=== PATIENT | male | born 1985 | race Caucasian/White ===

== ENCOUNTER 2018-01-23 13:05 | Emergency (ER) | payer BC ==
[2018-01-23] MEDS ORDERED: NA CHLORIDE 0.9% 1,000 ML ONE (13:29)
[2018-01-23 13:43] LABS: Absolute Lymphocytes (CBC) 1.8 K/uL (0.7-4.9); Absolute Monocytes 0.6 K/uL (0.1-1.3); Basophils % 0.6 % (0-1.3); Eosinophils % 0.3 % (0-4.4); Hematocrit 46.5 % (39.6-49.0); Lymphocytes % 15.9 % (15.3-44.8); MCH 29.7 pg (27.0-35.0); MCV 88.4 fL (80-100); MPV 8.7 fL (7.6-11.3); Monocytes % 5.6 % (3.3-12.3); RBC Red Blood Cell Count 5.26 M/uL (4.33-5.43)
[2018-01-23 13:48] LABS: Bicarbonate 26 mEq/L (21-31); Glucose Level 118 mg/dL (65-120); Lipase 29 U/L (22-51); Potassium 3.5 mEq/L (3.6-5.0); Sodium Level 139 mEq/L (135-145)
[2018-01-23 13:54] LABS: ALT/SGPT 15 IU/L (10-60); AST/SGOT 23 IU/L (10-42); Albumin 4.6 g/dL (3.2-5.5); Alkaline Phosphatase 65 IU/L (42-121); BUN Blood Urea Nitrogen 10 mg/dL (6-20); Bilirubin Direct 0.1 mg/dL (0-0.2); Bilirubin Total 0.5 mg/dL (0.3-1.2)
[2018-01-23] MEDS ORDERED: ONDANSETRON 4 MG/2 ML VIAL ONE (14:06)
[2018-01-23] MEDS ORDERED: MORPHINE 4 MG/ML SYR ONE (14:06)
[2018-01-23 14:28] LABS: Urine Blood NEGATIVE (NEG); Urine Glucose NEGATIVE (NEG); Urine Protein NEGATIVE (NEG); Urine Specific Gravity 1.015 (1.005-1.030); Urine pH 8.5 (5.0-7.0)
--- NOTE | 2018-01-23 15:29 | ER ---
Nurse's Notes [facility] Name: Slava Biswas Age: 32 yrs Sex: Male : 1985 Arrival Date: 01/23/2018 Time: 13:08 Bed 19 Private MD: Diagnosis: Unspecified abdominal pain Presentation: 01/23 13:17 Presenting complaint: Patient states: "I have Ulcerative Colitis, and I'm having a ss flare up." Pt reports abd pain that began this morning. Transition of care: patient was not received from another setting of care. Onset of symptoms was January 23, 2018. Care prior to arrival: None. 13:17 Method Of Arrival: Ambulatory ss 13:17 Acuity: TRACEE 3 ss Historical: - Allergies: 13:19 Codeine (Hives, rash); ss - PMHx: 13:19 Colitis; GERD; ss - PSHx: 13:19 Hernia repair; Tonsillectomy; nasal surgery; ss - Immunization history:: Adult Immunizations up to date. - Social history:: Smoking status: Patient/guardian denies using tobacco. Screenin:21 Abuse screen: Denies threats or abuse. Denies injuries from another. Nutritional aj1 screening: No deficits noted. Tuberculosis screening: No symptoms or risk factors identified. Assessment: 13:21 General: Appears in no apparent distress. uncomfortable, Behavior is calm, cooperative, aj1 appropriate for age. Pain: Complains of pain in right lower quadrant Pain does not radiate. Neuro: Level of Consciousness is awake, alert, obeys commands, Oriented to person, place, time, situation, Speech is normal, Facial symmetry appears normal. Cardiovascular: Patient's skin is warm and dry. Respiratory: Airway is patent Respiratory effort is even, unlabored, Respiratory pattern is regular, symmetrical. GI: Abdomen is flat, non-distended, Bowel sounds present X 4 quads. Abd is soft X 4 quads Abdomen is tender to palpation in right lower quadrant Reports diarrhea, nausea, Patient currently denies vomiting. : No signs and/or symptoms were reported regarding the genitourinary system. EENT: No signs and/or symptoms were reported regarding the EENT system. Derm: No signs and/or symptoms reported regarding the dermatologic system. Skin is pink, warm \\T\\ dry. normal. Musculoskeletal: No signs and/or symptoms reported regarding the musculoskeletal system. Circulation, motion, and sensation intact. 14:28 Reassessment: Patient appears in no apparent distress at this time. No changes from aj1 previously documented assessment. Patient and/or family updated on plan of care and expected duration. Pain level reassessed. Patient is alert, oriented x 3, equal unlabored respirations, skin warm/dry/pink. 15:43 Reassessment: Luc YAN discussed need for CT scan. Pt refuses to have CT scan done. kb1 Vital Signs: 13:19 Resp 16; Weight 113.4 kg; Height 5 ft. 10 in. (177.80 cm); Pain 7/10; ss 14:29 BP 134 / 89; Pulse 89; Resp 18; Pulse Ox 99% on R/A; aj1 15:47 BP 144 / 85; Pulse 85; Resp 18; Pulse Ox 100% ; kb1 13:19 Body Mass Index 35.87 (113.40 kg, 177.80 cm) ED Course: 13:08 Patient arrived in ED. sb2 13:16 Luc Portillo NP is PHCP. pm1 13:16 Pastor Esquivel MD is Attending Physician. pm1 13:17 Marietta Yu, RN is Primary Nurse. aj1 13:18 Triage completed. ss 13:19 Arm band placed on right wrist. ss 13:21 Patient has correct armband on for positive identification. aj1 13:21 No provider procedures requiring assistance completed. aj1 13:31 Initial lab(s) drawn, by wy, sent to lab. Inserted saline lock: 20 gauge in right 3 antecubital area, using aseptic technique. Blood collected. 13:58 Urine collected: clean catch specimen, clear. 3 15:28 Pastor Marquez MD is Referral Physician. pm1 15:48 IV discontinued, intact, bleeding controlled, No redness/swelling at site. Pressure kb1 dressing applied. Administered Medications: 13:31 Drug: NS 0.9% 1000 ml Route: IV; Rate: 1000 ml; Site: right antecubital; aj1 14:13 Follow up: IV Status: Completed infusion; IV Intake: 1000ml aj1 14:13 Drug: morphine 4 mg Route: IVP; Site: right antecubital; aj1 14:13 Drug: Zofran 4 mg Route: IVP; Site: right antecubital; aj1 15:44 Drug: Flagyl 500 mg Route: PO; kb1 15:45 Follow up: Response: Medication administered at discharge. kb1 15:45 Drug: Cipro 500 mg Route: PO; kb1 15:46 Follow up: Response: Medication administered at discharge. kb1 Intake: 14:13 IV: 1000ml; Total: 1000ml. aj1 Outcome: 15:29 Discharge ordered by MD. pm1 15:47 Discharged to home ambulatory. kb1 15:47 Condition: stable 15:47 Discharge instructions given to patient, Instructed on discharge instructions, follow up and referral plans. medication usage, Demonstrated understanding of instructions, follow-up care, medications, Prescriptions given X 3. 15:49 Patient left the ED. kb1 Signatures: Marietta Yu RN RN aj1 Ursula Encinas RN RN ss Luc Portillo, FARRAH CAFE SERVER pm1 Glenis Pappas 3 Elinor Gilbert RN RN kb1 Ariadna Bragg 2
--- NOTE | 2018-01-23 15:29 | EDPHYS ---
Physician Documentation [facility] Name: Slava Biswas Age: 32 yrs Sex: Male : 1985 Arrival Date: 01/23/2018 Time: 13:08 Bed 19 Private MD: ED Physician Pastor Esquivel HPI: 01/23 14:04 This 32 yrs old Male presents to ER via Ambulatory with complaints of Right pm1 Flank Pain. 14:04 The patient complains of pain in the right low back. Location: right lower quadrant. pm1 14:05 Onset: The symptoms/episode began/occurred this morning. Modifying factors: The pm1 symptoms are alleviated by nothing. the symptoms are aggravated by nothing. Associated signs and symptoms: Pertinent positives: diarrhea, nausea, Pertinent negatives: dysuria, fever, vomiting. The patient has experienced similar episodes in the past, multiple times, and the symptoms today are exactly the same, to previous ulcerative colitis flare ups. The patient has not recently seen a physician. Patient reports symptoms the same as prior ulcerative colitis flare umps. Patient manages his UC by eating well and probiotics. whenever he gets a flare up he typically gets a prescription of Cipro and Flagyl along with Ultram for pain. Historical: - Allergies: 13:19 Codeine (Hives, rash); ss - PMHx: 13:19 Colitis; GERD; ss - PSHx: 13:19 Hernia repair; Tonsillectomy; nasal surgery; ss - Immunization history:: Adult Immunizations up to date. - Social history:: Smoking status: Patient/guardian denies using tobacco. ROS: 14:05 Constitutional: Negative for fever, chills, and weight loss, Eyes: Negative for injury, pm1 pain, redness, and discharge, ENT: Negative for injury, pain, and discharge, Neck: Negative for injury, pain, and swelling, Cardiovascular: Negative for chest pain, palpitations, and edema, Respiratory: Negative for shortness of breath, cough, wheezing, and pleuritic chest pain. 14:05 : Negative for injury, bleeding, discharge, and swelling, MS/Extremity: Negative for injury and deformity, Skin: Negative for injury, rash, and discoloration, Neuro: Negative for headache, weakness, numbness, tingling, and seizure. 14:05 Abdomen/GI: Positive for abdominal pain, nausea, of the right lower quadrant, Mucoid bloody stool, Negative for vomiting, constipation. 14:05 Back: Positive for flank pain, on the right. Exam: 14:05 Constitutional: This is a well developed, well nourished patient who is awake, alert, pm1 and in no acute distress. Head/Face: Normocephalic, atraumatic. Eyes: Pupils equal round and reactive to light, extra-ocular motions intact. Lids and lashes normal. Conjunctiva and sclera are non-icteric and not injected. Cornea within normal limits. Periorbital areas with no swelling, redness, or edema. ENT: Nares patent. No nasal discharge, no septal abnormalities noted. Tympanic membranes are normal and external auditory canals are clear. Oropharynx with no redness, swelling, or masses, exudates, or evidence of obstruction, uvula midline. Mucous membranes moist. Neck: Trachea midline, no thyromegaly or masses palpated, and no cervical lymphadenopathy. Supple, full range of motion without nuchal rigidity, or vertebral point tenderness. No Meningismus. Chest/axilla: Normal chest wall appearance and motion. Nontender with no deformity. No lesions are appreciated. Cardiovascular: Regular rate and rhythm with a normal S1 and S2. No gallops, murmurs, or rubs. No pulse deficits. Respiratory: Lungs have equal breath sounds bilaterally, clear to auscultation and percussion. No rales, rhonchi or wheezes noted. No increased work of breathing, no retractions or nasal flaring. 14:05 Back: No spinal tenderness. No costovertebral tenderness. Full range of motion. Skin: Warm, dry with normal turgor. Normal color with no rashes, no lesions, and no evidence of cellulitis. MS/ Extremity: Pulses equal, no cyanosis. Neurovascular intact. Full, normal range of motion. 14:05 Abdomen/GI: Inspection: abdomen appears normal, Bowel sounds: normal, Palpation: abdomen is soft and non-tender. 14:05 Neuro: Orientation: is normal, Motor: is normal, moves all fours, Sensation: is normal, no obvious gross deficits, Gait: is steady, at a normal pace, without difficulty. Vital Signs: 13:19 Resp 16; Weight 113.4 kg; Height 5 ft. 10 in. (177.80 cm); Pain 7/10; ss 14:29 BP 134 / 89; Pulse 89; Resp 18; Pulse Ox 99% on R/A; aj1 15:47 BP 144 / 85; Pulse 85; Resp 18; Pulse Ox 100% ; kb1 13:19 Body Mass Index 35.87 (113.40 kg, 177.80 cm) ss MDM: 13:19 Patient medically screened. pm1 15:25 Refusal of service: The patient/guardian displays adequate decision making capability pm1 and despite a detailed discussion of alternatives, benefits, risks, and consequences refuses: CT Scan, Patient feels that his pain is exactly like his prior exacerbations of ulcerative colitis so he does not want a CT. If his pain worsened he said he will return for reevaluation and a CT. 15:25 Data reviewed: vital signs. Data interpreted: Pulse oximetry: on room air is 99 %. pm1 Interpretation: normal. 15:28 Counseling: I had a detailed discussion with the patient and/or guardian regarding: the pm1 historical points, exam findings, and any diagnostic results supporting the discharge/admit diagnosis, lab results, the need for outpatient follow up, a bench lay out technician, to return to the emergency department if symptoms worsen or persist or if there are any questions or concerns that arise at home. 01/23 13:20 Order name: Basic Metabolic Panel; Complete Time: 14:00 pm1 01/23 13:20 Order name: CBC with Diff; Complete Time: 14:00 pm1 01/23 13:20 Order name: Hepatic Function; Complete Time: 14:00 pm1 01/23 13:20 Order name: Lipase; Complete Time: 14:00 pm1 01/23 14:03 Order name: Urine Dipstick--Ancillary (enter results); Complete Time: 14:40 bd 01/23 13:20 Order name: IV Saline Lock; Complete Time: 13:32 pm1 01/23 13:20 Order name: Labs collected and sent; Complete Time: 13:32 pm1 01/23 13:20 Order name: Urine Dipstick-Ancillary (obtain specimen); Complete Time: 13:58 pm1 Administered Medications: 13:31 Drug: NS 0.9% 1000 ml Route: IV; Rate: 1000 ml; Site: right antecubital; [facility] 14:13 Follow up: IV Status: Completed infusion; IV Intake: 1000ml aj1 14:13 Drug: morphine 4 mg Route: IVP; Site: right antecubital; aj1 14:13 Drug: Zofran 4 mg Route: IVP; Site: right antecubital; aj1 15:44 Drug: Flagyl 500 mg Route: PO; kb1 15:45 Follow up: Response: Medication administered at discharge. kb1 15:45 Drug: Cipro 500 mg Route: PO; kb1 15:46 Follow up: Response: Medication administered at discharge. kb1 Disposition: 01/23/18 15:29 Discharged to Home. Impression: Unspecified abdominal pain. - Condition is Stable. - Discharge Instructions: Abdominal Pain, Adult, Ulcerative Colitis. - Prescriptions for Flagyl 500 mg Oral Tablet - take 1 tablet by ORAL route every 8 hours for 10 days; 30 tablet. Cipro 500 mg Oral Tablet - take 1 tablet by ORAL route every 12 hours for 7 days; 14 tablet. Tramadol 50 mg Oral Tablet - take 1 tablet by ORAL route every 8 hours as needed; 12 tablet. - Medication Reconciliation Form, Thank You Letter, Antibiotic Education, Prescription Opioid Use form. - Follow up: Emergency Department; When: As needed; Reason: Worsening of condition. Follow up: Pastor Marquez MD; When: 2 - 3 days; Reason: Recheck today's complaints, Continuance of care, Re-evaluation by your physician. - Problem is new. - Symptoms have improved. Addendum: 01/25/2018 07:31 Co-signature as Attending Physician, Pastor Esquivel MD I agree with the assessment and w a plan of care. Signatures: Dispatcher [employer] Marietta Chan RN RN aj1 Ursula Encinas RN RN Luc Portillo, FARRAH NON LINEAR EDITOR pm1 Pastor Esquivel MD MD wa Brown, Kristina, RN RN kb1
[2018-01-23] MEDS ORDERED: metroNIDAZOLE 500 MG TABLET ONE (15:33)
[2018-01-23] MEDS ORDERED: CIPROFLOXACIN HCL 500 MG TAB ONE (15:34)
== END 2018-01-23 15:49 | disposition home or self-care (01) ==
LOC: ER 13:05
DX: R10.9 Unspecified abdominal pain (principal); K21.9 Gastro-esophageal reflux disease without esophagitis; Z88.5 Allergy status to narcotic agent
CPT/HCPCS: 36415; 80048; 80076; 81003; 83690; 85025; 96361; 96374; 96375; 99284; J2405; J7030

== ENCOUNTER 2018-02-16 12:33 | Emergency (ER) | payer BC ==
[2018-02-16] MEDS ORDERED: HYDROCODONE/APAP 7.5/325 MG TAB ONE (13:05)
--- NOTE | 2018-02-16 14:20 | RAD REPORT ---
EXAM DESCRIPTION: RAD - Hand Right 3 View - 02/16/2018 2:06 pm CLINICAL HISTORY: Right hand pain status post injury FINDINGS: No fracture or dislocation is seen.
--- NOTE | 2018-02-16 14:28 | EDPHYS ---
Physician Documentation [facility] Name: Slava Biswas Age: 32 yrs Sex: Male : 1985 Arrival Date: 02/16/2018 Time: 12:48 Bed 24 Private MD: ED Physician Bacilio Newton HPI: 02/16 13:46 This 32 yrs old Male presents to ER via Ambulatory with complaints of Crush kb Injury To Hand. 13:47 The patient or guardian reports a contusion, injury, pain, swelling, tenderness. The kb complaints affect the dorsum of right hand. Context: The problem was sustained at home, outdoors, resulted from a crush injury, by a heavy object, bucket full of tools fell onto hand while cleaning out the garage. Onset: The symptoms/episode began/occurred today. Modifying factors: The symptoms are alleviated by nothing, the symptoms are aggravated by nothing. Associated signs and symptoms: The patient has no apparent associated signs or symptoms. Severity of symptoms: At their worst the symptoms were moderate, in the emergency department the symptoms are unchanged. The patient has not experienced similar symptoms in the past. The patient has not recently seen a physician. Historical: - Allergies: 12:56 Codeine (Hives, rash); ss - PMHx: 12:56 Colitis; GERD; ss - PSHx: 12:56 Hernia repair; Tonsillectomy; nasal surgery; ss - Immunization history:: Last tetanus immunization: up to date. - Social history:: Smoking status: Patient/guardian denies using tobacco. ROS: 13:47 Constitutional: Negative for fever, chills, and weight loss, Cardiovascular: Negative kb for chest pain, palpitations, and edema, Respiratory: Negative for shortness of breath, cough, wheezing, and pleuritic chest pain, Abdomen/GI: Negative for abdominal pain, nausea, vomiting, diarrhea, and constipation, Skin: Negative for injury, rash, and discoloration, Neuro: Negative for headache, weakness, numbness, tingling, and seizure. 13:47 MS/extremity: Positive for injury or acute deformity, contusion, decreased range of motion, pain, swelling, tenderness, Negative for abrasion, bite, deformity, erythema, laceration, paresthesias, puncture, rash, tingling, warmth. Exam: 13:47 Constitutional: This is a well developed, well nourished patient who is awake, alert, kb and in no acute distress. Head/Face: Normocephalic, atraumatic. Chest/axilla: Normal chest wall appearance and motion. Nontender with no deformity. No lesions are appreciated. Cardiovascular: Regular rate and rhythm with a normal S1 and S2. No gallops, murmurs, or rubs. Normal PMI, no JVD. No pulse deficits. Respiratory: Lungs have equal breath sounds bilaterally, clear to auscultation and percussion. No rales, rhonchi or wheezes noted. No increased work of breathing, no retractions or nasal flaring. Abdomen/GI: Soft, non-tender, with normal bowel sounds. No distension or tympany. No guarding or rebound. No evidence of tenderness throughout. Neuro: Awake and alert, GCS 15, oriented to person, place, time, and situation. Cranial nerves II-XII grossly intact. Motor strength 5/5 in all extremities. Sensory grossly intact. Cerebellar exam normal. Normal gait. 13:47 Musculoskeletal/extremity: Extremities: grossly normal except: noted in the dorsum of right hand: contusion, decreased ROM, ecchymosis, pain, swelling, tenderness, ROM: intact in all extremities, Circulation is intact in all extremities. Sensation intact. Vital Signs: 12:56 BP 131 / 94; Pulse 91; Resp 18 S; Temp 98.3(TE); Pulse Ox 97% on R/A; Weight 113.4 kg ss (R); Height 5 ft. 10 in. (177.80 cm) (R); Pain 7/10; 14:36 BP 134 / 90; Pulse 90; Resp 18; Pulse Ox 99% on R/A; kr2 12:56 Body Mass Index 35.87 (113.40 kg, 177.80 cm) ss MDM: 12:57 Patient medically screened. kb 13:49 Data reviewed: vital signs, nurses notes. Data interpreted: Pulse oximetry: on room air kb is 97 %. Interpretation: normal. 14:27 Counseling: I had a detailed discussion with the patient and/or guardian regarding: the kb historical points, exam findings, and any diagnostic results supporting the discharge/admit diagnosis, radiology results, the need for outpatient follow up, a family practitioner, to return to the emergency department if symptoms worsen or persist or if there are any questions or concerns that arise at home. 02/16 13:02 Order name: Hand Right 3 View XRAY; Complete Time: 14:21 kb Administered Medications: 13:06 Drug: [place] (7.5 mg-325 mg) 1 tabs Route: PO; kr2 14:25 Follow up: Response: No adverse reaction; Pain is decreased kr2 Disposition: 18:08 Co-signature as Attending Physician, Bacilio Newton MD. rn Disposition: 02/16/18 14:28 Discharged to Home. Impression: Contusion of right hand. - Condition is Stable. - Discharge Instructions: Hand Contusion, [id number]. - Prescriptions for Tramadol 50 mg Oral Tablet - take 1 tablet by ORAL route every 8 hours as needed; 12 tablet. - Medication Reconciliation Form, Thank You Letter, Antibiotic Education, Prescription Opioid Use form. - Follow up: Emergency Department; When: As needed; Reason: Worsening of condition. Follow up: Private Physician; When: 2 - 3 days; Reason: Recheck today's complaints, Continuance of care, Re-evaluation by your physician. Signatures: Dispatcher [employer] EDOR Veronica Holcomb, SUPERVISORY IT SPECIALIST-C SUPERVISORY IT SPECIALIST-Ckb Bacilio Newton MD MD rn Smirch, Shelby, RN RN ss Rosario Khan RN RN kr2 Corrections: (The following items were deleted from the chart) 14:40 14:28 02/16/2018 14:28 Discharged to Home. Impression: Contusion of right hand. kr2 Condition is Stable. Forms are Medication Reconciliation Form, Thank You Letter, Antibiotic Education, Prescription Opioid Use. Follow up: Emergency Department; When: As needed; Reason: Worsening of condition. Follow up: Private Physician; When: 2 - 3 days; Reason: Recheck today's complaints, Continuance of care, Re-evaluation by your physician. kb
--- NOTE | 2018-02-16 14:28 | ER ---
Nurse's Notes [facility] Name: Slava Biswas Age: 32 yrs Sex: Male : 1985 Arrival Date: 02/16/2018 Time: 12:48 Bed 24 Private MD: Diagnosis: Contusion of right hand Presentation: 02/16 12:55 Presenting complaint: Patient states: "I smashed my hand with a 20-lb bucket of tools". ss pt c/o right hand pain. Care prior to arrival: None. 12:55 Acuity: TRACEE 4 ss 12:55 Method Of Arrival: Ambulatory 12:55 Transition of care: patient was not received from another setting of care. Onset of ss symptoms was February 16, 2018. Initial Sepsis Screen: Does the patient meet any 2 criteria? No. Patient's initial sepsis screen is negative. Does the patient have a suspected source of infection? No. Patient's initial sepsis screen is negative. Historical: - Allergies: 12:56 Codeine (Hives, rash); ss - PMHx: 12:56 Colitis; GERD; ss - PSHx: 12:56 Hernia repair; Tonsillectomy; nasal surgery; ss - Immunization history:: Last tetanus immunization: up to date. - Social history:: Smoking status: Patient/guardian denies using tobacco. Screenin:13 Abuse screen: Denies threats or abuse. Denies injuries from another. Nutritional kr2 screening: No deficits noted. Tuberculosis screening: No symptoms or risk factors identified. Fall Risk None identified. Assessment: 13:09 General: Appears in no apparent distress. uncomfortable, well groomed, well developed, kr2 well nourished, Behavior is calm, cooperative. Pain: Complains of pain in right hand Pain currently is 5 out of 10 on a pain scale. Quality of pain is described as aching, Is continuous, Alleviated by nothing. Neuro: Level of Consciousness is awake, alert, obeys commands, Oriented to person, place, time, situation, Intact. Cardiovascular: Capillary refill < 3 seconds in bilateral fingers Patient's skin is warm and dry. Respiratory: Airway is patent Respiratory effort is even, unlabored, Respiratory pattern is regular, symmetrical. GI: Abdomen is round non-distended. : No signs and/or symptoms were reported regarding the genitourinary system. EENT: Derm: Skin is intact, is healthy with good turgor, Skin is pink, warm \\T\\ dry. Derm: Bruising that is dark purple, on right hand. Musculoskeletal: Circulation, motion, and sensation intact. Swelling present in dorsal aspect of proximal phalanx of right middle finger, dorsal aspect of proximal phalanx of right ring finger, dorsal aspect of proximal phalanx of right little finger and dorsum of right hand. Injury Description: Crush injury sustained to right hand. 14:39 Reassessment: Patient appears in no apparent distress at this time. Patient and/or kr2 family updated on plan of care and expected duration. Pain level reassessed. Patient is alert, oriented x 3, equal unlabored respirations, skin warm/dry/pink. Given ice pack. Vital Signs: 12:56 BP 131 / 94; Pulse 91; Resp 18 S; Temp 98.3(TE); Pulse Ox 97% on R/A; Weight 113.4 kg ss (R); Height 5 ft. 10 in. (177.80 cm) (R); Pain 7/10; 14:36 BP 134 / 90; Pulse 90; Resp 18; Pulse Ox 99% on R/A; kr2 12:56 Body Mass Index 35.87 (113.40 kg, 177.80 cm) ss ED Course: 12:48 Patient arrived in ED. sb2 12:55 Triage completed. ss 12:55 Arm band placed on. ss 12:57 Veronica Holcomb FNP-C [facility]. kb 12:57 Bacilio Newton MD is Attending Physician. kb 13:02 Rosario Khan RN is Primary Nurse. kr2 13:13 Patient has correct armband on for positive identification. Bed in low position. Call kr2 light in reach. Side rails up X2. Pulse ox on. NIBP on. Door closed. Warm blanket given. Head of bed elevated. 14:04 X-ray completed. Portable x-ray completed in exam room. Patient tolerated procedure la2 well. 14:05 Hand Right 3 View XRAY In Process Unspecified. EDMS 14:38 No provider procedures requiring assistance completed. Patient did not have IV access kr2 during this emergency room visit. Administered Medications: 13:06 Drug: [place] (7.5 mg-325 mg) 1 tabs Route: PO; kr2 14:25 Follow up: Response: No adverse reaction; Pain is decreased kr2 Outcome: 14:28 Discharge ordered by MD. deshpande 14:39 Discharged to home ambulatory. kr2 14:39 Condition: good 14:39 Discharge instructions given to patient, Instructed on discharge instructions, follow up and referral plans. medication usage, Demonstrated understanding of instructions, follow-up care, medications, Prescriptions given X 1. 14:40 Patient left the ED. kr2 Signatures: Dispatcher [employer] EDMS Veronica Holcomb, ADAM-Noemy MEDINA-Ursula Rivers, RN RN Kourtney Garcia2 Rosario Khan RN RN kr2 Ariadna Bragg2
== END 2018-02-16 14:40 | disposition home or self-care (01) ==
LOC: ER 12:33
DX: S60.221A Contusion of right hand, initial encounter (principal); X58.XXXA Exposure to other specified factors, initial encounter; Y93.H9 Activity, other involving exterior property and land maintenance, building and construction; Y92.008 Other place in unspecified non-institutional (private) residence as the place of occurrence of the external cause; Z88.5 Allergy status to narcotic agent
CPT/HCPCS: 99284

== ENCOUNTER 2018-06-29 13:50 | Emergency (ER) | payer BC ==
[2018-06-29] MEDS ORDERED: NA CHLORIDE 0.9% 1,000 ML ONE (14:25)
[2018-06-29] MEDS ORDERED: ONDANSETRON 4 MG/2 ML VIAL ONE (14:26)
[2018-06-29] MEDS ORDERED: FENTANYL CITR 100 MCG/2 ML ONE (14:26)
[2018-06-29 14:51] LABS: Absolute Lymphocytes (CBC) 1.9 K/uL (0.7-4.9); Absolute Monocytes 0.8 K/uL (0.1-1.3); Absolute Neutrophil 8.9 K/uL (1.8-8.0); Basophils % 0.3 % (0-1.3); Eosinophils % 0.6 % (0-4.4); Hematocrit 47.3 % (39.6-49.0); MCH 31.1 pg (27.0-35.0); MCV 89.4 fL (80-100); MPV 8.9 fL (7.6-11.3); Monocytes % 6.6 % (3.3-12.3); RBC Red Blood Cell Count 5.28 M/uL (4.33-5.43)
[2018-06-29 15:18] LABS: Albumin 4.1 g/dL (3.4-5.0); Bilirubin Direct 0.1 mg/dL (0-0.2); Bilirubin Total 0.6 mg/dL (0.2-1.0); Potassium 3.8 mmol/L (3.5-5.1); Protein, Total 8.2 g/dL (6.4-8.2)
--- NOTE | 2018-06-29 15:19 | RAD REPORT ---
EXAM DESCRIPTION: CT - Abdomen Pelvis W Contrast - 06/29/2018 3:06 pm CLINICAL HISTORY: Abdominal pain with diarrhea since this morning COMPARISON: January 2017 TECHNIQUE: Computed axial tomography of the abdomen pelvis was obtained. 100 cc Isovue-300 was admin istered intravenously. Oral contrast was not requested which limits evaluation of bowel. All CT scans are performed using dose optimization technique as appropriate and may include automated exposure control or mA/KV adjustment according to patient size. FINDINGS: The liver, spleen, pancreas, adrenal and kidneys appear unremarkable. There is no evidence of diverticulitis. The appendix is normal. There is apparent thickening of a portion of the wall of the descending colon IMPRESSION: Apparent thickening of the wall of a portion of the descending colon may be secondary to incomplete distention or a mild colitis
--- NOTE | 2018-06-29 15:25 | ER ---
Nurse's Notes [facility] Name: Slava Biswas Age: 33 yrs Sex: Male : 1985 Arrival Date: 06/29/2018 Time: 13:52 Bed 13 Private MD: Cecilio Merida Diagnosis: Ulcerative colitis Presentation: 06/29 14:02 Presenting complaint: Patient states: "I think I am having a flare of my Ulcerative aj Colitis." Diarrhea and abdominal pain since this AM. Transition of care: patient was not received from another setting of care. Onset of symptoms was June 29, 2018. Risk Assessment: Do you want to hurt yourself or someone else? Patient reports no desire to harm self or others. Initial Sepsis Screen: Does the patient meet any 2 criteria? No. Patient's initial sepsis screen is negative. Does the patient have a suspected source of infection? No. Patient's initial sepsis screen is negative. Care prior to arrival: None. 14:02 Method Of Arrival: Ambulatory aj 14:02 Acuity: TRACEE 3 aj Triage Assessment: 14:04 General: Appears in no apparent distress. uncomfortable, Behavior is calm, cooperative, aj appropriate for age. Pain: Complains of pain in right lower quadrant and left lower quadrant. Neuro: Level of Consciousness is awake, alert, obeys commands, Oriented to person, place, time, situation, Appropriate for age. Respiratory: Airway is patent Respiratory effort is even, unlabored, Respiratory pattern is regular, symmetrical. GI: Reports lower abdominal pain, diarrhea. Derm: Skin is intact, is healthy with good turgor, Skin is pink, warm \\T\\ dry. normal. Historical: - Allergies: 14:04 Codeine (Hives, rash); aj - Home Meds: 14:04 Prilosec 40 mg Oral cpDR 1 cap 2 times per day [Active]; Probiotic Oral [Active]; aj - PMHx: 14:04 Colitis; GERD; aj - PSHx: 14:04 Hernia repair; Tonsillectomy; nasal surgery; aj - Immunization history:: Adult Immunizations up to date. - Social history:: Smoking status: Patient/guardian denies using tobacco. - Ebola Screening: : Patient negative for fever greater than or equal to 101.5 degrees Fahrenheit, and additional compatible Ebola Virus Disease symptoms Patient denies exposure to infectious person Patient denies travel to an Ebola-affected area in the 21 days before illness onset No symptoms or risks identified at this time. Screenin:03 Abuse screen: Denies threats or abuse. Denies injuries from another. Nutritional jl7 screening: No deficits noted. Tuberculosis screening: No symptoms or risk factors identified. Fall Risk IV access (20 points). Total Brennan Fall Scale indicates No Risk (0-24 pts). Assessment: 14:30 General: Appears in no apparent distress. uncomfortable, Behavior is calm, cooperative, jl7 appropriate for age. Pain: Complains of pain in left lower quadrant and right lower quadrant Quality of pain is described as sharp, Pain began this morning Is continuous. Neuro: Level of Consciousness is awake, alert, obeys commands, Oriented to person, place, time, situation. Cardiovascular: Patient's skin is warm and dry. Respiratory: Airway is patent Respiratory effort is even, unlabored, Respiratory pattern is regular, symmetrical. GI: Abdomen is round non-distended, Bowel sounds present X 4 quads. Abd is soft X 4 quads Abdomen is tender to palpation in right lower quadrant and left lower quadrant. : No signs and/or symptoms were reported regarding the genitourinary system. EENT: No signs and/or symptoms were reported regarding the EENT system. Derm: Skin is pink, warm \\T\\ dry. Musculoskeletal: No signs and/or symptoms reported regarding the musculoskeletal system. 15:30 Reassessment: Patient and/or family updated on plan of care and expected duration. Pain jl7 level reassessed. Patient is alert, oriented x 3, equal unlabored respirations, skin warm/dry/pink. 15:50 Reassessment: Pt reports increased pain, requesting something for pain before he jl7 leaves, provider notified, see MAR for orders. Vital Signs: 14:04 BP 130 / 96; Pulse 113; Resp 20; Temp 99.3; Pulse Ox 98% on R/A; Weight 115.67 kg; aj Height 5 ft. 10 in. (177.80 cm); 15:03 BP 131 / 86; Pulse 87; Resp 16 S; Pulse Ox 96% on R/A; jl7 15:50 BP 128 / 81; Pulse 86; Resp 16 S; Pulse Ox 99% on R/A; Pain 6/10; jl7 14:04 Body Mass Index 36.59 (115.67 kg, 177.80 cm) aj ED Course: 13:52 Patient arrived in ED. mr 13:52 Cecilio Merida MD is Private Physician. mr 14:03 Triage completed. aj 14:04 Arm band placed on left wrist. Patient placed in an exam room. aj 14:10 Luis Carlos Thomas PA is PHCP. jr8 14:10 Pastor Esquivel MD is Attending Physician. jr8 14:18 Brittny Zepeda RN is Primary Nurse. jl7 14:22 Radiology exam delayed due to lab results not completed at this time. (BUN/Creatinine). sj 15:[address] via wheelchair. cw1 15:03 Patient has correct armband on for positive identification. Placed in gown. Bed in low jl7 position. Call light in reach. Side rails up X 1. Pulse ox on. NIBP on. Warm blanket given. 15:03 Initial lab(s) drawn, by me, by EMS personnel. Urine collected: clean catch specimen, jl7 clear. Inserted saline lock: 20 gauge in right antecubital area, using aseptic technique. Blood collected. 15:06 CT completed. Patient moved back from CT. cw1 15:07 CT Abd/Pelvis - W/Contrast In Process Unspecified. EDMS 15:24 Pastor Marquez MD is Referral Physician. jr8 16:02 No provider procedures requiring assistance completed. IV discontinued, intact, jl7 bleeding controlled, No redness/swelling at site. Pressure dressing applied. Administered Medications: 13:32 Drug: Zofran 4 mg Route: IVP; Site: right antecubital; jl7 15:00 Follow up: Response: No adverse reaction jl7 14:30 Drug: NS 0.9% 1000 ml Route: IV; Rate: 1000 ml; Site: right antecubital; jl7 15:47 Follow up: Response: No adverse reaction; IV Status: Completed infusion jl7 14:35 Drug: fentaNYL (PF) 50 mcg Route: IVP; Site: right antecubital; jl7 15:00 Follow up: Response: No adverse reaction; Pain is decreased jl7 15:54 Drug: fentaNYL (PF) 50 mcg Route: IVP; Site: right antecubital; jl7 16:00 Follow up: Response: Medication administered at discharge. jl7 15:58 Drug: Cipro 500 mg Route: PO; jl7 15:59 Follow up: Response: No adverse reaction; Medication administered at discharge. 15:59 Drug: Flagyl 500 mg Route: PO; 15:59 Follow up: Response: Medication administered at discharge. jl7 Outcome: 15:24 Discharge ordered by . jrGuilherme 16:02 Discharged to home ambulatory. jl7 16:02 Condition: stable 16:02 Discharge instructions given to patient, Instructed on discharge instructions, follow up and referral plans. medication usage, Demonstrated understanding of instructions, follow-up care, medications, Prescriptions given X 3. 16:03 Patient left the ED. jl7 Signatures: Dispatcher [employer] EDMS Bernie Don, RN RN Josseline Lozano, Maegan Amezquita, Tashia cw1 Luis Carlos Thomas PA PA jr8 Leal, Jahala, RN RN jl7 Corrections: (The following items were deleted from the chart) 59 15:59 Response: No adverse reaction 7 jl7
--- NOTE | 2018-06-29 15:25 | EDPHYS ---
Physician Documentation [facility] Name: Slava Biswas Age: 33 yrs Sex: Male : 1985 Arrival Date: 06/29/2018 Time: 13:52 Bed 13 Private MD: Cecilio Merida ED Physician Pastor Esquivel HPI: 06/29 14:16 This 33 yrs old Male presents to ER via Ambulatory with complaints of jr8 Abdominal Pain. 14:16 The patient presents with abdominal pain right lower quadrant. Onset: The jr8 symptoms/episode began/occurred acutely, today. The symptoms do not radiate. Associated signs and symptoms: Pertinent positives: diarrhea, nausea. The symptoms are described as stabbing. Modifying factors: The symptoms are alleviated by nothing, the symptoms are aggravated by nothing. Severity of pain: At its worst the pain was moderate in the emergency department the pain is unchanged. The patient has experienced similar episodes in the past, a few times. The patient has not recently seen a physician. 14:16 History of UC. Feels he is having a flare up of it . jr8 Historical: - Allergies: 14:04 Codeine (Hives, rash); aj - Home Meds: 14:04 Prilosec 40 mg Oral cpDR 1 cap 2 times per day [Active]; Probiotic Oral [Active]; aj - PMHx: 14:04 Colitis; GERD; aj - PSHx: 14:04 Hernia repair; Tonsillectomy; nasal surgery; aj - Immunization history:: Adult Immunizations up to date. - Social history:: Smoking status: Patient/guardian denies using tobacco. - Ebola Screening: : Patient negative for fever greater than or equal to 101.5 degrees Fahrenheit, and additional compatible Ebola Virus Disease symptoms Patient denies exposure to infectious person Patient denies travel to an Ebola-affected area in the 21 days before illness onset No symptoms or risks identified at this time. ROS: 14:16 Eyes: Negative for injury, pain, redness, and discharge, ENT: Negative for injury, jr8 pain, and discharge, Neck: Negative for injury, pain, and swelling, Cardiovascular: Negative for chest pain, palpitations, and edema, Respiratory: Negative for shortness of breath, cough, wheezing, and pleuritic chest pain, Back: Negative for injury and pain, MS/Extremity: Negative for injury and deformity, Skin: Negative for injury, rash, and discoloration, Neuro: Negative for headache, weakness, numbness, tingling, and seizure. 14:16 Abdomen/GI: Positive for abdominal pain, nausea, diarrhea, Negative for vomiting, constipation, abdominal distension, anorexia, dysphagia, hematemesis, black/tarry stool, rectal pain, rectal bleeding, bowel incontinence, flatulence. Exam: 14:16 Eyes: Pupils equal round and reactive to light, extra-ocular motions intact. Lids and jr8 lashes normal. Conjunctiva and sclera are non-icteric and not injected. Cornea within normal limits. Periorbital areas with no swelling, redness, or edema. ENT: Nares patent. No nasal discharge, no septal abnormalities noted. Tympanic membranes are normal and external auditory canals are clear. Oropharynx with no redness, swelling, or masses, exudates, or evidence of obstruction, uvula midline. Mucous membranes moist. Neck: Trachea midline, no thyromegaly or masses palpated, and no cervical lymphadenopathy. Supple, full range of motion without nuchal rigidity, or vertebral point tenderness. No Meningismus. Cardiovascular: Regular rate and rhythm with a normal S1 and S2. No gallops, murmurs, or rubs. Normal PMI, no JVD. No pulse deficits. Respiratory: Lungs have equal breath sounds bilaterally, clear to auscultation and percussion. No rales, rhonchi or wheezes noted. No increased work of breathing, no retractions or nasal flaring. Back: No spinal tenderness. No costovertebral tenderness. Full range of motion. Skin: Warm, dry with normal turgor. Normal color with no rashes, no lesions, and no evidence of cellulitis. MS/ Extremity: Pulses equal, no cyanosis. Neurovascular intact. Full, normal range of motion. Neuro: Awake and alert, GCS 15, oriented to person, place, time, and situation. Cranial nerves II-XII grossly intact. Motor strength 5/5 in all extremities. Sensory grossly intact. Cerebellar exam normal. Normal gait. 14:16 Abdomen/GI: Inspection: obese Bowel sounds: active, all quadrants, Palpation: soft, in all quadrants, moderate abdominal tenderness, in the right lower quadrant, mass, is not appreciated, rebound tenderness, is not appreciated, voluntary guarding, is not appreciated, involuntary guarding, is not appreciated, no appreciated organomegaly, Indicators: McBurney's point is tender, Titus's sign is negative, Rovsing's sign is negative, Liver: no appreciated palpable abnormalities, tenderness, is not appreciated. Vital Signs: 14:04 BP 130 / 96; Pulse 113; Resp 20; Temp 99.3; Pulse Ox 98% on R/A; Weight 115.67 kg; aj Height 5 ft. 10 in. (177.80 cm); 15:03 BP 131 / 86; Pulse 87; Resp 16 S; Pulse Ox 96% on R/A; jl7 15:50 BP 128 / 81; Pulse 86; Resp 16 S; Pulse Ox 99% on R/A; Pain 6/10; jl7 14:04 Body Mass Index 36.59 (115.67 kg, 177.80 cm) aj MDM: 14:10 Patient medically screened. jr8 15:23 Data reviewed: vital signs, nurses notes, lab test result(s), radiologic studies, CT jr8 scan, and as a result, I will discharge patient. Data interpreted: Pulse oximetry: on room air is 96 %. Interpretation: normal. 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 06/29 14:14 Order name: Basic Metabolic Panel; Complete Time: 15:22 06/29 14:14 Order name: CBC with Diff; Complete Time: 14:59 06/29 14:14 Order name: Creatinine for Radiology; Complete Time: 15:16 06/29 14:14 Order name: Hepatic Function; Complete Time: 15:22 jr06/29 14:14 Order name: Lipase; Complete Time: 15:22 06/29 15:27 Order name: Urine Dipstick--Ancillary (enter results) ag 06/29 14:15 Order name: CT Abd/Pelvis - W/Contrast; Complete Time: 15:22 06/29 15:27 Order name: Urine Dipstick-Ancillary; Complete Time: 15:57 EDMS 06/29 14:14 Order name: IV Saline Lock; Complete Time: 15:01 [facility] 06/29 14:14 Order name: Labs collected and sent; Complete Time: 15:00 [facility] 06/29 14:14 Order name: Urine Dipstick-Ancillary (obtain specimen); Complete Time: 14:18 jr Administered Medications: 13:32 Drug: Zofran 4 mg Route: IVP; Site: right antecubital; jl7 15:00 Follow up: Response: No adverse reaction jl7 14:30 Drug: NS 0.9% 1000 ml Route: IV; Rate: 1000 ml; Site: right antecubital; jl7 15:47 Follow up: Response: No adverse reaction; IV Status: Completed infusion jl7 14:35 Drug: fentaNYL (PF) 50 mcg Route: IVP; Site: right antecubital; jl7 15:00 Follow up: Response: No adverse reaction; Pain is decreased jl7 15:54 Drug: fentaNYL (PF) 50 mcg Route: IVP; Site: right antecubital; jl7 16:00 Follow up: Response: Medication administered at discharge. jl7 15:58 Drug: Cipro 500 mg Route: PO; jl7 15:59 Follow up: Response: No adverse reaction; Medication administered at discharge. jl7 15:59 Drug: Flagyl 500 mg Route: PO; jl7 15:59 Follow up: Response: Medication administered at discharge. 7 Disposition: 06/29/18 15:24 Discharged to Home. Impression: Ulcerative colitis. - Condition is Stable. - Discharge Instructions: Ulcerative Colitis, Adult. - Prescriptions for Cipro 500 mg Oral Tablet - take 1 tablet by ORAL route every 12 hours for 10 days; 20 tablet. Flagyl 500 mg Oral Tablet - take 1 tablet by ORAL route every 6 hours for 10 days; 40 tablet. Tramadol 50 mg Oral Tablet - take 1 tablet by ORAL route every 8 hours as needed; 20 tablet. - Medication Reconciliation Form, Thank You Letter, Antibiotic Education, Prescription Opioid Use form. - Follow up: Pastor Marquez MD; When: 2 - 3 days; Reason: Recheck today's complaints, Continuance of care, Re-evaluation by your physician. - Problem is new. - Symptoms have improved. Addendum: 07/01/2018 08:06 Co-signature as Attending Physician, Pastor Esquivel MD I agree with the assessment and w a plan of care. Signatures: Dispatcher [employer] Bernie Bone, RN RN Luis Carlos Fermin PA PA jr8 Brittny Zepeda RN RN jl7 Pastor Esquivel MD MD tx Corrections: (The following items were deleted from the chart) 06/29 16:03 15:24 06/29/2018 15:24 Discharged to Home. Impression: Ulcerative colitis. Condition is jl7 Stable. Forms are Medication Reconciliation Form, Thank You Letter, Antibiotic Education, Prescription Opioid Use. Follow up: Pastor Marquez; When: 2 - 3 days; Reason: Recheck today's complaints, Continuance of care, Re-evaluation by your physician. Problem is new. Symptoms have improved. jr8
[2018-06-29 15:56] LABS: Urine Blood NEGATIVE (NEG); Urine Glucose NEGATIVE (NEG); Urine Protein NEGATIVE (NEG); Urine Specific Gravity 1.015 (1.005-1.030); Urine pH 7.5 (5.0-7.0)
[2018-06-29] MEDS ORDERED: metroNIDAZOLE 500 MG TABLET ONE (15:57)
[2018-06-29] MEDS ORDERED: CIPROFLOXACIN HCL 500 MG TAB ONE (15:58)
== END 2018-06-29 16:03 | disposition home or self-care (01) ==
LOC: ER 13:50
DX: K51.90 Ulcerative colitis, unspecified, without complications (principal); K21.9 Gastro-esophageal reflux disease without esophagitis; Z88.6 Allergy status to analgesic agent
CPT/HCPCS: 36415; 74177; 80048; 80076; 81003; 83690; 85025; 96361; 96374; 96375; 99284; J2405; J3010; J7030; Q9967

== ENCOUNTER 2018-07-12 11:33 | Emergency (ER) | payer BC ==
[2018-07-12] MEDS ORDERED: FENTANYL CITR 100 MCG/2 ML ONE (12:36)
[2018-07-12] MEDS ORDERED: Ringers Lactate 1,000 ML IV ONE (12:36)
[2018-07-12] MEDS ORDERED: ONDANSETRON 4 MG/2 ML VIAL ONE (12:36)
[2018-07-12 12:57] LABS: Absolute Lymphocytes (CBC) 1.5 K/uL (0.7-4.9); Absolute Monocytes 0.7 K/uL (0.1-1.3); Absolute Neutrophil 7.8 K/uL (1.8-8.0); Basophils % 0.4 % (0-1.3); Eosinophils % 0.5 % (0-4.4); Hematocrit 42.8 % (39.6-49.0); Lymphocytes % 15.3 % (15.3-44.8); MCH 31.7 pg (27.0-35.0); MCV 89.4 fL (80-100); MPV 8.8 fL (7.6-11.3); Monocytes % 7.2 % (3.3-12.3); RBC Red Blood Cell Count 4.79 M/uL (4.33-5.43)
[2018-07-12 13:08] LABS: Albumin 3.9 g/dL (3.4-5.0); Bilirubin Direct 0.1 mg/dL (0-0.2); Bilirubin Total 0.3 mg/dL (0.2-1.0); Protein, Total 7.8 g/dL (6.4-8.2)
--- NOTE | 2018-07-12 13:54 | EDPHYS ---
Physician Documentation [facility] Name: Slava Biswas Age: 33 yrs Sex: Male : 1985 Arrival Date: 07/12/2018 Time: 11:36 Bed 14 Private MD: Cecilio Merida ED Physician Bacilio Newton HPI: 07/12 12:16 This 33 yrs old Male presents to ER via Ambulatory with complaints of jmm Abdominal Pain, Diarrhea. 12:16 The patient presents with abdominal pain right lower quadrant. Onset: The jmm symptoms/episode began/occurred gradually, 1 day(s) ago. The symptoms do not radiate. Associated signs and symptoms: Pertinent positives: diarrhea. The symptoms are described as achy, crampy, dull. The patient has experienced similar episodes in the past, several times. This is a 33 year old male with a history of UC that presents to the ED with right lower abdominal cramping beginning last night with diarrhea which was initially blood and now mucusy. Patient states his symptoms are similar UC flares. Patient denies vomiting. . Historical: - Allergies: 11:49 Codeine (Hives, rash); ss - PMHx: 11:49 Colitis; GERD; ss - PSHx: 11:49 Hernia repair; Tonsillectomy; nasal surgery; ss - Immunization history:: Adult Immunizations up to date. - Social history:: Smoking status: Patient/guardian denies using tobacco. - Ebola Screening: : Patient denies exposure to infectious person Patient denies travel to an Ebola-affected area in the 21 days before illness onset. ROS: 12:16 Constitutional: Negative for fever, chills, and weight loss, Cardiovascular: Negative jmm for chest pain, palpitations, and edema, Respiratory: Negative for shortness of breath, cough, wheezing, and pleuritic chest pain. 12:16 Abdomen/GI: Positive for abdominal pain, diarrhea. 12:16 All other systems are negative. Exam: 12:16 Head/Face: atraumatic. Eyes: EOMI, no conjunctival erythema appreciated ENT: Moist jmm Mucus Membranes Neck: Trachea midline, Supple Chest/axilla: Normal chest wall appearance and motion. Cardiovascular: Regular rate and rhythm. No edema appreciated Respiratory: Normal respirations, no respiratory distress appreciated 12:16 Constitutional: The patient appears in no acute distress, alert, awake. 12:16 Abdomen/GI: Inspection: abdomen appears normal, Bowel sounds: normal, Palpation: soft, in the right lower quadrant, no guarding appreciated, not rebound appreciated. 12:16 Back: CVA tenderness, is absent. 12:16 Musculoskeletal/extremity: ROM: intact in all extremities. 12:16 Skin: Appearance: Color: normal in color. 12:16 Neuro: Orientation: is normal, Mentation: is normal, Memory: is normal. 12:16 Psych: Behavior/mood is pleasant, cooperative. Vital Signs: 11:49 BP 161 / 103; Pulse 110; Resp 16; Temp 97.3(TE); Pulse Ox 99% ; Weight 113.4 kg; Height ss 5 ft. 10 in. (177.80 cm); Pain 7/10; 12:43 BP 135 / 89; Pulse 86; Resp 18; Pulse Ox 96% on R/A; Pain 7/10; em 13:00 BP 129 / 83; Pulse 78; Resp 18; Pulse Ox 100% on R/A; Pain 5/10; em 14:24 BP 116 / 90; Pulse 84; Resp 18; Pulse Ox 99% on R/A; Pain 4/10; em 11:49 Body Mass Index 35.87 (113.40 kg, 177.80 cm) MDM: 12:16 Patient medically screened. [facility] 13:51 Data reviewed: vital signs, nurses notes, lab test result(s), radiologic studies, CT [facility] scan. Data interpreted: Pulse oximetry: on room air is 96 %. Interpretation: normal. Counseling: I had a detailed discussion with the patient and/or guardian regarding: the historical points, exam findings, and any diagnostic results supporting the discharge/admit diagnosis, the presence of at least one elevated blood pressure reading (>120/80) during this emergency department visit, lab results, radiology results, to return to the emergency department if symptoms worsen or persist or if there are any questions or concerns that arise at home. ED course: I discussed risks/benefits of CT imaging with the patient. Patient states his pain is similar to previous UC flares. Patient has no rebound or guarding in the right lower quadrant but patient does complain of generalized ache to the area. patient will be given a course of abx along with early appendicities or worsening abdominal pain return precautions. Patient will otherwise follow up with Dr. Marquez early next week. Patient understood and agrees with the plan of care. . 07/12 12:10 Order name: Basic Metabolic Panel; Complete Time: 13:13 [facility] 07/12 12:10 Order name: CBC with Diff; Complete Time: 13:13 [facility] 07/12 12:10 Order name: Creatinine for Radiology; Complete Time: 13:13 [facility] 07/12 12:10 Order name: Hepatic Function; Complete Time: 13:13 [facility] 07/12 12:10 Order name: Lipase; Complete Time: 13:13 [facility] 07/12 14:20 Order name: Urine Dipstick--Ancillary (enter results) 07/12 12:10 Order name: IV Saline Lock; Complete Time: 12:40 [facility] 07/12 12:10 Order name: Labs collected and sent; Complete Time: 12:40 [facility] Administered Medications: 12:28 CANCELLED (Physician Discretion): Lactated Ringers Solution 1000 ml IV at 1000 TKO aa5 continuous 12:44 Drug: Lactated Ringers Solution 1000 ml Route: IV; Rate: 1000 units/hr; Site: right em antecubital; 13:40 Follow up: IV Status: Completed infusion; IV Intake: 1000ml em 12:45 Drug: Zofran 4 mg Route: IVP; Site: right antecubital; ss 13:40 Follow up: Response: No adverse reaction em 12:45 Drug: fentaNYL (PF) 50 mcg Route: IVP; Site: right antecubital; ss 13:00 Follow up: Response: No adverse reaction; Pain is decreased em 13:52 Drug: fentaNYL (PF) 50 mcg Route: IVP; Site: right antecubital; em 14:20 Follow up: Response: No adverse reaction; Pain is decreased em Disposition: 15:46 Co-signature as Attending Physician, Bacilio Newton MD. rn Disposition: 07/12/18 13:54 Discharged to Home. Impression: Other ulcerative colitis. - Condition is Stable. - Discharge Instructions: Ulcerative Colitis, Adult. - Prescriptions for Flagyl 500 mg Oral Tablet - take 1 tablet by ORAL route every 8 hours for 10 days; 30 tablet. Ultram 50 mg Oral Tablet - take 1 tablet by ORAL route every 6 hours As needed; 20 tablet. Cipro 500 mg Oral Tablet - take 1 tablet by ORAL route every 12 hours for 7 days; 14 tablet. - Medication Reconciliation Form, Thank You Letter, Antibiotic Education, Prescription Opioid Use form. - Follow up: Pastor Marquez MD; When: 2 - 3 days; Reason: Recheck today's complaints, Continuance of care, Re-evaluation by your physician. Signatures: Dispatcher [employer] EDMS Florentino Georges PA PA Lavon Jones, RESIDENT BUYER RESIDENT BUYER em Bacilio Newton MD MD rn Calderon, Audri, RN RN aa5 Ursula Encinas RN RN ss Corrections: (The following items were deleted from the chart) 12:28 12:10 Lactated Ringers Solution 1000 ml IV at 1000 TKO continuous ordered. sonu aa5 12:28 12:28 Lactated Ringers Solution 1000 ml IV at 1000 TKO continuous ordered. ruma aa5 14:26 13:54 07/12/2018 13:54 Discharged to Home. Impression: Other ulcerative colitis. em Condition is Stable. Forms are Medication Reconciliation Form, Thank You Letter, Antibiotic Education, Prescription Opioid Use. Follow up: Pastor Marquez; When: 2 - 3 days; Reason: Recheck today's complaints, Continuance of care, Re-evaluation by your physician. sonu
--- NOTE | 2018-07-12 13:54 | ER ---
Nurse's Notes [facility] Name: Slava Biswas Age: 33 yrs Sex: Male : 1985 Arrival Date: 07/12/2018 Time: 11:36 Bed 14 Private MD: Cecilio Merida Diagnosis: Other ulcerative colitis Presentation: 07/12 11:47 Presenting complaint: Patient states: abd pain nausea and diarrhea that began last ss night. Pt believes this is a flare up of his colitis that he was dealing with approx 2 days ago. Transition of care: patient was not received from another setting of care. Onset of symptoms was July 11, 2018. Risk Assessment: Do you want to hurt yourself or someone else? Patient reports no desire to harm self or others. Initial Sepsis Screen: Does the patient meet any 2 criteria? HR > 90 bpm. Does the patient have a suspected source of infection? No. Patient's initial sepsis screen is negative. Care prior to arrival: None. 11:47 Method Of Arrival: Ambulatory ss 11:47 Acuity: TRACEE 3 ss Historical: - Allergies: 11:49 Codeine (Hives, rash); ss - PMHx: 11:49 Colitis; GERD; ss - PSHx: 11:49 Hernia repair; Tonsillectomy; nasal surgery; ss - Immunization history:: Adult Immunizations up to date. - Social history:: Smoking status: Patient/guardian denies using tobacco. - Ebola Screening: : Patient denies exposure to infectious person Patient denies travel to an Ebola-affected area in the 21 days before illness onset. Screenin:43 Abuse screen: Denies threats or abuse. Nutritional screening: No deficits noted. em Tuberculosis screening: No symptoms or risk factors identified. Fall Risk None identified. Assessment: 12:00 General: Appears uncomfortable, Behavior is calm, cooperative. Pain: Complains of pain aa5 in right lower quadrant Pain does not radiate. Pain currently is 7 out of 10 on a pain scale. Quality of pain is described as sharp, Pain began 2 weeks ago Is continuous. Neuro: Level of Consciousness is awake, alert, obeys commands, Oriented to person, place, time, situation. Cardiovascular: Heart tones S1 S2 present Rhythm is regular. Respiratory: Airway is patent Respiratory effort is even, unlabored, Respiratory pattern is regular, symmetrical, Breath sounds are clear bilaterally. GI: Abdomen is round non-distended, Bowel sounds present X 4 quads. Abd is soft X 4 quads Abdomen is tender to palpation in right lower quadrant Reports diarrhea, nausea, Patient currently denies vomiting. : No signs and/or symptoms were reported regarding the genitourinary system. EENT: No signs and/or symptoms were reported regarding the EENT system. Derm: Skin is pink, warm \T\ dry. Musculoskeletal: Range of motion: intact in all extremities. 13:00 Reassessment: Patient appears in no apparent distress at this time. Patient and/or em family updated on plan of care and expected duration. Pain level reassessed. Patient is alert, oriented x 3, equal unlabored respirations, skin warm/dry/pink. rates pain 5/10 Patient states feeling better. 14:23 Reassessment: Patient appears in no apparent distress at this time. Patient and/or em family updated on plan of care and expected duration. Pain level reassessed. Patient is alert, oriented x 3, equal unlabored respirations, skin warm/dry/pink. rates pain 4/10 Patient states feeling better. Vital Signs: 11:49 BP 161 / 103; Pulse 110; Resp 16; Temp 97.3(TE); Pulse Ox 99% ; Weight 113.4 kg; Height ss 5 ft. 10 in. (177.80 cm); Pain 7/10; 12:43 BP 135 / 89; Pulse 86; Resp 18; Pulse Ox 96% on R/A; Pain 7/10; em 13:00 BP 129 / 83; Pulse 78; Resp 18; Pulse Ox 100% on R/A; Pain 5/10; em 14:24 BP 116 / 90; Pulse 84; Resp 18; Pulse Ox 99% on R/A; Pain 4/10; em 11:49 Body Mass Index 35.87 (113.40 kg, 177.80 cm) ED Course: 11:36 Patient arrived in ED. mr 11:36 Cecilio Merida MD is Private Physician. mr 11:48 Triage completed. ss 11:49 Arm band placed on right wrist. ss 11:55 Florentino Georges PA is PHCP. [facility] 11:55 Bacilio Newton MD is Attending Physician. [facility] 12:00 Report given to Lavon Isbell LVN. aa5 12:05 Marzena Rust, RN is Primary Nurse. aa5 12:43 Patient has correct armband on for positive identification. Placed in gown. Bed in low em position. Call light in reach. 12:43 Initial lab(s) drawn, by me, sent to lab. Inserted saline lock: 20 gauge in right em antecubital area, using aseptic technique. Blood collected. 13:53 Pastor Marquez MD is Referral Physician. [facility] 14:22 No provider procedures requiring assistance completed. IV discontinued, intact, em bleeding controlled, No redness/swelling at site. Pressure dressing applied. Administered Medications: 12:28 CANCELLED (Physician Discretion): Lactated Ringers Solution 1000 ml IV at 1000 TKO aa5 continuous 12:44 Drug: Lactated Ringers Solution 1000 ml Route: IV; Rate: 1000 units/hr; Site: right em antecubital; 13:40 Follow up: IV Status: Completed infusion; IV Intake: 1000ml em 12:45 Drug: Zofran 4 mg Route: IVP; Site: right antecubital; ss 13:40 Follow up: Response: No adverse reaction em 12:45 Drug: fentaNYL (PF) 50 mcg Route: IVP; Site: right antecubital; ss 13:00 Follow up: Response: No adverse reaction; Pain is decreased em 13:52 Drug: fentaNYL (PF) 50 mcg Route: IVP; Site: right antecubital; em 14:20 Follow up: Response: No adverse reaction; Pain is decreased em Intake: 13:40 IV: 1000ml; Total: 1000ml. em Outcome: 13:54 Discharge ordered by MD. [facility] 14:22 Discharged to home ambulatory. em 14:22 Condition: good 14:22 Discharge instructions given to patient, Instructed on discharge instructions, follow up and referral plans. medication usage, Demonstrated understanding of instructions, follow-up care, medications, Prescriptions given X 3. 14:26 Patient left the ED. em Signatures: Florentino Georges PA PA jmm Rivera, Maria mr Isbell, Lavon, ACCOUNT ASSOCIATE ACCOUNT ASSOCIATE em Marzena Rust, RN RN aa5 Ursula Encinas RN RN ss Corrections: (The following items were deleted from the chart) 11:50 11:47 Initial Sepsis Screen: Does the patient meet any 2 criteria? No. Patient's ss initial sepsis screen is negative. Does the patient have a suspected source of infection? No. Patient's initial sepsis screen is negative. ss
[2018-07-12 14:47] LABS: Urine Blood NEGATIVE (NEG); Urine Glucose NEGATIVE (NEG); Urine Protein NEGATIVE (NEG); Urine Specific Gravity 1.015 (1.005-1.030); Urine pH 8.5 (5.0-7.0)
== END 2018-07-12 14:26 | disposition home or self-care (01) ==
LOC: ER 11:33
DX: K51.80 Other ulcerative colitis without complications (principal); Z88.5 Allergy status to narcotic agent
CPT/HCPCS: 36415; 80048; 80076; 81003; 83690; 85025; 96361; 96374; 96375; 99284; J2405; J3010

== ENCOUNTER 2018-09-20 10:19 | Emergency (ER) | payer BC ==
[2018-09-20] MEDS ORDERED: FENTANYL CITR 100 MCG/2 ML ONE (11:01)
[2018-09-20] MEDS ORDERED: ONDANSETRON 4 MG/2 ML VIAL ONE (11:01)
[2018-09-20] MEDS ORDERED: NA CHLORIDE 0.9% 1,000 ML ONE (11:01)
[2018-09-20 11:10] LABS: Absolute Lymphocytes (CBC) 1.7 K/uL (0.7-4.9); Absolute Monocytes 0.8 K/uL (0.1-1.3); Absolute Neutrophil 6.8 K/uL (1.8-8.0); Basophils % 0.4 % (0-1.3); Eosinophils % 0.2 % (0-4.4); Hematocrit 45.2 % (39.6-49.0); Lymphocytes % 18.3 % (15.3-44.8); MCH 31.3 pg (27.0-35.0); MCV 89.3 fL (80-100); Monocytes % 8.1 % (3.3-12.3); RBC Red Blood Cell Count 5.06 M/uL (4.33-5.43)
[2018-09-20 11:23] LABS: Albumin 4.4 g/dL (3.4-5.0); Bilirubin Direct 0.2 mg/dL (0-0.2); Bilirubin Total 0.7 mg/dL (0.2-1.0); Potassium 3.6 mmol/L (3.5-5.1); Protein, Total 8.4 g/dL (6.4-8.2)
--- NOTE | 2018-09-20 13:43 | ER ---
Nurse's Notes [facility] Name: Slava Biswas Age: 33 yrs Sex: Male : 1985 Arrival Date: 09/20/2018 Time: 10:22 Bed 8 Private MD: Cecilio Merida Diagnosis: Other ulcerative colitis Presentation: 09/20 10:33 Presenting complaint: Patient states: RLQ pain and nausea since this morning. Hx hb Colitis, GERD. Transition of care: patient was not received from another setting of care. Onset of symptoms was September 20, 2018. Risk Assessment: Do you want to hurt yourself or someone else? Patient reports no desire to harm self or others. Initial Sepsis Screen: Does the patient meet any 2 criteria? No. Patient's initial sepsis screen is negative. Does the patient have a suspected source of infection? No. Patient's initial sepsis screen is negative. Care prior to arrival: None. 10:33 Method Of Arrival: Ambulatory hb 10:33 Acuity: TRACEE 3 hb Historical: - Allergies: 10:34 Codeine (Hives, rash); hb - Home Meds: 10:34 Prilosec 40 mg Oral cpDR 1 cap 2 times per day [Active]; Probiotic Oral [Active]; hb - PMHx: 10:34 Colitis; GERD; hb - PSHx: 10:34 Hernia repair; Tonsillectomy; nasal surgery; hb - Immunization history:: Adult Immunizations up to date. - Social history:: Smoking status: Patient/guardian denies using tobacco. - Ebola Screening: : No symptoms or risks identified at this time. Screenin:36 Abuse screen: Denies threats or abuse. Denies injuries from another. Nutritional hb screening: No deficits noted. Tuberculosis screening: No symptoms or risk factors identified. Fall Risk None identified. Assessment: 10:36 General: Appears in no apparent distress. Behavior is calm, cooperative. Pain: Pain hb currently is 7 out of 10 on a pain scale. Neuro: Level of Consciousness is awake, alert, obeys commands, Oriented to person, place, time, situation. Cardiovascular: Heart tones S1 S2 present Capillary refill < 3 seconds Patient's skin is warm and dry. Respiratory: Airway is patent Respiratory effort is even, unlabored, Respiratory pattern is regular, symmetrical, Breath sounds are clear bilaterally. GI: Abdomen is non-distended, Bowel sounds present X 4 quads. Abd is soft and non tender X 4 quads. Reports lower abdominal pain, nausea. : No signs and/or symptoms were reported regarding the genitourinary system. EENT: No signs and/or symptoms were reported regarding the EENT system. Derm: Skin is intact, is healthy with good turgor, Skin is pink, warm \T\ dry. Musculoskeletal: No signs and/or symptoms reported regarding the musculoskeletal system. 11:15 Pain: Pain currently is 4 out of 10 on a pain scale. jl7 11:39 Reassessment: Patient and/or family updated on plan of care and expected duration. Pain jl7 level reassessed. Patient is alert, oriented x 3, equal unlabored respirations, skin warm/dry/pink. Pain: Pain currently is 7 out of 10 on a pain scale. 12:30 Reassessment: Patient appears in no apparent distress at this time. No changes from jl7 previously documented assessment. Patient and/or family updated on plan of care and expected duration. Pain level reassessed. Patient is alert, oriented x 3, equal unlabored respirations, skin warm/dry/pink. 13:30 Reassessment: Patient appears in no apparent distress at this time. Patient and/or jl7 family updated on plan of care and expected duration. Pain level reassessed. Patient is alert, oriented x 3, equal unlabored respirations, skin warm/dry/pink. Patient states feeling better. Patient states symptoms have improved. Vital Signs: 10:33 BP 152 / 93; Pulse 98; Resp 16; Temp 98.8(O); Pulse Ox 100% on R/A; Pain 7/10; hb 11:38 BP 126 / 84; Pulse 75; Resp 16 S; Pulse Ox 97% on R/A; jl7 12:45 BP 131 / 88; Pulse 66; Resp 16 S; Pulse Ox 100% on R/A; Pain 7/10; jl7 13:45 BP 129 / 88; Pulse 98; Resp 16 S; Pulse Ox 100% on R/A; Pain 3/10; jl7 ED Course: 10:22 Patient arrived in ED. mr 10:22 Cecilio Merida MD is Private Physician. mr 10:34 Triage completed. hb 10:36 Luc Portillo NP is PHCP. pm1 10:36 Sinan Cole MD is Attending Physician. pm1 10:36 Arm band placed on right wrist. hb 10:38 Patient has correct armband on for positive identification. Placed in gown. Bed in low hb position. Call light in reach. Side rails up X 1. 10:49 Brittny Zepeda RN is Primary Nurse. jl7 10:49 Initial lab(s) drawn, by ne, sent to lab. Inserted saline lock: 20 gauge in right 5 antecubital area, using aseptic technique. Blood collected. 11:01 Basic Metabolic Panel Sent. mh5 11:01 CBC with Diff Sent. mh5 11:01 Hepatic Function Sent. mh5 11:01 Lipase Sent. mh5 11:19 Pulse ox on. NIBP on. 5 13:56 No provider procedures requiring assistance completed. IV discontinued, intact, jl7 bleeding controlled, No redness/swelling at site. Pressure dressing applied. Administered Medications: 10:57 Drug: Zofran 4 mg Route: IVP; Site: right antecubital; jl7 11:15 Follow up: Response: No adverse reaction; Nausea is decreased jl7 10:59 Drug: NS 0.9% 1000 ml Route: IV; Rate: 1000 ml; Site: right antecubital; jl7 12:15 Follow up: IV Status: Completed infusion jl7 11:00 Drug: fentaNYL (PF) 50 mcg Route: IVP; Site: right antecubital; jl7 11:15 Follow up: Response: No adverse reaction; Pain is decreased jl7 12:55 Drug: fentaNYL (PF) 50 mcg Route: IVP; Site: right antecubital; jl7 13:16 Follow up: Response: No adverse reaction; Pain is decreased jl7 Outcome: 13:42 Discharge ordered by MD. pm1 13:56 Discharged to home ambulatory. jl7 13:56 Condition: stable 13:56 Discharge instructions given to patient, Instructed on discharge instructions, follow up and referral plans. medication usage, Demonstrated understanding of instructions, follow-up care, medications, Prescriptions given X 3. 13:56 Patient left the ED. jl7 Signatures: Mary Carmen Eller mr PortilloLuc, METAL ROLLING MILL OPERATOR METAL ROLLING MILL OPERATOR pm1 Esther Nice RN RN Josseline [facility] Brittny Zepeda RN RN jl7 Corrections: (The following items were deleted from the chart) 11:41 11:00 Pain: Pain currently is 4 out of 10 on a pain scale. jl7 jl7
--- NOTE | 2018-09-20 13:43 | EDPHYS ---
Physician Documentation [facility] Name: Slava Biswas Age: 33 yrs Sex: Male : 1985 Arrival Date: 09/20/2018 Time: 10:22 Bed 8 Private MD: Cecilio Merida ED Physician Sinan Cole HPI: 09/20 10:52 This 33 yrs old Male presents to ER via Ambulatory with complaints of pm1 Abdominal Pain. 10:52 The patient presents with abdominal pain right lower quadrant. Onset: The pm1 symptoms/episode began/occurred this morning. The symptoms do not radiate. Associated signs and symptoms: Pertinent positives: diarrhea, nausea, some trace amount of blood in his mucous diarrhea, not with every episode of diarrhea. Has had 8 since onset. Onset at 0400 this AM, Pertinent negatives: chest pain, dysuria, fever, shortness of breath, vomiting. The symptoms are described as crampy. Modifying factors: The symptoms are alleviated by nothing, the symptoms are aggravated by nothing. The patient has experienced similar episodes in the past, multiple times, chronically, and the symptoms today are exactly the same, to previous ulcerative colitis flare ups. Patient presents to ER with complaints of ulcerative colitis flare up. Patient last flare up about 3 months ago and it feels the same as his prior UC flare ups. His ulcerative colitis flare ups always have pain present in RLQ with diarrhea. Patient reports some of his diarrhea episodes had trace amounts of blood. onset of symptoms at 0400 today. Has had 8 episodes of diarrhea. Has some nausea. No vomiting.. Historical: - Allergies: 10:34 Codeine (Hives, rash); hb - Home Meds: 10:34 Prilosec 40 mg Oral cpDR 1 cap 2 times per day [Active]; Probiotic Oral [Active]; hb - PMHx: 10:34 Colitis; GERD; hb - PSHx: 10:34 Hernia repair; Tonsillectomy; nasal surgery; hb - Immunization history:: Adult Immunizations up to date. - Social history:: Smoking status: Patient/guardian denies using tobacco. - Ebola Screening: : No symptoms or risks identified at this time. ROS: 10:52 Constitutional: Negative for fever, chills, and weight loss, Eyes: Negative for injury, pm1 pain, redness, and discharge, ENT: Negative for injury, pain, and discharge, Neck: Negative for injury, pain, and swelling, Cardiovascular: Negative for chest pain, palpitations, and edema, Respiratory: Negative for shortness of breath, cough, wheezing, and pleuritic chest pain. 10:52 Back: Negative for injury and pain, : Negative for injury, bleeding, discharge, and swelling, MS/Extremity: Negative for injury and deformity, Skin: Negative for injury, rash, and discoloration, Neuro: Negative for headache, weakness, numbness, tingling, and seizure. 10:52 Abdomen/GI: Positive for abdominal pain, nausea, diarrhea, of the right lower quadrant, Negative for vomiting, black/tarry stool. Exam: 10:52 Constitutional: This is a well developed, well nourished patient who is awake, alert, pm1 and in no acute distress. Head/Face: Normocephalic, atraumatic. Eyes: Pupils equal round and reactive to light, extra-ocular motions intact. Lids and lashes normal. Conjunctiva and sclera are non-icteric and not injected. Cornea within normal limits. Periorbital areas with no swelling, redness, or edema. ENT: Nares patent. No nasal discharge, no septal abnormalities noted. Tympanic membranes are normal and external auditory canals are clear. Oropharynx with no redness, swelling, or masses, exudates, or evidence of obstruction, uvula midline. Mucous membranes moist. Neck: Trachea midline, no thyromegaly or masses palpated, and no cervical lymphadenopathy. Supple, full range of motion without nuchal rigidity, or vertebral point tenderness. No Meningismus. Chest/axilla: Normal chest wall appearance and motion. Nontender with no deformity. No lesions are appreciated. Cardiovascular: Regular rate and rhythm with a normal S1 and S2. No gallops, murmurs, or rubs. Normal PMI, no JVD. No pulse deficits. Respiratory: Lungs have equal breath sounds bilaterally, clear to auscultation and percussion. No rales, rhonchi or wheezes noted. No increased work of breathing, no retractions or nasal flaring. 10:52 Back: No spinal tenderness. No costovertebral tenderness. Full range of motion. Skin: Warm, dry with normal turgor. Normal color with no rashes, no lesions, and no evidence of cellulitis. MS/ Extremity: Pulses equal, no cyanosis. Neurovascular intact. Full, normal range of motion. 10:52 Abdomen/GI: Inspection: abdomen appears normal, Bowel sounds: normal, Palpation: abdomen is soft and non-tender, in all quadrants, mass, is not appreciated, rebound tenderness, is not appreciated, Indicators: McBurney's point is not tender, Titus's sign is negative, Rovsing's sign is negative, Obturator sign is negative, Psoas sign is negative. 10:52 Neuro: Orientation: is normal, Motor: is normal, moves all fours, Sensation: is normal, no obvious gross deficits, Gait: is steady, at a normal pace, without difficulty. Vital Signs: 10:33 BP 152 / 93; Pulse 98; Resp 16; Temp 98.8(O); Pulse Ox 100% on R/A; Pain 7/10; hb 11:38 BP 126 / 84; Pulse 75; Resp 16 S; Pulse Ox 97% on R/A; jl7 12:45 BP 131 / 88; Pulse 66; Resp 16 S; Pulse Ox 100% on R/A; Pain 7/10; jl7 13:45 BP 129 / 88; Pulse 98; Resp 16 S; Pulse Ox 100% on R/A; Pain 3/10; jl7 MDM: 10:38 Patient medically screened. pm1 12:22 Data reviewed: vital signs. Data interpreted: Pulse oximetry: on room air is 97 %. pm1 Interpretation: normal. 13:42 Counseling: I had a detailed discussion with the patient and/or guardian regarding: the pm1 historical points, exam findings, and any diagnostic results supporting the discharge/admit diagnosis, lab results, the need for outpatient follow up, to return to the emergency department if symptoms worsen or persist or if there are any questions or concerns that arise at home. 13:42 ED course: Patient presenting with a flare up of his ulcerative colitis. Symptoms of pm1 his flare up include RLQ with diarrhea. Patient without any abdominal tenderness on reexamination. Offered the patient CT scan but he refused. Instructed on return precautions for appendicitis given and he understands. 09/20 10:46 Order name: Basic Metabolic Panel; Complete Time: 11:32 pm1 09/20 10:46 Order name: CBC with Diff; Complete Time: 11:13 pm1 09/20 10:46 Order name: Hepatic Function; Complete Time: 11:32 pm1 09/20 10:46 Order name: Lipase; Complete Time: 11:32 pm1 09/20 10:46 Order name: IV Saline Lock; Complete Time: 11:00 pm1 09/20 10:46 Order name: Labs collected and sent; Complete Time: 11:00 pm1 Administered Medications: 10:57 Drug: Zofran 4 mg Route: IVP; Site: right antecubital; jl7 11:15 Follow up: Response: No adverse reaction; Nausea is decreased jl7 10:59 Drug: NS 0.9% 1000 ml Route: IV; Rate: 1000 ml; Site: right antecubital; jl7 12:15 Follow up: IV Status: Completed infusion jl7 11:00 Drug: fentaNYL (PF) 50 mcg Route: IVP; Site: right antecubital; jl7 11:15 Follow up: Response: No adverse reaction; Pain is decreased jl7 12:55 Drug: fentaNYL (PF) 50 mcg Route: IVP; Site: right antecubital; jl7 13:16 Follow up: Response: No adverse reaction; Pain is decreased jl7 Disposition: 18:14 Co-signature as Attending Physician, Sinan Cole MD I agree with the assessment and kdr plan of care. Disposition: 09/20/18 13:42 Discharged to Home. Impression: Other ulcerative colitis. - Condition is Stable. - Discharge Instructions: Ulcerative Colitis, Adult. - Prescriptions for Flagyl 500 mg Oral Tablet - take 1 tablet by ORAL route every 8 hours for 10 days; 30 tablet. Cipro 500 mg Oral Tablet - take 1 tablet by ORAL route every 12 hours for 7 days; 14 tablet. Tramadol 50 mg Oral Tablet - take 1 tablet by ORAL route every 8 hours As needed as needed; 20 tablet. - Medication Reconciliation Form, Thank You Letter, Antibiotic Education, Prescription Opioid Use form. - Work release form (09/20/18 15:51). iw - Follow up: Emergency Department; When: As needed; Reason: Worsening of condition. Follow up: Private Physician; When: 2 - 3 days; Reason: Recheck today's complaints, Continuance of care, Re-evaluation by your physician. - Problem is new. - Symptoms have improved. Signatures: Dispatcher [employer] Sinan Rogers MD MD kdr Marinas, Luc, FLOAT NURSE FLOAT NURSE pm1 Esther Nice, RN RN Brittny Zepeda RN RN jl7 Jolene Ware RN Corrections: (The following items were deleted from the chart) 13:56 13:42 09/20/2018 13:42 Discharged to Home. Impression: Other ulcerative colitis. jl7 Condition is Stable. Discharge Instructions: Ulcerative Colitis, Adult. Prescriptions for Flagyl 500 mg Oral Tablet - take 1 tablet by ORAL route every 8 hours for 10 days; 30 tablet, Cipro 500 mg Oral Tablet - take 1 tablet by ORAL route every 12 hours for 7 days; 14 tablet, Tramadol 50 mg Oral Tablet - take 1 tablet by ORAL route every 8 hours As needed as needed; 20 tablet. and Forms are Medication Reconciliation Form, Thank You Letter, Antibiotic Education, Prescription Opioid Use. Follow up: Emergency Department; When: As needed; Reason: Worsening of condition. Follow up: Private Physician; When: 2 - 3 days; Reason: Recheck today's complaints, Continuance of care, Re-evaluation by your physician. Problem is new. Symptoms have improved. pm1
== END 2018-09-20 13:56 | disposition home or self-care (01) ==
LOC: ER 10:19
DX: K51.80 Other ulcerative colitis without complications (principal); K21.9 Gastro-esophageal reflux disease without esophagitis; Z79.899 Other long term (current) drug therapy
CPT/HCPCS: 36415; 80048; 80076; 83690; 85025; 96361; 96374; 96375; 99284; J2405; J3010; J7030

== ENCOUNTER 2018-10-08 15:45 | Emergency (ER) | payer BC ==
--- OUTSIDE RECORDS SUMMARY | 2018-10-08 15:47 | XMS REPORT ---
:1985 [facility] Address [facility] [address] [facility] [address] [place] [id number] Care Team Providers Name Role Phone Unavailable Unavailable Unavailable Problems This patient has no known problems. Allergies, Adverse Reactions, Alerts This patient has no known allergies or adverse reactions. Medications This patient has no known medications.
[2018-10-08 17:07] LABS: Absolute Lymphocytes (CBC) 1.9 K/uL (0.7-4.9); Absolute Monocytes 0.7 K/uL (0.1-1.3); Absolute Neutrophil 7.2 K/uL (1.8-8.0); Basophils % 0.7 % (0-1.3); Eosinophils % 0.4 % (0-4.4); Hematocrit 49.3 % (39.6-49.0); Lymphocytes % 19.1 % (15.3-44.8); MPV 8.8 fL (7.6-11.3); Monocytes % 7.2 % (3.3-12.3); RBC Red Blood Cell Count 5.52 M/uL (4.33-5.43)
[2018-10-08] MEDS ORDERED: NA CHLORIDE 0.9% 1,000 ML ONE (17:09)
[2018-10-08] MEDS ORDERED: ONDANSETRON 4 MG/2 ML VIAL ONE (17:09)
[2018-10-08] MEDS ORDERED: FENTANYL CITR 100 MCG/2 ML ONE (17:09)
[2018-10-08 17:22] LABS: Albumin 4.7 g/dL (3.4-5.0); Bilirubin Direct 0.2 mg/dL (0-0.2); Bilirubin Total 0.4 mg/dL (0.2-1.0); Protein, Total 9.2 g/dL (6.4-8.2)
--- NOTE | 2018-10-08 19:46 | EDPHYS ---
Physician Documentation [facility] Name: Slava Biswas Age: 33 yrs Sex: Male : 1985 Arrival Date: 10/08/2018 Time: 15:52 Bed 26 Private MD: Cecilio Merida ED Physician Mary Ervin HPI: 10/08 17:00 This 33 yrs old Male presents to ER via Ambulatory with complaints of pm1 Abdominal Pain. 17:00 The patient presents with abdominal pain right lower quadrant. Onset: The pm1 symptoms/episode began/occurred this morning. The symptoms do not radiate. Associated signs and symptoms: Pertinent positives: Diarrhea x 7 and vomiting x 1, Pertinent negatives: chest pain, dysuria, fever, shortness of breath. The symptoms are described as crampy. Modifying factors: The symptoms are alleviated by nothing, the symptoms are aggravated by nothing. Severity of pain: in the emergency department the pain is actually worse. The patient has experienced similar episodes in the past, multiple times. The patient has not recently seen a physician. Presenting with his typical flare up of ulcerative colitis, RLQ pain with diarrhea. Patient ate a dish with some chest nuts that is new for him and that he believes is the trigger for his ulcerative colitis. Historical: - Allergies: 16:13 Codeine (Hives, rash); aj - Home Meds: 16:13 Prilosec 40 mg Oral cpDR 1 cap 2 times per day [Active]; Probiotic Oral [Active]; aj - PMHx: 16:13 Colitis; GERD; aj - PSHx: 16:13 Hernia repair; Tonsillectomy; nasal surgery; aj - Immunization history:: Adult Immunizations up to date. - Social history:: Smoking status: unknown. - Ebola Screening: : Patient negative for fever greater than or equal to 101.5 degrees Fahrenheit, and additional compatible Ebola Virus Disease symptoms Patient denies exposure to infectious person Patient denies travel to an Ebola-affected area in the 21 days before illness onset. ROS: 17:00 Constitutional: Negative for fever, chills, and weight loss, Eyes: Negative for injury, pm1 pain, redness, and discharge, ENT: Negative for injury, pain, and discharge, Neck: Negative for injury, pain, and swelling, Cardiovascular: Negative for chest pain, palpitations, and edema, Respiratory: Negative for shortness of breath, cough, wheezing, and pleuritic chest pain. 17:00 Back: Negative for injury and pain, : Negative for injury, bleeding, discharge, and swelling, MS/Extremity: Negative for injury and deformity, Skin: Negative for injury, rash, and discoloration, Neuro: Negative for headache, weakness, numbness, tingling, and seizure. 17:00 Abdomen/GI: Positive for abdominal pain, nausea, vomiting, and diarrhea. Exam: 17:00 Constitutional: This is a well developed, well nourished patient who is awake, alert, pm1 and in no acute distress. Head/Face: Normocephalic, atraumatic. Eyes: Pupils equal round and reactive to light, extra-ocular motions intact. Lids and lashes normal. Conjunctiva and sclera are non-icteric and not injected. Cornea within normal limits. Periorbital areas with no swelling, redness, or edema. ENT: Nares patent. No nasal discharge, no septal abnormalities noted. Tympanic membranes are normal and external auditory canals are clear. Oropharynx with no redness, swelling, or masses, exudates, or evidence of obstruction, uvula midline. Mucous membranes moist. Neck: Trachea midline, no thyromegaly or masses palpated, and no cervical lymphadenopathy. Supple, full range of motion without nuchal rigidity, or vertebral point tenderness. No Meningismus. Chest/axilla: Normal chest wall appearance and motion. Nontender with no deformity. No lesions are appreciated. Cardiovascular: Regular rate and rhythm with a normal S1 and S2. No gallops, murmurs, or rubs. Normal PMI, no JVD. No pulse deficits. Respiratory: Lungs have equal breath sounds bilaterally, clear to auscultation and percussion. No rales, rhonchi or wheezes noted. No increased work of breathing, no retractions or nasal flaring. Abdomen/GI: Soft, non-tender, with normal bowel sounds. No distension or tympany. No guarding or rebound. No evidence of tenderness throughout. Back: No spinal tenderness. No costovertebral tenderness. Full range of motion. Skin: Warm, dry with normal turgor. Normal color with no rashes, no lesions, and no evidence of cellulitis. MS/ Extremity: Pulses equal, no cyanosis. Neurovascular intact. Full, normal range of motion. 17:00 Neuro: Orientation: is normal, Motor: is normal, moves all fours. Vital Signs: 16:13 BP 145 / 92; Pulse 84; Resp 18; Temp 97.3; Pulse Ox 100% on R/A; Weight 104.33 kg; aj Height 5 ft. 10 in. (177.80 cm); 18:19 BP 135 / 82; Pulse 78; Resp 18; Pulse Ox 100% ; tl3 19:57 BP 135 / 88; Pulse 64 MON; Resp 16 S; Pulse Ox 99% on R/A; rv 16:13 Body Mass Index 33.00 (104.33 kg, 177.80 cm) aj MDM: 16:48 Patient medically screened. pm1 19:43 Data reviewed: vital signs. Data interpreted: Pulse oximetry: on room air is 100 %. pm1 Interpretation: normal. Counseling: I had a detailed discussion with the patient and/or guardian regarding: the historical points, exam findings, and any diagnostic results supporting the discharge/admit diagnosis, lab results, the need for outpatient follow up, to return to the emergency department if symptoms worsen or persist or if there are any questions or concerns that arise at home. 19:43 Special discussion: Based on the patient's Hx, exam, and Dx evaluation, there is no pm1 indication for emergent surgery or inpatient Tx. It is understood by the patient/guardian that if the Sx's persist or worsen they need to return immediately for re-evaluation. 19:43 Special discussion: I discussed with the patient/guardian in detail that at this point pm1 there is no indication for admission to the hospital. It is understood, however, that if the symptoms persist or worsen the patient needs to return immediately for re-evaluation. 19:43 ED course: Patient non compliant with dietary triggers for his ulcerative colitis. When pm1 patient has flare ups of his ulcerative colitis he reports RLQ pain with diarrhea. Patient without any tenderness to abdomen. Offered CT scan of abdomen but patient refused since it feels like his typical ulcerative colitis flare ups. Patient educated return precautions for appendicitis . 10/08 16:53 Order name: Basic Metabolic Panel pm1 10/08 16:53 Order name: CBC with Diff; Complete Time: 19:30 pm1 10/08 16:53 Order name: Hepatic Function pm1 10/08 16:53 Order name: Lipase pm1 10/08 16:54 Order name: Basic Metabolic Panel; Complete Time: 19:30 EDMS 10/08 16:54 Order name: Liver (Hepatic) Function; Complete Time: 19:30 EDMS 10/08 16:54 Order name: Lipase; Complete Time: 19:30 EDMS 10/08 16:53 Order name: IV Saline Lock; Complete Time: 19:08 pm1 10/08 16:53 Order name: Labs collected and sent; Complete Time: 19:08 pm1 Administered Medications: 17:04 Drug: Zofran 4 mg Route: IVP; Site: right antecubital; rv 18:18 Follow up: Response: No adverse reaction tl3 17:04 Drug: fentaNYL (PF) 50 mcg Route: IVP; Site: right antecubital; rv 18:18 Follow up: Response: No adverse reaction; Pain is decreased tl3 17:05 Drug: NS 0.9% 1000 ml Route: IV; Rate: 1000 ml; Site: right antecubital; rv 18:18 Follow up: IV Status: Completed infusion; IV Intake: 1000ml tl3 18:18 Drug: fentaNYL (PF) 50 mcg Route: IVP; Site: right forearm; tl3 19:58 Follow up: Response: Pain is decreased rv 19:43 CANCELLED (change to Tramadol): [place] 10 mg-325 mg 1 tabs PO once pm1 19:57 Drug: Flagyl 500 mg Route: PO; rv 19:58 Follow up: Response: Medication administered at discharge. rv 19:58 Drug: traMADol 50 mg Route: PO; rv 19:58 Follow up: Response: Medication administered at discharge. rv 19:58 Drug: Cipro 500 mg Route: PO; rv 19:58 Follow up: Response: Medication administered at discharge. rv Disposition: 10/08/18 19:45 Discharged to Home. Impression: Other ulcerative colitis. - Condition is Stable. - Discharge Instructions: Ulcerative Colitis, Adult. - Prescriptions for Flagyl 500 mg Oral Tablet - take 1 tablet by ORAL route every 8 hours for 10 days; 30 tablet. Cipro 500 mg Oral Tablet - take 1 tablet by ORAL route every 12 hours for 10 days; 20 tablet. Tramadol 50 mg Oral Tablet - take 1 tablet by ORAL route every 8 hours as needed; 20 tablet. - Medication Reconciliation Form, Thank You Letter, Antibiotic Education, Prescription Opioid Use form. - Follow up: Emergency Department; When: As needed; Reason: Worsening of condition. Follow up: Private Physician; When: 2 - 3 days; Reason: Recheck today's complaints, Continuance of care, Re-evaluation by your physician. - Problem is new. - Symptoms have improved. Addendum: 10/12/2018 15:23 Co-signature as Attending Physician, Mary Ervin MD. m a2 Signatures: Dispatcher [employer] EDMS Bernie Don, RN RN Luc Murillo NP CALIBRATION ENGINEER pm1 Mary Ervin MD MD ma2 Zoila Akbar, RN RN tl3 Aiden Lipscomb RN RN rv Corrections: (The following items were deleted from the chart) 10/08 19:43 19:42 Norwood 10 mg-325 mg 1 tabs PO once ordered. pm1 pm1 20:00 19:45 10/08/2018 19:45 Discharged to Home. Impression: Other ulcerative colitis. rv Condition is Stable. Forms are Medication Reconciliation Form, Thank You Letter, Antibiotic Education, Prescription Opioid Use. Follow up: Emergency Department; When: As needed; Reason: Worsening of condition. Follow up: Private Physician; When: 2 - 3 days; Reason: Recheck today's complaints, Continuance of care, Re-evaluation by your physician. Problem is new. Symptoms have improved. pm1
--- NOTE | 2018-10-08 19:46 | ER ---
Nurse's Notes [facility] Name: Slava Biswas Age: 33 yrs Sex: Male : 1985 Arrival Date: 10/08/2018 Time: 15:52 Bed 26 Private MD: Cecilio Merida Diagnosis: Other ulcerative colitis Presentation: 10/08 16:11 Presenting complaint: Patient states: Lower abdominal pain with diarrhea that started aj this AM. Patient reports that he believes this is a flare of his ulcerative colitis. Reports eating foods that were not compliant with his diet last night. Transition of care: patient was not received from another setting of care. Onset of symptoms was October 08, 2018. Risk Assessment: Do you want to hurt yourself or someone else? Patient reports no desire to harm self or others. Initial Sepsis Screen: Does the patient meet any 2 criteria? No. Patient's initial sepsis screen is negative. Does the patient have a suspected source of infection? No. Patient's initial sepsis screen is negative. Care prior to arrival: None. 16:11 Method Of Arrival: Ambulatory 16:11 Acuity: TRACEE 3 aj Triage Assessment: 16:13 General: Appears in no apparent distress. comfortable, Behavior is calm, cooperative, aj appropriate for age. Pain: Complains of pain in right lower quadrant and left lower quadrant. Neuro: Level of Consciousness is awake, alert, obeys commands, Oriented to person, place, time, situation, Appropriate for age. Respiratory: Airway is patent Respiratory effort is even, unlabored, Respiratory pattern is regular, symmetrical. GI: Reports lower abdominal pain, diarrhea. Derm: Skin is intact, is healthy with good turgor, Skin is pink, warm \T\ dry. normal. Historical: - Allergies: 16:13 Codeine (Hives, rash); aj - Home Meds: 16:13 Prilosec 40 mg Oral cpDR 1 cap 2 times per day [Active]; Probiotic Oral [Active]; aj - PMHx: 16:13 Colitis; GERD; aj - PSHx: 16:13 Hernia repair; Tonsillectomy; nasal surgery; aj - Immunization history:: Adult Immunizations up to date. - Social history:: Smoking status: unknown. - Ebola Screening: : Patient negative for fever greater than or equal to 101.5 degrees Fahrenheit, and additional compatible Ebola Virus Disease symptoms Patient denies exposure to infectious person Patient denies travel to an Ebola-affected area in the 21 days before illness onset. Screenin:02 Abuse screen: Denies threats or abuse. Nutritional screening: No deficits noted. tl3 Tuberculosis screening: No symptoms or risk factors identified. Fall Risk None identified. Assessment: 17:02 General: Appears uncomfortable, obese, well groomed, well developed, well nourished, tl3 Behavior is calm, cooperative, appropriate for age. Pain: Complains of pain in abdomen and left lower quadrant and right lower quadrant. 18:19 Reassessment: No changes from previously documented assessment. Patient and/or family tl3 updated on plan of care and expected duration. Pain level reassessed. Patient is alert, oriented x 3, equal unlabored respirations, skin warm/dry/pink. pain starting to return. 19:59 GI: Bowel sounds present X 4 quads. Abd is soft and non tender X 4 quads. rv Vital Signs: 16:13 BP 145 / 92; Pulse 84; Resp 18; Temp 97.3; Pulse Ox 100% on R/A; Weight 104.33 kg; aj Height 5 ft. 10 in. (177.80 cm); 18:19 BP 135 / 82; Pulse 78; Resp 18; Pulse Ox 100% ; tl3 19:57 BP 135 / 88; Pulse 64 MON; Resp 16 S; Pulse Ox 99% on R/A; rv 16:13 Body Mass Index 33.00 (104.33 kg, 177.80 cm) aj ED Course: 15:52 Patient arrived in ED. mr 15:53 Cecilio Merida MD is Private Physician. mr 16:12 Triage completed. aj 16:13 Arm band placed on left wrist. Patient placed in waiting room, Patient notified of wait aj time. 16:47 Luc Portillo, FARRAH is PHCP. pm1 16:47 Mary Ervin MD is Attending Physician. pm1 16:48 Zoila Akbar, HARSHA is Primary Nurse. tl3 17:02 Patient has correct armband on for positive identification. Bed in low position. Call tl3 light in reach. Side rails up X 1. Pulse ox on. NIBP on. Warm blanket given. 17:02 No provider procedures requiring assistance completed. Initial lab(s) drawn, by me, tl3 sent to lab. Inserted saline lock: 20 gauge in right antecubital area, using aseptic technique. Blood collected. 19:59 Basic Metabolic Panel Sent. rv 19:59 Hepatic Function Sent. rv 19:59 Lipase Sent. rv 19:59 IV discontinued, bleeding controlled, No redness/swelling at site. Pressure dressing rv applied. Administered Medications: 17:04 Drug: Zofran 4 mg Route: IVP; Site: right antecubital; rv 18:18 Follow up: Response: No adverse reaction tl3 17:04 Drug: fentaNYL (PF) 50 mcg Route: IVP; Site: right antecubital; rv 18:18 Follow up: Response: No adverse reaction; Pain is decreased tl3 17:05 Drug: NS 0.9% 1000 ml Route: IV; Rate: 1000 ml; Site: right antecubital; rv 18:18 Follow up: IV Status: Completed infusion; IV Intake: 1000ml tl3 18:18 Drug: fentaNYL (PF) 50 mcg Route: IVP; Site: right forearm; tl3 19:58 Follow up: Response: Pain is decreased rv 19:43 CANCELLED (change to Tramadol): [place]bent 10 mg-325 mg 1 tabs PO once pm1 19:57 Drug: Flagyl 500 mg Route: PO; rv 19:58 Follow up: Response: Medication administered at discharge. rv 19:58 Drug: traMADol 50 mg Route: PO; rv 19:58 Follow up: Response: Medication administered at discharge. rv 19:58 Drug: Cipro 500 mg Route: PO; rv 19:58 Follow up: Response: Medication administered at discharge. rv Intake: 18:18 IV: 1000ml; Total: 1000ml. tl3 Outcome: 19:45 Discharge ordered by MD. pm1 19:59 Discharged to home ambulatory. rv 19:59 Condition: good 19:59 Discharge instructions given to patient, Instructed on discharge instructions, follow up and referral plans. medication usage, Demonstrated understanding of instructions, follow-up care, medications, Prescriptions given X 3. 20:00 Patient left the ED. rv Signatures: Bernie Don RN Mary Carmen Moore mr Portillo Luc, GLOVE FINISHER GLOVE FINISHER pm1 Zoila Akbar RN RN tl3 Aiden Lipscomb RN RN rv
[2018-10-08] MEDS ORDERED: TRAMADOL HCL 50 MG TAB ONE (20:00)
[2018-10-08] MEDS ORDERED: CIPROFLOXACIN HCL 500 MG TAB ONE (20:00)
[2018-10-08] MEDS ORDERED: metroNIDAZOLE 500 MG TABLET ONE (20:00)
== END 2018-10-08 20:00 | disposition home or self-care (01) ==
LOC: ER 15:45
DX: K51.80 Other ulcerative colitis without complications (principal); K21.9 Gastro-esophageal reflux disease without esophagitis; Z88.5 Allergy status to narcotic agent
CPT/HCPCS: 36415; 80048; 80076; 83690; 85025; 99284; J2405; J3010; J7030

== ENCOUNTER 2018-11-10 09:54 | Emergency (ER) | payer BC ==
--- OUTSIDE RECORDS SUMMARY | 2018-11-10 09:55 | XMS REPORT ---
:1985 [facility] [address] [facility] [address] [place] [id number] Care Team Providers Name Role Phone Unavailable Unavailable Unavailable Problems This patient has no known problems. Allergies, Adverse Reactions, Alerts This patient has no known allergies or adverse reactions. Medications This patient has no known medications.
[2018-11-10 10:28] LABS: Absolute Lymphocytes (CBC) 1.7 K/uL (0.7-4.9); Absolute Monocytes 0.7 K/uL (0.1-1.3); Absolute Neutrophil 6.7 K/uL (1.8-8.0); Basophils % 0.5 % (0-1.3); Eosinophils % 0.7 % (0-4.4); Hematocrit 46.2 % (39.6-49.0); Lymphocytes % 18.2 % (15.3-44.8); MPV 8.2 fL (7.6-11.3); Monocytes % 7.4 % (3.3-12.3); RBC Red Blood Cell Count 5.07 M/uL (4.33-5.43)
[2018-11-10] MEDS ORDERED: ONDANSETRON 4 MG/2 ML VIAL ONE (10:31)
[2018-11-10] MEDS ORDERED: MORPHINE 4 MG/ML SYR ONE (10:31)
[2018-11-10] MEDS ORDERED: NA CHLORIDE 0.9% 1,000 ML ONE (10:31)
[2018-11-10 10:44] LABS: Albumin 3.7 g/dL (3.4-5.0); Bilirubin Direct 0.1 mg/dL (0-0.2); Bilirubin Total 0.4 mg/dL (0.2-1.0); Potassium 3.8 mmol/L (3.5-5.1); Protein, Total 7.6 g/dL (6.4-8.2)
--- NOTE | 2018-11-10 11:11 | ER ---
Nurse's Notes [facility] Name: Slava Biswas Age: 33 yrs Sex: Male : 1985 Arrival Date: 11/10/2018 Time: 09:56 Bed 13 Private MD: Cecilio Merida Diagnosis: Unspecified abdominal pain;Diarrhea, unspecified Presentation: 11/10 10:03 Presenting complaint: Patient states: Woke up between 3:00 -4:00 this morning with a rb1 flare up of Ulcerative Colitis. Has diarrhea and has gone five times already. Transition of care: patient was not received from another setting of care. Onset of symptoms was November 10, 2018 at 03:00. Risk Assessment: Do you want to hurt yourself or someone else? Patient reports no desire to harm self or others. Initial Sepsis Screen: Does the patient meet any 2 criteria? No. Patient's initial sepsis screen is negative. Does the patient have a suspected source of infection? No. Patient's initial sepsis screen is negative. Care prior to arrival: Medication(s) given: Prilosec. 10:03 Method Of Arrival: Ambulatory rb1 10:03 Acuity: TRACEE 3 rb1 Triage Assessment: 10:03 General: Appears in no apparent distress. comfortable, Behavior is calm, cooperative, rb1 Denies fever. Pain: Complains of pain in right lower quadrant Pain currently is 7 out of 10 on a pain scale. Neuro: Level of Consciousness is awake, alert, obeys commands, Oriented to person, place, time, situation. Cardiovascular: Capillary refill < 3 seconds is brisk in bilateral fingers. Respiratory: Airway is patent Respiratory effort is even, unlabored, Respiratory pattern is regular, symmetrical. GI: Reports diarrhea, since 0300 this morning. Has gone five times. : No signs and/or symptoms were reported regarding the genitourinary system. Derm: Skin is pink, warm \T\ dry. Historical: - Allergies: 10:03 Codeine (Hives, rash); rb1 10:03 Tylenol-Codeine #3; rb1 - Home Meds: 10:03 Prilosec 40 mg Oral cpDR 1 cap 2 times per day [Active]; Probiotic Oral [Active]; rb1 - PMHx: 10:03 Colitis; GERD; rb1 - PSHx: 10:03 Tonsillectomy; Hernia repair; Rotator Cuff; rb1 - Immunization history:: Adult Immunizations up to date. - Social history:: Smoking status: Patient/guardian denies using tobacco. - Ebola Screening: : Patient negative for fever greater than or equal to 101.5 degrees Fahrenheit, and additional compatible Ebola Virus Disease symptoms. Screenin:03 Abuse screen: Denies threats or abuse. Nutritional screening: No deficits noted. rb1 Tuberculosis screening: No symptoms or risk factors identified. Fall Risk None identified. Assessment: 10:03 General: See triage assessment. rb1 10:03 GI: Bowel sounds present X 4 quads. Abd is soft Abd is non tender in right lower rb1 quadrant. 11:00 Reassessment: Patient appears in no apparent distress at this time. Patient and/or rb1 family updated on plan of care and expected duration. Pain level reassessed. Patient is alert, oriented x 3, equal unlabored respirations, skin warm/dry/pink. 11:30 Reassessment: Patient appears in no apparent distress at this time. No changes from [facility] previously documented assessment. Vital Signs: 10:03 BP 140 / 87; Pulse 92; Resp 18; Temp 98.8(O); Pulse Ox 100% on R/A; Weight 113.4 kg rb1 (R); Height 5 ft. 10 in. (177.80 cm) (R); Pain 7/10; 11:00 BP 129 / 81; Pulse 83; Resp 18; Pulse Ox 100% on R/A; rb1 11:37 BP 127 / 74; Pulse 72; Resp 17; Pulse Ox 100% on R/A; rb1 10:03 Body Mass Index 35.87 (113.40 kg, 177.80 cm) [facility] ED Course: 09:56 Patient arrived in ED. mr 09:56 Cecilio Merida MD is Private Physician. mr 10:03 Jaz Agustin, RN is Primary Nurse. rb1 10:03 Arm band placed on right wrist. rb1 10:03 Patient has correct armband on for positive identification. Bed in low position. Call [facility] light in reach. Side rails up X 1. Pulse ox on. NIBP on. Warm blanket given. 10:04 Florentino Georges PA is PHCP. [facility] 10:04 Bacilio Newton MD is Attending Physician. [facility] 10:11 Triage completed. rb1 10:19 Inserted saline lock: 18 gauge in right antecubital area, using aseptic technique. 3 Blood collected. 10:22 Initial lab(s) drawn, by me, sent to lab. 3 10:42 Urine collected: clean catch specimen, cloudy. dh3 11:39 No provider procedures requiring assistance completed. IV discontinued, intact, rb1 bleeding controlled, No redness/swelling at site. Pressure dressing applied. Administered Medications: 10:20 Drug: NS 0.9% 1000 ml Route: IV; Rate: 1 bolus; Site: right antecubital; rb1 11:30 Follow up: IV Status: Completed infusion rb1 10:20 Drug: morphine 4 mg Route: IVP; Site: right antecubital; rb1 10:35 Follow up: Response: No adverse reaction; Pain is decreased rb1 10:20 Drug: Zofran 4 mg Route: IVP; Site: right antecubital; rb1 10:35 Follow up: Response: No adverse reaction; Nausea is decreased rb1 Outcome: 11:11 Discharge ordered by . sonu 11:39 Discharged to home ambulatory. rb1 11:39 Condition: stable 11:39 Discharge instructions given to patient, Instructed on discharge instructions, follow up and referral plans. medication usage, Demonstrated understanding of instructions, follow-up care, medications, Prescriptions given X 4. 11:40 Patient left the ED. rb1 Signatures: Florentino Georges PA PA jmm Rivera, Mary mr Jaz Agustin, RN RN rb1 Glenis Pappas 3 Corrections: (The following items were deleted from the chart) 10:33 10:20 Zofran 4 mg IVP in left antecubital rb1 rb1
--- NOTE | 2018-11-10 11:12 | EDPHYS ---
Physician Documentation [facility] Name: Slava Biswas Age: 33 yrs Sex: Male : 1985 Arrival Date: 11/10/2018 Time: 09:56 Bed 13 Private MD: Cecilio Merida ED Physician Bacilio Newton HPI: 11/10 10:17 This 33 yrs old Male presents to ER via Ambulatory with complaints of jmm Abdominal Pain. 10:17 The patient presents with abdominal pain. Onset: The symptoms/episode began/occurred jmm gradually, this morning. The symptoms do not radiate. Associated signs and symptoms: Pertinent positives: diarrhea. The symptoms are described as achy. Modifying factors: The symptoms are alleviated by nothing. The patient has experienced similar episodes in the past, several times. 10:17 This a 33 year old male with a history of UC that presents to the ED with right lower jmm abdominal pain beginning this morning with diarrhea. Patient states this is similar to previous flares in the same location of his abdomen. Denies fever. . Historical: - Allergies: 10:03 Codeine (Hives, rash); rb1 10:03 Tylenol-Codeine #3; rb1 - Home Meds: 10:03 Prilosec 40 mg Oral cpDR 1 cap 2 times per day [Active]; Probiotic Oral [Active]; rb1 - PMHx: 10:03 Colitis; GERD; rb1 - PSHx: 10:03 Tonsillectomy; Hernia repair; Rotator Cuff; rb1 - Immunization history:: Adult Immunizations up to date. - Social history:: Smoking status: Patient/guardian denies using tobacco. - Ebola Screening: : Patient negative for fever greater than or equal to 101.5 degrees Fahrenheit, and additional compatible Ebola Virus Disease symptoms. ROS: 10:17 Constitutional: Negative for fever, chills, and weight loss, Cardiovascular: Negative jmm for chest pain, palpitations, and edema, Respiratory: Negative for shortness of breath, cough, wheezing, and pleuritic chest pain. 10:17 Abdomen/GI: Positive for abdominal pain, nausea, diarrhea. 10:17 All other systems are negative. Exam: 10:17 Constitutional: This is a well developed, well nourished patient who is awake, alert, jmm and in no acute distress. Head/Face: atraumatic. Eyes: EOMI, no conjunctival erythema appreciated ENT: Moist Mucus Membranes Neck: Trachea midline, Supple Chest/axilla: Normal chest wall appearance and motion. Cardiovascular: Regular rate and rhythm. No edema appreciated Respiratory: Normal respirations, no respiratory distress appreciated 10:17 Back: Normal ROM Skin: General appearance color normal MS/ Extremity: Moves all extremities, no obvious deformities appreciated, no edema noted to the lower extremities Neuro: Awake and alert, normal gait Psych: Behavior is normal, Mood is normal, Patient is cooperative and pleasant 10:17 Abdomen/GI: Inspection: abdomen appears normal, Bowel sounds: normal, Palpation: abdomen is soft and non-tender, in all quadrants. Vital Signs: 10:03 BP 140 / 87; Pulse 92; Resp 18; Temp 98.8(O); Pulse Ox 100% on R/A; Weight 113.4 kg rb1 (R); Height 5 ft. 10 in. (177.80 cm) (R); Pain 7/10; 11:00 BP 129 / 81; Pulse 83; Resp 18; Pulse Ox 100% on R/A; rb1 11:37 BP 127 / 74; Pulse 72; Resp 17; Pulse Ox 100% on R/A; rb1 10:03 Body Mass Index 35.87 (113.40 kg, 177.80 cm) rb1 MDM: 10:11 Patient medically screened. [facility] 11:09 Data reviewed: vital signs, nurses notes. Counseling: I had a detailed discussion with sonu the patient and/or guardian regarding: the historical points, exam findings, and any diagnostic results supporting the discharge/admit diagnosis, lab results, the need for outpatient follow up, to return to the emergency department if symptoms worsen or persist or if there are any questions or concerns that arise at home. Response to treatment: the patient's symptoms have mildly improved after treatment. Refusal of service: The patient/guardian displays adequate decision making capability and despite a detailed discussion of alternatives, benefits, risks, and consequences refuses: CT Scan. ED course: Patient given early appendicitis return precautions. Patient states this is the normal presentation of a flare up. The patient states he will return to the ED if symptoms worsen. . 11/10 10:12 Order name: Basic Metabolic Panel; Complete Time: 10:44 [facility] 11/10 10:12 Order name: CBC with Diff; Complete Time: 10:44 [facility] 11/10 10:12 Order name: Creatinine for Radiology; Complete Time: [facility] 11/10 10:12 Order name: Hepatic Function; Complete Time: [facility] 11/10 10:12 Order name: Lipase; Complete Time: [facility] 11/10 10:59 Order name: Urine Dipstick--Ancillary (enter results); Complete Time: 11:35 [place] 11/10 10:12 Order name: IV Saline Lock; Complete Time: [facility] 11/10 10:12 Order name: Labs collected and sent; Complete Time: [facility] 11/10 10:12 Order name: Urine Dipstick-Ancillary (obtain specimen); Complete Time: 10:42 [facility] Administered Medications: 10:20 Drug: NS 0.9% 1000 ml Route: IV; Rate: 1 bolus; Site: right antecubital; rb1 11:30 Follow up: IV Status: Completed infusion rb1 10:20 Drug: morphine 4 mg Route: IVP; Site: right antecubital; rb1 10:35 Follow up: Response: No adverse reaction; Pain is decreased rb1 10:20 Drug: Zofran 4 mg Route: IVP; Site: right antecubital; rb1 10:35 Follow up: Response: No adverse reaction; Nausea is decreased rb1 Disposition: 13:32 Co-signature as Attending Physician, Bacilio Newton MD. rn Disposition: 11/10/18 11:11 Discharged to Home. Impression: Unspecified abdominal pain, Diarrhea, unspecified. - Condition is Stable. - Discharge Instructions: Abdominal Pain, Adult, Food Choices to Help Relieve Diarrhea, Adult. - Prescriptions for Flagyl 500 mg Oral Tablet - take 1 tablet by ORAL route every 8 hours for 10 days; 30 tablet. Cipro 500 mg Oral Tablet - take 1 tablet by ORAL route every 12 hours for 10 days; 20 tablet. Tramadol 50 mg Oral Tablet - take 1 tablet by ORAL route every 8 hours as needed; 12 tablet. Zofran 4 mg Oral Tablet - take 1 tablet by ORAL route every 12 hours As needed; 20 tablet. - Medication Reconciliation Form, Thank You Letter, Antibiotic Education, Prescription Opioid Use form. - Follow up: Private Physician; When: 2 - 3 days; Reason: Recheck today's complaints, Continuance of care, Re-evaluation by your physician. - Notes: Please return to the Emergency Department if - You develop a fever - You develop worsening pain - You develop vomiting Signatures: Dispatcher [employer] EDMS Florentino Georges PA PA jmm Nieto, Roman, MD MD rn Barber, Rebecca, RN RN rb1 Corrections: (The following items were deleted from the chart) 11:40 11:11 11/10/2018 11:11 Discharged to Home. Impression: Unspecified abdominal pain; rb1 Diarrhea, unspecified. Condition is Stable. Forms are Medication Reconciliation Form, Thank You Letter, Antibiotic Education, Prescription Opioid Use. Follow up: Private Physician; When: 2 - 3 days; Reason: Recheck today's complaints, Continuance of care, Re-evaluation by your physician. sonu
[2018-11-10 11:33] LABS: Urine Blood NEGATIVE (NEG); Urine Glucose NEGATIVE (NEG); Urine Protein NEGATIVE (NEG); Urine pH 7.5 (5.0-7.0)
== END 2018-11-10 11:40 | disposition home or self-care (01) ==
LOC: ER 09:54
DX: R10.9 Unspecified abdominal pain (principal); R19.7 Diarrhea, unspecified; Z88.5 Allergy status to narcotic agent; K21.9 Gastro-esophageal reflux disease without esophagitis
CPT/HCPCS: 36415; 80048; 80076; 81003; 83690; 85025; 96361; 96374; 96375; 99284; J2405; J7030

== ENCOUNTER 2018-12-02 11:41 | Emergency (ER) | payer BC ==
--- OUTSIDE RECORDS SUMMARY | 2018-12-02 11:43 | XMS REPORT ---
:1985 [facility] [address] [facility] [address] [place] [id number] Care Team Providers Name Role Phone Unavailable Unavailable Unavailable Problems This patient has no known problems. Allergies, Adverse Reactions, Alerts This patient has no known allergies or adverse reactions. Medications This patient has no known medications.
--- NOTE | 2018-12-02 13:54 | EDPHYS ---
Physician Documentation [facility] Name: Slava Biswas Age: 33 yrs Sex: Male : 1985 Arrival Date: 12/02/2018 Time: 11:43 Bed 25 Private MD: Cecilio Merida ED Physician Rei Noguera HPI: 12/02 13:43 This 33 yrs old Male presents to ER via Ambulatory with complaints of Sore kb Throat, Swollen Glands, Fever. 13:43 The patient presents with swollen nodes. The patient describes throat pain as constant. kb Onset: The symptoms/episode began/occurred 3 day(s) ago. Severity of symptoms: At their worst the symptoms were moderate, in the emergency department the symptoms are unchanged. Modifying factors: The symptoms are alleviated by nothing, the symptoms are aggravated by nothing, Patient's oral intake status: good. Associated signs and symptoms: Pertinent positives: fever. The patient has not experienced similar symptoms in the past. The patient has not recently seen a physician. Historical: - Allergies: 11:55 Codeine (Hives, rash); aa5 11:55 Tylenol-Codeine #3; aa5 - Home Meds: 11:55 Prilosec 40 mg Oral cpDR 1 cap 2 times per day [Active]; Probiotic Oral [Active]; aa5 - PMHx: 11:55 Colitis; GERD; aa5 - PSHx: 11:55 Tonsillectomy; Hernia repair; Rotator Cuff; aa5 - Immunization history:: Flu vaccine is not up to date. - Social history:: Smoking status: Patient/guardian denies using tobacco. - Ebola Screening: : No symptoms or risks identified at this time. ROS: 13:38 Eyes: Negative for injury, pain, redness, and discharge, ENT: Negative for injury, kb pain, and discharge, Cardiovascular: Negative for chest pain, palpitations, and edema, Respiratory: Negative for shortness of breath, cough, wheezing, and pleuritic chest pain, Abdomen/GI: Negative for abdominal pain, nausea, vomiting, diarrhea, and constipation, Back: Negative for injury and pain, : Negative for injury, bleeding, discharge, and swelling, MS/Extremity: Negative for injury and deformity, Skin: Negative for injury, rash, and discoloration, Neuro: Negative for headache, weakness, numbness, tingling, and seizure. 13:38 Constitutional: Positive for chills, fatigue, fever, malaise, Negative for body aches, poor PO intake, weight loss. 13:38 Neck: Positive for swollen nodes. Exam: 13:38 Constitutional: This is a well developed, well nourished patient who is awake, alert, kb and in no acute distress. Head/Face: Normocephalic, atraumatic. Chest/axilla: Normal chest wall appearance and motion. Nontender with no deformity. No lesions are appreciated. Cardiovascular: Regular rate and rhythm with a normal S1 and S2. No gallops, murmurs, or rubs. Normal PMI, no JVD. No pulse deficits. Respiratory: Lungs have equal breath sounds bilaterally, clear to auscultation and percussion. No rales, rhonchi or wheezes noted. No increased work of breathing, no retractions or nasal flaring. Abdomen/GI: Soft, non-tender, with normal bowel sounds. No distension or tympany. No guarding or rebound. No evidence of tenderness throughout. Skin: Warm, dry with normal turgor. Normal color with no rashes, no lesions, and no evidence of cellulitis. MS/ Extremity: Pulses equal, no cyanosis. Neurovascular intact. Full, normal range of motion. Neuro: Awake and alert, GCS 15, oriented to person, place, time, and situation. Cranial nerves II-XII grossly intact. Motor strength 5/5 in all extremities. Sensory grossly intact. Cerebellar exam normal. Normal gait. Vital Signs: 11:55 BP 129 / 94; Pulse 93; Resp 18 S; Temp 98.6(O); Pulse Ox 99% on R/A; Weight 113.4 kg aa5 (R); Height 5 ft. 10 in. (177.80 cm) (R); Pain 7/10; 13:15 BP 138 / 93; Pulse 89; Resp 19; Pulse Ox 98% on R/A; ca1 13:51 BP 134 / 94; Pulse 90; Resp 19; Pulse Ox 98% on R/A; ca1 11:55 Body Mass Index 35.87 (113.40 kg, 177.80 cm) aa5 MDM: 12:02 Patient medically screened. kb 13:38 Data reviewed: vital signs, nurses notes. Data interpreted: Pulse oximetry: on room air kb is 98 %. Interpretation: normal. 13:42 Counseling: I had a detailed discussion with the patient and/or guardian regarding: the kb historical points, exam findings, and any diagnostic results supporting the discharge/admit diagnosis, lab results, the need for outpatient follow up, a family practitioner, to return to the emergency department if symptoms worsen or persist or if there are any questions or concerns that arise at home. 12/02 12:18 Order name: Flu; Complete Time: 13:12 kb 12/02 12:18 Order name: Strep; Complete Time: 13:02 kb 12/02 12:18 Order name: [place] Screen Profile; Complete Time: 13:52 kb 12/02 13:00 Order name: Throat Culture EDMS Administered Medications: No medications were administered Disposition: 12/03 07:14 Co-signature as Attending Physician, Rei Noguera MD I agree with the assessment and umang plan of care. Disposition: 12/02/18 13:53 Discharged to Home. Impression: Fever, unspecified. - Condition is Stable. - Discharge Instructions: Viral Respiratory Infection, [id number], Fever, Adult, [id number]. - Medication Reconciliation Form, Thank You Letter, Antibiotic Education, Prescription Opioid Use form. - Follow up: Emergency Department; When: As needed; Reason: Worsening of condition. Follow up: Private Physician; When: 2 - 3 days; Reason: Recheck today's complaints, Continuance of care, Re-evaluation by your physician. Signatures: Dispatcher [employer] EDMS Veronica Holcomb, NUMERICAL CONTROL MACHINE MACHINIST-C ADAM-Rei Soto MD MD cha Calderon, Audri RN RN aa5 Vannessa Sanchez RN RN ca1 Corrections: (The following items were deleted from the chart) 12/02 14:02 13:53 12/02/2018 13:53 Discharged to Home. Impression: Fever, unspecified. Condition is ca1 Stable. Forms are Medication Reconciliation Form, Thank You Letter, Antibiotic Education, Prescription Opioid Use. Follow up: Emergency Department; When: As needed; Reason: Worsening of condition. Follow up: Private Physician; When: 2 - 3 days; Reason: Recheck today's complaints, Continuance of care, Re-evaluation by your physician. kb
--- NOTE | 2018-12-02 13:54 | ER ---
Nurse's Notes [facility] Name: Slava Biswas Age: 33 yrs Sex: Male : 1985 Arrival Date: 12/02/2018 Time: 11:43 Bed 25 Private MD: Cecilio Merida Diagnosis: Fever, unspecified Presentation: 12/02 11:53 Presenting complaint: Patient states: "since Sunday I've had a fever on and off and the aa5 glands on the left side of my neck are swollen". pt denies sore throat or difficulty swallowing. Transition of care: patient was not received from another setting of care. Onset of symptoms was November 2018. Risk Assessment: Do you want to hurt yourself or someone else? Patient reports no desire to harm self or others. Initial Sepsis Screen: Does the patient meet any 2 criteria? No. Patient's initial sepsis screen is negative. Does the patient have a suspected source of infection? No. Patient's initial sepsis screen is negative. Care prior to arrival: None. 11:53 Method Of Arrival: Ambulatory aa5 11:53 Acuity: TRACEE 4 aa5 Historical: - Allergies: 11:55 Codeine (Hives, rash); aa5 11:55 Tylenol-Codeine #3; aa5 - Home Meds: 11:55 Prilosec 40 mg Oral cpDR 1 cap 2 times per day [Active]; Probiotic Oral [Active]; aa5 - PMHx: 11:55 Colitis; GERD; aa5 - PSHx: 11:55 Tonsillectomy; Hernia repair; Rotator Cuff; aa5 - Immunization history:: Flu vaccine is not up to date. - Social history:: Smoking status: Patient/guardian denies using tobacco. - Ebola Screening: : No symptoms or risks identified at this time. Screenin:15 Abuse screen: Denies threats or abuse. Denies injuries from another. Nutritional ca1 screening: No deficits noted. Tuberculosis screening: No symptoms or risk factors identified. Fall Risk None identified. Assessment: 11:55 General: Appears comfortable, Behavior is calm, cooperative. Pain: Complains of pain in aa5 left submandibular area Pain currently is 7 out of 10 on a pain scale. Quality of pain is described as tender. Neuro: Level of Consciousness is awake, alert, obeys commands, Oriented to person, place, time, situation. Cardiovascular: Heart tones S1 S2 present Rhythm is regular. Respiratory: Airway is patent Respiratory effort is even, unlabored, Respiratory pattern is regular, symmetrical, Breath sounds are clear bilaterally. GI: No signs and/or symptoms were reported involving the gastrointestinal system. : No signs and/or symptoms were reported regarding the genitourinary system. EENT: No signs and/or symptoms were reported regarding the EENT system. Derm: Skin is pink, warm \\T\\ dry. Musculoskeletal: Range of motion: intact in all extremities. 13:15 General: Appears in no apparent distress. comfortable, Behavior is calm, cooperative, ca1 appropriate for age. 13:15 General: pt reports of on and off fever for 3-4 days. . Pain: Complains of pain in left ca1 submandibular area Pain currently is 6 out of 10 on a pain scale. Neuro: Neuro: Level of Consciousness is awake, alert, obeys commands, Oriented to person, place, time, situation. Cardiovascular: Heart tones S1 S2 present Capillary refill < 3 seconds Patient's skin is warm and dry. Respiratory: Airway is patent Respiratory effort is even, unlabored, Respiratory pattern is regular, symmetrical, Breath sounds are clear bilaterally. GI: Abdomen is flat, non-distended, Bowel sounds present X 4 quads. Abd is soft and non tender X 4 quads. : No signs and/or symptoms were reported regarding the genitourinary system. EENT: Throat is pink. Derm: Skin is intact, is healthy with good turgor, Skin is pink, warm \\T\\ dry. Musculoskeletal: Circulation, motion, and sensation intact. Capillary refill < 3 seconds. 13:51 Reassessment: Patient appears in no apparent distress at this time. Patient and/or ca1 family updated on plan of care and expected duration. Pain level reassessed. Patient is alert, oriented x 3, equal unlabored respirations, skin warm/dry/pink. Vital Signs: 11:55 BP 129 / 94; Pulse 93; Resp 18 S; Temp 98.6(O); Pulse Ox 99% on R/A; Weight 113.4 kg aa5 (R); Height 5 ft. 10 in. (177.80 cm) (R); Pain 7/10; 13:15 BP 138 / 93; Pulse 89; Resp 19; Pulse Ox 98% on R/A; ca1 13:51 BP 134 / 94; Pulse 90; Resp 19; Pulse Ox 98% on R/A; ca1 11:55 Body Mass Index 35.87 (113.40 kg, 177.80 cm) aa5 ED Course: 11:43 Patient arrived in ED. as 11:44 Cecilio Merida MD is Private Physician. as 11:54 Triage completed. aa5 11:54 Arm band placed on. aa5 11:55 Marzena Rust, RN is Primary Nurse. aa5 12:02 Veronica Holcomb [facility]-C [facility]. kb 12:02 Rei Noguera MD is Attending Physician. kb 12:41 Strep Sent. ss 12:42 Flu Sent. ss 13:15 Patient has correct armband on for positive identification. Bed in low position. Call ca1 light in reach. Side rails up X 1. Pulse ox on. NIBP on. Warm blanket given. 14:01 No provider procedures requiring assistance completed. Patient did not have IV access ca1 during this emergency room visit. Administered Medications: No medications were administered Outcome: 13:53 Discharge ordered by . kb 14:01 Discharged to home ambulatory. ca1 14:01 Condition: stable 14:01 Discharge instructions given to patient, Instructed on discharge instructions, follow up and referral plans. Demonstrated understanding of instructions, follow-up care. 14:02 Patient left the ED. ca1 Signatures: Veronica Holcomb FNP-C FNP-Malini Rios as Marzena Rust, RN HARSHA aa5 Ursula Encinas RN RN Vannessa Sanchez RN RN ca1
== END 2018-12-02 14:02 | disposition home or self-care (01) ==
LOC: ER 11:41
DX: R50.9 Fever, unspecified (principal); J02.9 Acute pharyngitis, unspecified; K21.9 Gastro-esophageal reflux disease without esophagitis; Z88.5 Allergy status to narcotic agent
CPT/HCPCS: 36415; 86308; 87070; 87081; 87804

== ENCOUNTER 2018-12-15 14:33 | Emergency (ER) | payer BC ==
--- OUTSIDE RECORDS SUMMARY | 2018-12-15 14:35 | XMS REPORT ---
:1985 [facility] [address] Webb [address] [place] [id number] Care Team Providers Name Role Phone Unavailable Unavailable Unavailable Problems This patient has no known problems. Allergies, Adverse Reactions, Alerts This patient has no known allergies or adverse reactions. Medications This patient has no known medications.
[2018-12-15 15:42] LABS: Absolute Lymphocytes (CBC) 1.6 K/uL (0.7-4.9); Absolute Monocytes 0.6 K/uL (0.1-1.3); Absolute Neutrophil 6.3 K/uL (1.8-8.0); Basophils % 0.4 % (0-1.3); Eosinophils % 0.8 % (0-4.4); Hematocrit 42.9 % (39.6-49.0); Lymphocytes % 18.7 % (15.3-44.8); MPV 8.5 fL (7.6-11.3); Monocytes % 7.4 % (3.3-12.3)
[2018-12-15] MEDS ORDERED: FENTANYL CITR 100 MCG/2 ML ONE ×2 (15:45→16:35)
[2018-12-15] MEDS ORDERED: NA CHLORIDE 0.9% 1,000 ML ONE (15:46)
[2018-12-15] MEDS ORDERED: ONDANSETRON 4 MG/2 ML VIAL ONE (15:46)
[2018-12-15 15:56] LABS: Albumin 3.8 g/dL (3.4-5.0); Bilirubin Direct 0.1 mg/dL (0-0.2); Bilirubin Total 0.4 mg/dL (0.2-1.0); Potassium 4.1 mmol/L (3.5-5.1); Protein, Total 7.5 g/dL (6.4-8.2)
--- NOTE | 2018-12-15 16:31 | EDPHYS ---
Physician Documentation [facility] Name: Slava Biswas Age: 33 yrs Sex: Male : 1985 Arrival Date: 12/15/2018 Time: 14:34 Bed 13 Private MD: Cecilio Merida ED Physician Ja Rausch HPI: 12/15 16:20 This 33 yrs old Male presents to ER via Ambulatory with complaints of pm1 Abdominal Pain - Ulcerative Colitis. 16:20 The patient presents with abdominal pain in the lower abdomen. Onset: The pm1 symptoms/episode began/occurred this morning. The symptoms do not radiate. Associated signs and symptoms: Pertinent positives: nausea, mucoid diarrhea, Pertinent negatives: chest pain, constipation, dysuria, fever, shortness of breath. The symptoms are described as crampy. Modifying factors: The symptoms are alleviated by nothing, the symptoms are aggravated by nothing. Severity of pain: in the emergency department the pain is actually worse. The patient has experienced similar episodes in the past, multiple times. Historical: - Allergies: 14:41 Codeine (Hives, rash); la1 14:41 Tylenol-Codeine #3; la1 - PMHx: 14:41 Colitis; GERD; la1 - Immunization history:: Adult Immunizations up to date. - Social history:: Smoking status: Patient/guardian denies using tobacco. - Ebola Screening: : No symptoms or risks identified at this time. ROS: 16:20 Constitutional: Negative for fever, chills, and weight loss, Eyes: Negative for injury, pm1 pain, redness, and discharge, ENT: Negative for injury, pain, and discharge, Neck: Negative for injury, pain, and swelling, Cardiovascular: Negative for chest pain, palpitations, and edema, Respiratory: Negative for shortness of breath, cough, wheezing, and pleuritic chest pain, Back: Negative for injury and pain, : Negative for injury, bleeding, discharge, and swelling. 16:20 MS/Extremity: Negative for injury and deformity, Skin: Negative for injury, rash, and discoloration, Neuro: Negative for headache, weakness, numbness, tingling, and seizure. 16:20 Abdomen/GI: Positive for abdominal pain, nausea, Negative for vomiting, constipation. Exam: 16:20 Constitutional: This is a well developed, well nourished patient who is awake, alert, pm1 and in no acute distress. Head/Face: Normocephalic, atraumatic. Eyes: Pupils equal round and reactive to light, extra-ocular motions intact. Lids and lashes normal. Conjunctiva and sclera are non-icteric and not injected. Cornea within normal limits. Periorbital areas with no swelling, redness, or edema. ENT: Nares patent. No nasal discharge, no septal abnormalities noted. Tympanic membranes are normal and external auditory canals are clear. Oropharynx with no redness, swelling, or masses, exudates, or evidence of obstruction, uvula midline. Mucous membranes moist. Neck: Trachea midline, no thyromegaly or masses palpated, and no cervical lymphadenopathy. Supple, full range of motion without nuchal rigidity, or vertebral point tenderness. No Meningismus. Chest/axilla: Normal chest wall appearance and motion. Nontender with no deformity. No lesions are appreciated. Cardiovascular: Regular rate and rhythm with a normal S1 and S2. No gallops, murmurs, or rubs. Normal PMI, no JVD. No pulse deficits. Respiratory: Lungs have equal breath sounds bilaterally, clear to auscultation and percussion. No rales, rhonchi or wheezes noted. No increased work of breathing, no retractions or nasal flaring. 16:20 Back: No spinal tenderness. No costovertebral tenderness. Full range of motion. Skin: Warm, dry with normal turgor. Normal color with no rashes, no lesions, and no evidence of cellulitis. MS/ Extremity: Pulses equal, no cyanosis. Neurovascular intact. Full, normal range of motion. 16:20 Abdomen/GI: Inspection: abdomen appears normal, Bowel sounds: normal, Palpation: soft, mild abdominal tenderness, in the right lower quadrant, mass, is not appreciated, rebound tenderness, is not appreciated. 16:20 Neuro: Orientation: is normal, Motor: is normal, moves all fours. Vital Signs: 14:41 BP 139 / 93; Pulse 116; Resp 18; Temp 98.9; Pulse Ox 100% on R/A; Weight 113.4 kg; la1 Height 5 ft. 10 in. (177.80 cm); 16:29 BP 119 / 75; Pulse 83; Resp 14; Pulse Ox 100% ; bp 14:41 Body Mass Index 35.87 (113.40 kg, 177.80 cm) la1 MDM: 14:56 Patient medically screened. pm1 16:28 Data reviewed: vital signs. Data interpreted: Pulse oximetry: on room air is 100 %. pm1 Interpretation: normal. 16:28 Special discussion: Based on the patient's Hx, exam, and Dx evaluation, there is no pm1 indication for emergent surgery or inpatient Tx. It is understood by the patient/guardian that if the Sx's persist or worsen they need to return immediately for re-evaluation. 16:28 ED course: Patient with recent PET scan and MRI for his work 2 weeks ago. Does not want pm1 CT abdomen due to symptoms being exactly like his prior ulcerative colitis flare ups. 16:28 Counseling: I had a detailed discussion with the patient and/or guardian regarding: the pm1 historical points, exam findings, and any diagnostic results supporting the discharge/admit diagnosis, lab results, the need for outpatient follow up, to return to the emergency department if symptoms worsen or persist or if there are any questions or concerns that arise at home. 16:30 ED course: Patient does not want to wait for antibiotic administration in the ER. He pm1 wants to go home. Requesting just a prescription for abx. 12/15 15:11 Order name: Basic Metabolic Panel; Complete Time: 16:02 pm1 12/15 15:11 Order name: CBC with Diff; Complete Time: 16:02 pm1 12/15 15:11 Order name: Creatinine for Radiology; Complete Time: 16:02 pm1 12/15 15:11 Order name: Hepatic Function; Complete Time: 16:02 pm1 12/15 15:11 Order name: Lipase; Complete Time: 16:02 pm1 12/15 15:11 Order name: IV Saline Lock; Complete Time: 15:55 pm1 12/15 15:11 Order name: Labs collected and sent; Complete Time: 15:55 pm1 Administered Medications: 15:30 Drug: Zofran 4 mg Route: IVP; Site: right antecubital; bp 16:27 Follow up: Response: Pain is decreased bp 15:30 Drug: fentaNYL (PF) 50 mcg Route: IVP; Site: right antecubital; bp 16:28 Follow up: Response: Pain is decreased bp 15:30 Drug: NS 0.9% 1000 ml Route: IV; Rate: 1000 ml; Site: right antecubital; bp 16:28 Follow up: IV Status: Completed infusion; IV Intake: 1000ml bp 16:25 Drug: fentaNYL (PF) 50 mcg Route: IVP; Site: right antecubital; bp 16:50 Follow up: Response: Pain is decreased bp Disposition: 12/16 11:55 Co-signature as Attending Physician, Ja Rausch MD. Disposition: 12/15/18 16:30 Discharged to Home. Impression: Unspecified abdominal pain, Other ulcerative colitis. - Condition is Stable. - Discharge Instructions: Abdominal Pain, Adult, Ulcerative Colitis, Adult. - Prescriptions for Flagyl 500 mg Oral Tablet - take 1 tablet by ORAL route every 8 hours for 10 days; 30 tablet. Cipro 500 mg Oral Tablet - take 1 tablet by ORAL route every 12 hours for 10 days; 20 tablet. Tramadol 50 mg Oral Tablet - take 1 tablet by ORAL route every 8 hours as needed; 20 tablet. - Medication Reconciliation Form, Thank You Letter, Antibiotic Education, Prescription Opioid Use form. - Follow up: Emergency Department; When: As needed; Reason: Worsening of condition. Follow up: Private Physician; When: 2 - 3 days; Reason: Recheck today's complaints, Continuance of care, Re-evaluation by your physician. - Problem is new. - Symptoms have improved. Signatures: Dispatcher [employer] EDMS Miles Biggs RN RN la1 Luc Portillo, BACK END WEB DEVELOPER BACK END WEB DEVELOPER pm1 Ja Rausch MD MD Candido Weaver RN RN bp Corrections: (The following items were deleted from the chart) 12/15 16:54 16:30 12/15/2018 16:30 Discharged to Home. Impression: Unspecified abdominal pain; bp Other ulcerative colitis. Condition is Stable. Forms are Medication Reconciliation Form, Thank You Letter, Antibiotic Education, Prescription Opioid Use. Follow up: Emergency Department; When: As needed; Reason: Worsening of condition. Follow up: Private Physician; When: 2 - 3 days; Reason: Recheck today's complaints, Continuance of care, Re-evaluation by your physician. Problem is new. Symptoms have improved. pm1
--- NOTE | 2018-12-15 16:31 | ER ---
Nurse's Notes [facility] Name: Slava Biswas Age: 33 yrs Sex: Male : 1985 Arrival Date: 12/15/2018 Time: 14:34 Bed 13 Private MD: Cecilio Merida Diagnosis: Unspecified abdominal pain;Other ulcerative colitis Presentation: 12/15 14:40 Presenting complaint: Patient states: I have UC and I am having a flare that started la1 this morning, Pt reports diarrhea and abd pain. Transition of care: patient was not received from another setting of care. Onset of symptoms was December 15, 2018. Risk Assessment: Do you want to hurt yourself or someone else? Patient reports no desire to harm self or others. Initial Sepsis Screen: Does the patient meet any 2 criteria? No. Patient's initial sepsis screen is negative. Does the patient have a suspected source of infection? No. Patient's initial sepsis screen is negative. Care prior to arrival: None. 14:40 Method Of Arrival: Ambulatory la1 14:40 Acuity: TRACEE 3 la1 Historical: - Allergies: 14:41 Codeine (Hives, rash); la1 14:41 Tylenol-Codeine #3; la1 - PMHx: 14:41 Colitis; GERD; la1 - Immunization history:: Adult Immunizations up to date. - Social history:: Smoking status: Patient/guardian denies using tobacco. - Ebola Screening: : No symptoms or risks identified at this time. Screenin:45 Abuse screen: Denies threats or abuse. Denies injuries from another. Nutritional bp screening: No deficits noted. Tuberculosis screening: No symptoms or risk factors identified. Fall Risk None identified. Assessment: 14:45 General: Appears in no apparent distress. uncomfortable, Behavior is calm, cooperative, bp appropriate for age. Pain: Complains of pain in right lower quadrant. Neuro: Level of Consciousness is awake, alert, obeys commands, Oriented to person, place, time, situation, Appropriate for age. Cardiovascular: No deficits noted. Respiratory: Airway is patent Respiratory effort is even, unlabored, Respiratory pattern is regular, symmetrical. GI: Bowel sounds present X 4 quads. Abd is soft X 4 quads. : No signs and/or symptoms were reported regarding the genitourinary system. EENT: No deficits noted. Derm: No deficits noted. Musculoskeletal: Circulation, motion, and sensation intact. Range of motion: intact in all extremities. 16:53 Reassessment: PT D/C HOME AMBULATORY, DX WITH ULCERATIVE COLITIS. bp Vital Signs: 14:41 BP 139 / 93; Pulse 116; Resp 18; Temp 98.9; Pulse Ox 100% on R/A; Weight 113.4 kg; la1 Height 5 ft. 10 in. (177.80 cm); 16:29 BP 119 / 75; Pulse 83; Resp 14; Pulse Ox 100% ; bp 14:41 Body Mass Index 35.87 (113.40 kg, 177.80 cm) la1 ED Course: 14:34 Patient arrived in ED. as 14:35 Maegan Echols MD is Private Physician. as 14:35 Cecilio Merida MD is Private Physician. as 14:40 Triage completed. la1 14:41 Arm band placed on left wrist. la1 14:45 Patient has correct armband on for positive identification. Bed in low position. Call bp light in reach. Side rails up X2. 14:53 Luc Portillo, DRAMATIC ARTS HISTORIAN is PHCP. pm1 14:53 Ja Rausch MD is Attending Physician. pm1 14:58 Candido Weaver, HARSHA is Primary Nurse. bp 15:30 Inserted saline lock: 20 gauge in right antecubital area, using aseptic technique. bp Blood collected. 16:53 No provider procedures requiring assistance completed. IV discontinued, intact, bp bleeding controlled, No redness/swelling at site. Pressure dressing applied. Administered Medications: 15:30 Drug: Zofran 4 mg Route: IVP; Site: right antecubital; bp 16:27 Follow up: Response: Pain is decreased bp 15:30 Drug: fentaNYL (PF) 50 mcg Route: IVP; Site: right antecubital; bp 16:28 Follow up: Response: Pain is decreased bp 15:30 Drug: NS 0.9% 1000 ml Route: IV; Rate: 1000 ml; Site: right antecubital; bp 16:28 Follow up: IV Status: Completed infusion; IV Intake: 1000ml bp 16:25 Drug: fentaNYL (PF) 50 mcg Route: IVP; Site: right antecubital; bp 16:50 Follow up: Response: Pain is decreased bp Intake: 16:28 IV: 1000ml; Total: 1000ml. bp Outcome: 16:30 Discharge ordered by MD. pm1 16:54 Discharged to home ambulatory. bp 16:54 Condition: stable 16:54 Discharge instructions given to patient, Instructed on discharge instructions, follow up and referral plans. medication usage, Demonstrated understanding of instructions, follow-up care, medications, Prescriptions given X 3. 16:54 Patient left the ED. bp Signatures: Malini Velazquez Lee, RN RN la1 Luc Portillo NP DRAMATIC ARTS HISTORIAN pm1 Candido Weaver RN RN bp
== END 2018-12-15 16:54 | disposition home or self-care (01) ==
LOC: ER 14:33
DX: K51.80 Other ulcerative colitis without complications (principal); Z88.5 Allergy status to narcotic agent; Z88.6 Allergy status to analgesic agent
CPT/HCPCS: 36415; 80048; 80076; 83690; 85025; 96361; 96374; 96375; 99284; J2405; J3010; J7030

== ENCOUNTER 2019-04-20 13:12 | Emergency (ER) | payer BC ==
--- OUTSIDE RECORDS SUMMARY | 2019-04-20 13:14 | XMS REPORT ---
:1985 [facility] [address] [place] [id number] Care Team Providers Name Role Phone Unavailable Unavailable Unavailable Problems This patient has no known problems. Allergies, Adverse Reactions, Alerts This patient has no known allergies or adverse reactions. Medications This patient has no known medications.
[2019-04-20 13:51] LABS: Absolute Lymphocytes (CBC) 1.6 K/uL (0.7-4.9); Basophils % 0.4 % (0-1.3); Eosinophils % 0.7 % (0-4.4); Lymphocytes % 21.3 % (15.3-44.8); MPV 8.5 fL (7.6-11.3); Monocytes % 10.6 % (3.3-12.3); RBC Red Blood Cell Count 5.11 M/uL (4.33-5.43)
[2019-04-20] MEDS ORDERED: NA CHLORIDE 0.9% 1,000 ML ONE (13:51)
[2019-04-20] MEDS ORDERED: ONDANSETRON 4 MG/2 ML VIAL ONE (13:51)
[2019-04-20] MEDS ORDERED: FENTANYL CITR 100 MCG/2 ML ONE (13:51)
[2019-04-20 14:02] LABS: Potassium 3.8 mmol/L (3.5-5.1)
--- NOTE | 2019-04-20 14:03 | ER ---
Nurse's Notes [facility] Name: Slava Biswas Age: 33 yrs Sex: Male : 1985 Arrival Date: 04/20/2019 Time: 13:14 Bed 19 Private MD: Cecilio Merida Diagnosis: Other ulcerative colitis Presentation: 04/20 13:16 Presenting complaint: Patient states: Abd pain and diarrhea that started this morning, la1 feels like flare of UC. Transition of care: patient was not received from another setting of care. Onset of symptoms was April 20, 2019. Risk Assessment: Do you want to hurt yourself or someone else? Patient reports no desire to harm self or others. Initial Sepsis Screen: Does the patient meet any 2 criteria? No. Patient's initial sepsis screen is negative. Does the patient have a suspected source of infection? No. Patient's initial sepsis screen is negative. Care prior to arrival: None. 13:16 Method Of Arrival: Ambulatory la1 13:16 Acuity: TRACEE 3 la1 Historical: - Allergies: 13:16 Codeine (Hives, rash); la1 13:16 Tylenol-Codeine #3; la1 - Home Meds: 13:16 Prilosec 40 mg Oral cpDR 1 cap 2 times per day [Active]; Probiotic Oral [Active]; la1 - PMHx: 13:16 GERD; Ulcertive Colitis; la1 - PSHx: 13:16 Hernia repair; la1 - Immunization history:: Adult Immunizations up to date. - Social history:: Smoking status: unknown. - Ebola Screening: : No symptoms or risks identified at this time. Screenin:35 Abuse screen: Denies threats or abuse. Nutritional screening: No deficits noted. iw Tuberculosis screening: No symptoms or risk factors identified. Fall Risk None identified. Assessment: 13:40 General: Appears in no apparent distress. comfortable, Behavior is calm, cooperative, em Denies fever. Pain: Complains of pain in right lower quadrant Pain currently is 7 out of 10 on a pain scale. Pain began this morning. Neuro: Level of Consciousness is awake, alert, obeys commands, Oriented to person, place, time, situation. Cardiovascular: Capillary refill < 3 seconds Patient's skin is warm and dry. Respiratory: Airway is patent Respiratory effort is even, unlabored, Respiratory pattern is regular, symmetrical. GI: Abdomen is flat, Bowel sounds present X 4 quads. Abd is soft X 4 quads Abdomen is tender to palpation in right lower quadrant Reports diarrhea, Patient currently denies nausea, vomiting. Derm: Skin is intact, is healthy with good turgor, Skin is pink, warm \T\ dry. Musculoskeletal: Capillary refill < 3 seconds, Range of motion: intact in all extremities. 14:30 Reassessment: Patient appears in no apparent distress at this time. Patient and/or iw family updated on plan of care and expected duration. Pain level reassessed. Patient is alert, oriented x 3, equal unlabored respirations, skin warm/dry/pink. Patient states feeling better. Vital Signs: 13:16 Pulse 109; Resp 16; Temp 99.1; Pulse Ox 100% on R/A; Weight 117.93 kg; Height 5 ft. 10 la1 in. (177.80 cm); Pain 7/10; 13:18 BP 148 / 93; la1 13:40 BP 132 / 89; Pulse 84; Resp 20; Pulse Ox 97% on R/A; Pain 7/10; em 14:30 BP 123 / 77; Pulse 77; Resp 18; Pulse Ox 97% on R/A; Pain 5/10; em 13:16 Body Mass Index 37.31 (117.93 kg, 177.80 cm) la1 ED Course: 13:14 Patient arrived in ED. mr 13:14 Cecilio Merida MD is Private Physician. mr 13:16 Triage completed. la1 13:16 Arm band placed on left wrist. la1 13:25 Mary Ervin MD is Attending Physician. ma2 13:25 [facility] Holcomb [facility]C [facility] kb 13:28 Lavon Isbell LVN is Primary Nurse. em 13:35 Patient has correct armband on for positive identification. Bed in low position. Call iw light in reach. Pulse ox on. NIBP on. 13:41 Initial lab(s) drawn, by me, sent to lab. Inserted saline lock: 22 gauge in right jb1 antecubital area, using aseptic technique. Blood collected. Administered Medications: 13:38 Drug: NS 0.9% 1000 ml Route: IV; Rate: 1000 ml; Site: right antecubital; em 14:34 Follow up: IV Status: Completed infusion; IV Intake: 1000ml em 13:40 Drug: Zofran 4 mg Route: IVP; Site: right antecubital; iw 14:29 Follow up: Response: No adverse reaction; Pain is decreased em 13:42 Drug: fentaNYL (PF) 50 mcg Route: IVP; Site: right antecubital; iw 14:29 Follow up: Response: No adverse reaction; Pain is decreased iw 14:25 Drug: Flagyl 500 mg Route: PO; iw 14:45 Follow up: Response: No adverse reaction em 14:25 Drug: Cipro 500 mg Route: PO; iw 14:45 Follow up: Response: No adverse reaction em Intake: 14:34 IV: 1000ml; Total: 1000ml. em Outcome: 14:02 Discharge ordered by . kb 15:01 Patient left the ED. em Signatures: Slava Mead jb1 Veronica Holcomb, PROCTOLOGIST-C PROCTOLOGIST-Ckb Mary Carmen Eller mr Lavon Isbell, HVAC PROJECT MANAGER HVAC PROJECT MANAGER em Jolene Ware RN RN Miles Biggs RN RN la1 Mary Ervin MD MD ma2
--- NOTE | 2019-04-20 14:03 | EDPHYS ---
Physician Documentation [facility] Name: Slava Biswas Age: 33 yrs Sex: Male : 1985 Arrival Date: 04/20/2019 Time: 13:14 Bed 19 Private MD: Cecilio Merida ED Physician Mary Ervin HPI: 04/20 13:58 This 33 yrs old Male presents to ER via Ambulatory with complaints of kb Abdominal Pain. 13:58 The patient presents with abdominal pain right lower quadrant. Onset: The kb symptoms/episode began/occurred this morning, at 06:30. The symptoms do not radiate. Associated signs and symptoms: Pertinent positives: diarrhea, Pertinent negatives: nausea and vomiting, fever. The symptoms are described as constant. Modifying factors: The symptoms are alleviated by nothing, the symptoms are aggravated by nothing. Severity of pain: At its worst the pain was moderate in the emergency department the pain is unchanged. The patient has experienced similar episodes in the past, multiple times, and the symptoms today are exactly the same, to previous UC flares. The patient has not recently seen a physician. Pt states "I'm having a flare-up of ulcerative colitis." Reports he is having the exact same symptoms, same pain in same location as his previous flares. Historical: - Allergies: 13:16 Codeine (Hives, rash); la1 13:16 Tylenol-Codeine #3; la1 - Home Meds: 13:16 Prilosec 40 mg Oral cpDR 1 cap 2 times per day [Active]; Probiotic Oral [Active]; la1 - PMHx: 13:16 GERD; Ulcertive Colitis; la1 - PSHx: 13:16 Hernia repair; la1 - Immunization history:: Adult Immunizations up to date. - Social history:: Smoking status: unknown. - Ebola Screening: : No symptoms or risks identified at this time. ROS: 14:00 Constitutional: Negative for fever, chills, and weight loss, ENT: Negative for injury, kb pain, and discharge, Neck: Negative for injury, pain, and swelling, Cardiovascular: Negative for chest pain, palpitations, and edema, Respiratory: Negative for shortness of breath, cough, wheezing, and pleuritic chest pain, Back: Negative for injury and pain, : Negative for injury, bleeding, discharge, and swelling, MS/Extremity: Negative for injury and deformity, Skin: Negative for injury, rash, and discoloration, Neuro: Negative for headache, weakness, numbness, tingling, and seizure. 14:00 Abdomen/GI: Positive for abdominal pain, diarrhea. Exam: 14:00 Constitutional: This is a well developed, well nourished patient who is awake, alert, kb and in no acute distress. Head/Face: Normocephalic, atraumatic. ENT: Nares patent. No nasal discharge, no septal abnormalities noted. Tympanic membranes are normal and external auditory canals are clear. Oropharynx with no redness, swelling, or masses, exudates, or evidence of obstruction, uvula midline. Mucous membranes moist. Neck: Trachea midline, no thyromegaly or masses palpated, and no cervical lymphadenopathy. Supple, full range of motion without nuchal rigidity, or vertebral point tenderness. No Meningismus. Chest/axilla: Normal chest wall appearance and motion. Nontender with no deformity. No lesions are appreciated. Cardiovascular: Regular rate and rhythm with a normal S1 and S2. No gallops, murmurs, or rubs. Normal PMI, no JVD. No pulse deficits. Respiratory: Lungs have equal breath sounds bilaterally, clear to auscultation and percussion. No rales, rhonchi or wheezes noted. No increased work of breathing, no retractions or nasal flaring. Skin: Warm, dry with normal turgor. Normal color with no rashes, no lesions, and no evidence of cellulitis. MS/ Extremity: Pulses equal, no cyanosis. Neurovascular intact. Full, normal range of motion. Neuro: Awake and alert, GCS 15, oriented to person, place, time, and situation. Cranial nerves II-XII grossly intact. Motor strength 5/5 in all extremities. Sensory grossly intact. Cerebellar exam normal. Normal gait. 14:00 Abdomen/GI: Inspection: abdomen appears normal, Bowel sounds: normal, in all quadrants, Palpation: soft, in all quadrants, moderate abdominal tenderness, in the right lower quadrant. Vital Signs: 13:16 Pulse 109; Resp 16; Temp 99.1; Pulse Ox 100% on R/A; Weight 117.93 kg; Height 5 ft. 10 la1 in. (177.80 cm); Pain 7/10; 13:18 BP 148 / 93; la1 13:40 BP 132 / 89; Pulse 84; Resp 20; Pulse Ox 97% on R/A; Pain 7/10; em 14:30 BP 123 / 77; Pulse 77; Resp 18; Pulse Ox 97% on R/A; Pain 5/10; em 13:16 Body Mass Index 37.31 (117.93 kg, 177.80 cm) la1 MDM: 13:25 Patient medically screened. ma2 14:00 Data reviewed: vital signs, nurses notes. Data interpreted: Pulse oximetry: on room air kb is 100 %. Interpretation: normal. Counseling: I had a detailed discussion with the patient and/or guardian regarding: the historical points, exam findings, and any diagnostic results supporting the discharge/admit diagnosis, lab results, the need for outpatient follow up, a family practitioner, a cap blocker, to return to the emergency department if symptoms worsen or persist or if there are any questions or concerns that arise at home. 04/20 13:28 Order name: Basic Metabolic Panel; Complete Time: 14:02 kb 04/20 13:28 Order name: CBC with Diff; Complete Time: 13:56 kb 04/20 13:28 Order name: IV Saline Lock; Complete Time: 13:41 kb 04/20 13:28 Order name: Labs collected and sent; Complete Time: 13:41 kb Administered Medications: 13:38 Drug: NS 0.9% 1000 ml Route: IV; Rate: 1000 ml; Site: right antecubital; em 14:34 Follow up: IV Status: Completed infusion; IV Intake: 1000ml em 13:40 Drug: Zofran 4 mg Route: IVP; Site: right antecubital; iw 14:29 Follow up: Response: No adverse reaction; Pain is decreased em 13:42 Drug: fentaNYL (PF) 50 mcg Route: IVP; Site: right antecubital; iw 14:29 Follow up: Response: No adverse reaction; Pain is decreased iw 14:25 Drug: Flagyl 500 mg Route: PO; iw 14:45 Follow up: Response: No adverse reaction em 14:25 Drug: Cipro 500 mg Route: PO; iw 14:45 Follow up: Response: No adverse reaction em Disposition: 18:58 Co-signature as Attending Physician, Mary Ervin MD. ma2 Disposition: 04/20/19 14:02 Discharged to Home. Impression: Other ulcerative colitis. - Condition is Stable. - Discharge Instructions: Ulcerative Colitis, Adult. - Prescriptions for Cipro 500 mg Oral Tablet - take 1 tablet by ORAL route every 12 hours for 10 days; 20 tablet. Flagyl 500 mg Oral Tablet - take 1 tablet by ORAL route every 8 hours for 10 days; 30 tablet. Tramadol 50 mg Oral Tablet - take 1 tablet by ORAL route every 8 hours as needed; 12 tablet. - Medication Reconciliation Form, Thank You Letter, Antibiotic Education, Prescription Opioid Use form. - Follow up: Emergency Department; When: As needed; Reason: Worsening of condition. Follow up: Private Physician; When: 2 - 3 days; Reason: Recheck today's complaints, Continuance of care, Re-evaluation by your physician. Signatures: Dispatcher [employer] Veronica De Jesus, TONEC CIAIO COUNTER MOLDER-Lavon James, PHOTOGRAPHIC PROCESS ATTENDANT PHOTOGRAPHIC PROCESS ATTENDANT em Jolene Ware RN RN iw Attema, Lee, RN RN la1 Mary Ervin MD MD ma2 Corrections: (The following items were deleted from the chart) 15:01 14:02 04/20/2019 14:02 Discharged to Home. Impression: Other ulcerative colitis. em Condition is Stable. Discharge Instructions: Ulcerative Colitis, Adult. Prescriptions for Cipro 500 mg Oral Tablet - take 1 tablet by ORAL route every 12 hours for 10 days; 20 tablet, Flagyl 500 mg Oral Tablet - take 1 tablet by ORAL route every 8 hours for 10 days; 30 tablet, Tramadol 50 mg Oral Tablet - take 1 tablet by ORAL route every 8 hours as needed; 12 tablet. and Forms are Medication Reconciliation Form, Thank You Letter, Antibiotic Education, Prescription Opioid Use. Follow up: Emergency Department; When: As needed; Reason: Worsening of condition. Follow up: Private Physician; When: 2 - 3 days; Reason: Recheck today's complaints, Continuance of care, Re-evaluation by your physician. kb
[2019-04-20] MEDS ORDERED: CIPROFLOXACIN HCL 500 MG TAB ONE (14:39)
[2019-04-20] MEDS ORDERED: metroNIDAZOLE 500 MG TABLET ONE (14:39)
== END 2019-04-20 15:01 | disposition home or self-care (01) ==
LOC: ER 13:12
DX: K51.90 Ulcerative colitis, unspecified, without complications (principal); K21.9 Gastro-esophageal reflux disease without esophagitis; Z88.6 Allergy status to analgesic agent; Z88.5 Allergy status to narcotic agent
CPT/HCPCS: 36415; 80048; 85025; 96361; 96374; 96375; 99284; J2405; J3010; J7030

== ENCOUNTER 2019-05-04 14:31 | Emergency (ER) | payer BC ==
--- OUTSIDE RECORDS SUMMARY | 2019-05-04 14:33 | XMS REPORT ---
:1985 [facility] Webb [address] [place] [id number] Care Team Providers Name Role Phone Unavailable Unavailable Unavailable Problems This patient has no known problems. Allergies, Adverse Reactions, Alerts This patient has no known allergies or adverse reactions. Medications This patient has no known medications.
[2019-05-04 15:13] LABS: Absolute Lymphocytes (CBC) 1.9 K/uL (0.7-4.9); Basophils % 0.5 % (0-1.3); Eosinophils % 0.8 % (0-4.4); Hematocrit 40.4 % (39.6-49.0); Lymphocytes % 21.2 % (15.3-44.8); MPV 8.8 fL (7.6-11.3); RBC Red Blood Cell Count 4.48 M/uL (4.33-5.43)
[2019-05-04] MEDS ORDERED: ONDANSETRON 4 MG/2 ML VIAL ONE (15:23)
[2019-05-04] MEDS ORDERED: NA CHLORIDE 0.9% 1,000 ML ONE (15:23)
[2019-05-04] MEDS ORDERED: MORPHINE 4 MG/ML SYR ONE (15:23)
[2019-05-04 15:31] LABS: Albumin 3.6 g/dL (3.4-5.0); Bilirubin Direct 0.1 mg/dL (0-0.2); Bilirubin Total 0.3 mg/dL (0.2-1.0); Potassium 3.6 mmol/L (3.5-5.1); Protein, Total 7.4 g/dL (6.4-8.2)
--- NOTE | 2019-05-04 15:39 | ER ---
Nurse's Notes [facility] Name: Slava Biswas Age: 33 yrs Sex: Male : 1985 Arrival Date: 05/04/2019 Time: 14:34 Bed 14 Private MD: Cecilio Merida Diagnosis: Ulcerative colitis Presentation: 05/04 14:42 Presenting complaint: RLQ pain and N/D since this morning. Denies fever. Hx of hb ulcerative colitis. Transition of care: patient was not received from another setting of care. Onset of symptoms was May 04, 2019. Risk Assessment: Do you want to hurt yourself or someone else? Patient reports no desire to harm self or others. Initial Sepsis Screen: Does the patient meet any 2 criteria? No. Patient's initial sepsis screen is negative. Does the patient have a suspected source of infection? No. Patient's initial sepsis screen is negative. Care prior to arrival: None. 14:42 Method Of Arrival: Ambulatory hb 14:42 Acuity: TRACEE 3 hb Historical: - Allergies: 14:43 Codeine (Hives, rash); hb 14:43 Tylenol-Codeine #3; hb - Home Meds: 14:43 Prilosec 40 mg Oral cpDR 1 cap 2 times per day [Active]; Probiotic Oral [Active]; hb - PMHx: 14:43 Colitis; GERD; ulcertive colitis; hb - PSHx: 14:43 Hernia repair; hb - Immunization history:: Adult Immunizations up to date. - Social history:: Smoking status: Patient/guardian denies using tobacco. - Ebola Screening: : No symptoms or risks identified at this time. Screenin:44 Abuse screen: Denies threats or abuse. Denies injuries from another. Nutritional hb screening: No deficits noted. Tuberculosis screening: No symptoms or risk factors identified. Fall Risk None identified. Assessment: 15:00 General: Appears in no apparent distress. well groomed, well developed, well nourished, sg Behavior is calm, cooperative, appropriate for age. Pain: Complains of pain in abdomen Quality of pain is described as aching. Neuro: Level of Consciousness is awake, alert, obeys commands, Oriented to person, place, time, situation, International First Officer are equal bilaterally Moves all extremities. Full function Gait is steady, Speech is normal, Facial symmetry appears normal. Cardiovascular: Capillary refill is brisk in bilateral fingers Patient's skin is warm and dry. Chest pain is denied. Respiratory: Airway is patent Respiratory effort is even, unlabored, Respiratory pattern is regular, symmetrical. GI: Abdomen is round non-distended, obese, Bowel sounds present X 4 quads. Abd is soft and non tender X 4 quads. Reports nausea, normal bowel habits, tolerance of fluids, tolerance of food. : No signs and/or symptoms were reported regarding the genitourinary system. EENT: No signs and/or symptoms were reported regarding the EENT system. Derm: Skin is pink, warm \T\ dry. Musculoskeletal: Circulation, motion, and sensation intact. Range of motion: intact in all extremities, Swelling absent. Vital Signs: 14:43 BP 157 / 89; Pulse 84; Resp 16; Temp 97.7; Pulse Ox 98% ; Weight 117.93 kg; Height 5 hb ft. 10 in. (177.80 cm); Pain 7/10; 14:43 Body Mass Index 37.31 (117.93 kg, 177.80 cm) hb ED Course: 14:34 Patient arrived in ED. mr 14:34 Cecilio Merida MD is Private Physician. mr 14:41 Xuan Heard FNP is [facility]. nh 14:41 Ja Rausch MD is Attending Physician. nh 14:42 Triage completed. hb 14:43 Arm band placed on. hb 15:00 Patient has correct armband on for positive identification. Bed in low position. Side sg rails up X2. Pulse ox on. NIBP on. Warm blanket given. Head of bed elevated. 15:00 No provider procedures requiring assistance completed. Initial lab(s) drawn, by ED sg staff, sent to lab. IV inserted by Miles MCLEOD. Inserted saline lock: 20 gauge in right antecubital area, using aseptic technique. Blood collected. 15:02 Greg Pedro RN is Primary Nurse. sg 15:46 IV discontinued, intact, bleeding controlled, No redness/swelling at site. Pressure sg dressing applied. Administered Medications: 15:10 Drug: morphine 4 mg Route: IVP; Site: right antecubital; sg 15:50 Follow up: Response: No adverse reaction; Pain is decreased sg 15:10 Drug: Zofran 4 mg Route: IVP; Site: right antecubital; sg 15:50 Follow up: Response: No adverse reaction; Nausea is decreased sg 15:10 Drug: NS 0.9% 1000 ml Route: IV; Rate: 1 bolus; Site: right antecubital; sg 15:50 Follow up: Response: No adverse reaction; IV Status: Completed infusion; IV Intake: sg 990ml Intake: 15:50 IV: 990ml; Total: 990ml. Outcome: 15:39 Discharge ordered by MD. md 15:46 Discharged to home ambulatory, with family. sg 15:46 Condition: good 15:46 Discharge instructions given to patient, Instructed on discharge instructions, follow up and referral plans. medication usage, safety practices, Demonstrated understanding of instructions, follow-up care, medications, Prescriptions given X 3. 15:55 Patient left the ED. ms Signatures: Greg Pedro RN RN sg Xuan Heard, STEEL CHIPPER STEEL CHIPPER md Mary Carmen Eller mr ValverdeJosseline ms Esther Nice RN RN
--- NOTE | 2019-05-04 15:40 | EDPHYS ---
Physician Documentation [facility] Name: Slava Biswas Age: 33 yrs Sex: Male : 1985 Arrival Date: 05/04/2019 Time: 14:34 Bed 14 Private MD: Cecilio Merida ED Physician Ja Rausch HPI: 05/04 15:35 This 33 yrs old Male presents to ER via Ambulatory with complaints of nh Abdominal Pain. 15:35 The patient presents with abdominal pain that is diffuse. Onset: The symptoms/episode nh began/occurred yesterday. The symptoms do not radiate. Associated signs and symptoms: Pertinent positives: nausea. The symptoms are described as crampy. Modifying factors: The symptoms are alleviated by nothing, the symptoms are aggravated by nothing. Severity of pain: At its worst the pain was moderate just prior to arrival, in the emergency department the pain is unchanged. The patient has experienced similar episodes in the past, chronically, and the symptoms today are exactly the same, to previous UC flares. The patient has been recently seen at the [facility] Emergency Department, a couple of weeks ago, for similar complaints labs were performed. Historical: - Allergies: 14:43 Codeine (Hives, rash); hb 14:43 Tylenol-Codeine #3; hb - Home Meds: 14:43 Prilosec 40 mg Oral cpDR 1 cap 2 times per day [Active]; Probiotic Oral [Active]; hb - PMHx: 14:43 Colitis; GERD; ulcertive colitis; hb - PSHx: 14:43 Hernia repair; hb - Immunization history:: Adult Immunizations up to date. - Social history:: Smoking status: Patient/guardian denies using tobacco. - Ebola Screening: : No symptoms or risks identified at this time. ROS: 15:35 Constitutional: Negative for fever, chills, and weight loss, Eyes: Negative for injury, nh pain, redness, and discharge, ENT: Negative for injury, pain, and discharge, Neck: Negative for injury, pain, and swelling, Cardiovascular: Negative for chest pain, palpitations, and edema, Respiratory: Negative for shortness of breath, cough, wheezing, and pleuritic chest pain, Back: Negative for injury and pain, : Negative for injury, bleeding, discharge, and swelling, MS/Extremity: Negative for injury and deformity, Skin: Negative for injury, rash, and discoloration, Neuro: Negative for headache, weakness, numbness, tingling, and seizure, Psych: Negative for depression, anxiety, suicide ideation, homicidal ideation, and hallucinations, Allergy/Immunology: Negative for hives, rash, and allergies, Endocrine: Negative for neck swelling, polydipsia, polyuria, polyphagia, and marked weight changes, Hematologic/Lymphatic: Negative for swollen nodes, abnormal bleeding, and unusual bruising. 15:35 Abdomen/GI: Positive for abdominal pain, nausea, Negative for vomiting, diarrhea. Exam: 15:35 Constitutional: This is a well developed, well nourished patient who is awake, alert, nh and in no acute distress. Head/Face: Normocephalic, atraumatic. Eyes: Pupils equal round and reactive to light, extra-ocular motions intact. Lids and lashes normal. Conjunctiva and sclera are non-icteric and not injected. Cornea within normal limits. Periorbital areas with no swelling, redness, or edema. ENT: Nares patent. No nasal discharge, no septal abnormalities noted. Tympanic membranes are normal and external auditory canals are clear. Oropharynx with no redness, swelling, or masses, exudates, or evidence of obstruction, uvula midline. Mucous membranes moist. Neck: Trachea midline, no thyromegaly or masses palpated, and no cervical lymphadenopathy. Supple, full range of motion without nuchal rigidity, or vertebral point tenderness. No Meningismus. Chest/axilla: Normal chest wall appearance and motion. Nontender with no deformity. No lesions are appreciated. Cardiovascular: Regular rate and rhythm with a normal S1 and S2. No gallops, murmurs, or rubs. Normal PMI, no JVD. No pulse deficits. Respiratory: Lungs have equal breath sounds bilaterally, clear to auscultation and percussion. No rales, rhonchi or wheezes noted. No increased work of breathing, no retractions or nasal flaring. Back: No spinal tenderness. No costovertebral tenderness. Full range of motion. Skin: Warm, dry with normal turgor. Normal color with no rashes, no lesions, and no evidence of cellulitis. MS/ Extremity: Pulses equal, no cyanosis. Neurovascular intact. Full, normal range of motion. Neuro: Awake and alert, GCS 15, oriented to person, place, time, and situation. Cranial nerves II-XII grossly intact. Motor strength 5/5 in all extremities. Sensory grossly intact. Cerebellar exam normal. Normal gait. Psych: Awake, alert, with orientation to person, place and time. Behavior, mood, and affect are within normal limits. 15:35 Abdomen/GI: Inspection: abdomen appears normal, Bowel sounds: normal, Palpation: moderate abdominal tenderness, in all quadrants. Vital Signs: 14:43 BP 157 / 89; Pulse 84; Resp 16; Temp 97.7; Pulse Ox 98% ; Weight 117.93 kg; Height 5 hb ft. 10 in. (177.80 cm); Pain 7/10; 14:43 Body Mass Index 37.31 (117.93 kg, 177.80 cm) hb MDM: 14:[address] 15:35 Data reviewed: vital signs, nurses notes, lab test result(s), I have discussed the ct patient's presentation/case with the attending Emergency Department Physician; and as a result, I will discharge patient. Counseling: I had a detailed discussion with the patient and/or guardian regarding: the historical points, exam findings, and any diagnostic results supporting the discharge/admit diagnosis, lab results, the need for outpatient follow up, to return to the emergency department if symptoms worsen or persist or if there are any questions or concerns that arise at home. 05/04 14:47 Order name: Basic Metabolic Panel; Complete Time: 15:34 ct 05/04 14:47 Order name: CBC with Diff; Complete Time: 15:34 ct 05/04 14:47 Order name: Creatinine for Radiology; Complete Time: 15:34 ct 05/04 14:47 Order name: Hepatic Function; Complete Time: 15:34 ct 05/04 14:47 Order name: Lipase; Complete Time: 15:34 ct 05/04 14:47 Order name: IV Saline Lock; Complete Time: 15:12 ct 05/04 14:47 Order name: Labs collected and sent; Complete Time: 15:12 ct Administered Medications: 15:10 Drug: morphine 4 mg Route: IVP; Site: right antecubital; sg 15:50 Follow up: Response: No adverse reaction; Pain is decreased sg 15:10 Drug: Zofran 4 mg Route: IVP; Site: right antecubital; sg 15:50 Follow up: Response: No adverse reaction; Nausea is decreased sg 15:10 Drug: NS 0.9% 1000 ml Route: IV; Rate: 1 bolus; Site: right antecubital; sg 15:50 Follow up: Response: No adverse reaction; IV Status: Completed infusion; IV Intake: sg 990ml Disposition: 05/04/19 15:39 Discharged to Home. Impression: Ulcerative colitis. - Condition is Stable. - Prescriptions for Flagyl 500 mg Oral Tablet - take 1 tablet by ORAL route every 12 hours for 7 days; 14 tablet. Cipro 500 mg Oral Tablet - take 1 tablet by ORAL route every 12 hours for 7 days; 14 tablet. Tramadol 50 mg Oral Tablet - take 1 tablet by ORAL route every 8 hours as needed; 30 tablet. - Work release form, Medication Reconciliation Form, Thank You Letter, Antibiotic Education, Prescription Opioid Use form. - Follow up: Private Physician; When: 2 - 3 days; Reason: Recheck today's complaints. - Problem is new. - Symptoms are unchanged. Signatures: Dispatcher [employer] EDMS Greg Pedro RN RN sg Xuan Heard, REHABILITATION LIAISON REHABILITATION LIAISON ct Josseline Valverde ms, Heather, RN RN Corrections: (The following items were deleted from the chart) 15:48 15:39 05/04/2019 15:39 Discharged to Home. Impression: Ulcerative colitis. Condition is sg Stable. Forms are Medication Reconciliation Form, Thank You Letter, Antibiotic Education, Prescription Opioid Use. Follow up: Private Physician; When: 2 - 3 days; Reason: Recheck today's complaints. Problem is new. Symptoms are unchanged. ct 15:55 15:48 05/04/2019 15:39 Discharged to Home. Impression: Ulcerative colitis. Condition is ms Stable. Prescriptions for Flagyl 500 mg Oral Tablet - take 1 tablet by ORAL route every 12 hours for 7 days; 14 tablet, Cipro 500 mg Oral Tablet - take 1 tablet by ORAL route every 12 hours for 7 days; 14 tablet, Tramadol 50 mg Oral Tablet - take 1 tablet by ORAL route every 8 hours as needed; 30 tablet. and Forms are Medication Reconciliation Form, Thank You Letter, Antibiotic Education, Prescription Opioid Use, Work release form. Follow up: Private Physician; When: 2 - 3 days; Reason: Recheck today's complaints. Problem is new. Symptoms are unchanged. sg
== END 2019-05-04 15:55 | disposition home or self-care (01) ==
LOC: ER 14:31
DX: K51.90 Ulcerative colitis, unspecified, without complications (principal); K21.9 Gastro-esophageal reflux disease without esophagitis; Z88.5 Allergy status to narcotic agent
CPT/HCPCS: 36415; 80048; 80076; 83690; 85025; 96361; 96374; 96375; 99284; J2405; J7030

== ENCOUNTER 2019-05-26 10:47 | Emergency (ER) | payer BC ==
--- OUTSIDE RECORDS SUMMARY | 2019-05-26 10:57 | XMS REPORT ---
:1985 [facility] Al Dr. Webb [address] [place] [id number] Care Team Providers Name Role Phone Unavailable Unavailable Unavailable Problems This patient has no known problems. Allergies, Adverse Reactions, Alerts This patient has no known allergies or adverse reactions. Medications This patient has no known medications.
[2019-05-26] MEDS ORDERED: NA CHLORIDE 0.9% 1,000 ML ONE (12:07)
[2019-05-26] MEDS ORDERED: CIPROFLOXACIN 400mg IV 400 MG/200 ML BAG IV ONE (12:07)
[2019-05-26] MEDS ORDERED: ONDANSETRON 4 MG/2 ML VIAL ONE (12:07)
[2019-05-26] MEDS ORDERED: FAMOTIDINE 20 MG/2 ML VIAL IV ONE (12:07)
[2019-05-26] MEDS ORDERED: MORPHINE 4 MG/ML SYR ONE ×2 (12:07→12:48)
[2019-05-26] MEDS ORDERED: METRONIDAZOLE 500mg IVPB 500 MG/100 ML BAG IV ONE (12:07)
[2019-05-26 12:14] LABS: Absolute Lymphocytes (CBC) 1.1 K/uL (0.7-4.9); Basophils % 0.6 % (0-1.3); Hematocrit 42.3 % (39.6-49.0); Lymphocytes % 14.5 % (15.3-44.8); RBC Red Blood Cell Count 4.75 M/uL (4.33-5.43)
[2019-05-26 12:33] LABS: Albumin 3.8 g/dL (3.4-5.0); Bilirubin Direct 0.1 mg/dL (0-0.2); Bilirubin Total 0.5 mg/dL (0.2-1.0); Potassium 3.8 mmol/L (3.5-5.1); Protein, Total 7.6 g/dL (6.4-8.2)
--- NOTE | 2019-05-26 12:48 | RAD REPORT ---
EXAM DESCRIPTION: RAD - Abdomen Acute Series - 05/26/2019 12:34 pm CLINICAL HISTORY: Abdominal pain, history of ulcerative colitis COMPARISON: CT study June 2018, KUB October 2016 FINDINGS: Lungs are clear. Heart size and pulmonary vasculature are normal. No pleural effusion, pne umothorax or other acute cardiopulmonary process seen. Bowel gas pattern is nonspecific. Air and stool are scattered in nondilated colon. A few prominent sm all bowel loops are present. No bowel obstruction, free air or pneumatosis seen. Phleboliths seen in the lower pelvis. A few surgical clips are seen along the lower left pelvis. No suspicious calcificat ions. No other suspicious for significant findings. IMPRESSION: Minimal prominence of the small bowel pattern that could represent ileus or gastroenteri tis. No acute colon finding evident from this examination. No obstruction, free air or emergent finding.
--- NOTE | 2019-05-26 12:59 | EDPHYS ---
Physician Documentation [facility] Name: Slava Biswas Age: 33 yrs Sex: Male : 1985 Arrival Date: 05/26/2019 Time: 10:52 Bed 14 Private MD: Cecilio Merida ED Physician Rei Noguera HPI: 05/26 11:25 This 33 yrs old Male presents to ER via Ambulatory with complaints of Flare umang Up, Abdominal Pain. 11:25 The patient presents with abdominal pain in the lower abdomen, right lower quadrant. umang Onset: The symptoms/episode began/occurred 2 day(s) ago. The symptoms do not radiate. Associated signs and symptoms: Pertinent positives: diarrhea, nausea. The symptoms are described as burning, crampy. Modifying factors: The symptoms are alleviated by nothing, the symptoms are aggravated by nothing. Severity of pain: At its worst the pain was mild moderate in the emergency department the pain is unchanged. The patient has experienced similar episodes in the past, multiple times. Historical: - Allergies: 10:57 Codeine (Hives, rash); 10:57 Tylenol-Codeine #3; hj - PMHx: 10:57 Colitis; GERD; ulcertive colitis; hj - PSHx: 10:57 Hernia repair; hj - Immunization history:: Adult Immunizations unknown. - Family history:: not pertinent. - Social history:: Smoking status: Patient/guardian denies using tobacco. - Ebola Screening: : No symptoms or risks identified at this time. ROS: 11:25 Constitutional: Negative for fever, chills, and weight loss, Eyes: Negative for injury, umang pain, redness, and discharge, ENT: Negative for injury, pain, and discharge, Neck: Negative for injury, pain, and swelling, Cardiovascular: Negative for chest pain, palpitations, and edema, Respiratory: Negative for shortness of breath, cough, wheezing, and pleuritic chest pain, Back: Negative for injury and pain, : Negative for injury, bleeding, discharge, and swelling, MS/Extremity: Negative for injury and deformity, Skin: Negative for injury, rash, and discoloration, Neuro: Negative for headache, weakness, numbness, tingling, and seizure, Psych: Negative for depression, anxiety, suicide ideation, homicidal ideation, and hallucinations, Allergy/Immunology: Negative for hives, rash, and allergies, Endocrine: Negative for neck swelling, polydipsia, polyuria, polyphagia, and marked weight changes, Hematologic/Lymphatic: Negative for swollen nodes, abnormal bleeding, and unusual bruising. 11:25 Abdomen/GI: Positive for abdominal pain, nausea, diarrhea, of the right lower quadrant. Exam: 11:25 Constitutional: This is a well developed, well nourished patient who is awake, alert, umang and in no acute distress. Head/Face: Normocephalic, atraumatic. Eyes: Pupils equal round and reactive to light, extra-ocular motions intact. Lids and lashes normal. Conjunctiva and sclera are non-icteric and not injected. Cornea within normal limits. Periorbital areas with no swelling, redness, or edema. ENT: Nares patent. No nasal discharge, no septal abnormalities noted. Tympanic membranes are normal and external auditory canals are clear. Oropharynx with no redness, swelling, or masses, exudates, or evidence of obstruction, uvula midline. Mucous membranes moist. Neck: Trachea midline, no thyromegaly or masses palpated, and no cervical lymphadenopathy. Supple, full range of motion without nuchal rigidity, or vertebral point tenderness. No Meningismus. Chest/axilla: Normal chest wall appearance and motion. Nontender with no deformity. No lesions are appreciated. Respiratory: Lungs have equal breath sounds bilaterally, clear to auscultation and percussion. No rales, rhonchi or wheezes noted. No increased work of breathing, no retractions or nasal flaring. Back: No spinal tenderness. No costovertebral tenderness. Full range of motion. MS/ Extremity: Pulses equal, no cyanosis. Neurovascular intact. Full, normal range of motion. Neuro: Awake and alert, GCS 15, oriented to person, place, time, and situation. Cranial nerves II-XII grossly intact. Motor strength 5/5 in all extremities. Sensory grossly intact. Cerebellar exam normal. Normal gait. Psych: Awake, alert, with orientation to person, place and time. Behavior, mood, and affect are within normal limits. 11:25 Cardiovascular: Rate: tachycardic, Rhythm: regular, Pulses: Pulses are 4+ in bilateral radial, brachial, femoral, popliteal, posterior tibial and and dorsalis pedis arteries.. Heart sounds: normal, Edema: is not appreciated, JVD: is not appreciated. Vital Signs: 10:58 BP 141 / 98; Pulse 107; Resp 18; Temp 99.2(TE); Pulse Ox 97% on R/A; Weight 117.93 kg; hj Height 5 ft. 10 in. (177.80 cm); Pain 8/10; 12:00 BP 128 / 81; Pulse 84; Resp 18; Pulse Ox 99% on R/A; ph 12:59 BP 122 / 73; Pulse 72; Resp 18; Pulse Ox 100% on R/A; ph 13:42 BP 118 / 68; Pulse 71; Resp 18; Temp 98.2; Pulse Ox 98% on R/A; Pain 4/10; ph 10:58 Body Mass Index 37.31 (117.93 kg, 177.80 cm) MDM: 11:02 Patient medically screened. [facility] 11:44 Data reviewed: vital signs, nurses notes, lab test result(s), radiologic studies, plain umang films. 05/26 11:25 Order name: Basic Metabolic Panel; Complete Time: 12:44 [facility] 05/26 11:25 Order name: CBC with Diff; Complete Time: 12:44 [facility] 05/26 11:25 Order name: Creatinine for Radiology [facility] 05/26 11:25 Order name: Hepatic Function; Complete Time: 12:44 [facility] 05/26 11:25 Order name: Lipase; Complete Time: 12:44 [facility] 05/26 11:58 Order name: Urine Dipstick--Ancillary (enter results) 05/26 11:43 Order name: Abdomen Acute Series XRAY; Complete Time: 12:57 [facility] 05/26 11:25 Order name: IV Saline Lock; Complete Time: 12:04 [facility] 05/26 11:25 Order name: Labs collected and sent; Complete Time: 12:04 [facility] 05/26 11:25 Order name: Urine Dipstick-Ancillary (obtain specimen); Complete Time: 11:50 [facility] Administered Medications: 12:18 Drug: Zofran 4 mg Route: IVP; Site: right antecubital; ph 13:41 Follow up: Response: No adverse reaction; Nausea is decreased ph 12:20 Drug: morphine 4 mg Route: IVP; Site: right antecubital; ph 12:30 Follow up: Response: No adverse reaction; Pain is decreased ph 12:20 Drug: Pepcid 20 mg Route: IVP; Site: right antecubital; ph 13:41 Follow up: Response: No adverse reaction; Nausea is decreased ph 12:51 Drug: NS 0.9% 1000 ml Route: IV; Rate: 1 bolus; Site: right antecubital; ph 13:40 Follow up: Response: No adverse reaction; IV Status: Completed infusion; IV Intake: ph 1000ml 12:52 Drug: Cipro 400 mg Volume: 200 ml; Route: IVPB; Infused Over: 60 mins; Site: right ph antecubital; 13:40 Follow up: Response: No adverse reaction; IV Status: Completed infusion ph 12:52 Drug: Flagyl 500 mg Volume: 100 ml; Route: IVPB; Rate: 200 ml/hr; Infused Over: 30 ph mins; Site: right antecubital; 13:25 Follow up: Response: No adverse reaction; IV Status: Completed infusion ph 12:53 Drug: morphine 4 mg {Note: RASS 0.} Route: IVP; Site: right antecubital; ph 13:42 Follow up: Response: No adverse reaction; Pain is decreased ph Disposition: 05/26/19 12:58 Discharged to Home. Impression: Abdominal tenderness, Other ulcerative colitis, Nausea, Diarrhea, unspecified. - Condition is Stable. - Discharge Instructions: Abdominal Pain, Adult, Allergies, Adult, Food Choices to Help Relieve Diarrhea, Adult, Chronic Diarrhea, Diarrhea, Adult, Nausea and Vomiting, Adult, Nausea, Adult. - Prescriptions for Bentyl 20 mg Oral Tablet - take 1 tablet by ORAL route every 6 hours As needed; 20 tablet. Flagyl 500 mg Oral Tablet - take 1 tablet by ORAL route every 6 hours for 7 days; 28 tablet. Pepcid 20 mg Oral Tablet - take 1 tablet by ORAL route every 12 hours for 10 days; 20 tablet. Ultram 50 mg Oral Tablet - take 1 tablet by ORAL route every 6 hours As needed; 26 tablet. Cipro 500 mg Oral Tablet - take 1 tablet by ORAL route every 12 hours for 7 days; 14 tablet. - Medication Reconciliation Form, Thank You Letter, Antibiotic Education, Prescription Opioid Use form. - Follow up: Cecilio Merida; When: 2 - 3 days; Reason: Recheck today's complaints, Continuance of care, Re-evaluation by your physician. Follow up: Pastor Marquez; When: 2 - 3 days; Reason: Recheck today's complaints, Re-evaluation by your physician. - Problem is new. - Symptoms have improved. Signatures: Dispatcher [employer] [facility] Rei Noguera MD MD cha Hall, Patricia, RN RN Rodri Suazo, RN RN Corrections: (The following items were deleted from the chart) 12:06 11:29 Abdomen Pelvis W [id number].RAD.BRZ ordered. [facility] 13:44 12:58 05/26/2019 12:58 Discharged to Home. Impression: Abdominal tenderness; Other ph ulcerative colitis; Nausea; Diarrhea, unspecified. Condition is Stable. Discharge Instructions: Abdominal Pain, Adult, Allergies, Adult, Food Choices to Help Relieve Diarrhea, Adult, Chronic Diarrhea, Diarrhea, Adult, Nausea and Vomiting, Adult, Nausea, Adult. Prescriptions for Bentyl 20 mg Oral Tablet - take 1 tablet by ORAL route every 6 hours As needed; 20 tablet, Flagyl 500 mg Oral Tablet - take 1 tablet by ORAL route every 6 hours for 7 days; 28 tablet, Pepcid 20 mg Oral Tablet - take 1 tablet by ORAL route every 12 hours for 10 days; 20 tablet, Ultram 50 mg Oral Tablet - take 1 tablet by ORAL route every 6 hours As needed; 26 tablet, Cipro 500 mg Oral Tablet - take 1 tablet by ORAL route every 12 hours for 7 days; 14 tablet. and Forms are Medication Reconciliation Form, Thank You Letter, Antibiotic Education, Prescription Opioid Use. Follow up: Cecilio Merida; When: 2 - 3 days; Reason: Recheck today's complaints, Continuance of care, Re-evaluation by your physician. Follow up: Pastor Marquez; When: 2 - 3 days; Reason: Recheck today's complaints, Re-evaluation by your physician. Problem is new. Symptoms have improved. umang
--- NOTE | 2019-05-26 12:59 | ER ---
Nurse's Notes [facility] Name: Slava Biswas Age: 33 yrs Sex: Male : 1985 Arrival Date: 05/26/2019 Time: 10:52 Bed 14 Private MD: Cecilio Merida Diagnosis: Abdominal tenderness;Other ulcerative colitis;Nausea;Diarrhea, unspecified Presentation: 05/26 10:56 Presenting complaint: Patient states: keerthi been having flare up of my ulcerative colitis hj since 1 am today; reports nausea and diarrhea; pain is 7/10; denies fever;. Transition of care: patient was not received from another setting of care. Onset of symptoms was May 26, 2019. Risk Assessment: Do you want to hurt yourself or someone else? Patient reports no desire to harm self or others. Initial Sepsis Screen: Does the patient meet any 2 criteria? No. Patient's initial sepsis screen is negative. Does the patient have a suspected source of infection? No. Patient's initial sepsis screen is negative. Care prior to arrival: None. 10:56 Method Of Arrival: Ambulatory 10:56 Acuity: TRACEE 3 hj Historical: - Allergies: 10:57 Codeine (Hives, rash); 10:57 Tylenol-Codeine #3; hj - PMHx: 10:57 Colitis; GERD; ulcertive colitis; hj - PSHx: 10:57 Hernia repair; hj - Immunization history:: Adult Immunizations unknown. - Family history:: not pertinent. - Social history:: Smoking status: Patient/guardian denies using tobacco. - Ebola Screening: : No symptoms or risks identified at this time. Screenin:28 Abuse screen:. Nutritional screening: No deficits noted. Tuberculosis screening: ph Tuberculosis screening: No symptoms or risk factors identified. Fall Risk None identified. Assessment: 11:30 General: Appears in no apparent distress. comfortable, obese, well groomed, Behavior is ph calm, cooperative, appropriate for age, Reports chills for fever for. Pain: Complains of pain in right lower quadrant. Neuro: Level of Consciousness is awake, alert, obeys commands, Oriented to person, place, time, situation. Cardiovascular: Capillary refill < 3 seconds in bilateral fingers Patient's skin is warm and dry. Respiratory: Airway is patent Respiratory effort is even, unlabored. GI: Abdomen is round non-distended, Bowel sounds present X 4 quads. Abd is soft X 4 quads Abdomen is tender to palpation in right lower quadrant Reports lower abdominal pain, diarrhea, nausea, Patient currently denies vomiting. Derm: Skin is intact, is healthy with good turgor, Skin is pink, warm \T\ dry. Musculoskeletal: Circulation, motion, and sensation intact. Range of motion: intact in all extremities. 12:30 Reassessment: Patient appears in no apparent distress at this time. Patient and/or ph family updated on plan of care and expected duration. Pain level reassessed. Patient is alert, oriented x 3, equal unlabored respirations, skin warm/dry/pink. Pt reports that pain was relieved after IV pain medication, denies nausea at this time. 12:59 Reassessment: Patient appears in no apparent distress at this time. Patient and/or ph family updated on plan of care and expected duration. Pain level reassessed. D/C pending completion of iv antibiotics and fluids. Vital Signs: 10:58 BP 141 / 98; Pulse 107; Resp 18; Temp 99.2(TE); Pulse Ox 97% on R/A; Weight 117.93 kg; hj Height 5 ft. 10 in. (177.80 cm); Pain 8/10; 12:00 BP 128 / 81; Pulse 84; Resp 18; Pulse Ox 99% on R/A; ph 12:59 BP 122 / 73; Pulse 72; Resp 18; Pulse Ox 100% on R/A; ph 13:42 BP 118 / 68; Pulse 71; Resp 18; Temp 98.2; Pulse Ox 98% on R/A; Pain 4/10; ph 10:58 Body Mass Index 37.31 (117.93 kg, 177.80 cm) ED Course: 10:52 Patient arrived in ED. ag5 10:53 Cecliio Merida MD is Private Physician. ag5 10:57 Triage completed. hj 10:58 Arm band placed on left wrist. 11:02 Rei Noguera MD is Attending Physician. [facility] 11:13 Ros Ruff RN is Primary Nurse. ph 12:03 Inserted saline lock: 20 gauge in right antecubital area, using aseptic technique. ar5 Blood collected. 12:28 Patient has correct armband on for positive identification. Placed in gown. Bed in low ph position. Call light in reach. Side rails up X 1. Pulse ox on. NIBP on. Door closed. Noise minimized. Warm blanket given. Head of bed elevated. 12:34 Abdomen Acute Series XRAY In Process Unspecified. EDMS 12:58 Cecilio Merida MD is Referral Physician. umang 12:58 Pastor Marquez MD is Referral Physician. umang 13:43 No provider procedures requiring assistance completed. IV discontinued, intact, ph bleeding controlled, No redness/swelling at site. Pressure dressing applied. Administered Medications: 12:18 Drug: Zofran 4 mg Route: IVP; Site: right antecubital; ph 13:41 Follow up: Response: No adverse reaction; Nausea is decreased ph 12:20 Drug: morphine 4 mg Route: IVP; Site: right antecubital; ph 12:30 Follow up: Response: No adverse reaction; Pain is decreased ph 12:20 Drug: Pepcid 20 mg Route: IVP; Site: right antecubital; ph 13:41 Follow up: Response: No adverse reaction; Nausea is decreased ph 12:51 Drug: NS 0.9% 1000 ml Route: IV; Rate: 1 bolus; Site: right antecubital; ph 13:40 Follow up: Response: No adverse reaction; IV Status: Completed infusion; IV Intake: ph 1000ml 12:52 Drug: Cipro 400 mg Volume: 200 ml; Route: IVPB; Infused Over: 60 mins; Site: right ph antecubital; 13:40 Follow up: Response: No adverse reaction; IV Status: Completed infusion ph 12:52 Drug: Flagyl 500 mg Volume: 100 ml; Route: IVPB; Rate: 200 ml/hr; Infused Over: 30 ph mins; Site: right antecubital; 13:25 Follow up: Response: No adverse reaction; IV Status: Completed infusion ph 12:53 Drug: morphine 4 mg {Note: RASS 0.} Route: IVP; Site: right antecubital; ph 13:42 Follow up: Response: No adverse reaction; Pain is decreased ph Intake: 13:40 IV: 1000ml; Total: 1000ml. ph Outcome: 12:58 Discharge ordered by . umang 13:43 Discharged to home ambulatory. ph 13:43 Condition: improved 13:43 Discharge instructions given to patient, Instructed on discharge instructions, follow up and referral plans. medication usage, Demonstrated understanding of instructions, follow-up care, medications, Prescriptions given X 5 13:44 Patient left the ED. ph Signatures: Dispatcher [employer] EDRei Mendez MD MD cha Hall, Patricia RN RN Rodri Arriaga RN RN hj Robles, Autumn ar5 Rosita Hair ag5
[2019-05-26 13:05] LABS: Urine Blood NEGATIVE (NEG); Urine Glucose NEGATIVE (NEG); Urine Protein NEGATIVE (NEG)
== END 2019-05-26 13:44 | disposition home or self-care (01) ==
LOC: ER 10:47
DX: K51.80 Other ulcerative colitis without complications (principal); K21.9 Gastro-esophageal reflux disease without esophagitis
CPT/HCPCS: 96365; 96368; 85025; 80048; 36415; 80076; 81003; 83690; 74022; 96375; 99284; J7030; J2405; J0744

== ENCOUNTER 2019-06-30 11:26 | Emergency (ER) | payer BC ==
--- OUTSIDE RECORDS SUMMARY | 2019-06-30 11:50 | XMS REPORT ---
:1985 [facility] [address] [place] [id number] Care Team Providers Name Role Phone Unavailable Unavailable Unavailable Problems This patient has no known problems. Allergies, Adverse Reactions, Alerts This patient has no known allergies or adverse reactions. Medications This patient has no known medications.
[2019-06-30 15:57] LABS: Absolute Lymphocytes (CBC) 1.9 K/uL (0.7-4.9); Basophils % 0.9 % (0-1.3); Hematocrit 42.6 % (39.6-49.0); Lymphocytes % 18.7 % (15.3-44.8); MPV 8.7 fL (7.6-11.3); RBC Red Blood Cell Count 4.75 M/uL (4.33-5.43)
[2019-06-30] MEDS ORDERED: CIPROFLOXACIN HCL 500 MG TAB ONE (16:16)
[2019-06-30] MEDS ORDERED: metroNIDAZOLE 500 MG TABLET ONE (16:16)
[2019-06-30] MEDS ORDERED: ONDANSETRON 4 MG/2 ML VIAL ONE (16:17)
[2019-06-30] MEDS ORDERED: MORPHINE 4 MG/ML SYR ONE ×2 (16:17→17:37)
[2019-06-30 17:25] LABS: ALT/SGPT 27 U/L (12-78); AST/SGOT 25 U/L (15-37); Albumin 3.8 g/dL (3.4-5.0); Alkaline Phosphatase 75 U/L (45-117); BUN Blood Urea Nitrogen 11 mg/dL (7-18); Bicarbonate 26 mmol/L (21-32); Bilirubin Direct < 0.1 mg/dL (0-0.2); Bilirubin Total 0.3 mg/dL (0.2-1.0); Glucose Level 98 mg/dL (74-106); Lipase 228 U/L (73-393); Potassium 4.1 mmol/L (3.5-5.1); Protein, Total 7.5 g/dL (6.4-8.2); Sodium Level 140 mmol/L (136-145)
--- NOTE | 2019-06-30 17:38 | ER ---
Nurse's Notes [facility] Name: Slava Biswas Age: 34 yrs Sex: Male : 1985 Arrival Date: 06/30/2019 Time: 11:28 Bed 13 Private MD: Cecilio Merida Diagnosis: Ulcerative colitis;Lower abdominal pain, unspecified Presentation: 06/30 11:32 Presenting complaint: Patient states: "I'm having a flare up with my ulcerative colitis sv on the RLQ and diarrhea, started today when I got to work.". Transition of care: patient was not received from another setting of care. Onset of symptoms was June 30, 2019. Risk Assessment: Do you want to hurt yourself or someone else? Patient reports no desire to harm self or others. Care prior to arrival: None. 11:32 Method Of Arrival: Ambulatory sv 11:32 Acuity: TRACEE 3 sv 18:00 Initial Sepsis Screen: Does the patient meet any 2 criteria? No. Patient's initial iw sepsis screen is negative. Does the patient have a suspected source of infection? No. Patient's initial sepsis screen is negative. Triage Assessment: 11:32 General: Appears in no apparent distress. uncomfortable, Behavior is calm, cooperative, sv appropriate for age. Pain: Complains of pain in right lower quadrant. Neuro: Level of Consciousness is awake, alert, obeys commands, Gait is steady. Respiratory: Respiratory effort is even, unlabored, Respiratory pattern is regular, symmetrical. GI: Reports lower abdominal pain, diarrhea. Historical: - Allergies: 11:33 Codeine (Hives, rash); sv - PMHx: 11:33 Colitis; GERD; ulcertive colitis; sv - PSHx: 11:33 Hernia repair; sv - Immunization history:: Adult Immunizations unknown. - Social history:: Smoking status: unknown. - Ebola Screening: : Patient negative for fever greater than or equal to 101.5 degrees Fahrenheit, and additional compatible Ebola Virus Disease symptoms Patient denies exposure to infectious person Patient denies travel to an Ebola-affected area in the 21 days before illness onset No symptoms or risks identified at this time. Screenin:50 Abuse screen: Denies threats or abuse. Denies injuries from another. Nutritional iw screening: No deficits noted. Tuberculosis screening: No symptoms or risk factors identified. Fall Risk IV access (20 points). Assessment: 16:30 General: Appears in no apparent distress. Behavior is calm, cooperative. Pain: iw Complains of pain in left lower quadrant and right lower quadrant. Neuro: Level of Consciousness is awake, alert, obeys commands, Oriented to person, place, time, situation, Moves all extremities. Full function. Cardiovascular: Patient's skin is warm and dry. Respiratory: Respiratory effort is even, unlabored, Respiratory pattern is regular, symmetrical. GI: Bowel sounds present X 4 quads. Abd is soft X 4 quads Abdomen is tender to palpation in suprapubic area, right lower quadrant and left lower quadrant Reports lower abdominal pain. : Denies burning with urination. Derm: Skin is intact, is healthy with good turgor. Musculoskeletal: Range of motion: intact in all extremities. 17:30 Reassessment: Patient appears in no apparent distress at this time. Patient and/or iw family updated on plan of care and expected duration. Pain level reassessed. Patient is alert, oriented x 3, equal unlabored respirations, skin warm/dry/pink. Patient states symptoms have not improved. Vital Signs: 11:33 BP 140 / 98; Pulse 98; Resp 16; Temp 99(O); Pulse Ox 97% ; Weight 117.93 kg; Height 5 sv ft. 10 in. (177.80 cm); Pain 7/10; 17:31 BP 123 / 77; Pulse 69; Resp 16; Pulse Ox 98% on R/A; iw 11:33 Body Mass Index 37.31 (117.93 kg, 177.80 cm) sv ED Course: 11:28 Patient arrived in ED. as 11:28 Cecilio Merida MD is Private Physician. as 11:33 Triage completed. sv 11:33 Arm band placed on. sv 15:12 Luis Carlos Thomas PA is PHCP. jr8 15:12 Rei Noguera MD is Attending Physician. jr8 15:38 Jolene Ware, HARSHA is Primary Nurse. iw 15:49 Initial lab(s) drawn, by me, sent to lab. Inserted saline lock: 20 gauge in right iw antecubital area, using aseptic technique. Blood collected. 16:30 Patient has correct armband on for positive identification. iw 17:36 Pastor Marquez MD is Referral Physician. jr8 18:02 No provider procedures requiring assistance completed. IV discontinued, intact, iw bleeding controlled, No redness/swelling at site. Pressure dressing applied. Administered Medications: 16:29 Drug: Zofran 4 mg Route: IVP; Site: right antecubital; iw 17:00 Follow up: Response: No adverse reaction iw 16:29 Drug: morphine 4 mg {Note: RASS:0.} Route: IVP; Site: right antecubital; iw 17:00 Follow up: Response: No adverse reaction iw 16:29 Drug: Cipro 500 mg Route: PO; iw 17:00 Follow up: Response: No adverse reaction iw 16:29 Drug: Flagyl 500 mg Route: PO; iw 17:00 Follow up: Response: No adverse reaction iw 17:48 Drug: morphine 4 mg Route: IVP; Site: right antecubital; iw 18:02 Follow up: Response: No adverse reaction; Pain is decreased iw Outcome: 17:37 Discharge ordered by . jr8 18:03 Discharged to home ambulatory. iw 18:03 Condition: good 18:03 Discharge instructions given to patient, Instructed on discharge instructions, follow up and referral plans. medication usage, Demonstrated understanding of instructions, follow-up care, medications, Prescriptions given X 4. 18:04 Patient left the ED. iw Signatures: Sherrie Ibarra, RN Malini Villegas Irene, RN RN Luis Carlos Thomas, BENJI LEBLANC jr8
--- NOTE | 2019-06-30 17:38 | EDPHYS ---
Physician Documentation [facility] Name: Slava Biswas Age: 34 yrs Sex: Male : 1985 Arrival Date: 06/30/2019 Time: 11:28 Bed 13 Private MD: Cecilio Merida ED Physician Rei Noguera HPI: 06/30 16:05 This 34 yrs old Male presents to ER via Ambulatory with complaints of jr8 Abdominal Pain - ulcerative colitis. 16:05 The patient presents with abdominal pain in the lower abdomen, right lower quadrant. jr8 Onset: The symptoms/episode began/occurred this morning. The symptoms do not radiate. Associated signs and symptoms: Pertinent negatives: nausea, vomiting, and diarrhea. The symptoms are described as sharp. Severity of pain: At its worst the pain was mild this morning, in the emergency department the pain is unchanged. The patient has experienced similar episodes in the past, chronically. Abd pain since this morning, pt has UC, states pain is similar to previous exacerbations. . Historical: - Allergies: 11:33 Codeine (Hives, rash); sv - PMHx: 11:33 Colitis; GERD; ulcertive colitis; sv - PSHx: 11:33 Hernia repair; sv - Immunization history:: Adult Immunizations unknown. - Social history:: Smoking status: unknown. - Ebola Screening: : Patient negative for fever greater than or equal to 101.5 degrees Fahrenheit, and additional compatible Ebola Virus Disease symptoms Patient denies exposure to infectious person Patient denies travel to an Ebola-affected area in the 21 days before illness onset No symptoms or risks identified at this time. ROS: 16:05 Constitutional: Negative for fever, chills, and weight loss, Eyes: Negative for injury, jr8 pain, redness, and discharge, ENT: Negative for injury, pain, and discharge, Neck: Negative for injury, pain, and swelling, Cardiovascular: Negative for chest pain, palpitations, and edema, Respiratory: Negative for shortness of breath, cough, wheezing, and pleuritic chest pain, Back: Negative for injury and pain, MS/Extremity: Negative for injury and deformity, Skin: Negative for injury, rash, and discoloration, Neuro: Negative for headache, weakness, numbness, tingling, and seizure. 16:05 Abdomen/GI: Positive for abdominal pain, Negative for nausea, vomiting, and diarrhea, black/tarry stool, rectal bleeding, acute changes. Exam: 16:05 Constitutional: This is a well developed, well nourished patient who is awake, alert, jr8 and in no acute distress. Head/Face: Normocephalic, atraumatic. Eyes: Pupils equal round and reactive to light, extra-ocular motions intact. Lids and lashes normal. Conjunctiva and sclera are non-icteric and not injected. Cornea within normal limits. Periorbital areas with no swelling, redness, or edema. ENT: Nares patent. No nasal discharge, no septal abnormalities noted. Tympanic membranes are normal and external auditory canals are clear. Oropharynx with no redness, swelling, or masses, exudates, or evidence of obstruction, uvula midline. Mucous membranes moist. Neck: Trachea midline, no thyromegaly or masses palpated, and no cervical lymphadenopathy. Supple, full range of motion without nuchal rigidity, or vertebral point tenderness. No Meningismus. Chest/axilla: Normal chest wall appearance and motion. Nontender with no deformity. No lesions are appreciated. Cardiovascular: Regular rate and rhythm with a normal S1 and S2. No gallops, murmurs, or rubs. Normal PMI, no JVD. No pulse deficits. Respiratory: Lungs have equal breath sounds bilaterally, clear to auscultation and percussion. No rales, rhonchi or wheezes noted. No increased work of breathing, no retractions or nasal flaring. Back: No spinal tenderness. No costovertebral tenderness. Full range of motion. Skin: Warm, dry with normal turgor. Normal color with no rashes, no lesions, and no evidence of cellulitis. Neuro: Awake and alert, GCS 15, oriented to person, place, time, and situation. Cranial nerves II-XII grossly intact. Motor strength 5/5 in all extremities. Sensory grossly intact. Cerebellar exam normal. Normal gait. 16:05 Abdomen/GI: Inspection: abdomen appears normal, Bowel sounds: normal, Palpation: soft, in all quadrants, mild abdominal tenderness, in the right lower quadrant and left lower quadrant, Indicators: McBurney's point is not tender, Titus's sign is negative, Rovsing's sign is negative, Obturator sign is negative, Psoas sign is negative. Vital Signs: 11:33 BP 140 / 98; Pulse 98; Resp 16; Temp 99(O); Pulse Ox 97% ; Weight 117.93 kg; Height 5 sv ft. 10 in. (177.80 cm); Pain 7/10; 17:31 BP 123 / 77; Pulse 69; Resp 16; Pulse Ox 98% on R/A; iw 11:33 Body Mass Index 37.31 (117.93 kg, 177.80 cm) sv MDM: 15:12 Patient medically screened. jr8 17:32 Data reviewed: vital signs, nurses notes, lab test result(s), and as a result, I will jr8 discharge patient. Data interpreted: Pulse oximetry: on room air is 98 %. Interpretation: normal. 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 Response to treatment: the patient's symptoms have markedly improved after treatment. ED course: Patient with mild tenderness to to right lower quadrant abdomen without focal rebound or rigidity. Same pain as what he has had in past. Labs unremarkable. Will treat as UC flare. Has appointment Jul [address] Marquez. Strict returns precautions given. 06/30 15:12 Order name: Basic Metabolic Panel; Complete Time: 17:31 06/30 15:12 Order name: CBC with Diff; Complete Time: 16:03 [facility] 06/30 15:12 Order name: Creatinine for Radiology; Complete Time: 17:31 8 06/30 15:12 Order name: Hepatic Function; Complete Time: 17:31 06/30 15:12 Order name: Lipase; Complete Time: 17:31 [facility] 06/30 15:12 Order name: IV Saline Lock; Complete Time: 16:00 06/30 15:12 Order name: Labs collected and sent; Complete Time: 16:00 Administered Medications: 16:29 Drug: Zofran 4 mg Route: IVP; Site: right antecubital; iw 17:00 Follow up: Response: No adverse reaction iw 16:29 Drug: morphine 4 mg {Note: RASS:0.} Route: IVP; Site: right antecubital; iw 17:00 Follow up: Response: No adverse reaction iw 16:29 Drug: Cipro 500 mg Route: PO; iw 17:00 Follow up: Response: No adverse reaction iw 16:29 Drug: Flagyl 500 mg Route: PO; iw 17:00 Follow up: Response: No adverse reaction iw 17:48 Drug: morphine 4 mg Route: IVP; Site: right antecubital; iw 18:02 Follow up: Response: No adverse reaction; Pain is decreased iw Disposition: 07/01 07:44 Co-signature as Attending Physician, Rei Noguera MD I agree with the assessment and umang plan of care. Disposition: 06/30/19 17:37 Discharged to Home. Impression: Ulcerative colitis, Lower abdominal pain, unspecified. - Condition is Stable. - Discharge Instructions: Abdominal Pain, Adult, Ulcerative Colitis, Adult. - Prescriptions for Cipro 500 mg Oral Tablet - take 1 tablet by ORAL route every 12 hours for 10 days; 20 tablet. Flagyl 500 mg Oral Tablet - take 1 tablet by ORAL route every 6 hours for 10 days; 40 tablet. Tramadol 50 mg Oral Tablet - take 1 tablet by ORAL route every 8 hours as needed; 20 tablet. Medrol (Thee) 4 mg Oral Tablets, Dose Pack - take 1 tablet by ORAL route as directed - follow package instructions; 1 packet. - Medication Reconciliation Form, Thank You Letter, Antibiotic Education, Prescription Opioid Use form. - Follow up: Pastor Marquez MD; When: 10 - 14 days; Reason: Recheck today's complaints, Continuance of care, Re-evaluation by your physician. - Problem is new. - Symptoms have improved. Signatures: Dispatcher [employer] Sherrie Kovacs, Rei Devine RN, MD MD cha Williams, Irene, RN RN iw Luis Carlos Thomas PA PA jr8 Corrections: (The following items were deleted from the chart) 06/30 18:04 17:37 06/30/2019 17:37 Discharged to Home. Impression: Ulcerative colitis; Lower iw abdominal pain, unspecified. Condition is Stable. Forms are Medication Reconciliation Form, Thank You Letter, Antibiotic Education, Prescription Opioid Use. Follow up: Pastor Marquez; When: 10 - 14 days; Reason: Recheck today's complaints, Continuance of care, Re-evaluation by your physician. Problem is new. Symptoms have improved. jr8
[2019-06-30 18:26] VITALS: BP 123/77; O2SAT 98
[2019-06-30 18:27] VITALS: TEMP 99
== END 2019-06-30 18:04 | disposition home or self-care (01) ==
LOC: ER 11:26
DX: K51.90 Ulcerative colitis, unspecified, without complications (principal)
CPT/HCPCS: 85025; 80048; 36415; 80076; 83690; 96375; 96374; 99284; J2405

== ENCOUNTER 2019-08-04 08:42 | Emergency (ER) | payer BC ==
[2019-08-04] MEDS ORDERED: ONDANSETRON 4 MG/2 ML VIAL ONE (09:07)
[2019-08-04] MEDS ORDERED: NA CHLORIDE 0.9% 1,000 ML ONE (09:07)
[2019-08-04] MEDS ORDERED: METHYLPREDNISOLONE 125 MG INJ ONE (09:07)
[2019-08-04] MEDS ORDERED: MEPERIDINE HCL 50 MG/ML ONE ×2 (09:16→10:22)
[2019-08-04 09:37] LABS: Absolute Lymphocytes (CBC) 0.9 K/uL (0.7-4.9); Basophils % 0.6 % (0-1.3); Hematocrit 39.3 % (39.6-49.0); Lymphocytes % 11.8 % (15.3-44.8); MPV 8.6 fL (7.6-11.3); RBC Red Blood Cell Count 4.53 M/uL (4.33-5.43)
[2019-08-04 09:55] LABS: Albumin 3.6 g/dL (3.4-5.0); Bilirubin Direct 0.1 mg/dL (0-0.2); Bilirubin Total 0.6 mg/dL (0.2-1.0); Potassium 3.5 mmol/L (3.5-5.1); Protein, Total 6.9 g/dL (6.4-8.2)
--- NOTE | 2019-08-04 10:21 | EDPHYS ---
Physician Documentation [facility] Name: Slava Biswas Age: 34 yrs Sex: Male : 1985 Arrival Date: 08/04/2019 Time: 08:45 Bed 7 Private MD: Cecilio Merida ED Physician Bacilio Newton HPI: 08/04 09:03 This 34 yrs old Male presents to ER via Ambulatory with complaints of rn Abdominal Pain. 09:04 The patient presents with abdominal pain in the lower abdomen. Onset: The rn symptoms/episode began/occurred this morning. The symptoms do not radiate. Associated signs and symptoms: Pertinent positives: diarrhea, nausea, Pertinent negatives: blood in stools, fever, testicular pain, vomiting, vomiting blood. The symptoms are described as crampy, intermittent, sharp. Modifying factors: The symptoms are alleviated by nothing, the symptoms are aggravated by touching the area. Severity of pain: At its worst the pain was moderate in the emergency department the pain has improved. The patient has experienced similar episodes in the past. The patient has not recently seen a physician. Reports feels like flare of Ulcerative colitis, reports last attack 1 month ago, this morning began with lower abd and right sided abd pain, states this is normal location for his ulcerative colitis to act up, nothing out of ordinary for him. Reports multiple non-bloody episodes of diarrhea this AM and pain got worse so came in. . Historical: - Allergies: 08:50 Codeine (Hives, rash); iw 08:50 Tylenol-Codeine #3; iw - Home Meds: 08:50 Prilosec 40 mg Oral cpDR 1 cap 2 times per day [Active]; Probiotic Oral daily [Active]; iw - PMHx: 08:50 Colitis; GERD; ulcertive colitis; iw - PSHx: 08:50 Hernia repair; Tonsillectomy; septum; iw - Immunization history:: Adult Immunizations up to date. - Social history:: Smoking status: Patient/guardian denies using tobacco. - Ebola Screening: : Patient negative for fever greater than or equal to 101.5 degrees Fahrenheit, and additional compatible Ebola Virus Disease symptoms Patient denies exposure to infectious person Patient denies travel to an Ebola-affected area in the 21 days before illness onset No symptoms or risks identified at this time. - Family history:: not pertinent. - Hospitalizations: : No recent hospitalization is reported. ROS: 09:04 Constitutional: Negative for fever, chills, and weight loss, Eyes: Negative for injury, rn pain, redness, and discharge, Neck: Negative for injury, pain, and swelling, Cardiovascular: Negative for chest pain, palpitations, and edema, Respiratory: Negative for shortness of breath, cough, wheezing, and pleuritic chest pain, Abdomen/GI: Negative for vomiting, and constipation, Back: Negative for injury and pain, : Negative for injury, bleeding, discharge, and swelling, MS/Extremity: Negative for injury and deformity, Skin: Negative for injury, rash, and discoloration, Neuro: Negative for headache, weakness, numbness, tingling, and seizure. Exam: 09:04 Constitutional: This is a well developed, well nourished patient who is awake, alert, rn appears a little uncomfortable Head/Face: Normocephalic, atraumatic. ENT: MMM Cardiovascular: Regular rate and rhythm. No pulse deficits. Respiratory: No increased work of breathing, no retractions or nasal flaring. Abdomen/GI: soft, mild tenderness right lower quadrant and suprapubic region, no peritoneal signs. MS/ Extremity: Pulses equal, no cyanosis. Neurovascular intact. Full, normal range of motion. Equal circumference. Neuro: Awake and alert, GCS 15 Vital Signs: 08:50 BP 150 / 88; Pulse 85; Resp 16; Temp 97.5(TE); Pulse Ox 100% on R/A; Weight 117.93 kg; iw Height 5 ft. 10 in. (177.80 cm); Pain 7/10; 09:57 BP 117 / 78; Pulse 72; Resp 17; Pulse Ox 98% on R/A; mh5 10:47 BP 124 / 75; Pulse 82; Resp 16; Pulse Ox 98% ; mh5 08:50 Body Mass Index 37.31 (117.93 kg, 177.80 cm) iw MDM: 08:55 Patient medically screened. rn 10:17 ED course: Pt feels better, no acute findings or abnormalities in lab work, normal rn vitals, most likely UC flare, will dc home with symptomatic treatment now that feeling better. Recommend f/u with his GI doctor. Return precautions given. Given identical to previous UC flares, afebrile, and normal WBC, can spare this patient radiation from another CT as states gets them annually. . 08/04 09:03 Order name: Basic Metabolic Panel; Complete Time: : rn 08/04 09:03 Order name: CBC with Diff; Complete Time: : rn 08/04 09:03 Order name: Hepatic Function; Complete Time: : rn 08/04 09:03 Order name: Lipase; Complete Time: : rn 08/04 09:03 Order name: IV Saline Lock; Complete Time: : rn 08/04 09:03 Order name: Labs collected and sent; Complete Time: : rn Administered Medications: 09:15 Drug: NS 0.9% 1000 ml Route: IV; Rate: 1000 ml; Site: right antecubital; jl7 10:00 Follow up: Response: No adverse reaction; IV Status: Completed infusion; IV Intake: jl7 1000ml 09:15 Drug: SOLU-Medrol 125 mg Route: IVP; Site: right antecubital; jl7 09:37 Follow up: Response: No adverse reaction jl7 09:17 Drug: Zofran 4 mg Route: IVP; Site: right antecubital; jl7 09:37 Follow up: Response: No adverse reaction jl7 09:19 Drug: Demerol 50 mg Route: IVP; Site: right antecubital; jl7 09:37 Follow up: Response: No adverse reaction; Pain is decreased jl7 10:26 Drug: Demerol 50 mg Route: IVP; Site: right antecubital; Disposition: 08/04/19 10:21 Discharged to Home. Impression: Ulcerative colitis, unspecified. - Condition is Stable. - Discharge Instructions: Ulcerative Colitis, Adult. - Prescriptions for Ultram 50 mg Oral Tablet - take 1 tablet by ORAL route every 6 hours As needed; 15 tablet. Zofran ODT 4 mg Oral tablet,disintegrating - place 1 tablet by TRANSLINGUAL route every 8 hours As needed; 20 tablet. Cipro 500 mg Oral Tablet - take 1 tablet by ORAL route every 12 hours for 10 days; 20 tablet. Flagyl 500 mg Oral Tablet - take 1 tablet by ORAL route every 8 hours for 10 days; 30 tablet. - Work release form, Medication Reconciliation Form, Thank You Letter, Antibiotic Education, Prescription Opioid Use form. - Follow up: Rashard Nascimento; When: As needed; Reason: Recheck today's complaints, Re-evaluation by your physician. - Problem is an acute exacerbation. - Symptoms have improved. Signatures: Dispatcher [employer] EDGreg Ellison, RN HARSHA sg Jolene Ware RN HARSHA iw Bacilio Newton MD MD rn Leal, Jahala, RN RN jl7 Corrections: (The following items were deleted from the chart) 10:55 10:21 08/04/2019 10:21 Discharged to Home. Impression: Ulcerative colitis, unspecified. sg Condition is Stable. Discharge Instructions: Ulcerative Colitis, Adult. Prescriptions for Ultram 50 mg Oral Tablet - take 1 tablet by ORAL route every 6 hours As needed; 15 tablet, Zofran ODT 4 mg Oral tablet,disintegrating - place 1 tablet by TRANSLINGUAL route every 8 hours As needed; 20 tablet, Cipro 500 mg Oral Tablet - take 1 tablet by ORAL route every 12 hours for 10 days; 20 tablet, Flagyl 500 mg Oral Tablet - take 1 tablet by ORAL route every 8 hours for 10 days; 30 tablet. and Forms are Medication Reconciliation Form, Thank You Letter, Antibiotic Education, Prescription Opioid Use. Follow up: Rashard Nascimento; When: As needed; Reason: Recheck today's complaints, Re-evaluation by your physician. Problem is an acute exacerbation. Symptoms have improved. rn
--- NOTE | 2019-08-04 10:21 | ER ---
Nurse's Notes [facility] Name: Slava Biswas Age: 34 yrs Sex: Male : 1985 Arrival Date: 08/04/2019 Time: 08:45 Bed 7 Private MD: Cecilio Merida Diagnosis: Ulcerative colitis, unspecified Presentation: 08/04 08:49 Presenting complaint: Patient states: flare up of ulcerative colitis this morning, RLQ iw pain and diarrhea. Transition of care: patient was not received from another setting of care. Onset of symptoms was August 04, 2019. Risk Assessment: Do you want to hurt yourself or someone else? Patient reports no desire to harm self or others. Initial Sepsis Screen: Does the patient meet any 2 criteria? No. Patient's initial sepsis screen is negative. Does the patient have a suspected source of infection? No. Patient's initial sepsis screen is negative. Care prior to arrival: None. 08:49 Method Of Arrival: Ambulatory iw 08:49 Acuity: TRACEE 3 iw Historical: - Allergies: 08:50 Codeine (Hives, rash); iw 08:50 Tylenol-Codeine #3; iw - Home Meds: 08:50 Prilosec 40 mg Oral cpDR 1 cap 2 times per day [Active]; Probiotic Oral daily [Active]; iw - PMHx: 08:50 Colitis; GERD; ulcertive colitis; iw - PSHx: 08:50 Hernia repair; Tonsillectomy; septum; iw - Immunization history:: Adult Immunizations up to date. - Social history:: Smoking status: Patient/guardian denies using tobacco. - Ebola Screening: : Patient negative for fever greater than or equal to 101.5 degrees Fahrenheit, and additional compatible Ebola Virus Disease symptoms Patient denies exposure to infectious person Patient denies travel to an Ebola-affected area in the 21 days before illness onset No symptoms or risks identified at this time. - Family history:: not pertinent. - Hospitalizations: : No recent hospitalization is reported. Screenin:22 Abuse screen: Denies threats or abuse. Denies injuries from another. Nutritional jl7 screening: No deficits noted. Tuberculosis screening: No symptoms or risk factors identified. Fall Risk IV access (20 points). Total Brennan Fall Scale indicates No Risk (0-24 pts). Assessment: 09:00 General: Appears in no apparent distress. well groomed, well developed, well nourished, sg Behavior is calm, cooperative, appropriate for age, quiet. Pain: Complains of pain in right lower quadrant Quality of pain is described as sharp, "chrons flare up". Neuro: Level of Consciousness is awake, alert, obeys commands, Oriented to person, place, time, situation, Gait is steady, Speech is normal, Facial symmetry appears normal. Cardiovascular: Patient's skin is warm and dry. Chest pain is denied. Respiratory: Airway is patent Respiratory effort is even, unlabored, Respiratory pattern is regular, symmetrical, Breath sounds are clear bilaterally. Denies cough, shortness of breath. GI: Abdomen is round non-distended, Bowel sounds present X 4 quads. Abd is soft and non tender X 4 quads. Reports lower abdominal pain, diarrhea, nausea. : No signs and/or symptoms were reported regarding the genitourinary system. EENT: No signs and/or symptoms were reported regarding the EENT system. Derm: Skin is pink, warm \\T\\ dry. Musculoskeletal: Circulation, motion, and sensation intact. Range of motion: intact in all extremities. 09:36 Reassessment: Pain reassessed, pt states "It came down a little." Rated 4/10 at this jl7 time. 10:40 Reassessment: Patient appears in no apparent distress at this time. Patient and/or sg family updated on plan of care and expected duration. Pain level reassessed. Patient is alert, oriented x 3, equal unlabored respirations, skin warm/dry/pink. Vital Signs: 08:50 BP 150 / 88; Pulse 85; Resp 16; Temp 97.5(TE); Pulse Ox 100% on R/A; Weight 117.93 kg; iw Height 5 ft. 10 in. (177.80 cm); Pain 7/10; 09:57 BP 117 / 78; Pulse 72; Resp 17; Pulse Ox 98% on R/A; mh5 10:47 BP 124 / 75; Pulse 82; Resp 16; Pulse Ox 98% ; mh5 08:50 Body Mass Index 37.31 (117.93 kg, 177.80 cm) iw ED Course: 08:45 Patient arrived in ED. mr 08:45 Cecilio Merida MD is Private Physician. mr 08:50 Triage completed. iw 08:50 Arm band placed on. iw 08:52 Brittny Zepeda, RN is Primary Nurse. jl7 08:55 Bacilio Newton MD is Attending Physician. rn 09:22 Patient has correct armband on for positive identification. Bed in low position. Call jl7 light in reach. Side rails up X 1. Pulse ox on. NIBP on. 09:22 Initial lab(s) drawn, by md, sent to lab. Inserted saline lock: 22 gauge in right jl7 antecubital area, using aseptic technique. Blood collected. 09:48 Primary Nurse role handed off by Brittny Zepeda, HARSHA sg 09:48 Greg Pedro, HARSHA is Primary Nurse. sg 10:21 Rashard Nascimento MD is Referral Physician. rn 10:40 No provider procedures requiring assistance completed. IV discontinued, intact, sg bleeding controlled, No redness/swelling at site. Pressure dressing applied. 10:52 IV discontinued, Pressure dressing applied. mh5 Administered Medications: 09:15 Drug: NS 0.9% 1000 ml Route: IV; Rate: 1000 ml; Site: right antecubital; jl7 10:00 Follow up: Response: No adverse reaction; IV Status: Completed infusion; IV Intake: jl7 1000ml 09:15 Drug: SOLU-Medrol 125 mg Route: IVP; Site: right antecubital; jl7 09:37 Follow up: Response: No adverse reaction jl7 09:17 Drug: Zofran 4 mg Route: IVP; Site: right antecubital; jl7 09:37 Follow up: Response: No adverse reaction jl7 09:19 Drug: Demerol 50 mg Route: IVP; Site: right antecubital; jl7 09:37 Follow up: Response: No adverse reaction; Pain is decreased jl7 10:26 Drug: Demerol 50 mg Route: IVP; Site: right antecubital; sg Intake: 10:00 IV: 1000ml; Total: 1000ml. jl7 Outcome: 10:21 Discharge ordered by . rn 10:40 Discharged to home ambulatory, with family. sg 10:40 Condition: good 10:40 Discharge instructions given to patient, Instructed on discharge instructions, follow up and referral plans. safety practices, Demonstrated understanding of instructions, follow-up care, Prescriptions given X 4. 10:55 Patient left the ED. sg Signatures: Greg Pedro RN HARSHA Eller, Mary Carmen adames Jolene Ware RN RN iw Nieto, Roman, MD MD rn Martinez, Maria [facility] Brittny Zepeda RN RN jl7 Corrections: (The following items were deleted from the chart) 10:48 10:40 Discharge instructions given to patient, Instructed on discharge instructions, sg follow up and referral plans. safety practices, Demonstrated understanding of instructions, follow-up care, sg
[2019-08-04 10:59] VITALS: TEMP 97.5
[2019-08-04 11:00] VITALS: O2SAT 98
[2019-08-04 11:02] VITALS: BP 124/75
== END 2019-08-04 10:55 | disposition home or self-care (01) ==
LOC: ER 08:42
DX: K51.90 Ulcerative colitis, unspecified, without complications (principal); Z88.5 Allergy status to narcotic agent; Z88.6 Allergy status to analgesic agent
CPT/HCPCS: 96361; 85025; 80048; 36415; 80076; 83690; 96375; 96374; 99284; J2175 ×2; J7030; J2930; J2405

== ENCOUNTER 2019-08-19 08:09 | Emergency (ER) | payer BC ==
[2019-08-19] MEDS ORDERED: NA CHLORIDE 0.9% 1,000 ML ONE (09:12)
[2019-08-19] MEDS ORDERED: MEPERIDINE HCL 50 MG/ML ONE ×2 (09:12→11:07)
[2019-08-19] MEDS ORDERED: ONDANSETRON 4 MG/2 ML VIAL ONE (09:12)
[2019-08-19 09:36] LABS: Absolute Lymphocytes (CBC) 1.5 K/uL (0.7-4.9); Basophils % 0.7 % (0-1.3); Lymphocytes % 17.9 % (15.3-44.8); MPV 8.7 fL (7.6-11.3)
[2019-08-19 09:47] LABS: Albumin 3.7 g/dL (3.4-5.0); Bilirubin Direct 0.1 mg/dL (0-0.2); Bilirubin Total 0.4 mg/dL (0.2-1.0); Potassium 3.7 mmol/L (3.5-5.1); Protein, Total 7.6 g/dL (6.4-8.2)
--- NOTE | 2019-08-19 10:59 | ER ---
Nurse's Notes [facility] Name: Slava Biswas Age: 34 yrs Sex: Male : 1985 Arrival Date: 08/19/2019 Time: 08:18 Bed 8 Private MD: Cecilio Merida Diagnosis: Abdominal and pelvic pain;Other ulcerative colitis without complications Presentation: 08/19 08:25 Presenting complaint: Patient states: RLQ pain, nausea and diarrhea that began last ss night. Pt believes it is a UC flare up. Transition of care: patient was not received from another setting of care. Onset of symptoms was August 18, 2019. Risk Assessment: Do you want to hurt yourself or someone else? Patient reports no desire to harm self or others. Initial Sepsis Screen: Does the patient meet any 2 criteria? HR > 90 bpm. Does the patient have a suspected source of infection? No. Patient's initial sepsis screen is negative. Care prior to arrival: None. 08:25 Method Of Arrival: Ambulatory ss 08:25 Acuity: TRACEE 3 ss Historical: - Allergies: 08:27 Codeine (Hives, rash); ss 08:27 Tylenol-Codeine #3; ss - PMHx: 08:27 GERD; ulcertive colitis; ss - PSHx: 08:27 Hernia repair; Tonsillectomy; septum; ss - Immunization history:: Adult Immunizations up to date. - Social history:: Smoking status: Patient/guardian denies using tobacco. - Ebola Screening: : Patient denies exposure to infectious person Patient denies travel to an Ebola-affected area in the 21 days before illness onset. Screenin:27 Abuse screen: Denies threats or abuse. Denies injuries from another. Nutritional ph screening: No deficits noted. Tuberculosis screening: No symptoms or risk factors identified. Fall Risk None identified. Assessment: 09:24 General: Appears in no apparent distress. comfortable, well groomed, Behavior is calm, ph cooperative, appropriate for age. Pain: Complains of pain in right lower quadrant Pain currently is 6 out of 10 on a pain scale. Neuro: Level of Consciousness is awake, alert, obeys commands, Oriented to person, place, time, situation. Cardiovascular: Capillary refill < 3 seconds in bilateral fingers Patient's skin is warm and dry. Respiratory: Respiratory: Airway is patent Respiratory effort is even, unlabored, Respiratory pattern is regular, symmetrical. GI: Abdomen is round non-distended, Bowel sounds present X 4 quads. Abd is soft X 4 quads Reports lower abdominal pain, diarrhea, nausea, Patient currently denies vomiting. Derm: Skin is intact, is healthy with good turgor, Skin is pink, warm \\T\\ dry. Musculoskeletal: Circulation, motion, and sensation intact. Range of motion: intact in all extremities. 10:25 Reassessment: Patient appears in no apparent distress at this time. Patient and/or ph family updated on plan of care and expected duration. Pain level reassessed. Patient is alert, oriented x 3, equal unlabored respirations, skin warm/dry/pink. Pt states, " The pain went down a lot after the medicine but now it's creeping back up again." Denies nausea at this time, VSS. 11:17 Reassessment: Pt up for discharge. Pt calling his ride home right now since he is sv getting Demerol at this time. 11:40 Reassessment: Pt's mother at bedside, pt d/c home. ph Vital Signs: 08:27 BP 153 / 108; Pulse 117; Resp 16; Temp 98.0(TE); Pulse Ox 100% on R/A; Weight 117.93 ss kg; Height 5 ft. 10 in. (177.80 cm); Pain 10/10; 09:28 BP 156 / 109; Pulse 89; Resp 18; Pulse Ox 96% on R/A; ph 10:26 BP 128 / 88; Pulse 72; Resp 18; Pulse Ox 98% on R/A; ph 11:15 BP 130 / 86; Pulse 75; Resp 18; Temp 97.6; Pulse Ox 99% ; Pain 4/10; ph 08:27 Body Mass Index 37.31 (117.93 kg, 177.80 cm) ED Course: 08:18 Patient arrived in ED. mr 08:18 Cecilio Merida MD is Private Physician. mr 08:26 Triage completed. ss 08:27 Arm band placed on left wrist. ss 08:29 Sinan Cole MD is Attending Physician. kdr 08:30 Ros Ruff RN is Primary Nurse. ph 09:18 Patient has correct armband on for positive identification. Bed in low position. Call sv light in reach. Door closed. Head of bed elevated. 09:20 Inserted saline lock: 20 gauge in left. ph 10:57 Cecilio Merida MD is Referral Physician. kdr 11:20 No provider procedures requiring assistance completed. IV discontinued, intact, ph bleeding controlled, No redness/swelling at site. Pressure dressing applied. Administered Medications: 09:22 Drug: NS 0.9% 1000 ml Route: IV; Rate: 1 bolus; Site: right antecubital; ph 10:27 Follow up: Response: No adverse reaction; IV Status: Completed infusion; IV Intake: ph 1000ml 09:23 Drug: Demerol 50 mg Route: IVP; Site: right antecubital; ph 10:00 Follow up: Response: No adverse reaction; Pain is decreased; RASS: Alert and Calm (0) ph 09:23 Drug: Zofran 4 mg Route: IVP; Site: right antecubital; ph 10:26 Follow up: Response: No adverse reaction; Nausea is decreased ph 11:10 Drug: Demerol 50 mg {Note: RASS0.} Route: IVP; Site: right antecubital; sv Intake: 10:27 IV: 1000ml; Total: 1000ml. ph Outcome: 10:58 Discharge ordered by MD. kdr 11:44 Patient left the ED. ph 11:44 Discharged to home ambulatory, with family. ph 11:44 Condition: improved 11:44 Discharge instructions given to patient, Instructed on discharge instructions, follow up and referral plans. medication usage, Demonstrated understanding of instructions, follow-up care, medications, Prescriptions given X 5 Signatures: Sherrie Ibarra RN RN sv Rittger, Kevin, MD MD kdr Rivera, Mary mr Ursula Encinas RN RN Ros Ruff RN RN ph
--- NOTE | 2019-08-19 10:59 | EDPHYS ---
[facility] Name: Slava Biswas Age: 34 yrs Sex: Male : 1985 Arrival Date: 08/19/2019 Time: 08:18 Bed 8 Private MD: Cecilio Merida ED Physician Sinan Cole HPI: 08/19 11:05 This 34 yrs old Male presents to ER via Ambulatory with complaints of kdr Abdominal Pain. 11:05 The patient presents with abdominal pain in the right upper quadrant. Onset: The kdr symptoms/episode began/occurred gradually, last night. The symptoms do not radiate. Associated signs and symptoms: Pertinent positives: blood in stools, nausea, Had minor blood last night but not today, Pertinent negatives: nausea and vomiting. The symptoms are described as burning, constant, sharp, steady. Modifying factors: The symptoms are alleviated by nothing, the symptoms are aggravated by breathing deeply, movement, touching the area. Severity of pain: At its worst the pain was moderate in the emergency department the pain is unchanged. The patient has experienced similar episodes in the past, multiple times. The patient has experienced similar episodes in the past, multiple times. The patient has been recently seen by a physician: The patient has been recently seen at the [facility] Emergency Department. Historical: - Allergies: 08:27 Codeine (Hives, rash); ss 08:27 Tylenol-Codeine #3; ss - PMHx: 08:27 GERD; ulcertive colitis; ss - PSHx: 08:27 Hernia repair; Tonsillectomy; septum; ss - Immunization history:: Adult Immunizations up to date. - Social history:: Smoking status: Patient/guardian denies using tobacco. - Ebola Screening: : Patient denies exposure to infectious person Patient denies travel to an Ebola-affected area in the 21 days before illness onset. ROS: 11:05 Constitutional: Negative for fever, chills, and weight loss, Eyes: Negative for injury, kdr pain, redness, and discharge, ENT: Negative for injury, pain, and discharge, Neck: Negative for injury, pain, and swelling, Cardiovascular: Negative for chest pain, palpitations, and edema, Respiratory: Negative for shortness of breath, cough, wheezing, and pleuritic chest pain, Back: Negative for injury and pain, : Negative for injury, bleeding, discharge, and swelling, MS/Extremity: Negative for injury and deformity, Skin: Negative for injury, rash, and discoloration, Neuro: Negative for headache, weakness, numbness, tingling, and seizure activity. Psych: Negative for depression, anxiety, suicide ideation, homicidal ideation, and hallucinations, Allergy/Immunology: Negative for hives, rash, and allergies, Endocrine: Negative for neck swelling, polydipsia, polyuria, polyphagia, and marked weight changes, Hematologic/Lymphatic: Negative for swollen nodes, abnormal bleeding, and unusual bruising. 11:05 Abdomen/GI: Positive for nausea, abdominal cramps, Negative for vomiting, constipation, abdominal distension, anorexia, dysphagia, hematemesis, black/tarry stool, rectal pain. Exam: 11:05 Constitutional: This is a well developed, well nourished patient who is awake, alert, kdr and in no acute distress. Head/Face: Normocephalic, atraumatic. Eyes: Pupils equal round and reactive to light, extra-ocular motions intact. Lids and lashes normal. Conjunctiva and sclera are non-icteric and not injected. Cornea within normal limits. Periorbital areas with no swelling, redness, or edema. Neck: Trachea midline, no thyromegaly or masses palpated, and no cervical lymphadenopathy. Supple, full range of motion without nuchal rigidity, or vertebral point tenderness. No Meningismus. Chest/axilla: Normal chest wall appearance and motion. Nontender with no deformity. No lesions are appreciated. Cardiovascular: Regular rate and rhythm with a normal S1 and S2. No gallops, murmurs, or rubs. Normal PMI, no JVD. No pulse deficits. Respiratory: Lungs have equal breath sounds bilaterally, clear to auscultation and percussion. No rales, rhonchi or wheezes noted. No increased work of breathing, no retractions or nasal flaring. Back: No spinal tenderness. No costovertebral tenderness. Full range of motion. Skin: Warm, dry with normal turgor. Normal color with no rashes, no lesions, and no evidence of cellulitis. 11:05 Abdomen/GI: Inspection: obese Bowel sounds: active, diminished, in all quadrants, Palpation: soft, mild abdominal tenderness, in the right upper quadrant, mass, is not appreciated, rebound tenderness, is not appreciated. Vital Signs: 08:27 BP 153 / 108; Pulse 117; Resp 16; Temp 98.0(TE); Pulse Ox 100% on R/A; Weight 117.93 ss kg; Height 5 ft. 10 in. (177.80 cm); Pain 10/10; 09:28 BP 156 / 109; Pulse 89; Resp 18; Pulse Ox 96% on R/A; ph 10:26 BP 128 / 88; Pulse 72; Resp 18; Pulse Ox 98% on R/A; ph 11:15 BP 130 / 86; Pulse 75; Resp 18; Temp 97.6; Pulse Ox 99% ; Pain 4/10; ph 08:27 Body Mass Index 37.31 (117.93 kg, 177.80 cm) ss MDM: 10:58 Patient medically screened. kdr 11:05 Data reviewed: vital signs, nurses notes, lab test result(s). Counseling: I had a kdr detailed discussion with the patient and/or guardian regarding: the historical points, exam findings, and any diagnostic results supporting the discharge/admit diagnosis, lab results, the need for outpatient follow up. ED course: The patient stated that the pain is steady in the right upper quadrant and is typical for his usual UC flares. There was nothing concerning or different about his presentation. ED course: The patient was happy with the care provided and the plan for discharge and follow-up.. 08/19 08:29 Order name: Basic Metabolic Panel; Complete Time: 10:56 kdr 08/19 08:29 Order name: CBC with Diff; Complete Time: 10:56 kdr 08/19 08:29 Order name: Creatinine for Radiology; Complete Time: 10:56 kdr 08/19 08:29 Order name: Hepatic Function; Complete Time: 10:56 kdr 08/19 08:29 Order name: Lipase; Complete Time: 10:56 kdr 08/19 08:29 Order name: IV Saline Lock; Complete Time: :23 kdr 08/19 08:29 Order name: Labs collected and sent; Complete Time: 09:23 kdr Administered Medications: 09:22 Drug: NS 0.9% 1000 ml Route: IV; Rate: 1 bolus; Site: right antecubital; ph 10:27 Follow up: Response: No adverse reaction; IV Status: Completed infusion; IV Intake: ph 1000ml 09:23 Drug: Demerol 50 mg Route: IVP; Site: right antecubital; ph 10:00 Follow up: Response: No adverse reaction; Pain is decreased; RASS: Alert and Calm (0) ph 09:23 Drug: Zofran 4 mg Route: IVP; Site: right antecubital; ph 10:26 Follow up: Response: No adverse reaction; Nausea is decreased ph 11:10 Drug: Demerol 50 mg {Note: RASS0.} Route: IVP; Site: right antecubital; sv Disposition: 08/19/19 10:58 Discharged to Home. Impression: Abdominal and pelvic pain, Other ulcerative colitis without complications. - Condition is Stable. - Discharge Instructions: Abdominal Pain, Adult, [id number], Colitis. - Prescriptions for Cipro 500 mg Oral Tablet - take 1 tablet by ORAL route every 12 hours for 10 days; 20 tablet. Flagyl 500 mg Oral Tablet - take 1 tablet by ORAL route every 6 hours for 10 days; 40 tablet. Pepcid 20 mg Oral Tablet - take 1 tablet by ORAL route every 12 hours for 5 days; 10 tablet. Tramadol 50 mg Oral Tablet - take 1 tablet by ORAL route every 8 hours as needed; 12 tablet. Zofran 4 mg Oral Tablet - take 1 tablet by ORAL route every 4-6 hours As needed; 12 tablet. - Medication Reconciliation Form, Thank You Letter, Antibiotic Education, Prescription Opioid Use form. - Follow up: Cecilio Merida MD; When: 2 - 3 days; Reason: If symptoms return, Further diagnostic work-up, Recheck today's complaints, Continuance of care, Re-evaluation by your physician. - Problem is an acute exacerbation. - Symptoms have improved. Signatures: Dispatcher [employer] [facility] Sherrie Ibarra RN RN Sinan Pena MD MD [facility] Ursula Encinas RN RN ss Hall, Patricia, RN RN ph Corrections: (The following items were deleted from the chart) 11:44 10:58 08/19/2019 10:58 Discharged to Home. Impression: Abdominal and pelvic pain; Other ph ulcerative colitis without complications. Condition is Stable. Forms are Medication Reconciliation Form, Thank You Letter, Antibiotic Education, Prescription Opioid Use. Follow up: Cecilio Merida; When: 2 - 3 days; Reason: If symptoms return, Further diagnostic work-up, Recheck today's complaints, Continuance of care, Re-evaluation by your physician. Problem is an acute exacerbation. Symptoms have improved. kdr
[2019-08-19 11:52] VITALS: TEMP 98
[2019-08-19 11:56] VITALS: BP 128/88; O2SAT 98
--- OUTSIDE RECORDS SUMMARY | 2019-08-24 22:55 | XMS REPORT ---
:1985 [facility] [address] [facility] [address] [place] [id number] Care Team Providers Name Role Phone Unavailable Unavailable Unavailable Problems This patient has no known problems. Allergies, Adverse Reactions, Alerts This patient has no known allergies or adverse reactions. Medications This patient has no known medications.
== END 2019-08-19 11:44 | disposition home or self-care (01) ==
LOC: ER 08:09
DX: K51.80 Other ulcerative colitis without complications (principal); Z88.5 Allergy status to narcotic agent
CPT/HCPCS: 96361; 85025; 80048; 36415; 80076; 83690; 96375; 96374; 99283; J2175 ×2; J7030; J2405

== ENCOUNTER 2019-09-05 08:38 | Emergency (ER) | payer BC ==
--- OUTSIDE RECORDS SUMMARY | 2019-09-05 08:41 | XMS REPORT ---
:1985 [facility] [address] [facility] [address] [place] [id number] Care Team Providers Name Role Phone Unavailable Unavailable Unavailable Problems This patient has no known problems. Allergies, Adverse Reactions, Alerts This patient has no known allergies or adverse reactions. Medications This patient has no known medications.
[2019-09-05] MEDS ORDERED: NA CHLORIDE 0.9% 1,000 ML ONE ×2 (09:19→10:56)
[2019-09-05] MEDS ORDERED: ONDANSETRON 4 MG/2 ML VIAL ONE (09:19)
[2019-09-05] MEDS ORDERED: MORPHINE 4 MG/ML SYR ONE ×2 (09:19→10:57)
[2019-09-05 09:24] LABS: Absolute Lymphocytes (CBC) 1.6 K/uL (0.7-4.9); Basophils % 0.6 % (0-1.3); Hematocrit 44.4 % (39.6-49.0); Lymphocytes % 21.1 % (15.3-44.8); MPV 8.4 fL (7.6-11.3)
[2019-09-05 09:39] LABS: Albumin 3.9 g/dL (3.4-5.0); Bilirubin Direct 0.1 mg/dL (0-0.2); Bilirubin Total 0.5 mg/dL (0.2-1.0); Potassium 3.8 mmol/L (3.5-5.1); Protein, Total 7.6 g/dL (6.4-8.2)
[2019-09-05] MEDS ORDERED: DICYCLOMINE HCL 10 MG CAP ONE (10:11)
[2019-09-05] MEDS ORDERED: KETOROLAC 30 MG/ML INJ ONE (10:11)
--- NOTE | 2019-09-05 11:49 | ER ---
Nurse's Notes [facility] Name: Slava Biswas Age: 34 yrs Sex: Male : 1985 Arrival Date: 09/05/2019 Time: 08:40 Bed 18 Private MD: Cecilio Merida Diagnosis: Lower abdominal pain, unspecified;Other ulcerative colitis Presentation: 09/05 08:54 Presenting complaint: Patient states: RLQ pain, nausea and vomiting that began this ss morning. pt believes this is a UC flare up. Transition of care: patient was not received from another setting of care. Onset of symptoms was September 05, 2019. Risk Assessment: Do you want to hurt yourself or someone else? Patient reports no desire to harm self or others. Initial Sepsis Screen: Does the patient meet any 2 criteria? No. Patient's initial sepsis screen is negative. Does the patient have a suspected source of infection? No. Patient's initial sepsis screen is negative. Care prior to arrival: None. 08:54 Method Of Arrival: Ambulatory 08:54 Acuity: TRACEE 3 ss Historical: - Allergies: 08:52 Codeine (Hives, rash); ss 08:52 Tylenol-Codeine #3; ss - PMHx: 08:52 Colitis; GERD; ulcertive colitis; ss - PSHx: 08:52 Hernia repair; Tonsillectomy; septum; ss - Immunization history:: Adult Immunizations up to date. - Social history:: Smoking status: Patient/guardian denies using tobacco. - Ebola Screening: : Patient denies exposure to infectious person Patient denies travel to an Ebola-affected area in the 21 days before illness onset. Screenin:11 Abuse screen: Denies threats or abuse. Nutritional screening: No deficits noted. em Tuberculosis screening: No symptoms or risk factors identified. Fall Risk None identified. Assessment: 09:10 General: Appears in no apparent distress. comfortable, well groomed, well developed, em well nourished, Behavior is calm, cooperative, appropriate for age. Pain: Complains of pain in abdomen Pain currently is 8 out of 10 on a pain scale. Neuro: Level of Consciousness is awake, alert, obeys commands, Oriented to person, place, time, situation, Appropriate for age. Cardiovascular: Capillary refill < 3 seconds Patient's skin is warm and dry. Respiratory: Airway is patent Respiratory effort is even, unlabored, Respiratory pattern is regular, symmetrical. GI: Abdomen is flat, Bowel sounds present X 4 quads. Abd is soft X 4 quads Abdomen is tender to palpation in abdomen diffusely. Derm: Skin is intact, is healthy with good turgor, Skin is pink, warm \T\ dry. Musculoskeletal: Capillary refill < 3 seconds, Range of motion: intact in all extremities. 09:15 General: The previous assessment is accurate. Call light remains within reach.. ss 10:00 Reassessment: Patient appears in no apparent distress at this time. Patient and/or em family updated on plan of care and expected duration. Pain level reassessed. Patient is alert, oriented x 3, equal unlabored respirations, skin warm/dry/pink. 11:00 Reassessment: Patient appears in no apparent distress at this time. Patient and/or em family updated on plan of care and expected duration. Pain level reassessed. Patient is alert, oriented x 3, equal unlabored respirations, skin warm/dry/pink. pain is unchanged provider notified. 12:08 Reassessment: Patient appears in no apparent distress at this time. Patient and/or em family updated on plan of care and expected duration. Pain level reassessed. Patient is alert, oriented x 3, equal unlabored respirations, skin warm/dry/pink. rates pain 4/10 Patient states feeling better. Vital Signs: 08:50 BP 142 / 104; Pulse 93; Resp 16; Temp 98.3(O); Pulse Ox 99% on R/A; Weight 117.93 kg; Height 5 ft. 10 in. (177.80 cm); Pain 7/10; 09:47 BP 130 / 79; Pulse 86; Resp 18; Pulse Ox 99% on R/A; Pain 6/10; em 10:52 BP 142 / 79; Pulse 64; Resp 18; Pulse Ox 100% on R/A; Pain 6/10; em 12:08 BP 127 / 79; Pulse 66; Resp 16; Pulse Ox 100% on R/A; Pain 4/10; em 08:50 Body Mass Index 37.31 (117.93 kg, 177.80 cm) ED Course: 08:40 Patient arrived in ED. mr 08:41 Cecilio Merida MD is Private Physician. mr 08:43 Lavon Isbell LVN is Primary Nurse. em 08:45 Florentino Georges PA is PHCP. m 08:45 Sinan Cole MD is Attending Physician. jmm 08:50 Arm band placed on right wrist. ss 08:57 Triage completed. ss 09:11 Patient has correct armband on for positive identification. Placed in gown. Bed in low em position. Call light in reach. Adult w/ patient. Pulse ox on. NIBP on. 09:11 Initial lab(s) drawn, by me, sent to lab. Inserted saline lock: 20 gauge in right em antecubital area, using aseptic technique. Blood collected. 11:47 Cecilio Merida MD is Referral Physician. [facility] 12:09 No provider procedures requiring assistance completed. IV discontinued, intact, em bleeding controlled, No redness/swelling at site. Pressure dressing applied. Administered Medications: 09:25 Drug: NS 0.9% 1000 ml Route: IV; Rate: 1 bolus; Site: right antecubital; em 10:16 Follow up: IV Status: Completed infusion; IV Intake: 1000ml em 09:27 Drug: morphine 4 mg Route: IVP; Site: right antecubital; ss 10:06 Follow up: Response: No adverse reaction; Pain is decreased; RASS: Alert and Calm (0) em 09:27 Drug: Zofran 4 mg Route: IVP; Site: right antecubital; ss 10:06 Follow up: Response: No adverse reaction; Pain is decreased em 10:16 Drug: TORadol 30 mg Route: IVP; Site: right antecubital; ss 10:50 Follow up: Response: No adverse reaction; Pain is unchanged, physician notified ss 10:16 Drug: Bentyl 20 mg Route: PO; em 10:50 Follow up: Response: No adverse reaction; Pain is unchanged, physician notified ss 11:00 Drug: morphine 4 mg Route: IVP; Site: right antecubital; ss 12:05 Follow up: Response: No adverse reaction; Pain is decreased; RASS: Alert and Calm (0) em 11:00 Drug: NS 0.9% 1000 ml Route: IV; Rate: 1 bolus; Site: right antecubital; ss 12:10 Follow up: IV Status: Completed infusion; IV Intake: 1000ml em Intake: 10:16 IV: 1000ml; Total: 1000ml. em 12:10 IV: 1000ml; Total: 2000ml. em Outcome: 11:48 Discharge ordered by . sonu 12:09 Discharged to home ambulatory. em 12:09 Condition: good 12:09 Discharge instructions given to patient, Instructed on discharge instructions, follow up and referral plans. medication usage, Demonstrated understanding of instructions, follow-up care, medications, Prescriptions given X 4. 12:11 Patient left the ED. em Signatures: Florentino Georges PA PA jmm Rivera, Mary mr MunozLavon, UNDERGROUND DRILL OPERATOR UNDERGROUND DRILL OPERATOR em Ursula Encinas, RN RN ss
--- NOTE | 2019-09-05 11:49 | EDPHYS ---
Physician Documentation [facility] Name: Slava Biswas Age: 34 yrs Sex: Male : 1985 Arrival Date: 09/05/2019 Time: 08:40 Bed 18 Private MD: Cecilio Merida ED Physician Sinan Cole HPI: 09/05 08:47 This 34 yrs old Male presents to ER via Ambulatory with complaints of jmm Abdominal Pain. 08:47 The patient presents with abdominal pain in the lower abdomen. Onset: The jmm symptoms/episode began/occurred gradually, this morning. The symptoms do not radiate. Associated signs and symptoms: Pertinent positives: diarrhea. The symptoms are described as achy. Modifying factors: The symptoms are alleviated by nothing, the symptoms are aggravated by nothing. This is a 34 year old male with a history of ulcerative colitis that presents to the ED with complaints of lower abdominal pain beginning this morning similar to previous UC flares. Denies fever but states having bloody diarrhea. . Historical: - Allergies: 08:52 Codeine (Hives, rash); ss 08:52 Tylenol-Codeine #3; ss - PMHx: 08:52 Colitis; GERD; ulcertive colitis; ss - PSHx: 08:52 Hernia repair; Tonsillectomy; septum; ss - Immunization history:: Adult Immunizations up to date. - Social history:: Smoking status: Patient/guardian denies using tobacco. - Ebola Screening: : Patient denies exposure to infectious person Patient denies travel to an Ebola-affected area in the 21 days before illness onset. ROS: 08:47 Constitutional: Negative for fever, chills, and weight loss, Cardiovascular: Negative jmm for chest pain, palpitations, and edema, Respiratory: Negative for shortness of breath, cough, wheezing, and pleuritic chest pain. 08:47 Abdomen/GI: Positive for abdominal pain, diarrhea. 08:47 All other systems are negative. Exam: 08:47 Constitutional: This is a well developed, well nourished patient who is awake, alert, jmm and in no acute distress. Head/Face: atraumatic. Eyes: EOMI, no conjunctival erythema appreciated ENT: Moist Mucus Membranes Neck: Trachea midline, Supple Chest/axilla: Normal chest wall appearance and motion. Cardiovascular: Regular rate and rhythm. No edema appreciated Respiratory: Normal respirations, no respiratory distress appreciated 08:47 Back: Normal ROM Skin: General appearance color normal MS/ Extremity: Moves all extremities, no obvious deformities appreciated, no edema noted to the lower extremities Neuro: Awake and alert, normal gait 08:47 Abdomen/GI: Inspection: abdomen appears normal, Bowel sounds: normal, Palpation: abdomen is soft and non-tender, in all quadrants. 08:47 Abdomen/GI: Inspection: Bowel sounds: Palpation: Vital Signs: 08:50 BP 142 / 104; Pulse 93; Resp 16; Temp 98.3(O); Pulse Ox 99% on R/A; Weight 117.93 kg; ss Height 5 ft. 10 in. (177.80 cm); Pain 7/10; 09:47 BP 130 / 79; Pulse 86; Resp 18; Pulse Ox 99% on R/A; Pain 6/10; em 10:52 BP 142 / 79; Pulse 64; Resp 18; Pulse Ox 100% on R/A; Pain 6/10; em 12:08 BP 127 / 79; Pulse 66; Resp 16; Pulse Ox 100% on R/A; Pain 4/10; em 08:50 Body Mass Index 37.31 (117.93 kg, 177.80 cm) ss MDM: 09:05 Patient medically screened. [facility] 11:46 Data reviewed: vital signs, nurses notes. Counseling: I had a detailed discussion with sonu the patient and/or guardian regarding: the historical points, exam findings, and any diagnostic results supporting the discharge/admit diagnosis, lab results, the need for outpatient follow up, to return to the emergency department if symptoms worsen or persist or if there are any questions or concerns that arise at home. ED course: Pain has decreased in the ED. Pain is similar in character to previous flares. I do not currently suspect appendicitis but patient was given strict return precautions Patient understood and agrees with the plan of care. . 09/05 08:47 Order name: Basic Metabolic Panel [facility] 09/05 08:47 Order name: CBC with Diff [facility] 09/05 08:47 Order name: Creatinine for Radiology; Complete Time: 09:37 [facility] 09/05 08:47 Order name: Hepatic Function; Complete Time: 10:04 [facility] 09/05 08:47 Order name: Lipase; Complete Time: 10:04 [facility] 09/05 08:47 Order name: Basic Metabolic Panel; Complete Time: 10:04 [facility] 09/05 08:47 Order name: CBC with Automated Diff; Complete Time: 09:37 [facility] 09/05 08:47 Order name: IV Saline Lock; Complete Time: 09:16 [facility] 09/05 08:47 Order name: Labs collected and sent; Complete Time: 09:16 [facility] Administered Medications: 09:25 Drug: NS 0.9% 1000 ml Route: IV; Rate: 1 bolus; Site: right antecubital; em 10:16 Follow up: IV Status: Completed infusion; IV Intake: 1000ml em 09:27 Drug: morphine 4 mg Route: IVP; Site: right antecubital; ss 10:06 Follow up: Response: No adverse reaction; Pain is decreased; RASS: Alert and Calm (0) em 09:27 Drug: Zofran 4 mg Route: IVP; Site: right antecubital; ss 10:06 Follow up: Response: No adverse reaction; Pain is decreased em 10:16 Drug: TORadol 30 mg Route: IVP; Site: right antecubital; ss 10:50 Follow up: Response: No adverse reaction; Pain is unchanged, physician notified ss 10:16 Drug: Bentyl 20 mg Route: PO; em 10:50 Follow up: Response: No adverse reaction; Pain is unchanged, physician notified ss 11:00 Drug: morphine 4 mg Route: IVP; Site: right antecubital; ss 12:05 Follow up: Response: No adverse reaction; Pain is decreased; RASS: Alert and Calm (0) em 11:00 Drug: NS 0.9% 1000 ml Route: IV; Rate: 1 bolus; Site: right antecubital; ss 12:10 Follow up: IV Status: Completed infusion; IV Intake: 1000ml em Disposition: 12:16 Co-signature as Attending Physician, Sinan Cole MD I agree with the assessment and kdr plan of care. Disposition: 09/05/19 11:48 Discharged to Home. Impression: Lower abdominal pain, unspecified, Other ulcerative colitis. - Condition is Stable. - Discharge Instructions: Abdominal Pain, Adult, Ulcerative Colitis, Adult. - Prescriptions for Zofran ODT 4 mg Oral tablet,disintegrating - place 1 tablet by TRANSLINGUAL route every 4-6 hours; 20 tablet. Cipro 500 mg Oral Tablet - take 1 tablet by ORAL route every 12 hours for 10 days; 20 tablet. Flagyl 500 mg Oral Tablet - take 1 tablet by ORAL route every 6 hours for 10 days; 40 tablet. Ultram 50 mg Oral Tablet - take 1 tablet by ORAL route every 6 hours As needed; 12 tablet. - Medication Reconciliation Form, Thank You Letter, Antibiotic Education, Prescription Opioid Use, Work release form form. - Follow up: Cecilio Merida MD; When: 2 - 3 days; Reason: Recheck today's complaints, Continuance of care, Re-evaluation by your physician. Signatures: Dispatcher [employer] EDMS Sinan Cole MD MD kdr Mickail, Joel, PA PA Lavon Grigsby, MONTESSORI TODDLER TEACHER MONTESSORI TODDLER TEACHER em Ursula Encinas RN RN ss Corrections: (The following items were deleted from the chart) 12:11 11:48 09/05/2019 11:48 Discharged to Home. Impression: Lower abdominal pain, em unspecified; Other ulcerative colitis. Condition is Stable. Forms are Medication Reconciliation Form, Thank You Letter, Antibiotic Education, Prescription Opioid Use. Follow up: Cecilio Merida; When: 2 - 3 days; Reason: Recheck today's complaints, Continuance of care, Re-evaluation by your physician. sonu
[2019-09-05 12:29] VITALS: TEMP 98.3
[2019-09-05 12:31] VITALS: O2SAT 100
[2019-09-05 12:32] VITALS: BP 127/79
== END 2019-09-05 12:11 | disposition home or self-care (01) ==
LOC: ER 08:38
DX: K51.80 Other ulcerative colitis without complications (principal); Z88.5 Allergy status to narcotic agent
CPT/HCPCS: 96361; 85025; 80048; 36415; 80076; 83690; 96375; 96374; 99284; J7030 ×2; J2405

== ENCOUNTER 2019-09-28 14:23 | Emergency (ER) | payer BC ==
--- OUTSIDE RECORDS SUMMARY | 2019-09-28 14:25 | XMS REPORT ---
:1985 [facility] [address] [place] [id number] Care Team Providers Name Role Phone Unavailable Unavailable Unavailable Problems This patient has no known problems. Allergies, Adverse Reactions, Alerts This patient has no known allergies or adverse reactions. Medications This patient has no known medications.
[2019-09-28] MEDS ORDERED: NA CHLORIDE 0.9% 1,000 ML ONE (15:08)
[2019-09-28] MEDS ORDERED: FENTANYL CITR 100 MCG/2 ML ONE (15:08)
[2019-09-28] MEDS ORDERED: ONDANSETRON 4 MG/2 ML VIAL ONE (15:08)
[2019-09-28 15:16] LABS: Absolute Lymphocytes (CBC) 1.8 K/uL (0.7-4.9); Basophils % 0.7 % (0-1.3); Hematocrit 43.3 % (39.6-49.0); Lymphocytes % 17.2 % (15.3-44.8); MPV 9.1 fL (7.6-11.3); RBC Red Blood Cell Count 4.95 M/uL (4.33-5.43)
[2019-09-28 15:45] LABS: Albumin 4.1 g/dL (3.4-5.0); Bilirubin Direct 0.1 mg/dL (0-0.2); Bilirubin Total 0.7 mg/dL (0.2-1.0); Potassium 3.6 mmol/L (3.5-5.1); Protein, Total 7.9 g/dL (6.4-8.2)
[2019-09-28] MEDS ORDERED: CIPROFLOXACIN HCL 500 MG TAB ONE (16:10)
[2019-09-28] MEDS ORDERED: MORPHINE 4 MG/ML SYR ONE (16:11)
[2019-09-28] MEDS ORDERED: METRONIDAZOLE 500mg IVPB 500 MG/100 ML BAG IV ONE (16:11)
--- NOTE | 2019-09-28 16:21 | ER ---
Nurse's Notes [facility] Name: Slava Biswas Age: 34 yrs Sex: Male : 1985 Arrival Date: 09/28/2019 Time: 14:25 Bed 18 Private MD: Cecilio Merida Diagnosis: Ulcerative colitis Presentation: 09/28 14:27 Presenting complaint: Patient states: RLQ abdominal pain with Diarrhea and small amount jl7 of blood in stool since about 1000 this morning. Transition of care: patient was not received from another setting of care. Onset of symptoms was September 28, 2019 at 10:00. Risk Assessment: Do you want to hurt yourself or someone else? Patient reports no desire to harm self or others. Initial Sepsis Screen: Does the patient meet any 2 criteria? HR > 90 bpm. No. Patient's initial sepsis screen is negative. Does the patient have a suspected source of infection? No. Patient's initial sepsis screen is negative. Care prior to arrival: None. 14:27 Method Of Arrival: Ambulatory [facility] 14:27 Acuity: TRACEE 3 jl7 Triage Assessment: 14:29 General: Appears in no apparent distress. uncomfortable, Behavior is calm, cooperative, jl7 appropriate for age. Pain: Complains of pain in right lower quadrant Pain currently is 7 out of 10 on a pain scale. Historical: - Allergies: 14:29 Codeine (Hives, rash); jl7 14:29 Tylenol-Codeine #3; jl7 - Home Meds: 14:29 Prilosec 40 mg Oral cpDR 1 cap 2 times per day [Active]; Probiotic Oral daily [Active]; jl7 - PMHx: 14:29 Colitis; GERD; ulcertive colitis; jl7 - PSHx: 14:29 Hernia repair; Tonsillectomy; septum; jl7 - Immunization history:: Adult Immunizations not up to date. - Social history:: Smoking status: Patient/guardian denies using tobacco. - Ebola Screening: : No symptoms or risks identified at this time. Screenin:40 Abuse screen: Denies threats or abuse. Denies injuries from another. Nutritional bp screening: No deficits noted. Tuberculosis screening: No symptoms or risk factors identified. Fall Risk None identified. Assessment: 14:30 General: SEE TRIAGE NOTE. bp 16:00 Reassessment: ABX INFUSING, PT EXPRESSING RELIEF OF S/S. bp 17:17 Reassessment: PT D/C HOME AMBULATORY, DX WITH ULCERATIVE COLITIS. bp Vital Signs: 14:29 BP 159 / 95; Pulse 116; Resp 19 S; Temp 99.5(O); Pulse Ox 99% on R/A; Weight 117.93 kg jl7 (R); Height 5 ft. 10 in. (177.80 cm) (R); Pain 7/10; 15:16 BP 133 / 87; Pulse 74; Resp 18; Temp 99.0(TE); Pulse Ox 97% on R/A; mh5 16:11 BP 131 / 75; Pulse 72; Resp 18; Temp 98.8(TE); Pulse Ox 100% on R/A; mh5 14:29 Body Mass Index 37.31 (117.93 kg, 177.80 cm) jl7 ED Course: 14:25 Patient arrived in ED. as 14:26 Cecilio Merida MD is Private Physician. as 14:28 Triage completed. jl7 14:29 Arm band placed on right wrist. jl7 14:31 Candido Weaver, HARSHA is Primary Nurse. bp 14:33 Luc Portillo, DIETARY SERVICES DIRECTOR is PHCP. pm1 14:33 Rei Noguera MD is Attending Physician. pm1 14:40 Patient has correct armband on for positive identification. Bed in low position. Call bp light in reach. Side rails up X2. 15:00 Inserted saline lock: 20 gauge in right antecubital area, using aseptic technique. bp Blood collected. 16:19 Pastor Marquez MD is Referral Physician. pm1 16:59 IV discontinued, Pressure dressing applied. mh5 17:18 No provider procedures requiring assistance completed. bp 17:18 IV discontinued, intact, bleeding controlled, No redness/swelling at site. Pressure bp dressing applied. Administered Medications: 15:00 Drug: NS 0.9% 1000 ml Route: IV; Rate: 1000 ml; Site: right antecubital; bp 17:01 Follow up: IV Status: Completed infusion; IV Intake: 1000ml bp 15:00 Drug: fentaNYL (PF) 50 mcg Route: IVP; Site: right antecubital; bp 17:01 Follow up: Response: Pain is decreased bp 15:00 Drug: Zofran 4 mg Route: IVP; Site: right antecubital; bp 17:01 Follow up: Response: Nausea is decreased bp 16:00 Drug: Cipro 500 mg Route: PO; bp 17:02 Follow up: Response: No adverse reaction bp 16:00 Drug: Flagyl 500 mg Volume: 100 ml; Route: IVPB; Rate: 200 ml/hr; Infused Over: 30 bp mins; Site: right antecubital; 17:02 Follow up: IV Status: Completed infusion bp 16:00 Drug: morphine 4 mg Route: IVP; Site: right antecubital; bp 17:02 Follow up: Response: Pain is decreased bp Intake: 17:01 IV: 1000ml; Total: 1000ml. bp Outcome: 16:20 Discharge ordered by MD. pm1 17:18 Discharged to home ambulatory. bp 17:18 Condition: stable 17:18 Discharge instructions given to patient, Instructed on discharge instructions, follow up and referral plans. medication usage, Demonstrated understanding of instructions, follow-up care, medications, Prescriptions given X 4. 17:19 Patient left the ED. bp Signatures: Malini Velazquez Patrick, FARRAH DIETARY SERVICES DIRECTOR pm1 Josseline Velazquez 5 Brittny Zepeda, RN RN jl7 Candido Weaver RN RN bp
--- NOTE | 2019-09-28 16:21 | EDPHYS ---
Physician Documentation [facility] Name: Slava Biswas Age: 34 yrs Sex: Male : 1985 Arrival Date: 09/28/2019 Time: 14:25 Bed 18 Private MD: Cecilio Merida ED Physician Rei Noguera HPI: 09/28 15:06 This 34 yrs old Male presents to ER via Ambulatory with complaints of pm1 Ulcerative Colitis. 15:06 The patient presents with abdominal pain in the lower abdomen. Onset: The pm1 symptoms/episode began/occurred this morning. The symptoms do not radiate. Associated signs and symptoms: Pertinent negatives: nausea, vomiting, and diarrhea, chest pain, dysuria, fever, shortness of breath, testicular pain. The symptoms are described as crampy. Modifying factors: The symptoms are alleviated by nothing, the symptoms are aggravated by nothing. Severity of pain: in the emergency department the pain is actually worse. The patient has experienced similar episodes in the past, multiple times, and the symptoms today are exactly the same, to previous ulcerative colitis. No different than prior UC flare ups. 15:06 Mucoid bloody stool x 3 prior to arrival. pm1 Historical: - Allergies: 14:29 Codeine (Hives, rash); jl7 14:29 Tylenol-Codeine #3; jl7 - Home Meds: 14:29 Prilosec 40 mg Oral cpDR 1 cap 2 times per day [Active]; Probiotic Oral daily [Active]; jl7 - PMHx: 14:29 Colitis; GERD; ulcertive colitis; jl7 - PSHx: 14:29 Hernia repair; Tonsillectomy; septum; jl7 - Immunization history:: Adult Immunizations not up to date. - Social history:: Smoking status: Patient/guardian denies using tobacco. - Ebola Screening: : No symptoms or risks identified at this time. ROS: 15:06 Constitutional: Negative for fever, chills, and weight loss, Eyes: Negative for injury, pm1 pain, redness, and discharge, ENT: Negative for injury, pain, and discharge, Neck: Negative for injury, pain, and swelling, Cardiovascular: Negative for chest pain, palpitations, and edema, Respiratory: Negative for shortness of breath, cough, wheezing, and pleuritic chest pain. 15:06 Back: Negative for injury and pain, : Negative for injury, bleeding, discharge, and swelling, MS/Extremity: Negative for injury and deformity, Skin: Negative for injury, rash, and discoloration, Neuro: Negative for headache, weakness, numbness, tingling, and seizure. 15:06 Abdomen/GI: Positive for abdominal pain, mucoid, bloody stool x 3, Negative for nausea, vomiting. Exam: 15:06 Constitutional: This is a well developed, well nourished patient who is awake, alert, pm1 and in no acute distress. Head/Face: Normocephalic, atraumatic. Neck: Trachea midline, no thyromegaly or masses palpated, and no cervical lymphadenopathy. Supple, full range of motion without nuchal rigidity, or vertebral point tenderness. No Meningismus. Chest/axilla: Normal chest wall appearance and motion. Nontender with no deformity. No lesions are appreciated. Cardiovascular: Regular rate and rhythm with a normal S1 and S2. No gallops, murmurs, or rubs. No pulse deficits. Respiratory: Lungs have equal breath sounds bilaterally, clear to auscultation and percussion. No rales, rhonchi or wheezes noted. No increased work of breathing, no retractions or nasal flaring. Back: No spinal tenderness. No costovertebral tenderness. Full range of motion. 15:06 Skin: Warm, dry with normal turgor. Normal color with no rashes, no lesions, and no evidence of cellulitis. MS/ Extremity: Pulses equal, no cyanosis. Neurovascular intact. Full, normal range of motion. 15:06 Abdomen/GI: Inspection: abdomen appears normal, Bowel sounds: normal, Palpation: abdomen is soft and non-tender, in all quadrants, mass, is not appreciated, rebound tenderness, is not appreciated. 15:06 Neuro: Orientation: is normal, Motor: is normal, moves all fours, Sensation: is normal, no obvious gross deficits, Gait: is steady, at a normal pace, without difficulty. Vital Signs: 14:29 BP 159 / 95; Pulse 116; Resp 19 S; Temp 99.5(O); Pulse Ox 99% on R/A; Weight 117.93 kg jl7 (R); Height 5 ft. 10 in. (177.80 cm) (R); Pain 7/10; 15:16 BP 133 / 87; Pulse 74; Resp 18; Temp 99.0(TE); Pulse Ox 97% on R/A; mh5 16:11 BP 131 / 75; Pulse 72; Resp 18; Temp 98.8(TE); Pulse Ox 100% on R/A; mh5 14:29 Body Mass Index 37.31 (117.93 kg, 177.80 cm) jl7 MDM: 14:35 Patient medically screened. pm1 16:18 Data reviewed: vital signs. Data interpreted: Pulse oximetry: on room air is 100 %. pm1 Interpretation: normal. Counseling: I had a detailed discussion with the patient and/or guardian regarding: the historical points, exam findings, and any diagnostic results supporting the discharge/admit diagnosis, lab results, the need for outpatient follow up, a technology specialist, to return to the emergency department if symptoms worsen or persist or if there are any questions or concerns that arise at home. 09/28 14:44 Order name: Basic Metabolic Panel; Complete Time: 15:56 pm1 09/28 14:44 Order name: CBC with Diff; Complete Time: 15:56 pm1 09/28 14:44 Order name: Creatinine for Radiology; Complete Time: 15:56 pm1 09/28 14:44 Order name: Hepatic Function; Complete Time: 15:56 pm1 09/28 14:44 Order name: Lipase; Complete Time: 15:56 pm1 09/28 14:44 Order name: IV Saline Lock; Complete Time: 15:14 pm1 09/28 14:44 Order name: Labs collected and sent; Complete Time: 15:14 pm1 Administered Medications: 15:00 Drug: NS 0.9% 1000 ml Route: IV; Rate: 1000 ml; Site: right antecubital; bp 17:01 Follow up: IV Status: Completed infusion; IV Intake: 1000ml bp 15:00 Drug: fentaNYL (PF) 50 mcg Route: IVP; Site: right antecubital; bp 17:01 Follow up: Response: Pain is decreased bp 15:00 Drug: Zofran 4 mg Route: IVP; Site: right antecubital; bp 17:01 Follow up: Response: Nausea is decreased bp 16:00 Drug: Cipro 500 mg Route: PO; bp 17:02 Follow up: Response: No adverse reaction bp 16:00 Drug: Flagyl 500 mg Volume: 100 ml; Route: IVPB; Rate: 200 ml/hr; Infused Over: 30 bp mins; Site: right antecubital; 17:02 Follow up: IV Status: Completed infusion bp 16:00 Drug: morphine 4 mg Route: IVP; Site: right antecubital; bp 17:02 Follow up: Response: Pain is decreased bp Disposition: 09/29 10:24 Co-signature as Attending Physician, Rei Noguera MD I agree with the assessment and umang plan of care. Disposition: 09/28/19 16:20 Discharged to Home. Impression: Ulcerative colitis. - Condition is Stable. - Discharge Instructions: Ulcerative Colitis, Adult. - Prescriptions for Flagyl 500 mg Oral Tablet - take 1 tablet by ORAL route every 8 hours for 10 days; 30 tablet. Cipro 500 mg Oral Tablet - take 1 tablet by ORAL route every 12 hours for 10 days; 20 tablet. Ultram 50 mg Oral Tablet - take 1 tablet by ORAL route every 6 hours As needed; 12 tablet. Zofran 4 mg Oral Tablet - take 1 tablet by ORAL route every 12 hours As needed; 20 tablet. - Medication Reconciliation Form, Thank You Letter, Antibiotic Education, Prescription Opioid Use form. - Follow up: Emergency Department; When: As needed; Reason: Worsening of condition. Follow up: Pastor Marquez MD; When: 2 - 3 days; Reason: Recheck today's complaints, Continuance of care, Re-evaluation by your physician. - Problem is new. - Symptoms have improved. Signatures: Dispatcher [employer] EDMT Rei Noguera MD MD cha Marinas, Patrick, TRAUMA MANAGER TRAUMA MANAGER pm1 Brittny Zepeda RN RN jl7 Candido Weaver RN RN bp Corrections: (The following items were deleted from the chart) 09/28 17:19 16:20 09/28/2019 16:20 Discharged to Home. Impression: Ulcerative colitis. Condition is bp Stable. Forms are Medication Reconciliation Form, Thank You Letter, Antibiotic Education, Prescription Opioid Use. Follow up: Emergency Department; When: As needed; Reason: Worsening of condition. Follow up: Pastor Mraquez; When: 2 - 3 days; Reason: Recheck today's complaints, Continuance of care, Re-evaluation by your physician. Problem is new. Symptoms have improved. pm1
[2019-09-28 17:45] VITALS: BP 131/75; TEMP 98.8; O2SAT 100
== END 2019-09-28 17:19 | disposition home or self-care (01) ==
LOC: ER 14:23
DX: K51.90 Ulcerative colitis, unspecified, without complications (principal); Z88.5 Allergy status to narcotic agent; Z88.6 Allergy status to analgesic agent
CPT/HCPCS: 96365; 96361; 85025; 80048; 36415; 80076; 83690; 96375; 99284; J3010; J7030; J2405

== ENCOUNTER 2019-10-12 12:19 | Emergency (ER) | payer BC ==
--- OUTSIDE RECORDS SUMMARY | 2019-10-12 12:21 | XMS REPORT ---
:1985 [facility] [address] [facility] [address] [place] [id number] Care Team Providers Name Role Phone Unavailable Unavailable Unavailable Problems This patient has no known problems. Allergies, Adverse Reactions, Alerts This patient has no known allergies or adverse reactions. Medications This patient has no known medications.
[2019-10-12] MEDS ORDERED: NA CHLORIDE 0.9% 1,000 ML ONE (14:16)
[2019-10-12] MEDS ORDERED: ONDANSETRON 4 MG/2 ML VIAL ONE (14:16)
[2019-10-12] MEDS ORDERED: FENTANYL CITR 100 MCG/2 ML ONE ×2 (14:17→16:11)
[2019-10-12 14:35] LABS: Absolute Lymphocytes (CBC) 1.8 K/uL (0.7-4.9); Basophils % 0.5 % (0-1.3); Hematocrit 43.8 % (39.6-49.0); Lymphocytes % 17.7 % (15.3-44.8); MPV 8.8 fL (7.6-11.3); RBC Red Blood Cell Count 4.93 M/uL (4.33-5.43)
[2019-10-12 14:53] LABS: ALT/SGPT 31 U/L (12-78); AST/SGOT 14 U/L (15-37); Albumin 3.9 g/dL (3.4-5.0); Alkaline Phosphatase 82 U/L (45-117); BUN Blood Urea Nitrogen 11 mg/dL (7-18); Bicarbonate 25 mmol/L (21-32); Bilirubin Direct < 0.1 mg/dL (0-0.2); Bilirubin Total 0.3 mg/dL (0.2-1.0); Glucose Level 104 mg/dL (74-106); Lipase 219 U/L (73-393); Protein, Total 7.9 g/dL (6.4-8.2); Sodium Level 142 mmol/L (136-145)
[2019-10-12] MEDS ORDERED: METRONIDAZOLE 500mg IVPB 500 MG/100 ML BAG IV ONE (15:32)
[2019-10-12] MEDS ORDERED: CIPROFLOXACIN 400mg IV 400 MG/200 ML BAG IV ONE (15:32)
--- NOTE | 2019-10-12 15:35 | RAD REPORT ---
EXAM DESCRIPTION: CT - Abdomen Pelvis W Contrast - 10/12/2019 3:17 pm CLINICAL HISTORY: Abdominal pain COMPARISON: 2017 TECHNIQUE: Computed axial tomography of the abdomen pelvis was obtained. 100 cc Isovue-300 was admin istered intravenously. Oral contrast was not requested which limits evaluation of bowel. All CT scans are performed using dose optimization technique as appropriate and may include automated exposure control or mA/KV adjustment according to patient size. FINDINGS: The liver, spleen, pancreas, adrenal and kidneys appear unremarkable. Normal appendix. Small hiatal hernia There is no evidence of diverticulitis. Wall of the transverse colon is mildly thickened IMPRESSION: Mild thickening of the wall of the transverse colon probably a mild colitis
--- NOTE | 2019-10-12 16:00 | ER ---
Nurse's Notes [facility] Name: Slava Biswas Age: 34 yrs Sex: Male : 1985 Arrival Date: 10/12/2019 Time: 12:22 Bed 17 Private MD: Cecilio Merida Diagnosis: Abdominal tenderness;Left sided colitis-mid transverse colon;Other ulcerative colitis Presentation: 10/12 13:08 Presenting complaint: Patient states: Abd pain and diarrhea that began last night. Pt ss reports it is a UC flare up. Transition of care: patient was not received from another setting of care. Onset of symptoms was October 11, 2019. Risk Assessment: Do you want to hurt yourself or someone else? Patient reports no desire to harm self or others. Care prior to arrival: None. 13:08 Method Of Arrival: Ambulatory ss 13:08 Acuity: TRACEE 3 ss 13:10 Initial Sepsis Screen: Does the patient meet any 2 criteria? No. Patient's initial ss sepsis screen is negative. Does the patient have a suspected source of infection? No. Patient's initial sepsis screen is negative. Historical: - Allergies: 13:09 Codeine (Hives, rash); ss - PMHx: 13:09 Colitis; GERD; ulcertive colitis; ss - PSHx: 13:09 Hernia repair; Tonsillectomy; septum; ss - Immunization history:: Adult Immunizations up to date. - Social history:: Smoking status: Patient/guardian denies using tobacco. - Ebola Screening: : Patient denies exposure to infectious person Patient denies travel to an Ebola-affected area in the 21 days before illness onset. - Family history:: not pertinent. Screenin:15 Abuse screen: Denies threats or abuse. Nutritional screening: No deficits noted. ss Tuberculosis screening: No symptoms or risk factors identified. Fall Risk None identified. Assessment: 14:15 General: Appears in no apparent distress. comfortable, Behavior is calm, cooperative, ss Denies fever. Pain: Complains of pain in abdomen Pain currently is 8 out of 10 on a pain scale. Neuro: Level of Consciousness is awake, alert, obeys commands, Oriented to person, place, time, situation, Appropriate for age. Cardiovascular: Capillary refill < 3 seconds Patient's skin is warm and dry. Respiratory: Airway is patent Respiratory effort is even, unlabored, Respiratory pattern is regular, symmetrical. GI: Abdomen is flat, Bowel sounds present X 4 quads. Abd is soft X 4 quads Abdomen is tender to palpation in right lower quadrant and left lower quadrant Reports diarrhea, bloody stool, nausea, Patient currently denies vomiting. Derm: Skin is intact, is healthy with good turgor, Skin is pink, warm \T\ dry. Musculoskeletal: Capillary refill < 3 seconds, Range of motion: intact in all extremities. 16:32 Reassessment: Patient appears in no apparent distress at this time. Patient and/or em family updated on plan of care and expected duration. Pain level reassessed. Patient is alert, oriented x 3, equal unlabored respirations, skin warm/dry/pink. Vital Signs: 13:09 Pulse 89; Resp 17; Temp 98.2(TE); Pulse Ox 98% on R/A; Weight 117.93 kg; Height 5 ft. ss 10 in. (177.80 cm); Pain 8/10; 13:10 BP 127 / 96; ss 15:30 BP 137 / 84; Pulse 87; Resp 18; Pulse Ox 99% on R/A; Pain 7/10; em 16:33 BP 136 / 84; Pulse 84; Pulse Ox 100% on R/A; Pain 7/10; em 13:09 Body Mass Index 37.31 (117.93 kg, 177.80 cm) ss ED Course: 12:22 Patient arrived in ED. as 12:23 Cecilio Merida MD is Private Physician. as 13:08 Triage completed. ss 13:09 Arm band placed on right wrist. 13:40 Rei Noguera MD is Attending Physician. [facility] 13:41 Lavon Isbell LVN is Primary Nurse. em 14:15 Patient has correct armband on for positive identification. Placed in gown. Bed in low ss position. Call light in reach. Adult w/ patient. Pulse ox on. NIBP on. 14:25 Initial lab(s) drawn, by me, sent to lab. Inserted saline lock: 20 gauge in right ss antecubital area, using aseptic technique. Blood collected. 15:19 CT Abd/Pelvis - PO and IV Contrast In Process Unspecified. EDMS 15:57 Cecilio Merida MD is Referral Physician. umang 16:03 Pastor Marquez MD is Referral Physician. umang 16:34 No provider procedures requiring assistance completed. em 17:17 IV discontinued, intact, bleeding controlled, No redness/swelling at site. Pressure ss dressing applied. Administered Medications: 14:30 Drug: Zofran 4 mg Route: IVP; Site: right antecubital; ss 16:01 Follow up: Response: No adverse reaction; Nausea is decreased em 14:31 Drug: NS 0.9% 1000 ml Route: IV; Rate: 1 bolus; Site: right antecubital; em 14:32 Drug: fentaNYL (PF) 50 mcg Route: IVP; Site: right antecubital; ss 16:00 Follow up: Response: No adverse reaction; Pain is unchanged, physician notified em 15:48 Drug: Cipro 400 mg Volume: 200 ml; Route: IVPB; Infused Over: 60 mins; Site: right ss antecubital; 15:48 Drug: Flagyl 500 mg Volume: 100 ml; Route: IVPB; Rate: 200 ml/hr; Infused Over: 30 ss mins; Site: right antecubital; 16:23 Drug: fentaNYL (PF) 50 mcg Route: IVP; Site: right antecubital; em 16:55 Drug: SOLU-Medrol 125 mg Route: IVP; Site: right antecubital; Outcome: 15:59 Discharge ordered by . [facility] 17:15 Discharged to home ambulatory. ss 17:15 Condition: good 17:15 Discharge instructions given to patient, Instructed on discharge instructions, follow up and referral plans. medication usage, Demonstrated understanding of instructions, follow-up care, medications, Prescriptions given X 7 17:27 Patient left the ED. ss Signatures: Dispatcher [employer] Rei Dowling MD MD cha Munoz, Edgar, MEDICAL MANAGEMENT SPECIALIST MEDICAL MANAGEMENT SPECIALIST Malini Subramanian Shelby, RN RN ss
--- NOTE | 2019-10-12 16:01 | EDPHYS ---
Physician Documentation [facility] Name: Slava Biswas Age: 34 yrs Sex: Male : 1985 Arrival Date: 10/12/2019 Time: 12:22 Bed 17 Private MD: Cecilio Merida ED Physician Rei Noguera HPI: 10/12 15:52 This 34 yrs old Male presents to ER via Ambulatory with complaints of umang Abdominal Pain - uc flare. 15:52 The patient presents with abdominal pain in the epigastric area, in the upper abdomen, umang abdominal distention in the upper abdomen, in the lower abdomen. Onset: The symptoms/episode began/occurred 3 day(s) ago. The patient presents to the emergency department with nausea, diarrhea, abdominal pain, of the epigastric area, right upper quadrant and left upper quadrant. Onset: The symptoms/episode began/occurred 3 day(s) ago. Possible causes: flare up of bowel problem, ulcerative colitis. The symptoms are aggravated by nothing. The symptoms are alleviated by nothing. Associated signs and symptoms: The patient has no apparent associated signs or symptoms. Historical: - Allergies: 13:09 Codeine (Hives, rash); ss - PMHx: 13:09 Colitis; GERD; ulcertive colitis; ss - PSHx: 13:09 Hernia repair; Tonsillectomy; septum; ss - Immunization history:: Adult Immunizations up to date. - Social history:: Smoking status: Patient/guardian denies using tobacco. - Ebola Screening: : Patient denies exposure to infectious person Patient denies travel to an Ebola-affected area in the 21 days before illness onset. - Family history:: not pertinent. ROS: 15:52 Constitutional: Negative for fever, chills, and weight loss, Eyes: Negative for injury, umang pain, redness, and discharge, ENT: Negative for injury, pain, and discharge, Neck: Negative for injury, pain, and swelling, Cardiovascular: Negative for chest pain, palpitations, and edema, Respiratory: Negative for shortness of breath, cough, wheezing, and pleuritic chest pain, Back: Negative for injury and pain, : Negative for injury, bleeding, discharge, and swelling, MS/Extremity: Negative for injury and deformity, Skin: Negative for injury, rash, and discoloration, Neuro: Negative for headache, weakness, numbness, tingling, and seizure, Psych: Negative for depression, anxiety, suicide ideation, homicidal ideation, and hallucinations, Allergy/Immunology: Negative for hives, rash, and allergies, Endocrine: Negative for neck swelling, polydipsia, polyuria, polyphagia, and marked weight changes, Hematologic/Lymphatic: Negative for swollen nodes, abnormal bleeding, and unusual bruising. 15:52 Abdomen/GI: Positive for abdominal pain, nausea, diarrhea, of the epigastric area, right upper quadrant and left upper quadrant. Exam: 15:52 Constitutional: This is a well developed, well nourished patient who is awake, alert, umang and in no acute distress. Head/Face: Normocephalic, atraumatic. Eyes: Pupils equal round and reactive to light, extra-ocular motions intact. Lids and lashes normal. Conjunctiva and sclera are non-icteric and not injected. Cornea within normal limits. Periorbital areas with no swelling, redness, or edema. ENT: Nares patent. No nasal discharge, no septal abnormalities noted. Tympanic membranes are normal and external auditory canals are clear. Oropharynx with no redness, swelling, or masses, exudates, or evidence of obstruction, uvula midline. Mucous membranes moist. Neck: Trachea midline, no thyromegaly or masses palpated, and no cervical lymphadenopathy. Supple, full range of motion without nuchal rigidity, or vertebral point tenderness. No Meningismus. Chest/axilla: Normal chest wall appearance and motion. Nontender with no deformity. No lesions are appreciated. Cardiovascular: Regular rate and rhythm with a normal S1 and S2. No gallops, murmurs, or rubs. Normal PMI, no JVD. No pulse deficits. Respiratory: Lungs have equal breath sounds bilaterally, clear to auscultation and percussion. No rales, rhonchi or wheezes noted. No increased work of breathing, no retractions or nasal flaring. Back: No spinal tenderness. No costovertebral tenderness. Full range of motion. Male : Normal genitalia with no discharge or lesions. Skin: Warm, dry with normal turgor. Normal color with no rashes, no lesions, and no evidence of cellulitis. MS/ Extremity: Pulses equal, no cyanosis. Neurovascular intact. Full, normal range of motion. Neuro: Awake and alert, GCS 15, oriented to person, place, time, and situation. Cranial nerves II-XII grossly intact. Motor strength 5/5 in all extremities. Sensory grossly intact. Cerebellar exam normal. Normal gait. Psych: Awake, alert, with orientation to person, place and time. Behavior, mood, and affect are within normal limits. 15:52 Abdomen/GI: Inspection: abdomen appears normal, Bowel sounds: normal, Palpation: moderate abdominal tenderness, Liver: no appreciated palpable abnormalities, Hernia: not appreciated. Vital Signs: 13:09 Pulse 89; Resp 17; Temp 98.2(TE); Pulse Ox 98% on R/A; Weight 117.93 kg; Height 5 ft. ss 10 in. (177.80 cm); Pain 8/10; 13:10 BP 127 / 96; ss 15:30 BP 137 / 84; Pulse 87; Resp 18; Pulse Ox 99% on R/A; Pain 7/10; em 16:33 BP 136 / 84; Pulse 84; Pulse Ox 100% on R/A; Pain 7/10; em 13:09 Body Mass Index 37.31 (117.93 kg, 177.80 cm) MDM: 13:42 Patient medically screened. [facility] 15:57 Data reviewed: vital signs, nurses notes, lab test result(s), EKG, radiologic studies, [facility] CT scan, plain films. 10/12 13:41 Order name: Basic Metabolic Panel; Complete Time: 14:59 [facility] 10/12 13:41 Order name: CBC with Diff; Complete Time: 14:49 [facility] 10/12 13:41 Order name: Creatinine for Radiology; Complete Time: 14:59 [facility] 10/12 13:41 Order name: Hepatic Function; Complete Time: 14:59 [facility] 10/12 13:41 Order name: Lipase; Complete Time: 14:59 [facility] 10/12 13:41 Order name: CT Abd/Pelvis - PO and IV Contrast [facility] 10/12 13:41 Order name: IV Saline Lock; Complete Time: 14:32 [facility] 10/12 13:41 Order name: Labs collected and sent; Complete Time: 14:32 [facility] Administered Medications: 14:30 Drug: Zofran 4 mg Route: IVP; Site: right antecubital; ss 16:01 Follow up: Response: No adverse reaction; Nausea is decreased em 14:31 Drug: NS 0.9% 1000 ml Route: IV; Rate: 1 bolus; Site: right antecubital; em 14:32 Drug: fentaNYL (PF) 50 mcg Route: IVP; Site: right antecubital; ss 16:00 Follow up: Response: No adverse reaction; Pain is unchanged, physician notified em 15:48 Drug: Cipro 400 mg Volume: 200 ml; Route: IVPB; Infused Over: 60 mins; Site: right ss antecubital; 15:48 Drug: Flagyl 500 mg Volume: 100 ml; Route: IVPB; Rate: 200 ml/hr; Infused Over: 30 ss mins; Site: right antecubital; 16:23 Drug: fentaNYL (PF) 50 mcg Route: IVP; Site: right antecubital; em 16:55 Drug: SOLU-Medrol 125 mg Route: IVP; Site: right antecubital; Disposition: 10/12/19 15:59 Discharged to Home. Impression: Abdominal tenderness, Left sided colitis - mid transverse colon, Other ulcerative colitis. - Condition is Stable. - Discharge Instructions: Abdominal Pain, Adult, Food Choices to Help Relieve Diarrhea, Adult, Diarrhea, Adult, Ulcerative Colitis, Adult, Abdominal Pain, Adult, [id number], Diarrhea, Adult, [id number], Colitis. - Prescriptions for Bentyl 20 mg Oral Tablet - take 1 tablet by ORAL route every 6 hours As needed; 20 tablet. Flagyl 500 mg Oral Tablet - take 1 tablet by ORAL route every 6 hours for 7 days; 28 tablet. Pepcid 20 mg Oral Tablet - take 1 tablet by ORAL route every 12 hours for 10 days; 20 tablet. Prednisone 20 mg Oral Tablet - take 1 tablet by ORAL route once daily for 5 days; 5 tablet. Zofran 4 mg Oral Tablet - take 1 tablet by ORAL route every 12 hours As needed; 20 tablet. Cipro 500 mg Oral Tablet - take 1 tablet by ORAL route every 12 hours for 7 days; 14 tablet. Tramadol 50 mg Oral Tablet - take 1 tablet by ORAL route every 8 hours as needed; 24 tablet. - Medication Reconciliation Form, Thank You Letter, Antibiotic Education, Prescription Opioid Use form. - Follow up: Cecilio Merida MD; When: 2 - 3 days; Reason: Recheck today's complaints, Continuance of care, Re-evaluation by your physician. Follow up: Pastor Marquez MD; When: 2 - 3 days; Reason: Recheck today's complaints, Continuance of care, Re-evaluation by your physician. - Problem is new. - Symptoms have improved. Signatures: Dispatcher [employer] Rei Dowling MD MD cha Munoz, Edgar, UNMANNED EQUIPMENT OPERATOR UNMANNED EQUIPMENT OPERATOR em Ursula Encinas RN RN ss Corrections: (The following items were deleted from the chart) 16:03 15:59 10/12/2019 15:59 Discharged to Home. Impression: Abdominal tenderness; Left sided umang colitis - mid transverse colon; Other ulcerative colitis. Condition is Stable. Forms are Medication Reconciliation Form, Thank You Letter, Antibiotic Education, Prescription Opioid Use. Follow up: Cecilio Merida; When: 2 - 3 days; Reason: Recheck today's complaints, Continuance of care, Re-evaluation by your physician. Problem is new. Symptoms have improved. [facility] 16:14 13:42 Urine Dipstick-Ancillary ordered. [facility] 17:27 16:03 10/12/2019 15:59 Discharged to Home. Impression: Abdominal tenderness; Left sided ss colitis - mid transverse colon; Other ulcerative colitis. Condition is Stable. Discharge Instructions: Abdominal Pain, Adult, Ulcerative Colitis, Adult, Abdominal Pain, Adult, [id number], Colitis, Food Choices to Help Relieve Diarrhea, Adult, Diarrhea, Adult, Diarrhea, Adult, [id number]. Prescriptions for Bentyl 20 mg Oral Tablet - take 1 tablet by ORAL route every 6 hours As needed; 20 tablet, Flagyl 500 mg Oral Tablet - take 1 tablet by ORAL route every 6 hours for 7 days; 28 tablet, Pepcid 20 mg Oral Tablet - take 1 tablet by ORAL route every 12 hours for 10 days; 20 tablet, Prednisone 20 mg Oral Tablet - take 1 tablet by ORAL route once daily for 5 days; 5 tablet, Zofran 4 mg Oral Tablet - take 1 tablet by ORAL route every 12 hours As needed; 20 tablet, Cipro 500 mg Oral Tablet - take 1 tablet by ORAL route every 12 hours for 7 days; 14 tablet. and Forms are Medication Reconciliation Form, Thank You Letter, Antibiotic Education, Prescription Opioid Use. Follow up: Cecilio Merida; When: 2 - 3 days; Reason: Recheck today's complaints, Continuance of care, Re-evaluation by your physician. Follow up: Pastor Jimmy; When: 2 - 3 days; Reason: Recheck today's complaints, Continuance of care, Re-evaluation by your physician. Problem is new. Symptoms have improved. umang
[2019-10-12] MEDS ORDERED: METHYLPREDNISOLONE 125 MG INJ ONE (16:44)
[2019-10-12 18:55] VITALS: TEMP 98.2
[2019-10-12 18:59] VITALS: BP 136/84; O2SAT 100
== END 2019-10-12 17:27 | disposition home or self-care (01) ==
LOC: ER 12:19
DX: K51.50 Left sided colitis without complications (principal); K51.80 Other ulcerative colitis without complications; Z88.5 Allergy status to narcotic agent
CPT/HCPCS: 85025; 80048; 36415; 80076; 83690; 74177; 96375; 96374; 99284; Q9967; J3010 ×2; J7030; J2930; J2405; J0744

== ENCOUNTER 2019-10-26 13:40 | Emergency (ER) | payer BC ==
--- OUTSIDE RECORDS SUMMARY | 2019-10-26 13:42 | XMS REPORT ---
:1985 [facility] [address] [place] [id number] Care Team Providers Name Role Phone Unavailable Unavailable Unavailable Problems This patient has no known problems. Allergies, Adverse Reactions, Alerts This patient has no known allergies or adverse reactions. Medications This patient has no known medications.
[2019-10-26 14:18] LABS: Absolute Lymphocytes (CBC) 1.6 K/uL (0.7-4.9); Basophils % 0.3 % (0-1.3); Hematocrit 44.5 % (39.6-49.0); Lymphocytes % 15.1 % (15.3-44.8); MPV 8.5 fL (7.6-11.3); RBC Red Blood Cell Count 5.06 M/uL (4.33-5.43)
[2019-10-26] MEDS ORDERED: ONDANSETRON 4 MG/2 ML VIAL ONE (14:21)
[2019-10-26] MEDS ORDERED: NA CHLORIDE 0.9% 1,000 ML ONE (14:21)
[2019-10-26] MEDS ORDERED: dexAMETHasone 10 MG/ML VIAL ONE (14:21)
[2019-10-26] MEDS ORDERED: MORPHINE 4 MG/ML SYR ONE ×2 (14:23→15:10)
[2019-10-26 14:38] LABS: Albumin 3.9 g/dL (3.4-5.0); Bilirubin Direct 0.1 mg/dL (0-0.2); Bilirubin Total 0.5 mg/dL (0.2-1.0); Potassium 3.9 mmol/L (3.5-5.1); Protein, Total 7.9 g/dL (6.4-8.2)
--- NOTE | 2019-10-26 16:14 | EDPHYS ---
Physician Documentation [facility] Name: Slava Biswas Age: 34 yrs Sex: Male : 1985 Arrival Date: 10/26/2019 Time: 13:42 Bed 18 Private MD: ED Physician Bacilio Newton HPI: 10/26 14:37 This 34 yrs old Male presents to ER via Ambulatory with complaints of rn Abdominal Pain. 14:37 The patient presents with abdominal pain in the lower abdomen. Onset: The rn symptoms/episode began/occurred this morning. Associated signs and symptoms: Pertinent positives: nausea, Pertinent negatives: chest pain, constipation, dysuria, shortness of breath, testicular pain. The symptoms are described as crampy, sharp. Modifying factors: The symptoms are alleviated by nothing, the symptoms are aggravated by touching the area. Severity of pain: At its worst the pain was moderate in the emergency department the pain is unchanged. The patient has experienced similar episodes in the past. Reports abd pain and nausea identical to previous ulcerative colitis flares. Had recent colonoscopy and biopsy by GI, pending results, pain began again this morning, no fever, no vomiting, + nausea. Is not on daily medication. . Historical: - Allergies: 13:51 Codeine (Hives, rash); aj1 13:51 Tylenol-Codeine #3; aj1 - Home Meds: 13:51 Prilosec 40 mg Oral cpDR 1 cap 2 times per day [Active]; Probiotic Oral daily [Active]; aj1 - PMHx: 13:51 Colitis; GERD; ulcertive colitis; aj1 - Immunization history:: Flu vaccine is up to date. - Social history:: Smoking status: Patient/guardian denies using tobacco. - Ebola Screening: : Patient denies travel to an Ebola-affected area in the 21 days before illness onset. - Family history:: not pertinent. - Hospitalizations: : No recent hospitalization is reported. ROS: 14:37 Constitutional: Negative for fever, chills, and weight loss, Eyes: Negative for injury, rn pain, redness, and discharge, Cardiovascular: Negative for chest pain, palpitations, and edema, Respiratory: Negative for shortness of breath, cough, wheezing, and pleuritic chest pain, Abdomen/GI: + abd pain and nausea Back: Negative for injury and pain, : Negative for injury, bleeding, discharge, and swelling, MS/Extremity: Negative for injury and deformity, Neuro: Negative for headache, weakness, numbness, tingling, and seizure. Exam: 14:37 Constitutional: This is a well developed, well nourished patient who is awake, alert, rn and in no acute distress. Head/Face: Normocephalic, atraumatic. ENT: MMM Cardiovascular: Tachycardic, regular Respiratory: No increased work of breathing, no retractions or nasal flaring. Abdomen/GI: soft, mild lower abd tenderness, no rebound Skin: Warm, dry with normal turgor. Normal color with no rashes, no lesions, and no evidence of cellulitis. MS/ Extremity: Pulses equal, no cyanosis. Neurovascular intact. Full, normal range of motion. Equal circumference. Neuro: Awake and alert, GCS 15, oriented to person, place, time, and situation. Cranial nerves II-XII grossly intact. Motor strength 5/5 in all extremities. Sensory grossly intact. Cerebellar exam normal. Normal gait. Vital Signs: 13:51 BP 148 / 102; Pulse 128; Resp 20; Temp 98.8; Pulse Ox 100% on R/A; Weight 117.93 kg aj1 (R); Height 5 ft. 10 in. (177.80 cm) (R); Pain 7/10; 14:45 BP 129 / 83; Pulse 92; Resp 19; Pulse Ox 99% on R/A; Pain 7/10; rb1 15:32 BP 122 / 81; Pulse 85; Resp 17; Pulse Ox 99% on R/A; rb1 16:22 BP 125 / 76; Pulse 79; Resp 19; Pulse Ox 99% on R/A; Pain 5/10; rb1 13:51 Body Mass Index 37.31 (117.93 kg, 177.80 cm) aj1 MDM: 13:53 Patient medically screened. rn 16:11 Differential diagnosis: ulcerative colitis. Data reviewed: vital signs, nurses notes, rn old medical records, lab test result(s), and as a result, I will discharge patient. Counseling: I had a detailed discussion with the patient and/or guardian regarding: the historical points, exam findings, and any diagnostic results supporting the discharge/admit diagnosis, lab results, the need for outpatient follow up, to return to the emergency department if symptoms worsen or persist or if there are any questions or concerns that arise at home. Response to treatment: the patient's symptoms have markedly improved after treatment, and as a result, I will discharge patient. Special discussion: I discussed with the patient/guardian in detail that at this point there is no indication for admission to the hospital. It is understood, however, that if the symptoms persist or worsen the patient needs to return immediately for re-evaluation. Based on the history and exam findings, there is no indication for further emergent testing or inpatient evaluation. I discussed with the patient/guardian the need to see the provider relations rep for further evaluation of the symptoms. ED course: Pt improved, is watching football and on phone, normalization of vitals, normal WBC, will dc home with GI f/u, steroids, pain meds, zofran. . 10/26 14:06 Order name: Basic Metabolic Panel; Complete Time: 15:04 rn 10/26 14:06 Order name: CBC with Diff; Complete Time: 15:04 rn 10/26 14:06 Order name: Hepatic Function; Complete Time: 15:04 rn 10/26 14:06 Order name: Lipase; Complete Time: 15:04 rn 10/26 14:06 Order name: IV Saline Lock; Complete Time: 14:34 rn 10/26 14:06 Order name: Labs collected and sent; Complete Time: 14:34 rn Administered Medications: 14:20 Drug: NS 0.9% 1000 ml Route: IV; Rate: 1000 ml; Site: right antecubital; rb1 14:20 Drug: Decadron - Dexamethasone 10 mg Route: IVP; Site: right antecubital; rb1 14:35 Follow up: Response: No adverse reaction rb1 14:20 Drug: Zofran 4 mg Route: IVP; Site: right antecubital; rb1 14:35 Follow up: Response: No adverse reaction; Nausea is decreased rb1 14:20 Drug: morphine 4 mg Route: IVP; Site: right antecubital; rb1 14:35 Follow up: Response: No adverse reaction; Pain is unchanged, physician notified rb1 15:10 Drug: morphine 4 mg Route: IVP; Site: right antecubital; rb1 15:25 Follow up: Response: No adverse reaction; Pain is decreased rb1 Disposition: 10/26/19 16:13 Discharged to Home. Impression: Ulcerative colitis, unspecified. - Condition is Stable. - Discharge Instructions: Ulcerative Colitis, Adult. - Prescriptions for Zofran ODT 4 mg Oral tablet,disintegrating - place 1 tablet by TRANSLINGUAL route every 8 hours As needed; 20 tablet. Tramadol 50 mg Oral Tablet - take 1 tablet by ORAL route every 8 hours As needed as needed; 20 tablet. Medrol (Thee) 4 mg Oral Tablets, Dose Pack - take 1 tablet by ORAL route as directed - follow package instructions; 1 packet. - Medication Reconciliation Form, Thank You Letter, Antibiotic Education, Prescription Opioid Use, Work release form form. - Follow up: Private Physician; When: As needed; Reason: Recheck today's complaints, Re-evaluation by your physician. - Problem is new. - Symptoms have improved. Signatures: Dispatcher [employer] EDMarietta Lake RN RN aj1 Bacilio Newton MD MD rn Barber, Rebecca, RN RN rb1 Corrections: (The following items were deleted from the chart) 16:31 16:13 10/26/2019 16:13 Discharged to Home. Impression: Ulcerative colitis, unspecified. rb1 Condition is Stable. Forms are Work release form, Medication Reconciliation Form, Thank You Letter, Antibiotic Education, Prescription Opioid Use. Follow up: Private Physician; When: As needed; Reason: Recheck today's complaints, Re-evaluation by your physician. Problem is new. Symptoms have improved. rn
--- NOTE | 2019-10-26 16:14 | ER ---
Nurse's Notes [facility] Name: Slava Biswas Age: 34 yrs Sex: Male : 1985 Arrival Date: 10/26/2019 Time: 13:42 Bed 18 Private MD: Diagnosis: Ulcerative colitis, unspecified Presentation: 10/26 13:50 Presenting complaint: Patient states: "Im having a flare up of my ulcerative colitis, aj1 Lots of nausea and diarrhea and stomach pain" Reports that the pain started at 0400 today. Denies fever. Transition of care: patient was not received from another setting of care. Onset of symptoms was October 26, 2019. Risk Assessment: Do you want to hurt yourself or someone else? Patient reports no desire to harm self or others. Initial Sepsis Screen: Does the patient meet any 2 criteria? No. Patient's initial sepsis screen is negative. Does the patient have a suspected source of infection? Yes: Acute abdominal pain. Care prior to arrival: None. 13:50 Method Of Arrival: Ambulatory aj1 13:50 Acuity: TRACEE 3 aj1 Triage Assessment: 13:51 General: Appears in no apparent distress. comfortable, Behavior is calm, cooperative, aj1 appropriate for age. Pain: Complains of pain in abdomen. Neuro: Level of Consciousness is awake, alert, obeys commands. Cardiovascular: Patient's skin is warm and dry. Respiratory: Airway is patent Respiratory effort is even, unlabored, Respiratory pattern is regular, symmetrical. GI: Reports diarrhea. Historical: - Allergies: 13:51 Codeine (Hives, rash); aj1 13:51 Tylenol-Codeine #3; aj1 - Home Meds: 13:51 Prilosec 40 mg Oral cpDR 1 cap 2 times per day [Active]; Probiotic Oral daily [Active]; aj1 - PMHx: 13:51 Colitis; GERD; ulcertive colitis; aj1 - Immunization history:: Flu vaccine is up to date. - Social history:: Smoking status: Patient/guardian denies using tobacco. - Ebola Screening: : Patient denies travel to an Ebola-affected area in the 21 days before illness onset. - Family history:: not pertinent. - Hospitalizations: : No recent hospitalization is reported. Screenin:55 Abuse screen: Denies threats or abuse. Nutritional screening: No deficits noted. rb1 Tuberculosis screening: No symptoms or risk factors identified. Fall Risk None identified. Assessment: 13:55 General: Appears in no apparent distress. comfortable, Behavior is calm, cooperative, rb1 Denies fever. Pain: Complains of pain in abdomen Pain began 0400 today. Neuro: Level of Consciousness is awake, alert, obeys commands, Oriented to person, place, time, situation. Cardiovascular: Capillary refill < 3 seconds is brisk in bilateral fingers. Respiratory: Airway is patent Respiratory effort is even, unlabored, Respiratory pattern is regular, symmetrical. GI: Bowel sounds present X 4 quads. Abd is soft Reports diarrhea, nausea. : No signs and/or symptoms were reported regarding the genitourinary system. Derm: Skin is pink, warm \\T\\ dry. Musculoskeletal: Range of motion: intact in all extremities. 14:47 Reassessment: Patient appears in no apparent distress at this time. No changes from rb1 previously documented assessment. 15:45 Reassessment: Patient appears in no apparent distress at this time. Patient and/or rb1 family updated on plan of care and expected duration. Pain level reassessed. Patient is alert, oriented x 3, equal unlabored respirations, skin warm/dry/pink. 16:22 Reassessment: Patient appears in no apparent distress at this time. No changes from rb1 previously documented assessment. Vital Signs: 13:51 BP 148 / 102; Pulse 128; Resp 20; Temp 98.8; Pulse Ox 100% on R/A; Weight 117.93 kg aj1 (R); Height 5 ft. 10 in. (177.80 cm) (R); Pain 7/10; 14:45 BP 129 / 83; Pulse 92; Resp 19; Pulse Ox 99% on R/A; Pain 7/10; rb1 15:32 BP 122 / 81; Pulse 85; Resp 17; Pulse Ox 99% on R/A; rb1 16:22 BP 125 / 76; Pulse 79; Resp 19; Pulse Ox 99% on R/A; Pain 5/10; rb1 13:51 Body Mass Index 37.31 (117.93 kg, 177.80 cm) aj1 ED Course: 13:42 Patient arrived in ED. ag5 13:51 Triage completed. aj1 13:51 Arm band placed on Patient placed in an exam room. aj1 13:53 Bacilio Newton MD is Attending Physician. rn 13:55 Patient has correct armband on for positive identification. Bed in low position. Call rb1 light in reach. Side rails up X 1. Pulse ox on. NIBP on. 14:02 Initial lab(s) drawn, by me, sent to lab. Inserted saline lock: 22 gauge in right kj1 antecubital area, using aseptic technique. Blood collected. 14:05 Jaz Agustin, RN is Primary Nurse. rb1 16:31 No provider procedures requiring assistance completed. IV discontinued, intact, rb1 bleeding controlled, No redness/swelling at site. Pressure dressing applied. Administered Medications: 14:20 Drug: NS 0.9% 1000 ml Route: IV; Rate: 1000 ml; Site: right antecubital; rb1 14:20 Drug: Decadron - Dexamethasone 10 mg Route: IVP; Site: right antecubital; rb1 14:35 Follow up: Response: No adverse reaction rb1 14:20 Drug: Zofran 4 mg Route: IVP; Site: right antecubital; rb1 14:35 Follow up: Response: No adverse reaction; Nausea is decreased rb1 14:20 Drug: morphine 4 mg Route: IVP; Site: right antecubital; rb1 14:35 Follow up: Response: No adverse reaction; Pain is unchanged, physician notified rb1 15:10 Drug: morphine 4 mg Route: IVP; Site: right antecubital; rb1 15:25 Follow up: Response: No adverse reaction; Pain is decreased rb1 Outcome: 16:13 Discharge ordered by . rn 16:31 Patient left the ED. rb1 16:31 Discharged to home ambulatory. rb1 16:31 Condition: stable 16:31 Discharge instructions given to patient, Instructed on discharge instructions, follow up and referral plans. medication usage, Demonstrated understanding of instructions, follow-up care, medications, Prescriptions given X 1. Signatures: Marietta Yu RN RN aj1 Bacilio Newton MD MD rn Barber, Rebecca, RN RN rb1 Rosita Hair ag5 Ambar Holcomb kj1 Corrections: (The following items were deleted from the chart) 14:44 13:55 GI: Bowel sounds present X 4 quads. Reports diarrhea, nausea, rb1 rb1
[2019-10-26 17:03] VITALS: TEMP 98.8
[2019-10-26 17:05] VITALS: O2SAT 99
[2019-10-26 17:06] VITALS: BP 122/81
== END 2019-10-26 16:31 | disposition home or self-care (01) ==
LOC: ER 13:40
DX: K51.90 Ulcerative colitis, unspecified, without complications (principal); Z88.5 Allergy status to narcotic agent; Z88.6 Allergy status to analgesic agent
CPT/HCPCS: 85025; 80048; 36415; 80076; 83690; 96375; 96374; 99284; J1100; J7030; J2405

== ENCOUNTER 2019-12-03 12:33 | Emergency (ER) | payer BC ==
--- OUTSIDE RECORDS SUMMARY | 2019-12-03 12:37 | XMS REPORT ---
:1985 [facility] [facility] [address] [place] [id number] Care Team Providers Name Role Phone Unavailable Unavailable Unavailable Problems This patient has no known problems. Allergies, Adverse Reactions, Alerts This patient has no known allergies or adverse reactions. Medications This patient has no known medications.
[2019-12-03 13:20] LABS: Absolute Lymphocytes (CBC) 1.3 K/uL (0.7-4.9); Basophils % 0.4 % (0-1.3); Hematocrit 44.4 % (39.6-49.0); Lymphocytes % 14.6 % (15.3-44.8); MPV 8.6 fL (7.6-11.3); RBC Red Blood Cell Count 4.97 M/uL (4.33-5.43)
[2019-12-03] MEDS ORDERED: MORPHINE 4 MG/ML SYR ONE ×2 (13:20→14:16)
[2019-12-03] MEDS ORDERED: dexAMETHasone 4 MG/ML VIAL ONE (13:21)
[2019-12-03] MEDS ORDERED: ONDANSETRON 4 MG/2 ML VIAL ONE (13:21)
[2019-12-03] MEDS ORDERED: NA CHLORIDE 0.9% 1,000 ML ONE (13:21)
[2019-12-03 13:37] LABS: Albumin 3.8 g/dL (3.4-5.0); Bilirubin Direct 0.1 mg/dL (0-0.2); Bilirubin Total 0.5 mg/dL (0.2-1.0); Protein, Total 7.7 g/dL (6.4-8.2)
--- NOTE | 2019-12-03 13:45 | EDPHYS ---
Physician Documentation [facility] Name: Slava Biswas Age: 34 yrs Sex: Male : 1985 Arrival Date: 12/03/2019 Time: 12:40 Bed 6 Private MD: Cecilio Merida ED Physician Bacilio Newton HPI: 12/03 13:46 This 34 yrs old Male presents to ER via Ambulatory with complaints of kb Abdominal Pain. 13:46 The patient presents with abdominal pain right lower quadrant. The symptoms do not kb radiate. Associated signs and symptoms: Pertinent positives: nausea. The symptoms are described as constant. Modifying factors: The symptoms are alleviated by nothing, the symptoms are aggravated by pressure. Severity of pain: At its worst the pain was moderate in the emergency department the pain is unchanged. The patient has experienced similar episodes in the past, chronically. The patient has not recently seen a physician. 13:47 Onset: The symptoms/episode began/occurred today. kb 13:47 Pt reports he is having another UC flare. States the pain is exactly the same as kb previous episodes. Historical: - Allergies: 12:55 Codeine (Hives, rash); iw 12:55 Tylenol-Codeine #3; iw - Home Meds: 12:55 Prilosec 40 mg Oral cpDR 1 cap 2 times per day [Active]; iw - PMHx: 12:55 GERD; ulcertive colitis; Colitis; iw - PSHx: 12:55 Hernia repair; deviated septum; Tonsillectomy; iw - Immunization history:: Adult Immunizations up to date. - Coronavirus screen:: The patient has NOT traveled to [place] in the past 14 days. The patient has NOT traveled to [place] in the past 14 days. Proceed with normal triage process as indicated. - Social history:: Smoking status: Patient denies any tobacco usage or history of. - Ebola Screening: : Patient negative for fever greater than or equal to 101.5 degrees Fahrenheit, and additional compatible Ebola Virus Disease symptoms Patient denies exposure to infectious person Patient denies travel to an Ebola-affected area in the 21 days before illness onset. ROS: 13:48 Constitutional: Negative for fever, chills, and weight loss, Neck: Negative for injury, kb pain, and swelling, Cardiovascular: Negative for chest pain, palpitations, and edema, Respiratory: Negative for shortness of breath, cough, wheezing, and pleuritic chest pain, Back: Negative for injury and pain, MS/Extremity: Negative for injury and deformity, Skin: Negative for injury, rash, and discoloration, Neuro: Negative for headache, weakness, numbness, tingling, and seizure. 13:48 Abdomen/GI: Positive for abdominal pain, nausea. Exam: 13:47 Constitutional: This is a well developed, well nourished patient who is awake, alert, kb and in no acute distress. Head/Face: Normocephalic, atraumatic. ENT: Nares patent. No nasal discharge, no septal abnormalities noted. Tympanic membranes are normal and external auditory canals are clear. Oropharynx with no redness, swelling, or masses, exudates, or evidence of obstruction, uvula midline. Mucous membranes moist. Neck: Trachea midline, no thyromegaly or masses palpated, and no cervical lymphadenopathy. Supple, full range of motion without nuchal rigidity, or vertebral point tenderness. No Meningismus. Chest/axilla: Normal chest wall appearance and motion. Nontender with no deformity. No lesions are appreciated. Cardiovascular: Regular rate and rhythm with a normal S1 and S2. No gallops, murmurs, or rubs. Normal PMI, no JVD. No pulse deficits. Respiratory: Lungs have equal breath sounds bilaterally, clear to auscultation and percussion. No rales, rhonchi or wheezes noted. No increased work of breathing, no retractions or nasal flaring. Back: No spinal tenderness. No costovertebral tenderness. Full range of motion. Skin: Warm, dry with normal turgor. Normal color with no rashes, no lesions, and no evidence of cellulitis. MS/ Extremity: Pulses equal, no cyanosis. Neurovascular intact. Full, normal range of motion. Neuro: Awake and alert, GCS 15, oriented to person, place, time, and situation. Cranial nerves II-XII grossly intact. Motor strength 5/5 in all extremities. Sensory grossly intact. Cerebellar exam normal. Normal gait. 13:47 Abdomen/GI: Inspection: abdomen appears normal, Bowel sounds: normal, in all quadrants, Palpation: soft, in all quadrants, moderate abdominal tenderness, in the right lower quadrant. Vital Signs: 12:55 BP 146 / 94; Pulse 105; Resp 16; Temp 97.4; Pulse Ox 99% on R/A; Weight 117.93 kg; iw Height 5 ft. 10 in. (177.80 cm); Pain 7/10; 14:30 BP 139 / 92; Pulse 87; Resp 18; Temp 97.5; Pulse Ox 99% on R/A; Pain 3/10; ph 12:55 Body Mass Index 37.31 (117.93 kg, 177.80 cm) iw MDM: 13:00 Patient medically screened. kb 13:42 Data reviewed: vital signs, nurses notes. Data interpreted: Pulse oximetry: on room air kb is 99 %. Interpretation: normal. 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 13:48 ED course: Pt resting on stretcher in no apparent distress. kb 12/03 13:00 Order name: Basic Metabolic Panel; Complete Time: 13:42 kb 12/03 13:00 Order name: CBC with Diff; Complete Time: 13:26 kb 12/03 13:00 Order name: Hepatic Function; Complete Time: 13:42 kb 12/03 13:00 Order name: Lipase; Complete Time: 13:42 kb 12/03 13:00 Order name: IV Saline Lock; Complete Time: 13:27 kb 12/03 13:00 Order name: Labs collected and sent; Complete Time: 13:27 kb Administered Medications: 13:26 Drug: Zofran 4 mg Route: IVP; Site: right antecubital; rb1 14:29 Follow up: Response: No adverse reaction; Nausea is decreased ph 13:26 Drug: Decadron - Dexamethasone 10 mg Route: IVP; Site: right antecubital; rb1 14:30 Follow up: Response: No adverse reaction ph 13:27 Drug: NS 0.9% 1000 ml Route: IV; Rate: 1000 ml; Site: right antecubital; rb1 14:29 Follow up: Response: No adverse reaction; IV Status: Completed infusion; IV Intake: ph 1000ml 13:27 Drug: morphine 4 mg Route: IVP; Site: right antecubital; rb1 14:29 Follow up: Response: No adverse reaction; Pain is decreased; RASS: Alert and Calm (0) ph 14:00 Drug: morphine 4 mg Route: IVP; Site: right antecubital; ph 14:30 Follow up: Response: No adverse reaction ph Disposition: 14:34 Co-signature as Attending Physician, Bacilio Newton MD. rn Disposition: 12/03/19 13:44 Discharged to Home. Impression: Ulcerative colitis. - Condition is Stable. - Discharge Instructions: Ulcerative Colitis, Adult. - Prescriptions for Zofran ODT 4 mg Oral tablet,disintegrating - place 1 tablet by TRANSLINGUAL route every 6 hours; 20 tablet. Tramadol 50 mg Oral Tablet - take 1 tablet by ORAL route every 8 hours as needed; 12 tablet. Medrol (Thee) 4 mg Oral Tablets, Dose Pack - take 1 tablet by ORAL route as directed - follow package instructions; 1 packet. - Medication Reconciliation Form, Thank You Letter, Antibiotic Education, Prescription Opioid Use form. - Follow up: Emergency Department; When: As needed; Reason: Worsening of condition. Follow up: Private Physician; When: 2 - 3 days; Reason: Recheck today's complaints, Continuance of care, Re-evaluation by your physician. Signatures: Dispatcher [employer] Veronica De Jesus, SUPERINTENDENT [employer]-C SUPERINTENDENT [employer]-Jolene Siddiqui, Bacilio Griffin RN, MD MD rn Hall, Patricia, RN RN Jaz Ni RN RN rb1 Corrections: (The following items were deleted from the chart) 14:32 13:44 12/03/2019 13:44 Discharged to Home. Impression: Ulcerative colitis. Condition is ph Stable. Forms are Medication Reconciliation Form, Thank You Letter, Antibiotic Education, Prescription Opioid Use. Follow up: Emergency Department; When: As needed; Reason: Worsening of condition. Follow up: Private Physician; When: 2 - 3 days; Reason: Recheck today's complaints, Continuance of care, Re-evaluation by your physician. kb
--- NOTE | 2019-12-03 13:45 | ER ---
Nurse's Notes [facility] Name: Slava Biswas Age: 34 yrs Sex: Male : 1985 Arrival Date: 12/03/2019 Time: 12:40 Bed 6 Private MD: Cecilio Merida Diagnosis: Ulcerative colitis Presentation: 12/03 12:53 Presenting complaint: Patient states: flare up of ulcerative colitis started about 0830 iw today, has lower abd pain, diarrhea and nausea. Transition of care: patient was not received from another setting of care. Onset of symptoms was December 03, 2019. Risk Assessment: Do you want to hurt yourself or someone else? Patient reports no desire to harm self or others. Initial Sepsis Screen: Does the patient meet any 2 criteria? No. Patient's initial sepsis screen is negative. Does the patient have a suspected source of infection? No. Patient's initial sepsis screen is negative. Care prior to arrival: None. 12:53 Method Of Arrival: Ambulatory iw 12:53 Acuity: TRACEE 3 iw Historical: - Allergies: 12:55 Codeine (Hives, rash); iw 12:55 Tylenol-Codeine #3; iw - Home Meds: 12:55 Prilosec 40 mg Oral cpDR 1 cap 2 times per day [Active]; iw - PMHx: 12:55 GERD; ulcertive colitis; Colitis; iw - PSHx: 12:55 Hernia repair; deviated septum; Tonsillectomy; iw - Immunization history:: Adult Immunizations up to date. - Coronavirus screen:: The patient has NOT traveled to [place] in the past 14 days. The patient has NOT traveled to [place] in the past 14 days. Proceed with normal triage process as indicated. - Social history:: Smoking status: Patient denies any tobacco usage or history of. - Ebola Screening: : Patient negative for fever greater than or equal to 101.5 degrees Fahrenheit, and additional compatible Ebola Virus Disease symptoms Patient denies exposure to infectious person Patient denies travel to an Ebola-affected area in the 21 days before illness onset. Screenin:00 Abuse screen: Denies threats or abuse. Nutritional screening: No deficits noted. rb1 Tuberculosis screening: No symptoms or risk factors identified. Fall Risk None identified. Assessment: 13:00 General: Appears in no apparent distress. comfortable, Behavior is calm, cooperative, rb1 Denies fever. Pain: Complains of pain in right lower quadrant Pain currently is 7 out of 10 on a pain scale. Pain began 0830 this morning. Neuro: Level of Consciousness is awake, alert, obeys commands, Oriented to person, place, time, situation. Cardiovascular: Capillary refill < 3 seconds is brisk in bilateral fingers. Respiratory: Airway is patent Respiratory effort is even, unlabored, Respiratory pattern is regular, symmetrical. : No signs and/or symptoms were reported regarding the genitourinary system. Derm: Skin is pink, warm \T\ dry. 13:00 GI: Reports diarrhea, nausea. rb1 14:21 Reassessment: Patient appears in no apparent distress at this time. Patient and/or ph family updated on plan of care and expected duration. Pain level reassessed. Patient is alert, oriented x 3, equal unlabored respirations, skin warm/dry/pink. Pt reports that pain has improved, d/c home w/ prescriptions and will follow up w/ GI. Vital Signs: 12:55 BP 146 / 94; Pulse 105; Resp 16; Temp 97.4; Pulse Ox 99% on R/A; Weight 117.93 kg; iw Height 5 ft. 10 in. (177.80 cm); Pain 7/10; 14:30 BP 139 / 92; Pulse 87; Resp 18; Temp 97.5; Pulse Ox 99% on R/A; Pain 3/10; ph 12:55 Body Mass Index 37.31 (117.93 kg, 177.80 cm) iw ED Course: 12:40 Patient arrived in ED. mr 12:40 Cecilio Merida MD is Private Physician. mr 12:48 Veronica Holcomb FNP-C [facility]. kb 12:48 Bacilio Newton MD is Attending Physician. kb 12:54 Triage completed. iw 12:55 Arm band placed on. iw 13:00 Patient has correct armband on for positive identification. Bed in low position. Call rb1 light in reach. Side rails up X 1. Pulse ox on. NIBP on. 13:03 Jaz Agustin, RN is Primary Nurse. rb1 13:10 Inserted saline lock: 22 gauge in right antecubital area, using aseptic technique. rb1 Blood collected. 14:26 No provider procedures requiring assistance completed. IV discontinued, intact, ph bleeding controlled, No redness/swelling at site. Pressure dressing applied. Administered Medications: 13:26 Drug: Zofran 4 mg Route: IVP; Site: right antecubital; rb1 14:29 Follow up: Response: No adverse reaction; Nausea is decreased ph 13:26 Drug: Decadron - Dexamethasone 10 mg Route: IVP; Site: right antecubital; rb1 14:30 Follow up: Response: No adverse reaction ph 13:27 Drug: NS 0.9% 1000 ml Route: IV; Rate: 1000 ml; Site: right antecubital; rb1 14:29 Follow up: Response: No adverse reaction; IV Status: Completed infusion; IV Intake: ph 1000ml 13:27 Drug: morphine 4 mg Route: IVP; Site: right antecubital; rb1 14:29 Follow up: Response: No adverse reaction; Pain is decreased; RASS: Alert and Calm (0) ph 14:00 Drug: morphine 4 mg Route: IVP; Site: right antecubital; ph 14:30 Follow up: Response: No adverse reaction ph Intake: 14:29 IV: 1000ml; Total: 1000ml. ph Outcome: 13:44 Discharge ordered by . kb 14:26 Discharged to home ambulatory, with friend. ph 14:26 Condition: good 14:26 Discharge instructions given to patient, Instructed on discharge instructions, follow up and referral plans. medication usage, Demonstrated understanding of instructions, follow-up care, medications, Prescriptions given X 3. 14:32 Patient left the ED. ph Signatures: Veronica Holcomb, CASSY MEDINA-Mary Carmen Harrison Irene, RN RN Ros Ruff RN RN ph Barber, Rebecca, RN RN rb1
[2019-12-03 15:05] VITALS: O2SAT 99
[2019-12-03 15:07] VITALS: BP 139/92; TEMP 97.5
== END 2019-12-03 14:32 | disposition home or self-care (01) ==
LOC: ER 12:33
DX: K51.90 Ulcerative colitis, unspecified, without complications (principal); Z88.6 Allergy status to analgesic agent; K21.9 Gastro-esophageal reflux disease without esophagitis
CPT/HCPCS: 96361; 85025; 80048; 36415; 80076; 83690; 96375; 96374; 99284; J7030; J2405

== ENCOUNTER 2019-12-25 11:37 | Emergency (ER) | payer BC ==
--- OUTSIDE RECORDS SUMMARY | 2019-12-25 11:39 | XMS REPORT ---
:1985 [facility] [address] Webb [address] [place] [id number] Care Team Providers Name Role Phone Unavailable Unavailable Unavailable Problems This patient has no known problems. Allergies, Adverse Reactions, Alerts This patient has no known allergies or adverse reactions. Medications This patient has no known medications.
[2019-12-25 12:35] LABS: Absolute Lymphocytes (CBC) 1.2 K/uL (0.7-4.9); Basophils % 0.3 % (0-1.3); Lymphocytes % 14.4 % (15.3-44.8); MPV 8.5 fL (7.6-11.3); RBC Red Blood Cell Count 4.92 M/uL (4.33-5.43)
[2019-12-25] MEDS ORDERED: NA CHLORIDE 0.9% 1,000 ML ONE (12:39)
[2019-12-25] MEDS ORDERED: METHYLPREDNISOLONE 125 MG INJ ONE (12:39)
[2019-12-25] MEDS ORDERED: MORPHINE 4 MG/ML SYR ONE (12:39)
[2019-12-25] MEDS ORDERED: ONDANSETRON 4 MG/2 ML VIAL ONE (12:39)
[2019-12-25 12:49] LABS: Potassium 4.3 mmol/L (3.5-5.1)
[2019-12-25] MEDS ORDERED: FENTANYL CITR 100 MCG/2 ML ONE (13:58)
--- NOTE | 2019-12-25 14:47 | ER ---
Nurse's Notes [facility] Name: Slava Biswas Age: 34 yrs Sex: Male : 1985 Arrival Date: 12/25/2019 Time: 11:42 Bed 17 Private MD: Diagnosis: Unspecified abdominal pain-UC flare Presentation: 12/24 11:52 Chief complaint: Patient states: RLQ abdominal pain, nausea and diarrhea since 629. jl7 Coronavirus screen: The patient has NOT traveled to a country currently being monitored by the CDC within the last 14 days. Proceed with normal triage procedures. Ebola Screen: No symptoms or risks identified at this time. Initial Sepsis Screen: Does the patient meet any 2 criteria? HR > 90 bpm. No. Patient's initial sepsis screen is negative. Does the patient have a suspected source of infection? Yes: Acute abdominal pain. Risk Assessment: Do you want to hurt yourself or someone else? Patient reports no desire to harm self or others. Onset of symptoms was December 25, 2019 at 06:30. 11:52 Method Of Arrival: Ambulatory [facility] 11:52 Acuity: TRACEE 3 jl7 Triage Assessment: 11:55 General: Appears in no apparent distress. uncomfortable, Behavior is calm, cooperative, jl7 appropriate for age. Pain: Complains of pain in right lower quadrant Pain currently is 7 out of 10 on a pain scale. Neuro: Level of Consciousness is awake, alert, obeys commands. Cardiovascular: Patient's skin is warm and dry. Respiratory: Airway is patent Respiratory effort is even, unlabored, Respiratory pattern is regular, symmetrical. GI: Reports lower abdominal pain, diarrhea, nausea, Patient currently denies vomiting. Derm: Skin is pink, warm \T\ dry. Historical: - Allergies: 11:55 Codeine (Hives, rash); jl7 11:55 Tylenol-Codeine #3; jl7 - Home Meds: 11:55 Prilosec 40 mg Oral cpDR 1 cap 2 times per day [Active]; Probiotic Oral daily [Active]; jl7 - PMHx: 11:55 Colitis; GERD; ulcertive colitis; jl7 - PSHx: 11:55 Hernia repair; deviated septum; Tonsillectomy; jl7 - Immunization history:: Adult Immunizations up to date. - Social history:: Smoking status: Patient denies any tobacco usage or history of. Screenin:00 Abuse screen: Denies threats or abuse. Nutritional screening: No deficits noted. rb1 Tuberculosis screening: No symptoms or risk factors identified. Fall Risk None identified. Assessment: 12:00 General: Appears in no apparent distress. comfortable, Behavior is calm, cooperative, rb1 Reports fever for. Pain: Complains of pain in right lower quadrant Pain currently is 7 out of 10 on a pain scale. Neuro: Level of Consciousness is awake, alert, obeys commands, Oriented to person, place, time, situation. Cardiovascular: Capillary refill < 3 seconds is brisk in bilateral fingers. Respiratory: Airway is patent Respiratory effort is even, unlabored, Respiratory pattern is regular, symmetrical. GI: Bowel sounds present X 4 quads. Abd is soft Reports diarrhea, nausea. : No signs and/or symptoms were reported regarding the genitourinary system. Derm: Skin is pink, warm \T\ dry. 13:00 Reassessment: Patient appears in no apparent distress at this time. Patient and/or rb1 family updated on plan of care and expected duration. Pain level reassessed. Patient is alert, oriented x 3, equal unlabored respirations, skin warm/dry/pink. 14:00 Reassessment: Patient appears in no apparent distress at this time. No changes from rb1 previously documented assessment. 15:00 Reassessment: Patient appears in no apparent distress at this time. Patient and/or rb1 family updated on plan of care and expected duration. Pain level reassessed. Patient is alert, oriented x 3, equal unlabored respirations, skin warm/dry/pink. Patient states feeling better. Vital Signs: 11:52 BP 142 / 96; Pulse 109; Resp 17 S; Temp 99.6(O); Pulse Ox 99% on R/A; Weight 117.93 kg jl7 (R); Height 5 ft. 8 in. (172.72 cm) (R); Pain 7/10; 12:56 BP 127 / 87; Pulse 91; Resp 16; Pulse Ox 97% ; rb1 13:00 BP 121 / 80; Pulse 82; Resp 16; Temp 97.2(TE); Pulse Ox 98% on R/A; mh5 13:58 BP 120 / 78; Pulse 79; Resp 17; Temp 97.6(TE); Pulse Ox 98% on R/A; mh5 14:58 BP 116 / 71; Pulse 78; Resp 19; Pulse Ox 99% on R/A; rb1 11:52 Body Mass Index 39.53 (117.93 kg, 172.72 cm) jl7 ED Course: 11:42 Patient arrived in ED. ag5 11:53 Triage completed. jl7 11:55 Arm band placed on right wrist. Patient placed in an exam room. jl7 11:57 Jaz Agustin RN is Primary Nurse. rb1 12:00 Patient has correct armband on for positive identification. Bed in low position. Call rb1 light in reach. Side rails up X 1. Pulse ox on. NIBP on. 12:06 Miles Biggs FNP-C is [facility]. la1 12:06 Sinan Cole MD is Attending Physician. la1 12:29 Inserted saline lock: 20 gauge in left antecubital area, using aseptic technique. rb1 ,using aseptic technique. IV inserted by HARSHA Carlos Blood collected. 15:10 No provider procedures requiring assistance completed. IV discontinued, intact, rb1 bleeding controlled, No redness/swelling at site. Pressure dressing applied. Administered Medications: 12:33 Drug: NS 0.9% 1000 ml Route: IV; Rate: 1000 ml; Site: left antecubital; rb1 13:38 Follow up: IV Status: Completed infusion rb1 12:33 Drug: SOLU-Medrol 125 mg Route: IVP; Site: left antecubital; rb1 12:44 Follow up: Response: No adverse reaction rb1 12:33 Drug: morphine 4 mg Route: IVP; Site: left antecubital; rb1 12:44 Follow up: Response: No adverse reaction; Pain is decreased rb1 12:33 Drug: Zofran (Ondansetron) 4 mg Route: IVP; Site: left antecubital; rb1 12:44 Follow up: Response: No adverse reaction rb1 14:03 Drug: fentaNYL (PF) 50 mcg Route: IVP; Site: left antecubital; rb1 14:27 Follow up: Response: No adverse reaction; Pain is decreased rb1 Outcome: 14:36 Discharge ordered by . la1 15:10 Discharged to home ambulatory. rb1 15:10 Condition: stable 15:10 Discharge instructions given to patient, Instructed on discharge instructions, follow up and referral plans. medication usage, Demonstrated understanding of instructions, follow-up care, medications, Prescriptions given X 3. 15:10 Patient left the ED. rb1 Signatures: Miles Biggs, ADAM-C SUPERVISOR [employer]-Cla1 Jaz Agustin RN RN rb1 Josseline Velazquez 5 Brittny Zepeda RN RN jl7 Rosita Hair 5
--- NOTE | 2019-12-25 14:48 | EDPHYS ---
Physician Documentation [facility] Name: Slava Biswas Age: 34 yrs Sex: Male : 1985 Arrival Date: 12/25/2019 Time: 11:42 Bed 17 Private MD: ED Physician Sinan Cole HPI: 12/24 12:19 This 34 yrs old Male presents to ER via Ambulatory with complaints of la1 Abdominal Pain. 12:19 The patient presents with abdominal pain in the lower abdomen. Onset: The la1 symptoms/episode began/occurred this morning. The symptoms do not radiate. Associated signs and symptoms: Pertinent positives: diarrhea, nausea. The symptoms are described as sharp. Modifying factors: The symptoms are alleviated by nothing, the symptoms are aggravated by pressure. Severity of pain: At its worst the pain was moderate. The patient has experienced similar episodes in the past, chronically. pt states this pain feels like his typical UC flare. Historical: - Allergies: 11:55 Codeine (Hives, rash); jl7 11:55 Tylenol-Codeine #3; jl7 - Home Meds: 11:55 Prilosec 40 mg Oral cpDR 1 cap 2 times per day [Active]; Probiotic Oral daily [Active]; jl7 - PMHx: 11:55 Colitis; GERD; ulcertive colitis; jl7 - PSHx: 11:55 Hernia repair; deviated septum; Tonsillectomy; jl7 - Immunization history:: Adult Immunizations up to date. - Social history:: Smoking status: Patient denies any tobacco usage or history of. ROS: 12:20 Constitutional: Negative for fever, chills, and weight loss, Eyes: Negative for injury, la1 pain, redness, and discharge, ENT: Negative for injury, pain, and discharge, Neck: Negative for injury, pain, and swelling, Cardiovascular: Negative for chest pain, palpitations, and edema, Respiratory: Negative for shortness of breath, cough, wheezing, and pleuritic chest pain. 12:20 Back: Negative for injury and pain, MS/Extremity: Negative for injury and deformity, Neuro: Negative for headache, weakness, numbness, tingling, and seizure. 12:20 Abdomen/GI: Positive for abdominal pain, nausea, diarrhea. Exam: 12:20 Constitutional: This is a well developed, well nourished patient who is awake, alert, la1 and in no acute distress. Head/Face: Normocephalic, atraumatic. Cardiovascular: Regular rate and rhythm with a normal S1 and S2. Respiratory: Lungs have equal breath sounds bilaterally, clear to auscultation 12:20 Skin: Warm, dry with normal turgor. Normal color with no rashes, no lesions, and no evidence of cellulitis. 12:20 Abdomen/GI: Inspection: obese Bowel sounds: normal, in all quadrants, Palpation: soft, in all quadrants, mild abdominal tenderness, in the right upper quadrant and right lower quadrant, Indicators: McBurney's point is not tender, Titus's sign is negative, Rovsing's sign is negative, Obturator sign is negative, Psoas sign is negative. Vital Signs: 11:52 BP 142 / 96; Pulse 109; Resp 17 S; Temp 99.6(O); Pulse Ox 99% on R/A; Weight 117.93 kg jl7 (R); Height 5 ft. 8 in. (172.72 cm) (R); Pain 7/10; 12:56 BP 127 / 87; Pulse 91; Resp 16; Pulse Ox 97% ; rb1 13:00 BP 121 / 80; Pulse 82; Resp 16; Temp 97.2(TE); Pulse Ox 98% on R/A; mh5 13:58 BP 120 / 78; Pulse 79; Resp 17; Temp 97.6(TE); Pulse Ox 98% on R/A; mh5 14:58 BP 116 / 71; Pulse 78; Resp 19; Pulse Ox 99% on R/A; rb1 11:52 Body Mass Index 39.53 (117.93 kg, 172.72 cm) 7 MDM: 12:06 Patient medically screened. la1 14:35 Data reviewed: vital signs, nurses notes, lab test result(s), and as a result, I will la1 discharge patient. Data interpreted: Pulse oximetry: on room air is 98 %. Interpretation: normal. Counseling: I had a detailed discussion with the patient and/or guardian regarding: the historical points, exam findings, and any diagnostic results supporting the discharge/admit diagnosis, lab results, the need for outpatient follow up, a websphere consultant, to return to the emergency department if symptoms worsen or persist or if there are any questions or concerns that arise at home. Medication response: Response to treatment: the patient's symptoms have mildly improved after treatment. Special discussion: Based on the history and exam findings, there is no indication for further emergent testing or inpatient evaluation. I discussed with the patient/guardian the need to see the websphere consultant for further evaluation of the symptoms. 12/24 12:14 Order name: CBC with Diff; Complete Time: 12:52 la1 12/24 12:14 Order name: BMP; Complete Time: 12:52 la1 12/24 12:14 Order name: IV; Complete Time: 12:29 la1 Administered Medications: 12:33 Drug: NS 0.9% 1000 ml Route: IV; Rate: 1000 ml; Site: left antecubital; rb1 13:38 Follow up: IV Status: Completed infusion rb1 12:33 Drug: SOLU-Medrol 125 mg Route: IVP; Site: left antecubital; rb1 12:44 Follow up: Response: No adverse reaction rb1 12:33 Drug: morphine 4 mg Route: IVP; Site: left antecubital; rb1 12:44 Follow up: Response: No adverse reaction; Pain is decreased rb1 12:33 Drug: Zofran (Ondansetron) 4 mg Route: IVP; Site: left antecubital; rb1 12:44 Follow up: Response: No adverse reaction rb1 14:03 Drug: fentaNYL (PF) 50 mcg Route: IVP; Site: left antecubital; rb1 14:27 Follow up: Response: No adverse reaction; Pain is decreased rb1 Disposition: 17:20 Co-signature as Attending Physician, Sinan Cole MD I agree with the assessment and kdr plan of care. Disposition: 12/25/19 14:36 Discharged to Home. Impression: Unspecified abdominal pain - UC flare. - Condition is Stable. - Discharge Instructions: Abdominal Pain, Adult, Ulcerative Colitis, Adult. - Prescriptions for Zofran 4 mg Oral Tablet - take 1 tablet by ORAL route every 12 hours As needed; 6 tablet. Tramadol 50 mg Oral Tablet - take 1 tablet by ORAL route every 8 hours as needed; 12 tablet. Medrol (Thee) 4 mg Oral Tablets, Dose Pack - take 1 tablet by ORAL route as directed - follow package instructions; 1 packet. - Medication Reconciliation Form, Thank You Letter, Prescription Opioid Use form. - Follow up: Private Physician; When: 2 - 3 days; Reason: Recheck today's complaints, Re-evaluation by your physician. Follow up: Emergency Department; When: As needed; Reason: Worsening of condition. Signatures: Dispatcher [employer] EDMS Sinan Cole MD MD kdr Miles Biggs, HOSTEL MANAGER-C HOSTEL MANAGER-Cla1 Jaz Agustin, RN RN rb1 Brittny Zepeda RN RN jl7 Corrections: (The following items were deleted from the chart) 15:10 14:36 12/25/2019 14:36 Discharged to Home. Impression: Unspecified abdominal pain - UC rb1 flare. Condition is Stable. Forms are Medication Reconciliation Form, Thank You Letter, Antibiotic Education, Prescription Opioid Use. Follow up: Private Physician; When: 2 - 3 days; Reason: Recheck today's complaints, Re-evaluation by your physician. Follow up: Emergency Department; When: As needed; Reason: Worsening of condition. la1
[2019-12-25 16:07] VITALS: TEMP 97.6
[2019-12-25 16:08] VITALS: BP 116/71; O2SAT 99
== END 2019-12-25 15:10 | disposition home or self-care (01) ==
LOC: ER 11:37
DX: K51.90 Ulcerative colitis, unspecified, without complications (principal); Z88.5 Allergy status to narcotic agent; Z88.6 Allergy status to analgesic agent
CPT/HCPCS: 96361; 85025; 80048; 36415; 96375; 96374; 99284; J3010; J7030; J2930; J2405

== ENCOUNTER 2020-01-30 12:55 | Emergency (ER) | payer BC ==
--- OUTSIDE RECORDS SUMMARY | 2020-01-30 12:57 | XMS REPORT ---
:1985 Author Organization [facility] t Address [address] [place] [address] Dr. [address] [place] [id number] Care Team Providers Name Role Phone Unavailable Unavailable Unavailable Problems This patient has no known problems. Allergies, Adverse Reactions, Alerts This patient has no known allergies or adverse reactions. Medications This patient has no known medications.
[2020-01-30 14:02] LABS: Absolute Lymphocytes (CBC) 1.5 K/uL (0.7-4.9); Basophils % 0.5 % (0-1.3); Hematocrit 43.8 % (39.6-49.0); Lymphocytes % 15.8 % (15.3-44.8); MPV 8.7 fL (7.6-11.3); RBC Red Blood Cell Count 4.93 M/uL (4.33-5.43)
[2020-01-30] MEDS ORDERED: FENTANYL CITR 100 MCG/2 ML ONE (14:04)
[2020-01-30] MEDS ORDERED: ONDANSETRON 4 MG/2 ML VIAL ONE (14:04)
[2020-01-30] MEDS ORDERED: METHYLPREDNISOLONE 125 MG INJ ONE (14:04)
[2020-01-30] MEDS ORDERED: NA CHLORIDE 0.9% 1,000 ML ONE (14:05)
[2020-01-30 14:20] LABS: ALT/SGPT 38 U/L (12-78); AST/SGOT 17 U/L (15-37); Albumin 3.6 g/dL (3.4-5.0); Alkaline Phosphatase 79 U/L (45-117); BUN Blood Urea Nitrogen 11 mg/dL (7-18); Bicarbonate 25 mmol/L (21-32); Bilirubin Direct < 0.1 mg/dL (0-0.2); Bilirubin Total 0.3 mg/dL (0.2-1.0); Glucose Level 122 mg/dL (74-106); Lipase 211 U/L (73-393); Potassium 3.6 mmol/L (3.5-5.1); Protein, Total 7.4 g/dL (6.4-8.2); Sodium Level 143 mmol/L (136-145)
--- NOTE | 2020-01-30 15:50 | EDPHYS ---
Physician Documentation [facility] Name: Slava Biswas Age: 34 yrs Sex: Male : 1985 Arrival Date: 01/30/2020 Time: 12:58 Bed 5 Private MD: Cecilio Merida ED Physician Sinan Cole HPI: 01/29 13:49 This 34 yrs old Male presents to ER via Ambulatory with complaints of uc la1 flare up. 13:49 Onset: The symptoms/episode began/occurred this morning. Associated signs and symptoms: la1 Pertinent positives: abdominal pain, diarrhea. Modifying factors: The patient symptoms are alleviated by nothing, the patient symptoms are aggravated by nothing. The patient has experienced similar episodes in the past, chronically. pt reports RLQ abd pain, states he feels like this is a normal [facility]IC flare to him. . Historical: - Allergies: 13:07 Codeine (Hives, rash); hb 13:07 Tylenol-Codeine #3; hb - Home Meds: 13:07 Prilosec 40 mg Oral cpDR 1 cap 2 times per day [Active]; Probiotic Oral daily [Active]; hb - PMHx: 13:07 Colitis; GERD; ulcertive colitis; hb - PSHx: 13:07 Hernia repair; deviated septum; Tonsillectomy; hb - Immunization history:: Adult Immunizations up to date. - Social history:: Smoking status: Patient denies any tobacco usage or history of. ROS: 13:49 Constitutional: Negative for fever, chills, and weight loss, Neck: Negative for injury, la1 pain, and swelling, Cardiovascular: Negative for chest pain, palpitations, and edema, Respiratory: Negative for shortness of breath, cough, wheezing, and pleuritic chest pain, Back: Negative for injury and pain, : Negative for injury, bleeding, discharge, and swelling, MS/Extremity: Negative for injury and deformity, Skin: Negative for injury, rash, and discoloration, Neuro: Negative for headache, weakness, numbness, tingling, and seizure. 13:49 Abdomen/GI: Positive for abdominal pain, diarrhea, abdominal cramps. Exam: 13:50 Constitutional: This is a well developed, well nourished patient who is awake, alert, la1 and in no acute distress. Head/Face: Normocephalic, atraumatic. Eyes: Pupils equal round and reactive to light, extra-ocular motions intact. Neck: Trachea midline, no thyromegaly or masses palpated, and no cervical lymphadenopathy. Chest/axilla: Normal chest wall appearance and motion. Nontender with no deformity. No lesions are appreciated. Cardiovascular: Regular rate and rhythm with a normal S1 and S2. Respiratory: Lungs have equal breath sounds bilaterally, clear to auscultation 13:50 Back: No spinal tenderness. No costovertebral tenderness. Full range of motion. 13:50 Abdomen/GI: Inspection: abdomen appears normal, obese Bowel sounds: normal, in all quadrants, Palpation: soft, in all quadrants, mild abdominal tenderness, in the right upper quadrant, left upper quadrant and right lower quadrant, Indicators: McBurney's point is not tender, Titus's sign is negative, Rovsing's sign is negative, Obturator sign is negative, Psoas sign is negative. Vital Signs: 13:05 BP 158 / 102; Pulse 122; Resp 18; Temp 99.1; Pulse Ox 98% ; Weight 117.93 kg; Height 5 hb ft. 10 in. (177.80 cm); Pain 8/10; 15:05 BP 127 / 86; Pulse 97; Resp 18; Pulse Ox 98% on R/A; ph 16:00 BP 131 / 82; Pulse 89; Resp 16; Temp 97.9; Pulse Ox 99% on R/A; ph 13:05 Body Mass Index 37.31 (117.93 kg, 177.80 cm) hb MDM: 13:51 Patient medically screened. la1 15:48 Data reviewed: vital signs, nurses notes, lab test result(s), and as a result, I will la1 discharge patient. Data interpreted: Pulse oximetry: on room air is 98 %. Interpretation: normal. Counseling: I had a detailed discussion with the patient and/or guardian regarding: the historical points, exam findings, and any diagnostic results supporting the discharge/admit diagnosis, the presence of at least one elevated blood pressure reading (>120/80) during this emergency department visit, lab results, the need for outpatient follow up, a gluer machine setup operator, to return to the emergency department if symptoms worsen or persist or if there are any questions or concerns that arise at home. Special discussion: Based on the patient's Hx, exam, and Dx evaluation, there is no indication for emergent surgery or inpatient Tx. It is understood by the patient/guardian that if the Sx's persist or worsen they need to return immediately for re-evaluation. Based on the history and exam findings, there is no indication for further emergent testing or inpatient evaluation. I discussed with the patient/guardian the need to see the gluer machine setup operator for further evaluation of the symptoms. 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 la1 01/29 13:35 Order name: Basic Metabolic Panel; Complete Time: 15:37 la1 01/29 13:35 Order name: CBC with Diff; Complete Time: 15:37 la1 01/29 13:35 Order name: Hepatic Function; Complete Time: 15:37 la1 01/29 13:35 Order name: Lipase; Complete Time: 15:37 la1 01/29 13:35 Order name: IV Saline Lock; Complete Time: 13:57 la1 01/29 13:35 Order name: Labs collected and sent; Complete Time: 13:57 la1 Administered Medications: 14:13 Drug: fentaNYL (PF) 50 mcg Route: IVP; Site: right antecubital; ph 15:08 Follow up: Response: No adverse reaction ph 14:13 Drug: NS 0.9% 1000 ml Route: IV; Rate: 1000 ml; Site: right antecubital; ph 15:09 Follow up: Response: No adverse reaction; IV Status: Completed infusion; IV Intake: ph 1000ml 14:14 Drug: Zofran (Ondansetron) 4 mg Route: IVP; Site: right antecubital; ph 15:09 Follow up: Response: No adverse reaction; Nausea is decreased ph 14:14 Drug: SOLU-Medrol 125 mg Route: IVP; Site: right antecubital; ph 15:09 Follow up: Response: No adverse reaction ph 15:32 Drug: fentaNYL (PF) 50 mcg Route: IVP; Site: right antecubital; ph 16:14 Follow up: Response: No adverse reaction; Pain is decreased ph Disposition: 18:29 Co-signature as Attending Physician, Sinan Cole MD I agree with the assessment and kdr plan of care. Disposition: 01/30/20 15:50 Discharged to Home. Impression: Ulcerative colitis, unspecified, Other abdominal pain. - Condition is Stable. - Discharge Instructions: Abdominal Pain, Adult, Ulcerative Colitis, Adult. - Prescriptions for Tramadol 50 mg Oral Tablet - take 1 tablet by ORAL route every 8 hours as needed; 16 tablet. Medrol (Thee) 4 mg Oral Tablets, Dose Pack - take 1 tablet by ORAL route as directed - follow package instructions; 1 packet. - Medication Reconciliation Form, Thank You Letter, Prescription Opioid Use form. - Follow up: Private Physician; When: 2 - 3 days; Reason: Recheck today's complaints, Re-evaluation by your physician. - Problem is new. - Symptoms have improved. Signatures: Dispatcher [employer] EDMS Sinan Cole MD MD [facility] Miles Biggs, PAPER BALER-C PAPER BALER-Cla1 Ros Ruff, HARSHA RN ph Esther Nice RN RN Corrections: (The following items were deleted from the chart) 16:15 15:50 01/30/2020 15:50 Discharged to Home. Impression: Ulcerative colitis, unspecified; ph Other abdominal pain. Condition is Stable. Forms are Medication Reconciliation Form, Thank You Letter, Antibiotic Education, Prescription Opioid Use. Follow up: Private Physician; When: 2 - 3 days; Reason: Recheck today's complaints, Re-evaluation by your physician. Problem is new. Symptoms have improved. la1
--- NOTE | 2020-01-30 15:50 | ER ---
Nurse's Notes [facility] Name: Slava Biswas Age: 34 yrs Sex: Male : 1985 Arrival Date: 01/30/2020 Time: 12:58 Bed 5 Private MD: Cecilio Merida Diagnosis: Ulcerative colitis, unspecified;Other abdominal pain Presentation: 01/29 13:05 Chief complaint: RLQ pain, diarrhea, and nausea since this morning. Coronavirus screen: hb Proceed with normal triage. Ebola Screen: No symptoms or risks identified at this time. Initial Sepsis Screen: Does the patient meet any 2 criteria? HR > 90 bpm. No. Patient's initial sepsis screen is negative. Risk Assessment: Do you want to hurt yourself or someone else? Patient reports no desire to harm self or others. Onset of symptoms was January 30, 2020. 13:05 Method Of Arrival: Ambulatory hb 13:05 Acuity: TRACEE 3 hb 15:08 Initial Sepsis Screen: Does the patient have a suspected source of infection? No. ph Patient's initial sepsis screen is negative. Historical: - Allergies: 13:07 Codeine (Hives, rash); hb 13:07 Tylenol-Codeine #3; hb - Home Meds: 13:07 Prilosec 40 mg Oral cpDR 1 cap 2 times per day [Active]; Probiotic Oral daily [Active]; hb - PMHx: 13:07 Colitis; GERD; ulcertive colitis; hb - PSHx: 13:07 Hernia repair; deviated septum; Tonsillectomy; hb - Immunization history:: Adult Immunizations up to date. - Social history:: Smoking status: Patient denies any tobacco usage or history of. Screenin:07 Abuse screen: Denies threats or abuse. Denies injuries from another. Nutritional ph screening: No deficits noted. Tuberculosis screening: No symptoms or risk factors identified. Fall Risk None identified. Assessment: 14:30 General: Appears in no apparent distress. uncomfortable, well groomed, Behavior is ph calm, cooperative, appropriate for age, Denies fever, chills. Pain: Complains of pain in right lower quadrant. Neuro: Level of Consciousness is awake, alert, obeys commands, Oriented to person, place, time, situation. Cardiovascular: Capillary refill < 3 seconds in bilateral fingers Patient's skin is warm and dry. Respiratory: Airway is patent Respiratory effort is even, unlabored, Respiratory pattern is regular, symmetrical. GI: Abdomen is round Reports lower abdominal pain, diarrhea, nausea, Patient currently denies vomiting. Derm: Skin is intact, is healthy with good turgor, Skin is pink, warm \T\ dry. 16:13 Reassessment: Patient appears in no apparent distress at this time. Patient and/or ph family updated on plan of care and expected duration. Pain level reassessed. Patient is alert, oriented x 3, equal unlabored respirations, skin warm/dry/pink. Pt states that pain has improved to a more manageable level, d/c home w/ prescriptions for steroids and pain medication. Vital Signs: 13:05 BP 158 / 102; Pulse 122; Resp 18; Temp 99.1; Pulse Ox 98% ; Weight 117.93 kg; Height 5 hb ft. 10 in. (177.80 cm); Pain 8/10; 15:05 BP 127 / 86; Pulse 97; Resp 18; Pulse Ox 98% on R/A; ph 16:00 BP 131 / 82; Pulse 89; Resp 16; Temp 97.9; Pulse Ox 99% on R/A; ph 13:05 Body Mass Index 37.31 (117.93 kg, 177.80 cm) hb ED Course: 12:58 Patient arrived in ED. as 12:58 Cecilio Merida MD is Private Physician. as 13:06 Triage completed. hb 13:07 Arm band placed on. hb 13:29 Miles Biggs FNP-C [facility]. la1 13:29 Sinan Cole MD is Attending Physician. la1 13:47 Ros Ruff RN is Primary Nurse. ph 13:58 Initial lab(s) drawn, by ky, sent to lab. Inserted saline lock: 20 gauge in right em1 antecubital area, using aseptic technique. Blood collected. 15:08 Patient has correct armband on for positive identification. Bed in low position. Call ph light in reach. Side rails up X 1. Pulse ox on. NIBP on. 15:08 No provider procedures requiring assistance completed. ph 16:13 IV discontinued, intact, bleeding controlled, No redness/swelling at site. Pressure ph dressing applied. Administered Medications: 14:13 Drug: fentaNYL (PF) 50 mcg Route: IVP; Site: right antecubital; ph 15:08 Follow up: Response: No adverse reaction ph 14:13 Drug: NS 0.9% 1000 ml Route: IV; Rate: 1000 ml; Site: right antecubital; ph 15:09 Follow up: Response: No adverse reaction; IV Status: Completed infusion; IV Intake: ph 1000ml 14:14 Drug: Zofran (Ondansetron) 4 mg Route: IVP; Site: right antecubital; ph 15:09 Follow up: Response: No adverse reaction; Nausea is decreased ph 14:14 Drug: SOLU-Medrol 125 mg Route: IVP; Site: right antecubital; ph 15:09 Follow up: Response: No adverse reaction ph 15:32 Drug: fentaNYL (PF) 50 mcg Route: IVP; Site: right antecubital; ph 16:14 Follow up: Response: No adverse reaction; Pain is decreased ph Intake: 15:09 IV: 1000ml; Total: 1000ml. ph Outcome: 15:50 Discharge ordered by MD. rushing 16:12 Discharged to home ambulatory. ph 16:12 Condition: improved 16:12 Discharge instructions given to patient, Instructed on discharge instructions, follow up and referral plans. medication usage, Demonstrated understanding of instructions, follow-up care, medications, Prescriptions given X 2. 16:15 Patient left the ED. ph Signatures: Malini Velazquez Eric em1 Miles Biggs, SENIOR GAME DEVELOPER-C SENIOR GAME DEVELOPER-Cla1 Ros Ruff RN RN Esther Nice RN RN
[2020-01-30 16:24] VITALS: BP 131/82; TEMP 97.9; O2SAT 99
== END 2020-01-30 16:15 | disposition home or self-care (01) ==
LOC: ER 12:55
DX: K51.90 Ulcerative colitis, unspecified, without complications (principal)
CPT/HCPCS: 96361; 85025; 80048; 36415; 80076; 83690; 96375; 96374; 99284; J3010; J7030; J2930; J2405

== ENCOUNTER 2020-02-16 16:01 | Emergency (ER) | payer BC ==
--- OUTSIDE RECORDS SUMMARY | 2020-02-16 16:03 | XMS REPORT ---
:1985 Author Organization [facility] t Address [address] [place] [address] Dr. Webb [address] [place] [id number] Care Team Providers Name Role Phone Unavailable Unavailable Unavailable Problems This patient has no known problems. Allergies, Adverse Reactions, Alerts This patient has no known allergies or adverse reactions. Medications This patient has no known medications.
[2020-02-16 16:31] LABS: Absolute Lymphocytes (CBC) 2.1 K/uL (0.7-4.9); Basophils % 0.7 % (0-1.3); Lymphocytes % 19.8 % (15.3-44.8); RBC Red Blood Cell Count 4.78 M/uL (4.33-5.43)
[2020-02-16] MEDS ORDERED: FENTANYL CITR 100 MCG/2 ML ONE (16:33)
[2020-02-16] MEDS ORDERED: METHYLPREDNISOLONE 125 MG INJ ONE (16:33)
[2020-02-16] MEDS ORDERED: NA CHLORIDE 0.9% 1,000 ML ONE (16:33)
[2020-02-16] MEDS ORDERED: ONDANSETRON 4 MG/2 ML VIAL ONE (16:33)
[2020-02-16 16:49] LABS: ALT/SGPT 27 U/L (12-78); AST/SGOT 11 U/L (15-37); Albumin 3.8 g/dL (3.4-5.0); Alkaline Phosphatase 79 U/L (45-117); BUN Blood Urea Nitrogen 14 mg/dL (7-18); Bicarbonate 29 mmol/L (21-32); Bilirubin Direct < 0.1 mg/dL (0-0.2); Bilirubin Total 0.3 mg/dL (0.2-1.0); Glucose Level 103 mg/dL (74-106); Lipase 147 U/L (73-393); Potassium 3.5 mmol/L (3.5-5.1); Protein, Total 7.6 g/dL (6.4-8.2); Sodium Level 142 mmol/L (136-145)
[2020-02-16] MEDS ORDERED: MORPHINE 4 MG/ML SYR ONE (17:03)
--- NOTE | 2020-02-16 17:34 | ER ---
Nurse's Notes [facility] Name: Slava Biswas Age: 34 yrs Sex: Male : 1985 Arrival Date: 02/16/2020 Time: 16:04 Bed 13 Private MD: Cecilio Merida Diagnosis: Ulcerative colitis, unspecified Presentation: 02/15 16:14 Chief complaint: Patient states: Lower abdominal pain with bloody diarrhea for 1 day. ll1 History of ulcerative colitis. Coronavirus screen: Proceed with normal triage. Patient denies a cough. Patient denies shortness of breath or difficulty breathing. Patient denies measured and/or subjective temperature greater than 100.4F prior to today's visit. Patient denies travel on a cruise ship or to a country the [facility] currently lists as an affected area. Patient denies contact with known and/or suspected case of COVID-19. Ebola Screen: Patient denies travel to an Ebola-affected area in the 21 days before illness onset. Initial Sepsis Screen: Does the patient meet any 2 criteria? No. Patient's initial sepsis screen is negative. Does the patient have a suspected source of infection? No. Patient's initial sepsis screen is negative. Risk Assessment: Do you want to hurt yourself or someone else? Patient reports no desire to harm self or others. Onset of symptoms was February 16, 2020. 16:14 Method Of Arrival: Ambulatory [facility] 16:14 Acuity: TRACEE 3 ll1 Historical: - Allergies: 16:11 Codeine (Hives, rash); jl7 16:11 Tylenol-Codeine #3; jl7 - Home Meds: 16:11 Prilosec 40 mg Oral cpDR 1 cap 2 times per day [Active]; Probiotic Oral daily [Active]; jl7 - PMHx: 16:11 Colitis; GERD; ulcertive colitis; jl7 - PSHx: 16:11 Hernia repair; deviated septum; Tonsillectomy; jl7 16:17 rotator cuff repair; ll1 - Immunization history:: Adult Immunizations unknown. - Social history:: Smoking status: unknown Patient/guardian denies using alcohol, street drugs, tobacco products. Screenin:12 Abuse screen: Denies threats or abuse. Denies injuries from another. Nutritional jl7 screening: No deficits noted. Tuberculosis screening: No symptoms or risk factors identified. 17:05 Fall Risk IV access (20 points). Total Brennan Fall Scale indicates No Risk (0-24 pts). jl7 Assessment: 16:25 General: Appears in no apparent distress. uncomfortable, Behavior is calm, cooperative, jl7 appropriate for age. Pain: Complains of pain in right lower quadrant Pain currently is 8 out of 10 on a pain scale. Neuro: Level of Consciousness is awake, alert, obeys commands, Oriented to person, place, time, situation. Cardiovascular: Patient's skin is warm and dry. Respiratory: Airway is patent Respiratory effort is even, unlabored, Respiratory pattern is regular, symmetrical. GI: Bowel sounds present X 4 quads. Abd is soft and non tender X 4 quads. Derm: Skin is pink, warm \T\ dry. 17:30 Reassessment: Patient appears in no apparent distress at this time. Patient and/or jl7 family updated on plan of care and expected duration. Pain level reassessed. Patient is alert, oriented x 3, equal unlabored respirations, skin warm/dry/pink. Patient states symptoms have improved. Vital Signs: 16:14 BP 146 / 86; Pulse 81; Resp 18; Temp 99.3; Pulse Ox 100% ; Pain 8/10; ll1 16:30 BP 128 / 83; Pulse 71; Resp 16; Pulse Ox 99% ; Pain 8/10; jl7 17:05 BP 123 / 76; Pulse 77; Resp 15 S; Pulse Ox 97% on R/A; Pain 6/10; jl7 17:30 BP 127 / 74; Pulse 75; Resp 16; Pulse Ox 97% ; jl7 ED Course: 16:04 Patient arrived in ED. mr 16:04 Cecilio Merida MD is Private Physician. mr 16:08 Luc Portillo, FARRAH is PHCP. pm1 16:08 Bacilio Newton MD is Attending Physician. pm1 16:09 Brittny Zepdea RN is Primary Nurse. jl7 16:12 Patient has correct armband on for positive identification. Placed in gown. Bed in low jl7 position. Call light in reach. Side rails up X 1. Pulse ox on. NIBP on. 16:16 Triage completed. ll1 16:25 Initial lab(s) drawn, by me, sent to lab. Inserted saline lock: 20 gauge in right jl7 antecubital area, using aseptic technique. Blood collected. 16:30 Arm band placed on right wrist. jl7 17:30 No provider procedures requiring assistance completed. jl7 17:46 IV discontinued, intact, bleeding controlled, No redness/swelling at site. Pressure jl7 dressing applied. Administered Medications: 16:35 Drug: NS 0.9% 1000 ml Route: IV; Rate: 1000 ml; Site: right antecubital; jl7 17:30 Follow up: Response: No adverse reaction; IV Status: Completed infusion; IV Intake: jl7 1000ml 16:36 Drug: SOLU-Medrol 125 mg Route: IVP; Site: right antecubital; jl7 17:01 Follow up: Response: No adverse reaction jl7 16:38 Drug: Zofran (Ondansetron) 4 mg Route: IVP; Site: right antecubital; jl7 17:01 Follow up: Response: No adverse reaction; Pain is decreased jl7 16:40 Drug: fentaNYL (PF) 50 mcg Route: IVP; Site: right antecubital; jl7 17:01 Follow up: Response: No adverse reaction; Pain is decreased jl7 17:00 Drug: morphine 4 mg Route: IVP; Site: right antecubital; jl7 17:46 Follow up: Response: No adverse reaction; Pain is decreased jl7 Intake: 17:30 IV: 1000ml; Total: 1000ml. jl7 Outcome: 17:34 Discharge ordered by MD. pm1 17:46 Discharged to home ambulatory. jl7 17:46 Condition: stable 17:46 Discharge instructions given to patient, Instructed on discharge instructions, follow up and referral plans. medication usage, Demonstrated understanding of instructions, follow-up care, medications, Prescriptions given X 2. 17:48 Patient left the ED. jl7 Signatures: EllerMary Carmen LindseyLuc, PAUNCH TRIMMER PAUNCH TRIMMER pm1 Brittny Zepeda RN RN jl7 Soraya Tellez RN RN ll1 Corrections: (The following items were deleted from the chart) 17:47 17:30 IV discontinued, intact, bleeding controlled, No redness/swelling at site. jl7 Pressure dressing applied, jl7
--- NOTE | 2020-02-16 17:35 | EDPHYS ---
Physician Documentation [facility] Name: Slava Biswas Age: 34 yrs Sex: Male : 1985 Arrival Date: 02/16/2020 Time: 16:04 Bed 13 Private MD: Cecilio Merida ED Physician Bacilio Newton HPI: 02/15 16:17 This 34 yrs old Male presents to ER via Ambulatory with complaints of pm1 Abdominal Pain. 16:17 The patient presents with abdominal pain in the lower abdomen. pm1 16:17 Onset: The symptoms/episode began/occurred yesterday. The symptoms do not radiate. pm1 Associated signs and symptoms: Pertinent positives: diarrhea, nausea, Pertinent negatives: vomiting. The symptoms are described as crampy. Modifying factors: The symptoms are alleviated by nothing, the symptoms are aggravated by nothing. Severity of pain: in the emergency department the pain is unchanged. The patient has experienced similar episodes in the past, multiple times, and the symptoms today are exactly the same, to previous ulcerative colitis flare ups. Patient reports presentation of symptoms the same as prior ulcerative colitis flare up. Reports one blood tinged mucoid stool yesterday and now clear mucoid. + Nausea without vomiting. Patient was supposed to be placed on Humira in December but was held due to covid 19 . Historical: - Allergies: 16:11 Codeine (Hives, rash); jl7 16:11 Tylenol-Codeine #3; jl7 - Home Meds: 16:11 Prilosec 40 mg Oral cpDR 1 cap 2 times per day [Active]; Probiotic Oral daily [Active]; jl7 - PMHx: 16:11 Colitis; GERD; ulcertive colitis; jl7 - PSHx: 16:11 Hernia repair; deviated septum; Tonsillectomy; jl7 16:17 rotator cuff repair; ll1 - Immunization history:: Adult Immunizations unknown. - Social history:: Smoking status: unknown Patient/guardian denies using alcohol, street drugs, tobacco products. ROS: 16:17 Constitutional: Negative for fever, chills, and weight loss, Cardiovascular: Negative pm1 for chest pain, palpitations, and edema, Respiratory: Negative for shortness of breath, cough, wheezing, and pleuritic chest pain. 16:17 Back: Negative for injury and pain, : Negative for injury, bleeding, discharge, and swelling, MS/Extremity: Negative for injury and deformity, Skin: Negative for injury, rash, and discoloration, Neuro: Negative for headache, weakness, numbness, tingling, and seizure. 16:17 Abdomen/GI: Positive for abdominal pain, nausea, diarrhea, Negative for vomiting, constipation. Exam: 16:17 Constitutional: This is a well developed, well nourished patient who is awake, alert, pm1 and in no acute distress. Head/Face: Normocephalic, atraumatic. Neck: Trachea midline, no thyromegaly or masses palpated, and no cervical lymphadenopathy. Supple, full range of motion without nuchal rigidity, or vertebral point tenderness. No Meningismus. Chest/axilla: Normal chest wall appearance and motion. Nontender with no deformity. No lesions are appreciated. 16:17 Back: No spinal tenderness. No costovertebral tenderness. Full range of motion. Skin: Warm, dry with normal turgor. Normal color with no rashes, no lesions, and no evidence of cellulitis. MS/ Extremity: Pulses equal, no cyanosis. Neurovascular intact. Full, normal range of motion. 16:17 Cardiovascular: Exam negative for acute changes, Rate: normal, Rhythm: regular, Pulses: no pulse deficits are appreciated, Edema: is not appreciated. 16:17 Respiratory: Exam negative for acute changes, the patient does not display signs of respiratory distress, Respirations: normal. 16:17 Abdomen/GI: Inspection: abdomen appears normal, Palpation: abdomen is soft and non-tender, in all quadrants, mass, is not appreciated, rebound tenderness, is not appreciated. 16:17 Neuro: Exam negative for acute changes, Orientation: is normal, Motor: is normal, moves all fours, Sensation: is normal, no obvious gross deficits. Vital Signs: 16:14 BP 146 / 86; Pulse 81; Resp 18; Temp 99.3; Pulse Ox 100% ; Pain 8/10; ll1 16:30 BP 128 / 83; Pulse 71; Resp 16; Pulse Ox 99% ; Pain 8/10; jl7 17:05 BP 123 / 76; Pulse 77; Resp 15 S; Pulse Ox 97% on R/A; Pain 6/10; jl7 17:30 BP 127 / 74; Pulse 75; Resp 16; Pulse Ox 97% ; jl7 MDM: 16:08 Patient medically screened. pm1 16:17 Data reviewed: vital signs. Data interpreted: Pulse oximetry: on room air is 100 %. pm1 Interpretation: normal. 16:54 Counseling: I had a detailed discussion with the patient and/or guardian regarding: the pm1 historical points, exam findings, and any diagnostic results supporting the discharge/admit diagnosis, lab results, the need for outpatient follow up, for definitive care, a digital community manager, to return to the emergency department if symptoms worsen or persist or if there are any questions or concerns that arise at home. 02/15 16:15 Order name: Basic Metabolic Panel; Complete Time: 16:51 pm1 02/15 16:15 Order name: CBC with Diff; Complete Time: 16:39 pm1 02/15 16:15 Order name: Hepatic Function; Complete Time: 16:51 pm1 02/15 16:15 Order name: Lipase; Complete Time: 16:51 pm1 02/15 16:15 Order name: IV Saline Lock; Complete Time: 16:41 pm1 02/15 16:15 Order name: Labs collected and sent; Complete Time: 16:25 pm1 Administered Medications: 16:35 Drug: NS 0.9% 1000 ml Route: IV; Rate: 1000 ml; Site: right antecubital; jl7 17:30 Follow up: Response: No adverse reaction; IV Status: Completed infusion; IV Intake: jl7 1000ml 16:36 Drug: SOLU-Medrol 125 mg Route: IVP; Site: right antecubital; jl7 17:01 Follow up: Response: No adverse reaction jl7 16:38 Drug: Zofran (Ondansetron) 4 mg Route: IVP; Site: right antecubital; jl7 17:01 Follow up: Response: No adverse reaction; Pain is decreased jl7 16:40 Drug: fentaNYL (PF) 50 mcg Route: IVP; Site: right antecubital; jl7 17:01 Follow up: Response: No adverse reaction; Pain is decreased jl7 17:00 Drug: morphine 4 mg Route: IVP; Site: right antecubital; jl7 17:46 Follow up: Response: No adverse reaction; Pain is decreased jl7 Disposition: 17:49 Co-signature as Attending Physician, Bacilio Newton MD. rn Disposition: 02/16/20 17:34 Discharged to Home. Impression: Ulcerative colitis, unspecified. - Condition is Stable. - Discharge Instructions: Abdominal Pain, Adult, Ulcerative Colitis, Adult. - Prescriptions for Tramadol 50 mg Oral Tablet - take 1 tablet by ORAL route every 8 hours as needed; 12 tablet. Medrol (Thee) 4 mg Oral Tablets, Dose Pack - take 1 tablet by ORAL route as directed - follow package instructions; 1 packet. - Medication Reconciliation Form, Thank You Letter, Antibiotic Education, Prescription Opioid Use form. - Follow up: Emergency Department; When: As needed; Reason: Worsening of condition. Follow up: Private Physician; When: 2 - 3 days; Reason: Recheck today's complaints, Continuance of care, Re-evaluation by your physician. - Problem is new. - Symptoms have improved. Signatures: Dispatcher [employer] EDMS Bacilio Newton MD MD rn Marinas, Patrick, [employer]OVE SERVICER HELPER pm1 Brittny Zepeda RN RN jl7 Soraya Tellez RN RN ll1 Corrections: (The following items were deleted from the chart) 17:48 17:34 02/16/2020 17:34 Discharged to Home. Impression: Ulcerative colitis, unspecified. jl7 Condition is Stable. Forms are Medication Reconciliation Form, Thank You Letter, Antibiotic Education, Prescription Opioid Use. Follow up: Emergency Department; When: As needed; Reason: Worsening of condition. Follow up: Private Physician; When: 2 - 3 days; Reason: Recheck today's complaints, Continuance of care, Re-evaluation by your physician. Problem is new. Symptoms have improved. pm1
[2020-02-16 18:00] VITALS: TEMP 99.3
[2020-02-16 18:03] VITALS: O2SAT 97
[2020-02-16 18:04] VITALS: BP 127/74
== END 2020-02-16 17:48 | disposition home or self-care (01) ==
LOC: ER 16:01
DX: K51.90 Ulcerative colitis, unspecified, without complications (principal); K21.9 Gastro-esophageal reflux disease without esophagitis
CPT/HCPCS: 85025; 80048; 36415; 80076; 83690; J3010; J7030; J2930; J2405; 96361; 96374; 96375; 99284

== ENCOUNTER 2020-03-09 07:29 | Emergency (ER) | payer BC ==
--- OUTSIDE RECORDS SUMMARY | 2020-03-09 07:32 | XMS REPORT ---
:1985 Author Organization [facility] t Address [address] [place] [address] Dr. Webb [address] [place] [id number] Care Team Providers Name Role Phone Unavailable Unavailable Unavailable Problems This patient has no known problems. Allergies, Adverse Reactions, Alerts This patient has no known allergies or adverse reactions. Medications This patient has no known medications. Procedures This patient has no known procedures. Results This patient has no known results.
[2020-03-09] MEDS ORDERED: METHYLPREDNISOLONE 125 MG INJ ONE (08:10)
[2020-03-09] MEDS ORDERED: MORPHINE 4 MG/ML SYR ONE ×2 (08:10→09:30)
[2020-03-09] MEDS ORDERED: ONDANSETRON 4 MG/2 ML VIAL ONE (08:11)
[2020-03-09] MEDS ORDERED: NA CHLORIDE 0.9% 1,000 ML ONE (08:11)
[2020-03-09 08:41] LABS: Absolute Lymphocytes (CBC) 1.5 K/uL (0.7-4.9); Basophils % 0.4 % (0-1.3); Hematocrit 42.3 % (39.6-49.0); Lymphocytes % 19.9 % (15.3-44.8); MPV 8.3 fL (7.6-11.3); RBC Red Blood Cell Count 4.67 M/uL (4.33-5.43)
[2020-03-09 09:00] LABS: Albumin 3.6 g/dL (3.4-5.0); Bilirubin Direct 0.1 mg/dL (0-0.2); Bilirubin Total 0.6 mg/dL (0.2-1.0); Potassium 4.1 mmol/L (3.5-5.1); Protein, Total 7.3 g/dL (6.4-8.2)
[2020-03-09 10:03] VITALS: BP 116/80; TEMP 98; O2SAT 99
--- NOTE | 2020-03-15 13:06 | EDPHYS ---
Physician Documentation [facility] Name: Slava Biswas Age: 34 yrs Sex: Male : 1985 Arrival Date: 03/09/2020 Time: 07:31 Bed 5 Private MD: Cecilio Merida ED Physician Bacilio Newton HPI: 03/09 07:52 This 34 yrs old Male presents to ER via Unassigned with complaints of rn Abdominal Pain. 07:52 The patient presents with abdominal pain right lower quadrant. Onset: The rn symptoms/episode began/occurred yesterday. The symptoms do not radiate. Associated signs and symptoms: Pertinent positives: nausea and vomiting, blood in stools, diarrhea, Pertinent negatives: fever. The symptoms are described as crampy, intermittent, sharp. Modifying factors: The symptoms are alleviated by nothing, the symptoms are aggravated by touching the area. Severity of pain: At its worst the pain was moderate in the emergency department the pain is unchanged. The patient has experienced similar episodes in the past. The patient has not recently seen a physician. Reports RLQ abd pain, nausea, and diarrhea, began last night, identical to previous UC flares. was supposed to start Humira, but pandemic began and unable to, is diet controlled. . Historical: - Allergies: 07:56 Codeine (Hives, rash); aa5 07:56 Tylenol-Codeine #3; aa5 - PMHx: 07:56 Colitis; GERD; ulcertive colitis; aa5 - PSHx: 07:56 Hernia repair; deviated septum; Tonsillectomy; rotator cuff repair; aa5 - Immunization history:: Adult Immunizations unknown. - Family history:: not pertinent. - Social history:: Smoking status: Patient denies any tobacco usage or history of. ROS: 07:52 Constitutional: Negative for fever, chills, and weight loss, Eyes: Negative for injury, rn pain, redness, and discharge, Neck: Negative for injury, pain, and swelling, Cardiovascular: Negative for chest pain, palpitations, and edema, Respiratory: Negative for shortness of breath, cough, wheezing, and pleuritic chest pain, Abdomen/GI: + abd pain/nausea/diarrhea MS/Extremity: Negative for injury and deformity, Skin: Negative for injury, rash, and discoloration, Neuro: Negative for headache, weakness, numbness, tingling, and seizure. Exam: 07:52 Constitutional: This is a well developed, well nourished patient who is awake, alert, rn and in no acute distress. Ambulatory to room without assistance or distress Head/Face: Normocephalic, atraumatic. ENT: dry MM Cardiovascular: Tachycardic, regular Respiratory: Speaking full sentences, unlabored Abdomen/GI: soft, mild right sided abd tenderness, no rebound MS/ Extremity: Pulses equal, no cyanosis. Neurovascular intact. Full, normal range of motion. Equal circumference. Neuro: Awake and alert, GCS 15, oriented to person, place, time, and situation. Cranial nerves II-XII grossly intact. Motor strength 5/5 in all extremities. Sensory grossly intact. Cerebellar exam normal. Normal gait. Vital Signs: 07:45 BP 148 / 93; Pulse 94; Resp 16 S; Temp 98.6(O); Pulse Ox 100% on R/A; Weight 117.93 kg aa5 (R); Height 5 ft. 10 in. (177.80 cm) (R); Pain 7/10; 08:34 BP 115 / 74; Pulse 66; Resp 16; Pulse Ox 98% ; jl7 09:25 BP 136 / 87; Pulse 67; Resp 16; Pulse Ox 100% ; Pain 6/10; jl7 09:44 BP 116 / 80; Pulse 65; Resp 18; Temp 98.0; Pulse Ox 99% on R/A; Pain 4/10; ph 07:45 Body Mass Index 37.31 (117.93 kg, 177.80 cm) aa5 MDM: 07:47 Patient medically screened. rn 09:26 Differential diagnosis: ulcerative colitis. Data reviewed: vital signs, nurses notes, rn diabetes educator test result(s), and as a result, I will discharge patient. Counseling: I had a detailed discussion with the patient and/or guardian regarding: the historical points, exam findings, and any diagnostic results supporting the discharge/admit diagnosis, lab results, the need for outpatient follow up, to return to the emergency department if symptoms worsen or persist or if there are any questions or concerns that arise at home. Response to treatment: the patient's symptoms have mildly improved after treatment, and as a result, I will discharge patient. Special discussion: Based on the patient's Hx, exam, and Dx evaluation, there is no indication for emergent surgery or inpatient Tx. It is understood by the patient/guardian that if the Sx's persist or worsen they need to return immediately for re-evaluation. I discussed with the patient/guardian in detail that at this point there is no indication for admission to the hospital. It is understood, however, that if the symptoms persist or worsen the patient needs to return immediately for re-evaluation. ED course: Normal WBC, he feels identical to previous UC flares, after discussion with patient, will not obtain emergent CT to rule out appendicitis given normal wbc, identical presentation to previous episodes, and afebrile. Will dc home with short course of pain medication. PMPaware shows scores of 571/290/000/610. . 03/09 07:55 Order name: Basic Metabolic Panel; Complete Time: 09:15 EDMS 03/09 07:55 Order name: Lipase; Complete Time: 09:15 EDRI 03/09 07:55 Order name: Liver (Hepatic) Function; Complete Time: 09:15 EDRI 03/09 08:01 Order name: CBC with Diff; Complete Time: 09:15 aa5 Administered Medications: 08:23 Drug: NS 0.9% 1000 ml Route: IV; Rate: 1 bolus; Site: right antecubital; ph 09:45 Follow up: Response: No adverse reaction; IV Status: Completed infusion; IV Intake: ph 1000ml 08:23 Drug: SOLU-Medrol 125 mg Route: IVP; Site: right antecubital; ph 09:46 Follow up: Response: No adverse reaction ph 08:24 Drug: Zofran (Ondansetron) 4 mg Route: IVP; Site: right antecubital; ph 09:45 Follow up: Response: No adverse reaction; Nausea is decreased ph 08:26 Drug: morphine 4 mg Route: IVP; Site: right antecubital; ph 09:00 Follow up: Response: No adverse reaction; Pain is decreased ph 09:25 Drug: morphine 4 mg Route: IVP; Site: right antecubital; jl7 09:46 Follow up: Response: No adverse reaction; Pain is decreased; RASS: Alert and Calm (0) ph Disposition: 03/09/20 09:27 Discharged to Home. Impression: Ulcerative colitis, unspecified. - Condition is Stable. - Discharge Instructions: Ulcerative Colitis, Adult. - Prescriptions for Zofran ODT 4 mg Oral tablet,disintegrating - place 1 tablet by TRANSLINGUAL route every 8 hours As needed; 20 tablet. Medrol (Thee) 4 mg Oral Tablets, Dose Pack - take 1 tablet by ORAL route as directed - follow package instructions; 1 packet. Tramadol 50 mg Oral Tablet - take 1 tablet by ORAL route every 8 hours as needed; 12 tablet. - Medication Reconciliation Form, Thank You Letter, Antibiotic Education, Prescription Opioid Use form. - Follow up: Private Physician; When: As needed; Reason: Recheck today's complaints, Re-evaluation by your physician. - Problem is an acute exacerbation. - Symptoms have improved. Signatures: Dispatcher [employer] EDMS Bacilio Newton MD MD rn Marzena Rust RN RN aa5 Ros Ruff RN RN ph Brittny Zepeda, RN RN jl7 Corrections: (The following items were deleted from the chart) 09:46 09:27 03/09/2020 09:27 Discharged to Home. Impression: Ulcerative colitis, unspecified. ph Condition is Stable. Discharge Instructions: Ulcerative Colitis, Adult. Prescriptions for Zofran ODT 4 mg Oral tablet,disintegrating - place 1 tablet by TRANSLINGUAL route every 8 hours As needed; 20 tablet, Medrol (Thee) 4 mg Oral Tablets, Dose Pack - take 1 tablet by ORAL route as directed - follow package instructions; 1 packet, Tramadol 50 mg Oral Tablet - take 1 tablet by ORAL route every 8 hours as needed; 12 tablet. and Forms are Medication Reconciliation Form, Thank You Letter, Antibiotic Education, Prescription Opioid Use. Follow up: Private Physician; When: As needed; Reason: Recheck today's complaints, Re-evaluation by your physician. Problem is an acute exacerbation. Symptoms have improved. rn
--- NOTE | 2020-03-15 13:06 | ER ---
Nurse's Notes [facility] Name: Slava Biswas Age: 34 yrs Sex: Male : 1985 Arrival Date: 03/09/2020 Time: 07:31 Bed 5 Private MD: Cecilio Merida Diagnosis: Ulcerative colitis, unspecified Presentation: 03/09 07:45 Chief complaint: Patient states: "I am having an ulcerative colitis flare up that aa5 started about 1am". Pt c/o RLQ pain and bloody diarrhea x 2 this morning. Reports nausea, denies vomiting. 07:45 Coronavirus screen: Proceed with normal triage. Patient denies a cough. Patient denies aa5 shortness of breath or difficulty breathing. Patient denies measured and/or subjective temperature greater than 100.4F prior to today's visit. Patient denies travel on a cruise ship or to a country the [facility] currently lists as an affected area. Patient denies contact with known and/or suspected case of COVID-19. Ebola Screen: Patient negative for fever greater than or equal to 101.5 degrees Fahrenheit, and additional compatible Ebola Virus Disease symptoms. Initial Sepsis Screen: Does the patient meet any 2 criteria? No. Patient's initial sepsis screen is negative. Does the patient have a suspected source of infection? No. Patient's initial sepsis screen is negative. Risk Assessment: Do you want to hurt yourself or someone else? Patient reports no desire to harm self or others. Onset of symptoms was February 2020. 07:45 Acuity: TRACEE 3 aa5 07:45 Method Of Arrival: Ambulatory aa5 Historical: - Allergies: 07:56 Codeine (Hives, rash); aa5 07:56 Tylenol-Codeine #3; aa5 - PMHx: 07:56 Colitis; GERD; ulcertive colitis; aa5 - PSHx: 07:56 Hernia repair; deviated septum; Tonsillectomy; rotator cuff repair; aa5 - Immunization history:: Adult Immunizations unknown. - Family history:: not pertinent. - Social history:: Smoking status: Patient denies any tobacco usage or history of. Screenin:03 Abuse screen: Denies threats or abuse. Denies injuries from another. Nutritional ph screening: No deficits noted. Tuberculosis screening: No symptoms or risk factors identified. Fall Risk None identified. Assessment: 08:30 General: Appears in no apparent distress. comfortable, well groomed, Behavior is calm, ph cooperative, appropriate for age, Denies fever. Pain: Complains of pain in right lower quadrant. Neuro: Level of Consciousness is awake, alert, obeys commands, Oriented to person, place, time, situation. Cardiovascular: Capillary refill < 3 seconds in bilateral fingers Patient's skin is warm and dry. Respiratory: Airway is patent Respiratory effort is even, unlabored. GI: Abdomen is round non-distended, Bowel sounds present X 4 quads. Abd is soft X 4 quads Reports lower abdominal pain, nausea, Patient currently denies vomiting. Derm: Skin is intact, is healthy with good turgor, Skin is pink, warm \\T\\ dry. 09:25 Reassessment: Patient appears in no apparent distress at this time. Patient and/or jl7 family updated on plan of care and expected duration. Pain level reassessed. Patient is alert, oriented x 3, equal unlabored respirations, skin warm/dry/pink. Pain rated 6/10, medicated as ordered. 09:46 Reassessment: Patient appears in no apparent distress at this time. Patient and/or ph family updated on plan of care and expected duration. Pain level reassessed. Patient is alert, oriented x 3, equal unlabored respirations, skin warm/dry/pink. Pt d/c home w/ prescriptions. Vital Signs: 07:45 BP 148 / 93; Pulse 94; Resp 16 S; Temp 98.6(O); Pulse Ox 100% on R/A; Weight 117.93 kg aa5 (R); Height 5 ft. 10 in. (177.80 cm) (R); Pain 7/10; 08:34 BP 115 / 74; Pulse 66; Resp 16; Pulse Ox 98% ; jl7 09:25 BP 136 / 87; Pulse 67; Resp 16; Pulse Ox 100% ; Pain 6/10; jl7 09:44 BP 116 / 80; Pulse 65; Resp 18; Temp 98.0; Pulse Ox 99% on R/A; Pain 4/10; ph 07:45 Body Mass Index 37.31 (117.93 kg, 177.80 cm) aa5 ED Course: 07:31 Patient arrived in ED. ag5 07:31 Cecilio Merida MD is Private Physician. ag5 07:41 Arm band placed on Patient placed in an exam room, on a stretcher. aa5 07:47 Bacilio Newton MD is Attending Physician. rn 07:55 Triage completed. aa5 08:20 Initial lab(s) drawn, by me, sent to lab. Inserted saline lock: 20 gauge in left ph antecubital area, using aseptic technique. Blood collected. 08:21 Ros Ruff, RN is Primary Nurse. ph 09:04 Patient has correct armband on for positive identification. Placed in gown. Bed in low ph position. Call light in reach. Side rails up X 1. Pulse ox on. NIBP on. Door closed. Noise minimized. Warm blanket given. 09:45 No provider procedures requiring assistance completed. IV discontinued, intact, ph bleeding controlled, No redness/swelling at site. Pressure dressing applied. Administered Medications: 08:23 Drug: NS 0.9% 1000 ml Route: IV; Rate: 1 bolus; Site: right antecubital; ph 09:45 Follow up: Response: No adverse reaction; IV Status: Completed infusion; IV Intake: ph 1000ml 08:23 Drug: SOLU-Medrol 125 mg Route: IVP; Site: right antecubital; ph 09:46 Follow up: Response: No adverse reaction ph 08:24 Drug: Zofran (Ondansetron) 4 mg Route: IVP; Site: right antecubital; ph 09:45 Follow up: Response: No adverse reaction; Nausea is decreased ph 08:26 Drug: morphine 4 mg Route: IVP; Site: right antecubital; ph 09:00 Follow up: Response: No adverse reaction; Pain is decreased ph 09:25 Drug: morphine 4 mg Route: IVP; Site: right antecubital; jl7 09:46 Follow up: Response: No adverse reaction; Pain is decreased; RASS: Alert and Calm (0) ph Intake: 09:45 IV: 1000ml; Total: 1000ml. ph Outcome: 09:27 Discharge ordered by . rn 09:45 Discharged to home ambulatory. ph 09:45 Condition: improved 09:45 Discharge instructions given to patient, Instructed on discharge instructions, follow up and referral plans. medication usage, Demonstrated understanding of instructions, follow-up care, medications, Prescriptions given X 3. 09:46 Patient left the ED. ph Signatures: Bacilio Newton MD MD rn Marzena Rust, RN RN aa5 Ros Ruff RN RN ph Brittny Zepeda RN RN jl7 Rosita Hair ag5
== END 2020-03-09 09:46 | disposition home or self-care (01) ==
LOC: ER 07:29
DX: K51.90 Ulcerative colitis, unspecified, without complications (principal); Z88.5 Allergy status to narcotic agent; Z88.6 Allergy status to analgesic agent
CPT/HCPCS: 96361; 85025; 80048; 36415; 80076; 83690; 96375; 96374; 99284; J7030; J2930; J2405

== ENCOUNTER 2020-03-24 17:12 | Emergency (ER) | payer BC ==
--- OUTSIDE RECORDS SUMMARY | 2020-03-24 17:14 | XMS REPORT | Continuity of Care Document ---
:1985 Author Organization [facility] t Address [address] [place] [address] Dr. Webb [address] [place] [id number] Care Team Providers Name Role Phone Unavailable Unavailable Unavailable Problems This patient has no known problems. Allergies, Adverse Reactions, Alerts This patient has no known allergies or adverse reactions. Medications This patient has no known medications. Procedures This patient has no known procedures. Results This patient has no known results.
[2020-03-24 17:58] LABS: Absolute Lymphocytes (CBC) 1.7 K/uL (0.7-4.9); Basophils % 0.4 % (0-1.3); Hematocrit 41.7 % (39.6-49.0); MPV 8.6 fL (7.6-11.3); RBC Red Blood Cell Count 4.59 M/uL (4.33-5.43)
[2020-03-24] MEDS ORDERED: ONDANSETRON 4 MG/2 ML VIAL ONE (18:17)
[2020-03-24] MEDS ORDERED: MORPHINE 4 MG/ML SYR ONE (18:17)
[2020-03-24] MEDS ORDERED: NA CHLORIDE 0.9% 1,000 ML ONE (18:18)
[2020-03-24 18:23] LABS: ALT/SGPT 33 U/L (12-78); AST/SGOT 26 U/L (15-37); Albumin 3.7 g/dL (3.4-5.0); Alkaline Phosphatase 87 U/L (45-117); BUN Blood Urea Nitrogen 13 mg/dL (7-18); Bicarbonate 25 mmol/L (21-32); Bilirubin Direct < 0.1 mg/dL (0-0.2); Bilirubin Total 0.2 mg/dL (0.2-1.0); Glucose Level 114 mg/dL (74-106); Lipase 320 U/L (73-393); Protein, Total 7.3 g/dL (6.4-8.2); Sodium Level 144 mmol/L (136-145)
--- NOTE | 2020-03-24 19:21 | ER ---
Nurse's Notes [facility] Name: Slava Biswas Age: 34 yrs Sex: Male : 1985 Arrival Date: 03/24/2020 Time: 17:13 Bed 13 Private MD: Cecilio Merida Diagnosis: Generalized abdominal pain Presentation: 03/24 17:23 Chief complaint: Patient states: i am having a flare up of my ulcerative colitis, pain tw2 on my right side, it started this morning about 9, lots of diarrhea and nauseousness but no vomiting. Coronavirus screen: Patient denies a cough. Patient denies shortness of breath or difficulty breathing. Patient denies measured and/or subjective temperature greater than 100.4F prior to today's visit. Patient denies travel on a cruise ship or to a country the [facility] currently lists as an affected area. Patient denies contact with known and/or suspected case of COVID-19. Ebola Screen: Patient denies travel to an Ebola-affected area in the 21 days before illness onset. Initial Sepsis Screen: Does the patient meet any 2 criteria? HR > 90 bpm. No. Patient's initial sepsis screen is negative. Does the patient have a suspected source of infection? No. Patient's initial sepsis screen is negative. Risk Assessment: Do you want to hurt yourself or someone else? Patient reports no desire to harm self or others. Onset of symptoms was March 24, 2020. 17:23 Method Of Arrival: Ambulatory tw2 17:23 Acuity: TRACEE 3 tw2 Triage Assessment: 17:25 General: Appears in no apparent distress. uncomfortable, well groomed, Behavior is tw2 calm, cooperative, appropriate for age. Pain: Complains of pain in right lower quadrant. GI: Reports lower abdominal pain, nausea. Historical: - Allergies: 17:25 Codeine (Hives, rash); tw2 17:25 Tylenol-Codeine #3; tw2 - Home Meds: 17:25 Probiotic Oral daily [Active]; Prilosec 40 mg Oral cpDR 1 cap 2 times per day [Active]; tw2 - PMHx: 17:25 GERD; ulcertive colitis; Colitis; tw2 - PSHx: 17:25 Hernia repair; deviated septum; Tonsillectomy; rotator cuff repair; tw2 - Immunization history:: Adult Immunizations. - Social history:: Smoking status: Patient/guardian denies using. Screenin:00 Abuse screen: Denies threats or abuse. Denies injuries from another. Nutritional iw screening: No deficits noted. Tuberculosis screening: No symptoms or risk factors identified. Fall Risk IV access (20 points). Assessment: 18:00 General: Appears in no apparent distress. Behavior is calm, cooperative. Pain: iw Complains of pain in abdomen. Neuro: Level of Consciousness is awake, alert, obeys commands, Oriented to person, place, time, situation, Moves all extremities. Full function. Cardiovascular: Patient's skin is warm and dry. Respiratory: Respiratory effort is even, unlabored, Respiratory pattern is regular, symmetrical. GI: Abdomen is non-distended, Bowel sounds present X 4 quads. Abd is soft and non tender X 4 quads. Reports lower abdominal pain. Derm: Skin is intact, is healthy with good turgor. Musculoskeletal: Range of motion: intact in all extremities. 19:26 Reassessment: Patient appears in no apparent distress at this time. Patient and/or jd3 family updated on plan of care and expected duration. Pain level reassessed. Patient is alert, oriented x 3, equal unlabored respirations, skin warm/dry/pink. Patient states feeling better. General: Appears in no apparent distress. comfortable, Behavior is calm, cooperative, appropriate for age. Cardiovascular: Capillary refill < 3 seconds Patient's skin is warm and dry. Respiratory: Airway is patent Respiratory effort is even, unlabored, Respiratory pattern is regular, symmetrical. GI: Abdomen is non-distended, Abd is soft and non tender X 4 quads. Vital Signs: 17:26 BP 129 / 88; Pulse 108; Resp 18; Temp 98.2(TE); Pulse Ox 99% on R/A; Weight 117.93 kg tw2 (R); Height 5 ft. 10 in. (177.80 cm) (R); Pain 7/10; 18:15 BP 125 / 82; Pulse 83; Resp 18; Pulse Ox 97% on R/A; vc 18:39 BP 118 / 88; Pulse 74; Resp 16; Pulse Ox 100% on R/A; iw 19:27 BP 118 / 63; Pulse 78; Resp 17 S; Pulse Ox 100% on R/A; jd3 17:26 Body Mass Index 37.30 (117.93 kg, 177.80 cm) tw2 ED Course: 17:13 Patient arrived in ED. mr 17:14 Cecilio Merida MD is Private Physician. mr 17:24 Triage completed. tw2 17:25 Arm band placed on. tw2 17:28 Florentino Georges PA is PHCP. m 17:29 Rei Noguera MD is Attending Physician. [facility] 17:46 Jolene Ware, HARSHA is Primary Nurse. iw 17:54 Inserted saline lock: 20 gauge in right antecubital area, using aseptic technique. iw 18:00 Patient has correct armband on for positive identification. iw 18:00 No provider procedures requiring assistance completed. iw 19:21 Cecilio Merida MD is Referral Physician. m 19:28 IV discontinued, intact, bleeding controlled, No redness/swelling at site. Pressure jd3 dressing applied. Administered Medications: 18:16 Drug: morphine 4 mg Route: IVP; Site: right antecubital; iw 19:15 Follow up: Response: No adverse reaction; RASS: Alert and Calm (0) jd3 18:17 Drug: Zofran (Ondansetron) 4 mg Route: IVP; Site: right antecubital; iw 19:15 Follow up: Response: No adverse reaction jd3 18:17 Drug: NS 0.9% 1000 ml Route: IV; Rate: 1 bolus; Site: right antecubital; iw 19:15 Follow up: Response: No adverse reaction; IV Status: Completed infusion; IV Intake: jd3 1000ml Intake: 19:15 IV: 1000ml; Total: 1000ml. jd3 Outcome: 19:21 Discharge ordered by . [facility] 19:28 Discharged to home ambulatory, with family. jd3 19:28 Condition: stable 19:28 Discharge instructions given to patient, Instructed on discharge instructions, follow up and referral plans. medication usage, Demonstrated understanding of instructions, follow-up care, medications, Prescriptions given X 2. 19:30 Patient left the ED. jd3 Signatures: Florentino Georges PA PA harlan Mary Carmen Eller Jolene Ware, HARSHA MCLEOD iw Lizz Echevarria RN RN tw2 Nicholas Pugh RN RN jRoxanna Munguia RN RN vc Corrections: (The following items were deleted from the chart) 17:27 17:26 Pulse 108bpm; Resp 18bpm; Pulse Ox 99% RA; Temp 98.2F Temporal; 117.93 kg tw2 Reported; Height 5 ft. 10 in. Reported; BMI: 37.3; Pain 7/10; tw2
--- NOTE | 2020-03-24 19:21 | EDPHYS ---
Physician Documentation [facility] Name: Slava Biswas Age: 34 yrs Sex: Male : 1985 Arrival Date: 03/24/2020 Time: 17:13 Bed 13 Private MD: Cecilio Merida ED Physician Rei Noguera HPI: 03/24 17:54 This 34 yrs old Male presents to ER via Ambulatory with complaints of jmm Abdominal Pain. 17:54 The patient presents with abdominal pain. Onset: The symptoms/episode began/occurred jmm gradually. 17:54 The symptoms do not radiate. Associated signs and symptoms: Pertinent positives: jmm diarrhea. The symptoms are described as achy. The patient has experienced similar episodes in the past, several times. Patient has had similar episodes in the past due to UC. Similar character of pain. Denies vomiting. . Historical: - Allergies: 17:25 Codeine (Hives, rash); tw2 17:25 Tylenol-Codeine #3; tw2 - Home Meds: 17:25 Probiotic Oral daily [Active]; Prilosec 40 mg Oral cpDR 1 cap 2 times per day [Active]; tw2 - PMHx: 17:25 GERD; ulcertive colitis; Colitis; tw2 - PSHx: 17:25 Hernia repair; deviated septum; Tonsillectomy; rotator cuff repair; tw2 - Immunization history:: Adult Immunizations. - Social history:: Smoking status: Patient/guardian denies using. ROS: 17:54 Constitutional: Negative for fever, chills, and weight loss, Cardiovascular: Negative jmm for chest pain, palpitations, and edema, Respiratory: Negative for shortness of breath, cough, wheezing, and pleuritic chest pain. 17:54 Abdomen/GI: Positive for abdominal pain, nausea, diarrhea. 17:54 All other systems are negative. Exam: 17:54 Constitutional: This is a well developed, well nourished patient who is awake, alert, jmm and in no acute distress. Head/Face: atraumatic. Eyes: EOMI, no conjunctival erythema appreciated ENT: Moist Mucus Membranes Neck: Trachea midline, Supple Chest/axilla: Normal chest wall appearance and motion. Cardiovascular: Regular rate and rhythm. No edema appreciated Respiratory: Normal respirations, no respiratory distress appreciated Abdomen/GI: Non distended, soft Back: Normal ROM Skin: General appearance color normal MS/ Extremity: Moves all extremities, no obvious deformities appreciated, no edema noted to the lower extremities Neuro: Awake and alert, normal gait Psych: Behavior is normal, Mood is normal, Patient is cooperative and pleasant Vital Signs: 17:26 BP 129 / 88; Pulse 108; Resp 18; Temp 98.2(TE); Pulse Ox 99% on R/A; Weight 117.93 kg tw2 (R); Height 5 ft. 10 in. (177.80 cm) (R); Pain 7/10; 18:15 BP 125 / 82; Pulse 83; Resp 18; Pulse Ox 97% on R/A; vc 18:39 BP 118 / 88; Pulse 74; Resp 16; Pulse Ox 100% on R/A; iw 19:27 BP 118 / 63; Pulse 78; Resp 17 S; Pulse Ox 100% on R/A; jd3 17:26 Body Mass Index 37.30 (117.93 kg, 177.80 cm) tw2 MDM: 17:31 Patient medically screened. [facility] 19:19 Data reviewed: vital signs, nurses notes. Counseling: I had a detailed discussion with sonu the patient and/or guardian regarding: the historical points, exam findings, and any diagnostic results supporting the discharge/admit diagnosis, lab results, the need for outpatient follow up, to return to the emergency department if symptoms worsen or persist or if there are any questions or concerns that arise at home. ED course: Labs WNL. Patient is advised to follow up with gi for further evaluation. I do not suspect an acute intrabdominal process, pain is same character as previous UC flares. Patient is given strict return precautinos. Patient understood and agrees with the plan of care. . 03/24 17:39 Order name: Basic Metabolic Panel; Complete Time: 18:29 [facility] 03/24 17:39 Order name: CBC with Diff; Complete Time: 18:02 [facility] 03/24 17:39 Order name: Hepatic Function; Complete Time: 18:29 [facility] 03/24 17:39 Order name: Lipase; Complete Time: 18:29 [facility] 03/24 17:39 Order name: IV Saline Lock; Complete Time: 18:19 [facility] 03/24 17:39 Order name: Labs collected and sent; Complete Time: 18:19 [facility] Administered Medications: 18:16 Drug: morphine 4 mg Route: IVP; Site: right antecubital; iw 19:15 Follow up: Response: No adverse reaction; RASS: Alert and Calm (0) jd3 18:17 Drug: Zofran (Ondansetron) 4 mg Route: IVP; Site: right antecubital; iw 19:15 Follow up: Response: No adverse reaction jd3 18:17 Drug: NS 0.9% 1000 ml Route: IV; Rate: 1 bolus; Site: right antecubital; iw 19:15 Follow up: Response: No adverse reaction; IV Status: Completed infusion; IV Intake: jd3 1000ml Disposition: 03/25 18:43 Co-signature as Attending Physician, Rei Noguera MD I agree with the assessment and umang plan of care. Disposition: 03/24/20 19:21 Discharged to Home. Impression: Generalized abdominal pain. - Condition is Stable. - Discharge Instructions: Abdominal Pain, Adult. - Prescriptions for Bentyl 20 mg Oral Tablet - take 1 tablet by ORAL route every 6 hours As needed; 20 tablet. Ultracet 37.5- 325 mg Oral Tablet - take 1 tablet by ORAL route every 6 hours - for up to 5 days; do not exceed 8 tablets per day.; 12 tablet. - Medication Reconciliation Form, Thank You Letter, Antibiotic Education, Prescription Opioid Use form. - Follow up: Cecilio Merida MD; When: 2 - 3 days; Reason: Recheck today's complaints, Continuance of care, Re-evaluation by your physician. Signatures: Dispatcher [employer] EDRei Mendez MD MD cha Mickail, Joel, PA PA Jolene Mendez, RN HARSHA Lizz Echevarria RN RN tw2 Nicholas Pugh RN RN jd3 Corrections: (The following items were deleted from the chart) 03/24 19:30 19:21 03/24/2020 19:21 Discharged to Home. Impression: Generalized abdominal pain. jd3 Condition is Stable. Forms are Medication Reconciliation Form, Thank You Letter, Antibiotic Education, Prescription Opioid Use. Follow up: Cecilio Merida; When: 2 - 3 days; Reason: Recheck today's complaints, Continuance of care, Re-evaluation by your physician. harlan
[2020-03-24 19:36] VITALS: TEMP 98.2
[2020-03-24 19:39] VITALS: O2SAT 100
[2020-03-24 19:40] VITALS: BP 118/63
== END 2020-03-24 19:30 | disposition home or self-care (01) ==
LOC: ER 17:12
DX: R10.84 Generalized abdominal pain (principal); K21.9 Gastro-esophageal reflux disease without esophagitis
CPT/HCPCS: 96361; 85025; 80048; 36415; 80076; 83690; 96375; 96374; 99283; J7030; J2405

== ENCOUNTER 2020-04-11 13:44 | Emergency (ER) | payer BC ==
--- OUTSIDE RECORDS SUMMARY | 2020-04-11 14:00 | XMS REPORT | Continuity of Care Document ---
:1985 Author Organization [facility] t Address [address] [place] [address] Dr. Webb [address] [place] [id number] Care Team Providers Name Role Phone Unavailable Unavailable Unavailable Problems This patient has no known problems. Allergies, Adverse Reactions, Alerts This patient has no known allergies or adverse reactions. Medications This patient has no known medications. Procedures This patient has no known procedures. Results This patient has no known results.
[2020-04-11] MEDS ORDERED: METHYLPREDNISOLONE 125 MG INJ ONE (14:42)
[2020-04-11] MEDS ORDERED: FENTANYL CITR 100 MCG/2 ML ONE (14:43)
[2020-04-11] MEDS ORDERED: ONDANSETRON 4 MG/2 ML VIAL ONE (14:43)
[2020-04-11] MEDS ORDERED: NA CHLORIDE 0.9% 1,000 ML ONE (14:43)
[2020-04-11 14:46] LABS: Absolute Lymphocytes (CBC) 1.9 K/uL (0.7-4.9); Basophils % 0.7 % (0-1.3); Hematocrit 43.4 % (39.6-49.0); Lymphocytes % 22.1 % (15.3-44.8); MPV 8.7 fL (7.6-11.3); RBC Red Blood Cell Count 4.73 M/uL (4.33-5.43)
[2020-04-11 15:05] LABS: Bilirubin Direct 0.1 mg/dL (0-0.2); Bilirubin Total 0.6 mg/dL (0.2-1.0); Potassium 3.5 mmol/L (3.5-5.1); Protein, Total 7.6 g/dL (6.4-8.2)
--- NOTE | 2020-04-11 15:30 | ER ---
Nurse's Notes [facility] Name: Slava Biswas Age: 34 yrs Sex: Male : 1985 Arrival Date: 04/11/2020 Time: 13:47 Bed 2 Private MD: Cecilio Merida Diagnosis: Ulcerative colitis, unspecified Presentation: 04/11 14:02 Chief complaint: Patient states: RLQ abd pain since 0500 this morning with nausea and jl7 diarrhea. Coronavirus screen: Proceed with normal triage. Patient denies a cough. Patient denies shortness of breath or difficulty breathing. Patient denies measured and/or subjective temperature greater than 100.4F prior to today's visit. Patient denies travel on a cruise ship or to a country the [facility] currently lists as an affected area. Patient denies contact with known and/or suspected case of COVID-19. Ebola Screen: No symptoms or risks identified at this time. Initial Sepsis Screen: Does the patient meet any 2 criteria? No. Patient's initial sepsis screen is negative. Does the patient have a suspected source of infection? No. Patient's initial sepsis screen is negative. Risk Assessment: Do you want to hurt yourself or someone else? Patient reports no desire to harm self or others. Onset of symptoms was April 11, 2020 at 05:00. Care prior to arrival: None. 14:02 Method Of Arrival: Ambulatory 7 14:02 Acuity: TRACEE 3 jl7 Triage Assessment: 14:03 General: Appears in no apparent distress. uncomfortable, Behavior is calm, cooperative, jl7 appropriate for age. Pain: Complains of pain in right lower quadrant Pain currently is 7 out of 10 on a pain scale. Historical: - Allergies: 14:03 Codeine (Hives, rash); jl7 14:03 Tylenol-Codeine #3; jl7 - Home Meds: 14:03 Prilosec 40 mg Oral cpDR 1 cap 2 times per day [Active]; Probiotic Oral daily [Active]; jl7 - PMHx: 14:03 Colitis; GERD; ulcertive colitis; jl7 - PSHx: 14:03 Hernia repair; Tonsillectomy; rotator cuff repair; deviated septum; jl7 - Immunization history:: Adult Immunizations up to date. - Social history:: Smoking status: Patient denies any tobacco usage or history of. Screenin:10 Abuse screen: Denies threats or abuse. Nutritional screening: No deficits noted. rb1 Tuberculosis screening: No symptoms or risk factors identified. Fall Risk None identified. Assessment: 14:10 General: Appears in no apparent distress. comfortable, Behavior is calm, cooperative, rb1 Denies fever. Pain: Complains of pain in right lower quadrant Pain currently is 7 out of 10 on a pain scale. Pain began 0500 this morning. Neuro: Level of Consciousness is awake, alert, obeys commands, Oriented to person, place, time, situation. Cardiovascular: Capillary refill < 3 seconds. Respiratory: Airway is patent Respiratory effort is even, unlabored, Respiratory pattern is regular, symmetrical. GI: Reports diarrhea, nausea. : No signs and/or symptoms were reported regarding the genitourinary system. Derm: Skin is pink, warm \T\ dry. 15:00 Reassessment: Patient appears in no apparent distress at this time. Patient and/or rb1 family updated on plan of care and expected duration. Pain level reassessed. Patient is alert, oriented x 3, equal unlabored respirations, skin warm/dry/pink. 15:45 Reassessment: Patient appears in no apparent distress at this time. Patient and/or rb1 family updated on plan of care and expected duration. Pain level reassessed. Patient is alert, oriented x 3, equal unlabored respirations, skin warm/dry/pink. Vital Signs: 14:02 BP 135 / 93; Pulse 97; Resp 17; Temp 98.4; Pulse Ox 100% ; Weight 117.93 kg; Height 5 jl7 ft. 10 in. (177.80 cm); Pain 7/10; 15:00 BP 120 / 77; Pulse 86; Resp 16; Pulse Ox 100% ; rb1 15:57 BP 131 / 83; Pulse 80; Resp 17; Pulse Ox 100% ; rb1 14:02 Body Mass Index 37.31 (117.93 kg, 177.80 cm) jl7 ED Course: 13:47 Patient arrived in ED. ag5 13:48 Cecilio Merida MD is Private Physician. ag5 14:03 Triage completed. jl7 14:03 Arm band placed on right wrist. jl7 14:05 Luc Portillo [facility]. pm1 14:05 Bacilio Newton MD is Attending Physician. pm1 14:05 Jaz Agustin, RN is Primary Nurse. rb1 14:26 Initial lab(s) drawn, by tx, sent to lab. Inserted saline lock: 20 gauge in right 5 antecubital area, using aseptic technique. Blood collected. 14:27 Patient has correct armband on for positive identification. Bed in low position. Call [facility] light in reach. Side rails up X 1. Pulse ox on. NIBP on. 14:27 Basic Metabolic Panel Sent. 5 14:28 CBC with Diff Sent. 5 14:28 Hepatic Function Sent. 5 14:28 Lipase Sent. 5 15:58 No provider procedures requiring assistance completed. IV discontinued, intact, rb1 bleeding controlled, No redness/swelling at site. Pressure dressing applied. Administered Medications: 14:45 Drug: fentaNYL (PF) 50 mcg Route: IVP; Site: right antecubital; rb1 15:00 Follow up: Response: No adverse reaction; Pain is decreased rb1 14:45 Drug: Zofran (Ondansetron) 4 mg Route: IVP; Site: right antecubital; rb1 15:00 Follow up: Response: No adverse reaction rb1 14:45 Drug: NS 0.9% 1000 ml Route: IV; Rate: 1000 ml; Site: right antecubital; rb1 15:43 Follow up: IV Status: Completed infusion rb1 14:45 Drug: SOLU-Medrol 125 mg Route: IVP; Site: right antecubital; rb1 15:00 Follow up: Response: No adverse reaction rb1 15:56 Drug: morphine 4 mg Route: IVP; Site: right antecubital; rb1 15:57 Follow up: Response: Medication administered at discharge. rb1 Outcome: 15:29 Discharge ordered by . pm1 15:58 Discharged to home ambulatory, with family. rb1 15:58 Condition: stable 15:58 Discharge instructions given to patient, Instructed on discharge instructions, follow up and referral plans. medication usage, Demonstrated understanding of instructions, follow-up care, medications, Prescriptions given X 2. 15:59 Patient left the ED. rb1 Signatures: Jaz Agustin, RN RN rb1 Luc Portillo, [employer] pm1 Jsoseline Velazquez 5 Brittny Zepeda RN RN jl7 Rosita Hair [employer] [facility] [employer]
--- NOTE | 2020-04-11 15:30 | EDPHYS ---
Physician Documentation [facility] Name: Slava Biswas Age: 34 yrs Sex: Male : 1985 Arrival Date: 04/11/2020 Time: 13:47 Bed 2 Private MD: Cecilio Merida ED Physician Bacilio Newton HPI: 04/11 14:09 This 34 yrs old Male presents to ER via Ambulatory with complaints of Side pm1 Pain, Ulcerative Colitis Flare Up. 14:09 The patient presents with abdominal pain right lower quadrant. Onset: The pm1 symptoms/episode began/occurred this morning. The symptoms do not radiate. Associated signs and symptoms: Pertinent positives: mucoid stool with blood this AM that has resolved, Pertinent negatives: nausea and vomiting. The symptoms are described as crampy. Modifying factors: The symptoms are alleviated by nothing, the symptoms are aggravated by nothing. Severity of pain: in the emergency department the pain is actually worse. The patient has experienced similar episodes in the past, multiple times, and the symptoms today are exactly the same, to previous ulcerative colitis flare up. The patient has not recently seen a physician, Patient was supposed to be started on biologics but treatment plan has been postponed due to ortega virus. Historical: - Allergies: 14:03 Codeine (Hives, rash); jl7 14:03 Tylenol-Codeine #3; jl7 - Home Meds: 14:03 Prilosec 40 mg Oral cpDR 1 cap 2 times per day [Active]; Probiotic Oral daily [Active]; jl7 - PMHx: 14:03 Colitis; GERD; ulcertive colitis; jl7 - PSHx: 14:03 Hernia repair; Tonsillectomy; rotator cuff repair; deviated septum; jl7 - Immunization history:: Adult Immunizations up to date. - Social history:: Smoking status: Patient denies any tobacco usage or history of. ROS: 14:09 Constitutional: Negative for fever, chills, and weight loss, Cardiovascular: Negative pm1 for chest pain, palpitations, and edema, Respiratory: Negative for shortness of breath, cough, wheezing, and pleuritic chest pain. 14:09 Back: Negative for injury and pain, : Negative for injury, bleeding, discharge, and swelling, MS/Extremity: Negative for injury and deformity, Skin: Negative for injury, rash, and discoloration, Neuro: Negative for headache, weakness, numbness, tingling, and seizure. 14:09 Abdomen/GI: Positive for abdominal pain, diarrhea, Negative for nausea and vomiting. Exam: 14:09 Constitutional: This is a well developed, well nourished patient who is awake, alert, pm1 and in no acute distress. Head/Face: Normocephalic, atraumatic. Chest/axilla: Normal chest wall appearance and motion. Nontender with no deformity. No lesions are appreciated. Cardiovascular: Regular rate and rhythm with a normal S1 and S2. No gallops, murmurs, or rubs. Normal PMI, no JVD. No pulse deficits. Respiratory: Lungs have equal breath sounds bilaterally, clear to auscultation and percussion. No rales, rhonchi or wheezes noted. No increased work of breathing, no retractions or nasal flaring. Abdomen/GI: Soft, non-tender, with normal bowel sounds. No distension or tympany. No guarding or rebound. No evidence of tenderness throughout. Back: No spinal tenderness. No costovertebral tenderness. Full range of motion. Skin: Warm, dry with normal turgor. Normal color with no rashes, no lesions, and no evidence of cellulitis. MS/ Extremity: Pulses equal, no cyanosis. Neurovascular intact. Full, normal range of motion. 14:09 Neuro: Exam negative for acute changes, Orientation: is normal, Mentation: is normal, Motor: is normal, moves all fours. Vital Signs: 14:02 BP 135 / 93; Pulse 97; Resp 17; Temp 98.4; Pulse Ox 100% ; Weight 117.93 kg; Height 5 jl7 ft. 10 in. (177.80 cm); Pain 7/10; 15:00 BP 120 / 77; Pulse 86; Resp 16; Pulse Ox 100% ; rb1 15:57 BP 131 / 83; Pulse 80; Resp 17; Pulse Ox 100% ; rb1 14:02 Body Mass Index 37.31 (117.93 kg, 177.80 cm) jl7 MDM: 14:05 Patient medically screened. pm1 15:28 Data reviewed: vital signs. Data interpreted: Pulse oximetry: on room air is 100 %. pm1 Interpretation: normal. Counseling: I had a detailed discussion with the patient and/or guardian regarding: the historical points, exam findings, and any diagnostic results supporting the discharge/admit diagnosis, lab results, the need for outpatient follow up, to return to the emergency department if symptoms worsen or persist or if there are any questions or concerns that arise at home. 04/11 14:08 Order name: Basic Metabolic Panel; Complete Time: 15:21 pm1 04/11 14:08 Order name: CBC with Diff; Complete Time: 15:21 pm1 04/11 14:08 Order name: Hepatic Function; Complete Time: 15:21 pm1 04/11 14:08 Order name: Lipase; Complete Time: 15:21 pm1 04/11 14:08 Order name: IV Saline Lock; Complete Time: 14: pm1 04/11 14:08 Order name: Labs collected and sent; Complete Time: 14: pm1 Administered Medications: 14:45 Drug: fentaNYL (PF) 50 mcg Route: IVP; Site: right antecubital; rb1 15:00 Follow up: Response: No adverse reaction; Pain is decreased rb1 14:45 Drug: Zofran (Ondansetron) 4 mg Route: IVP; Site: right antecubital; rb1 15:00 Follow up: Response: No adverse reaction rb1 14:45 Drug: NS 0.9% 1000 ml Route: IV; Rate: 1000 ml; Site: right antecubital; rb1 15:43 Follow up: IV Status: Completed infusion rb1 14:45 Drug: SOLU-Medrol 125 mg Route: IVP; Site: right antecubital; rb1 15:00 Follow up: Response: No adverse reaction rb1 15:56 Drug: morphine 4 mg Route: IVP; Site: right antecubital; rb1 15:57 Follow up: Response: Medication administered at discharge. rb1 Disposition: 17:11 Co-signature as Attending Physician, Bacilio Newton MD. rn Disposition: 04/11/20 15:29 Discharged to Home. Impression: Ulcerative colitis, unspecified. - Condition is Stable. - Discharge Instructions: Ulcerative Colitis, Adult. - Prescriptions for Tramadol 50 mg Oral Tablet - take 1 tablet by ORAL route every 8 hours as needed; 12 tablet. Medrol (Thee) 4 mg Oral Tablets, Dose Pack - take 1 tablet by ORAL route as directed - follow package instructions; 1 packet. - Medication Reconciliation Form, Thank You Letter, Antibiotic Education, Prescription Opioid Use form. - Follow up: Emergency Department; When: As needed; Reason: Worsening of condition. Follow up: Private Physician; When: 2 - 3 days; Reason: Recheck today's complaints, Continuance of care, Re-evaluation by your physician. - Problem is new. - Symptoms have improved. Signatures: Dispatcher [employer] EDMS Bacilio Newton MD MD rn Barber, Rebecca RN RN Luc Zamora NP VIOLIN MECHANIC pm1 Brittny Zepeda RN RN jl7 Corrections: (The following items were deleted from the chart) 15:59 15:29 04/11/2020 15:29 Discharged to Home. Impression: Ulcerative colitis, unspecified. rb1 Condition is Stable. Forms are Medication Reconciliation Form, Thank You Letter, Antibiotic Education, Prescription Opioid Use. Follow up: Emergency Department; When: As needed; Reason: Worsening of condition. Follow up: Private Physician; When: 2 - 3 days; Reason: Recheck today's complaints, Continuance of care, Re-evaluation by your physician. Problem is new. Symptoms have improved. pm1
[2020-04-11] MEDS ORDERED: MORPHINE 4 MG/ML SYR ONE (15:54)
[2020-04-11 16:06] VITALS: TEMP 98.4; O2SAT 100
[2020-04-11 16:09] VITALS: BP 131/83
== END 2020-04-11 15:59 | disposition home or self-care (01) ==
LOC: ER 13:44
DX: K51.90 Ulcerative colitis, unspecified, without complications (principal); K21.9 Gastro-esophageal reflux disease without esophagitis; Z88.5 Allergy status to narcotic agent; Z88.6 Allergy status to analgesic agent
CPT/HCPCS: 96361; 85025; 80048; 36415; 80076; 83690; 96375; 96374; 99284; J3010; J7030; J2930; J2405

== ENCOUNTER 2020-04-24 13:39 | Emergency (ER) | payer BC ==
--- OUTSIDE RECORDS SUMMARY | 2020-04-24 13:41 | XMS REPORT | Continuity of Care Document ---
:1985 Author Organization [facility] t Address [address] [place] [address] Dr. Webb [address] [place] [id number] Care Team Providers Name Role Phone Unavailable Unavailable Unavailable Problems This patient has no known problems. Allergies, Adverse Reactions, Alerts This patient has no known allergies or adverse reactions. Medications This patient has no known medications. Procedures This patient has no known procedures. Results This patient has no known results.
[2020-04-24 15:20] LABS: Absolute Lymphocytes (CBC) 1.4 K/uL (0.7-4.9); Basophils % 0.5 % (0-1.3); Hematocrit 47.7 % (39.6-49.0); Lymphocytes % 13.9 % (15.3-44.8); MPV 8.9 fL (7.6-11.3); RBC Red Blood Cell Count 5.23 M/uL (4.33-5.43)
[2020-04-24 15:32] LABS: Bilirubin Direct 0.1 mg/dL (0-0.2); Bilirubin Total 0.6 mg/dL (0.2-1.0); Potassium 3.8 mmol/L (3.5-5.1); Protein, Total 8.2 g/dL (6.4-8.2)
[2020-04-24] MEDS ORDERED: ONDANSETRON 4 MG/2 ML VIAL ONE (15:39)
[2020-04-24] MEDS ORDERED: FENTANYL CITR 100 MCG/2 ML ONE (15:39)
[2020-04-24] MEDS ORDERED: METHYLPREDNISOLONE 125 MG INJ ONE (15:40)
--- NOTE | 2020-04-24 16:42 | EDPHYS ---
Physician Documentation [facility] Name: Slava Biswas Age: 34 yrs Sex: Male : 1985 Arrival Date: 04/24/2020 Time: 13:40 Bed 19 Private MD: Cecilio Merida ED Physician Bacilio Newton HPI: 04/24 16:37 This 34 yrs old Male presents to ER via Ambulatory with complaints of Side jr8 Pain, Ulcerative Colitis Flare Up. 16:37 The patient presents with abdominal pain right lower quadrant. Onset: The jr8 symptoms/episode began/occurred gradually, 2 day(s) ago. The symptoms do not radiate. Associated signs and symptoms: Pertinent positives: nausea. The symptoms are described as stabbing. Modifying factors: The symptoms are alleviated by nothing, the symptoms are aggravated by nothing. Severity of pain: At its worst the pain was moderate in the emergency department the pain is unchanged. The patient has experienced similar episodes in the past, multiple times. The patient has not recently seen a physician. History of UC. Feels that he is having a flare up. Seen two weeks ago for same process . Historical: - Allergies: 14:04 Tylenol-Codeine #3; ca1 14:04 Codeine (Hives, rash); ca1 - Home Meds: 14:04 Prilosec 40 mg Oral cpDR 1 cap 2 times per day [Active]; Probiotic Oral daily [Active]; ca1 - PMHx: 14:04 Colitis; GERD; ulcertive colitis; ca1 - PSHx: 14:04 Hernia repair; Tonsillectomy; ca1 14:05 rotator cuff repair; deviated septum; ca1 - Immunization history:: Adult Immunizations up to date. - Social history:: Smoking status: Patient denies any tobacco usage or history of. ROS: 16:37 Eyes: Negative for injury, pain, redness, and discharge, ENT: Negative for injury, jr8 pain, and discharge, Neck: Negative for injury, pain, and swelling, Cardiovascular: Negative for chest pain, palpitations, and edema, Respiratory: Negative for shortness of breath, cough, wheezing, and pleuritic chest pain, Back: Negative for injury and pain, MS/Extremity: Negative for injury and deformity, Skin: Negative for injury, rash, and discoloration, Neuro: Negative for headache, weakness, numbness, tingling, and seizure. 16:37 Abdomen/GI: Positive for abdominal pain, nausea, diarrhea, Negative for vomiting, constipation, abdominal cramps, abdominal distension, anorexia, dysphagia, hematemesis, black/tarry stool, rectal pain, rectal bleeding, bowel incontinence, flatulence. Exam: 16:37 Eyes: Pupils equal round and reactive to light, extra-ocular motions intact. Lids and jr8 lashes normal. Conjunctiva and sclera are non-icteric and not injected. Cornea within normal limits. Periorbital areas with no swelling, redness, or edema. ENT: Nares patent. No nasal discharge, no septal abnormalities noted. Tympanic membranes are normal and external auditory canals are clear. Oropharynx with no redness, swelling, or masses, exudates, or evidence of obstruction, uvula midline. Mucous membranes moist. Neck: Trachea midline, no thyromegaly or masses palpated, and no cervical lymphadenopathy. Supple, full range of motion without nuchal rigidity, or vertebral point tenderness. No Meningismus. Cardiovascular: Regular rate and rhythm with a normal S1 and S2. No gallops, murmurs, or rubs. Normal PMI, no JVD. No pulse deficits. Respiratory: Lungs have equal breath sounds bilaterally, clear to auscultation and percussion. No rales, rhonchi or wheezes noted. No increased work of breathing, no retractions or nasal flaring. Back: No spinal tenderness. No costovertebral tenderness. Full range of motion. Skin: Warm, dry with normal turgor. Normal color with no rashes, no lesions, and no evidence of cellulitis. MS/ Extremity: Pulses equal, no cyanosis. Neurovascular intact. Full, normal range of motion. Neuro: Awake and alert, GCS 15, oriented to person, place, time, and situation. Cranial nerves II-XII grossly intact. Motor strength 5/5 in all extremities. Sensory grossly intact. Cerebellar exam normal. Normal gait. 16:37 Abdomen/GI: Inspection: abdomen appears normal, Bowel sounds: active, all quadrants, Palpation: soft, in all quadrants, mild abdominal tenderness, in the right lower quadrant and left lower quadrant, mass, is not appreciated, rebound tenderness, is not appreciated, voluntary guarding, is not appreciated, involuntary guarding, is not appreciated, no appreciated organomegaly, Indicators: McBurney's point is not tender, Titus's sign is negative, Rovsing's sign is negative, Liver: tenderness, is not appreciated. Vital Signs: 14:01 BP 139 / 99; Pulse 90; Resp 15 S; Temp 97.6(TE); Pulse Ox 98% on R/A; Weight 97.98 kg ca1 (R); Height 5 ft. 10 in. (177.80 cm) (R); Pain 8/10; 14:01 Body Mass Index 30.99 (97.98 kg, 177.80 cm) ca1 MDM: 14:45 Patient medically screened. jr8 16:37 Data reviewed: vital signs, nurses notes, lab test result(s), and as a result, I will jr8 discharge patient. Data interpreted: Pulse oximetry: on room air is 98 %. Interpretation: normal. 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 Response to treatment: the patient's symptoms have markedly improved after treatment. ED course: Patient feeling much better. Pain markedly decreased. Abdominal reexamination benign at this time. Labs stable. Will d/c home to f/u with GI. Knows to come back if something changes or worsens . 16:45 ED course: [place] [employer] was obtained on patient. Has Risk score of 620 which is moderate jr8 to high. Last prescription was for 12 tramadol on 04/11/2020. Patient based on time frame can have more. Only given 12 this time as well . 04/24 14:46 Order name: Basic Metabolic Panel; Complete Time: 16:03 04/24 14:46 Order name: CBC with Diff; Complete Time: 16:03 04/24 14:46 Order name: Hepatic Function; Complete Time: 16:03 04/24 14:46 Order name: Lipase; Complete Time: 16:03 04/24 14:46 Order name: IV Saline Lock; Complete Time: 14:56 04/24 14:46 Order name: Labs collected and sent; Complete Time: 15:04 jr8 Administered Medications: 15:48 Drug: SOLU-Medrol 125 mg Route: IVP; Site: right antecubital; ls4 16:52 Follow up: Response: No adverse reaction; Marked relief of symptoms ls4 15:48 Drug: fentaNYL (PF) 50 mcg Route: IVP; Site: right antecubital; ls4 16:51 Follow up: Response: No adverse reaction; Marked relief of symptoms ls4 15:48 Drug: Zofran (Ondansetron) 4 mg Route: IVP; Site: right antecubital; ls4 16:51 Follow up: Response: No adverse reaction; Marked relief of symptoms ls4 Disposition: 17:04 Co-signature as Attending Physician, Bacilio Newton MD. rn Disposition: 04/24/20 16:41 Discharged to Home. Impression: Abdominal and pelvic pain. - Condition is Stable. - Discharge Instructions: Abdominal Pain, Adult, Ulcerative Colitis, Adult. - Prescriptions for Tramadol 50 mg Oral Tablet - take 1 tablet by ORAL route every 8 hours as needed; 12 tablet. Medrol (Thee) 4 mg Oral Tablets, Dose Pack - take 1 tablet by ORAL route as directed - follow package instructions; 1 packet. - Medication Reconciliation Form, Thank You Letter, Antibiotic Education, Prescription Opioid Use form. - Follow up: Private Physician; When: 2 - 3 days; Reason: Recheck today's complaints, Continuance of care, Re-evaluation by your physician. Follow up: Cecilio Merida MD; When: 2 - 3 days; Reason: Recheck today's complaints, Continuance of care, Re-evaluation by your physician. - Problem is new. - Symptoms have improved. Signatures: Dispatcher [employer] EDMS Bacilio Newton MD MD rn Roszak, Josh, PA PA jr8 Jaz Agustin, RN RN rb1 Claire Blue RN RN ls4 Vannessa Sanchez RN RN ca1 Corrections: (The following items were deleted from the chart) 16:52 16:41 04/24/2020 16:41 Discharged to Home. Impression: Abdominal and pelvic pain. rb1 Condition is Stable. Forms are Medication Reconciliation Form, Thank You Letter, Antibiotic Education, Prescription Opioid Use. Follow up: Private Physician; When: 2 - 3 days; Reason: Recheck today's complaints, Continuance of care, Re-evaluation by your physician. Follow up: Cecilio Merida; When: 2 - 3 days; Reason: Recheck today's complaints, Continuance of care, Re-evaluation by your physician. Problem is new. Symptoms have improved. jr8
--- NOTE | 2020-04-24 16:42 | ER ---
Nurse's Notes [facility] Name: Slava Biswas Age: 34 yrs Sex: Male : 1985 Arrival Date: 04/24/2020 Time: 13:40 Bed 19 Private MD: Cecilio Merida Diagnosis: Abdominal and pelvic pain Presentation: 04/24 14:01 Chief complaint: Patient states: has ulcerative colitis, symptoms like the usual flare ca1 up that I have, nausea, diarrhea, RLQ pain. Last flare up was 2 weeks ago. Coronavirus screen: Proceed with normal triage. Patient denies a cough. Patient denies shortness of breath or difficulty breathing. Patient denies measured and/or subjective temperature greater than 100.4F prior to today's visit. Patient denies travel on a cruise ship or to a country the [facility] currently lists as an affected area. Patient denies contact with known and/or suspected case of COVID-19. Ebola Screen: Patient negative for fever greater than or equal to 101.5 degrees Fahrenheit, and additional compatible Ebola Virus Disease symptoms Patient denies exposure to infectious person. Patient denies travel to an Ebola-affected area in the 21 days before illness onset. No symptoms or risks identified at this time. Initial Sepsis Screen: Does the patient meet any 2 criteria? No. Patient's initial sepsis screen is negative. Does the patient have a suspected source of infection? No. Patient's initial sepsis screen is negative. Risk Assessment: Do you want to hurt yourself or someone else? Patient reports no desire to harm self or others. Onset of symptoms was April 24, 2020. 14:01 Acuity: TRACEE 3 ca1 14:01 Method Of Arrival: Ambulatory ca1 Triage Assessment: 16:52 General: Appears in no apparent distress. uncomfortable, Behavior is calm, cooperative. ls4 Historical: - Allergies: 14:04 Tylenol-Codeine #3; ca1 14:04 Codeine (Hives, rash); ca1 - Home Meds: 14:04 Prilosec 40 mg Oral cpDR 1 cap 2 times per day [Active]; Probiotic Oral daily [Active]; ca1 - PMHx: 14:04 Colitis; GERD; ulcertive colitis; ca1 - PSHx: 14:04 Hernia repair; Tonsillectomy; ca1 14:05 rotator cuff repair; deviated septum; ca1 - Immunization history:: Adult Immunizations up to date. - Social history:: Smoking status: Patient denies any tobacco usage or history of. Screenin:51 Abuse screen: Denies threats or abuse. Nutritional screening: No deficits noted. rb1 Tuberculosis screening: No symptoms or risk factors identified. Fall Risk None identified. Vital Signs: 14:01 BP 139 / 99; Pulse 90; Resp 15 S; Temp 97.6(TE); Pulse Ox 98% on R/A; Weight 97.98 kg ca1 (R); Height 5 ft. 10 in. (177.80 cm) (R); Pain 8/10; 14:01 Body Mass Index 30.99 (97.98 kg, 177.80 cm) ca1 ED Course: 13:40 Patient arrived in ED. ag5 13:42 Cecilio Merida MD is Private Physician. ag5 14:04 Triage completed. ca1 14:05 Arm band placed on right wrist. ca1 14:45 Luis Carlos Thomas PA is PHCP. jr8 14:45 Bacilio Newton MD is Attending Physician. jr8 14:56 Claire Blue RN is Primary Nurse. ls4 15:04 No provider procedures requiring assistance completed. Initial lab(s) drawn, by md, [facility] sent to lab. Inserted saline lock: 18 gauge in right antecubital area, using aseptic technique. Blood collected. Patient maintains SpO2 saturation greater than 95% on room air. 16:41 Cecilio Merida MD is Referral Physician. jr8 16:51 Patient has correct armband on for positive identification. Bed in low position. Call rb1 light in reach. Side rails up X 1. Pulse ox on. NIBP on. 16:51 IV discontinued, intact, bleeding controlled, No redness/swelling at site. Pressure rb1 dressing applied. Administered Medications: 15:48 Drug: SOLU-Medrol 125 mg Route: IVP; Site: right antecubital; ls4 16:52 Follow up: Response: No adverse reaction; Marked relief of symptoms ls4 15:48 Drug: fentaNYL (PF) 50 mcg Route: IVP; Site: right antecubital; ls4 16:51 Follow up: Response: No adverse reaction; Marked relief of symptoms ls4 15:48 Drug: Zofran (Ondansetron) 4 mg Route: IVP; Site: right antecubital; ls4 16:51 Follow up: Response: No adverse reaction; Marked relief of symptoms ls4 Outcome: 16:41 Discharge ordered by . hilario 16:51 Discharged to home ambulatory. rb1 16:51 Condition: stable 16:51 Discharge instructions given to patient, Instructed on discharge instructions, follow up and referral plans. medication usage, Demonstrated understanding of instructions, follow-up care, medications, Prescriptions given X 2. 16:52 Patient left the ED. rb1 Signatures: Luis Carlos Thomas PA PA jr8 Jaz Agustin, RN RN rb1 Claire Blue RN RN ls4 Vannessa Sanchez RN RN ca1 Rosita Hair5
[2020-04-24 17:39] VITALS: BP 139/99; TEMP 97.6; O2SAT 98
== END 2020-04-24 16:52 | disposition home or self-care (01) ==
LOC: ER 13:39
DX: R10.2 Pelvic and perineal pain (principal); K51.90 Ulcerative colitis, unspecified, without complications; Z88.5 Allergy status to narcotic agent; Z88.6 Allergy status to analgesic agent
CPT/HCPCS: 85025; 80048; 36415; 80076; 83690; 96375; 96374; 99284; J3010; J2930; J2405

== ENCOUNTER 2020-05-08 11:50 | Emergency (ER) | payer BC ==
--- OUTSIDE RECORDS SUMMARY | 2020-05-08 11:54 | XMS REPORT | Continuity of Care Document ---
:1985 Author Organization [facility] t Address [address] [place] [address] Dr. Webb [address] [place] [id number] Care Team Providers Name Role Phone Unavailable Unavailable Unavailable Problems This patient has no known problems. Allergies, Adverse Reactions, Alerts This patient has no known allergies or adverse reactions. Medications This patient has no known medications. Procedures This patient has no known procedures. Results This patient has no known results.
[2020-05-08] MEDS ORDERED: FENTANYL CITR 100 MCG/2 ML ONE (12:37)
[2020-05-08] MEDS ORDERED: METHYLPREDNISOLONE 125 MG INJ ONE (12:37)
[2020-05-08] MEDS ORDERED: ONDANSETRON 4 MG/2 ML VIAL ONE (12:37)
[2020-05-08] MEDS ORDERED: NA CHLORIDE 0.9% 1,000 ML ONE (12:37)
[2020-05-08 12:53] LABS: Absolute Lymphocytes (CBC) 1.2 K/uL (0.7-4.9); Basophils % 0.4 % (0-1.3); Hematocrit 45.7 % (39.6-49.0); Lymphocytes % 14.8 % (15.3-44.8); MPV 9.1 fL (7.6-11.3)
[2020-05-08 13:04] LABS: Albumin 4.1 g/dL (3.4-5.0); Bilirubin Direct 0.1 mg/dL (0-0.2); Bilirubin Total 0.6 mg/dL (0.2-1.0); Potassium 3.8 mmol/L (3.5-5.1); Protein, Total 8.2 g/dL (6.4-8.2)
--- NOTE | 2020-05-08 13:17 | ER ---
Nurse's Notes [facility] Name: Slava Biswas Age: 34 yrs Sex: Male : 1985 Arrival Date: 05/08/2020 Time: 11:52 Bed 5 Private MD: Cecilio Merida Diagnosis: Unspecified abdominal pain-ulcerative colitis flare up Presentation: 05/08 12:05 Chief complaint: Right sided lower abdominal pain, diarrhea, and nausea since last hb night. Hx of ulcerative colitis, reports s/s are similar to usual flare up. Coronavirus screen: Proceed with normal triage. Ebola Screen: No symptoms or risks identified at this time. Initial Sepsis Screen: Does the patient meet any 2 criteria? HR > 90 bpm. No. Patient's initial sepsis screen is negative. Does the patient have a suspected source of infection? No. Patient's initial sepsis screen is negative. Risk Assessment: Do you want to hurt yourself or someone else? Patient reports no desire to harm self or others. Onset of symptoms was May 08, 2020. 12:05 Method Of Arrival: Ambulatory hb 12:05 Acuity: TRACEE 3 hb Triage Assessment: 12:09 General: Appears distressed, uncomfortable, Behavior is cooperative, appropriate for bp age, anxious. Pain: Complains of pain in right lower quadrant. EENT: No deficits noted. Neuro: No deficits noted. Cardiovascular: No deficits noted. Respiratory: No deficits noted. GI: Reports lower abdominal pain, nausea. : No signs and/or symptoms were reported regarding the genitourinary system. Derm: No deficits noted. Musculoskeletal: No deficits noted. Historical: - Allergies: 12:08 Codeine (Hives, rash); hb - Home Meds: 12:08 Prilosec 40 mg Oral cpDR 1 cap 2 times per day [Active]; Probiotic Oral daily [Active]; hb - PMHx: 12:08 Colitis; GERD; ulcertive colitis; hb - PSHx: 12:08 Hernia repair; Tonsillectomy; rotator cuff repair; deviated septum; hb - Immunization history:: Adult Immunizations up to date. - Social history:: Smoking status: Patient denies any tobacco usage or history of. Screenin:10 Abuse screen: Denies threats or abuse. Denies injuries from another. Nutritional bp screening: No deficits noted. Tuberculosis screening: No symptoms or risk factors identified. Fall Risk None identified. Assessment: 12:10 General: SEE TRIAGE NOTE. bp 12:38 Reassessment: Patient is alert, oriented x 3, equal unlabored respirations, skin aa5 warm/dry/pink. Pt sitting up in bed, lights dimmed for comfort, pt notified of wait time for lab results, pt verbalized understanding. . 13:09 Reassessment: ALL CURRENT ORDERS IN PROCESS, VS STABLE ON MONITOR. bp 13:29 Reassessment: D/C ON HOLD FOR IVF COMPLETION. bp 13:49 Reassessment: PT D/C HOME AMBULATORY, DX WITH UC FLARE. bp Vital Signs: 12:05 BP 156 / 106; Pulse 102; Resp 16; Temp 98.9(TE); Pulse Ox 100% on R/A; Weight 117.93 hb kg; Height 5 ft. 10 in. (177.80 cm); Pain 8/10; 13:09 BP 134 / 95; Pulse 81; Resp 17; Pulse Ox 100% ; bp 13:49 BP 128 / 98; Pulse 78; Resp 16; Temp 98; Pulse Ox 98% ; bp 12:05 Body Mass Index 37.31 (117.93 kg, 177.80 cm) hb ED Course: 11:52 Patient arrived in ED. ag5 11:54 Cecilio Merida MD is Private Physician. ag5 12:07 Triage completed. hb 12:08 Candido Weaver, HARSHA is Primary Nurse. bp 12:08 Arm band placed on. hb 12:10 Luc Portillo, FARRAH is PHCP. pm1 12:10 Rei Noguera MD is Attending Physician. pm1 12:10 Patient has correct armband on for positive identification. Bed in low position. Call bp light in reach. Side rails up X2. 12:35 Inserted saline lock: 22 gauge in right antecubital area, using aseptic technique. aa5 Blood collected. 12:37 CBC with Automated Diff Sent. mh5 12:37 Basic Metabolic Panel Sent. mh5 12:37 Basic Metabolic Panel Sent. 5 12:38 CBC with Diff Sent. mh5 12:38 Hepatic Function Sent. mh5 12:38 Lipase Sent. 5 12:38 Initial lab(s) drawn, by or, sent to lab. 5 13:49 No provider procedures requiring assistance completed. IV discontinued, intact, bp bleeding controlled, No redness/swelling at site. Pressure dressing applied. Administered Medications: 12:35 Drug: fentaNYL (PF) 50 mcg Route: IVP; Site: right antecubital; aa5 12:43 Follow up: Response: No adverse reaction aa5 12:35 Drug: Zofran (Ondansetron) 4 mg Route: IVP; Site: right antecubital; aa5 12:43 Follow up: Response: No adverse reaction aa5 12:35 Drug: NS 0.9% 1000 ml Route: IV; Rate: 1 bolus; Site: right antecubital; aa5 13:29 Follow up: IV Status: Completed infusion; IV Intake: 1000ml bp 12:35 Drug: SOLU-Medrol 125 mg Route: IVP; Site: right antecubital; aa5 12:43 Follow up: Response: No adverse reaction aa5 13:29 Drug: morphine 4 mg Route: IVP; Site: right antecubital; bp 13:51 Follow up: Response: Pain is decreased bp Intake: 13:29 IV: 1000ml; Total: 1000ml. bp Outcome: 13:16 Discharge ordered by MD. pm1 13:49 Discharged to home ambulatory. bp 13:49 Condition: stable 13:49 Discharge instructions given to patient, Instructed on discharge instructions, follow up and referral plans. medication usage, Demonstrated understanding of instructions, follow-up care, medications, Prescriptions given X 2. 13:52 Patient left the ED. bp Signatures: Marzena Rust RN RN aa5 Luc Portillo, FARRAH GAS ENGINE OPERATOR [employer] pm1 Esther Nice RN RN hb Martinez, Maria 5 Candido Weaver RN RN bp Gaskin, Ajare 5 Corrections: (The following items were deleted from the chart) 12:42 12:38 Inserted saline lock: 22 gauge in right antecubital area, using aseptic 5 technique. Blood collected. [facility]
--- NOTE | 2020-05-08 13:17 | EDPHYS ---
Physician Documentation [facility] Name: Slava Biswas Age: 34 yrs Sex: Male : 1985 Arrival Date: 05/08/2020 Time: 11:52 Bed 5 Private MD: Cecilio Merida ED Physician Rei Noguera HPI: 05/08 12:36 This 34 yrs old Male presents to ER via Ambulatory with complaints of pm1 Abdominal pain, Ulcerative Colitis Flare Up. 12:36 The patient presents with abdominal pain right lower quadrant. Onset: The pm1 symptoms/episode began/occurred last night. The symptoms do not radiate. Associated signs and symptoms: Pertinent positives: nausea, Pertinent negatives: constipation, diarrhea, dysuria, fever, vomiting. The symptoms are described as achy. Modifying factors: The symptoms are alleviated by nothing, the symptoms are aggravated by nothing. Severity of pain: in the emergency department the pain is actually worse. The patient has experienced similar episodes in the past, multiple times, and the symptoms today are exactly the same, to previous ulcerative colitis flare up. The patient has not recently seen a physician. Historical: - Allergies: 12:08 Codeine (Hives, rash); hb - Home Meds: 12:08 Prilosec 40 mg Oral cpDR 1 cap 2 times per day [Active]; Probiotic Oral daily [Active]; hb - PMHx: 12:08 Colitis; GERD; ulcertive colitis; hb - PSHx: 12:08 Hernia repair; Tonsillectomy; rotator cuff repair; deviated septum; hb - Immunization history:: Adult Immunizations up to date. - Social history:: Smoking status: Patient denies any tobacco usage or history of. ROS: 12:36 Constitutional: Negative for fever, chills, and weight loss, Cardiovascular: Negative pm1 for chest pain, palpitations, and edema, Respiratory: Negative for shortness of breath, cough, wheezing, and pleuritic chest pain. 12:36 Back: Negative for injury and pain, : Negative for injury, bleeding, discharge, and swelling, MS/Extremity: Negative for injury and deformity, Skin: Negative for injury, rash, and discoloration, Neuro: Negative for headache, weakness, numbness, tingling, and seizure. 12:36 Abdomen/GI: Positive for abdominal pain, nausea, of the right lower quadrant, Negative for vomiting, diarrhea. Exam: 12:36 Constitutional: This is a well developed, well nourished patient who is awake, alert, pm1 and in no acute distress. Head/Face: Normocephalic, atraumatic. 12:36 Back: No spinal tenderness. No costovertebral tenderness. Full range of motion. Skin: Warm, dry with normal turgor. Normal color with no rashes, no lesions, and no evidence of cellulitis. MS/ Extremity: Pulses equal, no cyanosis. Neurovascular intact. Full, normal range of motion. 12:36 Cardiovascular: Exam negative for acute changes, Rate: normal, Rhythm: regular, Pulses: no pulse deficits are appreciated. 12:36 Respiratory: Exam negative for acute changes, respiratory distress, shortness of breath. 12:36 Abdomen/GI: Inspection: abdomen appears normal, Palpation: abdomen is soft and non-tender, in all quadrants, mass, is not appreciated. 12:36 Neuro: Exam negative for acute changes, Orientation: is normal, Mentation: is normal, Motor: is normal, no acute changes, moves all fours. Vital Signs: 12:05 BP 156 / 106; Pulse 102; Resp 16; Temp 98.9(TE); Pulse Ox 100% on R/A; Weight 117.93 hb kg; Height 5 ft. 10 in. (177.80 cm); Pain 8/10; 13:09 BP 134 / 95; Pulse 81; Resp 17; Pulse Ox 100% ; bp 13:49 BP 128 / 98; Pulse 78; Resp 16; Temp 98; Pulse Ox 98% ; bp 12:05 Body Mass Index 37.31 (117.93 kg, 177.80 cm) hb MDM: 12:11 Patient medically screened. pm1 13:09 Data reviewed: vital signs. Data interpreted: Pulse oximetry: on room air is 100 %. pm1 Interpretation: normal. Counseling: I had a detailed discussion with the patient and/or guardian regarding: the historical points, exam findings, and any diagnostic results supporting the discharge/admit diagnosis, lab results, the need for outpatient follow up, a apartment leasing consultant, to return to the emergency department if symptoms worsen or persist or if there are any questions or concerns that arise at home. 13:19 ED course: Patient requested one more day of tramadol for pain if possible. STICK PULLER aware pm1 reviewed and will prescribe one additional day for UC flare up. 05/08 12:13 Order name: Basic Metabolic Panel pm1 05/08 12:13 Order name: CBC with Diff pm1 05/08 12:13 Order name: Hepatic Function; Complete Time: 13:09 pm1 05/08 12:13 Order name: Lipase; Complete Time: 13:09 pm1 05/08 12:13 Order name: Basic Metabolic Panel; Complete Time: 13:09 EDMS 05/08 12:13 Order name: CBC with Automated Diff; Complete Time: 13:09 EDMS 05/08 12:13 Order name: IV Saline Lock; Complete Time: 12:37 pm1 05/08 12:13 Order name: Labs collected and sent; Complete Time: 12:37 pm1 Administered Medications: 12:35 Drug: fentaNYL (PF) 50 mcg Route: IVP; Site: right antecubital; aa5 12:43 Follow up: Response: No adverse reaction aa5 12:35 Drug: Zofran (Ondansetron) 4 mg Route: IVP; Site: right antecubital; aa5 12:43 Follow up: Response: No adverse reaction aa5 12:35 Drug: NS 0.9% 1000 ml Route: IV; Rate: 1 bolus; Site: right antecubital; aa5 13:29 Follow up: IV Status: Completed infusion; IV Intake: 1000ml bp 12:35 Drug: SOLU-Medrol 125 mg Route: IVP; Site: right antecubital; aa5 12:43 Follow up: Response: No adverse reaction aa5 13:29 Drug: morphine 4 mg Route: IVP; Site: right antecubital; bp 13:51 Follow up: Response: Pain is decreased bp Disposition: 22:07 Co-signature as Attending Physician, Rei Noguera MD I agree with the assessment and umang plan of care. Disposition: 05/08/20 13:16 Discharged to Home. Impression: Unspecified abdominal pain - ulcerative colitis flare up. - Condition is Stable. - Discharge Instructions: Abdominal Pain, Adult, Ulcerative Colitis, Adult. - Prescriptions for Tramadol 50 mg Oral Tablet - take 1 tablet by ORAL route every 8 hours As needed as needed; 15 tablet. Medrol (Thee) 4 mg Oral Tablets, Dose Pack - take 1 tablet by ORAL route as directed - follow package instructions; 1 packet. - Medication Reconciliation Form, Thank You Letter, Antibiotic Education, Prescription Opioid Use form. - Follow up: Emergency Department; When: As needed; Reason: Worsening of condition. Follow up: Private Physician; When: 2 - 3 days; Reason: Recheck today's complaints, Continuance of care, Re-evaluation by your physician. - Problem is new. - Symptoms have improved. Signatures: Dispatcher [employer] EDMS Rei Noguera MD MD cha Calderon, Audri, RN RN aa5 Luc Portillo SENIOR BOOKKEEPER SENIOR BOOKKEEPER pm1 Esther Nice RN RN Candido Weaver RN RN bp Corrections: (The following items were deleted from the chart) 13:52 13:16 05/08/2020 13:16 Discharged to Home. Impression: Unspecified abdominal pain - bp ulcerative colitis flare up. Condition is Stable. Forms are Medication Reconciliation Form, Thank You Letter, Antibiotic Education, Prescription Opioid Use. Follow up: Emergency Department; When: As needed; Reason: Worsening of condition. Follow up: Private Physician; When: 2 - 3 days; Reason: Recheck today's complaints, Continuance of care, Re-evaluation by your physician. Problem is new. Symptoms have improved. pm1
[2020-05-08] MEDS ORDERED: MORPHINE 4 MG/ML SYR ONE (13:37)
[2020-05-08 14:01] VITALS: BP 128/98; TEMP 98; O2SAT 98
== END 2020-05-08 13:52 | disposition home or self-care (01) ==
LOC: ER 11:50
DX: K51.90 Ulcerative colitis, unspecified, without complications (principal); Z88.5 Allergy status to narcotic agent
CPT/HCPCS: 96361; 85025; 80048; 36415; 80076; 83690; 96375; 96374; 99284; J3010; J7030; J2930; J2405

== ENCOUNTER 2020-05-22 13:08 | Emergency (ER) | payer BC ==
--- OUTSIDE RECORDS SUMMARY | 2020-05-22 13:10 | XMS REPORT | Continuity of Care Document ---
:1985 Author Organization [facility] t Address [address] [place] [address] Dr. Webb [address] [place] [id number] Care Team Providers Name Role Phone Unavailable Unavailable Unavailable Problems This patient has no known problems. Allergies, Adverse Reactions, Alerts This patient has no known allergies or adverse reactions. Medications This patient has no known medications. Procedures This patient has no known procedures. Results This patient has no known results.
[2020-05-22 13:55] LABS: Absolute Lymphocytes (CBC) 1.6 K/uL (0.7-4.9); Basophils % 0.6 % (0-1.3); MPV 8.9 fL (7.6-11.3); RBC Red Blood Cell Count 5.15 M/uL (4.33-5.43)
[2020-05-22 14:04] LABS: Bilirubin Direct 0.2 mg/dL (0-0.2); Bilirubin Total 0.9 mg/dL (0.2-1.0); Potassium 3.7 mmol/L (3.5-5.1); Protein, Total 8.4 g/dL (6.4-8.2)
[2020-05-22] MEDS ORDERED: ONDANSETRON 4 MG/2 ML VIAL ONE (14:24)
[2020-05-22] MEDS ORDERED: NA CHLORIDE 0.9% 1,000 ML ONE (14:24)
[2020-05-22] MEDS ORDERED: MORPHINE 4 MG/ML SYR ONE ×2 (14:24→16:10)
--- NOTE | 2020-05-22 15:51 | ER ---
Nurse's Notes [facility] Name: Slava Biswas Age: 34 yrs Sex: Male : 1985 Arrival Date: 05/22/2020 Time: 13:09 Bed 13 Private MD: Cecilio Merida Diagnosis: Ulcerative colitis;Generalized abdominal pain Presentation: 05/22 13:20 Chief complaint: Patient states: RLQ pain and diarrhea that began last night. Pt states aa5 "I am having an ulcerative colitis flare up". 13:20 Coronavirus screen: Client denies travel out of the [place] in the last 14 days. At this aa5 time, the client does not indicate any symptoms associated with coronavirus-19. Ebola Screen: Patient negative for fever greater than or equal to 101.5 degrees Fahrenheit, and additional compatible Ebola Virus Disease symptoms. Initial Sepsis Screen: Does the patient meet any 2 criteria? No. Patient's initial sepsis screen is negative. Does the patient have a suspected source of infection? No. Patient's initial sepsis screen is negative. Risk Assessment: Do you want to hurt yourself or someone else? Patient reports no desire to harm self or others. Onset of symptoms was May 2020. 13:20 Acuity: TRACEE 3 aa5 13:20 Method Of Arrival: Ambulatory aa5 Historical: - Allergies: 13:27 Codeine (Hives, rash); aa5 - PMHx: 13:27 Colitis; GERD; ulcertive colitis; aa5 - PSHx: 13:27 Hernia repair; Tonsillectomy; rotator cuff repair; deviated septum; aa5 - Immunization history:: Adult Immunizations up to date. - Social history:: Smoking status: Patient denies any tobacco usage or history of. Screenin:36 Abuse screen: Denies threats or abuse. Denies injuries from another. Nutritional ks7 screening: No deficits noted. Tuberculosis screening: No symptoms or risk factors identified. Fall Risk None identified. Assessment: 13:36 General: Appears in no apparent distress. uncomfortable, Behavior is calm, cooperative. ks7 Pain: Complains of pain in abdomenRLQ pain Pain currently is 7 out of 10 on a pain scale. Quality of pain is described as crampy, sharp, Pain began 4 hours ago. Is continuous. GI: Abd is soft Abdomen is tender to palpation in right lower quadrant Reports lower abdominal pain, diarrhea. Vital Signs: 14:20 BP 130 / 96; Pulse 90; Resp 18; Pulse Ox 100% ; Pain 7/10; ks7 15:00 BP 124 / 82; Pulse 84; Resp 18; Temp 99.1(O); Pulse Ox 98% on R/A; Pain 4/10; ks7 15:29 Pulse Ox 99% ; Pain 4/10; ks7 15:30 Pulse Ox 99% ; Pain 4/10; ks7 16:06 BP 132 / 89; Pulse 89; Resp 18; Temp 98.7(O); Pulse Ox 100% ; Pain 2/10; ks7 ED Course: 13:09 Patient arrived in ED. ag5 13:11 Cecilio Merida MD is Private Physician. ag5 13:20 Arm band placed on Patient placed in an exam room, on a stretcher. aa5 13:22 Luis Carlos Thomas PA is PHCP. jr8 13:22 Bacilio Newton MD is Attending Physician. jr8 13:27 Triage completed. aa5 13:27 Marivel Cuenca, HARSHA is Primary Nurse. ks7 13:36 Patient has correct armband on for positive identification. Bed in low position. Call ks7 light in reach. Side rails up X2. 13:36 No provider procedures requiring assistance completed. ks7 13:43 Inserted saline lock: 20 gauge in right antecubital area, using aseptic technique. dh4 Blood collected. 13:55 Nurse Practitioner and/or Physician Senior Front End Web Developer to see patient. PA at bedside assessing ks7 pt. 13:59 Basic Metabolic Panel Sent. ks7 13:59 CBC with Diff Sent. ks7 13:59 Hepatic Function Sent. ks7 13:59 Lipase Sent. ks7 15:29 pt ambulated to bathroom steady on feet. ks7 15:50 Pastor Marquez MD is Referral Physician. jr8 16:07 IV discontinued, intact, bleeding controlled, No redness/swelling at site. Pressure ks7 dressing applied. Administered Medications: Discontinued: NS 0.9% 1000 ml IV at 1000 ml once 14:15 Drug: NS 0.9% 1000 ml Route: IV; Rate: 1000 ml; Site: right antecubital; ks7 14:17 Drug: Zofran (Ondansetron) 4 mg Route: IVP; Site: right antecubital; ks7 15:29 Follow up: Pulse Ox 99% ; Pain 4/10 Adult; nausea resolved ks7 15:30 Follow up: Pulse Ox 99% ; Pain 4/10 Adult; pain starting to come back ks7 14:18 Drug: morphine 4 mg Route: IVP; Site: right antecubital; ks7 16:04 Drug: morphine 4 mg Route: IVP; Site: right antecubital; ks7 Intake: Outcome: 15:50 Discharge ordered by . hilario 16:07 Discharged to home ambulatory. ks7 16:07 Condition: good 16:07 Discharge instructions given to patient, Instructed on discharge instructions, follow up and referral plans. medication usage, Demonstrated understanding of instructions, follow-up care, medications, Prescriptions given X 3. 16:08 Patient left the ED. ks7 Signatures: Marzena Rust, RN RN aa5 Luis Carlos Thomas PA PA jr8 Rosita Hair Donald 4 Marivel Cuenca RN RN ks7 Corrections: (The following items were deleted from the chart) 15:41 15:39 BP 124 / 82; Pulse 84bpm; Resp 18bpm; Pulse Ox 98% RA; Temp 99.1F Oral; Pain ks7 10; ks7
--- NOTE | 2020-05-22 15:51 | EDPHYS ---
Physician Documentation [facility] Name: Slava Biswas Age: 34 yrs Sex: Male : 1985 Arrival Date: 05/22/2020 Time: 13:09 Bed 13 Private MD: Cecilio Merida ED Physician Bacilio Newton HPI: 05/22 14:43 This 34 yrs old Male presents to ER via Ambulatory with complaints of jr8 Ulcerative Colitis Flare Up, Rt Side Pain. 14:43 The patient presents with abdominal pain. Onset: The symptoms/episode began/occurred jr8 gradually, 2 day(s) ago, and became worse. The symptoms do not radiate. Associated signs and symptoms: Pertinent positives: diarrhea. The symptoms are described as crampy, sharp. Modifying factors: The symptoms are alleviated by nothing, the symptoms are aggravated by food. Severity of pain: At its worst the pain was moderate in the emergency department the pain is unchanged. The patient has experienced similar episodes in the past, multiple times. The patient has not recently seen a physician. Patient with history of UC. Having another flare up. Last visit was 05/08. Stated that he had been ok until now. Unable to get onto biologic's because of COVID . Historical: - Allergies: 13:27 Codeine (Hives, rash); aa5 - PMHx: 13:27 Colitis; GERD; ulcertive colitis; aa5 - PSHx: 13:27 Hernia repair; Tonsillectomy; rotator cuff repair; deviated septum; aa5 - Immunization history:: Adult Immunizations up to date. - Social history:: Smoking status: Patient denies any tobacco usage or history of. ROS: 14:43 Eyes: Negative for injury, pain, redness, and discharge, ENT: Negative for injury, jr8 pain, and discharge, Neck: Negative for injury, pain, and swelling, Cardiovascular: Negative for chest pain, palpitations, and edema, Respiratory: Negative for shortness of breath, cough, wheezing, and pleuritic chest pain, Back: Negative for injury and pain, MS/Extremity: Negative for injury and deformity, Skin: Negative for injury, rash, and discoloration, Neuro: Negative for headache, weakness, numbness, tingling, and seizure. 14:43 Abdomen/GI: Positive for abdominal pain, diarrhea. Exam: 14:43 Eyes: Pupils equal round and reactive to light, extra-ocular motions intact. Lids and jr8 lashes normal. Conjunctiva and sclera are non-icteric and not injected. Cornea within normal limits. Periorbital areas with no swelling, redness, or edema. ENT: Nares patent. No nasal discharge, no septal abnormalities noted. Tympanic membranes are normal and external auditory canals are clear. Oropharynx with no redness, swelling, or masses, exudates, or evidence of obstruction, uvula midline. Mucous membranes moist. Neck: Trachea midline, no thyromegaly or masses palpated, and no cervical lymphadenopathy. Supple, full range of motion without nuchal rigidity, or vertebral point tenderness. No Meningismus. Cardiovascular: Regular rate and rhythm with a normal S1 and S2. No gallops, murmurs, or rubs. Normal PMI, no JVD. No pulse deficits. Respiratory: Lungs have equal breath sounds bilaterally, clear to auscultation and percussion. No rales, rhonchi or wheezes noted. No increased work of breathing, no retractions or nasal flaring. Back: No spinal tenderness. No costovertebral tenderness. Full range of motion. Skin: Warm, dry with normal turgor. Normal color with no rashes, no lesions, and no evidence of cellulitis. MS/ Extremity: Pulses equal, no cyanosis. Neurovascular intact. Full, normal range of motion. Neuro: Awake and alert, GCS 15, oriented to person, place, time, and situation. Cranial nerves II-XII grossly intact. Motor strength 5/5 in all extremities. Sensory grossly intact. Cerebellar exam normal. Normal gait. 14:43 Abdomen/GI: Inspection: obese Bowel sounds: active, all quadrants, Palpation: soft, in all quadrants, mild abdominal tenderness, in the right lower quadrant, mass, is not appreciated, rebound tenderness, is not appreciated, voluntary guarding, is not appreciated, involuntary guarding, is not appreciated, no appreciated organomegaly, Indicators: McBurney's point is not tender, Titus's sign is negative, Rovsing's sign is negative, Liver: tenderness, is not appreciated. Vital Signs: 14:20 BP 130 / 96; Pulse 90; Resp 18; Pulse Ox 100% ; Pain 7/10; ks7 15:00 BP 124 / 82; Pulse 84; Resp 18; Temp 99.1(O); Pulse Ox 98% on R/A; Pain 4/10; ks7 15:29 Pulse Ox 99% ; Pain 4/10; ks7 15:30 Pulse Ox 99% ; Pain 4/10; ks7 16:06 BP 132 / 89; Pulse 89; Resp 18; Temp 98.7(O); Pulse Ox 100% ; Pain 2/10; ks7 MDM: 13:24 Patient medically screened. jr8 15:50 Data reviewed: vital signs, nurses notes, lab test result(s), and as a result, I will jr8 discharge patient. Data interpreted: Pulse oximetry: on room air is 99 %. Interpretation: normal. Counseling: I had a detailed discussion with the patient and/or guardian regarding: the historical points, exam findings, and any diagnostic results supporting the discharge/admit diagnosis, lab results, the need for outpatient follow up, a explosive specialist, to return to the emergency department if symptoms worsen or persist or if there are any questions or concerns that arise at home. Response to treatment: the patient's symptoms have markedly improved after treatment, patient is well hydrated. 17:18 ED course: Talked to pharmacy about patient. Patient has had multiple refills of pain 8 medication. Tramadol May 08, Tylenol #3 May 10, and Tramadol again on May 12 # 28. Appears he is going from dentist to ER for pain medication. Will not allow patient to fill pain meds . 05/22 13:24 Order name: Basic Metabolic Panel [facility] 05/22 13:24 Order name: CBC with Diff 05/22 13:24 Order name: Hepatic Function [facility] 05/22 13:24 Order name: Lipase 05/22 14:04 Order name: Basic Metabolic Panel; Complete Time: 14:45 EDMS 05/22 14:04 Order name: Liver (Hepatic) Function; Complete Time: 14:45 EDMS 05/22 13:24 Order name: IV Saline Lock; Complete Time: 13:59 [facility] 05/22 13:24 Order name: Labs collected and sent; Complete Time: 13:59 [facility] 05/22 14:04 Order name: Lipase; Complete Time: 14:45 EDMS 05/22 14:36 Order name: CBC with Automated Diff; Complete Time: 14:45 EDMS Administered Medications: Discontinued: NS 0.9% 1000 ml IV at 1000 ml once 14:15 Drug: NS 0.9% 1000 ml Route: IV; Rate: 1000 ml; Site: right antecubital; ks7 14:17 Drug: Zofran (Ondansetron) 4 mg Route: IVP; Site: right antecubital; ks7 15:29 Follow up: Pulse Ox 99% ; Pain 4/10 Adult; nausea resolved ks7 15:30 Follow up: Pulse Ox 99% ; Pain 4/10 Adult; pain starting to come back ks7 14:18 Drug: morphine 4 mg Route: IVP; Site: right antecubital; ks7 16:04 Drug: morphine 4 mg Route: IVP; Site: right antecubital; ks7 Disposition: 16:28 Co-signature as Attending Physician, Bacilio Newton MD. rn Disposition: 05/22/20 15:50 Discharged to Home. Impression: Ulcerative colitis, Generalized abdominal pain. - Condition is Stable. - Discharge Instructions: Abdominal Pain, Adult. - Prescriptions for Bentyl 20 mg Oral Tablet - take 1 tablet by ORAL route every 6 hours As needed; 20 tablet. Ultram 50 mg Oral Tablet - take 1 tablet by ORAL route every 6 hours As needed; 15 tablet. Zofran 4 mg Oral Tablet - take 1 tablet by ORAL route every 12 hours As needed; 20 tablet. Medrol (Thee) 4 mg Oral Tablets, Dose Pack - take 1 tablet by ORAL route as directed - follow package instructions; 1 packet. - Medication Reconciliation Form, Thank You Letter, Antibiotic Education, Prescription Opioid Use form. - Follow up: Pastor Marquez MD; When: 2 - 3 days; Reason: Recheck today's complaints, Continuance of care, Re-evaluation by your physician. - Problem is new. - Symptoms have improved. Signatures: Dispatcher [employer] EDMS Bacilio Newton MD MD rn Calderon, Audri RN RN aa5 Luis Carlos Thomas PA PA jr8 Marivel Cuenca RN RN ks7 Corrections: (The following items were deleted from the chart) 16:08 15:50 05/22/2020 15:50 Discharged to Home. Impression: Ulcerative colitis; Generalized ks7 abdominal pain. Condition is Stable. Forms are Medication Reconciliation Form, Thank You Letter, Antibiotic Education, Prescription Opioid Use. Follow up: Pastor Marquez; When: 2 - 3 days; Reason: Recheck today's complaints, Continuance of care, Re-evaluation by your physician. Problem is new. Symptoms have improved. jr8
[2020-05-22 16:19] VITALS: BP 132/89; TEMP 98.7; O2SAT 100
== END 2020-05-22 16:08 | disposition home or self-care (01) ==
LOC: ER 13:08
DX: K51.90 Ulcerative colitis, unspecified, without complications (principal); Z88.5 Allergy status to narcotic agent
CPT/HCPCS: 85025; 80048; 36415; 80076; 83690; 96375; 96374; 99284; J7030; J2405

== ENCOUNTER 2020-06-25 15:32 | Emergency (ER) | payer BC ==
--- OUTSIDE RECORDS SUMMARY | 2020-06-25 15:34 | XMS REPORT | Continuity of Care Document ---
:1985 Author Organization [facility] t Address [address] [place] [address] Dr. Webb [address] [place] [id number] Care Team Providers Name Role Phone Unavailable Unavailable Unavailable Problems This patient has no known problems. Allergies, Adverse Reactions, Alerts This patient has no known allergies or adverse reactions. Medications This patient has no known medications. Procedures This patient has no known procedures. Results This patient has no known results.
[2020-06-25] MEDS ORDERED: LIDOCAINE 1% MPF 5 ML VIAL ONE (15:57)
--- NOTE | 2020-06-25 16:11 | EDPHYS ---
Physician Documentation [facility] Name: Slava Biswas Age: 35 yrs Sex: Male : 1985 Arrival Date: 06/25/2020 Time: 15:33 Bed 13 Private MD: ED Physician Mary Ervin HPI: 06/25 15:47 This 35 yrs old Male presents to ER via Ambulatory with complaints of kb Laceration To Hand. 15:47 The patient has a laceration related to: cutting tag off of new hunting bag and kb accidentally cut his hand occurred at home, and there are no complicating factors. The injury was accidental. The laceration(s) is(are) located on the dorsum of left hand. Onset: The symptoms/episode began/occurred just prior to arrival. Associated signs and symptoms: The patient has no apparent associated signs or symptoms. The patient has not experienced similar symptoms in the past. The patient has not recently seen a physician. Historical: - Allergies: 15:44 Codeine (Hives, rash); jd3 - Home Meds: 15:44 Prilosec 40 mg Oral cpDR 1 cap 2 times per day [Active]; Probiotic Oral daily [Active]; jd3 - PMHx: 15:44 Colitis; GERD; ulcertive colitis; jd3 - PSHx: 15:44 Hernia repair; Tonsillectomy; rotator cuff repair; deviated septum; jd3 - Immunization history:: Adult Immunizations up to date, Last tetanus immunization: up to date < 5 years ago. - Social history:: Smoking status: Patient denies any tobacco usage or history of. ROS: 15:45 Constitutional: Negative for fever, chills, and weight loss, Cardiovascular: Negative kb for chest pain, palpitations, and edema, Respiratory: Negative for shortness of breath, cough, wheezing, and pleuritic chest pain, Abdomen/GI: Negative for abdominal pain, nausea, vomiting, diarrhea, and constipation, Back: Negative for injury and pain, MS/Extremity: Negative for injury and deformity, Neuro: Negative for headache, weakness, numbness, tingling, and seizure. 15:45 Skin: Positive for laceration(s), of the dorsum of left hand. Exam: 15:46 Constitutional: This is a well developed, well nourished patient who is awake, alert, kb and in no acute distress. Head/Face: Normocephalic, atraumatic. Chest/axilla: Normal chest wall appearance and motion. Nontender with no deformity. No lesions are appreciated. Cardiovascular: Regular rate and rhythm with a normal S1 and S2. No gallops, murmurs, or rubs. Normal PMI, no JVD. No pulse deficits. Respiratory: Lungs have equal breath sounds bilaterally, clear to auscultation and percussion. No rales, rhonchi or wheezes noted. No increased work of breathing, no retractions or nasal flaring. Abdomen/GI: Soft, non-tender, with normal bowel sounds. No distension or tympany. No guarding or rebound. No evidence of tenderness throughout. MS/ Extremity: Pulses equal, no cyanosis. Neurovascular intact. Full, normal range of motion. Neuro: Awake and alert, GCS 15, oriented to person, place, time, and situation. Cranial nerves II-XII grossly intact. Motor strength 5/5 in all extremities. Sensory grossly intact. Cerebellar exam normal. Normal gait. 15:46 Skin: injury, laceration(s), the wound is approximately 2.5 cm(s), of the dorsum of left hand, that can be described as clean, no foreign body, linear, without bleeding. Vital Signs: 15:44 BP 155 / 108; Pulse 128; Resp 19 S; Temp 99.1(O); Pulse Ox 98% on R/A; Weight 117.93 kg jd3 (R); Height 5 ft. 10 in. (177.80 cm) (R); Pain 5/10; 16:22 BP 131 / 89; Pulse 115; Resp 18; Pulse Ox 99% ; Pain 0/10; ll1 15:44 Body Mass Index 37.31 (117.93 kg, 177.80 cm) jd3 16:22 States he "must've been a little anxious". ADAM Grande informed of HR. Still ll1 cleared for discharge Laceration: 16:07 Wound Repair of 2.5cm ( 1.0in ) subcutaneous laceration to dorsum of left hand. Linear kb shaped.. Distal neuro/vascular/tendon intact. Anesthesia: Wound infiltrated with 2 mls of 1% lidocaine. Wound prep: Extensive cleansing with hibiclenz by me, Wound irrigation with saline by me, Wound explored moderately. Skin closed with 4 5-0 Prolene using simple sutures and sterile technique. Dressed with Neosporin, bandaid. Patient tolerated well. MDM: 15:37 Patient medically screened. kb 15:47 Data reviewed: vital signs, nurses notes. Data interpreted: Pulse oximetry: on room air kb is 98 %. Interpretation: normal. Counseling: I had a detailed discussion with the patient and/or guardian regarding: the historical points, exam findings, and any diagnostic results supporting the discharge/admit diagnosis, the need for outpatient follow up, a family practitioner, to return to the emergency department if symptoms worsen or persist or if there are any questions or concerns that arise at home. 16:07 ED course: Wound explored. Wound is superficial, able to see the bottom (depth) of kb laceration, no tendon involvement noted. Pt reports pain on flexion of second digit. Educated to follow up with Dr Castro if symptoms persist. Verbal understanding received. . 06/25 15:40 Order name: Prolene, Sutures; Complete Time: 15:50 kb 06/25 15:40 Order name: Dressing - Wound; Complete Time: 15:50 kb 06/25 15:40 Order name: Gloves, Sterile; Complete Time: 15:50 kb 06/25 15:40 Order name: Setup Suture Tray; Complete Time: 15:50 kb Administered Medications: 15:52 Drug: Lidocaine (1 %) 1 vials {Note: by ADAM Grande.} Volume: 5 ml; Route: ll1 Infiltration; 16:25 Follow up: Response: No adverse reaction; RASS: Alert and Calm (0) ll1 Disposition: 06/25/20 16:10 Discharged to Home. Impression: Laceration without foreign body of left hand. - Condition is Stable. - Discharge Instructions: Laceration Care, Adult, [id number]. - Prescriptions for Tramadol 50 mg Oral Tablet - take 1 tablet by ORAL route every 8 hours as needed; 5 tablet. - Medication Reconciliation Form, Thank You Letter, Antibiotic Education, Prescription Opioid Use form. - Follow up: Private Physician; When: 2 - 3 days; Reason: Recheck today's complaints, Continuance of care, Re-evaluation by your physician. Follow up: Emergency Department; When: As needed; Reason: Worsening of condition. Follow up: Rafi Castro MD; When: 2 - 3 days; Reason: Recheck today's complaints. - Notes: Keep clean and dry. Follow up with Dr Castro as needed Have sutures removed in 10 days HAVE FUN HUNTING AND BE SAFE! Signatures: Veronica Holcomb, WASH OIL PUMP OPERATOR HELPER-C WASH OIL PUMP OPERATOR HELPER-Ckb Nicholas Pugh RN RN jd3 Soraya Tellez RN RN ll1 Corrections: (The following items were deleted from the chart) 15:49 15:43 Immunization history: Adult Immunizations up to date, jd3 jd3 16:10 16:07 ED course: Wound explored. Wound is superficial, able to see the bottom (depth) kb of laceration, no tendon involvement noted. . kb 16:12 16:10 06/25/2020 16:10 Discharged to Home. Impression: Laceration without foreign body kb of left hand. Condition is Stable. Forms are Medication Reconciliation Form, Thank You Letter, Antibiotic Education, Prescription Opioid Use. Follow up: Private Physician; When: 2 - 3 days; Reason: Recheck today's complaints, Continuance of care, Re-evaluation by your physician. Follow up: Emergency Department; When: As needed; Reason: Worsening of condition. kb 16:22 16:12 06/25/2020 16:10 Discharged to Home. Impression: Laceration without foreign body ll1 of left hand. Condition is Stable. Discharge Instructions: Laceration Care, Adult, [id number]. Prescriptions for Tramadol 50 mg Oral Tablet - take 1 tablet by ORAL route every 8 hours as needed; 5 tablet. and Forms are Medication Reconciliation Form, Thank You Letter, Antibiotic Education, Prescription Opioid Use. Follow up: Private Physician; When: 2 - 3 days; Reason: Recheck today's complaints, Continuance of care, Re-evaluation by your physician. Follow up: Emergency Department; When: As needed; Reason: Worsening of condition. Follow up: Rafi Castro; When: 2 - 3 days; Reason: Recheck today's complaints. kb
--- NOTE | 2020-06-25 16:11 | ER ---
Nurse's Notes [facility] Name: Slava Biswas Age: 35 yrs Sex: Male : 1985 Arrival Date: 06/25/2020 Time: 15:33 Bed 13 Private MD: Diagnosis: Laceration without foreign body of left hand Presentation: 06/25 15:42 Chief complaint: Patient states: "I was cutting my tags off of a new hunting bag and I jd3 wasn't paying attention and came back and got my hand.". Coronavirus screen: At this time, the client does not indicate any symptoms associated with coronavirus-19. Ebola Screen: Patient negative for fever greater than or equal to 101.5 degrees Fahrenheit, and additional compatible Ebola Virus Disease symptoms. Complicating Factors: There are no complicating factors for this patient. Initial Sepsis Screen: Does the patient meet any 2 criteria? No. Patient's initial sepsis screen is negative. Does the patient have a suspected source of infection? No. Patient's initial sepsis screen is negative. Risk Assessment: Do you want to hurt yourself or someone else? Patient reports no desire to harm self or others. Onset of symptoms was June 25, 2020. 15:42 Method Of Arrival: Ambulatory jd3 15:42 Acuity: TRACEE 3 jd3 Historical: - Allergies: 15:44 Codeine (Hives, rash); jd3 - Home Meds: 15:44 Prilosec 40 mg Oral cpDR 1 cap 2 times per day [Active]; Probiotic Oral daily [Active]; jd3 - PMHx: 15:44 Colitis; GERD; ulcertive colitis; jd3 - PSHx: 15:44 Hernia repair; Tonsillectomy; rotator cuff repair; deviated septum; jd3 - Immunization history:: Adult Immunizations up to date, Last tetanus immunization: up to date < 5 years ago. - Social history:: Smoking status: Patient denies any tobacco usage or history of. Screenin:52 Abuse screen: Denies threats or abuse. Nutritional screening: No deficits noted. ll1 Tuberculosis screening: No symptoms or risk factors identified. Fall Risk None identified. Total Brennan Fall Scale indicates No Risk (0-24 pts). Assessment: 15:50 General: Appears comfortable, Behavior is calm, cooperative. Pain: Denies pain. Derm: ll1 Reports laceration top of left hand. <3cm, bleeding controlled. Musculoskeletal: Circulation, motion, and sensation intact. Capillary refill < 3 seconds, Reports pain in left hand. Injury Description: Laceration. 16:23 Reassessment: No changes from previously documented assessment. Patient and/or family ll1 updated on plan of care and expected duration. Pain level reassessed. Patient is alert, oriented x 3, equal unlabored respirations, skin warm/dry/pink. 16:25 Injury Description: Laceration is clean. ll1 Vital Signs: 15:44 BP 155 / 108; Pulse 128; Resp 19 S; Temp 99.1(O); Pulse Ox 98% on R/A; Weight 117.93 kg jd3 (R); Height 5 ft. 10 in. (177.80 cm) (R); Pain 5/10; 16:22 BP 131 / 89; Pulse 115; Resp 18; Pulse Ox 99% ; Pain 0/10; ll1 15:44 Body Mass Index 37.31 (117.93 kg, 177.80 cm) jd3 16:22 States he "must've been a little anxious". ADAM Grande informed of HR. Still ll1 cleared for discharge ED Course: 15:33 Patient arrived in ED. ds1 15:33 Veronica Holcomb FNP-C [facility] kb 15:33 Mary Ervin MD is Attending Physician. kb 15:35 Soraya Tellez, HARSHA is Primary Nurse. ll1 15:43 Triage completed. jd3 15:45 Arm band placed on. jd3 15:52 Patient has correct armband on for positive identification. Bed in low position. Call ll1 light in reach. Side rails up X 1. Cardiac monitoring not applicable on this patient. 16:12 Rafi Castro MD is Referral Physician. kb 16:24 No provider procedures requiring assistance completed. Patient did not have IV access ll1 during this emergency room visit. Dressings: non-adherent dressing x 1 left hand Tube gauze X 1; left hand. Administered Medications: 15:52 Drug: Lidocaine (1 %) 1 vials {Note: by ADAM Grande.} Volume: 5 ml; Route: ll1 Infiltration; 16:25 Follow up: Response: No adverse reaction; RASS: Alert and Calm (0) ll1 Outcome: 16:10 Discharge ordered by MD. deshpande 16:22 Patient left the ED. ll1 16:24 Discharged to home ambulatory. ll1 16:24 Condition: stable 16:24 Discharge instructions given to patient, Instructed on discharge instructions, follow up and referral plans. medication usage, wound care, Demonstrated understanding of instructions, follow-up care, medications, wound care, Prescriptions given X 1. Signatures: Veornica Holcomb, VAMP THROATER-C VAMP THROATER-Caitlin Hernandez ds1 Nicholas Pugh RN RN Soraya Bray RN RN ll1 Corrections: (The following items were deleted from the chart) 15:49 15:43 Immunization history: Adult Immunizations up to date, corinne sun
[2020-06-25 16:37] VITALS: BP 155/108; TEMP 99.1; O2SAT 98
== END 2020-06-25 16:22 | disposition home or self-care (01) ==
LOC: ER 15:32
PROC: 0JQK0ZZ Repair Left Hand Subcutaneous Tissue and Fascia, Open Approach (ICD-10-PCS; principal; 2020-06-25)
DX: S61.412A Laceration without foreign body of left hand, initial encounter (principal); W26.0XXA Contact with knife, initial encounter; Y93.89 Activity, other specified; Y92.009 Unspecified place in unspecified non-institutional (private) residence as the place of occurrence of the external cause; Z88.5 Allergy status to narcotic agent
CPT/HCPCS: 99283

== ENCOUNTER 2020-07-07 12:48 | Emergency (ER) | payer BC ==
--- OUTSIDE RECORDS SUMMARY | 2020-07-07 12:50 | XMS REPORT | Continuity of Care Document ---
:1985 Author Organization [facility] t Address [address] [place] [address] Dr. Webb [address] [place] [id number] Care Team Providers Name Role Phone Unavailable Unavailable Unavailable Problems This patient has no known problems. Allergies, Adverse Reactions, Alerts This patient has no known allergies or adverse reactions. Medications This patient has no known medications. Procedures This patient has no known procedures. Results This patient has no known results.
[2020-07-07 13:56] LABS: Absolute Lymphocytes (CBC) 1.5 K/uL (0.7-4.9); Basophils % 0.3 % (0-1.3); Hematocrit 45.8 % (39.6-49.0); Lymphocytes % 14.3 % (15.3-44.8); MPV 8.5 fL (7.6-11.3); RBC Red Blood Cell Count 5.11 M/uL (4.33-5.43)
[2020-07-07 13:59] LABS: Protime INR 1.09
--- NOTE | 2020-07-07 14:10 | RAD REPORT ---
EXAM DESCRIPTION: RAD - Chest Single View - 07/07/2020 1:59 pm CLINICAL HISTORY: abdominal pain Chest pain. COMPARISON: Abdomen Acute Series dated 05/26/2019; Abdomen 1 View (KUB) dated 10/22/2016; Chest Single View dated 04/24/2016; CHEST SINGLE VIEW dated 08/22/2015 FINDINGS: Portable technique limits examination quality. The lungs are grossly clear. The heart is normal in size. No displaced fractures. IMPRESSION: No acute intrathoracic process suspected.
[2020-07-07 14:20] LABS: ALT/SGPT 36 U/L (12-78); AST/SGOT 20 U/L (15-37); Alkaline Phosphatase 100 U/L (45-117); Amylase 44 U/L (25-115); BUN Blood Urea Nitrogen 9 mg/dL (7-18); Bicarbonate 25 mmol/L (21-32); Bilirubin Direct 0.2 mg/dL (0-0.2); Bilirubin Total 0.8 mg/dL (0.2-1.0); CKMB Creatine Kinase MB < 1.0 ng/mL (0.3-3.6); Creatine Phosphokinase 82 U/L (39-308); Glucose Level 99 mg/dL (74-106); Lipase 102 U/L (73-393); Potassium 3.8 mmol/L (3.5-5.1); Protein, Total 8.2 g/dL (6.4-8.2); Sodium Level 142 mmol/L (136-145); Troponin (Emerg Dept Use Only) < 0.02 ng/mL (0.0-0.045)
[2020-07-07] MEDS ORDERED: ONDANSETRON 4 MG/2 ML VIAL ONE (14:40)
[2020-07-07] MEDS ORDERED: METHYLPREDNISOLONE 125 MG INJ ONE (14:40)
[2020-07-07] MEDS ORDERED: MORPHINE 4 MG/ML SYR ONE ×2 (14:40→15:32)
[2020-07-07] MEDS ORDERED: Levofloxacin500mg IV 500 MG/100 ML BAG IV ONE (14:41)
[2020-07-07] MEDS ORDERED: NA CHLORIDE 0.9% 2,000 ML ONE (14:41)
[2020-07-07 15:44] LABS: Urine Bacteria <20 /HPF (NONE SEEN); Urine Culture Reflex Order NOT NEEDED; Urine Mucus 1+ /HPF (NONE SEEN); Urine RBC <5 /HPF (NONE SEEN)
[2020-07-07 15:46] LABS: Urine Blood NEGATIVE (NEG); Urine Glucose NEGATIVE (NEG); Urine Protein NEGATIVE (NEG)
--- NOTE | 2020-07-07 15:49 | ER ---
Nurse's Notes [facility] Name: Slava Biswas Age: 35 yrs Sex: Male : 1985 Arrival Date: 07/07/2020 Time: 12:49 Bed 17 Private MD: Cecilio Merida Diagnosis: Abdominal and pelvic pain;Other ulcerative colitis Presentation: 07/07 13:22 Chief complaint: Patient states: Flare of my Ulcerative Colitis since 0230 today. ca1 Nausea, diarrhea and RLQ pain. Coronavirus screen: Client denies travel out of the [place] in the last 14 days. At this time, the client does not indicate any symptoms associated with coronavirus-19. Ebola Screen: Patient negative for fever greater than or equal to 101.5 degrees Fahrenheit, and additional compatible Ebola Virus Disease symptoms Patient denies exposure to infectious person. Patient denies travel to an Ebola-affected area in the 21 days before illness onset. No symptoms or risks identified at this time. Risk Assessment: Do you want to hurt yourself or someone else? Patient reports no desire to harm self or others. Onset of symptoms was July 07, 2020. 13:22 Method Of Arrival: Ambulatory ca1 13:22 Acuity: TRACEE 2 ca1 13:22 Initial Sepsis Screen: Does the patient meet any 2 criteria? Temp <36.0*C (96.8*F)) or ca1 > 38.3*C (100.9*F). HR > 90 bpm. Yes Does the patient have a suspected source of infection? Yes: Acute abdominal pain. Triage Assessment: 13:30 General: Appears distressed, uncomfortable, Behavior is cooperative, appropriate for bp age, anxious. Pain: Complains of pain in abdomen. EENT: No deficits noted. Neuro: No deficits noted. Cardiovascular: No deficits noted. Respiratory: No deficits noted. GI: No signs and/or symptoms were reported involving the gastrointestinal system. : No signs and/or symptoms were reported regarding the genitourinary system. Derm: No deficits noted. Musculoskeletal: No deficits noted. Historical: - Allergies: 13:25 Codeine (Hives, rash); ca1 - Home Meds: 13:25 Prilosec 40 mg Oral cpDR 1 cap 2 times per day [Active]; Probiotic Oral daily [Active]; ca1 - PMHx: 13:25 Colitis; GERD; ulcertive colitis; ca1 - PSHx: 13:25 Hernia repair; Tonsillectomy; rotator cuff repair; deviated septum; ca1 - Immunization history:: Adult Immunizations up to date. - Social history:: Smoking status: Patient denies any tobacco usage or history of. Screenin:45 Abuse screen: Denies threats or abuse. Denies injuries from another. Nutritional bp screening: No deficits noted. Tuberculosis screening: No symptoms or risk factors identified. Fall Risk None identified. Assessment: 13:30 General: SEE TRIAGE NOTE. bp 14:30 Reassessment: ALL CURRENT ORDERS COMPLETE, INITIAL LACTATE NEGATIVE. bp 16:32 Reassessment: PT D/C HOME AMBULATORY, DX WITH UC FLAIR. bp Vital Signs: 13:22 BP 147 / 104; Pulse 117; Resp 16 S; Temp 100.6(O); Pulse Ox 100% on R/A; Weight 117.93 ca1 kg (R); Height 5 ft. 10 in. (177.80 cm) (R); Pain 8/10; 14:30 BP 140 / 105; Pulse 98; Resp 16; Pulse Ox 100% ; bp 16:30 BP 137 / 85; Pulse 87; Resp 17; Pulse Ox 100% ; bp 13:22 Body Mass Index 37.30 (117.93 kg, 177.80 cm) ca1 ED Course: 12:49 Patient arrived in ED. ag5 12:51 Cecilio Merida MD is Private Physician. ag5 13:23 Sinan Cole MD is Attending Physician. kdr 13:24 Triage completed. ca1 13:25 Arm band placed on right wrist. ca1 13:34 Candido Weaver, HARSHA is Primary Nurse. bp 13:45 Patient has correct armband on for positive identification. Bed in low position. Call bp light in reach. Side rails up X2. 13:45 Inserted saline lock: 20 gauge in right antecubital area, using aseptic technique. dh4 Blood collected. 14:00 Chest Single View XRAY In Process Unspecified. EDMS 15:47 Cecilio Merida MD is Referral Physician. kdr 16:30 No provider procedures requiring assistance completed. IV discontinued, intact, bp bleeding controlled, No redness/swelling at site. Pressure dressing applied. Administered Medications: 13:50 Drug: NS 0.9% (30 ml/kg) 30 ml/kg Route: IV; Rate: bolus; Site: right antecubital; bp 14:00 Drug: LevaQUIN 500 mg Volume: 100 ml; Route: IVPB; Infused Over: 60 mins; Site: right bp antecubital; 14:30 Drug: SOLU-Medrol 125 mg Route: IVP; Site: right antecubital; bp 15:23 Follow up: Response: No adverse reaction bp 14:30 Drug: morphine 4 mg Route: IVP; Site: right antecubital; bp 15:23 Follow up: Response: Pain is unchanged, physician notified bp 14:30 Drug: Zofran (Ondansetron) 4 mg Route: IVP; Site: right antecubital; bp 15:23 Follow up: Response: No adverse reaction bp 15:23 Drug: morphine 4 mg Route: IVP; Site: right antecubital; bp 16:33 Follow up: Response: Pain is decreased bp Outcome: 15:48 Discharge ordered by . kdr 16:30 Patient left the ED. ss 16:33 Discharged to home ambulatory. bp 16:33 Condition: stable 16:33 Discharge instructions given to patient, Instructed on discharge instructions, follow up and referral plans. medication usage, Demonstrated understanding of instructions, follow-up care, medications, Prescriptions given X 3. Signatures: Dispatcher [employer] EDMS Sinan Cole MD MD kdr Smirch, Shelby, RN RN ss Peltier, Brian, RN RN bp Acob, Cheryl, RN RN [facility] Rosita Hair [facility] Roc Bliss 4 Corrections: (The following items were deleted from the chart) 14:46 14:46 BP 140 / 105; Pulse 98bpm; Resp 16bpm; Pulse Ox 100%; bp bp
--- NOTE | 2020-07-07 15:49 | EDPHYS ---
Physician Documentation [facility] Name: Slava Biswas Age: 35 yrs Sex: Male : 1985 Arrival Date: 07/07/2020 Time: 12:49 Bed 17 Private MD: Cecilio Merida ED Physician Sinan Cole HPI: 07/07 19:59 This 35 yrs old Male presents to ER via Ambulatory with complaints of Side kdr Pain, Ulcerative Colitis Flare Up. 19:59 The patient presents with abdominal pain right lower quadrant. Onset: The kdr symptoms/episode began/occurred yesterday, at 14:30. The symptoms do not radiate. Associated signs and symptoms: Pertinent positives: blood in stools, diarrhea, nausea. The symptoms are described as achy, crampy, intermittent, shooting, waxing/waning. Modifying factors: The symptoms are alleviated by nothing, the symptoms are aggravated by nothing. Severity of pain: At its worst the pain was moderate severe just prior to arrival, in the emergency department the pain has improved mildly. The patient has experienced similar episodes in the past, multiple times. The patient has been recently seen by a physician: The patient has been recently seen at the [facility] Emergency Department, last month. Historical: - Allergies: 13:25 Codeine (Hives, rash); ca1 - Home Meds: 13:25 Prilosec 40 mg Oral cpDR 1 cap 2 times per day [Active]; Probiotic Oral daily [Active]; ca1 - PMHx: 13:25 Colitis; GERD; ulcertive colitis; ca1 - PSHx: 13:25 Hernia repair; Tonsillectomy; rotator cuff repair; deviated septum; ca1 - Immunization history:: Adult Immunizations up to date. - Social history:: Smoking status: Patient denies any tobacco usage or history of. ROS: 19:59 Constitutional: Negative for fever, chills, and weight loss, Eyes: Negative for injury, kdr pain, redness, and discharge, ENT: Negative for injury, pain, and discharge, Neck: Negative for injury, pain, and swelling, Cardiovascular: Negative for chest pain, palpitations, and edema, Respiratory: Negative for shortness of breath, cough, wheezing, and pleuritic chest pain, Back: Negative for injury and pain, : Negative for injury, bleeding, discharge, and swelling, MS/Extremity: Negative for injury and deformity, Skin: Negative for injury, rash, and discoloration, Neuro: Negative for headache, weakness, numbness, tingling, and seizure activity. Psych: Negative for depression, anxiety, suicide ideation, homicidal ideation, and hallucinations, Allergy/Immunology: Negative for hives, rash, and allergies, Endocrine: Negative for neck swelling, polydipsia, polyuria, polyphagia, and marked weight changes, Hematologic/Lymphatic: Negative for swollen nodes, abnormal bleeding, and unusual bruising. 19:59 Abdomen/GI: Positive for abdominal pain, nausea, rectal bleeding, Very mild and intermittent rectal bleeding - consistent with prior episodes of UC flare. Exam: 13:53 ECG was reviewed by the Attending Physician. kdr 19:59 Constitutional: This is a well developed, well nourished patient who is awake, alert, kdr and in no acute distress. Head/Face: Normocephalic, atraumatic. Eyes: Pupils equal round and reactive to light, extra-ocular motions intact. Lids and lashes normal. Conjunctiva and sclera are non-icteric and not injected. Cornea within normal limits. Periorbital areas with no swelling, redness, or edema. Neck: Trachea midline, no thyromegaly or masses palpated, and no cervical lymphadenopathy. Supple, full range of motion without nuchal rigidity, or vertebral point tenderness. No Meningismus. Chest/axilla: Normal chest wall appearance and motion. Nontender with no deformity. No lesions are appreciated. Cardiovascular: Regular rate and rhythm with a normal S1 and S2. No gallops, murmurs, or rubs. Normal PMI, no JVD. No pulse deficits. Respiratory: Lungs have equal breath sounds bilaterally, clear to auscultation and percussion. No rales, rhonchi or wheezes noted. No increased work of breathing, no retractions or nasal flaring. Back: No spinal tenderness. No costovertebral tenderness. Full range of motion. Skin: Warm, dry with normal turgor. Normal color with no rashes, no lesions, and no evidence of cellulitis. MS/ Extremity: Pulses equal, no cyanosis. Neurovascular intact. Full, normal range of motion. Neuro: Awake and alert, GCS 15, oriented to person, place, time, and situation. Cranial nerves II-XII grossly intact. Motor strength 5/5 in all extremities. Sensory grossly intact. Cerebellar exam normal. Normal gait. Psych: Awake, alert, with orientation to person, place and time. Behavior, mood, and affect are within normal limits. 19:59 Abdomen/GI: Inspection: abdomen appears normal, obese Bowel sounds: active, diminished, in all quadrants, Palpation: soft, mild abdominal tenderness, in the right lower quadrant, The patient states that the pain he is having today is identical to his prior episodes of UC. Vital Signs: 13:22 BP 147 / 104; Pulse 117; Resp 16 S; Temp 100.6(O); Pulse Ox 100% on R/A; Weight 117.93 ca1 kg (R); Height 5 ft. 10 in. (177.80 cm) (R); Pain 8/10; 14:30 BP 140 / 105; Pulse 98; Resp 16; Pulse Ox 100% ; bp 16:30 BP 137 / 85; Pulse 87; Resp 17; Pulse Ox 100% ; bp 13:22 Body Mass Index 37.30 (117.93 kg, 177.80 cm) ca1 MDM: 15:48 Patient medically screened. kdr 19:59 Data reviewed: vital signs, nurses notes, lab test result(s). Counseling: I had a kdr detailed discussion with the patient and/or guardian regarding: the historical points, exam findings, and any diagnostic results supporting the discharge/admit diagnosis, lab results, the need for outpatient follow up. ED course: The patient was much improved and happy with the care provided and the plan for discharge and follow-up.. 19:59 ED course: Given that this pain was identical to similar UC flares, the patient agreed kdr to no CT scan given all labs were normal and his pain markedly improved. 07/07 13:29 Order name: Amylase, Serum; Complete Time: 15:17 kdr 07/07 13:29 Order name: Basic Metabolic Panel; Complete Time: 15:17 [facility] 07/07 13:29 Order name: Blood Culture Adult (2) [facility] 07/07 13:29 Order name: CBC with Diff; Complete Time: 14:08 kdr 07/07 13:29 Order name: Ckmb; Complete Time: 15:17 kdr 07/07 13:29 Order name: CPK; Complete Time: 15:17 [facility] 07/07 13:29 Order name: Lactate; Complete Time: 15:17 [facility] 07/07 13:29 Order name: LFT's; Complete Time: 15:17 [facility] 07/07 13:29 Order name: Lipase; Complete Time: 15:17 [facility] 07/07 13:29 Order name: Procalcitonin; Complete Time: 15:17 [facility] 07/07 13:29 Order name: Protime (+inr); Complete Time: 14:08 [facility] 07/07 13:29 Order name: Ptt, Activated; Complete Time: 14:08 [facility] 07/07 13:29 Order name: Troponin (emerg Dept Use Only); Complete Time: 15:17 [facility] 07/07 13:29 Order name: Urine Microscopic Only [facility] 07/07 13:29 Order name: Chest Single View XRAY; Complete Time: 15:17 [facility] 07/07 13:29 Order name: Accucheck; Complete Time: 14:42 [facility] 07/07 13:29 Order name: Cardiac monitoring; Complete Time: 13:46 [facility] 07/07 13:29 Order name: EKG - Nurse/Tech; Complete Time: 13:48 [facility] 07/07 13:29 Order name: IV Saline Lock - Large Bore; Complete Time: 13:48 [facility] 07/07 13:29 Order name: Labs collected and sent; Complete Time: 13:48 [facility] 07/07 13:29 Order name: O2 Per Protocol; Complete Time: 13:47 [facility] 07/07 13:29 Order name: O2 Sat Monitoring; Complete Time: 13:47 [facility] 07/07 13:29 Order name: Urine Dipstick-Ancillary (obtain specimen); Complete Time: 15:12 [facility] 07/07 15:14 Order name: Urine Dipstick--Ancillary (enter results) em1 EC:53 Rate is 109 beats/min. Rhythm is regular, Sinus tachycardia with No ectopy. QRS Cadet is kdr Normal. NV interval is normal. QRS interval is normal. QT interval is normal. Clinical impression: NSR w/ Non-specific ST/T Changes and Sinus tachycardia. Administered Medications: 13:50 Drug: NS 0.9% (30 ml/kg) 30 ml/kg Route: IV; Rate: bolus; Site: right antecubital; bp 14:00 Drug: LevaQUIN 500 mg Volume: 100 ml; Route: IVPB; Infused Over: 60 mins; Site: right bp antecubital; 14:30 Drug: SOLU-Medrol 125 mg Route: IVP; Site: right antecubital; bp 15:23 Follow up: Response: No adverse reaction bp 14:30 Drug: morphine 4 mg Route: IVP; Site: right antecubital; bp 15:23 Follow up: Response: Pain is unchanged, physician notified bp 14:30 Drug: Zofran (Ondansetron) 4 mg Route: IVP; Site: right antecubital; bp 15:23 Follow up: Response: No adverse reaction bp 15:23 Drug: morphine 4 mg Route: IVP; Site: right antecubital; bp 16:33 Follow up: Response: Pain is decreased bp Disposition: 07/07/20 15:48 Discharged to Home. Impression: Abdominal and pelvic pain, Other ulcerative colitis. - Condition is Stable. - Discharge Instructions: Abdominal Pain, Adult, [place]az[place]. - Prescriptions for Zofran 4 mg Oral Tablet - take 1 tablet by ORAL route every 4-6 hours As needed; 12 tablet. Tramadol 50 mg Oral Tablet - take 1 tablet by ORAL route every 8 hours as needed; 12 tablet. Medrol (Thee) 4 mg Oral Tablets, Dose Pack - take 1 tablet by ORAL route as directed - follow package instructions; 1 packet. - Medication Reconciliation Form, Thank You Letter form. - Follow up: Cecilio Merida MD; When: 2 - 3 days; Reason: If symptoms return, Further diagnostic work-up, Recheck today's complaints, Continuance of care, Re-evaluation by your physician. - Problem is new. - Symptoms have improved. Signatures: Dispatcher [employer] EDMS Sinan Cole MD MD [facility] Ursula Encinas RN RN ss Candido Weaver RN RN bp Vannessa Sanchez RN RN ca1 Corrections: (The following items were deleted from the chart) 16:30 15:48 07/07/2020 15:48 Discharged to Home. Impression: Abdominal and pelvic pain; Other ss ulcerative colitis. Condition is Stable. Forms are Medication Reconciliation Form, Thank You Letter, Antibiotic Education, Prescription Opioid Use. Follow up: Cecilio Merida; When: 2 - 3 days; Reason: If symptoms return, Further diagnostic work-up, Recheck today's complaints, Continuance of care, Re-evaluation by your physician. Problem is new. Symptoms have improved. kdr
[2020-07-07 16:37] VITALS: TEMP 100.6; O2SAT 100
[2020-07-07 16:43] VITALS: BP 140/105
== END 2020-07-07 16:30 | disposition home or self-care (01) ==
LOC: ER 12:48
DX: K51.80 Other ulcerative colitis without complications (principal); Z88.5 Allergy status to narcotic agent
CPT/HCPCS: 93005; 87040 ×2; 85025; 80048; 36415; 82150; 82550; 85610; 80076; 83605; 85730; 84484; 82553; 83690; 84145; 71045; 96375; 96374; 99284; J7030; J2930; J2405; 81003; 81015

== ENCOUNTER 2020-07-27 11:46 | Emergency (ER) | payer BC ==
--- OUTSIDE RECORDS SUMMARY | 2020-07-27 11:49 | XMS REPORT | Continuity of Care Document ---
:1985 Author Organization Formerly [facility] t Address [address] [place] [address] Dr. Webb [address] [place] [id number] Care Team Providers Name Role Phone Unavailable Unavailable Unavailable Problems This patient has no known problems. Allergies, Adverse Reactions, Alerts This patient has no known allergies or adverse reactions. Medications This patient has no known medications. Procedures This patient has no known procedures. Results This patient has no known results.
[2020-07-27 13:03] LABS: Albumin 4.1 g/dL (3.4-5.0); Bilirubin Direct 0.1 mg/dL (0-0.2); Bilirubin Total 0.6 mg/dL (0.2-1.0); Protein, Total 8.1 g/dL (6.4-8.2)
[2020-07-27 13:07] LABS: Absolute Lymphocytes (CBC) 1.4 K/uL (0.7-4.9); Basophils % 0.6 % (0-1.3); Hematocrit 45.3 % (39.6-49.0); Lymphocytes % 12.9 % (15.3-44.8); RBC Red Blood Cell Count 5.09 M/uL (4.33-5.43)
[2020-07-27] MEDS ORDERED: NA CHLORIDE 0.9% 1,000 ML ONE (13:24)
[2020-07-27] MEDS ORDERED: MORPHINE 4 MG/ML SYR ONE (13:24)
[2020-07-27] MEDS ORDERED: ONDANSETRON 4 MG/2 ML VIAL ONE (13:24)
[2020-07-27] MEDS ORDERED: METHYLPREDNISOLONE 125 MG INJ ONE (14:32)
[2020-07-27] MEDS ORDERED: FENTANYL CITR 100 MCG/2 ML ONE (14:35)
--- NOTE | 2020-07-27 14:40 | EDPHYS ---
Physician Documentation [facility] Name: Slava Biswas Age: 35 yrs Sex: Male : 1985 Arrival Date: 07/27/2020 Time: 11:48 Bed 17 Private MD: ED Physician Bacilio Newton HPI: 07/27 12:19 This 35 yrs old Male presents to ER via Ambulatory with complaints of pm1 Abdominal Pain. 12:19 The patient presents with abdominal pain right lower quadrant. Onset: The pm1 symptoms/episode began/occurred this morning. The symptoms do not radiate. Associated signs and symptoms: Pertinent positives: bloody mucoid diarrhea that has improved, Pertinent negatives: nausea and vomiting, chest pain, shortness of breath. The symptoms are described as crampy. Modifying factors: The symptoms are alleviated by nothing, the symptoms are aggravated by nothing. Severity of pain: in the emergency department the pain has improved. The patient has experienced similar episodes in the past, chronically. The patient has not recently seen a physician. Patient reports similar to prior ulcerative colitis flare ups. Historical: - Allergies: 11:59 Codeine (Hives, rash); jd3 - Home Meds: 11:59 Prilosec 40 mg Oral cpDR 1 cap 2 times per day [Active]; Probiotic Oral daily [Active]; jd3 - PMHx: 11:59 Colitis; GERD; ulcertive colitis; jd3 - PSHx: 11:59 Hernia repair; Tonsillectomy; rotator cuff repair; deviated septum; jd3 - Immunization history:: Adult Immunizations up to date. - Social history:: Smoking status: Patient denies any tobacco usage or history of. ROS: 12:19 Constitutional: Negative for fever, chills, and weight loss, Cardiovascular: Negative pm1 for chest pain, palpitations, and edema, Respiratory: Negative for shortness of breath, cough, wheezing, and pleuritic chest pain. 12:19 Back: Negative for injury and pain, : Negative for injury, bleeding, discharge, and swelling, MS/Extremity: Negative for injury and deformity, Skin: Negative for injury, rash, and discoloration, Neuro: Negative for headache, weakness, numbness, tingling, and seizure. 12:19 Abdomen/GI: Positive for abdominal pain, diarrhea, of the right lower quadrant, Negative for nausea and vomiting. Exam: 12:19 Constitutional: This is a well developed, well nourished patient who is awake, alert, pm1 and in no acute distress. Head/Face: Normocephalic, atraumatic. Neck: Trachea midline, no thyromegaly or masses palpated, and no cervical lymphadenopathy. Supple, full range of motion without nuchal rigidity, or vertebral point tenderness. No Meningismus. 12:19 Back: No spinal tenderness. No costovertebral tenderness. Full range of motion. Skin: Warm, dry with normal turgor. Normal color with no rashes, no lesions, and no evidence of cellulitis. MS/ Extremity: Pulses equal, no cyanosis. Neurovascular intact. Full, normal range of motion. 12:19 Cardiovascular: Exam negative for acute changes, Rate: normal, Rhythm: regular, Pulses: no pulse deficits are appreciated. 12:19 Respiratory: Exam negative for acute changes, respiratory distress, shortness of breath. 12:19 Abdomen/GI: Inspection: abdomen appears normal, Palpation: abdomen is soft and non-tender, in all quadrants. 12:19 Neuro: Exam negative for acute changes, Orientation: is normal, Mentation: is normal, Motor: is normal, moves all fours. Vital Signs: 11:58 BP 134 / 102; Pulse 116; Resp 17 S; Temp 98.6(O); Pulse Ox 100% on R/A; Weight 117.93 jd3 kg (R); Height 5 ft. 10 in. (177.80 cm) (R); Pain 8/10; 14:23 BP 127 / 100; Pulse 83; Resp 17; Pulse Ox 100% ; Pain 6/10; jl7 11:58 Body Mass Index 37.30 (117.93 kg, 177.80 cm) jd3 MDM: 12:29 Patient medically screened. pm1 14:02 Data reviewed: vital signs. Data interpreted: Pulse oximetry: on room air is 100 %. pm1 Interpretation: normal. 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 07/27 12:16 Order name: Basic Metabolic Panel; Complete Time: 13: ca1 07/27 12:16 Order name: CBC with Diff; Complete Time: 13: ca1 07/27 12:16 Order name: Hepatic Function; Complete Time: 13:09 ca1 07/27 12:16 Order name: Lipase; Complete Time: 13:09 ca1 07/27 12:16 Order name: IV Saline Lock; Complete Time: 12:57 ca1 07/27 12:16 Order name: Labs collected and sent; Complete Time: 12:57 ca1 Administered Medications: 13:10 Drug: NS 0.9% 1000 ml Route: IV; Rate: 1000 ml; Site: right antecubital; ca1 14:15 Follow up: Response: No adverse reaction; IV Status: Completed infusion; IV Intake: jl7 1000ml 13:12 Drug: Zofran (Ondansetron) 4 mg Route: IVP; Site: right antecubital; ca1 13:30 Follow up: Response: No adverse reaction jl7 13:15 Drug: morphine 4 mg {Note: rass 0.} Route: IVP; Site: right antecubital; ca1 13:30 Follow up: Response: No adverse reaction; Pain is decreased jl7 14:25 Drug: SOLU-Medrol 125 mg Route: IVP; Site: right antecubital; jl7 14:40 Follow up: Response: No adverse reaction jl7 14:28 Drug: fentaNYL (PF) 25 mcg Route: IVP; Site: right antecubital; jl7 14:45 Follow up: Response: No adverse reaction; Pain is decreased jl7 Disposition: 18:29 Co-signature as Attending Physician, Bacilio Newton MD. rn Disposition: 07/27/20 14:39 Discharged to Home. Impression: Unspecified abdominal pain, Ulcerative colitis - Flare up. - Condition is Stable. - Discharge Instructions: Abdominal Pain, Adult, Ulcerative Colitis, Adult. - Prescriptions for Tramadol 50 mg Oral Tablet - take 1 tablet by ORAL route every 8 hours as needed; 15 tablet. Medrol (Thee) 4 mg Oral Tablets, Dose Pack - take 1 tablet by ORAL route as directed - follow package instructions; 1 packet. - Medication Reconciliation Form, Thank You Letter, Antibiotic Education, Prescription Opioid Use form. - Follow up: Emergency Department; When: As needed; Reason: Worsening of condition. Follow up: Private Physician; When: 2 - 3 days; Reason: Recheck today's complaints, Continuance of care, Re-evaluation by your physician. - Problem is new. - Symptoms have improved. Signatures: Dispatcher [employer] EDBacilio Romero MD MD rn Luc Portillo, NURSERY NURSE NURSERY NURSE pm1 Brittny Zepeda RN RN jl7 Nicholas Pugh RN RN jd3 Vannessa Sanchez RN RN ca1 Corrections: (The following items were deleted from the chart) 15:03 14:39 07/27/2020 14:39 Discharged to Home. Impression: Unspecified abdominal pain; jl7 Ulcerative colitis - Flare up. Condition is Stable. Forms are Medication Reconciliation Form, Thank You Letter, Antibiotic Education, Prescription Opioid Use. Follow up: Emergency Department; When: As needed; Reason: Worsening of condition. Follow up: Private Physician; When: 2 - 3 days; Reason: Recheck today's complaints, Continuance of care, Re-evaluation by your physician. Problem is new. Symptoms have improved. pm1
--- NOTE | 2020-07-27 14:40 | ER ---
Nurse's Notes [facility] Name: Slaav Biswas Age: 35 yrs Sex: Male : 1985 Arrival Date: 07/27/2020 Time: 11:48 Bed 17 Private MD: Diagnosis: Ulcerative colitis-Flare up;Unspecified abdominal pain Presentation: 07/27 11:57 Chief complaint: Patient states: "I am having a flair up of my ulcerative colitis.". jd3 Coronavirus screen: At this time, the client does not indicate any symptoms associated with coronavirus-19. Ebola Screen: Patient negative for fever greater than or equal to 101.5 degrees Fahrenheit, and additional compatible Ebola Virus Disease symptoms. Initial Sepsis Screen: Does the patient meet any 2 criteria? No. Patient's initial sepsis screen is negative. Does the patient have a suspected source of infection? No. Patient's initial sepsis screen is negative. Risk Assessment: Do you want to hurt yourself or someone else? Patient reports no desire to harm self or others. Onset of symptoms was July 27, 2020. 11:57 Method Of Arrival: Ambulatory j 11:57 Acuity: TRACEE 3 jd3 Historical: - Allergies: 11:59 Codeine (Hives, rash); jd3 - Home Meds: 11:59 Prilosec 40 mg Oral cpDR 1 cap 2 times per day [Active]; Probiotic Oral daily [Active]; jd3 - PMHx: 11:59 Colitis; GERD; ulcertive colitis; jd3 - PSHx: 11:59 Hernia repair; Tonsillectomy; rotator cuff repair; deviated septum; jd3 - Immunization history:: Adult Immunizations up to date. - Social history:: Smoking status: Patient denies any tobacco usage or history of. Screenin:30 Abuse screen: Denies threats or abuse. Denies injuries from another. Nutritional jl7 screening: No deficits noted. Tuberculosis screening: No symptoms or risk factors identified. Fall Risk IV access (20 points). Total Brennan Fall Scale indicates No Risk (0-24 pts). Assessment: 12:30 General: Appears in no apparent distress. uncomfortable, Behavior is calm, cooperative, jl7 appropriate for age. Pain: Complains of pain in abdomen Pain currently is 8 out of 10 on a pain scale. Neuro: Level of Consciousness is awake, alert, obeys commands, Oriented to person, place, time, situation. Cardiovascular: Patient's skin is warm and dry. Respiratory: Airway is patent Respiratory effort is even, unlabored, Respiratory pattern is regular, symmetrical. GI: Abdomen is non-distended, Reports diarrhea. : No signs and/or symptoms were reported regarding the genitourinary system. Derm: Skin is pink, warm \\T\\ dry. 13:30 Reassessment: Patient appears in no apparent distress at this time. Patient and/or jl7 family updated on plan of care and expected duration. Pain level reassessed. Patient is alert, oriented x 3, equal unlabored respirations, skin warm/dry/pink. Patient states symptoms have improved. 14:30 Reassessment: Pain rated 6/10 at this time. jl7 15:02 GI: jl7 Vital Signs: 11:58 BP 134 / 102; Pulse 116; Resp 17 S; Temp 98.6(O); Pulse Ox 100% on R/A; Weight 117.93 jd3 kg (R); Height 5 ft. 10 in. (177.80 cm) (R); Pain 8/10; 14:23 BP 127 / 100; Pulse 83; Resp 17; Pulse Ox 100% ; Pain 6/10; jl7 11:58 Body Mass Index 37.30 (117.93 kg, 177.80 cm) jd3 ED Course: 11:48 Patient arrived in ED. as 11:58 Triage completed. jd3 12:01 Arm band placed on. jd3 12:02 Brittny Zepeda, HARSHA is Primary Nurse. jl7 12:04 Luc Portillo NP is PHCP. pm1 12:04 Bacilio Newton MD is Attending Physician. pm1 12:30 Patient has correct armband on for positive identification. Placed in gown. Bed in low jl7 position. Call light in reach. Side rails up X 1. Pulse ox on. NIBP on. 12:36 Inserted saline lock: 20 gauge in right antecubital area, using aseptic technique. dh4 Blood collected. 12:40 Initial lab(s) drawn, by ED staff, sent to lab. jl7 12:40 No provider procedures requiring assistance completed. jl7 15:02 IV discontinued, intact, bleeding controlled, No redness/swelling at site. Pressure jl7 dressing applied. Administered Medications: 13:10 Drug: NS 0.9% 1000 ml Route: IV; Rate: 1000 ml; Site: right antecubital; ca1 14:15 Follow up: Response: No adverse reaction; IV Status: Completed infusion; IV Intake: jl7 1000ml 13:12 Drug: Zofran (Ondansetron) 4 mg Route: IVP; Site: right antecubital; ca1 13:30 Follow up: Response: No adverse reaction jl7 13:15 Drug: morphine 4 mg {Note: rass 0.} Route: IVP; Site: right antecubital; ca1 13:30 Follow up: Response: No adverse reaction; Pain is decreased jl7 14:25 Drug: SOLU-Medrol 125 mg Route: IVP; Site: right antecubital; jl7 14:40 Follow up: Response: No adverse reaction jl7 14:28 Drug: fentaNYL (PF) 25 mcg Route: IVP; Site: right antecubital; jl7 14:45 Follow up: Response: No adverse reaction; Pain is decreased jl7 Intake: 14:15 IV: 1000ml; Total: 1000ml. jl7 Outcome: 14:39 Discharge ordered by MD. pm1 15:02 Discharged to home ambulatory. jl7 15:02 Condition: stable 15:02 Discharge instructions given to patient, Instructed on discharge instructions, follow up and referral plans. medication usage, Demonstrated understanding of instructions, follow-up care, medications, Prescriptions given X 2. 15:03 Patient left the ED. jl7 Signatures: Malini Velazquez Patrick, NP [employer] pm1 Brittny Zepeda RN RN jl7 Nicholas Pugh RN RN jd3 Acob, Cheryl, RN RN ca1 Huhn, Donald [facility] Corrections: (The following items were deleted from the chart) 12:01 11:58 117.93 kg Reported; Height 5 ft. 10 in. Reported; BMI: 37.3; Pain 8/10; corinne sun
[2020-07-27 15:45] VITALS: TEMP 98.6; O2SAT 100
[2020-07-27 15:51] VITALS: BP 127/100
[2020-07-31] MEDS ORDERED: TETANUS & DIPHTHERIA TOX,ADULT 0.5 ML VIAL ONE (20:18)
[2020-07-31] MEDS ORDERED: LIDOCAINE 1% W/EPI 1:100,000 MDV 20 ML VIAL ONE (20:49)
[2020-07-31] MEDS ORDERED: CEFAZOLIN/SWI 1gm 1 GM/10 ML SYR ONE ×2 (20:49→21:06)
[2020-07-31] MEDS ORDERED: CEPHALEXIN 250 MG CAP ONE (21:06)
[2020-07-31] MEDS ORDERED: HYDROCODONE/APAP 10/325 TAB ONE (21:06)
[2020-07-31] MEDS ORDERED: ONDANSETRON 4 MG/2 ML VIAL ONE (21:12)
[2020-07-31] MEDS ORDERED: MORPHINE 4 MG/ML SYR ONE (21:12)
== END 2020-07-27 15:03 | disposition home or self-care (01) ==
LOC: ER 11:46
DX: K51.90 Ulcerative colitis, unspecified, without complications (principal); K21.9 Gastro-esophageal reflux disease without esophagitis; Z88.5 Allergy status to narcotic agent
CPT/HCPCS: 96361; 85025; 80048; 36415; 80076; 83690; 96375; 96374; 99284; J3010; J7030; J2930; J2405

== ENCOUNTER 2020-07-31 19:48 | Emergency (ER) | payer BC ==
--- OUTSIDE RECORDS SUMMARY | 2020-07-31 19:50 | XMS REPORT | Continuity of Care Document ---
:1985 Author Organization [facility] t Address [address] [place] [address] Dr. Webb [address] [place] [id number] Care Team Providers Name Role Phone Unavailable Unavailable Unavailable Problems This patient has no known problems. Allergies, Adverse Reactions, Alerts This patient has no known allergies or adverse reactions. Medications This patient has no known medications. Procedures This patient has no known procedures. Results This patient has no known results.
--- NOTE | 2020-07-31 20:52 | EDPHYS ---
Physician Documentation [facility] Name: Slava Biswas Age: 35 yrs Sex: Male : 1985 Arrival Date: 07/31/2020 Time: 19:52 Bed 19 Private MD: ED Physician Rei Noguera HPI: 07/31 20:47 This 35 yrs old Male presents to ER via Ambulatory with complaints of Hand umang Injury. 20:47 The patient or guardian reports a puncture wound, from a nail. The complaints affect umang the right hand diffusely. Context: The problem was sustained at home. Onset: The symptoms/episode began/occurred just prior to arrival. Modifying factors: The symptoms are alleviated by elevation, holding still. Associated signs and symptoms: The patient has no apparent associated signs or symptoms. Severity of symptoms: At their worst the symptoms were moderate, in the emergency department the symptoms are unchanged. The patient has not experienced similar symptoms in the past. Historical: - Allergies: 20:00 Codeine (Hives, rash); aj1 - Home Meds: 20:00 Prilosec 40 mg Oral cpDR 1 cap 2 times per day [Active]; Probiotic Oral daily [Active]; aj1 - PMHx: 20:00 Colitis; GERD; ulcertive colitis; aj1 - Immunization history:: Flu vaccine is not up to date. - Social history:: Smoking status: Patient/guardian denies using tobacco. - Family history:: not pertinent. ROS: 20:47 Constitutional: Negative for fever, chills, and weight loss, Eyes: Negative for injury, umang pain, redness, and discharge, ENT: Negative for injury, pain, and discharge, Neck: Negative for injury, pain, and swelling, Cardiovascular: Negative for chest pain, palpitations, and edema, Respiratory: Negative for shortness of breath, cough, wheezing, and pleuritic chest pain, Abdomen/GI: Negative for abdominal pain, nausea, vomiting, diarrhea, and constipation, Back: Negative for injury and pain, : Negative for injury, bleeding, discharge, and swelling, Skin: Negative for injury, rash, and discoloration, Neuro: Negative for headache, weakness, numbness, tingling, and seizure, Psych: Negative for depression, anxiety, suicide ideation, homicidal ideation, and hallucinations, Allergy/Immunology: Negative for hives, rash, and allergies, Endocrine: Negative for neck swelling, polydipsia, polyuria, polyphagia, and marked weight changes, Hematologic/Lymphatic: Negative for swollen nodes, abnormal bleeding, and unusual bruising. 20:47 MS/extremity: Positive for pain, tenderness, of the palm of right hand. Exam: 20:47 Constitutional: This is a well developed, well nourished patient who is awake, alert, umang and in no acute distress. Head/Face: Normocephalic, atraumatic. Eyes: Pupils equal round and reactive to light, extra-ocular motions intact. Lids and lashes normal. Conjunctiva and sclera are non-icteric and not injected. Cornea within normal limits. Periorbital areas with no swelling, redness, or edema. ENT: Nares patent. No nasal discharge, no septal abnormalities noted. Tympanic membranes are normal and external auditory canals are clear. Oropharynx with no redness, swelling, or masses, exudates, or evidence of obstruction, uvula midline. Mucous membranes moist. Neck: Trachea midline, no thyromegaly or masses palpated, and no cervical lymphadenopathy. Supple, full range of motion without nuchal rigidity, or vertebral point tenderness. No Meningismus. Chest/axilla: Normal chest wall appearance and motion. Nontender with no deformity. No lesions are appreciated. Cardiovascular: Regular rate and rhythm with a normal S1 and S2. No gallops, murmurs, or rubs. Normal PMI, no JVD. No pulse deficits. Respiratory: Lungs have equal breath sounds bilaterally, clear to auscultation and percussion. No rales, rhonchi or wheezes noted. No increased work of breathing, no retractions or nasal flaring. Abdomen/GI: Soft, non-tender, with normal bowel sounds. No distension or tympany. No guarding or rebound. No evidence of tenderness throughout. Back: No spinal tenderness. No costovertebral tenderness. Full range of motion. Male : Normal genitalia with no discharge or lesions. Skin: Warm, dry with normal turgor. Normal color with no rashes, no lesions, and no evidence of cellulitis. Neuro: Awake and alert, GCS 15, oriented to person, place, time, and situation. Cranial nerves II-XII grossly intact. Motor strength 5/5 in all extremities. Sensory grossly intact. Cerebellar exam normal. Normal gait. Psych: Awake, alert, with orientation to person, place and time. Behavior, mood, and affect are within normal limits. 20:47 Musculoskeletal/extremity: Extremities: grossly normal except: noted in the palm of right hand: puncture. Vital Signs: 19:55 BP 141 / 100; Pulse 114; Resp 20; Temp 99.9(O); Pulse Ox 100% on R/A; Weight 117.93 kg aj1 (R); Height 5 ft. 10 in. (177.80 cm) (R); Pain 8/10; 21:11 BP 135 / 78; Pulse 89; Resp 18; Temp 98; Pulse Ox 100% on R/A; mg2 19:55 Body Mass Index 37.31 (117.93 kg, 177.80 cm) aj1 Procedures: 20:47 Foreign Body Removal: a nail, from the right palm of right hand, by using a hemostat, [facility] Dressinx4s were used to dress the wound, The patient tolerated the removal well. MDM: 20:05 Patient medically screened. umang 20:50 Differential diagnosis: open fracture. Data reviewed: vital signs, nurses notes, [facility] radiologic studies, plain films. Data interpreted: semiconductor bonder: not applicable for this patient encounter. Pulse oximetry: is not applicable for this patient encounter. Test interpretation: by ED physician or midlevel provider: plain radiologic studies. Counseling: I had a detailed discussion with the patient and/or guardian regarding: the historical points, exam findings, and any diagnostic results supporting the discharge/admit diagnosis, radiology results, the need for outpatient follow up, for definitive care, a hand specialist. 07/31 20:06 Order name: Hand Right 3 View XRAY [facility] 07/31 20:44 Order name: Hand Right 2 View XRAY ar5 07/31 20:38 Order name: IV; Complete Time: 20:38 [facility] 07/31 20:58 Order name: Wound Care; Complete Time: 21:04 umang Administered Medications: 20:10 Drug: Tetanus-Diphtheria Toxoid Adult 0.5 ml {Osteopathy Doctor: [employer]. Exp: mg2 12/04/2022. Lot #: [id number]. } Route: IM; Site: right deltoid; 21:04 Follow up: Response: No adverse reaction mg2 20:42 Drug: Ancef 1 grams Route: IVPB; Site: left antecubital; ea 21:13 Follow up: Response: No adverse reaction; IV Status: Completed infusion mg2 20:42 Drug: Lidocaine-Epinephrine -1%: (1:100,000) 20 ml {Note: administered by provider.} ea Volume: 20 ml; Route: Infiltration; 21:13 Follow up: Response: No adverse reaction mg2 21:04 Drug: Ancef 1 grams Route: IVPB; Site: left antecubital; mg2 21:13 Follow up: Response: No adverse reaction; IV Status: Completed infusion mg2 21:04 Drug: KeFLEX 500 mg Route: PO; mg2 21:13 Follow up: Response: No adverse reaction mg2 21:04 Drug: Neosporin Ointment 1 application Route: Topical; Site: affected area; mg2 21:13 Follow up: Response: No adverse reaction mg2 21:05 Drug: morphine 4 mg Route: IVP; Site: left antecubital; mg2 21:13 Follow up: Response: No adverse reaction; Medication administered at discharge. mg2 21:05 Drug: Zofran (Ondansetron) 4 mg Route: IVP; Site: left antecubital; mg2 21:13 Follow up: Response: No adverse reaction; Medication administered at discharge. mg2 21:05 Not Given (Patient Refused): [place] 10 mg-325 mg 1 tabs PO once; RASS on ADMIN: Combtv4, mg2 Very Agttd3, Agttd2, Rstlss1, AlertClm0, Drwsy-1, Lt Sdtn-2, Mod Sdtn-3, Dp Sdtn-4, UnArsble-5 Disposition: 07/31/20 20:52 Discharged to Home. Impression: Puncture wound with foreign body of right hand - removed. - Condition is Stable. - Discharge Instructions: Puncture Wound, Puncture Wound, [id number]. - Prescriptions for Keflex 500 mg Oral Capsule - take 1 capsule by ORAL route every 6 hours for 10 days; 40 capsule. Tylenol- Codeine #3 300-30 mg Oral Tablet - take 2 tablets by ORAL route every 6 hours As needed; 24 tablet. - Medication Reconciliation Form, Thank You Letter, Antibiotic Education, Prescription Opioid Use form. - Follow up: Private Physician; When: 2 - 3 days; Reason: Recheck today's complaints, Continuance of care, Re-evaluation by your physician. Follow up: Austen Simms MD; When: 1 - 2 days; Reason: Recheck today's complaints, Re-evaluation by your physician. - Problem is new. - Symptoms have improved. Signatures: Dispatcher [employer] Marietta Chan RN RN aj1 Rei Noguera MD MD cha Antunez, Elena, RN RN ea zEekiel Stanton RN RN mg2 Corrections: (The following items were deleted from the chart) 21:14 20:52 07/31/2020 20:52 Discharged to Home. Impression: Puncture wound with foreign body mg2 of right hand - removed. Condition is Stable. Forms are Medication Reconciliation Form, Thank You Letter, Antibiotic Education, Prescription Opioid Use. Follow up: Private Physician; When: 2 - 3 days; Reason: Recheck today's complaints, Continuance of care, Re-evaluation by your physician. Follow up: Austen Simms; When: 1 - 2 days; Reason: Recheck today's complaints, Re-evaluation by your physician. Problem is new. Symptoms have improved. umang
--- NOTE | 2020-07-31 20:52 | ER ---
Nurse's Notes [facility] Name: Slava Biswas Age: 35 yrs Sex: Male : 1985 Arrival Date: 07/31/2020 Time: 19:52 Bed 19 Private MD: Diagnosis: Puncture wound with foreign body of right hand-removed Presentation: 07/31 19:55 Chief complaint: Patient states: "I tripped and fell off a lip in my garage and landed aj1 on my hand, and when I looked I had a nail stuck in my hand. I put some peroxide on it and tried to clean it up the best I can at my house" Reports last tetanus shot was 4 years ago. Coronavirus screen: Client denies travel out of the [place] in the last 14 days. At this time, the client does not indicate any symptoms associated with coronavirus-19. Ebola Screen: Patient denies travel to an Ebola-affected area in the 21 days before illness onset. Initial Sepsis Screen: Does the patient meet any 2 criteria? HR > 90 bpm. No. Patient's initial sepsis screen is negative. Does the patient have a suspected source of infection? Yes: Skin breakdown/wound. Risk Assessment: Do you want to hurt yourself or someone else? Patient reports no desire to harm self or others. Onset of symptoms was July 31, 2020. 19:55 Method Of Arrival: Ambulatory aj1 19:55 Acuity: TRACEE 4 aj1 Triage Assessment: 20:00 General: Appears in no apparent distress. uncomfortable, Behavior is calm, cooperative, aj1 appropriate for age. Pain: Complains of pain in right hand. Neuro: Level of Consciousness is awake, alert, obeys commands. Cardiovascular: Patient's skin is warm and dry. Musculoskeletal: Circulation, motion, and sensation intact. Injury Description: Foreign body is located palm of right hand is nail was sustained 30-60 minutes ago. Historical: - Allergies: 20:00 Codeine (Hives, rash); aj1 - Home Meds: 20:00 Prilosec 40 mg Oral cpDR 1 cap 2 times per day [Active]; Probiotic Oral daily [Active]; aj1 - PMHx: 20:00 Colitis; GERD; ulcertive colitis; aj1 - Immunization history:: Flu vaccine is not up to date. - Social history:: Smoking status: Patient/guardian denies using tobacco. - Family history:: not pertinent. Screenin:12 Abuse screen: Denies threats or abuse. Denies injuries from another. Nutritional mg2 screening: No deficits noted. Tuberculosis screening: No symptoms or risk factors identified. Fall Risk None identified. Assessment: 20:10 General: Appears in no apparent distress. comfortable, Behavior is calm, cooperative. mg2 Pain: Complains of pain in palm of right hand and right hand. Neuro: Level of Consciousness is awake, alert, obeys commands, Oriented to person, place, time, situation. Cardiovascular: Capillary refill < 3 seconds Patient's skin is warm and dry. Respiratory: Airway is patent Respiratory effort is even, unlabored, Respiratory pattern is regular, symmetrical. GI: No signs and/or symptoms were reported involving the gastrointestinal system. : No signs and/or symptoms were reported regarding the genitourinary system. EENT: No signs and/or symptoms were reported regarding the EENT system. Derm:. Musculoskeletal: Circulation, motion, and sensation intact. Capillary refill < 3 seconds. Injury Description: Foreign body is located palm of right hand is nail was sustained less than 30 minutes ago. Vital Signs: 19:55 BP 141 / 100; Pulse 114; Resp 20; Temp 99.9(O); Pulse Ox 100% on R/A; Weight 117.93 kg aj1 (R); Height 5 ft. 10 in. (177.80 cm) (R); Pain 8/10; 21:11 BP 135 / 78; Pulse 89; Resp 18; Temp 98; Pulse Ox 100% on R/A; mg2 19:55 Body Mass Index 37.31 (117.93 kg, 177.80 cm) aj1 ED Course: 19:52 Patient arrived in ED. bg2 19:59 Triage completed. aj1 20:00 Arm band placed on Patient placed in an exam room. aj1 20:02 Ezekiel Stanton, HARSHA is Primary Nurse. mg2 20:05 Rei Noguera MD is Attending Physician. [facility] 20:12 Patient has correct armband on for positive identification. mg2 20:28 Hand Right 3 View XRAY In Process Unspecified. EDMS 20:38 Inserted saline lock: 20 gauge in left antecubital area, using aseptic technique. by mg2 Mary, RN. 20:45 Assist provider with foreign body removal of nail from right palm using alligator mg2 clamps, Set up for procedure. Performed by Rei Noguera MD Dressed with 4X4s, Patient tolerated well. 20:51 Austen Simms MD is Referral Physician. umang 21:06 Hand Right 2 View XRAY In Process Unspecified. EDMS 21:12 IV discontinued, intact, bleeding controlled, No redness/swelling at site. Pressure mg2 dressing applied. Administered Medications: 20:10 Drug: Tetanus-Diphtheria Toxoid Adult 0.5 ml {Industrial Design Intern: [employer]. Exp: mg2 12/04/2022. Lot #: [id number]. } Route: IM; Site: right deltoid; 21:04 Follow up: Response: No adverse reaction mg2 20:42 Drug: Ancef 1 grams Route: IVPB; Site: left antecubital; ea 21:13 Follow up: Response: No adverse reaction; IV Status: Completed infusion mg2 20:42 Drug: Lidocaine-Epinephrine -1%: (1:100,000) 20 ml {Note: administered by provider.} ea Volume: 20 ml; Route: Infiltration; 21:13 Follow up: Response: No adverse reaction mg2 21:04 Drug: Ancef 1 grams Route: IVPB; Site: left antecubital; mg2 21:13 Follow up: Response: No adverse reaction; IV Status: Completed infusion mg2 21:04 Drug: KeFLEX 500 mg Route: PO; mg2 21:13 Follow up: Response: No adverse reaction mg2 21:04 Drug: Neosporin Ointment 1 application Route: Topical; Site: affected area; mg2 21:13 Follow up: Response: No adverse reaction mg2 21:05 Drug: morphine 4 mg Route: IVP; Site: left antecubital; mg2 21:13 Follow up: Response: No adverse reaction; Medication administered at discharge. mg2 21:05 Drug: Zofran (Ondansetron) 4 mg Route: IVP; Site: left antecubital; mg2 21:13 Follow up: Response: No adverse reaction; Medication administered at discharge. mg2 21:05 Not Given (Patient Refused): [place] 10 mg-325 mg 1 tabs PO once; RASS on ADMIN: Combtv4, mg2 Very Agttd3, Agttd2, Rstlss1, AlertClm0, Drwsy-1, Lt Sdtn-2, Mod Sdtn-3, Dp Sdtn-4, UnArsble-5 Outcome: 20:52 Discharge ordered by MD. heck 21:12 Discharged to home ambulatory. mg2 21:12 Condition: stable 21:12 Discharge instructions given to patient, Instructed on discharge instructions, follow up and referral plans. medication usage, Demonstrated understanding of instructions, follow-up care, medications, wound care, Prescriptions given X 2. 21:14 Patient left the ED. mg2 Signatures: Dispatcher [employer] EDMarietta Lake RN RN aj1 Rei Noguera MD MD cha Glass, Brittany bg2 Mary Oliveira RN RN ea Gardose, Michele, RN RN mg2 Corrections: (The following items were deleted from the chart) 20:38 20:12 Patient did not have IV access during this emergency room visit. mg2 mg2
--- NOTE | 2020-07-31 21:04 | RAD REPORT ---
EXAM DESCRIPTION: RAD - Hand Right 3 View - 07/31/2020 8:28 pm CLINICAL HISTORY: PAIN, penetrating injury COMPARISON: Hand Right 3 View dated 02/16/2018 FINDINGS: A nail is present entering the palmar soft tissues. Tip of the nail contacts the distal sh aft third metacarpal. No fractures identified. No acute joint finding. IMPRESSION: Nail enters the palmar soft tissues with the tip of the nail contacting but not fracturi ng the distal third metacarpal shaft.
[2020-07-31 21:21] VITALS: O2SAT 100
[2020-07-31 21:23] VITALS: BP 135/78; TEMP 98
--- NOTE | 2020-08-01 12:15 | RAD REPORT ---
EXAM DESCRIPTION: RAD - Hand Right 2 View - 07/31/2020 9:06 pm CLINICAL HISTORY: PAIN COMPARISON: Chest Pa And Lat (2 Views) dated 07/08/2019Hand Right 3 View dated 07/31/2020; Hand Right 3 View dated 02/16/2018 FINDINGS: Previously noted foreign body has been removed. No fracture or residual foreign body evide nt.
== END 2020-07-31 21:14 | disposition home or self-care (01) ==
LOC: ER 19:48
DX: S61.441A Puncture wound with foreign body of right hand, initial encounter (principal); W01.118A Fall on same level from slipping, tripping and stumbling with subsequent striking against other sharp object, initial encounter; Y93.9 Activity, unspecified; Y92.015 Private garage of single-family (private) house as the place of occurrence of the external cause; Z88.6 Allergy status to analgesic agent; K21.9 Gastro-esophageal reflux disease without esophagitis; K52.9 Noninfective gastroenteritis and colitis, unspecified
CPT/HCPCS: 90471; 96365; 96375; 99284

== ENCOUNTER 2020-08-08 15:36 | Emergency (ER) | payer BC ==
--- OUTSIDE RECORDS SUMMARY | 2020-08-08 15:45 | XMS REPORT | Continuity of Care Document ---
:1985 Author Organization [facility] t Address [address] [place] [address] Dr. Webb [address] [place] [id number] Care Team Providers Name Role Phone Unavailable Unavailable Unavailable Problems This patient has no known problems. Allergies, Adverse Reactions, Alerts This patient has no known allergies or adverse reactions. Medications This patient has no known medications. Procedures This patient has no known procedures. Results This patient has no known results.
[2020-08-08 16:26] LABS: Absolute Lymphocytes (CBC) 2.1 K/uL (0.7-4.9); Basophils % 0.7 % (0-1.3); Lymphocytes % 18.6 % (15.3-44.8); MPV 8.4 fL (7.6-11.3); RBC Red Blood Cell Count 4.72 M/uL (4.33-5.43)
[2020-08-08 16:45] LABS: ALT/SGPT 83 U/L (12-78); AST/SGOT 39 U/L (15-37); Albumin 3.7 g/dL (3.4-5.0); Alkaline Phosphatase 93 U/L (45-117); BUN Blood Urea Nitrogen 10 mg/dL (7-18); Bicarbonate 26 mmol/L (21-32); Bilirubin Direct < 0.1 mg/dL (0-0.2); Bilirubin Total 0.4 mg/dL (0.2-1.0); Glucose Level 107 mg/dL (74-106); Lipase 173 U/L (73-393); Potassium 3.8 mmol/L (3.5-5.1); Protein, Total 7.5 g/dL (6.4-8.2); Sodium Level 144 mmol/L (136-145)
--- NOTE | 2020-08-08 17:08 | EDPHYS ---
Physician Documentation [facility] Name: Slava Biswas Age: 35 yrs Sex: Male : 1985 Arrival Date: 08/08/2020 Time: 15:39 Bed 8 Private MD: ED Physician Bacilio Newton HPI: 08/08 16:03 This 35 yrs old Male presents to ER via Ambulatory with complaints of pm1 Abdominal Pain. 16:03 The patient presents with abdominal pain right lower quadrant. Onset: The pm1 symptoms/episode began/occurred this morning. The symptoms do not radiate. Associated signs and symptoms: Pertinent positives: bloody mucoid diarrhea that has resolved, Pertinent negatives: nausea and vomiting, chest pain, dysuria, fever, shortness of breath. The symptoms are described as achy, constant. Modifying factors: The symptoms are alleviated by nothing, the symptoms are aggravated by nothing. Severity of pain: in the emergency department the pain has improved. The patient has experienced similar episodes in the past, multiple times, and the symptoms today are exactly the same, to previous ulcerative colitis flare up. The patient has been recently seen by a physician: Dr. Valencia for mail puncture wound to right hand with different complaint(s). Historical: - Allergies: 15:49 No Known Allergies; ll1 - PMHx: 15:49 Colitis; GERD; ulcertive colitis; ll1 - PSHx: 15:49 Tonsillectomy; deviated septum repair; Hernia repair; ll1 - Immunization history:: Flu vaccine is not up to date. - Social history:: Smoking status: Patient denies any tobacco usage or history of. ROS: 16:03 Constitutional: Negative for fever, chills, and weight loss, Cardiovascular: Negative pm1 for chest pain, palpitations, and edema, Respiratory: Negative for shortness of breath, cough, wheezing, and pleuritic chest pain. 16:03 Back: Negative for injury and pain, : Negative for injury, bleeding, discharge, and swelling, MS/Extremity: Negative for injury and deformity, Skin: Negative for injury, rash, and discoloration, Neuro: Negative for headache, weakness, numbness, tingling, and seizure. 16:03 Abdomen/GI: Positive for abdominal pain, diarrhea, Negative for nausea and vomiting. Exam: 16:03 Constitutional: This is a well developed, well nourished patient who is awake, alert, pm1 and in no acute distress. Head/Face: Normocephalic, atraumatic. Cardiovascular: Regular rate and rhythm with a normal S1 and S2. No gallops, murmurs, or rubs. Normal PMI, no JVD. No pulse deficits. Respiratory: Lungs have equal breath sounds bilaterally, clear to auscultation and percussion. No rales, rhonchi or wheezes noted. No increased work of breathing, no retractions or nasal flaring. 16:03 Back: No spinal tenderness. No costovertebral tenderness. Full range of motion. Skin: Warm, dry with normal turgor. Normal color with no rashes, no lesions, and no evidence of cellulitis. MS/ Extremity: Pulses equal, no cyanosis. Neurovascular intact. Full, normal range of motion. 16:03 Abdomen/GI: Exam negative for acute changes, Inspection: abdomen appears normal, Palpation: abdomen is soft and non-tender, in all quadrants, mass, is not appreciated, rebound tenderness, is not appreciated. 16:03 Neuro: Exam negative for acute changes, Orientation: is normal, Mentation: is normal, Motor: is normal, moves all fours. Vital Signs: 15:49 BP 145 / 99; Pulse 114; Resp 18; Temp 99.3; Pulse Ox 100% ; Weight 117.93 kg; Height 5 ll1 ft. 10 in. (177.80 cm); Pain 8/10; 17:26 BP 138 / 81; Pulse 101; Resp 20; Pulse Ox 99% on R/A; em 15:49 Body Mass Index 37.31 (117.93 kg, 177.80 cm) ll1 MDM: 15:51 Patient medically screened. pm1 17:05 ED course: Reviewed SHIFT NURSE MANAGER Aware. Showed him his records and discussed with the patient pm1 that I can only give him up to 3 days worth of Tylenol #3 for his pain. Discussed with Dr. Newton and he recommended that only 12 pills for the pain prescription. He was happy with that amount and the care he received. 17:05 Data reviewed: vital signs. Data interpreted: Pulse oximetry: on room air is 100 %. pm1 Interpretation: normal. Counseling: I had a detailed discussion with the patient and/or guardian regarding: the historical points, exam findings, and any diagnostic results supporting the discharge/admit diagnosis, lab results, the need for outpatient follow up, for definitive care, a river pilot, a banana loader, to return to the emergency department if symptoms worsen or persist or if there are any questions or concerns that arise at home. 08/08 15:54 Order name: Basic Metabolic Panel; Complete Time: 16:46 pm1 08/08 15:54 Order name: CBC with Diff; Complete Time: 16:32 pm1 08/08 15:54 Order name: Hepatic Function; Complete Time: 16:46 pm1 08/08 15:54 Order name: Lipase; Complete Time: 16:46 pm1 08/08 15:54 Order name: IV Saline Lock; Complete Time: 16:19 pm1 08/08 15:54 Order name: Labs collected and sent; Complete Time: 16:19 pm1 Administered Medications: 16:14 Drug: SOLU-Medrol 125 mg Route: IVP; Site: right antecubital; em 17:16 Follow up: Response: No adverse reaction em 16:14 Drug: NS 0.9% 1000 ml Route: IV; Rate: 1000 ml; Site: right antecubital; em 17:35 Follow up: IV Status: Completed infusion; IV Intake: 1000ml em 16:16 Drug: Zofran (Ondansetron) 4 mg Route: IVP; Site: right antecubital; em 17:35 Follow up: Response: No adverse reaction; Marked relief of symptoms; Nausea is decreasedem 16:18 Drug: morphine 4 mg Route: IVP; Site: right antecubital; em 17:16 Follow up: Response: No adverse reaction; Marked relief of symptoms; Pain is decreased; em RASS: Alert and Calm (0) 17:35 Drug: fentaNYL (PF) 25 mcg Route: IVP; Site: right antecubital; em 17:36 Follow up: Response: Medication administered at discharge. em Disposition: 18:55 Co-signature as Attending Physician, Bacilio Newton MD. rn Disposition: 08/08/20 17:08 Discharged to Home. Impression: Other ulcerative colitis - flare up, Lower abdominal pain, unspecified. - Condition is Stable. - Discharge Instructions: Abdominal Pain, Adult, Ulcerative Colitis, Adult. - Prescriptions for Tylenol- Codeine #3 300-30 mg Oral Tablet - take 2 tablets by ORAL route every 8 hours As needed; 12 tablet. Medrol (Thee) 4 mg Oral Tablets, Dose Pack - take 1 tablet by ORAL route as directed - follow package instructions; 1 packet. - Medication Reconciliation Form, Thank You Letter, Antibiotic Education, Prescription Opioid Use form. - Follow up: Emergency Department; When: As needed; Reason: Worsening of condition. Follow up: Private Physician; When: 2 - 3 days; Reason: Recheck today's complaints, Continuance of care, Re-evaluation by your physician. - Problem is new. - Symptoms have improved. Signatures: Dispatcher [employer] EDMS Lavon Isbell, RN RN Bacilio Farris MD MD rn Marinas, Patrick, DRUM SANDER DRUM SANDER pm1 Esther Nice RN RN Soraya Will RN RN ll1 Corrections: (The following items were deleted from the chart) 17:11 17:05 ED course: Reviewed SHIFT NURSE MANAGER Aware. Showed him his records and discussed with the pm1 patient that I can only give him 3 days worth of Tylenol #3 for his pain. He was happy with that amount and the care he received. pm1 17:43 17:08 08/08/2020 17:08 Discharged to Home. Impression: Other ulcerative colitis - flare hb up; Lower abdominal pain, unspecified. Condition is Stable. Forms are Medication Reconciliation Form, Thank You Letter, Antibiotic Education, Prescription Opioid Use. Follow up: Emergency Department; When: As needed; Reason: Worsening of condition. Follow up: Private Physician; When: 2 - 3 days; Reason: Recheck today's complaints, Continuance of care, Re-evaluation by your physician. Problem is new. Symptoms have improved. pm1
--- NOTE | 2020-08-08 17:08 | ER ---
Nurse's Notes [facility] Name: Slava Biswas Age: 35 yrs Sex: Male : 1985 Arrival Date: 08/08/2020 Time: 15:39 Bed 8 Private MD: Diagnosis: Other ulcerative colitis-flare up;Lower abdominal pain, unspecified Presentation: 08/08 15:49 Chief complaint: Patient states: Right sided abdominal pain with nausea and diarrhea ll1 for 1 day. History of ulcerative colitis. Coronavirus screen: Client denies travel out of the [place] in the last 14 days. At this time, the client does not indicate any symptoms associated with coronavirus-19. Ebola Screen: Patient denies travel to an Ebola-affected area in the 21 days before illness onset. Initial Sepsis Screen: Does the patient meet any 2 criteria? HR > 90 bpm. No. Patient's initial sepsis screen is negative. Does the patient have a suspected source of infection? Yes: Acute abdominal pain. Risk Assessment: Do you want to hurt yourself or someone else? Patient reports no desire to harm self or others. Onset of symptoms was August 08, 2020. 15:49 Method Of Arrival: Ambulatory ll1 15:49 Acuity: TRACEE 3 ll1 Historical: - Allergies: 15:49 No Known Allergies; ll1 - PMHx: 15:49 Colitis; GERD; ulcertive colitis; ll1 - PSHx: 15:49 Tonsillectomy; deviated septum repair; Hernia repair; ll1 - Immunization history:: Flu vaccine is not up to date. - Social history:: Smoking status: Patient denies any tobacco usage or history of. Screenin:01 Abuse screen: Denies threats or abuse. Nutritional screening: No deficits noted. em Tuberculosis screening: No symptoms or risk factors identified. Fall Risk None identified. Assessment: 16:25 General: Appears in no apparent distress. comfortable, Behavior is calm, cooperative, em appropriate for age. Pain: Complains of pain in right lower quadrant Pain currently is 8 out of 10 on a pain scale. Neuro: Level of Consciousness is awake, alert, obeys commands, Oriented to person, place, time, situation, Appropriate for age. Cardiovascular: Capillary refill < 3 seconds Patient's skin is warm and dry. Respiratory: Airway is patent Respiratory effort is even, unlabored, Respiratory pattern is regular, symmetrical. GI: Abdomen is flat, Bowel sounds present X 4 quads. Abd is soft and non tender X 4 quads. Reports nausea. Derm: Skin is intact, is healthy with good turgor, Skin is pink, warm \T\ dry. Musculoskeletal: Capillary refill < 3 seconds, Range of motion: intact in all extremities. Vital Signs: 15:49 BP 145 / 99; Pulse 114; Resp 18; Temp 99.3; Pulse Ox 100% ; Weight 117.93 kg; Height 5 ll1 ft. 10 in. (177.80 cm); Pain 8/10; 17:26 BP 138 / 81; Pulse 101; Resp 20; Pulse Ox 99% on R/A; em 15:49 Body Mass Index 37.31 (117.93 kg, 177.80 cm) ll1 ED Course: 15:39 Patient arrived in ED. mr 15:49 Arm band placed on Patient placed in an exam room, on a stretcher. ll1 15:50 Triage completed. ll1 15:51 Luc Portillo NP is PHCP. pm1 15:51 Bacilio Newton MD is Attending Physician. pm1 15:53 Lavon Isbell, HARSHA is Primary Nurse. em 16:14 Initial lab(s) drawn, by me, sent to lab. Inserted saline lock: 20 gauge in right em antecubital area, using aseptic technique. Blood collected. 17:36 No provider procedures requiring assistance completed. IV discontinued, intact, em bleeding controlled, No redness/swelling at site. Pressure dressing applied. Administered Medications: 16:14 Drug: SOLU-Medrol 125 mg Route: IVP; Site: right antecubital; em 17:16 Follow up: Response: No adverse reaction em 16:14 Drug: NS 0.9% 1000 ml Route: IV; Rate: 1000 ml; Site: right antecubital; em 17:35 Follow up: IV Status: Completed infusion; IV Intake: 1000ml em 16:16 Drug: Zofran (Ondansetron) 4 mg Route: IVP; Site: right antecubital; em 17:35 Follow up: Response: No adverse reaction; Marked relief of symptoms; Nausea is decreasedem 16:18 Drug: morphine 4 mg Route: IVP; Site: right antecubital; em 17:16 Follow up: Response: No adverse reaction; Marked relief of symptoms; Pain is decreased; em RASS: Alert and Calm (0) 17:35 Drug: fentaNYL (PF) 25 mcg Route: IVP; Site: right antecubital; em 17:36 Follow up: Response: Medication administered at discharge. em Intake: 17:35 IV: 1000ml; Total: 1000ml. em Outcome: 17:08 Discharge ordered by MD. pm1 17:43 Patient left the ED. hb Signatures: Mary Carmen Eller Edgar, RN RN em Luc Portillo, AUTOMOBILE INSURANCE CLAIM EXAMINER AUTOMOBILE INSURANCE CLAIM EXAMINER pm1 Esther Nice RN RN Soraya Tellez RN RN ll1
[2020-08-08 17:51] VITALS: TEMP 99.3
[2020-08-08 17:52] VITALS: BP 138/81; O2SAT 99
== END 2020-08-08 17:43 | disposition home or self-care (01) ==
LOC: ER 15:36
DX: K51.80 Other ulcerative colitis without complications (principal)
CPT/HCPCS: 36415; 80048; 80076; 83690; 85025; 96361; 96374; 96375; 99283

== ENCOUNTER 2020-09-06 14:37 | Emergency (ER) | payer BC ==
--- OUTSIDE RECORDS SUMMARY | 2020-09-06 15:42 | XMS REPORT | Continuity of Care Document ---
:1985 Author Organization [facility] t Address [address] [place] [address] Dr. Webb [address] [place] [id number] Care Team Providers Name Role Phone Unavailable Unavailable Unavailable Problems This patient has no known problems. Allergies, Adverse Reactions, Alerts This patient has no known allergies or adverse reactions. Medications This patient has no known medications. Procedures This patient has no known procedures. Results This patient has no known results.
[2020-09-06 16:28] LABS: Absolute Lymphocytes (CBC) 1.7 K/uL (0.7-4.9); Basophils % 0.7 % (0-1.3); Hematocrit 42.7 % (39.6-49.0); Lymphocytes % 20.6 % (15.3-44.8); MPV 8.4 fL (7.6-11.3); RBC Red Blood Cell Count 4.72 M/uL (4.33-5.43)
[2020-09-06] MEDS ORDERED: METHYLPREDNISOLONE 125 MG INJ ONE (16:28)
[2020-09-06] MEDS ORDERED: ONDANSETRON 4 MG/2 ML VIAL ONE (16:29)
[2020-09-06] MEDS ORDERED: MORPHINE 4 MG/ML SYR ONE ×2 (16:29→17:37)
[2020-09-06] MEDS ORDERED: NA CHLORIDE 0.9% 2,000 ML ONE (16:29)
[2020-09-06] MEDS ORDERED: METRONIDAZOLE 500mg IVPB 500 MG/100 ML BAG IV ONE (16:30)
[2020-09-06] MEDS ORDERED: CIPROFLOXACIN 400mg IV 400 MG/200 ML BAG IV ONE (16:30)
[2020-09-06] MEDS ORDERED: FAMOTIDINE 20 MG/2 ML VIAL IV ONE (16:30)
[2020-09-06 16:47] LABS: Bilirubin Direct 0.1 mg/dL (0-0.2); Bilirubin Total 0.5 mg/dL (0.2-1.0); Potassium 3.8 mmol/L (3.5-5.1); Protein, Total 7.7 g/dL (6.4-8.2)
--- NOTE | 2020-09-06 17:24 | RAD REPORT ---
EXAM DESCRIPTION: CT - Abdomen Pelvis W Contrast - 09/06/2020 5:00 pm CLINICAL HISTORY: ABD PAIN COMPARISON: Abdomen Pelvis W Contrast dated 10/12/2019 TECHNIQUE: Biphasic, helical CT imaging of the abdomen and pelvis was performed following 100 ml non -ionic IV contrast. No oral contrast administered. All CT scans are performed using dose optimization technique as appropriate and may include automated exposure control or mA/KV adjustment according to patient size. FINDINGS: No suspicious findings in the lung bases. No cardiomegaly or pericardial effusion. Small h iatal hernia is present. The liver, spleen, and pancreas show no suspicious findings. Gallbladder and biliary tree are also wi thout suspicious finding. Symmetric renal function is seen with no hydronephrosis or suspicious renal mass. No pyelonephritis o r acute parenchymal process. No bladder abnormalities. No adrenal abnormalities. No dilated bowel loops or bowel wall thickening. Retrocecal appendix is normal. No active GI process identifiable. No free air, free fluid or inflammatory stranding. No hernia, mass or bulky lymphadeno nellie. Left inguinal surgical changes noted. No suspicious bony findings. IMPRESSION: Contrast enhanced CT abdomen and pelvis showing no significant or suspicious finding. No suspicious change from comparison.
--- NOTE | 2020-09-06 17:30 | ER ---
Nurse's Notes [facility] Name: Slava Biswas Age: 35 yrs Sex: Male : 1985 Arrival Date: 09/06/2020 Time: 14:39 Bed 13 Private MD: Diagnosis: Abdominal tenderness;Other ulcerative colitis;Gastrointestinal hemorrhage, unspecified;Left sided colitis-transverse colon Presentation: 09/06 14:53 Chief complaint: Patient states: hx of UC, flare up started this morning, is having RLQ iw pain and diarrhea. Coronavirus screen: At this time, the client does not indicate any symptoms associated with coronavirus-19. Ebola Screen: Patient negative for fever greater than or equal to 101.5 degrees Fahrenheit, and additional compatible Ebola Virus Disease symptoms Patient denies exposure to infectious person. Patient denies travel to an Ebola-affected area in the 21 days before illness onset. No symptoms or risks identified at this time. Initial Sepsis Screen: Does the patient meet any 2 criteria? No. Patient's initial sepsis screen is negative. Does the patient have a suspected source of infection? No. Patient's initial sepsis screen is negative. Risk Assessment: Do you want to hurt yourself or someone else? Patient reports no desire to harm self or others. Onset of symptoms was September 06, 2020. 14:53 Method Of Arrival: Ambulatory iw 14:53 Acuity: TRACEE 3 iw Historical: - Allergies: 14:54 No Known Allergies; iw - Home Meds: 14:54 Prilosec 40 mg Oral cpDR 1 cap 2 times per day [Active]; Probiotic Oral daily [Active]; iw - PMHx: 14:54 Colitis; GERD; ulcertive colitis; iw - PSHx: 14:54 Tonsillectomy; deviated septum repair; Hernia repair; iw - Immunization history:: Adult Immunizations not up to date. - Social history:: Smoking status: Patient denies any tobacco usage or history of. - Family history:: not pertinent. Screenin:57 Abuse screen: Denies threats or abuse. Nutritional screening: No deficits noted. tw2 Tuberculosis screening: No symptoms or risk factors identified. Fall Risk None identified. Assessment: 14:55 General: Appears in no apparent distress. obese, well groomed, Behavior is calm, tw2 cooperative, appropriate for age. Pain: Complains of pain in abdomen. Neuro: Level of Consciousness is awake, alert, obeys commands, Oriented to person, place, time, situation. Cardiovascular: Heart tones S1 S2 Patient's skin is warm and dry. Respiratory: Airway is patent Respiratory effort is even, unlabored, Respiratory pattern is regular, symmetrical, Breath sounds are clear bilaterally. GI: Bowel sounds present X 4 quads. Abd is soft X 4 quads Reports lower abdominal pain, upper abdominal pain, diarrhea, nausea. : No signs and/or symptoms were reported regarding the genitourinary system. EENT: No signs and/or symptoms were reported regarding the EENT system. Derm: No signs and/or symptoms reported regarding the dermatologic system. Musculoskeletal: Range of motion: intact in all extremities. 15:55 Reassessment: Patient appears in no apparent distress at this time. No changes from tw2 previously documented assessment. Patient and/or family updated on plan of care and expected duration. Pain level reassessed. Patient is alert, oriented x 3, equal unlabored respirations, skin warm/dry/pink. 16:06 Reassessment: provider at bedside at this time. tw2 16:52 Reassessment: Patient appears in no apparent distress at this time. No changes from tw2 previously documented assessment. Patient and/or family updated on plan of care and expected duration. Pain level reassessed. Patient is alert, oriented x 3, equal unlabored respirations, skin warm/dry/pink. 17:18 Reassessment: Patient appears in no apparent distress at this time. No changes from tw2 previously documented assessment. Patient and/or family updated on plan of care and expected duration. Pain level reassessed. Patient is alert, oriented x 3, equal unlabored respirations, skin warm/dry/pink. provider notified Patient states symptoms have not improved. 18:39 Reassessment: Patient appears in no apparent distress at this time. No changes from tw2 previously documented assessment. Patient and/or family updated on plan of care and expected duration. Pain level reassessed. Patient is alert, oriented x 3, equal unlabored respirations, skin warm/dry/pink. Patient states feeling better. 18:45 Reassessment: Patient appears in no apparent distress at this time. No changes from tw2 previously documented assessment. Patient and/or family updated on plan of care and expected duration. Pain level reassessed. Patient is alert, oriented x 3, equal unlabored respirations, skin warm/dry/pink. Vital Signs: 14:53 BP 146 / 101; Pulse 72; Resp 16; Temp 98.8; Pulse Ox 100% on R/A; Weight 117.93 kg; iw Height 5 ft. 10 in. (177.80 cm); Pain 8/10; 15:54 BP 123 / 81; Pulse 80; Resp 17; Pulse Ox 100% on R/A; tw2 16:20 Pain 8/10; tw2 16:20 BP 116 / 73; Pulse 58; Resp 18; Pulse Ox 99% on R/A; tw2 17:19 BP 128 / 74; Pulse 73; Resp 18; Pulse Ox 100% on R/A; Pain 8/10; tw2 18:38 BP 127 / 76; Pulse 71; Resp 18; Pulse Ox 100% on R/A; tw2 14:53 Body Mass Index 37.30 (117.93 kg, 177.80 cm) iw ED Course: 14:39 Patient arrived in ED. as 14:54 Triage completed. iw 14:56 Lizz Echevarria, RN is Primary Nurse. tw2 14:57 Arm band placed on. tw2 14:57 Placed in gown. Bed in low position. Pulse ox on. NIBP on. tw2 15:25 Rei Noguera MD is Attending Physician. umang 16:20 Inserted saline lock: 20 gauge in right antecubital area, using aseptic technique. mt Blood collected. 17:01 CT Abd/Pelvis - IV Contrast Only In Process Unspecified. EDMS 17:27 Alonzo Castillo MD is Referral Physician. umang 17:54 Awaiting: completion of IV abx PRIOR to discharge. tw2 18:45 No provider procedures requiring assistance completed. IV discontinued, intact, tw2 bleeding controlled, No redness/swelling at site. Pressure dressing applied. Administered Medications: 16:18 Drug: NS 0.9% 1000 ml Route: IV; Rate: 1 bolus; Site: right antecubital; tw2 18:40 Follow up: Response: No adverse reaction; IV Status: Completed infusion; IV Intake: tw2 1000ml 16:18 Drug: Zofran (Ondansetron) 4 mg Route: IVP; Site: right antecubital; tw2 17:18 Follow up: Response: No adverse reaction tw2 16:20 Drug: NS 0.9% 1000 ml Route: IV; Rate: 1 bolus; Site: right antecubital; tw2 18:39 Follow up: Response: No adverse reaction; IV Status: Completed infusion; IV Intake: tw2 1000ml 16:20 Drug: morphine 4 mg {Note: RASS 0.} Route: IVP; Site: right antecubital; tw2 17:16 Follow up: Response: No adverse reaction; Pain is unchanged, physician notified; RASS: tw2 Alert and Calm (0) 16:20 Drug: SOLU-Medrol 125 mg Route: IVP; Site: right antecubital; tw2 17:18 Follow up: Response: No adverse reaction tw2 16:22 Drug: Pepcid 20 mg Route: IVP; Site: right antecubital; tw2 17:18 Follow up: Response: No adverse reaction tw2 16:28 Drug: Flagyl 500 mg Volume: 100 ml; Route: IVPB; Rate: 200 ml/hr; Infused Over: 30 tw2 mins; Site: right antecubital; 17:02 Follow up: Response: No adverse reaction; IV Status: Completed infusion; IV Intake: tw2 100ml 17:42 Drug: Cipro 400 mg Volume: 200 ml; Route: IVPB; Infused Over: 60 mins; Site: right iw antecubital; 18:39 Follow up: Response: No adverse reaction; IV Status: Completed infusion; IV Intake: tw2 200ml 17:42 Drug: morphine 4 mg Route: IVP; Site: right antecubital; iw 18:35 Follow up: Response: No adverse reaction; Pain is decreased; RASS: Alert and Calm (0) tw2 18:32 Drug: [place] (7.5 mg-325 mg) 1 tabs {Note: RASS 0.} Route: PO; tw2 18:45 Follow up: Response: No adverse reaction; Pain is decreased; RASS: Alert and Calm (0) tw2 Intake: 17:02 IV: 100ml; Total: 100ml. tw2 18:39 IV: 200ml; Total: 300ml. tw2 18:39 IV: 1000ml; Total: 1300ml. tw2 18:40 IV: 1000ml; Total: 2300ml. tw2 Outcome: 17:29 Discharge ordered by MD. heck 18:45 Discharged to home ambulatory. tw2 18:45 Condition: stable 18:45 Discharge instructions given to patient, Instructed on discharge instructions, follow up and referral plans. no drinking with medication, no driving heavy equipment, medication usage, Demonstrated understanding of instructions, follow-up care, medications, Prescriptions given X 5 18:46 Patient left the ED. tw2 Signatures: Dispatcher [employer] EDNE Rei Noguera MD MD cha Martinez, Amelia as Jolene Ware RN RN iw Lizz Echevarria RN RN tw2 Latrice Millan la Corrections: (The following items were deleted from the chart) 14:54 14:53 Pulse 72bpm; Resp 16bpm; Pulse Ox 100% RA; Temp 98.8F; 117.93 kg; Height 5 ft. 10 iw in.; BMI: 37.3; Pain 8/10; iw
--- NOTE | 2020-09-06 17:30 | EDPHYS ---
Physician Documentation [facility] Name: Slava Biswas Age: 35 yrs Sex: Male : 1985 Arrival Date: 09/06/2020 Time: 14:39 Bed 13 Private MD: LIANE Physician Rei Noguera HPI: 09/06 16:11 This 35 yrs old Male presents to ER via Ambulatory with complaints of umang Abdominal Pain - uc flare up. 16:11 The patient presents with abdominal pain in the lower abdomen, right lower quadrant, umang abdominal distention in the upper abdomen, in the lower abdomen. Onset: The symptoms/episode began/occurred 1 day(s) ago. The symptoms do not radiate. Associated signs and symptoms: Pertinent positives: blood in stools, diarrhea. The symptoms are described as crampy, sharp. Modifying factors: The symptoms are alleviated by nothing, the symptoms are aggravated by nothing. Severity of pain: At its worst the pain was mild moderate in the emergency department the pain is unchanged. The patient has not experienced similar symptoms in the past, but friend has similar symptoms. Historical: - Allergies: 14:54 No Known Allergies; iw - Home Meds: 14:54 Prilosec 40 mg Oral cpDR 1 cap 2 times per day [Active]; Probiotic Oral daily [Active]; iw - PMHx: 14:54 Colitis; GERD; ulcertive colitis; iw - PSHx: 14:54 Tonsillectomy; deviated septum repair; Hernia repair; iw - Immunization history:: Adult Immunizations not up to date. - Social history:: Smoking status: Patient denies any tobacco usage or history of. - Family history:: not pertinent. ROS: 16:11 Constitutional: Negative for fever, chills, and weight loss, Eyes: Negative for injury, umang pain, redness, and discharge, ENT: Negative for injury, pain, and discharge, Neck: Negative for injury, pain, and swelling, Cardiovascular: Negative for chest pain, palpitations, and edema, Respiratory: Negative for shortness of breath, cough, wheezing, and pleuritic chest pain, Back: Negative for injury and pain, : Negative for injury, bleeding, discharge, and swelling, MS/Extremity: Negative for injury and deformity, Skin: Negative for injury, rash, and discoloration, Neuro: Negative for headache, weakness, numbness, tingling, and seizure. 16:11 Abdomen/GI: Positive for nausea and vomiting, diarrhea, abdominal cramps, rectal bleeding, of the right lower quadrant. Exam: 16:11 Constitutional: This is a well developed, well nourished patient who is awake, alert, umang and in no acute distress. Head/Face: Normocephalic, atraumatic. Eyes: Pupils equal round and reactive to light, extra-ocular motions intact. Lids and lashes normal. Conjunctiva and sclera are non-icteric and not injected. Cornea within normal limits. Periorbital areas with no swelling, redness, or edema. ENT: Nares patent. No nasal discharge, no septal abnormalities noted. Tympanic membranes are normal and external auditory canals are clear. Oropharynx with no redness, swelling, or masses, exudates, or evidence of obstruction, uvula midline. Mucous membranes moist. Neck: Trachea midline, no thyromegaly or masses palpated, and no cervical lymphadenopathy. Supple, full range of motion without nuchal rigidity, or vertebral point tenderness. No Meningismus. Chest/axilla: Normal chest wall appearance and motion. Nontender with no deformity. No lesions are appreciated. Cardiovascular: Regular rate and rhythm with a normal S1 and S2. No gallops, murmurs, or rubs. Normal PMI, no JVD. No pulse deficits. Respiratory: Lungs have equal breath sounds bilaterally, clear to auscultation and percussion. No rales, rhonchi or wheezes noted. No increased work of breathing, no retractions or nasal flaring. Back: No spinal tenderness. No costovertebral tenderness. Full range of motion. Male : Normal genitalia with no discharge or lesions. Skin: Warm, dry with normal turgor. Normal color with no rashes, no lesions, and no evidence of cellulitis. MS/ Extremity: Pulses equal, no cyanosis. Neurovascular intact. Full, normal range of motion. Neuro: Awake and alert, GCS 15, oriented to person, place, time, and situation. Cranial nerves II-XII grossly intact. Motor strength 5/5 in all extremities. Sensory grossly intact. Cerebellar exam normal. Normal gait. Psych: Awake, alert, with orientation to person, place and time. Behavior, mood, and affect are within normal limits. 16:11 Abdomen/GI: Inspection: abdomen appears normal, Bowel sounds: active, Palpation: moderate abdominal tenderness, in the right lower quadrant and left lower quadrant, Liver: no appreciated palpable abnormalities. Vital Signs: 14:53 BP 146 / 101; Pulse 72; Resp 16; Temp 98.8; Pulse Ox 100% on R/A; Weight 117.93 kg; iw Height 5 ft. 10 in. (177.80 cm); Pain 8/10; 15:54 BP 123 / 81; Pulse 80; Resp 17; Pulse Ox 100% on R/A; tw2 16:20 Pain 8/10; tw2 16:20 BP 116 / 73; Pulse 58; Resp 18; Pulse Ox 99% on R/A; tw2 17:19 BP 128 / 74; Pulse 73; Resp 18; Pulse Ox 100% on R/A; Pain 8/10; tw2 18:38 BP 127 / 76; Pulse 71; Resp 18; Pulse Ox 100% on R/A; tw2 14:53 Body Mass Index 37.30 (117.93 kg, 177.80 cm) iw MDM: 15:25 Patient medically screened. [facility] 16:14 Differential diagnosis: cholecystitis, Cholelithiasis, diverticulitis, gastritis, GI umang Bleed, non-specific abd pain, pancreatitis, Peptic Ulcer Disease, Perf. Gastric Ulcer. Data reviewed: vital signs, nurses notes, lab test result(s), radiologic studies, CT scan. 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 Counseling: I had a detailed discussion with the patient and/or guardian regarding: the historical points, exam findings, and any diagnostic results supporting the discharge/admit diagnosis, lab results, radiology results, the need for outpatient follow up, for definitive care, a sheet heater, an heel gouger. 16:53 ED course: pt improved, will treat, will give steroids, abx and pain meds, follow up dr umang castro. 09/06 16:10 Order name: Basic Metabolic Panel; Complete Time: 16:53 [facility] 09/06 16:10 Order name: CBC with Diff; Complete Time: 16:53 [facility] 09/06 16:10 Order name: Hepatic Function; Complete Time: 16:53 [facility] 09/06 16:10 Order name: Lipase; Complete Time: 16:53 [facility] 11/23 16:10 Order name: CT Abd/Pelvis - IV Contrast Only [facility] 09/06 16:10 Order name: IV Saline Lock; Complete Time: 16:21 [facility] 09/06 16:10 Order name: Labs collected and sent; Complete Time: 16:21 [facility] Administered Medications: 16:18 Drug: NS 0.9% 1000 ml Route: IV; Rate: 1 bolus; Site: right antecubital; tw2 18:40 Follow up: Response: No adverse reaction; IV Status: Completed infusion; IV Intake: tw2 1000ml 16:18 Drug: Zofran (Ondansetron) 4 mg Route: IVP; Site: right antecubital; tw2 17:18 Follow up: Response: No adverse reaction tw2 16:20 Drug: NS 0.9% 1000 ml Route: IV; Rate: 1 bolus; Site: right antecubital; tw2 18:39 Follow up: Response: No adverse reaction; IV Status: Completed infusion; IV Intake: tw2 1000ml 16:20 Drug: morphine 4 mg {Note: RASS 0.} Route: IVP; Site: right antecubital; tw2 17:16 Follow up: Response: No adverse reaction; Pain is unchanged, physician notified; RASS: tw2 Alert and Calm (0) 16:20 Drug: SOLU-Medrol 125 mg Route: IVP; Site: right antecubital; tw2 17:18 Follow up: Response: No adverse reaction tw2 16:22 Drug: Pepcid 20 mg Route: IVP; Site: right antecubital; tw2 17:18 Follow up: Response: No adverse reaction tw2 16:28 Drug: Flagyl 500 mg Volume: 100 ml; Route: IVPB; Rate: 200 ml/hr; Infused Over: 30 tw2 mins; Site: right antecubital; 17:02 Follow up: Response: No adverse reaction; IV Status: Completed infusion; IV Intake: tw2 100ml 17:42 Drug: Cipro 400 mg Volume: 200 ml; Route: IVPB; Infused Over: 60 mins; Site: right iw antecubital; 18:39 Follow up: Response: No adverse reaction; IV Status: Completed infusion; IV Intake: tw2 200ml 17:42 Drug: morphine 4 mg Route: IVP; Site: right antecubital; iw 18:35 Follow up: Response: No adverse reaction; Pain is decreased; RASS: Alert and Calm (0) tw2 18:32 Drug: Cedar (7.5 mg-325 mg) 1 tabs {Note: RASS 0.} Route: PO; tw2 18:45 Follow up: Response: No adverse reaction; Pain is decreased; RASS: Alert and Calm (0) tw2 Disposition: 09/06/20 17:29 Discharged to Home. Impression: Abdominal tenderness, Other ulcerative colitis, Gastrointestinal hemorrhage, unspecified, Left sided colitis - transverse colon. - Condition is Stable. - Discharge Instructions: Abdominal Pain, Adult, Gastrointestinal Bleeding, Rectal Bleeding, Ulcerative Colitis, Adult, Abdominal Pain, Adult, [id number]-tg-Klse, Rectal Bleeding, Fqcn-[id number]. - Prescriptions for Flagyl 500 mg Oral Tablet - take 1 tablet by ORAL route every 8 hours for 7 days; 21 tablet. Tylenol- Codeine #3 300-30 mg Oral Tablet - take 2 tablets by ORAL route every 6 hours As needed; 20 tablet. Cipro 500 mg Oral Tablet - take 1 tablet by ORAL route every 12 hours for 7 days; 14 tablet. Medrol (Thee) 4 mg Oral Tablets, Dose Pack - take 1 tablet by ORAL route as directed - follow package instructions; 1 packet. Zofran 4 mg Oral Tablet - take 1 tablet by ORAL route every 12 hours As needed; 14 tablet. - Medication Reconciliation Form, Thank You Letter, Antibiotic Education, Prescription Opioid Use form. - Follow up: Private Physician; When: 2 - 3 days; Reason: Recheck today's complaints, Continuance of care, Re-evaluation by your physician. Follow up: Alonzo Castillo; When: 2 - 3 days; Reason: Recheck today's complaints, Re-evaluation by your physician. - Problem is new. - Symptoms have improved. Signatures: Dispatcher [employer] Rei Dowling MD MD cha Williams, Irene, HARSHA RN iw Lizz Echevarria RN RN tw2 Corrections: (The following items were deleted from the chart) 18:46 17:29 09/06/2020 17:29 Discharged to Home. Impression: Abdominal tenderness; Other tw2 ulcerative colitis; Gastrointestinal hemorrhage, unspecified; Left sided colitis - transverse colon. Condition is Stable. Discharge Instructions: Abdominal Pain, Adult, Gastrointestinal Bleeding, Rectal Bleeding, Ulcerative Colitis, Adult, Abdominal Pain, Adult, Chse-hy-Erjg, Rectal Bleeding, Ozsu-tb-Pqap. Prescriptions for Flagyl 500 mg Oral Tablet - take 1 tablet by ORAL route every 8 hours for 7 days; 21 tablet, Tylenol-Codeine #3 300-30 mg Oral Tablet - take 2 tablets by ORAL route every 6 hours As needed; 20 tablet, Cipro 500 mg Oral Tablet - take 1 tablet by ORAL route every 12 hours for 7 days; 14 tablet, Medrol (Thee) 4 mg Oral Tablets, Dose Pack - take 1 tablet by ORAL route as directed - follow package instructions; 1 packet, Zofran 4 mg Oral Tablet - take 1 tablet by ORAL route every 12 hours As needed; 14 tablet. and Forms are Medication Reconciliation Form, Thank You Letter, Antibiotic Education, Prescription Opioid Use. Follow up: Private Physician; When: 2 - 3 days; Reason: Recheck today's complaints, Continuance of care, Re-evaluation by your physician. Follow up: Alonzo Castillo; When: 2 - 3 days; Reason: Recheck today's complaints, Re-evaluation by your physician. Problem is new. Symptoms have improved. umang
[2020-09-06] MEDS ORDERED: HYDROCODONE/APAP 7.5/325 MG TAB ONE (18:43)
[2020-09-06 22:17] VITALS: TEMP 98.8
[2020-09-06 22:23] VITALS: O2SAT 100
[2020-09-06 22:24] VITALS: BP 127/76
== END 2020-09-06 18:46 | disposition home or self-care (01) ==
LOC: ER 14:37
DX: K51.80 Other ulcerative colitis without complications (principal); K51.50 Left sided colitis without complications; K92.1 Melena; K21.9 Gastro-esophageal reflux disease without esophagitis
CPT/HCPCS: 96365; 96367; 96361; 85025; 80048; 36415; 80076; 83690; 74177; 96375; 99284; Q9967; J7030; J2930; J2405; J0744

== ENCOUNTER 2020-09-28 15:38 | Emergency (ER) | payer BC ==
--- OUTSIDE RECORDS SUMMARY | 2020-09-28 15:40 | XMS REPORT | Continuity of Care Document ---
:1985 Author Organization [facility] t Address [address] [place] [address] Dr. Webb [address] [place] [id number] Care Team Providers Name Role Phone Unavailable Unavailable Unavailable Problems This patient has no known problems. Allergies, Adverse Reactions, Alerts This patient has no known allergies or adverse reactions. Medications This patient has no known medications. Procedures This patient has no known procedures. Results This patient has no known results.
[2020-09-28 16:14] LABS: Absolute Lymphocytes (CBC) 1.4 K/uL (0.7-4.9); Basophils % 0.5 % (0-1.3); Hematocrit 47.7 % (39.6-49.0); Lymphocytes % 17.5 % (15.3-44.8); MPV 9.4 fL (7.6-11.3); RBC Red Blood Cell Count 5.38 M/uL (4.33-5.43)
[2020-09-28 16:31] LABS: Albumin 4.1 g/dL (3.4-5.0); Bilirubin Direct 0.2 mg/dL (0-0.2); Bilirubin Total 0.8 mg/dL (0.2-1.0); Potassium 3.6 mmol/L (3.5-5.1); Protein, Total 8.3 g/dL (6.4-8.2)
[2020-09-28] MEDS ORDERED: METHYLPREDNISOLONE 125 MG INJ ONE (16:54)
[2020-09-28] MEDS ORDERED: MORPHINE 4 MG/ML SYR ONE ×2 (16:54→18:10)
[2020-09-28] MEDS ORDERED: ONDANSETRON 4 MG/2 ML VIAL ONE ×2 (16:55→18:10)
[2020-09-28] MEDS ORDERED: NA CHLORIDE 0.9% 1,000 ML ONE (16:55)
--- NOTE | 2020-09-28 17:07 | ER ---
Nurse's Notes [facility] Name: Slava Biswas Age: 35 yrs Sex: Male : 1985 Arrival Date: 09/28/2020 Time: 15:41 Bed 15 [facility] MD: Diagnosis: Ulcerative colitis, unspecified Presentation: 09/28 16:05 Chief complaint: Patient states: RLQ pain and diarrhea since last night. "It's a flare sv up of my UC.". Coronavirus screen: Client denies travel out of the [place] in the last 14 days. At this time, the client does not indicate any symptoms associated with coronavirus-19. Ebola Screen: No symptoms or risks identified at this time. Initial Sepsis Screen: Does the patient meet any 2 criteria? HR > 90 bpm. No. Patient's initial sepsis screen is negative. Does the patient have a suspected source of infection? No. Patient's initial sepsis screen is negative. Risk Assessment: Do you want to hurt yourself or someone else? Patient reports no desire to harm self or others. Onset of symptoms was September 27, 2020. 16:05 Method Of Arrival: Ambulatory sv 16:05 Acuity: TRACEE 2 sv Historical: - Allergies: 16:08 No Known Drug Allergies; sv - PMHx: 16:08 Colitis; GERD; ulcertive colitis; sv - PSHx: 16:08 Tonsillectomy; Hernia repair; deviated septum repair; sv - Immunization history:: Flu vaccine is not up to date. - Social history:: Smoking status: Patient denies any tobacco usage or history of. Screenin:45 Abuse screen: Denies threats or abuse. Nutritional screening: No deficits noted. vg1 Tuberculosis screening: No symptoms or risk factors identified. Fall Risk No fall in past 12 months (0 pts). No secondary diagnosis (0 pts). IV access (20 points). Ambulatory Aid- None/Bed Rest/Nurse Assist (0 pts). Gait- Normal/Bed Rest/Wheelchair (0 pts) Mental Status- Oriented to own ability (0 pts). Total Brennan Fall Scale indicates No Risk (0-24 pts). Assessment: 16:45 General: Appears in no apparent distress. Behavior is calm, cooperative. Pain: vg1 Complains of pain in RLQ Pain currently is 8 out of 10 on a pain scale. Pain began this morning. Neuro: Level of Consciousness is awake, alert, obeys commands, Oriented to person, place, time, situation. Cardiovascular: Patient's skin is warm and dry. Respiratory: Airway is patent Respiratory effort is even, unlabored, Respiratory pattern is regular, symmetrical. GI: Bowel sounds present X 4 quads. Abdomen is tender to palpation in right lower quadrant. : No signs and/or symptoms were reported regarding the genitourinary system. EENT: No signs and/or symptoms were reported regarding the EENT system. Derm: No signs and/or symptoms reported regarding the dermatologic system. Musculoskeletal: Range of motion: intact in all extremities. 17:10 Reassessment: D/c ordered. Patient currently receiving IV fluids. Once finished patient vg1 will be discharged. Vital Signs: 16:05 BP 128 / 103; Pulse 106; Resp 16; Temp 97.6; Pulse Ox 99% ; Weight 117.93 kg; Height 5 sv ft. 10 in. (177.80 cm); Pain 8/10; 16:30 BP 109 / 90; Pulse 102; Resp 16; Pulse Ox 100% on R/A; vg1 17:00 BP 121 / 100; Pulse 75; Resp 14; Pulse Ox 100% on R/A; vg1 17:30 BP 127 / 101; Pulse 65; Resp 14; Pulse Ox 100% on R/A; vg1 18:00 BP 119 / 86; Pulse 68; Resp 16; Pulse Ox 100% on R/A; vg1 16:05 Body Mass Index 37.31 (117.93 kg, 177.80 cm) sv ED Course: 15:41 Patient arrived in ED. as 15:45 Veronica Holcomb FNP-C is PHCP. kb 15:45 Rei Noguera MD is Attending Physician. kb 16:00 Initial lab(s) drawn, by me, sent to lab. Inserted saline lock: 20 gauge in right jp3 antecubital area, using aseptic technique. Blood collected. 16:00 Patient maintains SpO2 saturation greater than 95% on room air. jp3 16:06 Bed in low position. Call light in reach. Side rails up X 1. Warm blanket given. Verbal jp3 reassurance given. Pulse ox on. NIBP on. 16:07 Triage completed. sv 16:36 Marleni Murray, RN is Primary Nurse. vg1 16:45 Arm band placed on. vg1 18:05 No provider procedures requiring assistance completed. IV discontinued, intact, vg1 bleeding controlled, No redness/swelling at site. Pressure dressing applied. Administered Medications: 16:49 Drug: NS 0.9% 1000 ml Route: IV; Rate: 1000 ml; Site: right antecubital; vg1 17:40 Follow up: IV Status: Completed infusion; IV Intake: 1000ml vg1 16:49 Drug: morphine 4 mg {Note: rass 0.} Route: IVP; Site: right antecubital; vg1 18:09 Follow up: Response: No adverse reaction; Pain is decreased; RASS: Alert and Calm (0) vg1 16:49 Drug: SOLU-Medrol 125 mg Route: IVP; Site: right antecubital; vg1 18:09 Follow up: Response: No adverse reaction vg1 16:49 Drug: Zofran (Ondansetron) 4 mg Route: IVP; Site: right antecubital; vg1 18:09 Follow up: Response: Nausea is decreased vg1 18:04 Drug: Zofran (Ondansetron) 4 mg Route: IVP; Site: right antecubital; vg1 18:09 Follow up: Response: Medication administered at discharge. vg1 18:04 Drug: morphine 4 mg Route: IVP; Site: right antecubital; vg1 18:10 Follow up: Response: Medication administered at discharge. vg1 18:10 Follow up: Response: RASS: Alert and Calm (0) vg1 Intake: 17:40 IV: 1000ml; Total: 1000ml. vg1 Outcome: 17:07 Discharge ordered by . jeramy 18:05 Discharged to home ambulatory. vg1 18:05 Condition: stable 18:05 Discharge instructions given to patient, Instructed on discharge instructions, follow up and referral plans. medication usage, Demonstrated understanding of instructions, follow-up care, medications, Prescriptions given X 3. 18:10 Patient left the ED. vg1 Signatures: Veronica Holcomb, SUPERVISING AIRPLANE PILOT-C SUPERVISING AIRPLANE PILOT-Sherrie Rubio RN RN sv Martinez, Amelia as Pisarski, Jacob jp3 Marleni Murray RN RN vg1
--- NOTE | 2020-09-28 17:07 | EDPHYS ---
Physician Documentation [facility] Name: Slava Biswas Age: 35 yrs Sex: Male : 1985 Arrival Date: 09/28/2020 Time: 15:41 Bed 15 Private MD: LIANE Physician Rei Noguera HPI: 09/28 16:33 This 35 yrs old Male presents to ER via Ambulatory with complaints of kb Abdominal Pain. 16:33 The patient presents with abdominal pain right lower quadrant. Onset: The kb symptoms/episode began/occurred this morning. The symptoms do not radiate. Associated signs and symptoms: Pertinent positives: diarrhea, nausea. The symptoms are described as constant. Modifying factors: The symptoms are alleviated by nothing, the symptoms are aggravated by nothing. Severity of pain: At its worst the pain was moderate in the emergency department the pain is unchanged. The patient has experienced similar episodes in the past, multiple times. The patient has not recently seen a physician. Pt reports he is having a flare-up of his UC. States the pain and symptoms are exactly the same as previous flares. . Historical: - Allergies: 16:08 No Known Drug Allergies; sv - PMHx: 16:08 Colitis; GERD; ulcertive colitis; sv - PSHx: 16:08 Tonsillectomy; Hernia repair; deviated septum repair; sv - Immunization history:: Flu vaccine is not up to date. - Social history:: Smoking status: Patient denies any tobacco usage or history of. ROS: 16:32 Constitutional: Negative for fever, chills, and weight loss, Cardiovascular: Negative kb for chest pain, palpitations, and edema, Respiratory: Negative for shortness of breath, cough, wheezing, and pleuritic chest pain, Back: Negative for injury and pain, MS/Extremity: Negative for injury and deformity, Skin: Negative for injury, rash, and discoloration, Neuro: Negative for headache, weakness, numbness, tingling, and seizure. 16:32 Abdomen/GI: Positive for abdominal pain, nausea, diarrhea. Exam: 16:32 Constitutional: This is a well developed, well nourished patient who is awake, alert, kb and in no acute distress. Head/Face: Normocephalic, atraumatic. Chest/axilla: Normal chest wall appearance and motion. Nontender with no deformity. No lesions are appreciated. Cardiovascular: Regular rate and rhythm with a normal S1 and S2. No gallops, murmurs, or rubs. Normal PMI, no JVD. No pulse deficits. Respiratory: Lungs have equal breath sounds bilaterally, clear to auscultation and percussion. No rales, rhonchi or wheezes noted. No increased work of breathing, no retractions or nasal flaring. Back: No spinal tenderness. No costovertebral tenderness. Full range of motion. Skin: Warm, dry with normal turgor. Normal color with no rashes, no lesions, and no evidence of cellulitis. MS/ Extremity: Pulses equal, no cyanosis. Neurovascular intact. Full, normal range of motion. Neuro: Awake and alert, GCS 15, oriented to person, place, time, and situation. Cranial nerves II-XII grossly intact. Motor strength 5/5 in all extremities. Sensory grossly intact. Cerebellar exam normal. Normal gait. 16:32 Abdomen/GI: Inspection: abdomen appears normal, Bowel sounds: normal, in all quadrants, Palpation: soft, in all quadrants, mild abdominal tenderness, in the right lower quadrant. Vital Signs: 16:05 BP 128 / 103; Pulse 106; Resp 16; Temp 97.6; Pulse Ox 99% ; Weight 117.93 kg; Height 5 sv ft. 10 in. (177.80 cm); Pain 8/10; 16:30 BP 109 / 90; Pulse 102; Resp 16; Pulse Ox 100% on R/A; vg1 17:00 BP 121 / 100; Pulse 75; Resp 14; Pulse Ox 100% on R/A; vg1 17:30 BP 127 / 101; Pulse 65; Resp 14; Pulse Ox 100% on R/A; vg1 18:00 BP 119 / 86; Pulse 68; Resp 16; Pulse Ox 100% on R/A; vg1 16:05 Body Mass Index 37.31 (117.93 kg, 177.80 cm) sv MDM: 15:45 Patient medically screened. kb 16:32 Data reviewed: vital signs, nurses notes. Data interpreted: Pulse oximetry: on room air kb is 99 %. Interpretation: normal. 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 09/28 15:49 Order name: Basic Metabolic Panel; Complete Time: 16:31 kb 09/28 15:49 Order name: CBC with Diff; Complete Time: 16:23 kb 09/28 15:49 Order name: Hepatic Function; Complete Time: 16:31 kb 09/28 15:49 Order name: Lipase; Complete Time: 16:31 kb 09/28 15:49 Order name: IV Saline Lock; Complete Time: 16:06 kb 09/28 15:49 Order name: Labs collected and sent; Complete Time: 16:06 kb Administered Medications: 16:49 Drug: NS 0.9% 1000 ml Route: IV; Rate: 1000 ml; Site: right antecubital; vg1 17:40 Follow up: IV Status: Completed infusion; IV Intake: 1000ml vg1 16:49 Drug: morphine 4 mg {Note: rass 0.} Route: IVP; Site: right antecubital; vg1 18:09 Follow up: Response: No adverse reaction; Pain is decreased; RASS: Alert and Calm (0) vg1 16:49 Drug: SOLU-Medrol 125 mg Route: IVP; Site: right antecubital; vg1 18:09 Follow up: Response: No adverse reaction vg1 16:49 Drug: Zofran (Ondansetron) 4 mg Route: IVP; Site: right antecubital; vg1 18:09 Follow up: Response: Nausea is decreased vg1 18:04 Drug: Zofran (Ondansetron) 4 mg Route: IVP; Site: right antecubital; vg1 18:09 Follow up: Response: Medication administered at discharge. vg1 18:04 Drug: morphine 4 mg Route: IVP; Site: right antecubital; vg1 18:10 Follow up: Response: Medication administered at discharge. vg1 18:10 Follow up: Response: RASS: Alert and Calm (0) vg1 Disposition: 09/29 11:52 Co-signature as Attending Physician, Rei BRANHAM I agree with the assessment and umang plan of care. Disposition: 09/28/20 17:07 Discharged to Home. Impression: Ulcerative colitis, unspecified. - Condition is Stable. - Discharge Instructions: Ulcerative Colitis, Adult. - Prescriptions for Tylenol- Codeine #3 300-30 mg Oral Tablet - take 1 tablet by ORAL route every 6 hours As needed; 15 tablet. Zofran 4 mg Oral Tablet - take 1 tablet by ORAL route every 6 hours As needed; 20 tablet. Medrol (Thee) 4 mg Oral Tablets, Dose Pack - take 1 tablet by ORAL route as directed - follow package instructions; 1 packet. - Medication Reconciliation Form, Thank You Letter, Antibiotic Education, Prescription Opioid Use form. - Follow up: Emergency Department; When: As needed; Reason: Worsening of condition. Follow up: Private Physician; When: 2 - 3 days; Reason: Recheck today's complaints, Continuance of care, Re-evaluation by your physician. Signatures: Dispatcher [employer] EDVeronica Guy, Sherrie Black, RN RN Rei Christianson MD MD cha Garcia, Victoria RN RN vg1 Corrections: (The following items were deleted from the chart) 09/28 18:10 17:07 09/28/2020 17:07 Discharged to Home. Impression: Ulcerative colitis, unspecified. vg1 Condition is Stable. Discharge Instructions: Ulcerative Colitis, Adult. Prescriptions for Tylenol-Codeine #3 300-30 mg Oral Tablet - take 1 tablet by ORAL route every 6 hours As needed; 15 tablet, Zofran 4 mg Oral Tablet - take 1 tablet by ORAL route every 6 hours As needed; 20 tablet, Medrol (Thee) 4 mg Oral Tablets, Dose Pack - take 1 tablet by ORAL route as directed - follow package instructions; 1 packet. and Forms are Medication Reconciliation Form, Thank You Letter, Antibiotic Education, Prescription Opioid Use. Follow up: Emergency Department; When: As needed; Reason: Worsening of condition. Follow up: Private Physician; When: 2 - 3 days; Reason: Recheck today's complaints, Continuance of care, Re-evaluation by your physician. kb
[2020-09-30 18:21] VITALS: TEMP 97.6
[2020-09-30 18:23] VITALS: O2SAT 100
[2020-09-30 18:24] VITALS: BP 121/100
== END 2020-09-28 18:10 | disposition home or self-care (01) ==
LOC: ER 15:38
DX: K51.90 Ulcerative colitis, unspecified, without complications (principal)
CPT/HCPCS: 96361; 85025; 80048; 36415; 80076; 83690; 96375; 96374; 99284; J7030; J2930; J2405 ×2

== ENCOUNTER 2020-10-19 17:00 | Emergency (ER) | payer BC ==
--- OUTSIDE RECORDS SUMMARY | 2020-10-19 17:01 | XMS REPORT | Continuity of Care Document ---
:1985 Author Organization [facility] t Address [address] [place] [address] Dr. Webb [address] [place] [id number] Care Team Providers Name Role Phone Unavailable Unavailable Unavailable Problems This patient has no known problems. Allergies, Adverse Reactions, Alerts This patient has no known allergies or adverse reactions. Medications This patient has no known medications. Procedures This patient has no known procedures. Results This patient has no known results.
[2020-10-19 17:50] LABS: Absolute Lymphocytes (CBC) 1.7 K/uL (0.7-4.9); Basophils % 0.3 % (0-1.3); Lymphocytes % 16.4 % (15.3-44.8); MPV 9.4 fL (7.6-11.3); RBC Red Blood Cell Count 5.18 M/uL (4.33-5.43)
[2020-10-19 17:51] LABS: Protime INR 1.31
[2020-10-19] MEDS ORDERED: METHYLPREDNISOLONE 125 MG INJ ONE (17:54)
[2020-10-19] MEDS ORDERED: MEPERIDINE HCL 25 MG/ML SYR ONE ×3 (17:55→20:16)
[2020-10-19] MEDS ORDERED: NA CHLORIDE 0.9% 1,000 ML ONE (17:55)
[2020-10-19 18:13] LABS: Albumin 4.1 g/dL (3.4-5.0); Bilirubin Direct 0.2 mg/dL (0-0.2); Bilirubin Total 0.8 mg/dL (0.2-1.0); Potassium 3.7 mmol/L (3.5-5.1); Protein, Total 7.8 g/dL (6.4-8.2)
--- NOTE | 2020-10-19 19:54 | ER ---
Nurse's Notes [facility] Name: Slava Biswas Age: 35 yrs Sex: Male : 1985 Arrival Date: 10/19/2020 Time: 17:02 Bed 20 Private MD: Diagnosis: Lower abdominal pain, unspecified-History of Ulcerative Colitis Presentation: 10/19 17:07 Chief complaint: Patient states: i am having a flare up of my ulcerative colitis and tw2 pain in the general area, pain on right lower abdomen. Coronavirus screen: diarrhea, nausea, Client presents with at least one sign or symptom that may indicate coronavirus-19. Standard/surgical mask placed on the client. Provider contacted for isolation considerations. Ebola Screen: Patient denies travel to an Ebola-affected area in the 21 days before illness onset. Initial Sepsis Screen: Does the patient meet any 2 criteria? HR > 90 bpm. No. Patient's initial sepsis screen is negative. Does the patient have a suspected source of infection? No. Patient's initial sepsis screen is negative. Risk Assessment: Do you want to hurt yourself or someone else? Patient reports no desire to harm self or others. Onset of symptoms was October 19, 2020. 17:07 Method Of Arrival: Ambulatory tw2 17:07 Acuity: TRACEE 2 tw2 Triage Assessment: 17:09 General: Appears in no apparent distress. uncomfortable, Behavior is calm, cooperative, tw2 appropriate for age. Pain: Complains of pain in abdomen. GI: Reports lower abdominal pain, diarrhea, nausea, vomiting. Historical: - Allergies: 17:09 No Known Drug Allergies; tw2 - Home Meds: 17:09 Prilosec 40 mg Oral cpDR 1 cap 2 times per day [Active]; Probiotic Oral daily [Active]; tw2 - PMHx: 17:09 Colitis; GERD; ulcertive colitis; tw2 - PSHx: 17:09 Tonsillectomy; Hernia repair; deviated septum repair; tw2 - Immunization history:: Adult Immunizations. - Social history:: Smoking status: Patient denies any tobacco usage or history of. Screenin:10 Abuse screen: Denies threats or abuse. Denies injuries from another. Nutritional bp screening: No deficits noted. Tuberculosis screening: No symptoms or risk factors identified. Fall Risk None identified. Assessment: 17:10 General: SEE TRIAGE NOTE. bp 17:45 Reassessment: No changes from previously documented assessment. Patient and/or family bp updated on plan of care and expected duration. Pain level reassessed. Patient is alert, oriented x 3, equal unlabored respirations, skin warm/dry/pink. IVF INFUSING. GI: Abdomen is non-distended. 18:45 Reassessment: No changes from previously documented assessment. Patient and/or family bp updated on plan of care and expected duration. Pain level reassessed. Patient is alert, oriented x 3, equal unlabored respirations, skin warm/dry/pink. RAD PENDING. 19:15 Reassessment: REPORT TO ERMA RN. bp 19:15 General: Appears comfortable, obese, Behavior is calm, cooperative, appropriate for zb age. Pain: Complains of pain in RLQ Pain does not radiate. Pain currently is 7 out of 10 on a pain scale. Quality of pain is described as sharp. Neuro: Level of Consciousness is awake, alert, obeys commands, Oriented to person, place, time, situation. Cardiovascular: Capillary refill < 3 seconds in bilateral fingers Patient's skin is warm and dry. Respiratory: Airway is patent Respiratory effort is even, unlabored, Respiratory pattern is regular, symmetrical. : No signs and/or symptoms were reported regarding the genitourinary system. EENT: No signs and/or symptoms were reported regarding the EENT system. Derm: Skin is intact, is healthy with good turgor, Skin is dry, Skin is normal. Musculoskeletal: Circulation, motion, and sensation intact. Capillary refill < 3 seconds, in bilateral fingers. Range of motion: intact in all extremities. Vital Signs: 17:07 BP 139 / 118; Pulse 133; Resp 19; Temp 97.8(TE); Pulse Ox 99% on R/A; Weight 117.93 kg tw2 (R); Height 5 ft. 10 in. (177.80 cm); Pain 8/10; 17:45 BP 128 / 103; Pulse 108; Resp 19; Pulse Ox 100% ; bp 18:37 BP 130 / 89; Pulse 98; Resp 16 S; Pulse Ox 98% on R/A; ca1 17:07 Body Mass Index 37.31 (117.93 kg, 177.80 cm) tw2 ED Course: 17:02 Patient arrived in ED. ag3 17:08 Triage completed. tw2 17:09 Arm band placed on. tw2 17:10 Patient has correct armband on for positive identification. Bed in low position. Call bp light in reach. Side rails up X2. 17:16 Rei Gaytan PA is PHCP. cp 17:16 Rei Noguera MD is Attending Physician. cp 17:22 Candido Weaver, HARSHA is Primary Nurse. bp 17:30 Inserted saline lock: 20 gauge in right antecubital area, using aseptic technique. bp Blood collected. 19:26 XRAY Abdomen Acute Series In Process Unspecified. EDMS 19:33 Primary Nurse role handed off by Candido Weaver, HARSHA sg 19:57 Veronica Gilbert RN is Primary Nurse. zb 20:11 No provider procedures requiring assistance completed. IV discontinued, intact, zb bleeding controlled, No redness/swelling at site. Pressure dressing applied. Administered Medications: 17:35 Drug: NS 0.9% 1000 ml Route: IV; Rate: 1 bolus; Site: right antecubital; bp 18:44 Follow up: IV Status: Completed infusion; IV Intake: 1000ml bp 20:09 Follow up: Response: No adverse reaction; IV Intake: 1000ml zb 17:35 Drug: Demerol 25 mg Route: IVP; Site: right antecubital; bp 18:44 Follow up: Response: Pain is decreased bp 20:09 Follow up: Response: No adverse reaction zb 17:35 Drug: SOLU-Medrol 125 mg Route: IVP; Site: right antecubital; bp 18:44 Follow up: Response: No adverse reaction bp 20:09 Follow up: Response: No adverse reaction zb 18:50 Drug: Demerol 25 mg Route: IVP; Site: right antecubital; bp 18:51 Follow up: Response: Pain is decreased bp 20:09 Follow up: Response: No adverse reaction; RASS: Alert and Calm (0) zb 20:04 Drug: Demerol 25 mg Route: IVP; Site: right forearm; zb 20:08 Follow up: Response: Medication administered at discharge. zb Intake: 18:44 IV: 1000ml; Total: 1000ml. bp 20:09 IV: 1000ml; Total: 2000ml. zb Outcome: 19:53 Discharge ordered by . cp 20:11 Discharged to home ambulatory. zb 20:11 Condition: stable 20:11 Discharge instructions given to patient, Instructed on discharge instructions, follow up and referral plans. medication usage, Demonstrated understanding of instructions, follow-up care, medications, Prescriptions given X 3. 20:11 Patient left the ED. fidenciob Signatures: Dispatcher [employer] EDMS Greg Pedro RN RN sg Rei Gaytan PA PA cp Wise, Tara, RN RN tw2 Candido Weaver RN RN bp Anabel Durbin ag3 Vannessa Sanchez, RN RN ca1 Veronica Gilbert RN RN zb
--- NOTE | 2020-10-19 19:54 | EDPHYS ---
Physician Documentation [facility] Name: Slava Biswas Age: 35 yrs Sex: Male : 1985 Arrival Date: 10/19/2020 Time: 17:02 Bed 20 Private MD: LIANE Physician Rei Noguera HPI: 10/19 17:30 This 35 yrs old Male presents to ER via Ambulatory with complaints of Flank cp Pain. 17:30 The patient complains of pain in the right lower flank area. The pain radiates to the cp back and abdomen. Onset: The symptoms/episode began/occurred this morning. Associated signs and symptoms: Pertinent positives: diarrhea, Pertinent negatives: dysuria, fever, hematuria, pain radiating to the lower extremities, vomiting. Severity of pain: in the emergency department the pain is unchanged despite home interventions. The patient has experienced similar episodes in the past, multiple times, today's symptoms are similar, to previous exacerbations of ulcerative colitis. Historical: - Allergies: 17:09 No Known Drug Allergies; tw2 - Home Meds: 17:09 Prilosec 40 mg Oral cpDR 1 cap 2 times per day [Active]; Probiotic Oral daily [Active]; tw2 - PMHx: 17:09 Colitis; GERD; ulcertive colitis; tw2 - PSHx: 17:09 Tonsillectomy; Hernia repair; deviated septum repair; tw2 - Immunization history:: Adult Immunizations. - Social history:: Smoking status: Patient denies any tobacco usage or history of. ROS: 17:35 Constitutional: Negative for body aches, chills, fever, poor PO intake. cp 17:35 Eyes: Negative for injury, pain, redness, and discharge. cp 17:35 Cardiovascular: Negative for chest pain. 17:35 Respiratory: Negative for cough, shortness of breath, wheezing. 17:35 Abdomen/GI: Positive for abdominal pain, diarrhea, Negative for vomiting, constipation, anorexia, black/tarry stool, rectal bleeding. 17:35 Back: Positive for radiated pain. 17:35 : Positive for flank pain, Negative for urinary symptoms. 17:35 Neuro: Negative for altered mental status, headache, weakness. 17:35 All other systems are negative. Exam: 17:42 Constitutional: The patient appears in no acute distress, alert, awake, non-toxic, well cp developed, well nourished. 17:42 Head/Face: Normocephalic, atraumatic. cp 17:42 Eyes: Periorbital structures: appear normal, Conjunctiva: normal, no exudate, no injection, Sclera: no appreciated abnormality, Lids and lashes: appear normal, bilaterally. 17:42 ENT: External ear(s): are unremarkable, Nose: is normal, Posterior pharynx: Airway: no evidence of obstruction, patent. 17:42 Chest/axilla: Inspection: normal, Palpation: is normal, no crepitus, no tenderness. 17:42 Cardiovascular: Rate: tachycardic, Rhythm: regular. 17:42 Respiratory: the patient does not display signs of respiratory distress, Respirations: normal, no use of accessory muscles, no retractions, labored breathing, is not present, Breath sounds: are clear throughout, no decreased breath sounds, no stridor, no wheezing. 17:42 Abdomen/GI: Inspection: abdomen appears normal, Bowel sounds: active, all quadrants, Palpation: soft, in all quadrants, moderate abdominal tenderness, in the right lower quadrant, rebound tenderness, is not appreciated, voluntary guarding, is not appreciated, involuntary guarding, is not appreciated. 17:42 Back: CVA tenderness, is absent. 17:42 Neuro: Orientation: to person, place \T\ time. Mentation: is normal. Vital Signs: 17:07 BP 139 / 118; Pulse 133; Resp 19; Temp 97.8(TE); Pulse Ox 99% on R/A; Weight 117.93 kg tw2 (R); Height 5 ft. 10 in. (177.80 cm); Pain 8/10; 17:45 BP 128 / 103; Pulse 108; Resp 19; Pulse Ox 100% ; bp 18:37 BP 130 / 89; Pulse 98; Resp 16 S; Pulse Ox 98% on R/A; ca1 17:07 Body Mass Index 37.31 (117.93 kg, 177.80 cm) tw2 MDM: 17:17 Patient medically screened. cp 19:52 Data reviewed: vital signs, nurses notes, lab test result(s), radiologic studies, plain cp films. 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 Response to treatment: the patient's symptoms have markedly improved after treatment, and as a result, I will discharge patient. Special discussion: Based on the patient's Hx, exam, and Dx evaluation, there is no indication for emergent surgery or inpatient Tx. It is understood by the patient/guardian that if the Sx's persist or worsen they need to return immediately for re-evaluation. 10/19 17:20 Order name: Basic Metabolic Panel; Complete Time: 18:14 cp 10/19 18:14 Interpretation: Normal except: CL 112; GLUC 131; GFR 64. cp 10/19 17:20 Order name: CBC with Diff; Complete Time: 18:14 cp 10/19 17:20 Order name: Hepatic Function; Complete Time: 18:14 cp 10/19 17:20 Order name: Lipase; Complete Time: 18:14 cp 10/19 17:20 Order name: PT-INR; Complete Time: 18:14 cp 10/19 18:15 Order name: XRAY Abdomen Acute Series cp 10/19 17:20 Order name: IV Saline Lock; Complete Time: 17:45 cp 10/19 17:20 Order name: Labs collected and sent; Complete Time: 17:45 cp 10/19 19:25 Order name: PO challenge; Complete Time: 20:05 cp Administered Medications: 17:35 Drug: NS 0.9% 1000 ml Route: IV; Rate: 1 bolus; Site: right antecubital; bp 18:44 Follow up: IV Status: Completed infusion; IV Intake: 1000ml bp 20:09 Follow up: Response: No adverse reaction; IV Intake: 1000ml zb 17:35 Drug: Demerol 25 mg Route: IVP; Site: right antecubital; bp 18:44 Follow up: Response: Pain is decreased bp 20:09 Follow up: Response: No adverse reaction zb 17:35 Drug: SOLU-Medrol 125 mg Route: IVP; Site: right antecubital; bp 18:44 Follow up: Response: No adverse reaction bp 20:09 Follow up: Response: No adverse reaction zb 18:50 Drug: Demerol 25 mg Route: IVP; Site: right antecubital; bp 18:51 Follow up: Response: Pain is decreased bp 20:09 Follow up: Response: No adverse reaction; RASS: Alert and Calm (0) zb 20:04 Drug: Demerol 25 mg Route: IVP; Site: right forearm; zb 20:08 Follow up: Response: Medication administered at discharge. zb Disposition: 10/19/20 19:53 Discharged to Home. Impression: Lower abdominal pain, unspecified - History of Ulcerative Colitis. - Condition is Stable. - Discharge Instructions: Abdominal Pain, Adult, Ulcerative Colitis, Adult. - Prescriptions for Bentyl 20 mg Oral Tablet - take 1 tablet by ORAL route every 6 hours As needed; 20 tablet. Zofran 4 mg Oral Tablet - take 1 tablet by ORAL route every 12 hours As needed; 20 tablet. Medrol (Thee) 4 mg Oral Tablets, Dose Pack - take 1 tablet by ORAL route as directed - follow package instructions; 1 packet. - Medication Reconciliation Form, Thank You Letter, Antibiotic Education, Prescription Opioid Use form. - Follow up: Private Physician; When: 2 - 3 days; Reason: Recheck today's complaints. - Problem is an acute exacerbation. - Symptoms have improved. Addendum: 10/20/2020 20:13 Addendum: Review of [place] prescription monitor website shows Narcotic score 600-300-0 c p with overdose score of 600. Patient to f/u with PCP for pain control and prescription meds. 10/21/2020 05:37 Co-signature as Attending Physician, Rei Noguera MD I agree with the assessment and c [facility] plan of care. Signatures: Dispatcher [employer] Rei Dowling MD MD cha Page, Corey, PA PA cp Wise, Tara RN RN tw2 Candido Weaver RN RN Veronica Shen RN RN zb Corrections: (The following items were deleted from the chart) 10/19 20:11 19:53 10/19/2020 19:53 Discharged to Home. Impression: Lower abdominal pain, zb unspecified - History of Ulcerative Colitis. Condition is Stable. Forms are Medication Reconciliation Form, Thank You Letter, Antibiotic Education, Prescription Opioid Use. Follow up: Private Physician; When: 2 - 3 days; Reason: Recheck today's complaints. Problem is an acute exacerbation. Symptoms have improved. cp
--- NOTE | 2020-10-19 20:10 | RAD REPORT ---
EXAM DESCRIPTION: RAD - Abdomen Acute Series - 10/19/2020 7:26 pm CLINICAL HISTORY: ABD PAIN COMPARISON: Single-view chest June 2020 FINDINGS: Lungs are clear. Interstitial markings match comparison. Heart size and pulmonary vasculat ure are normal. No pleural effusion, pneumothorax or other acute cardiopulmonary process seen. Bowel gas pattern is nonspecific. No bowel obstruction, free air or other acute findings. No suspicio us calcifications. No other suspicious for significant findings. IMPRESSION: Negative acute abdomen series.
== END 2020-10-19 20:11 | disposition home or self-care (01) ==
LOC: ER 17:00
DX: R10.30 Lower abdominal pain, unspecified (principal); K51.90 Ulcerative colitis, unspecified, without complications
CPT/HCPCS: 85025; 80048; 36415; 85610; 80076; 83690; 74022; 99284; J2175 ×3; J7030; J2930

== ENCOUNTER 2020-11-07 12:21 | Emergency (ER) | payer BC ==
--- OUTSIDE RECORDS SUMMARY | 2020-11-07 12:23 | XMS REPORT | Clinical Summary ---
:1985 Author Organization [facility] Address [address] [place] [id number] Care Team Providers Name Role Phone Cecilio Merida MD Primary Care Provider Allergies Active Allergy Reactions Severity Noted Date Comments Nsaids (Non-Steroidal Other (See Comments) 10/27/2020 Anti-Inflammatory Drug) Medications Medication Sig Dispensed Refills Start Date End Date Status omeprazole 0 03/27/2010 Active (PriLOSEC) 40 MG capsule acetaminophen-codein Take 1-2 tablets 30 tablet 0 10/27/2020 0 11/03/2020 e (TYLENOL WITH by mouth every 6 CODEINE #3) 300-30 (six) hours as mg per needed for tabletIndications: moderate pain for acute pain up to 7 days .acute pain. Active Problems Problem Noted Date Strain of left shoulder 10/28/2020 Injury of left shoulder 10/28/2020 Encounters Date Type Specialty Care Team Description 10/27/2020 Office Visit Orthopedic Surgery Armen Carranza MD Stra in of left shoulder, initial encounter (Primary Dx); Injury of left shoulder, initial encounter 10/27/2020 Travel after 11/07/2019 Surgical History Surgery Date Site/Laterality Comments ABDOMINAL SURGERY Hernia repair 1999 ORTHOPEDIC SURGERY 10/15/2011 - 10/14/2012 Right s stephaniulder rotator cuff Medical History Medical History Date Comments GERD (gastroesophageal reflux disease) March 2010 Family History Medical History Relation Name Comments Diabetes Father Mehrdad Biswas Relation Name Status Comments Father Mehrdad Biswas Social History Tobacco Use Types Packs/Day Years Used Date Never Smoker 0 0 Smokeless Tobacco: Never Used Alcohol Use Drinks/Week oz/Week Comments Never Sex Assigned at Date Recorded Not on file Job Start Date Occupation Industry Not on file Not on file Not on file COVID-19 Exposure Response Date Recorded In the last month, have you been in contact with No / Unsure 10/27/2020 1:54 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 Last Filed Vital Signs Vital Sign Reading Time Taken Comments Blood Pressure - - Pulse - - Temperature - - Respiratory Rate - - Oxygen Saturation - - Inhaled Oxygen Concentration - - Weight 113 kg (250 lb) 10/27/2020 3:59 PM REFRIGERATION ENGINEER Height 177.8 cm (5' 10") 10/27/2020 3:59 PM REFRIGERATION ENGINEER Body Mass Index 35.87 10/27/2020 3:59 PM REFRIGERATION ENGINEER Plan of Treatment Health Maintenance Due Date Last Done Comments COVID-19 VACCINE (1 of 2) 2000 INFLUENZA VACCINE 05/15/2020 Procedures Procedure Name Priority Date/Time Associated Comments Diagnosis XR SHOULDER 2+ VW LEFT Routine 10/27/2020 4:09 Injury of left Results for this PM REFRIGERATION ENGINEER shoulder, initial procedure are in encounter the results section. [place] ARTHROCENTESIS Routine 10/27/2020 3:50 Strain of left Resu lts for this ASPIR&/INJ MAJOR PM REFRIGERATION ENGINEER shoulder, initial proced ure are in JT/BURSA W/O US encounter the results section. after 11/07/2019 Results XR Shoulder 2+ Vw Left (10/27/2020 4:09 PM REFRIGERATION ENGINEER) Specimen Narrative Performed At This result has an attachment that is no t available. Normal bony architecture RADIBRAD Performing Organization Address City/State/ZIP Code Phon e Number [facility] [address] [place] [address] Shoulder left cortisone injection (10/27/2020 3:50 PM REFRIGERATION ENGINEER) Narrative Performed At Armen Carranza MD 10/28/2020 10:29 AM Shoulder left cortisone injection Consent given by: patient Site marked: site marked Timeout: Immediately prior to procedure a time out was called to verify the correct patient, procedure, equipmen t, learning support aide and site/side marked as required Supporting Documentation Indications: pain Procedure Details Preparation: Patient was prepped and jose ped in the usual sterile fashion Ultrasound guided: no Location: shoulder - L subacromial bursa Left side: Needle size: 25 G (25 gauge) Approach: anterolateral Left shoulder medications administered: 6 mg betamethasone acetate & sodium phosphate 6 mg/mL; 1 mL lidocaine 10 mg/mL (1 %) Aspirate amount: 0 mL Patient tolerance: patient tolerated the procedure wel l with no immediate complications after 11/07/2019 Advance Directives For more information, please contact: [phone] Type Date Recorded 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
--- OUTSIDE RECORDS SUMMARY | 2020-11-07 12:24 | XMS REPORT | Continuity of Care Document ---
:1985 Author Organization [facility] t Address [address] [place] [address] Care Team Providers Name Role Phone Fuad BRANHAM Primary Care Physician Liv Carranza MD. Attending Clinician Payers Payer Name Policy Type Policy Effective Date Expiration Date Sour ce Number BCBSANTHEM ANJALI [id number] 2017 [place] [id number] 00:00:00 Method[facility] t 04/2018-PresentPP O Problems Condition Condition Condition Status Onset Resolution Last Treating Co mments Source Name Details Category Date Date Treatment Clinician Date Strain of Strain of Disease Active Dwain ston left left 1-14 [facility] shoulder shoulder 00:00: st 00 Injury of Injury of Disease Active Dwain ston left left 1-14 [facility] shoulder shoulder 00:00: st 00 Allergies, Adverse Reactions, Alerts Allergy Allergy Status Severity Reaction(s) Onset Inactive Treating Comm ents Source Name Type Date Date Clinician Nsaids Propensi Active Other (See [place] (Non-David ty to Comments) 10-27 Metho di roidal adverse 00:00: st Anti-Inf reaction 00 lammator s to y Drug) drug Family History Family Member Diagnosis Comments Start Date Stop Date Source Natural father Diabetes [facility] Social History Social Habit Start Date Stop Date Quantity Comments Source Sex Assigned At [facility] [place] [place] ethodist Exposure to Not sure [place] Metho dist SARS-CoV-2 (event) Tobacco use and 2020-10-27 2020-10-[address] [facility] [place] [place] ethodist exposure 00:00:00 00:00:00 Alcohol intake 2020-10-27 2020-10-27 [facility] 00:00:00 00:00:00 non-drinker (finding) Smoking Status Start Date Stop Date Source Never smoker Banda María zambrano Medications Ordered Filled Start Stop Current Ordering Indication Dosage Frequency Signature Comments Components Source Medication Medication Date Date Medication? Clinician (SIG) Name Name acetaminoph 2020- No acute pain 1{tbl} Q6H Take 1-2 [place] en-codeine -20 tablets by Pa junior (TYLENOL 00:00: 23:[address] WITH 00 :00 every 6 CODEINE #3) (six) 300-30 mg hours as per tablet needed for moderate pain for up to 7 days .acute pain. omeprazole Yes [place] (PriLOSEC) 03-27 [facility] 40 MG 00:00: st capsule 00 Vital Signs Vital Name Observation Time Observation Value Comments Source Body height 2020-10-27 15:59:00 177.8 cm Solo Harris Body weight 2020-10-27 15:59:00 113.399 kg Solo Harris BMI 2020-10-27 15:59:00 35.87 kg/m2 Solo [facility] Procedures Procedure Date / Time Performing Clinician Source Performed XR SHOULDER 2+ VW LEFT 2020-10-27 16:09:04 Shravan Carranza on [facility] [place] ARTHROCENTESIS 2020-10-27 15:50:00 Shravan Carranza Pa néstor ASPIR&/INJ MAJOR JT/BURSA W/O US Plan of Care Planned Activity Planned Date Details Comments Source Future Scheduled 2020-05-15 INFLUENZA VACCINE Tomato n [facility] Test 00:00:00 [code = INFLUENZA VACCINE] Future Scheduled 2000 COVID-19 VACCINE (1 [place] [facility] Test 00:00:00 of 2) [code = COVID-19 VACCINE (1 of 2)] Encounters Start End Encounter Admission Attending Care Care Encounter Source Date/Time Date/Time Type Type Clinicians Facility Department ID 2020-10-27 2020-10-27 Outpatient HSRAVAN CARRANZA [facility] [id number] [place] 00:00:00 00:00:[address] 2020-10-27 2020-10-27 Outpatient SHRAVAN CARRANZA [facility] [id number] [place] 00:00:00 00:00:[address] Results Test Description Test Time Test Comments Results Result [facility] e Comments Shoulder left 2020-10-15 Shravan Carranza MD [place] cortisone 3 10/28/2020 10:29 [facility] injection 15:50:00 Matias left cortisone injectionConsent given by: patientSite marked: site markedTimeout: Immediately prior to procedure a time out was called to verify the correct patient, procedure, equipment, computer support specialist and site/side marked as required Supporting DocumentationIndicatio ns: pain Procedure DetailsPreparation: Patient was prepped and draped in the usual sterile fashionUltrasound guided: noLocation: shoulder - L subacromial bursa Left side:Needle size: 25 G (25 gauge)Approach: anterolateralLeft shoulder medications administered: 6 mg betamethasone acetate & sodium phosphate 6 mg/mL; 1 mL lidocaine 10 mg/mL (1 %)Aspirate amount: 0 mLPatient tolerance: patient tolerated the procedure well with no immediate complications
[2020-11-07 14:22] LABS: Absolute Lymphocytes (CBC) 1.3 K/uL (0.7-4.9); Basophils % 0.4 % (0-1.3); Hematocrit 42.1 % (39.6-49.0); Lymphocytes % 15.5 % (15.3-44.8); MPV 8.6 fL (7.6-11.3); RBC Red Blood Cell Count 4.64 M/uL (4.33-5.43)
[2020-11-07 14:36] LABS: Albumin 3.8 g/dL (3.4-5.0); Bilirubin Direct 0.1 mg/dL (0-0.2); Bilirubin Total 0.3 mg/dL (0.2-1.0); Potassium 3.7 mmol/L (3.5-5.1); Protein, Total 7.8 g/dL (6.4-8.2)
[2020-11-07] MEDS ORDERED: MORPHINE 4 MG/ML SYR ONE (14:36)
[2020-11-07] MEDS ORDERED: dexAMETHasone 10 MG/ML VIAL ONE (14:36)
[2020-11-07] MEDS ORDERED: ONDANSETRON 4 MG/2 ML VIAL ONE (14:36)
[2020-11-07] MEDS ORDERED: NA CHLORIDE 0.9% 1,000 ML ONE (14:36)
--- NOTE | 2020-11-07 15:30 | ER ---
Nurse's Notes [facility] Name: Slava Biswas Age: 35 yrs Sex: Male : 1985 Arrival Date: 11/07/2020 Time: 12:37 Bed 24 Private MD: Cecilio Merida Diagnosis: Unspecified abdominal pain-ulcerative colitis flare up Presentation: 11/07 12:43 Chief complaint: Patient states: I have flare up of me Ulcerative Colitis. I have pain ca1 on my lower R side that started this morning. Reports nausea and diarrhea. Denies fever. Coronavirus screen: Client denies travel out of the [place] in the last 14 days. diarrhea, nausea, Client presents with at least one sign or symptom that may indicate coronavirus-19. Standard/surgical mask placed on the client. Provider contacted for isolation considerations. Ebola Screen: Patient negative for fever greater than or equal to 101.5 degrees Fahrenheit, and additional compatible Ebola Virus Disease symptoms Patient denies exposure to infectious person. Patient denies travel to an Ebola-affected area in the 21 days before illness onset. No symptoms or risks identified at this time. Initial Sepsis Screen: Does the patient meet any 2 criteria? No. Patient's initial sepsis screen is negative. Does the patient have a suspected source of infection? No. Patient's initial sepsis screen is negative. Risk Assessment: Do you want to hurt yourself or someone else? Patient reports no desire to harm self or others. Onset of symptoms was November 07, 2020. 12:43 Method Of Arrival: Ambulatory ca1 12:43 Acuity: TRACEE 3 ca1 Historical: - Allergies: 12:46 No Known Allergies; ca1 - Home Meds: 12:46 Prilosec 40 mg Oral cpDR 1 cap 2 times per day [Active]; Probiotic Oral daily [Active]; ca1 mesalamine oral oral [Active]; - PMHx: 12:46 Colitis; GERD; ulcertive colitis; ca1 - PSHx: 12:46 Tonsillectomy; Hernia repair; deviated septum repair; ca1 - Immunization history:: Flu vaccine is not up to date. - Social history:: Smoking status: Patient denies any tobacco usage or history of. Screenin:40 Abuse screen: Denies threats or abuse. Denies injuries from another. Nutritional iw screening: No deficits noted. Tuberculosis screening: No symptoms or risk factors identified. Fall Risk None identified. Assessment: 14:41 General: Appears in no apparent distress. comfortable, Behavior is calm, cooperative. iw Pain: Complains of pain in right upper quadrant and right lower quadrant. Pain: Pain currently is 7 out of 10 on a pain scale. Neuro: Level of Consciousness is awake, alert, obeys commands, Oriented to person, place, time, situation, Moves all extremities. Full function. Cardiovascular: Patient's skin is warm and dry. Respiratory: Respiratory effort is even, unlabored, Respiratory pattern is regular, symmetrical. GI: Reports lower abdominal pain, upper abdominal pain. Derm: Skin is intact, is healthy with good turgor. Musculoskeletal: Range of motion: intact in all extremities. 16:00 Reassessment: Patient appears in no apparent distress at this time. Patient and/or iw family updated on plan of care and expected duration. Pain level reassessed. Patient is alert, oriented x 3, equal unlabored respirations, skin warm/dry/pink. Vital Signs: 12:43 Pulse 103; Resp 16 S; Temp 98.1(TE); Pulse Ox 100% on R/A; Weight 113.4 kg (R); Height ca1 5 ft. 10 in. (177.80 cm) (R); Pain 8/10; 12:46 BP 129 / 82; ca1 15:01 BP 125 / 82; Pulse 84; Resp 16; Temp 98.2; Pulse Ox 100% on R/A; iw 12:43 Body Mass Index 35.87 (113.40 kg, 177.80 cm) ca1 ED Course: 12:37 Patient arrived in ED. ag5 12:38 Cecilio Merida MD is Private Physician. ag5 12:42 [facility]comb [facility]C [facility] kb 12:42 Bacilio Newton MD is Attending Physician. kb 12:44 Triage completed. ca1 12:46 Arm band placed on right wrist. ca1 13:43 Luc Portillo NP is PHCP. pm1 13:43 Bacilio Newton MD is Attending Physician. pm1 14:01 Jolene Ware, RN is Primary Nurse. iw 14:10 Initial lab(s) drawn, by ny, sent to lab. Inserted saline lock: 20 gauge in left iw forearm, using aseptic technique. 14:41 Patient has correct armband on for positive identification. iw 15:29 Alonzo Castillo MD is Referral Physician. pm1 16:40 No provider procedures requiring assistance completed. IV discontinued, intact, iw bleeding controlled, No redness/swelling at site. Pressure dressing applied. Administered Medications: 14:28 Drug: NS 0.9% 1000 ml Route: IV; Rate: 1000 ml; Site: left forearm; iw 14:28 Drug: Decadron - Dexamethasone 10 mg Route: IVP; Site: left forearm; iw 14:28 Drug: morphine 4 mg Route: IVP; Site: left forearm; iw 14:29 Drug: Zofran (Ondansetron) 4 mg Route: IVP; Site: left forearm; iw 16:23 Drug: fentaNYL (PF) 50 mcg Route: IVP; Site: left forearm; iw Outcome: 15:30 Discharge ordered by MD. pm1 16:40 Discharged to home ambulatory. iw 16:40 Condition: good 16:40 Discharge instructions given to patient, Instructed on discharge instructions, follow up and referral plans. Demonstrated understanding of instructions, follow-up care. 16:41 Patient left the ED. iw Signatures: Veronica Holcomb, TIP FINISHER-C TIP FINISHER-CkJolene Nazario RN RN iw Luc Portillo, PRODUCTION TECHNICIAN PRODUCTION TECHNICIAN pm1 Vannessa Sanchez RN RN ca1 Rosita Hair ag5
--- NOTE | 2020-11-07 15:31 | EDPHYS ---
Physician Documentation [facility] Name: Slava Biswas Age: 35 yrs Sex: Male : 1985 Arrival Date: 11/07/2020 Time: 12:37 Bed 24 Private MD: Cecilio Merida ED Physician Bacilio Newton HPI: 11/07 13:53 This 35 yrs old Male presents to ER via Ambulatory with complaints of Rt Side pm1 Pain, Ulcerative Colitis Flare Up. 13:53 The patient presents with abdominal pain right lower quadrant. Onset: The pm1 symptoms/episode began/occurred this morning, at 04:00. The symptoms do not radiate. Associated signs and symptoms: none. Pertinent positives: diarrhea, nausea, Pertinent negatives: chest pain, dysuria, fever, shortness of breath, vomiting. The symptoms are described as crampy. Modifying factors: The symptoms are alleviated by nothing, the symptoms are aggravated by nothing. Severity of pain: in the emergency department the pain is actually worse. The patient has experienced similar episodes in the past, multiple times, and the symptoms today are exactly the same, to previous Ulcerative Coliltis flare up. The patient has been recently seen by a physician: Dr. Castillo. Recently started on mesalamine. Has a colonoscopy scheduled in 1-2 weeks with him. Historical: - Allergies: 12:46 No Known Allergies; ca1 - Home Meds: 12:46 Prilosec 40 mg Oral cpDR 1 cap 2 times per day [Active]; Probiotic Oral daily [Active]; ca1 mesalamine oral oral [Active]; - PMHx: 12:46 Colitis; GERD; ulcertive colitis; ca1 - PSHx: 12:46 Tonsillectomy; Hernia repair; deviated septum repair; ca1 - Immunization history:: Flu vaccine is not up to date. - Social history:: Smoking status: Patient denies any tobacco usage or history of. ROS: 13:53 Constitutional: Negative for fever, chills, and weight loss, Cardiovascular: Negative pm1 for chest pain, palpitations, and edema, Respiratory: Negative for shortness of breath, cough, wheezing, and pleuritic chest pain. 13:53 Back: Negative for injury and pain, : Negative for injury, bleeding, discharge, and swelling, MS/Extremity: Negative for injury and deformity, Skin: Negative for injury, rash, and discoloration, Neuro: Negative for headache, weakness, numbness, tingling, and seizure. 13:53 Abdomen/GI: Positive for abdominal pain, nausea, diarrhea, Negative for vomiting. Exam: 13:53 Constitutional: This is a well developed, well nourished patient who is awake, alert, pm1 and in no acute distress. Head/Face: Normocephalic, atraumatic. 13:53 Back: No spinal tenderness. No costovertebral tenderness. Full range of motion. Skin: Warm, dry with normal turgor. Normal color with no rashes, no lesions, and no evidence of cellulitis. MS/ Extremity: Pulses equal, no cyanosis. Neurovascular intact. Full, normal range of motion. 13:53 Cardiovascular: Exam negative for acute changes, Rate: normal, Rhythm: regular, Pulses: no pulse deficits are appreciated. 13:53 Respiratory: Exam negative for acute changes, respiratory distress, shortness of breath. 13:53 Abdomen/GI: Inspection: abdomen appears normal, Palpation: abdomen is soft and non-tender, in all quadrants. 13:53 Neuro: Exam negative for acute changes, Orientation: is normal, Mentation: is normal, Motor: is normal, moves all fours. Vital Signs: 12:43 Pulse 103; Resp 16 S; Temp 98.1(TE); Pulse Ox 100% on R/A; Weight 113.4 kg (R); Height ca1 5 ft. 10 in. (177.80 cm) (R); Pain 8/10; 12:46 BP 129 / 82; ca1 15:01 BP 125 / 82; Pulse 84; Resp 16; Temp 98.2; Pulse Ox 100% on R/A; iw 12:43 Body Mass Index 35.87 (113.40 kg, 177.80 cm) ca1 MDM: 13:43 Patient medically screened. pm1 14:22 Data reviewed: vital signs. 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 Patient understood . 16:41 ED course: Patient requested fentanyl patch prior to discharge. 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 Discussed with attending and he agrees. Will continue discharge with Bentyl and recommended follow up with GI and pain management. 11/07 13:52 Order name: Basic Metabolic Panel; Complete Time: 14:39 pm1 11/07 13:52 Order name: CBC with Diff; Complete Time: 14:28 pm1 11/07 13:52 Order name: Hepatic Function; Complete Time: 14:39 pm1 11/07 13:52 Order name: Lipase; Complete Time: 14:39 pm1 11/07 13:52 Order name: IV Saline Lock; Complete Time: 14:29 pm1 11/07 13:52 Order name: Labs collected and sent; Complete Time: 14:29 pm1 Administered Medications: 14:28 Drug: NS 0.9% 1000 ml Route: IV; Rate: 1000 ml; Site: left forearm; iw 14:28 Drug: Decadron - Dexamethasone 10 mg Route: IVP; Site: left forearm; iw 14:28 Drug: morphine 4 mg Route: IVP; Site: left forearm; iw 14:29 Drug: Zofran (Ondansetron) 4 mg Route: IVP; Site: left forearm; iw 16:23 Drug: fentaNYL (PF) 50 mcg Route: IVP; Site: left forearm; iw Disposition: 17:49 Co-signature as Attending Physician, Bacilio Newton MD. rn Disposition: 11/07/20 15:30 Discharged to Home. Impression: Unspecified abdominal pain - ulcerative colitis flare up. - Condition is Stable. - Discharge Instructions: Abdominal Pain, Adult, Ulcerative Colitis, Adult. - Prescriptions for Zofran ODT 4 mg Oral tablet,disintegrating - place 1 tablet by TRANSLINGUAL route every 8 hours As needed; 12 tablet. Bentyl 20 mg Oral Tablet - take 1 tablet by ORAL route every 6 hours As needed; 20 tablet. Medrol (Thee) 4 mg Oral Tablets, Dose Pack - take 1 tablet by ORAL route as directed - follow package instructions; 1 packet. - Medication Reconciliation Form, Thank You Letter, Antibiotic Education, Prescription Opioid Use form. - Follow up: Emergency Department; When: As needed; Reason: Worsening of condition. Follow up: Alonzo Castillo MD; When: 2 - 3 days; Reason: Recheck today's complaints, Continuance of care, Re-evaluation by your physician. - Problem is new. - Symptoms have improved. Signatures: Dispatcher [employer] EDJolene Beard RN RN iw Bacilio Newton MD MD rn Marinas, Patrick, METAL FURRER METAL FURRER pm1 Vannessa Sanchez RN RN ca1 Corrections: (The following items were deleted from the chart) 14:06 13:53 Associated signs and symptoms: none. Pertinent negatives: nausea, vomiting, and pm1 diarrhea, chest pain, dysuria, fever, shortness of breath, pm1 16:41 15:30 11/07/2020 15:30 Discharged to Home. Impression: Unspecified abdominal pain - iw ulcerative colitis flare up. Condition is Stable. Forms are Medication Reconciliation Form, Thank You Letter, Antibiotic Education, Prescription Opioid Use. Follow up: Emergency Department; When: As needed; Reason: Worsening of condition. Follow up: Alonzo Castillo; When: 2 - 3 days; Reason: Recheck today's complaints, Continuance of care, Re-evaluation by your physician. Problem is new. Symptoms have improved. pm1
[2020-11-07] MEDS ORDERED: FENTANYL CITR 100 MCG/2 ML ONE (16:31)
[2020-11-07 16:49] VITALS: O2SAT 100
[2020-11-07 16:51] VITALS: BP 125/82; TEMP 98.2
== END 2020-11-07 16:41 | disposition home or self-care (01) ==
LOC: ER 12:21
DX: K51.90 Ulcerative colitis, unspecified, without complications (principal); K21.9 Gastro-esophageal reflux disease without esophagitis
CPT/HCPCS: 85025; 80048; 36415; 80076; 83690; 96375; 96374; 99283; J3010; J1100; J7030; J2405

== ENCOUNTER 2020-11-20 11:40 | Emergency (ER) | payer BC ==
--- OUTSIDE RECORDS SUMMARY | 2020-11-20 11:42 | XMS REPORT | Clinical Summary ---
:1985 Author Organization [facility] Address [address] [place] [address] Care Team Providers Name Role Phone Cecilio [...] pain up to 7 days .acute pain. acetaminophen-codein Take 1 tablet by 28 tablet 0 11/09/2020 0 11/16/2020 e (TYLENOL WITH mouth every 6 CODEINE #3) 300-30 (six) hours as mg per needed for tabletIndications: moderate pain for acute pain up to 7 days .acute pain. Active Problems Problem Noted Date Strain of left shoulder 10/28/2020 Injury of left shoulder 10/28/2020 Encounters Date Type Specialty Care Team Description 11/10/2020 Refill Orthopedic Surgery Armen Carranza MD Stra in of left shoulder, initial encount er 11/09/2020 Orders Only Orthopedic Surgery Armen Carranza MD Stra in of left shoulder, initial encount er (Primary Dx) 11/08/2020 Refill Orthopedic Armen Cardoso MD 11/08/2020 Refill Orthopedic Armen Cardoso MD 10/27/2020 Office Visit Orthopedic Surgery Armen Carranza MD Stra in of left shoulder, initial encounter (Primary Dx); Injury of left shoulder, initial encounter 10/27/2020 Travel after 11/20/2019 Surgical History Surgery Date Site/Laterality Comments ABDOMINAL SURGERY Hernia repair 1999 ORTHOPEDIC SURGERY 10/15/2011 - 10/14/2012 Right raymundo sexton rotator cuff Medical History Medical History Date [...] with No / Unsure 10/27/2020 1:54 PM [employer] someone who was confirmed or suspected to have Coronavirus / COVID-19? Last Filed Vital Signs Vital Sign Reading Time Taken Comments Blood Pressure - - Pulse - - Temperature - - Respiratory Rate - - Oxygen Saturation - - Inhaled Oxygen Concentration - - Weight 113 kg (250 lb) 10/27/2020 3:59 PM [employer] Height 177.8 cm (5' 10") 10/27/2020 3:59 PM [employer] Body Mass Index 35.87 10/27/2020 3:59 PM [employer] Plan of Treatment Health Maintenance Due Date Last Done Comments COVID-19 VACCINE (1 of 2) 2000 HEPATITIS C SCREENING 2002 INFLUENZA VACCINE 05/15/2020 Procedures Procedure Name Priority Date/Time Associated Comments Diagnosis XR SHOULDER 2+ VW LEFT Routine 10/27/2020 4:09 Injury of left Results for this PM [employer] shoulder, initial procedure are in encounter the results section. [place] ARTHROCENTESIS Routine 10/27/2020 3:50 Strain of left Resu lts for this ASPIR&/INJ MAJOR PM [employer] shoulder, initial proced ure are in JT/BURSA W/O US encounter the results section. after 11/20/2019 Results XR Shoulder 2+ Vw Left (10/27/2020 4:09 PM [employer]) Specimen Narrative Performed At This result has an attachment that is no t available. Normal bony architecture YVES Performing Organization Address City/State/ZIP Code Phon e Number [facility] [address] [place] [address] Shoulder left cortisone injection (10/27/2020 3:50 PM [employer]) Narrative Performed At Armen Carranza MD 10/28/2020 10:29 AM Shoulder left cortisone injection Consent given by: patient Site marked: site marked Timeout: Immediately prior to procedure a time out was called to verify the correct patient, procedure, equipmen t, community support specialist and site/side marked as required Supporting Documentation [...] wel l with no immediate complications after 11/20/2019 Advance Directives For more information, please contact: [phone] Type Date Recorded Patient 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
--- OUTSIDE RECORDS SUMMARY | 2020-11-20 11:43 | XMS REPORT | Continuity of Care Document ---
:1985 Author Organization [facility] t Address [address] [place] [address] Care Team Providers Name Role Phone Fuad BRANHAM Primary Care Physician Liv Carranza MD. Attending Clinician Payers Payer Name Policy Type Policy Effective Date Expiration Date Sour ce Number BCBSANTHEM ANJALI [id number] 2017 [place] [id number]/ 00:00:00 Methodis t 04/2018-PresentPP O Problems Condition [...] Date Stop Date Source Natural father Diabetes [facility] thodist Social History Social Habit Start Date Stop Date Quantity Comments Source Sex Assigned At [facility] ethodist Exposure to Not sure [place] Metho dist SARS-CoV-2 (event) Tobacco use and 2020-10-27 2020-10-27 Never used [facility] ethodist exposure 00:00:00 00:00:00 Alcohol intake 2020-10-27 2020-10-27 Lifetime [facility] thodist 00:00:00 00:00:00 non-drinker (finding) Smoking Status Start Date Stop Date Source Never smoker Solo zambrano Medications Ordered Filled Start Stop Current Ordering Indication Dosage Frequency Signature Comments Components Source Medication Medication Date Date Medication? Clinician (SIG) Name Name maggie 2020- No acute pain 1{tbl} Q6H Take 1 [place] en-codeine 11-09 tablet by Met sherman (TYLENOL 00:00: 23:[address] WITH 00 :00 every 6 CODEINE #3) (six) 300-30 mg hours as per tablet needed for moderate pain for up to 7 days .acute pain. maggie 2020- No acute pain 1{tbl} Q6H Take 1-2 Banda en-codeine 10-27 tablets by Me pacheco (TYLENOL 00:00: 23:[address] WITH 00 :00 every 6 CODEINE #3) (six) 300-30 mg hours as per tablet needed for moderate pain for up to 7 days .acute pain. omeprazole Yes Banda (PriLOSEC) 03-27 Methodi 40 MG 00:00: st capsule 00 Vital Signs Vital Name Observation Time Observation Value Comments Source Body height 2020-10-27 15:59:00 177.8 cm Solo Harris Body weight 2020-10-27 15:59:00 113.399 kg Solo Harris BMI 2020-10-27 15:59:00 35.87 kg/m2 Solo [facility] Procedures Procedure Date / Time Performing Clinician Source Performed XR SHOULDER 2+ VW LEFT 2020-10-27 16:09:04 Shravan Carranza on [facility] [place] ARTHROCENTESIS 2020-10-27 15:50:00 Shravan Carranza Ok néstor ASPIR&/INJ MAJOR JT/BURSA W/O US Plan of Care Planned Activity Planned Date Details Comments Source Future Scheduled 2020-05-15 INFLUENZA VACCINE [facility] 00:00:00 [code = INFLUENZA VACCINE] Future Scheduled 2002 Hepatitis C Solo muller Test 00:00:00 screening (procedure) [code = 234114618] Future Scheduled 2000 COVID-19 VACCINE (1 [place] [facility] Test 00:00:00 of 2) [code = COVID-19 VACCINE (1 of 2)] Encounters Start End Encounter Admission Attending Care Care Encounter Source Date/Time Date/Time Type Type Clinicians Facility Department ID 2020-10-27 2020-10-27 Outpatient SHRAVAN CARRANZA [facility] [id number] [place] 00:00:00 00:00:[address] 2020-10-27 2020-10-27 Outpatient SHRAVAN CARRANZA [facility] [id number] [place] 00:00:00 00:00:[address] Results Test Description Test Time Test Comments Results Result Sourc e Comments Shoulder left 2020-10-15 Shravan Carranza MD [place] cortisone 3 10/28/2020 10:29 [facility] injection 15:50:00 AMShoulder left cortisone injectionConsent given by: patientSite marked: site markedTimeout: Immediately prior to procedure a time out was called to verify the correct patient, procedure, equipment, phlebotomy support tech and site/side marked as required Supporting DocumentationIndicatio [...]
[2020-11-20] MEDS ORDERED: MORPHINE 4 MG/ML SYR ONE (12:20)
[2020-11-20 12:21] LABS: Absolute Lymphocytes (CBC) 1.3 K/uL (0.7-4.9); Basophils % 0.4 % (0-1.3); Hematocrit 42.6 % (39.6-49.0); Lymphocytes % 12.9 % (15.3-44.8); MPV 8.4 fL (7.6-11.3); RBC Red Blood Cell Count 4.71 M/uL (4.33-5.43)
[2020-11-20] MEDS ORDERED: NA CHLORIDE 0.9% 1,000 ML ONE (12:21)
[2020-11-20] MEDS ORDERED: ONDANSETRON 4 MG/2 ML VIAL ONE (12:21)
[2020-11-20 12:39] LABS: ALT/SGPT 48 U/L (12-78); AST/SGOT 14 U/L (15-37); Albumin 3.6 g/dL (3.4-5.0); Alkaline Phosphatase 92 U/L (45-117); BUN Blood Urea Nitrogen 13 mg/dL (7-18); Bicarbonate 29 mmol/L (21-32); Bilirubin Direct < 0.1 mg/dL (0-0.2); Bilirubin Total 0.6 mg/dL (0.2-1.0); Glucose Level 105 mg/dL (74-106); Lipase 187 U/L (73-393); Potassium 4.1 mmol/L (3.5-5.1); Protein, Total 7.2 g/dL (6.4-8.2); Sodium Level 145 mmol/L (136-145)
[2020-11-20] MEDS ORDERED: HYDROMORPHONE HCL 0.5 MG/0.5 ML INJ ONE (13:15)
--- NOTE | 2020-11-20 14:10 | ER ---
Nurse's Notes [facility] Name: Slava Biswas Age: 35 yrs Sex: Male : 1985 Arrival Date: 11/20/2020 Time: 11:42 Bed 7 Private MD: Cecilio Merida Diagnosis: Lower abdominal pain, unspecified Presentation: 11/20 11:53 Chief complaint: Patient states: UC FLARE UP. Coronavirus screen: At this time, the bp client does not indicate any symptoms associated with coronavirus-19. Ebola Screen: No symptoms or risks identified at this time. Initial Sepsis Screen: Does the patient meet any 2 criteria? HR > 90 bpm. No. Patient's initial sepsis screen is negative. Does the patient have a suspected source of infection? No. Patient's initial sepsis screen is negative. Risk Assessment: Do you want to hurt yourself or someone else? Patient reports no desire to harm self or others. Onset of symptoms was November 20, 2020 at 03:30. 11:53 Method Of Arrival: Ambulatory bp 11:53 Acuity: TRACEE 3 bp Triage Assessment: 11:55 General: Appears distressed, uncomfortable, obese, Behavior is cooperative, appropriate bp for age, anxious. Pain: Complains of pain in right lower quadrant. EENT: No deficits noted. Neuro: No deficits noted. Cardiovascular: No deficits noted. Respiratory: No deficits noted. GI: Reports lower abdominal pain, diarrhea. : No signs and/or symptoms were reported regarding the genitourinary system. Derm: No deficits noted. Musculoskeletal: No deficits noted. Historical: - Allergies: 11:55 No Known Allergies; bp - Home Meds: 11:55 mesalamine Oral [Active]; Prilosec 40 mg Oral cpDR 1 cap 2 times per day [Active]; bp Probiotic Oral daily [Active]; - PMHx: 11:55 Colitis; GERD; ulcertive colitis; bp - Immunization history:: Adult Immunizations up to date. - Social history:: Smoking status: Patient denies any tobacco usage or history of. Screenin:57 Abuse screen: Denies threats or abuse. Denies injuries from another. Nutritional bp screening: No deficits noted. Tuberculosis screening: No symptoms or risk factors identified. Fall Risk None identified. Assessment: 11:57 General: SEE TRIAGE NOTE. bp 13:00 Reassessment: No changes from previously documented assessment. Patient and/or family bp updated on plan of care and expected duration. Pain level reassessed. Patient is alert, oriented x 3, equal unlabored respirations, skin warm/dry/pink. 14:41 Reassessment: PT D/C HOME AMBULATORY, DX WITH LOWER ABDOMINAL PAIN. bp Vital Signs: 11:53 BP 128 / 82; Pulse 120; Resp 17; Temp 97.6; Pulse Ox 100% ; Weight 113.4 kg; Height 5 bp ft. 10 in. (177.80 cm); 13:00 BP 127 / 93; Pulse 95; Resp 16; Pulse Ox 99% ; bp 14:00 BP 137 / 106; Pulse 94; Resp 17; Pulse Ox 100% ; bp 14:42 BP 131 / 105; Pulse 93; Resp 16; Pulse Ox 98% ; bp 11:53 Body Mass Index 35.87 (113.40 kg, 177.80 cm) bp ED Course: 11:42 Patient arrived in ED. ag5 11:42 [facility]es [facility] jm 11:42 Bacilio Newton MD is Attending Physician. [facility] 11:43 Cecilio Merida MD is Private Physician. ag5 11:48 Brittny Zepeda, HARSHA is Primary Nurse. jl7 11:54 Triage completed. bp 11:55 Arm band placed on. bp 11:57 Patient has correct armband on for positive identification. Bed in low position. Call bp light in reach. Side rails up X2. 12:10 Inserted saline lock: 20 gauge in right forearm, using aseptic technique. Blood bp collected. 13:07 Candido Weaver, HARSHA is Primary Nurse. bp 14:09 Cecilio Merida MD is Referral Physician. jm 14:42 No provider procedures requiring assistance completed. IV discontinued, intact, bp bleeding controlled, No redness/swelling at site. Pressure dressing applied. Administered Medications: 12:13 Drug: NS 0.9% 1000 ml Route: IV; Rate: 1 bolus; Site: right forearm; bp 14:44 Follow up: IV Status: Completed infusion; IV Intake: 1000ml bp 12:13 Drug: morphine 4 mg Route: IVP; Site: right forearm; bp 13:08 Follow up: Response: No adverse reaction bp 12:13 Drug: Zofran (Ondansetron) 4 mg Route: IVP; Site: right forearm; bp 13:08 Follow up: Response: No adverse reaction bp 13:00 Drug: Dilaudid 0.5 mg Route: IVP; Site: right forearm; bp 14:03 Follow up: Response: No adverse reaction; Pain is decreased bp 14:00 Drug: Dilaudid 1 mg Route: IVP; Site: right forearm; bp 14:46 Follow up: Response: Pain is decreased bp Intake: 14:44 IV: 1000ml; Total: 1000ml. bp Outcome: 14:10 Discharge ordered by . sonu 14:42 Discharged to home ambulatory, with family. bp 14:42 Condition: stable 14:42 Discharge instructions given to patient, Instructed on discharge instructions, follow up and referral plans. medication usage, Demonstrated understanding of instructions, follow-up care, medications, Prescriptions given X 3. 14:49 Patient left the ED. bp Signatures: Florentino Georges PA PA jmm Leal, Jahala RN RN jl7 Candido Weaver RN RN bp Rosita Hair ag5
--- NOTE | 2020-11-20 14:10 | EDPHYS ---
Physician Documentation [facility] Name: Slava Biswas Age: 35 yrs Sex: Male : 1985 Arrival Date: 11/20/2020 Time: 11:42 Bed 7 Private MD: Cecilio Merida ED Physician Bacilio Newton HPI: 11/20 12:06 This 35 yrs old Male presents to ER via Ambulatory with complaints of jmm Abdominal Pain, Ulcerative Colitis Flare Up. 12:06 The patient presents with abdominal pain. Onset: The symptoms/episode began/occurred jmm gradually, this morning. The symptoms do not radiate. Associated signs and symptoms: Pertinent positives: diarrhea, nausea, Pertinent negatives: vomiting. The symptoms are described as achy. Modifying factors: The symptoms are alleviated by nothing, the symptoms are aggravated by. The patient has experienced similar episodes in the past, several times. Patient states the pain is similar in character and in the same location as previous crohns flare ups. . Historical: - Allergies: 11:55 No Known Allergies; bp - Home Meds: 11:55 mesalamine Oral [Active]; Prilosec 40 mg Oral cpDR 1 cap 2 times per day [Active]; bp Probiotic Oral daily [Active]; - PMHx: 11:55 Colitis; GERD; ulcertive colitis; bp - Immunization history:: Adult Immunizations up to date. - Social history:: Smoking status: Patient denies any tobacco usage or history of. ROS: 12:06 Constitutional: Negative for fever, chills, and weight loss, Cardiovascular: Negative jmm for chest pain, palpitations, and edema, Respiratory: Negative for shortness of breath, cough, wheezing, and pleuritic chest pain. 12:06 Abdomen/GI: Positive for abdominal pain. 12:06 All other systems are negative. Exam: 12:06 Constitutional: This is a well developed, well nourished patient who is awake, alert, jmm and in no acute distress. Head/Face: atraumatic. Eyes: EOMI, no conjunctival erythema appreciated ENT: Moist Mucus Membranes Neck: Trachea midline, Supple Chest/axilla: Normal chest wall appearance and motion. Cardiovascular: Regular rate and rhythm. No edema appreciated Respiratory: Normal respirations, no respiratory distress appreciated Abdomen/GI: Non distended, soft Back: Normal ROM Skin: General appearance color normal MS/ Extremity: Moves all extremities, no obvious deformities appreciated, no edema noted to the lower extremities Neuro: Awake and alert, normal gait Psych: Behavior is normal, Mood is normal, Patient is cooperative and pleasant 12:06 Abdomen/GI: Palpation: nontender, mild abdominal tenderness, in the right lower quadrant. Vital Signs: 11:53 BP 128 / 82; Pulse 120; Resp 17; Temp 97.6; Pulse Ox 100% ; Weight 113.4 kg; Height 5 bp ft. 10 in. (177.80 cm); 13:00 BP 127 / 93; Pulse 95; Resp 16; Pulse Ox 99% ; bp 14:00 BP 137 / 106; Pulse 94; Resp 17; Pulse Ox 100% ; bp 14:42 BP 131 / 105; Pulse 93; Resp 16; Pulse Ox 98% ; bp 11:53 Body Mass Index 35.87 (113.40 kg, 177.80 cm) bp MDM: 11:58 Patient medically screened. [facility] 12:08 Data reviewed: vital signs, nurses notes. [facility] 14:08 Counseling: I had a detailed discussion with the patient and/or guardian regarding: the [facility] historical points, exam findings, and any diagnostic results supporting the discharge/admit diagnosis, lab results, the need for outpatient follow up, to return to the emergency department if symptoms worsen or persist or if there are any questions or concerns that arise at home. ED course: Risks and benefits discussed with the patient regaurding ct imaging. Pain is similar to previous episodes. I do not suspect appendicitis. Patient is advised to return to the ED if symptoms worsen. Patient understood and agrees with the plan of care. . 02 12:01 Order name: Basic Metabolic Panel; Complete Time: 12:40 [facility] 11/20 12:01 Order name: CBC with Diff; Complete Time: 12:45 [facility] 11/20 12:01 Order name: Hepatic Function; Complete Time: 12:40 [facility] 11/20 12:01 Order name: Lipase; Complete Time: 12:40 [facility] 11/20 12:01 Order name: IV Saline Lock; Complete Time: 12:14 [facility] 11/20 12:01 Order name: Labs collected and sent; Complete Time: 12:14 [facility] Administered Medications: 12:13 Drug: NS 0.9% 1000 ml Route: IV; Rate: 1 bolus; Site: right forearm; bp 14:44 Follow up: IV Status: Completed infusion; IV Intake: 1000ml bp 12:13 Drug: morphine 4 mg Route: IVP; Site: right forearm; bp 13:08 Follow up: Response: No adverse reaction bp 12:13 Drug: Zofran (Ondansetron) 4 mg Route: IVP; Site: right forearm; bp 13:08 Follow up: Response: No adverse reaction bp 13:00 Drug: Dilaudid 0.5 mg Route: IVP; Site: right forearm; bp 14:03 Follow up: Response: No adverse reaction; Pain is decreased bp 14:00 Drug: Dilaudid 1 mg Route: IVP; Site: right forearm; bp 14:46 Follow up: Response: Pain is decreased bp Disposition: 15:17 Co-signature as Attending Physician, Bacilio Newton MD. rn Disposition: 11/20/20 14:10 Discharged to Home. Impression: Lower abdominal pain, unspecified. - Condition is Stable. - Discharge Instructions: Abdominal Pain, Adult. - Prescriptions for Cipro 500 mg Oral Tablet - take 1 tablet by ORAL route every 12 hours for 10 days; 20 tablet. Flagyl 500 mg Oral Tablet - take 1 tablet by ORAL route every 6 hours for 10 days; 40 tablet. Zofran ODT 4 mg Oral tablet,disintegrating - place 1 tablet by TRANSLINGUAL route every 4-6 hours; 20 tablet. Tylenol- Codeine #3 300-30 mg Oral Tablet - take 1 tablet by ORAL route every 6 hours As needed; 20 tablet. - Medication Reconciliation Form, Thank You Letter, Antibiotic Education, Prescription Opioid Use form. - Follow up: Cecilio Merida MD; When: 2 - 3 days; Reason: Recheck today's complaints, Continuance of care, Re-evaluation by your physician. Signatures: Dispatcher [employer] EDMS Florentino Georges PA PA jmm Nieto, Roman, MD MD rn Peltier, Brian, RN RN bp Corrections: (The following items were deleted from the chart) 14:49 14:10 11/20/2020 14:10 Discharged to Home. Impression: Lower abdominal pain, bp unspecified. Condition is Stable. Forms are Medication Reconciliation Form, Thank You Letter, Antibiotic Education, Prescription Opioid Use. Follow up: Cecilio Merida; When: 2 - 3 days; Reason: Recheck today's complaints, Continuance of care, Re-evaluation by your physician. sonu
[2020-11-20] MEDS ORDERED: HYDROMORPHONE HCL 1 MG/ML INJ ONE (14:16)
[2020-11-20 14:54] VITALS: TEMP 97.6
[2020-11-20 14:57] VITALS: BP 131/105; O2SAT 98
== END 2020-11-20 14:49 | disposition home or self-care (01) ==
LOC: ER 11:40
DX: R10.30 Lower abdominal pain, unspecified (principal)
CPT/HCPCS: 96361; 85025; 80048; 36415; 80076; 83690; 96375; 96374; 99284; J1170 ×2; J7030; J2405

== ENCOUNTER 2020-11-29 14:09 | Emergency (ER) | payer BC ==
[2020-11-29 21:10] LABS: Absolute Lymphocytes (CBC) 2.9 K/uL (0.7-4.9); Basophils % 0.5 % (0-1.3); Hematocrit 46.1 % (39.6-49.0); Lymphocytes % 19.6 % (15.3-44.8); MPV 8.7 fL (7.6-11.3); RBC Red Blood Cell Count 5.12 M/uL (4.33-5.43)
[2020-11-29] MEDS ORDERED: NA CHLORIDE 0.9% 1,000 ML ONE (21:10)
[2020-11-29 21:21] LABS: Albumin 4.2 g/dL (3.4-5.0); Bilirubin Direct 0.1 mg/dL (0-0.2); Bilirubin Total 0.6 mg/dL (0.2-1.0); Potassium 3.5 mmol/L (3.5-5.1); Protein, Total 8.4 g/dL (6.4-8.2)
[2020-11-29] MEDS ORDERED: metroNIDAZOLE 500 MG TABLET ONE (21:33)
[2020-11-29] MEDS ORDERED: MORPHINE 4 MG/ML SYR ONE ×2 (21:34→23:03)
[2020-11-29] MEDS ORDERED: CIPROFLOXACIN HCL 500 MG TAB ONE (21:34)
[2020-11-29] MEDS ORDERED: ONDANSETRON 4 MG/2 ML VIAL ONE (21:34)
[2020-11-29] MEDS ORDERED: METHYLPREDNISOLONE 125 MG INJ ONE (22:30)
--- NOTE | 2020-11-29 23:31 | ER ---
Nurse's Notes [facility] Name: Slava Biswas Age: 35 yrs Sex: Male : 1985 Arrival Date: 11/29/2020 Time: 14:11 Bed 24 Private MD: Diagnosis: Abdominal and pelvic pain;Ulcerative Coitis Flare Presentation: 11/29 14:33 Chief complaint: Patient states: "UC flare up." Nausea, diarrhea and lower abd pain ss that began last night.". Coronavirus screen: Client denies travel out of the [place] in the last 14 days. Ebola Screen: Patient denies exposure to infectious person. Patient denies travel to an Ebola-affected area in the 21 days before illness onset. Initial Sepsis Screen: Does the patient meet any 2 criteria? HR > 90 bpm. No. Patient's initial sepsis screen is negative. Does the patient have a suspected source of infection? No. Patient's initial sepsis screen is negative. Risk Assessment: Do you want to hurt yourself or someone else? Patient reports no desire to harm self or others. Onset of symptoms was November 28, 2020. 14:33 Method Of Arrival: Ambulatory ss 14:33 Acuity: TRACEE 3 ss Triage Assessment: 21:00 General: Appears in no apparent distress. Behavior is calm, cooperative, appropriate ll2 for age. Historical: - Allergies: 14:35 No Known Allergies; ss - PMHx: 14:35 Colitis; GERD; ulcertive colitis; ss - PSHx: 14:35 Hernia repair; deviated septum repair; Tonsillectomy; ss - Immunization history:: Adult Immunizations up to date. - Social history:: Smoking status: Patient denies any tobacco usage or history of. Screenin:30 Abuse screen: Denies threats or abuse. Nutritional screening: No deficits noted. ll2 Tuberculosis screening: No symptoms or risk factors identified. Fall Risk None identified. Assessment: 20:45 General: Appears in no apparent distress. Behavior is calm, cooperative, appropriate ll2 for age. Pain: Complains of pain in right lower quadrant and right upper quadrant. Neuro: Level of Consciousness is awake, alert, obeys commands, Oriented to person, place, time, situation. Cardiovascular: Patient's skin is warm and dry. Respiratory: Airway is patent Respiratory effort is even, unlabored, Respiratory pattern is regular, symmetrical. GI: Bowel sounds present X 4 quads. Abd is soft X 4 quads. Derm: Skin is intact, is healthy with good turgor, Skin is dry, Skin is pink, warm \\T\\ dry. Musculoskeletal: Circulation, motion, and sensation intact. Range of motion: intact in all extremities. 21:40 Reassessment: Patient and/or family updated on plan of care and expected duration. Pain ll2 level reassessed. Patient is alert, oriented x 3, equal unlabored respirations, skin warm/dry/pink. 22:45 Reassessment: Patient and/or family updated on plan of care and expected duration. Pain ll2 level reassessed. Patient is alert, oriented x 3, equal unlabored respirations, skin warm/dry/pink. Vital Signs: 14:33 BP 128 / 96; Resp 15; Temp 98.8(TE); Pulse Ox 100% on R/A; Weight 113.4 kg; Height 5 ss ft. 10 in. (177.80 cm); Pain 7/10; 14:33 Body Mass Index 35.87 (113.40 kg, 177.80 cm) ss ED Course: 14:11 Patient arrived in ED. rg4 14:34 Triage completed. ss 14:35 Arm band placed on right wrist. ss 20:30 Patient has correct armband on for positive identification. Placed in gown. Bed in low ll2 position. Call light in reach. Side rails up X 1. Pulse ox on. NIBP on. 20:30 No provider procedures requiring assistance completed. ll2 20:33 Sinan Cole MD is Attending Physician. kdr 20:52 Inserted saline lock: 20 gauge in right antecubital area, using aseptic technique. dh4 Blood collected. 22:12 Vianey Mackenzie, HARSHA is Primary Nurse. ll2 Administered Medications: 21:17 Drug: Zofran (Ondansetron) 4 mg Route: IVP; Site: right antecubital; em 22:00 Follow up: Response: No adverse reaction ll2 21:19 Drug: NS 0.9% 1000 ml Route: IV; Rate: 1 bolus; Site: right antecubital; em 22:20 Follow up: Response: No adverse reaction; IV Status: Completed infusion; IV Intake: ll2 1000ml 21:19 Drug: Flagyl 500 mg Route: PO; em 22:00 Follow up: Response: No adverse reaction ll2 21:19 Drug: Cipro 500 mg Route: PO; em 23:00 Follow up: Response: No adverse reaction ll2 21:20 Drug: morphine 4 mg Route: IVP; Site: right antecubital; em 22:00 Follow up: Response: No adverse reaction ll2 22:00 Drug: SOLU-Medrol 125 mg Route: IVP; Site: right antecubital; ll2 23:00 Follow up: Response: No adverse reaction ll2 22:51 Drug: morphine 4 mg Route: IVP; Site: right antecubital; ll2 23:40 Follow up: Response: No adverse reaction; RASS: Alert and Calm (0) ll2 23:42 Drug: Demerol 25 mg Route: IVP; Site: right antecubital; sg Intake: 22:20 IV: 1000ml; Total: 1000ml. ll2 Outcome: 23:31 Discharge ordered by . mary jo 11/30 00:23 Patient left the ED. ll2 Signatures: Greg Pedro RN Sinan Hunt MD MD kdr Munoz, Edgar, RN RN em Smirch, Shelby, RN RN ss Garcia, Rubi 4 Roc Bliss 4 Vianey Mackenzie RN RN 2
--- NOTE | 2020-11-29 23:31 | EDPHYS ---
Physician Documentation [facility] Name: Slava Biswas Age: 35 yrs Sex: Male : 1985 Arrival Date: 11/29/2020 Time: 14:11 Bed 24 Private MD: ED Physician Sinan Cole HPI: 11/29 20:53 This 35 yrs old Male presents to ER via Ambulatory with complaints of kdr Abdominal Pain. 20:53 The patient presents with abdominal pain in the right upper quadrant, right lower kdr quadrant. Onset: The symptoms/episode began/occurred acutely, last night. The symptoms do not radiate. Associated signs and symptoms: Pertinent positives: blood in stools, diarrhea. The symptoms are described as achy, constant, crampy, steady. Modifying factors: The symptoms are alleviated by nothing, the symptoms are aggravated by. Severity of pain: At its worst the pain was a 8 / 10 in the emergency department the pain is unchanged. The patient has experienced similar episodes in the past, multiple times, chronically. 20:55 This is the patient's third visit for 2020. kdr Historical: - Allergies: 14:35 No Known Allergies; ss - PMHx: 14:35 Colitis; GERD; ulcertive colitis; ss - PSHx: 14:35 Hernia repair; deviated septum repair; Tonsillectomy; ss - Immunization history:: Adult Immunizations up to date. - Social history:: Smoking status: Patient denies any tobacco usage or history of. ROS: 20:55 Constitutional: Negative for fever, chills, and weight loss, Eyes: Negative for injury, kdr pain, redness, and discharge, ENT: Negative for injury, pain, and discharge, Neck: Negative for injury, pain, and swelling, Cardiovascular: Negative for chest pain, palpitations, and edema, Respiratory: Negative for shortness of breath, cough, wheezing, and pleuritic chest pain, Back: Negative for injury and pain, : Negative for injury, bleeding, discharge, and swelling, MS/Extremity: Negative for injury and deformity, Skin: Negative for injury, rash, and discoloration, Neuro: Negative for headache, weakness, numbness, tingling, and seizure activity. Psych: Negative for depression, anxiety, suicide ideation, homicidal ideation, and hallucinations, Allergy/Immunology: Negative for hives, rash, and allergies, Endocrine: Negative for neck swelling, polydipsia, polyuria, polyphagia, and marked weight changes, Hematologic/Lymphatic: Negative for swollen nodes, abnormal bleeding, and unusual bruising. 20:55 Abdomen/GI: Positive for abdominal pain, nausea, rectal bleeding, Negative for abdominal distension, anorexia, dysphagia, hematemesis, black/tarry stool, rectal pain. Exam: 20:55 Constitutional: This is a well developed, well nourished patient who is awake, alert, kdr and in no acute distress. Head/Face: Normocephalic, atraumatic. Eyes: Pupils equal round and reactive to light, extra-ocular motions intact. Lids and lashes normal. Conjunctiva and sclera are non-icteric and not injected. Cornea within normal limits. Periorbital areas with no swelling, redness, or edema. Neck: Trachea midline, no thyromegaly or masses palpated, and no cervical lymphadenopathy. Supple, full range of motion without nuchal rigidity, or vertebral point tenderness. No Meningismus. Chest/axilla: Normal chest wall appearance and motion. Nontender with no deformity. No lesions are appreciated. Cardiovascular: Regular rate and rhythm with a normal S1 and S2. No gallops, murmurs, or rubs. Normal PMI, no JVD. No pulse deficits. Respiratory: Lungs have equal breath sounds bilaterally, clear to auscultation and percussion. No rales, rhonchi or wheezes noted. No increased work of breathing, no retractions or nasal flaring. Back: No spinal tenderness. No costovertebral tenderness. Full range of motion. Skin: Warm, dry with normal turgor. Normal color with no rashes, no lesions, and no evidence of cellulitis. MS/ Extremity: Pulses equal, no cyanosis. Neurovascular intact. Full, normal range of motion. Neuro: Awake and alert, GCS 15, oriented to person, place, time, and situation. Cranial nerves II-XII grossly intact. Motor strength 5/5 in all extremities. Sensory grossly intact. Cerebellar exam normal. Normal gait. Psych: Awake, alert, with orientation to person, place and time. Behavior, mood, and affect are within normal limits. 20:55 Abdomen/GI: Inspection: abdomen appears normal, Bowel sounds: diminished, in all quadrants, Palpation: soft, mild abdominal tenderness, in the right upper quadrant and right lower quadrant. Vital Signs: 14:33 BP 128 / 96; Resp 15; Temp 98.8(TE); Pulse Ox 100% on R/A; Weight 113.4 kg; Height 5 ss ft. 10 in. (177.80 cm); Pain 7/10; 14:33 Body Mass Index 35.87 (113.40 kg, 177.80 cm) ss MDM: 20:55 Data reviewed: vital signs, nurses notes, lab test result(s). Counseling: I had a kdr detailed discussion with the patient and/or guardian regarding: the historical points, exam findings, and any diagnostic results supporting the discharge/admit diagnosis, lab results, the need for outpatient follow up. 23:31 Patient medically screened. kdr 23:33 ED course: Have reviewed prior charts and both ordering history in the ED and discharge kdr medication. Prior note on [place] [facility] also noted. 11/29 20:33 Order name: Basic Metabolic Panel; Complete Time: 21:52 kdr 11/29 20:33 Order name: CBC with Diff; Complete Time: 21:52 kdr 11/29 20:33 Order name: Hepatic Function; Complete Time: 21:52 kdr 11/29 20:33 Order name: Lipase; Complete Time: 21:52 kdr 11/29 20:33 Order name: IV Saline Lock; Complete Time: 20:52 kdr 11/29 20:33 Order name: Labs collected and sent; Complete Time: 20:52 kdr Administered Medications: 21:17 Drug: Zofran (Ondansetron) 4 mg Route: IVP; Site: right antecubital; em 22:00 Follow up: Response: No adverse reaction ll2 21:19 Drug: NS 0.9% 1000 ml Route: IV; Rate: 1 bolus; Site: right antecubital; em 22:20 Follow up: Response: No adverse reaction; IV Status: Completed infusion; IV Intake: ll2 1000ml 21:19 Drug: Flagyl 500 mg Route: PO; em 22:00 Follow up: Response: No adverse reaction ll2 21:19 Drug: Cipro 500 mg Route: PO; em 23:00 Follow up: Response: No adverse reaction ll2 21:20 Drug: morphine 4 mg Route: IVP; Site: right antecubital; em 22:00 Follow up: Response: No adverse reaction ll2 22:00 Drug: SOLU-Medrol 125 mg Route: IVP; Site: right antecubital; ll2 23:00 Follow up: Response: No adverse reaction ll2 22:51 Drug: morphine 4 mg Route: IVP; Site: right antecubital; ll2 23:40 Follow up: Response: No adverse reaction; RASS: Alert and Calm (0) ll2 23:42 Drug: Demerol 25 mg Route: IVP; Site: right antecubital; sg Disposition: 11/29/20 23:31 Discharged to Home. Impression: Abdominal and pelvic pain, Ulcerative Coitis Flare. - Condition is Stable. - Discharge Instructions: Ulcerative Colitis, Adult, Abdominal Pain, Adult, [id number]. - Prescriptions for Flagyl 500 mg Oral Tablet - take 1 tablet by ORAL route every 6 hours for 10 days; 40 tablet. Pepcid 20 mg Oral Tablet - take 1 tablet by ORAL route every 12 hours for 5 days; 10 tablet. Zofran 4 mg Oral Tablet - take 1 tablet by ORAL route every 12 hours As needed; 20 tablet. Cipro 500 mg Oral Tablet - take 1 tablet by ORAL route every 12 hours for 7 days; 14 tablet. Tylenol- Codeine #3 300-30 mg Oral Tablet - take 2 tablet by ORAL route every 6 hours As needed; 6 tablet. - Work release form, Medication Reconciliation Form, Thank You Letter, Antibiotic Education, Prescription Opioid Use form. - Follow up: Private Physician; When: 2 - 3 days; Reason: If symptoms return, Further diagnostic work-up, Recheck today's complaints, Continuance of care, Re-evaluation by your physician. - Problem is an acute exacerbation. - Symptoms have improved. - Notes: Follow-up with your doctor tomorrow for further treatment and evaluation Signatures: Dispatcher [employer] Greg Miranda RN RN Sinan Cole MD MD kdr Munoz, Edgar, RN RN em Smirch, Shelby, RN RN ss Linscombe, Lacie, RN RN ll2 Corrections: (The following items were deleted from the chart) 11/30 00:23 11/29 23:31 11/29/2020 23:31 Discharged to Home. Impression: Abdominal and pelvic pain; ll2 Ulcerative Coitis Flare. Condition is Stable. Forms are Medication Reconciliation Form, Thank You Letter, Antibiotic Education, Prescription Opioid Use. Follow up: Private Physician; When: 2 - 3 days; Reason: If symptoms return, Further diagnostic work-up, Recheck today's complaints, Continuance of care, Re-evaluation by your physician. Problem is an acute exacerbation. Symptoms have improved. kdr
[2020-11-29] MEDS ORDERED: MEPERIDINE HCL 25 MG/ML SYR ONE (23:59)
[2020-11-30 00:31] VITALS: BP 128/96; TEMP 98.8; O2SAT 100
== END 2020-11-30 00:23 | disposition home or self-care (01) ==
LOC: ER 14:09
DX: K51.918 Ulcerative colitis, unspecified with other complication (principal); K21.9 Gastro-esophageal reflux disease without esophagitis
CPT/HCPCS: 96361; 85025; 80048; 36415; 80076; 83690; 96375; 96374; 99284; J2175; J7030; J2930; J2405

== ENCOUNTER 2020-12-15 16:52 | Emergency (ER) | payer BC ==
--- OUTSIDE RECORDS SUMMARY | 2020-12-15 16:54 | XMS REPORT | Continuity of Care Document ---
:1985 Author Organization [facility] t Address [address] [place] [address] Care Team Providers Name Role Phone BRY Attending Clinician Unavailable Problems This patient has no known problems. Allergies, Adverse Reactions, Alerts This patient has no known allergies or adverse reactions. Medications This patient has no known medications. Procedures This patient has no known procedures. Encounters Start End Encounter Admission Attending Care Care Encounter Source Date/Time Date/Time Type Type Clinicians Facility Department ID 2020-10-27 2020-10-27 Outpatient BRY SHRAVAN [facility] [id number] [place] 00:00:00 00:00:[address] 2020-10-27 2020-10-27 Outpatient [facility] [id number] [place] 00:00:00 00:00:[address] Results This patient has no known results.
[2020-12-15 19:15] LABS: Absolute Lymphocytes (CBC) 1.6 K/uL (0.7-4.9); Basophils % 0.8 % (0-1.3); Lymphocytes % 13.8 % (15.3-44.8); MPV 8.2 fL (7.6-11.3); RBC Red Blood Cell Count 4.53 M/uL (4.33-5.43)
[2020-12-15] MEDS ORDERED: NA CHLORIDE 0.9% 1,000 ML ONE (19:28)
[2020-12-15] MEDS ORDERED: MORPHINE 4 MG/ML SYR ONE (19:28)
[2020-12-15] MEDS ORDERED: ONDANSETRON 4 MG/2 ML VIAL ONE (19:28)
[2020-12-15 19:33] LABS: ALT/SGPT 27 U/L (12-78); AST/SGOT 16 U/L (15-37); Albumin 3.6 g/dL (3.4-5.0); Alkaline Phosphatase 74 U/L (45-117); BUN Blood Urea Nitrogen 11 mg/dL (7-18); Bicarbonate 27 mmol/L (21-32); Bilirubin Direct < 0.1 mg/dL (0-0.2); Bilirubin Total 0.3 mg/dL (0.2-1.0); Glucose Level 115 mg/dL (74-106); Lipase 118 U/L (73-393); Potassium 3.7 mmol/L (3.5-5.1); Protein, Total 7.3 g/dL (6.4-8.2); Sodium Level 145 mmol/L (136-145)
[2020-12-15] MEDS ORDERED: MEPERIDINE HCL 25 MG/ML SYR ONE ×2 (20:04→21:53)
[2020-12-15] MEDS ORDERED: MEPERIDINE HCL 50 MG/ML ONE (20:55)
--- NOTE | 2020-12-15 21:25 | ER ---
Nurse's Notes [facility] Name: Slava Biswas Age: 35 yrs Sex: Male : 1985 Arrival Date: 12/15/2020 Time: 16:54 Bed 5 Private MD: Diagnosis: Lower abdominal pain, unspecified Presentation: 12/15 16:59 Chief complaint: Patient states: R sided abd pain with Nausea and bloody diarrhea for 1 ll1 day. States he believes it is a ulcerative colitis flare-up. No known fever. Coronavirus screen: Client denies travel out of the [place] in the last 14 days. At this time, the client does not indicate any symptoms associated with coronavirus-19. Ebola Screen: Patient denies travel to an Ebola-affected area in the 21 days before illness onset. Initial Sepsis Screen: Does the patient meet any 2 criteria? HR > 90 bpm. No. Patient's initial sepsis screen is negative. Does the patient have a suspected source of infection? Yes: Acute abdominal pain. Risk Assessment: Do you want to hurt yourself or someone else? Patient reports no desire to harm self or others. Onset of symptoms was December 15, 2020. 16:59 Method Of Arrival: Ambulatory ll1 16:59 Acuity: TRACEE 3 ll1 Triage Assessment: 19:00 General: Behavior is calm, cooperative. rv Historical: - Allergies: 16:59 No Known Drug Allergies; ll1 - PMHx: 16:59 Colitis; GERD; ulcertive colitis; ll1 - PSHx: 16:59 Hernia repair; deviated septum repair; Tonsillectomy; ll1 - Immunization history:: Flu vaccine is not up to date. - Social history:: Smoking status: Patient denies any tobacco usage or history of. Screenin:27 Abuse screen: Denies threats or abuse. Denies injuries from another. Nutritional rv screening: No deficits noted. Tuberculosis screening: No symptoms or risk factors identified. Fall Risk None identified. Assessment: 19:00 General: Appears comfortable. rv 19:00 Pain: Complains of pain in right lower quadrant. Neuro: Level of Consciousness is rv awake, alert, obeys commands, Oriented to person, place, time, situation. Cardiovascular: Patient's skin is warm and dry. Respiratory: Airway is patent Respiratory effort is even, unlabored. GI: Bowel sounds present X 4 quads. Abd is soft and non tender X 4 quads. Derm: Skin is intact. Vital Signs: 16:59 BP 148 / 103; Pulse 105; Resp 17; Temp 98.1; Pulse Ox 100% ; Weight 113.4 kg; Height 5 ll1 ft. 10 in. (177.80 cm); Pain 8/10; 19:00 BP 129 / 96; Pulse 97; Resp 16; Pulse Ox 99% on R/A; rv 20:00 BP 137 / 85; Pulse 91; Resp 18; Pulse Ox 99% on R/A; rv 21:40 BP 137 / 94; Pulse 197; Resp 17; Temp 98; Pulse Ox 100% on R/A; rv 16:59 Body Mass Index 35.87 (113.40 kg, 177.80 cm) 1 ED Course: 16:54 Patient arrived in ED. am2 16:59 Arm band placed on. 1 17:00 Triage completed. [facility] 18:43 Florentino Georges PA is PHCP. [facility] 18:43 Sinan Cole MD is Attending Physician. [facility] 19:00 Aiden Lipscomb RN is Primary Nurse. rv 19:00 Patient has correct armband on for positive identification. rv 19:00 Pulse ox on. NIBP on. rv 19:09 Initial lab(s) drawn, by ak, sent to lab. Inserted saline lock: 20 gauge in right rv antecubital area, using aseptic technique. Blood collected. 21:40 No provider procedures requiring assistance completed. IV discontinued, intact, rv bleeding controlled, No redness/swelling at site. Pressure dressing applied. Administered Medications: 19:14 Drug: morphine 4 mg {Note: rass 0.} Route: IVP; Site: right antecubital; rv 19:58 Follow up: Response: No adverse reaction; Pain is unchanged, physician notified; RASS: rv Alert and Calm (0) 19:14 Drug: Zofran (Ondansetron) 4 mg Route: IVP; Site: right antecubital; rv 19:58 Follow up: Response: No adverse reaction rv 19:15 Drug: NS 0.9% 1000 ml Route: IV; Rate: 1 bolus; Site: right antecubital; rv 19:58 Drug: Demerol 25 mg {Note: RASS 0.} Route: IVP; Site: right antecubital; rv 20:41 Follow up: Response: No adverse reaction; Pain is decreased; RASS: Alert and Calm (0) rv 20:40 Drug: Demerol 50 mg {Note: RASS 0.} Route: IVP; Site: right antecubital; rv 21:39 Follow up: Response: No adverse reaction; Pain is decreased; RASS: Alert and Calm (0) rv 21:40 Drug: Demerol 25 mg Route: IVP; Site: right antecubital; rv 21:40 Follow up: Response: Medication administered at discharge.; RASS: Alert and Calm (0) rv Outcome: 21:24 Discharge ordered by . sonu 21:40 Discharged to home ambulatory. rv 21:40 Condition: improved 21:40 Discharge instructions given to patient, Instructed on discharge instructions, follow up and referral plans. medication usage, Demonstrated understanding of instructions, follow-up care, medications, Prescriptions given X 3. 21:41 Patient left the ED. rv Signatures: Florentino Georges PA PA jmm Moreno, Amanda am2 Aiden Lipscomb, RN RN rv Soraya Tellez RN RN ll1
--- NOTE | 2020-12-15 21:25 | EDPHYS ---
Physician Documentation [facility] Name: Slava Biswas Age: 35 yrs Sex: Male : 1985 Arrival Date: 12/15/2020 Time: 16:54 Bed 5 Private MD: ED Physician Sinan Cole HPI: 12/15 19:58 This 35 yrs old Male presents to ER via Ambulatory with complaints of jmm Abdominal Pain. 19:58 The patient presents with abdominal pain. Onset: The symptoms/episode began/occurred jmm gradually, today. The symptoms do not radiate. Associated signs and symptoms: Pertinent negatives: diarrhea, vomiting. The symptoms are described as achy, sharp. Modifying factors: The symptoms are alleviated by nothing, the symptoms are aggravated by nothing. The patient has experienced similar episodes in the past, several times, chronically. Historical: - Allergies: 16:59 No Known Drug Allergies; ll1 - PMHx: 16:59 Colitis; GERD; ulcertive colitis; ll1 - PSHx: 16:59 Hernia repair; deviated septum repair; Tonsillectomy; ll1 - Immunization history:: Flu vaccine is not up to date. - Social history:: Smoking status: Patient denies any tobacco usage or history of. ROS: 19:58 Constitutional: Negative for fever, chills, and weight loss, Eyes: Negative for injury, jmm pain, redness, and discharge, ENT: Negative for injury, pain, and discharge, Neck: Negative for injury, pain, and swelling, Cardiovascular: Negative for chest pain, palpitations, and edema, Respiratory: Negative for shortness of breath, cough, wheezing, and pleuritic chest pain. 19:58 Abdomen/GI: Positive for abdominal pain. 19:58 All other systems are negative. Exam: 19:59 Constitutional: This is a well developed, well nourished patient who is awake, alert, jmm and in no acute distress. Head/Face: atraumatic. Eyes: EOMI, no conjunctival erythema appreciated ENT: Moist Mucus Membranes Neck: Trachea midline, Supple Chest/axilla: Normal chest wall appearance and motion. Cardiovascular: Regular rate and rhythm. No edema appreciated Respiratory: Normal respirations, no respiratory distress appreciated 19:59 Back: Normal ROM Skin: General appearance color normal MS/ Extremity: Moves all extremities, no obvious deformities appreciated, no edema noted to the lower extremities Neuro: Awake and alert, normal gait Psych: Behavior is normal, Mood is normal, Patient is cooperative and pleasant 19:59 Abdomen/GI: Inspection: abdomen appears normal, Bowel sounds: normal, Palpation: soft, mild abdominal tenderness, in the right lower quadrant. Vital Signs: 16:59 BP 148 / 103; Pulse 105; Resp 17; Temp 98.1; Pulse Ox 100% ; Weight 113.4 kg; Height 5 ll1 ft. 10 in. (177.80 cm); Pain 8/10; 19:00 BP 129 / 96; Pulse 97; Resp 16; Pulse Ox 99% on R/A; rv 20:00 BP 137 / 85; Pulse 91; Resp 18; Pulse Ox 99% on R/A; rv 21:40 BP 137 / 94; Pulse 197; Resp 17; Temp 98; Pulse Ox 100% on R/A; rv 16:59 Body Mass Index 35.87 (113.40 kg, 177.80 cm) ll1 MDM: 19:01 Patient medically screened. sonu 21:23 Data reviewed: vital signs, nurses notes. Counseling: I had a detailed discussion with sonu the patient and/or guardian regarding: the historical points, exam findings, and any diagnostic results supporting the discharge/admit diagnosis, lab results, the need for outpatient follow up, to return to the emergency department if symptoms worsen or persist or if there are any questions or concerns that arise at home. ED course: Patient is alert and non toxic in appearance in the ED. No signs of an acute intrabdominal process. Pain is similar to previous episodes. Patient is otherwise given strict return precautions. Patient understood and agrees with the plan of care. . 12/15 18:58 Order name: Basic Metabolic Panel [facility] 12/15 18:58 Order name: CBC with Diff [facility] 12/15 18:58 Order name: Hepatic Function [facility] 12/15 18:58 Order name: Lipase [facility] 12/15 18:58 Order name: Basic Metabolic Panel; Complete Time: 19:36 EDMS 12/15 18:58 Order name: CBC with Automated Diff; Complete Time: 19:28 EDMS 12/15 19:33 Order name: Liver (Hepatic) Function; Complete Time: 19:36 EDMS 12/15 19:33 Order name: Lipase; Complete Time: 19:36 EDMS 12/15 18:58 Order name: IV Saline Lock; Complete Time: 19:09 [facility] 12/15 18:58 Order name: Labs collected and sent; Complete Time: 19: [facility] Administered Medications: 19:14 Drug: morphine 4 mg {Note: rass 0.} Route: IVP; Site: right antecubital; rv 19:58 Follow up: Response: No adverse reaction; Pain is unchanged, physician notified; RASS: rv Alert and Calm (0) 19:14 Drug: Zofran (Ondansetron) 4 mg Route: IVP; Site: right antecubital; rv 19:58 Follow up: Response: No adverse reaction rv 19:15 Drug: NS 0.9% 1000 ml Route: IV; Rate: 1 bolus; Site: right antecubital; rv 19:58 Drug: Demerol 25 mg {Note: RASS 0.} Route: IVP; Site: right antecubital; rv 20:41 Follow up: Response: No adverse reaction; Pain is decreased; RASS: Alert and Calm (0) rv 20:40 Drug: Demerol 50 mg {Note: RASS 0.} Route: IVP; Site: right antecubital; rv 21:39 Follow up: Response: No adverse reaction; Pain is decreased; RASS: Alert and Calm (0) rv 21:40 Drug: Demerol 25 mg Route: IVP; Site: right antecubital; rv 21:40 Follow up: Response: Medication administered at discharge.; RASS: Alert and Calm (0) rv Disposition: 12/16 07:25 Co-signature as Attending Physician, Sinan Cole MD I agree with the assessment and kdr plan of care. Disposition: 12/15/20 21:24 Discharged to Home. Impression: Lower abdominal pain, unspecified. - Condition is Stable. - Discharge Instructions: Abdominal Pain, Adult. - Prescriptions for Cipro 500 mg Oral Tablet - take 1 tablet by ORAL route every 12 hours for 10 days; 20 tablet. Flagyl 500 mg Oral Tablet - take 1 tablet by ORAL route every 6 hours for 10 days; 40 tablet. Tylenol- Codeine #3 300-30 mg Oral Tablet - take 1 tablet by ORAL route every 4-6 hours As needed; 12 tablet. - Medication Reconciliation Form, Thank You Letter, Antibiotic Education, Prescription Opioid Use form. - Follow up: Private Physician; When: 2 - 3 days; Reason: Recheck today's complaints, Continuance of care, Re-evaluation by your physician. Signatures: Dispatcher [employer] EDSinan Rogers MD MD kdr Mickail, Joel, PA PA jmm Vicente, Ronaldo, RN RN Soraya Bautista RN RN ll1 Corrections: (The following items were deleted from the chart) 12/15 21:41 21:24 12/15/2020 21:24 Discharged to Home. Impression: Lower abdominal pain, rv unspecified. Condition is Stable. Forms are Medication Reconciliation Form, Thank You Letter, Antibiotic Education, Prescription Opioid Use. Follow up: Private Physician; When: 2 - 3 days; Reason: Recheck today's complaints, Continuance of care, Re-evaluation by your physician. sonu
[2020-12-16 10:26] VITALS: BP 137/94; TEMP 98; O2SAT 100
== END 2020-12-15 21:41 | disposition home or self-care (01) ==
LOC: ER 16:52
DX: R10.31 Right lower quadrant pain (principal)
CPT/HCPCS: 85025; 80048; 36415; 80076; 83690; 96375; 96374; 99284; J2175 ×3; J7030; J2405

== ENCOUNTER 2021-01-05 15:22 | Emergency (ER) | payer BC ==
--- OUTSIDE RECORDS SUMMARY | 2021-01-05 15:25 | XMS REPORT | Continuity of Care Document ---
:1985 Author Organization [facility] t Address [address] [place] [address] Care Team Providers Name Role Phone BRY [...] Department ID 2020-10-27 2020-10-27 Outpatient BRY SHRAVAN [facility] 2100 [id number] [place] 00:00:00 00:00:[address] 2020-10-27 2020-10-27 Outpatient [facility] [id number] [place] 00:00:00 00:00:[address] Results This patient has no known results.
[2021-01-05 20:26] LABS: Absolute Lymphocytes (CBC) 2.1 K/uL (0.7-4.9); Basophils % 0.4 % (0-1.3); Hematocrit 43.4 % (39.6-49.0); Lymphocytes % 15.8 % (15.3-44.8); MPV 9.2 fL (7.6-11.3)
[2021-01-05 20:34] LABS: ALT/SGPT 66 U/L (12-78); AST/SGOT 42 U/L (15-37); Albumin 4.1 g/dL (3.4-5.0); Alkaline Phosphatase 82 U/L (45-117); BUN Blood Urea Nitrogen 10 mg/dL (7-18); Bicarbonate 27 mmol/L (21-32); Bilirubin Direct < 0.1 mg/dL (0-0.2); Bilirubin Total 0.4 mg/dL (0.2-1.0); Glucose Level 104 mg/dL (74-106); Lipase 152 U/L (73-393); Potassium 3.8 mmol/L (3.5-5.1); Sodium Level 143 mmol/L (136-145)
[2021-01-05] MEDS ORDERED: METHYLPREDNISOLONE 125 MG INJ ONE (20:38)
[2021-01-05] MEDS ORDERED: HYDROMORPHONE HCL 1 MG/ML INJ ONE ×2 (20:38→21:32)
[2021-01-05] MEDS ORDERED: ONDANSETRON 4 MG/2 ML VIAL ONE ×2 (20:38→22:02)
--- NOTE | 2021-01-05 21:47 | ER ---
Nurse's Notes [facility] Name: Slava Biswas Age: 35 yrs Sex: Male : 1985 Arrival Date: 01/05/2021 Time: 15:24 Bed 13 Private MD: Cecilio Merida Diagnosis: Ulcerative colitis;Generalized abdominal pain Presentation: 01/05 16:08 Chief complaint: Patient states: Been having a flare up of my Ulcerative Colitis. Pain ca1 started the morning, more on the RLQ. Reports Nausea and diarrhea. Denies fever. Coronavirus screen: Client denies travel out of the [place] in the last 14 days. diarrhea, nausea, Client presents with at least one sign or symptom that may indicate coronavirus-19. Standard/surgical mask placed on the client. Provider contacted for isolation considerations. Ebola Screen: Patient negative for fever greater than or equal to 101.5 degrees Fahrenheit, and additional compatible Ebola Virus Disease symptoms Patient denies exposure to infectious person. Patient denies travel to an Ebola-affected area in the 21 days before illness onset. No symptoms or risks identified at this time. Initial Sepsis Screen: Does the patient meet any 2 criteria? No. Patient's initial sepsis screen is negative. Does the patient have a suspected source of infection? No. Patient's initial sepsis screen is negative. Risk Assessment: Do you want to hurt yourself or someone else? Patient reports no desire to harm self or others. Onset of symptoms was January 05, 2021. 16:08 Method Of Arrival: Ambulatory ca1 16:08 Acuity: TRACEE 3 ca1 Historical: - Allergies: 16:11 No Known Allergies; ca1 - Home Meds: 16:11 mesalamine Oral [Active]; Prilosec 40 mg Oral cpDR 1 cap 2 times per day [Active]; ca1 Probiotic Oral daily [Active]; - PMHx: 16:11 Colitis; GERD; ulcertive colitis; ca1 - PSHx: 16:11 Hernia repair; deviated septum repair; Tonsillectomy; ca1 - Immunization history:: Flu vaccine is not up to date. - Social history:: Smoking status: Patient denies any tobacco usage or history of. Screenin:05 Abuse screen: Denies threats or abuse. Denies injuries from another. Nutritional rr5 screening: No deficits noted. Tuberculosis screening: No symptoms or risk factors identified. Fall Risk IV access (20 points). Total Brennan Fall Scale indicates No Risk (0-24 pts). Assessment: 20:04 General: Appears in no apparent distress. comfortable, Behavior is calm, cooperative, rr5 appropriate for age. Pain: Complains of pain in right lower quadrant Pain currently is 9 out of 10 on a pain scale. Quality of pain is described as aching, Pain began gradually, Is intermittent. Neuro: Level of Consciousness is awake, alert, obeys commands, Oriented to person, place, time. Cardiovascular: Capillary refill < 3 seconds Patient's skin is warm and dry. Respiratory: Airway is patent Respiratory effort is even, unlabored, Respiratory pattern is regular, symmetrical. GI: Abdomen is round non-distended, Abd is soft and non tender Reports lower abdominal pain. : No signs and/or symptoms were reported regarding the genitourinary system. EENT: No signs and/or symptoms were reported regarding the EENT system. Derm: Skin is intact, is healthy with good turgor, Skin temperature is warm. Musculoskeletal: Capillary refill < 3 seconds. 21:20 Reassessment: Patient appears in no apparent distress at this time. Patient is alert, rr5 oriented x 3, equal unlabored respirations, skin warm/dry/pink. complaints of abdominal pain ED provider aware with order made and carried out. 22:03 Reassessment: Patient appears in no apparent distress at this time. Patient is alert, rr5 oriented x 3, equal unlabored respirations, skin warm/dry/pink. discharge instruction given and explained without complaints made Patient states feeling better. Patient states symptoms have improved. Vital Signs: 16:08 Pulse 104; Resp 16 S; Temp 99.3(TE); Pulse Ox 98% on R/A; Weight 113.4 kg (R); Height 5 ca1 ft. 10 in. (177.80 cm) (R); Pain 9/10; 16:11 BP 137 / 98; ca1 20:10 BP 141 / 89; Pulse 95; Resp 16; Pulse Ox 99% ; Pain 9/10; rr5 21:25 BP 135 / 82; Pulse 85; Resp 16; Pulse Ox 98% ; rr5 22:03 BP 132 / 80; Pulse 80; Resp 16; Temp 98.5; Pulse Ox 98% ; Pain 4/10; rr5 16:08 Body Mass Index 35.87 (113.40 kg, 177.80 cm) ca1 ED Course: 15:24 Patient arrived in ED. as 15:25 Cecilio Merida MD is Private Physician. as 16:10 Triage completed. ca1 16:11 Arm band placed on right wrist. ca1 19:52 Narayan Srivastava, RN is Primary Nurse. rr5 19:52 Luis Carlos Thomas PA is PHCP. jr8 19:52 Rei Noguera MD is Attending Physician. jr8 20:00 Inserted saline lock: 20 gauge in right antecubital area, using aseptic technique. rr5 Blood collected. 20:05 Patient has correct armband on for positive identification. Bed in low position. Call rr5 light in reach. Pulse ox on. NIBP on. 21:44 Alonzo Castillo MD is Referral Physician. jr8 22:03 No provider procedures requiring assistance completed. IV discontinued, intact, rr5 bleeding controlled, No redness/swelling at site. Pressure dressing applied. Administered Medications: 20:20 Drug: Zofran (Ondansetron) 4 mg Route: IVP; Site: right antecubital; rr5 21:20 Follow up: Response: No adverse reaction rr5 20:22 Drug: SOLU-Medrol 125 mg Route: IVP; Site: right antecubital; rr5 21:20 Follow up: Response: No adverse reaction rr5 20:28 Drug: Dilaudid 1 mg {Note: rass 0.} Route: IVP; Site: right antecubital; rr5 21:45 Follow up: Response: No adverse reaction; Pain is decreased; RASS: Alert and Calm (0) rr5 21:17 Drug: Dilaudid 1 mg Route: IVP; Site: right antecubital; ea 21:45 Follow up: Response: No adverse reaction; Pain is decreased; RASS: Alert and Calm (0) rr5 21:46 Drug: Zofran (Ondansetron) 4 mg Route: IVP; Site: right antecubital; rr5 22:04 Follow up: Response: No adverse reaction rr5 21:49 Drug: Demerol 50 mg {Note: rass 0.} Route: IVP; Site: right antecubital; rr5 22:04 Follow up: Response: No adverse reaction; Pain is decreased; RASS: Alert and Calm (0) rr5 Outcome: 21:45 Discharge ordered by MD. rich 22:03 Discharged to home ambulatory. rr5 22:03 Condition: stable 22:03 Discharge instructions given to patient, Instructed on discharge instructions, follow up and referral plans. medication usage, Demonstrated understanding of instructions, follow-up care, medications, Prescriptions given X 3. 22:04 Patient left the ED. rr5 Signatures: Malini Velazquez Josh, PA PA jr8 Mary Oliveira, RN RN Narayan Lin RN RN rr5 Vannessa Sanchez RN RN ca1
--- NOTE | 2021-01-05 21:47 | EDPHYS ---
Physician Documentation [facility] Name: Slava Biswas Age: 35 yrs Sex: Male : 1985 Arrival Date: 01/05/2021 Time: 15:24 Bed 13 Private MD: Cecilio Merida ED Physician Rei Noguera HPI: 01/05 20:35 This 35 yrs old Male presents to ER via Ambulatory with complaints of jr8 Abdominal Pain - uc flare up. 20:35 The patient presents with abdominal pain that is diffuse. Onset: The symptoms/episode jr8 began/occurred acutely, today. The symptoms do not radiate. Associated signs and symptoms: Pertinent positives: diarrhea. The symptoms are described as stabbing. Modifying factors: The symptoms are alleviated by nothing, the symptoms are aggravated by food. Severity of pain: At its worst the pain was moderate in the emergency department the pain is unchanged. The patient has experienced similar episodes in the past, several times. The patient has not recently seen a physician. Patient with history of UC. Stated that he is having another flare up. Stated that he started with pain and now having diarrhea with spots of blood and mucous . Historical: - Allergies: 16:11 No Known Allergies; ca1 - Home Meds: 16:11 mesalamine Oral [Active]; Prilosec 40 mg Oral cpDR 1 cap 2 times per day [Active]; ca1 Probiotic Oral daily [Active]; - PMHx: 16:11 Colitis; GERD; ulcertive colitis; ca1 - PSHx: 16:11 Hernia repair; deviated septum repair; Tonsillectomy; ca1 - Immunization history:: Flu vaccine is not up to date. - Social history:: Smoking status: Patient denies any tobacco usage or history of. ROS: 20:35 Eyes: Negative for injury, pain, redness, and discharge, ENT: Negative for injury, jr8 pain, and discharge, Neck: Negative for injury, pain, and swelling, Cardiovascular: Negative for chest pain, palpitations, and edema, Respiratory: Negative for shortness of breath, cough, wheezing, and pleuritic chest pain, Back: Negative for injury and pain, MS/Extremity: Negative for injury and deformity, Skin: Negative for injury, rash, and discoloration, Neuro: Negative for headache, weakness, numbness, tingling, and seizure. 20:35 Abdomen/GI: Positive for abdominal pain, nausea, diarrhea, hematochezia, Negative for vomiting, abdominal distension, hematemesis. Exam: 20:35 Eyes: Pupils equal round and reactive to light, extra-ocular motions intact. Lids and jr8 lashes normal. Conjunctiva and sclera are non-icteric and not injected. Cornea within normal limits. Periorbital areas with no swelling, redness, or edema. ENT: Nares patent. No nasal discharge, no septal abnormalities noted. Tympanic membranes are normal and external auditory canals are clear. Oropharynx with no redness, swelling, or masses, exudates, or evidence of obstruction, uvula midline. Mucous membranes moist. Neck: Trachea midline, no thyromegaly or masses palpated, and no cervical lymphadenopathy. Supple, full range of motion without nuchal rigidity, or vertebral point tenderness. No Meningismus. Cardiovascular: Tachycardic with a normal S1 and S2. No gallops, murmurs, or rubs. Normal PMI, no JVD. No pulse deficits. Respiratory: Lungs have equal breath sounds bilaterally, clear to auscultation and percussion. No rales, rhonchi or wheezes noted. No increased work of breathing, no retractions or nasal flaring. Back: No spinal tenderness. No costovertebral tenderness. Full range of motion. Skin: Warm, dry with normal turgor. Normal color with no rashes, no lesions, and no evidence of cellulitis. MS/ Extremity: Pulses equal, no cyanosis. Neurovascular intact. Full, normal range of motion. Neuro: Awake and alert, GCS 15, oriented to person, place, time, and situation. Cranial nerves II-XII grossly intact. Motor strength 5/5 in all extremities. Sensory grossly intact. Cerebellar exam normal. Normal gait. 20:35 Abdomen/GI: Inspection: obese Bowel sounds: active, all quadrants, Palpation: soft, in all quadrants, mild abdominal tenderness, in the abdomen diffusely, mass, is not appreciated, rebound tenderness, is not appreciated, voluntary guarding, is not appreciated, involuntary guarding, is not appreciated, no appreciated organomegaly, Indicators: McBurney's point is not tender, Titus's sign is negative, Rovsing's sign is negative, Liver: tenderness, is not appreciated. Vital Signs: 16:08 Pulse 104; Resp 16 S; Temp 99.3(TE); Pulse Ox 98% on R/A; Weight 113.4 kg (R); Height 5 ca1 ft. 10 in. (177.80 cm) (R); Pain 9/10; 16:11 BP 137 / 98; ca1 20:10 BP 141 / 89; Pulse 95; Resp 16; Pulse Ox 99% ; Pain 9/10; rr5 21:25 BP 135 / 82; Pulse 85; Resp 16; Pulse Ox 98% ; rr5 22:03 BP 132 / 80; Pulse 80; Resp 16; Temp 98.5; Pulse Ox 98% ; Pain 4/10; rr5 16:08 Body Mass Index 35.87 (113.40 kg, 177.80 cm) ca1 MDM: 19:54 Patient medically screened. umang 21:43 Data reviewed: vital signs, nurses notes, lab test result(s). Data interpreted: Pulse jr8 oximetry: on room air is 98 %. Interpretation: normal. Counseling: I had a detailed discussion with the patient and/or guardian regarding: the historical points, exam findings, and any diagnostic results supporting the discharge/admit diagnosis, lab results, the need for outpatient follow up, a science consultant, to return to the emergency department if symptoms worsen or persist or if there are any questions or concerns that arise at home. Response to treatment: the patient's symptoms have markedly improved after treatment. ED course: Patient doing better. No acute findings on reexamination of abdominal exam. VS stable. Will d/c home to f/u with GI. Knows to come back if worse . 01/05 19:55 Order name: Basic Metabolic Panel; Complete Time: 20:37 rr5 01/05 19:55 Order name: CBC with Diff; Complete Time: 20:37 rr5 01/05 19:55 Order name: Hepatic Function; Complete Time: 20:37 rr5 01/05 19:55 Order name: Lipase; Complete Time: 20:37 rr5 01/05 19:55 Order name: IV Saline Lock; Complete Time: 20:03 rr5 01/05 19:55 Order name: Labs collected and sent; Complete Time: 20:03 rr5 Administered Medications: 20:20 Drug: Zofran (Ondansetron) 4 mg Route: IVP; Site: right antecubital; rr5 21:20 Follow up: Response: No adverse reaction rr5 20:22 Drug: SOLU-Medrol 125 mg Route: IVP; Site: right antecubital; rr5 21:20 Follow up: Response: No adverse reaction rr5 20:28 Drug: Dilaudid 1 mg {Note: rass 0.} Route: IVP; Site: right antecubital; rr5 21:45 Follow up: Response: No adverse reaction; Pain is decreased; RASS: Alert and Calm (0) rr5 21:17 Drug: Dilaudid 1 mg Route: IVP; Site: right antecubital; ea 21:45 Follow up: Response: No adverse reaction; Pain is decreased; RASS: Alert and Calm (0) rr5 21:46 Drug: Zofran (Ondansetron) 4 mg Route: IVP; Site: right antecubital; rr5 22:04 Follow up: Response: No adverse reaction rr5 21:49 Drug: Demerol 50 mg {Note: rass 0.} Route: IVP; Site: right antecubital; rr5 22:04 Follow up: Response: No adverse reaction; Pain is decreased; RASS: Alert and Calm (0) rr5 Disposition: 01/06 07:55 Co-signature as Attending Physician, Rei Noguera MD I agree with the assessment and umang plan of care. Disposition: 01/05/21 21:45 Discharged to Home. Impression: Ulcerative colitis, Generalized abdominal pain. - Condition is Stable. - Discharge Instructions: Abdominal Pain, Adult. - Prescriptions for Cipro 500 mg Oral Tablet - take 1 tablet by ORAL route every 12 hours for 10 days; 20 tablet. Flagyl 500 mg Oral Tablet - take 1 tablet by ORAL route every 8 hours for 10 days; 30 tablet. Medrol (Thee) 4 mg Oral Tablets, Dose Pack - take 1 tablet by ORAL route as directed - follow package instructions; 1 packet. - Medication Reconciliation Form, Thank You Letter, Antibiotic Education, Prescription Opioid Use form. - Follow up: Alonzo Castillo MD; When: 2 - 3 days; Reason: Recheck today's complaints, Continuance of care, Re-evaluation by your physician. - Problem is new. - Symptoms have improved. Signatures: Dispatcher [employer] Rei Dowling MD MD cha Roszak, Josh, PA PA jr8 Mary Oliveira, RN RN Narayan Lin, RN RN rr5 Laura, Vannessa, RN RN ca1 Corrections: (The following items were deleted from the chart) 01/05 22:04 21:45 01/05/2021 21:45 Discharged to Home. Impression: Ulcerative colitis; Generalized rr5 abdominal pain. Condition is Stable. Forms are Medication Reconciliation Form, Thank You Letter, Antibiotic Education, Prescription Opioid Use. Follow up: Alonzo Castillo; When: 2 - 3 days; Reason: Recheck today's complaints, Continuance of care, Re-evaluation by your physician. Problem is new. Symptoms have improved. jr8
[2021-01-05] MEDS ORDERED: MEPERIDINE HCL 50 MG/ML ONE (22:02)
[2021-01-06 01:50] VITALS: O2SAT 98
[2021-01-06 01:51] VITALS: BP 132/80; TEMP 98.5
== END 2021-01-05 22:04 | disposition home or self-care (01) ==
LOC: ER 15:22
DX: K51.918 Ulcerative colitis, unspecified with other complication (principal); R10.84 Generalized abdominal pain; K21.9 Gastro-esophageal reflux disease without esophagitis
CPT/HCPCS: 85025; 80048; 36415; 80076; 83690; 96375; 96374; 99284; J2175; J1170 ×2; J2930; J2405 ×2

== ENCOUNTER 2021-01-16 15:52 | Emergency (ER) | payer BC ==
--- OUTSIDE RECORDS SUMMARY | 2021-01-16 15:54 | XMS REPORT | Continuity of Care Document ---
:1985 Author Organization [facility] t Address [address] [place] [address] Care Team Providers Name Role Phone BRY [...] Department ID 2020-10-27 2020-10-27 Outpatient BRY SHRAVAN [facility] [id number] [place] 00:00:00 00:00:[address] 2020-10-27 2020-10-27 Outpatient [place] [facility] [id number] [place] 00:00:00 00:00:[address] Results This patient has no known results.
[2021-01-16 17:00] LABS: Absolute Lymphocytes (CBC) 1.6 K/uL (0.7-4.9); Basophils % 0.6 % (0-1.3); Hematocrit 45.9 % (39.6-49.0); Lymphocytes % 16.1 % (15.3-44.8); MPV 8.3 fL (7.6-11.3); RBC Red Blood Cell Count 5.09 M/uL (4.33-5.43)
[2021-01-16] MEDS ORDERED: METHYLPREDNISOLONE 125 MG INJ ONE (17:10)
[2021-01-16] MEDS ORDERED: HYDROMORPHONE HCL 1 MG/ML INJ ONE ×2 (17:11→19:02)
[2021-01-16] MEDS ORDERED: ONDANSETRON 4 MG/2 ML VIAL ONE ×2 (17:11→18:23)
[2021-01-16] MEDS ORDERED: NA CHLORIDE 0.9% 1,000 ML ONE (17:11)
[2021-01-16 17:12] LABS: Albumin 4.3 g/dL (3.4-5.0); Bilirubin Direct 0.1 mg/dL (0-0.2); Bilirubin Total 0.5 mg/dL (0.2-1.0); Potassium 3.9 mmol/L (3.5-5.1); Protein, Total 8.5 g/dL (6.4-8.2)
[2021-01-16] MEDS ORDERED: MORPHINE 4 MG/ML SYR ONE (18:23)
--- NOTE | 2021-01-16 18:31 | ER ---
Nurse's Notes [facility] Name: Slava Biswas Age: 35 yrs Sex: Male : 1985 Arrival Date: 01/16/2021 Time: 15:54 Bed 16 Private MD: Diagnosis: Other abdominal pain Presentation: 01/16 16:02 Chief complaint: Patient states: "I think I am having a flair up of my ulcerative jd3 colitis, bad pain on my lower right side.". Coronavirus screen: At this time, the client does not indicate any symptoms associated with coronavirus-19. Ebola Screen: Patient negative for fever greater than or equal to 101.5 degrees Fahrenheit, and additional compatible Ebola Virus Disease symptoms. Initial Sepsis Screen: Does the patient meet any 2 criteria? No. Patient's initial sepsis screen is negative. Does the patient have a suspected source of infection? No. Patient's initial sepsis screen is negative. Risk Assessment: Do you want to hurt yourself or someone else? Patient reports no desire to harm self or others. Onset of symptoms was January 16, 2021. 16:02 Method Of Arrival: Ambulatory jd3 16:02 Acuity: TRACEE 3 jd3 Historical: - Allergies: 16:03 No Known Allergies; jd3 - PMHx: 16:03 Colitis; ulcertive colitis; GERD; jd3 - PSHx: 16:03 Hernia repair; deviated septum repair; Tonsillectomy; jd3 - Immunization history:: Adult Immunizations up to date. - Social history:: Smoking status: Patient denies any tobacco usage or history of. Patient/guardian denies using alcohol, street drugs, The patient lives with family. - Family history:: not pertinent. Screenin:35 Abuse screen: Denies threats or abuse. Denies injuries from another. Nutritional ca1 screening: No deficits noted. Tuberculosis screening: No symptoms or risk factors identified. Fall Risk IV access (20 points). Assessment: 16:35 General: Appears in no apparent distress. comfortable, Behavior is calm, cooperative, ca1 appropriate for age. Pain: Complains of pain in right lower quadrant Pain does not radiate. Pain currently is 9 out of 10 on a pain scale. Neuro: Level of Consciousness is awake, alert, obeys commands, Oriented to person, place, time, situation. Cardiovascular: Heart tones S1 S2 present Capillary refill < 3 seconds Patient's skin is warm and dry. Respiratory: Airway is patent Respiratory effort is even, unlabored, Respiratory pattern is regular, symmetrical, Breath sounds are clear bilaterally. GI: Abdomen is round non-distended, Bowel sounds present X 4 quads. Abd is soft X 4 quads Abdomen is tender to palpation in right lower quadrant Reports diarrhea, nausea. : No signs and/or symptoms were reported regarding the genitourinary system. EENT: No signs and/or symptoms were reported regarding the EENT system. Derm: Skin is intact, is healthy with good turgor, Skin is pink, warm \\T\\ dry. Musculoskeletal: Circulation, motion, and sensation intact. Capillary refill < 3 seconds. 17:11 Reassessment: Patient appears in no apparent distress at this time. Patient and/or ca1 family updated on plan of care and expected duration. Pain level reassessed. Patient is alert, oriented x 3, equal unlabored respirations, skin warm/dry/pink. 18:15 Reassessment: Patient appears in no apparent distress at this time. Patient and/or ca1 family updated on plan of care and expected duration. Pain level reassessed. Patient is alert, oriented x 3, equal unlabored respirations, skin warm/dry/pink. 18:48 Reassessment: Patient appears in no apparent distress at this time. Patient is alert, ca1 oriented x 3, equal unlabored respirations, skin warm/dry/pink. Vital Signs: 16:03 BP 120 / 97; Pulse 100; Resp 16 S; Temp 97.7(TE); Pulse Ox 97% on R/A; Weight 113.4 kg jd3 (R); Height 5 ft. 10 in. (177.80 cm) (R); Pain 9/10; 17:11 BP 119 / 87; Pulse 97; Resp 17 S; Pulse Ox 100% on R/A; ca1 18:15 BP 127 / 77; Pulse 92; Resp 18 S; Pulse Ox 99% on R/A; ca1 16:03 Body Mass Index 35.87 (113.40 kg, 177.80 cm) jd3 ED Course: 15:54 Patient arrived in ED. as 16:03 Triage completed. jd3 16:04 Arm band placed on. jd3 16:28 Vannessa Sanchez, RN is Primary Nurse. ca1 16:29 Mary Ervin MD is Attending Physician. ma2 16:35 Patient has correct armband on for positive identification. Bed in low position. Call ca1 light in reach. Side rails up X2. Pulse ox on. NIBP on. 16:48 Initial lab(s) drawn, by me, sent to lab. Inserted saline lock: 20 gauge in left ca1 antecubital area, using aseptic technique. Blood collected. 18:49 No provider procedures requiring assistance completed. IV discontinued, intact, ca1 bleeding controlled, No redness/swelling at site. Pressure dressing applied. Administered Medications: 16:50 Drug: NS 0.9% 1000 ml Route: IV; Rate: 1 bolus; Site: left antecubital; ca1 17:50 Follow up: IV Status: Completed infusion; IV Intake: 1000ml ca1 16:52 Drug: SOLU-Medrol 125 mg Route: IVP; Site: left antecubital; ca1 18:14 Follow up: Response: No adverse reaction; Nausea is decreased ca1 16:54 Drug: Zofran (Ondansetron) 4 mg Route: IVP; Site: left antecubital; ca1 18:14 Follow up: Response: No adverse reaction; Nausea is decreased ca1 16:56 Drug: Dilaudid (HYDROmorphone) 1 mg {Note: rass 0.} Route: IVP; Site: left antecubital; ca1 18:14 Follow up: Response: No adverse reaction; Pain is unchanged, physician notified; RASS: ca1 Alert and Calm (0) 18:13 Drug: morphine 4 mg Route: IVP; Site: left antecubital; ca1 18:47 Follow up: Response: No adverse reaction; Pain is unchanged, physician notified; RASS: ca1 Alert and Calm (0) 18:16 Not Given (Patient Refused): Zofran (Ondansetron) 4 mg IVP once; over 2 minutes ca1 18:48 Drug: Dilaudid (HYDROmorphone) 1 mg {Note: rass 0.} Route: IVP; Site: left antecubital; ca1 18:48 Follow up: Response: Medication administered at discharge. ca1 Intake: 17:50 IV: 1000ml; Total: 1000ml. ca1 Outcome: 18:30 Discharge ordered by . ma2 18:49 Discharged to home ambulatory, with family. ca1 18:49 Condition: stable 18:49 Discharge instructions given to patient, Instructed on discharge instructions, follow up and referral plans. Demonstrated understanding of instructions, follow-up care. 18:49 Patient left the ED. ca1 Signatures: Malini Velazquez Jonathon, RN RN jd3 Mary Ervin MD MD ma2 Vannesas Sanchez RN RN ca1
--- NOTE | 2021-01-16 18:31 | EDPHYS ---
Physician Documentation [facility] Name: Slava Biswas Age: 35 yrs Sex: Male : 1985 Arrival Date: 01/16/2021 Time: 15:54 Bed 16 Private MD: ED Physician Mary Ervin HPI: 01/16 16:34 This 35 yrs old Male presents to ER via Ambulatory with complaints of ma2 Abdominal Pain. 16:34 The patient presents with abdominal pain. Associated signs and symptoms: Pertinent ma2 negatives: anorexia, chest pain, diarrhea. Severity of pain: At its worst the pain was moderate in the emergency department the pain is unchanged. The patient has experienced similar episodes in the past. Historical: - Allergies: 16:03 No Known Allergies; jd3 - PMHx: 16:03 Colitis; ulcertive colitis; GERD; jd3 - PSHx: 16:03 Hernia repair; deviated septum repair; Tonsillectomy; jd3 - Immunization history:: Adult Immunizations up to date. - Social history:: Smoking status: Patient denies any tobacco usage or history of. Patient/guardian denies using alcohol, street drugs, The patient lives with family. - Family history:: not pertinent. ROS: 16:34 Constitutional: Negative for fever, chills, and weight loss. ma2 16:34 All other systems are negative. 16:34 All other systems are negative. Exam: 16:34 Constitutional: This is a well developed, well nourished patient who is awake, alert, ma2 and in no acute distress. Chest/axilla: Normal chest wall appearance and motion. Nontender with no deformity. No lesions are appreciated. Cardiovascular: Regular rate and rhythm with a normal S1 and S2. No gallops, murmurs, or rubs. Normal PMI, no JVD. No pulse deficits. Respiratory: Lungs have equal breath sounds bilaterally, clear to auscultation and percussion. No rales, rhonchi or wheezes noted. No increased work of breathing, no retractions or nasal flaring. Abdomen/GI: Soft, non-tender, with normal bowel sounds. No distension or tympany. No guarding or rebound. No evidence of tenderness throughout. Skin: Warm, dry with normal turgor. Normal color with no rashes, no lesions, and no evidence of cellulitis. MS/ Extremity: Pulses equal, no cyanosis. Neurovascular intact. Full, normal range of motion. Neuro: Awake and alert, GCS 15, oriented to person, place, time, and situation. Cranial nerves II-XII grossly intact. Motor strength 5/5 in all extremities. Sensory grossly intact. Cerebellar exam normal. Normal gait. Vital Signs: 16:03 BP 120 / 97; Pulse 100; Resp 16 S; Temp 97.7(TE); Pulse Ox 97% on R/A; Weight 113.4 kg jd3 (R); Height 5 ft. 10 in. (177.80 cm) (R); Pain 9/10; 17:11 BP 119 / 87; Pulse 97; Resp 17 S; Pulse Ox 100% on R/A; ca1 18:15 BP 127 / 77; Pulse 92; Resp 18 S; Pulse Ox 99% on R/A; ca1 16:03 Body Mass Index 35.87 (113.40 kg, 177.80 cm) jd3 MDM: 16:29 Patient medically screened. [facility] 16:34 Differential diagnosis: gastritis, gastroesophageal reflux disease, non-specific abd ma2 pain, pancreatitis. 17:33 Data reviewed: vital signs, nurses notes. Counseling: I had a detailed discussion with ma2 the patient and/or guardian regarding: the historical points, exam findings, and any diagnostic results supporting the discharge/admit diagnosis, the presence of at least one elevated blood pressure reading (>120/80) during this emergency department visit, the need for outpatient follow up. Response to treatment: the patient's symptoms have markedly improved after treatment. 01/16 16:34 Order name: Basic Metabolic Panel [facility] 01/16 16:34 Order name: CBC with Diff [facility] 01/16 16:34 Order name: Hepatic Function [facility] 01/16 16:34 Order name: Lipase [facility] 01/16 16:35 Order name: Basic Metabolic Panel; Complete Time: 17:33 EDMS 01/16 16:35 Order name: CBC with Automated Diff; Complete Time: 17:33 EDMS 01/16 16:35 Order name: Liver (Hepatic) Function; Complete Time: 17:33 EDMS 01/16 16:35 Order name: Lipase; Complete Time: 17:33 EDMS 01/16 16:34 Order name: IV Saline Lock; Complete Time: 16:50 ma2 01/16 16:34 Order name: Labs collected and sent; Complete Time: 16:50 ma2 Administered Medications: 16:50 Drug: NS 0.9% 1000 ml Route: IV; Rate: 1 bolus; Site: left antecubital; ca1 17:50 Follow up: IV Status: Completed infusion; IV Intake: 1000ml ca1 16:52 Drug: SOLU-Medrol 125 mg Route: IVP; Site: left antecubital; ca1 18:14 Follow up: Response: No adverse reaction; Nausea is decreased ca1 16:54 Drug: Zofran (Ondansetron) 4 mg Route: IVP; Site: left antecubital; ca1 18:14 Follow up: Response: No adverse reaction; Nausea is decreased ca1 16:56 Drug: Dilaudid (HYDROmorphone) 1 mg {Note: rass 0.} Route: IVP; Site: left antecubital; ca1 18:14 Follow up: Response: No adverse reaction; Pain is unchanged, physician notified; RASS: ca1 Alert and Calm (0) 18:13 Drug: morphine 4 mg Route: IVP; Site: left antecubital; ca1 18:47 Follow up: Response: No adverse reaction; Pain is unchanged, physician notified; RASS: ca1 Alert and Calm (0) 18:16 Not Given (Patient Refused): Zofran (Ondansetron) 4 mg IVP once; over 2 minutes ca1 18:48 Drug: Dilaudid (HYDROmorphone) 1 mg {Note: rass 0.} Route: IVP; Site: left antecubital; ca1 18:48 Follow up: Response: Medication administered at discharge. ca1 Disposition: 01/16/21 18:30 Discharged to Home. Impression: Other abdominal pain. - Condition is Stable. - Discharge Instructions: Abdominal Pain, Adult, [id number]. - Medication Reconciliation Form, Thank You Letter, Antibiotic Education, Prescription Opioid Use form. - Follow up: Private Physician; When: Tomorrow; Reason: If symptoms return, Continuance of care. Signatures: Dispatcher [employer] Nicholas Tolentino RN RN jMary Canchola MD MD ma2 Vannessa Sanchez RN RN ca1 Corrections: (The following items were deleted from the chart) 18:49 18:30 01/16/2021 18:30 Discharged to Home. Impression: Other abdominal pain. Condition ca1 is Stable. Forms are Medication Reconciliation Form, Thank You Letter, Antibiotic Education, Prescription Opioid Use. Follow up: Private Physician; When: Tomorrow; Reason: If symptoms return, Continuance of care. ma2
== END 2021-01-16 18:49 | disposition home or self-care (01) ==
LOC: ER 15:52
DX: R10.31 Right lower quadrant pain (principal); K51.90 Ulcerative colitis, unspecified, without complications
CPT/HCPCS: 85025; 80048; 36415; 80076; 83690; J1170 ×2; J7030; J2930; J2405; 96361; 96374; 96375; 99284

== ENCOUNTER 2021-01-24 12:35 | Emergency (ER) | payer BC ==
--- OUTSIDE RECORDS SUMMARY | 2021-01-24 12:38 | XMS REPORT | Continuity of Care Document ---
:1985 Author Organization [facility] t Address [address] [place] [address] Care Team Providers Name Role Phone BRY [...] Department ID 2020-10-27 2020-10-27 Outpatient BRY [facility]RAV[facility] [id number] [place] 00:00:00 00:00:[address] 2020-10-27 2020-10-27 Outpatient [facility] [id number] [place] 00:00:00 00:00:[address] Results This patient has no known results.
[2021-01-24] MEDS ORDERED: HYDROMORPHONE HCL 1 MG/ML INJ ONE (14:28)
[2021-01-24] MEDS ORDERED: PROMETHAZINE INJ 25 MG/ML AMP ONE (14:28)
--- NOTE | 2021-01-24 14:35 | EDPHYS ---
Physician Documentation [facility] Name: Slava Biswas Age: 35 yrs Sex: Male : 1985 Arrival Date: 01/24/2021 Time: 12:36 Bed 23 Private MD: LIANE Physician Rei Noguera HPI: 01/24 14:29 This 35 yrs old Male presents to ER via Ambulatory with complaints of RLQ abd jmm pain. 14:29 The patient presents with abdominal pain right lower quadrant. Onset: The jmm symptoms/episode began/occurred today. The symptoms do not radiate. Associated signs and symptoms: Pertinent negatives: nausea and vomiting. The symptoms are described as achy. Modifying factors: The symptoms are alleviated by nothing, the symptoms are aggravated by nothing. Patient complaints of chronic RLQ abdominal pain that is similar in character to previous flares. Patient denies fever, vomiting. Patient states he has had some diarrhea. . Historical: - Allergies: 12:41 No Known Allergies; ca1 - Home Meds: 12:41 Prilosec 40 mg Oral cpDR 1 cap 2 times per day [Active]; mesalamine Oral [Active]; ca1 Probiotic Oral daily [Active]; - PMHx: 12:41 Colitis; GERD; ulcertive colitis; ca1 - PSHx: 12:41 Hernia repair; deviated septum repair; Tonsillectomy; ca1 - Immunization history:: Adult Immunizations not up to date. - Social history:: Smoking status: Patient denies any tobacco usage or history of. ROS: 14:29 Constitutional: Negative for fever, chills, and weight loss, Cardiovascular: Negative jmm for chest pain, palpitations, and edema, Respiratory: Negative for shortness of breath, cough, wheezing, and pleuritic chest pain. 14:29 Abdomen/GI: Positive for abdominal pain. 14:29 All other systems are negative. Exam: 14:29 Constitutional: This is a well developed, well nourished patient who is awake, alert, jmm and in no acute distress. Head/Face: atraumatic. Eyes: EOMI, no conjunctival erythema appreciated ENT: Moist Mucus Membranes Neck: Trachea midline, Supple Chest/axilla: Normal chest wall appearance and motion. Cardiovascular: Regular rate and rhythm. No edema appreciated Respiratory: Normal respirations, no respiratory distress appreciated Abdomen/GI: Non distended, soft Back: Normal ROM Skin: General appearance color normal MS/ Extremity: Moves all extremities, no obvious deformities appreciated, no edema noted to the lower extremities Neuro: Awake and alert, normal gait Psych: Behavior is normal, Mood is normal, Patient is cooperative and pleasant Vital Signs: 12:39 Pulse 106; Resp 16 S; Temp 97.6(TE); Pulse Ox 99% on R/A; Weight 113.4 kg (R); Height 5 ca1 ft. 10 in. (177.80 cm) (R); Pain 8/10; 12:41 BP 133 / 105; ca1 12:39 Body Mass Index 35.87 (113.40 kg, 177.80 cm) ca1 MDM: 14:01 Patient medically screened. sonu 14:32 Data reviewed: vital signs, nurses notes. Counseling: I had a detailed discussion with sonu the patient and/or guardian regarding: the historical points, exam findings, and any diagnostic results supporting the discharge/admit diagnosis, the need for outpatient follow up, to return to the emergency department if symptoms worsen or persist or if there are any questions or concerns that arise at home. ED course: Pain is similar in character top previous flares. I do not suspect acute appendicitis. Patient is advised to follow up with GI and otherwise given strict return precautions. Patient understood and agrees with the plan of care. . Administered Medications: 14:25 Drug: Dilaudid (HYDROmorphone) 1 mg Route: IM; Site: right deltoid; iw 14:25 Drug: Promethazine 25 mg Route: IM; Site: right deltoid; iw 14:40 Drug: Ativan 1 mg Route: PO; iw Disposition: 01/24/21 14:34 Discharged to Home. Impression: Lower abdominal pain, unspecified. - Condition is Stable. - Discharge Instructions: Abdominal Pain, Adult. - Prescriptions for Flagyl 500 mg Oral Tablet - take 1 tablet by ORAL route every 6 hours for 10 days; 40 tablet. Cipro 500 mg Oral Tablet - take 1 tablet by ORAL route every 12 hours for 10 days; 20 tablet. Zofran ODT 4 mg Oral tablet,disintegrating - place 1 tablet by TRANSLINGUAL route every 4-6 hours; 20 tablet. Medrol (Thee) 4 mg Oral Tablets, Dose Pack - take 1 tablet by ORAL route as directed - follow package instructions; 1 packet. - Medication Reconciliation Form, Thank You Letter, Antibiotic Education, Prescription Opioid Use form. - Follow up: Private Physician; When: 2 - 3 days; Reason: Recheck today's complaints, Continuance of care, Re-evaluation by your physician. Addendum: 01/26/2021 06:39 Co-signature as Attending Physician, Rei Noguera MD I agree with the assessment and c mcfarlane plan of care. Signatures: Rei Noguera MD MD cha Mickail, Joel, PA PA jmm Williams, Irene, HARSHA RN iw Acob, Vannessa RN RN ca1 Corrections: (The following items were deleted from the chart) 01/24 14:56 14:34 01/24/2021 14:34 Discharged to Home. Impression: Lower abdominal pain, iw unspecified. Condition is Stable. Forms are Medication Reconciliation Form, Thank You Letter, Antibiotic Education, Prescription Opioid Use. Follow up: Private Physician; When: 2 - 3 days; Reason: Recheck today's complaints, Continuance of care, Re-evaluation by your physician. sonu
--- NOTE | 2021-01-24 14:35 | ER ---
Nurse's Notes [facility] [place] Name: Slava Biswas Age: 35 yrs Sex: Male : 1985 Arrival Date: 01/24/2021 Time: 12:36 Bed 23 Private MD: Diagnosis: Lower abdominal pain, unspecified Presentation: 01/24 12:39 Chief complaint: Patient states: RLQ pain since this morning. Flare up of Ulcerative ca1 Colitis. Reports nausea and diarrehea. Coronavirus screen: Client denies travel out of the [place] in the last 14 days. diarrhea, nausea, Client presents with at least one sign or symptom that may indicate coronavirus-19. Standard/surgical mask placed on the client. Provider contacted for isolation considerations. Ebola Screen: Patient negative for fever greater than or equal to 101.5 degrees Fahrenheit, and additional compatible Ebola Virus Disease symptoms Patient denies exposure to infectious person. Patient denies travel to an Ebola-affected area in the 21 days before illness onset. No symptoms or risks identified at this time. Initial Sepsis Screen: Does the patient meet any 2 criteria? No. Patient's initial sepsis screen is negative. Does the patient have a suspected source of infection? No. Patient's initial sepsis screen is negative. Risk Assessment: Do you want to hurt yourself or someone else? Patient reports no desire to harm self or others. Onset of symptoms was January 24, 2021. 12:39 Method Of Arrival: Ambulatory ca1 12:39 Acuity: TRACEE 3 ca1 Triage Assessment: 14:00 General: Appears in no apparent distress. Behavior is calm, cooperative. iw Historical: - Allergies: 12:41 No Known Allergies; ca1 - Home Meds: 12:41 Prilosec 40 mg Oral cpDR 1 cap 2 times per day [Active]; mesalamine Oral [Active]; ca1 Probiotic Oral daily [Active]; - PMHx: 12:41 Colitis; GERD; ulcertive colitis; ca1 - PSHx: 12:41 Hernia repair; deviated septum repair; Tonsillectomy; ca1 - Immunization history:: Adult Immunizations not up to date. - Social history:: Smoking status: Patient denies any tobacco usage or history of. Screenin:00 Abuse screen: Denies threats or abuse. Denies injuries from another. Nutritional iw screening: No deficits noted. Tuberculosis screening: No symptoms or risk factors identified. Fall Risk None identified. Assessment: 14:00 General: Appears in no apparent distress. Behavior is calm, cooperative. Pain: iw Complains of pain in abdomen. Neuro: Level of Consciousness is awake, alert, obeys commands, Oriented to person, place, time, situation, Moves all extremities. Full function. Cardiovascular: Patient's skin is warm and dry. Respiratory: Respiratory effort is even, unlabored, Respiratory pattern is regular, symmetrical. GI: Reports lower abdominal pain, nausea. Derm: Skin is intact, is healthy with good turgor. Musculoskeletal: Range of motion: intact in all extremities. 14:53 Reassessment: pt states he is still in the same amount of pain, asking for another shot iw of pain medicine, pt advised that I have spoken to Er PA and he recommends that he follow up with his regular PCP or specialist in regards to his chronic pain, pt has prescriptions for abx , steroids and nausea medicine. Vital Signs: 12:39 Pulse 106; Resp 16 S; Temp 97.6(TE); Pulse Ox 99% on R/A; Weight 113.4 kg (R); Height 5 ca1 ft. 10 in. (177.80 cm) (R); Pain 8/10; 12:41 BP 133 / 105; ca1 12:39 Body Mass Index 35.87 (113.40 kg, 177.80 cm) ca1 ED Course: 12:36 Patient arrived in ED. am2 12:40 Triage completed. ca1 12:41 Arm band placed on right wrist. ca1 13:57 Florentino Georges PA is PHCP. [facility] 13:57 Rei Noguera MD is Attending Physician. jmm 14:00 Patient has correct armband on for positive identification. iw 14:06 Jolene Ware, RN is Primary Nurse. iw 14:54 No provider procedures requiring assistance completed. Patient did not have IV access iw during this emergency room visit. Administered Medications: 14:25 Drug: Dilaudid (HYDROmorphone) 1 mg Route: IM; Site: right deltoid; iw 14:25 Drug: Promethazine 25 mg Route: IM; Site: right deltoid; iw 14:40 Drug: Ativan 1 mg Route: PO; iw Outcome: 14:34 Discharge ordered by . [facility] 14:55 Discharged to home ambulatory. iw 14:55 Condition: good 14:55 Discharge instructions given to patient, Instructed on discharge instructions, follow up and referral plans. medication usage, Demonstrated understanding of instructions, follow-up care, medications, Prescriptions given X 3. 14:56 Patient left the ED. iw Signatures: Florentino Georges PA PA jmm Williams, Irene, HARSHA RN iw Bernie Stanton am2 Vannessa Sanchez RN RN ca1
[2021-01-24 15:01] VITALS: TEMP 97.6; O2SAT 99
[2021-01-24 15:02] VITALS: BP 133/105
[2021-01-24] MEDS ORDERED: LORAZEPAM 0.5 MG TABLET ONE (15:02)
== END 2021-01-24 14:56 | disposition home or self-care (01) ==
LOC: ER 12:35
DX: R10.31 Right lower quadrant pain (principal); R19.7 Diarrhea, unspecified
CPT/HCPCS: J2550; J1170; 96372; 99283

== ENCOUNTER 2021-02-20 13:31 | Emergency (ER) | payer BC ==
--- OUTSIDE RECORDS SUMMARY | 2021-02-20 13:34 | XMS REPORT | Continuity of Care Document ---
:1985 Author Organization [facility] t Address [address] [place] [address] Care Team Providers Name Role Phone Fuad BRANHAM Primary Care Physician Dillon BRANHAM B. Attending Clinician Payers Payer Name Policy Type Policy Effective Date Expiration Date Sour ce Number BCBSANTHEM ANJALI [id number] 2017 [place] [id number] 00:00:00 Methodis t 04/2018-PresentPP O Problems Condition [...] Date Stop Date Source Natural father Diabetes [facility] Social History Social Habit Start Date Stop Date Quantity Comments Source Tobacco use and 2020-10-27 2020-10-27 Never used [facility]ist exposure 00:00:00 00:00:00 Alcohol intake 2020-10-27 2020-10-27 Lifetime [facility] 00:00:00 00:00:00 non-drinker (finding) Sex Ass[birth year] [place] [facility]ist 00:00:00 00:00:00 Smoking Status Start Date Stop Date Source Never smoker Solo Daniel t Medications Ordered Filled Start Stop Current Ordering Indication Dosage Frequency Signature Comments Components Source Medication Medication Date Date Medication? Clinician (SIG) Name Name maggie 2020- No acute pain 1{tbl} Q6H Take 1 [place] en-codeine 1-26 - tablet by Met sherman (TYLENOL 00:00: 23:[address] WITH 00 :00 every 6 CODEINE #3) (six) 300-30 mg hours as per tablet needed for moderate pain for up to 7 days .acute pain. bahmanph 2020- No acute pain 1{tbl} Q6H Take 1-2 [place] en-codeine 1-13 -20 tablets by Me pacheco (TYLENOL 00:00: 23:[address] WITH 00 :00 every 6 CODEINE #3) (six) 300-30 mg hours as per tablet needed for moderate pain for up to 7 days .acute pain. omeprazole Yes Solo (PriLOSEC) 03-27 Methodi 40 MG 00:00: st capsule 00 Vital Signs Vital Name Observation Time Observation Value Comments Source Body height 2020-10-27 15:59:00 177.8 cm Solo Harris Body weight 2020-10-27 15:59:00 113.399 kg Solo Harris BMI 2020-10-27 15:59:00 35.87 kg/m2 Solo Harris Procedures Procedure Date / Time Performing Clinician Source Performed XR SHOULDER 2+ VW LEFT 2020-10-27 16:09:04 Shravan Carranza [facility] [place] ARTHROCENTESIS 2020-10-27 15:50:[address] [place] ASPIR&/INJ MAJOR JT/BURSA W/O US Plan of Care Planned Activity Planned Date Details Comments Source Future Scheduled 2021-05-15 INFLUENZA VACCINE Tomato sanjeev [facility] 00:00:00 [code = INFLUENZA VACCINE] Future Scheduled 2002 Hepatitis C Solo [facility] Test 00:00:00 screening (procedure) [code = 505997577] Future Scheduled 2000 COVID-19 VACCINE (1) Dawin [place]onte [facility] 00:00:00 [code = COVID-19 VACCINE (1)] Encounters Start End Encounter Admission Attending Care Care Encounter Source Date/Time Date/Time Type Type Clinicians Facility Department ID 2020-10-27 2020-10-27 Outpatient SHRAVAN CARRANZA [facility] [id number] [place] 00:00:00 00:00:[address] 2020-10-27 2020-10-27 Outpatient SHRAVAN CARRANZA [facility] [id number] [place] 00:00:00 00:00:[address] Results Test Description Test Time Test Comments Results Result Sourc e Comments Shoulder left 2020-10-15 Shravan Carranza MD [place] cortisone 3 10/28/2020 10:29 [facility] injection 15:50:00 Matias left cortisone injectionConsent given by: patientSite marked: site markedTimeout: Immediately prior to procedure a time out was called to verify the correct patient, procedure, equipment, learning support services director and site/side marked as required Supporting DocumentationIndicatio [...]
[2021-02-20] MEDS ORDERED: NA CHLORIDE 0.9% 1,000 ML ONE (14:44)
[2021-02-20] MEDS ORDERED: MORPHINE 4 MG/ML SYR ONE (14:44)
[2021-02-20] MEDS ORDERED: ONDANSETRON 4 MG/2 ML VIAL ONE (14:44)
[2021-02-20 15:19] LABS: Absolute Lymphocytes (CBC) 1.9 K/uL (0.7-4.9); Basophils % 0.6 % (0-1.3); Hematocrit 43.3 % (39.6-49.0); Lymphocytes % 12.2 % (15.3-44.8); MPV 8.1 fL (7.6-11.3)
[2021-02-20 15:41] LABS: ALT/SGPT 22 U/L (12-78); AST/SGOT 10 U/L (15-37); Albumin 4.1 g/dL (3.4-5.0); Alkaline Phosphatase 78 U/L (45-117); BUN Blood Urea Nitrogen 9 mg/dL (7-18); Bicarbonate 25 mmol/L (21-32); Bilirubin Direct 0.2 mg/dL (0-0.2); Bilirubin Total 1.1 mg/dL (0.2-1.0); Glucose Level 105 mg/dL (74-106); Lipase 202 U/L (73-393); Potassium 3.8 mmol/L (3.5-5.1); Protein, Total 7.9 g/dL (6.4-8.2); Sodium Level 143 mmol/L (136-145)
--- NOTE | 2021-02-20 16:33 | RAD REPORT ---
EXAM DESCRIPTION: CT - Abdomen Pelvis W Contrast - 02/20/2021 4:05 pm CLINICAL HISTORY: Abdominal pain COMPARISON: 2019 TECHNIQUE: Computed axial tomography of the abdomen pelvis was obtained. 100 cc Isovue-300 was admin istered intravenously. Oral contrast was not requested which limits evaluation of bowel. All CT scans are performed using dose optimization technique as appropriate and may include automated exposure control or mA/KV adjustment according to patient size. FINDINGS: The liver, spleen, pancreas, adrenal and kidneys appear unremarkable. There is no evidence of diverticulitis. Bowel wall thickness is normal. Normal appendix IMPRESSION: No acute abnormality is displayed.
[2021-02-20] MEDS ORDERED: MEPERIDINE HCL 50 MG/ML ONE (16:51)
--- NOTE | 2021-02-20 16:55 | EDPHYS ---
Physician Documentation [facility] Name: Slava Biswas Age: 35 yrs Sex: Male : 1985 Arrival Date: 02/20/2021 Time: 13:33 Bed 15 Private MD: ED Physician Rei Noguera HPI: 02/20 14:30 This 35 yrs old Male presents to ER via Ambulatory with complaints of cp Abdominal Pain. 14:30 The patient presents with abdominal pain in the lower abdomen. Onset: The cp symptoms/episode began/occurred this morning. The symptoms do not radiate. Associated signs and symptoms: Pertinent positives: diarrhea, mucous in stools, Pertinent negatives: constipation, fever, vomiting. 14:30 The symptoms are described as constant. cp 14:30 Severity of pain: in the emergency department the pain is unchanged despite home cp interventions. 14:30 The patient has experienced similar episodes in the past, multiple times, today's cp symptoms are similar, to previous flare of ulcerative colitis. Historical: - Allergies: 14:07 No Known Allergies; bp - Home Meds: 14:07 mesalamine Oral [Active]; Prilosec 40 mg Oral cpDR 1 cap 2 times per day [Active]; bp - PMHx: 14:07 Colitis; GERD; ulcertive colitis; bp - Immunization history:: Adult Immunizations up to date. - Social history:: Smoking status: Patient denies any tobacco usage or history of. ROS: 14:35 Constitutional: Negative for body aches, chills, fever, poor PO intake. cp 14:35 Eyes: Negative for injury, pain, redness, and discharge. cp 14:35 ENT: Negative for ear pain, sore throat, difficulty swallowing, difficulty handling secretions. 14:35 Cardiovascular: Negative for chest pain, palpitations. 14:35 Respiratory: Negative for cough, shortness of breath, wheezing. 14:35 Abdomen/GI: Positive for abdominal pain, nausea, diarrhea, Negative for constipation, black/tarry stool, rectal bleeding. 14:35 Back: Negative for radiated pain. 14:35 Neuro: Negative for altered mental status, headache, weakness. 14:35 All other systems are negative. Exam: 14:40 Constitutional: The patient appears in no acute distress, alert, awake, non-toxic, well cp developed, well nourished. 14:40 Head/Face: Normocephalic, atraumatic. cp 14:40 Eyes: Periorbital structures: appear normal, Conjunctiva: normal, no exudate, no injection, Sclera: no appreciated abnormality, Lids and lashes: appear normal, bilaterally. 14:40 ENT: External ear(s): are unremarkable, Nose: is normal, Mouth: Lips: moist, Oral mucosa: moist, Posterior pharynx: Airway: no evidence of obstruction, patent. 14:40 Chest/axilla: Inspection: normal, Palpation: is normal, no crepitus, no tenderness. 14:40 Cardiovascular: Rate: tachycardic, Rhythm: regular. 14:40 Respiratory: the patient does not display signs of respiratory distress, Respirations: normal, no use of accessory muscles, no retractions, labored breathing, is not present, Breath sounds: are clear throughout, no decreased breath sounds. 14:40 Abdomen/GI: Inspection: abdomen appears normal, Bowel sounds: active, all quadrants, Palpation: soft, in all quadrants, mild abdominal tenderness, in the right lower quadrant and left lower quadrant, rebound tenderness, is not appreciated, involuntary guarding, is not appreciated. 14:40 Back: pain, is absent. 14:40 Neuro: Orientation: to person, place \T\ time. Mentation: is normal. 14:40 Special observations: complaints out of proportion to exam. Vital Signs: 14:04 BP 142 / 89; Pulse 107; Resp 16; Temp 98; Pulse Ox 98% ; Weight 111.13 kg; Height 5 ft. bp 10 in. (177.80 cm); 14:21 BP 137 / 95; Pulse 105; Resp 16; Pulse Ox 98% on R/A; vg1 15:00 BP 139 / 95; Pulse 83; Resp 16; Pulse Ox 97% on R/A; vg1 16:38 BP 131 / 84; Pulse 82; Resp 16; Pulse Ox 99% on R/A; vg1 18:00 BP 113 / 72; Pulse 80; Resp 16; Pulse Ox 99% on R/A; vg1 14:04 Body Mass Index 35.15 (111.13 kg, 177.80 cm) bp MDM: 14:04 Patient medically screened. umang 14:30 Differential diagnosis: appendicitis, bowel obstruction, diverticulitis, colitis. cp 16:54 Data reviewed: vital signs, nurses notes, lab test result(s), radiologic studies, CT cp scan. 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 Response to treatment: the patient's symptoms have markedly improved after treatment, and as a result, I will discharge patient. Special discussion: Based on the patient's Hx, exam, and Dx evaluation, there is no indication for emergent surgery or inpatient Tx. It is understood by the patient/guardian that if the Sx's persist or worsen they need to return immediately for re-evaluation. I discussed with the patient their frequent requests for pain medications. Instructions have been given, that in the best interests of the patient, further pain Rx's must come from the patient's PCP or a paint roller covers supervisor. 02/20 14:18 Order name: Basic Metabolic Panel; Complete Time: 15:46 cp 02/20 14:18 Order name: CBC with Diff; Complete Time: 15:46 cp 02/20 14:18 Order name: Hepatic Function; Complete Time: 15:46 cp 02/20 14:18 Order name: Lipase; Complete Time: 15:46 cp 02/20 15:47 Order name: CT Abd/Pelvis - IV Contrast Only; Complete Time: 16:44 cp 02/20 14:18 Order name: IV Saline Lock; Complete Time: 15:15 cp 02/20 14:18 Order name: Labs collected and sent; Complete Time: 15:15 cp Administered Medications: 14:48 Not Given (Duplicate Order): NS 0.9% 1000 ml IV at 1 bolus Per protocol; 1000 mL bolus vg1 15:10 Drug: NS 0.9% 1000 ml Route: IV; Rate: 1 bolus; Site: right antecubital; vg1 15:56 Follow up: IV Status: Completed infusion; IV Intake: 1000ml vg1 15:11 Drug: Zofran (Ondansetron) 4 mg Route: IVP; Site: right antecubital; vg1 15:56 Follow up: Response: No adverse reaction; Nausea is decreased vg1 15:12 Drug: morphine 4 mg Route: IVP; Site: right antecubital; vg1 15:56 Follow up: Response: No adverse reaction; Pain is unchanged, physician notified vg1 16:40 Drug: Demerol (meperidine) 50 mg Route: IVP; Site: right antecubital; vg1 17:19 Follow up: Response: No adverse reaction; Marked relief of symptoms; Pain is decreased ss 17:10 Drug: Cipro (ciprofloxacin) 500 mg Route: PO; ss 17:47 Follow up: Response: No adverse reaction vg1 17:12 Drug: SOLU-Medrol (methylPrednisoLONE) 125 mg Route: IVP; Site: right antecubital; ss 17:47 Follow up: Response: No adverse reaction vg1 17:15 Drug: metroNIDAZOLE 500 mg Volume: 100 ml; Route: IVPB; Infused Over: 30 mins; Site: ss right antecubital; 17:46 Follow up: IV Status: Completed infusion; IV Intake: 100ml vg1 Disposition: 02/21 10:03 Co-signature as Attending Physician, Rei Noguera MD I agree with the assessment and umang plan of care. Disposition: 02/20/21 16:55 Discharged to Home. Impression: Lower abdominal pain, unspecified. - Condition is Stable. - Discharge Instructions: Abdominal Pain, Adult. - Prescriptions for Zofran 4 mg Oral Tablet - take 1 tablet by ORAL route every 12 hours As needed; 20 tablet. Medrol (Thee) 4 mg Oral Tablets, Dose Pack - take 1 tablet by ORAL route as directed - follow package instructions; 1 packet. Cipro 500 mg Oral Tablet - take 1 tablet by ORAL route every 12 hours for 10 days; 20 tablet. Metronidazole 500 mg Oral Tablet - take 1 tablet by ORAL route every 8 hours; 30 tablet. - Medication Reconciliation Form, Thank You Letter, Antibiotic Education, Prescription Opioid Use, Work release form form. - Follow up: Private Physician; When: 2 - 3 days; Reason: Recheck today's complaints. - Problem is an acute exacerbation. - Symptoms have improved. Signatures: Dispatcher [employer] Rei Dowling MD MD cha Smirch, Shelby, RN RN ss Rei Gaytan PA PA cp Peltier, Brian, RN RN Marleni Gomez RN RN vg1 Corrections: (The following items were deleted from the chart) 02/20 18:26 16:55 02/20/2021 16:55 Discharged to Home. Impression: Lower abdominal pain, vg1 unspecified. Condition is Stable. Forms are Medication Reconciliation Form, Thank You Letter, Antibiotic Education, Prescription Opioid Use. Follow up: Private Physician; When: 2 - 3 days; Reason: Recheck today's complaints. Problem is an acute exacerbation. Symptoms have improved. cp 02/21 01:43 02/20 14:30 The patient presents with abdominal pain that is diffuse, cp cp
--- NOTE | 2021-02-20 16:55 | ER ---
Nurse's Notes [facility] Name: Slava Biswas Age: 35 yrs Sex: Male : 1985 Arrival Date: 02/20/2021 Time: 13:33 Bed 15 Private MD: Diagnosis: Lower abdominal pain, unspecified Presentation: 02/20 14:04 Chief complaint: Patient states: UC FLARE, BLQ PAIN WITH DIARRHEA. Coronavirus screen: bp At this time, the client does not indicate any symptoms associated with coronavirus-19. Ebola Screen: No symptoms or risks identified at this time. Initial Sepsis Screen: Does the patient meet any 2 criteria? HR > 90 bpm. No. Patient's initial sepsis screen is negative. Does the patient have a suspected source of infection? No. Patient's initial sepsis screen is negative. Risk Assessment: Do you want to hurt yourself or someone else? Patient reports no desire to harm self or others. Onset of symptoms was February 20, 2021 at 07:00. 14:04 Method Of Arrival: Ambulatory bp 14:04 Acuity: TRACEE 3 bp Triage Assessment: 14:07 General: Appears in no apparent distress. uncomfortable, Behavior is cooperative, bp appropriate for age, anxious. Pain: Complains of pain in abdomen. EENT: No deficits noted. Neuro: Level of Consciousness is awake, alert, obeys commands, Oriented to Appropriate for age. Cardiovascular: No deficits noted. Respiratory: No deficits noted. GI: Reports lower abdominal pain, diarrhea, nausea. : No signs and/or symptoms were reported regarding the genitourinary system. Derm: No deficits noted. Musculoskeletal: Circulation, motion, and sensation intact. Range of motion: intact in all extremities. Historical: - Allergies: 14:07 No Known Allergies; bp - Home Meds: 14:07 mesalamine Oral [Active]; Prilosec 40 mg Oral cpDR 1 cap 2 times per day [Active]; bp - PMHx: 14:07 Colitis; GERD; ulcertive colitis; bp - Immunization history:: Adult Immunizations up to date. - Social history:: Smoking status: Patient denies any tobacco usage or history of. Screenin:11 Abuse screen: Denies threats or abuse. Denies injuries from another. Nutritional bp screening: No deficits noted. Tuberculosis screening: No symptoms or risk factors identified. Fall Risk None identified. Assessment: 14:11 General: SEE TRIAGE NOTE. bp 14:19 General: Appears in no apparent distress. comfortable, Behavior is calm, cooperative. vg1 Pain: Complains of pain in right lower quadrant Pain currently is 7 out of 10 on a pain scale. Pain began this morning. Neuro: Level of Consciousness is awake, alert, obeys commands, Oriented to person, place, time, situation. Cardiovascular: Patient's skin is warm and dry. Respiratory: Airway is patent Respiratory effort is even, unlabored. GI: Bowel sounds present X 4 quads. Abdomen is tender to palpation in right lower quadrant Reports diarrhea, nausea. : No signs and/or symptoms were reported regarding the genitourinary system. EENT: No signs and/or symptoms were reported regarding the EENT system. Derm: Skin is intact, is healthy with good turgor. Musculoskeletal: Circulation, motion, and sensation intact. 16:37 Reassessment: Patient appears in no apparent distress at this time. No changes from vg1 previously documented assessment. Patient and/or family updated on plan of care and expected duration. Pain level reassessed. Patient is alert, oriented x 3, equal unlabored respirations, skin warm/dry/pink. 18:25 Reassessment: Patient appears in no apparent distress at this time. Patient and/or vg1 family updated on plan of care and expected duration. Pain level reassessed. Patient is alert, oriented x 3, equal unlabored respirations, skin warm/dry/pink. Vital Signs: 14:04 BP 142 / 89; Pulse 107; Resp 16; Temp 98; Pulse Ox 98% ; Weight 111.13 kg; Height 5 ft. bp 10 in. (177.80 cm); 14:21 BP 137 / 95; Pulse 105; Resp 16; Pulse Ox 98% on R/A; vg1 15:00 BP 139 / 95; Pulse 83; Resp 16; Pulse Ox 97% on R/A; vg1 16:38 BP 131 / 84; Pulse 82; Resp 16; Pulse Ox 99% on R/A; vg1 18:00 BP 113 / 72; Pulse 80; Resp 16; Pulse Ox 99% on R/A; vg1 14:04 Body Mass Index 35.15 (111.13 kg, 177.80 cm) bp ED Course: 13:33 Patient arrived in ED. bg2 14:01 Rei Gaytan PA is PHCP. cp 14:01 Rei Noguera MD is Attending Physician. cp 14:05 Triage completed. bp 14:07 Arm band placed on. bp 14:11 Patient has correct armband on for positive identification. Bed in low position. Call bp light in reach. Side rails up X2. 14:14 Marleni Murray, RN is Primary Nurse. vg1 15:09 Initial lab(s) drawn, by me, sent to lab. Inserted saline lock: 20 gauge in right vg1 antecubital area, using aseptic technique. Blood collected. 16:05 CT Abd/Pelvis - IV Contrast Only In Process Unspecified. EDMS 18:25 No provider procedures requiring assistance completed. IV discontinued, intact, vg1 bleeding controlled, No redness/swelling at site. Pressure dressing applied. Administered Medications: 14:48 Not Given (Duplicate Order): NS 0.9% 1000 ml IV at 1 bolus Per protocol; 1000 mL bolus vg1 15:10 Drug: NS 0.9% 1000 ml Route: IV; Rate: 1 bolus; Site: right antecubital; vg1 15:56 Follow up: IV Status: Completed infusion; IV Intake: 1000ml vg1 15:11 Drug: Zofran (Ondansetron) 4 mg Route: IVP; Site: right antecubital; vg1 15:56 Follow up: Response: No adverse reaction; Nausea is decreased vg1 15:12 Drug: morphine 4 mg Route: IVP; Site: right antecubital; vg1 15:56 Follow up: Response: No adverse reaction; Pain is unchanged, physician notified vg1 16:40 Drug: Demerol (meperidine) 50 mg Route: IVP; Site: right antecubital; vg1 17:19 Follow up: Response: No adverse reaction; Marked relief of symptoms; Pain is decreased ss 17:10 Drug: Cipro (ciprofloxacin) 500 mg Route: PO; ss 17:47 Follow up: Response: No adverse reaction vg1 17:12 Drug: SOLU-Medrol (methylPrednisoLONE) 125 mg Route: IVP; Site: right antecubital; ss 17:47 Follow up: Response: No adverse reaction vg1 17:15 Drug: metroNIDAZOLE 500 mg Volume: 100 ml; Route: IVPB; Infused Over: 30 mins; Site: ss right antecubital; 17:46 Follow up: IV Status: Completed infusion; IV Intake: 100ml vg1 Intake: 15:56 IV: 1000ml; Total: 1000ml. vg1 17:46 IV: 100ml; Total: 1100ml. vg1 Outcome: 16:55 Discharge ordered by . cp 18:26 Discharged to home ambulatory. vg1 18:26 Condition: stable 18:26 Discharge instructions given to patient, Instructed on discharge instructions, follow up and referral plans. medication usage, Demonstrated understanding of instructions, follow-up care, medications, Prescriptions given X 4. 18:26 Patient left the ED. vg1 Signatures: Dispatcher [employer] EDMS Ursula Encinas RN RN ss Simi Hall bg2 Rei Gaytan PA PA cp Peltier, Brian, RN RN Marleni Gomez RN RN vg1
[2021-02-20] MEDS ORDERED: CIPROFLOXACIN HCL 500 MG TAB ONE (17:29)
[2021-02-20] MEDS ORDERED: METHYLPREDNISOLONE 125 MG INJ ONE (17:29)
[2021-02-20] MEDS ORDERED: METRONIDAZOLE 500mg IVPB 500 MG/100 ML BAG IV ONE (17:30)
[2021-02-20 18:40] VITALS: TEMP 98
[2021-02-20 18:44] VITALS: O2SAT 99
[2021-02-20 18:46] VITALS: BP 113/72
== END 2021-02-20 18:26 | disposition home or self-care (01) ==
LOC: ER 13:31
DX: R10.30 Lower abdominal pain, unspecified (principal)
CPT/HCPCS: 85025; 80048; 36415; 80076; 83690; 74177; Q9967; J2175; J7030; J2930; J2405; 96361; 96365; 96375; 99284

== ENCOUNTER 2021-03-10 15:08 | Emergency (ER) | payer BC ==
--- OUTSIDE RECORDS SUMMARY | 2021-03-10 15:10 | XMS REPORT | Continuity of Care Document ---
:1985 Author Organization [facility] t Address [address] [place] [address] Care Team Providers Name Role Phone Fuad BRANHAM Primary Care Physician Dillon BRANHAM B. Attending Clinician Payers Payer Name Policy Type Policy Effective Date Expiration Date Sour ce Number BCBSANTHEM ANJALI [id number] 2017 [facility] [id number] 00:00:00 Methodis t 04/2018-PresentPP O Problems Condition [...] Date Stop Date Source Natural father Diabetes [facility] thodist Social History Social Habit Start Date Stop Date Quantity Comments Source Tobacco use and 2020-10-27 2020-10-27 Never used [facility] ethodist exposure 00:00:00 00:00:00 Alcohol intake 2020-10-27 2020-10-27 Lifetime [facility] thodist 00:00:00 00:00:00 non-drinker (finding) Sex Ass[birth year] [place] ethodist 00:00:00 00:00:00 Smoking Status Start Date Stop Date Source Never smoker Solo Daniel t Medications Ordered Filled Start Stop Current Ordering Indication Dosage Frequency Signature Comments Components Source Medication Medication Date Date Medication? Clinician (SIG) Name Name maggie 2020- No acute pain 1{tbl} Q6H Take 1 [facility] en-codeine 1-26 - tablet by Met sherman (TYLENOL 00:00: 23:[address] WITH 00 :00 every 6 CODEINE #3) (six) 300-30 mg hours as per tablet needed for moderate pain for up to 7 days .acute pain. bahmanph 2020- No acute pain 1{tbl} Q6H Take 1-2 Banda en-codeine 1-13 - tablets by Me pacheco (TYLENOL 00:00: 23:59 [...] VW LEFT 2020-10-27 16:09:04 Shravan Carranza on [facility] [place] ARTHROCENTESIS 2020-10-27 15:50:00 Shravan Carranza Ri néstor ASPIR&/INJ MAJOR JT/BURSA W/O US Plan of Care Planned Activity Planned Date Details Comments Source Future Scheduled 2021-05-15 INFLUENZA VACCINE Tomato sanjeev [facility] Test 00:00:00 [code = INFLUENZA VACCINE] Future Scheduled 2002 Hepatitis C Solo Bolaños hodist Test 00:00:00 screening (procedure) [code = 537001065] Future Scheduled 1996 COVID-19 VACCINE (1) Dwain aponte [facility] Test 00:00:00 [code = COVID-19 VACCINE (1)] Encounters Start End Encounter Admission Attending Care Care Encounter Source Date/Time Date/Time Type Type Clinicians Facility Department ID 2020-10-27 2020-10-27 Outpatient SHRAVAN CARRANZA [facility] [id number] [facility] 00:00:00 00:00:[address] 2020-10-27 2020-10-27 Outpatient SHRAVAN CARRANZA [facility] [id number] [facility] 00:00:00 00:00:[address] Results Test Description Test Time Test Comments Results Result Sourc e Comments Shoulder left 2020-10-15 Shravan Carranza MD [place] cortisone 3 10/28/2020 10:29 [facility] injection 15:50:00 Matias left cortisone injectionConsent given by: patientSite marked: site markedTimeout: Immediately prior to procedure a time out was called to verify the correct patient, procedure, equipment, business support administrator and site/side marked as required Supporting DocumentationIndicatio [...]
[2021-03-10 16:11] LABS: Absolute Lymphocytes (CBC) 1.5 K/uL (0.7-4.9); Basophils % 0.4 % (0-1.3); Hematocrit 41.8 % (39.6-49.0); Lymphocytes % 15.3 % (15.3-44.8); MPV 8.4 fL (7.6-11.3); RBC Red Blood Cell Count 4.58 M/uL (4.33-5.43)
[2021-03-10] MEDS ORDERED: METHYLPREDNISOLONE 125 MG INJ ONE (16:16)
[2021-03-10] MEDS ORDERED: ONDANSETRON 4 MG/2 ML VIAL ONE (16:17)
[2021-03-10] MEDS ORDERED: MORPHINE 4 MG/ML SYR ONE (16:17)
[2021-03-10] MEDS ORDERED: NA CHLORIDE 0.9% 1,000 ML ONE (16:17)
[2021-03-10 16:22] LABS: ALT/SGPT 83 U/L (12-78); AST/SGOT 39 U/L (15-37); Albumin 3.6 g/dL (3.4-5.0); Alkaline Phosphatase 91 U/L (45-117); BUN Blood Urea Nitrogen 9 mg/dL (7-18); Bicarbonate 27 mmol/L (21-32); Bilirubin Direct < 0.1 mg/dL (0-0.2); Bilirubin Total 0.5 mg/dL (0.2-1.0); Glucose Level 103 mg/dL (74-106); Lipase 184 U/L (73-393); Potassium 3.9 mmol/L (3.5-5.1); Protein, Total 7.4 g/dL (6.4-8.2); Sodium Level 145 mmol/L (136-145)
--- NOTE | 2021-03-10 16:28 | ER ---
Nurse's Notes [facility] Name: Slava Biswas Age: 35 yrs Sex: Male : 1985 Arrival Date: 03/10/2021 Time: 15:13 Bed 8 Private MD: Cecilio Merida Diagnosis: Lower abdominal pain, unspecified;Ulcerative colitis Presentation: 03/10 15:26 Chief complaint: Patient states: RLQ pain, UC flare up, diarrhea and nausea since this ca1 morning. Coronavirus screen: Client denies travel out of the [place] in the last 14 days. diarrhea, nausea, Client presents with at least one sign or symptom that may indicate coronavirus-19. Standard/surgical mask placed on the client. Provider contacted for isolation considerations. Ebola Screen: Patient negative for fever greater than or equal to 101.5 degrees Fahrenheit, and additional compatible Ebola Virus Disease symptoms Patient denies exposure to infectious person. Patient denies travel to an Ebola-affected area in the 21 days before illness onset. No symptoms or risks identified at this time. Initial Sepsis Screen: Does the patient meet any 2 criteria? No. Patient's initial sepsis screen is negative. Does the patient have a suspected source of infection? No. Patient's initial sepsis screen is negative. Risk Assessment: Do you want to hurt yourself or someone else? Patient reports no desire to harm self or others. Onset of symptoms was March 10, 2021. 15:26 Method Of Arrival: Ambulatory ca1 15:26 Acuity: TRACEE 3 ca1 Historical: - Allergies: 15:28 No Known Allergies; ca1 - Home Meds: 15:28 Prilosec 40 mg Oral cpDR 1 cap 2 times per day [Active]; mesalamine Oral [Active]; ca1 - PMHx: 15:28 Colitis; GERD; ulcertive colitis; ca1 - PSHx: 15:28 Hernia repair; Tonsillectomy; Deviated Septum Repair; ca1 - Immunization history:: Client reports receiving the 2nd dose of the Covid vaccine, Client reports receiving the 1st dose of the Covid vaccine, Flu vaccine is not up to date. - Social history:: Smoking status: Patient denies any tobacco usage or history of. Screenin:29 Abuse screen: Denies threats or abuse. Denies injuries from another. Nutritional hb screening: No deficits noted. Tuberculosis screening: No symptoms or risk factors identified. Fall Risk None identified. Assessment: 15:30 General: Appears in no apparent distress. Behavior is calm, cooperative. Pain: Pain hb currently is 8 out of 10 on a pain scale. Neuro: Level of Consciousness is awake, alert, obeys commands, Oriented to person, place, time, situation. Cardiovascular: Patient's skin is warm and dry. Respiratory: Respiratory effort is even, unlabored, Respiratory pattern is regular, symmetrical. GI: Reports lower abdominal pain. : No signs and/or symptoms were reported regarding the genitourinary system. EENT: No signs and/or symptoms were reported regarding the EENT system. Derm: Skin is pink, warm \T\ dry. Musculoskeletal: No signs and/or symptoms reported regarding the musculoskeletal system. 16:32 Reassessment: Patient appears in no apparent distress at this time. Patient and/or em family updated on plan of care and expected duration. Pain level reassessed. Patient is alert, oriented x 3, equal unlabored respirations, skin warm/dry/pink. Vital Signs: 15:26 BP 137 / 89; Pulse 106; Resp 18 S; Temp 97.3(TE); Pulse Ox 99% on R/A; Weight 113.4 kg ca1 (R); Height 5 ft. 10 in. (177.80 cm) (R); Pain 8/10; 16:32 BP 135 / 90; Pulse 88; Resp 18; Pulse Ox 99% on R/A; em 15:26 Body Mass Index 35.87 (113.40 kg, 177.80 cm) ca1 ED Course: 15:13 Patient arrived in ED. mr 15:13 Cecilio Merida MD is Private Physician. mr 15:27 Triage completed. ca1 15:28 Arm band placed on right wrist. ca1 15:29 Patient has correct armband on for positive identification. Bed in low position. Call hb light in reach. Side rails up X 1. 15:45 [facility] kb 15:45 Sinan Cole MD is Attending Physician. kb 15:51 Lavon Isbell, HARSHA is Primary Nurse. em 15:55 Inserted saline lock: 20 gauge in right antecubital area, using aseptic technique. kj1 Blood collected. 15:55 Initial lab(s) drawn, by ED staff, sent to lab. kj1 16:43 No provider procedures requiring assistance completed. IV discontinued, intact, em bleeding controlled, No redness/swelling at site. Pressure dressing applied. Administered Medications: 16:04 Drug: NS 0.9% 1000 ml Route: IV; Rate: 1000 ml; Site: right antecubital; em 16:45 Follow up: IV Status: Completed infusion; IV Intake: 1000ml em 16:04 Drug: Zofran (Ondansetron) 4 mg Route: IVP; Site: right antecubital; em 16:32 Follow up: Response: No adverse reaction em 16:06 Drug: morphine 4 mg Route: IVP; Site: right antecubital; em 16:32 Follow up: Response: No adverse reaction; Marked relief of symptoms; Pain is decreased em 16:08 Drug: SOLU-Medrol (methylPrednisoLONE) 125 mg Route: IVP; Site: right antecubital; em 16:32 Follow up: Response: No adverse reaction em 16:40 Drug: Demerol (meperidine) 25 mg Route: IVP; Site: right antecubital; em Intake: 16:45 IV: 1000ml; Total: 1000ml. em Outcome: 16:28 Discharge ordered by . kb 16:43 Discharged to home ambulatory. em 16:43 Condition: stable 16:43 Discharge instructions given to patient, Instructed on discharge instructions, follow up and referral plans. medication usage, Demonstrated understanding of instructions, follow-up care, medications, Prescriptions given X 2. 16:47 Patient left the ED. em Signatures: Veronica Holcomb, CASSY MEDINA-Desire RajanaMary Carmen Edgar, RN RN Esther Nice RN RN Vannessa Sanchez RN RN [facility] Ambar Holcomb kj1 Corrections: (The following items were deleted from the chart) 16:00 15:59 Initial lab(s) drawn, by ED staff, sent to lab. kj1 kj1
--- NOTE | 2021-03-10 16:28 | EDPHYS ---
Physician Documentation [facility] Name: Slava Biswas Age: 35 yrs Sex: Male : 1985 Arrival Date: 03/10/2021 Time: 15:13 Bed 8 Private MD: Cecilio Merida ED Physician Sinan Cole HPI: 03/10 16:15 This 35 yrs old Male presents to ER via Ambulatory with complaints of kb Abdominal Pain. 16:15 The patient presents with abdominal pain right lower quadrant. Onset: The kb symptoms/episode began/occurred this morning. The symptoms do not radiate. Associated signs and symptoms: Pertinent positives: diarrhea, nausea, Pertinent negatives: fever. The symptoms are described as constant. Modifying factors: The symptoms are alleviated by nothing, the symptoms are aggravated by nothing. Severity of pain: At its worst the pain was moderate in the emergency department the pain is unchanged. The patient has experienced similar episodes in the past, chronically. The patient has not recently seen a physician. UC flare that started this morning. reports pain, nausea and diarrhea. Historical: - Allergies: 15:28 No Known Allergies; ca1 - Home Meds: 15:28 Prilosec 40 mg Oral cpDR 1 cap 2 times per day [Active]; mesalamine Oral [Active]; ca1 - PMHx: 15:28 Colitis; GERD; ulcertive colitis; ca1 - PSHx: 15:28 Hernia repair; Tonsillectomy; Deviated Septum Repair; ca1 - Immunization history:: Client reports receiving the 2nd dose of the Covid vaccine, Client reports receiving the 1st dose of the Covid vaccine, Flu vaccine is not up to date. - Social history:: Smoking status: Patient denies any tobacco usage or history of. ROS: 16:14 Constitutional: Negative for fever, chills, and weight loss. kb 16:14 Abdomen/GI: Positive for abdominal pain, nausea, diarrhea. 16:14 All other systems are negative. Exam: 16:15 Constitutional: This is a well developed, well nourished patient who is awake, alert, kb and in no acute distress. Head/Face: Normocephalic, atraumatic. ENT: Moist Mucous membranes Respiratory: Respirations even and unlabored. No increased work of breathing, no retractions or nasal flaring. Skin: Warm, dry with normal turgor. Normal color. MS/ Extremity: Pulses equal, no cyanosis. Neurovascular intact. Full, normal range of motion. Neuro: Awake and alert, GCS 15, oriented to person, place, time, and situation. Moves all extremities. Normal gait. Psych: Awake, alert, with orientation to person, place and time. Behavior, mood, and affect are within normal limits. 16:15 Abdomen/GI: Inspection: abdomen appears normal, Bowel sounds: normal, in all quadrants, Palpation: soft, in all quadrants, mild abdominal tenderness, in the right lower quadrant. Vital Signs: 15:26 BP 137 / 89; Pulse 106; Resp 18 S; Temp 97.3(TE); Pulse Ox 99% on R/A; Weight 113.4 kg ca1 (R); Height 5 ft. 10 in. (177.80 cm) (R); Pain 8/10; 16:32 BP 135 / 90; Pulse 88; Resp 18; Pulse Ox 99% on R/A; em 15:26 Body Mass Index 35.87 (113.40 kg, 177.80 cm) ca1 MDM: 15:47 Patient medically screened. kb 16:14 Data reviewed: vital signs, nurses notes. Data interpreted: Pulse oximetry: on room air kb is 99 %. Interpretation: normal. 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 03/10 15:45 Order name: Basic Metabolic Panel; Complete Time: 16:27 kb 03/10 15:45 Order name: CBC with Diff; Complete Time: 16:13 kb 03/10 15:45 Order name: Hepatic Function; Complete Time: 16:27 kb 03/10 15:45 Order name: Lipase; Complete Time: 16:27 kb 03/10 15:45 Order name: IV Saline Lock; Complete Time: 16:00 kb 03/10 15:45 Order name: Labs collected and sent; Complete Time: 16:00 kb Administered Medications: 16:04 Drug: NS 0.9% 1000 ml Route: IV; Rate: 1000 ml; Site: right antecubital; em 16:45 Follow up: IV Status: Completed infusion; IV Intake: 1000ml em 16:04 Drug: Zofran (Ondansetron) 4 mg Route: IVP; Site: right antecubital; em 16:32 Follow up: Response: No adverse reaction em 16:06 Drug: morphine 4 mg Route: IVP; Site: right antecubital; em 16:32 Follow up: Response: No adverse reaction; Marked relief of symptoms; Pain is decreased em 16:08 Drug: SOLU-Medrol (methylPrednisoLONE) 125 mg Route: IVP; Site: right antecubital; em 16:32 Follow up: Response: No adverse reaction em 16:40 Drug: Demerol (meperidine) 25 mg Route: IVP; Site: right antecubital; em Disposition: 18:57 Co-signature as Attending Physician, Sinan Cole MD I agree with the assessment and kdr plan of care. Disposition: 03/10/21 16:28 Discharged to Home. Impression: Lower abdominal pain, unspecified, Ulcerative colitis. - Condition is Stable. - Discharge Instructions: Ulcerative Colitis, Adult. - Prescriptions for Zofran 4 mg Oral Tablet - take 1 tablet by ORAL route every 6 hours As needed; 20 tablet. Medrol (Thee) 4 mg Oral Tablets, Dose Pack - take 1 tablet by ORAL route as directed - follow package instructions; 1 packet. - Medication Reconciliation Form, Thank You Letter, Antibiotic Education, Prescription Opioid Use form. - Follow up: Emergency Department; When: As needed; Reason: Worsening of condition. Follow up: Private Physician; When: 2 - 3 days; Reason: Recheck today's complaints, Continuance of care, Re-evaluation by your physician. Signatures: Dispatcher [employer] EDAK Veronica Holcomb, TONEC Sinan Osorio MD MD kdr Lavon Isbell, HARSHA RN em Vannessa Sanchez RN RN ca1 Corrections: (The following items were deleted from the chart) 16:14 16:14 Abdomen/GI: Positive for abdominal pain, kb kb 16:47 16:28 03/10/2021 16:28 Discharged to Home. Impression: Lower abdominal pain, em unspecified; Ulcerative colitis. Condition is Stable. Discharge Instructions: Ulcerative Colitis, Adult. Prescriptions for Zofran 4 mg Oral Tablet - take 1 tablet by ORAL route every 6 hours As needed; 20 tablet, Medrol (Thee) 4 mg Oral Tablets, Dose Pack - take 1 tablet by ORAL route as directed - follow package instructions; 1 packet. and Forms are Medication Reconciliation Form, Thank You Letter, Antibiotic Education, Prescription Opioid Use. Follow up: Emergency Department; When: As needed; Reason: Worsening of condition. Follow up: Private Physician; When: 2 - 3 days; Reason: Recheck today's complaints, Continuance of care, Re-evaluation by your physician. kb
[2021-03-10 16:53] VITALS: TEMP 97.3; O2SAT 99
[2021-03-10 16:54] VITALS: BP 135/90
[2021-03-10] MEDS ORDERED: MEPERIDINE HCL 25 MG/ML SYR ONE (16:54)
== END 2021-03-10 16:47 | disposition home or self-care (01) ==
LOC: ER 15:08
DX: K51.90 Ulcerative colitis, unspecified, without complications (principal); K21.9 Gastro-esophageal reflux disease without esophagitis
CPT/HCPCS: 96361; 85025; 80048; 36415; 80076; 83690; 96375; 96374; 99284; J2175; J7030; J2930; J2405

== ENCOUNTER 2021-04-13 17:42 | Emergency (ER) | payer BC ==
--- OUTSIDE RECORDS SUMMARY | 2021-04-13 17:45 | XMS REPORT | Continuity of Care Document ---
:1985 Author Organization [facility] t Address [address] [place] [address] Care Team Providers Name Role Phone Fuad BRANHAM Primary Care Physician Liv Carranza MD. Attending Clinician Payers Payer Name Policy Type Policy Effective Date Expiration Date Sour ce Number BCBSANTHEM ANJALI [id number] 2017 [place] [id number] 00:00:00 Methodis t 04/2018-PresentPP O Problems Condition [...] Date Stop Date Source Natural father Diabetes [facility] Social History Social Habit Start Date Stop Date Quantity Comments Source Tobacco use and 2020-10-27 2020-10-27 Never used [facility] ethodist exposure 00:00:00 00:00:00 Alcohol intake 2020-10-27 2020-10-27 Lifetime [facility] 00:00:00 00:00:00 non-drinker (finding) Sex Ass[birth year] [facility] ethodist 00:00:00 00:00:00 Smoking Status Start Date Stop Date Source Never smoker Solo Daniel t Medications Ordered Filled Start Stop Current Ordering Indication Dosage Frequency Signature Comments Components Source Medication Medication Date Date Medication? Clinician (SIG) Name Name maggie 2020- No acute pain 1{tbl} Q6H Take 1 [place] en-codeine 1-26 - tablet by Met sherman [...] VW LEFT 2020-10-27 16:09:04 Shravan Carranza on Rastafari MA ARTHROCENTESIS 2020-10-27 15:50:00 Shravan Carranza Dc néstor ASPIR&/INJ MAJOR JT/BURSA W/O US Plan of Care Planned Activity Planned Date Details Comments Source Future Scheduled 2021-05-15 INFLUENZA VACCINE Tomato sanjeev Rast[facility]ari Test 00:00:00 [code = INFLUENZA VACCINE] Future Scheduled 2002 Hepatitis C Solo [facility] hodist Test 00:00:00 screening (procedure) [code = 079575160] Future Scheduled 1996 COVID-19 VACCINE (1) Dwain aponte Rastafari Test 00:00:00 [code = COVID-19 VACCINE (1)] Encounters Start End Encounter Admission Attending Care Care Encounter Source Date/Time Date/Time Type Type Clinicians Facility Department ID 2020-10-27 2020-10-27 Outpatient [facility] [id number] [place] 00:00:00 00:00:[address] 2020-10-27 2020-10-27 Outpatient [facility] [id number] [place] 00:00:00 00:00:[address] Results Test Description Test Time Test Comments Results Result Sourc e Comments Shoulder left 2020-10-15 Shravan Carranza MD [place] cortisone 3 10/28/2020 10:29 Rastafari injection 15:50:00 Matias left cortisone injectionConsent given by: patientSite marked: site markedTimeout: Immediately prior to procedure a time out was called to verify the correct patient, procedure, equipment, clerical and office support workers and site/side marked as required Supporting DocumentationIndicatio [...]
--- NOTE | 2021-04-13 21:49 | ER ---
Nurse's Notes [facility] Name: Slava Biswas Age: 35 yrs Sex: Male : 1985 Arrival Date: 04/13/2021 Time: 17:43 Bed External Waiting Private MD: Diagnosis: Presentation: 04/13 18:12 Chief complaint: Patient states: RLQ abd pain since 829, N/D, denies vomiting. jl7 Coronavirus screen: Client denies travel out of the [place] in the last 14 days. At this time, the client does not indicate any symptoms associated with coronavirus-19. Ebola Screen: No symptoms or risks identified at this time. Initial Sepsis Screen: Does the patient meet any 2 criteria? No. Patient's initial sepsis screen is negative. Does the patient have a suspected source of infection? No. Patient's initial sepsis screen is negative. Risk Assessment: Do you want to hurt yourself or someone else? Patient reports no desire to harm self or others. Onset of symptoms was April 13, 2021 at 08:30. Care prior to arrival: None. 18:12 Method Of Arrival: Ambulatory [facility] 18:12 Acuity: TRACEE 3 jl7 Historical: - Allergies: 18:14 No Known Allergies; jl7 - PMHx: 18:14 Colitis; GERD; ulcertive colitis; jl7 - PSHx: 18:14 hernia repair; Tonsillectomy; jl7 - Immunization history:: Adult Immunizations up to date, Client reports receiving the 2nd dose of the Covid vaccine. - Social history:: Smoking status: Patient denies any tobacco usage or history of. Assessment: 19:51 Reassessment: pt called in waiting room with no answer. tr6 Vital Signs: 18:12 BP 124 / 82; Pulse 96; Resp 15; Temp 97.2; Pulse Ox 100% on R/A; Weight 108.86 kg; jl7 Height 5 ft. 10 in. (177.80 cm); Pain 8/10; 18:12 Body Mass Index 34.44 (108.86 kg, 177.80 cm) jl7 ED Course: 17:43 Patient arrived in ED. as 18:13 Triage completed. jl7 18:14 Arm band placed on right wrist. jl7 19:46 Ramnanan, Magdalena, RN is Primary Nurse. tr6 19:51 Luis Carlos Thomas PA is PHCP. jr8 19:51 Mary Ervin MD is Attending Physician. jr8 Administered Medications: No medications were administered Outcome: 21:48 Patient left the ED. em Signatures: Lavon Isbell, RN RN em Malini Velazquez Josh, PA PA jr8 Brittny Zepeda RN RN jl7 Magdalena Mcduffie RN RN tr6
[2021-04-13 22:16] VITALS: BP 124/82; TEMP 97.2; O2SAT 100
== END 2021-04-13 21:48 | disposition left against medical advice (07) ==
LOC: ER 17:42
DX: Z02.9 Encounter for administrative examinations, unspecified (principal)

== ENCOUNTER 2021-10-16 12:35 | Emergency (ER) | payer BC ==
--- OUTSIDE RECORDS SUMMARY | 2021-10-16 12:38 | XMS REPORT | Continuity of Care Document ---
:1985 Author Organization [facility] t Address [address] [place] [address] Care Team Providers Name Role Phone BRY [...] ID 2020-10-27 2020-10-27 Outpatient BRY [facility] [id number] [place] 00:00:00 00:00:[address] 2020-10-27 2020-10-27 Outpatient [facility] [facility] [id number] [place] 00:00:00 00:00:[address] Results This patient has no known results.
[2021-10-16 13:17] LABS: Absolute Lymphocytes (CBC) 1.8 K/uL (0.7-4.9); Hematocrit 44.2 % (39.6-49.0); Lymphocytes % 31.9 % (15.3-44.8); MPV 8.2 fL (7.6-11.3); RBC Red Blood Cell Count 4.76 M/uL (4.33-5.43)
[2021-10-16 13:35] LABS: Albumin 3.7 g/dL (3.4-5.0); Bilirubin Direct 0.1 mg/dL (0-0.2); Bilirubin Total 0.7 mg/dL (0.2-1.0); Potassium 3.8 mmol/L (3.5-5.1); Protein, Total 7.8 g/dL (6.4-8.2)
[2021-10-16] MEDS ORDERED: ONDANSETRON 4 MG/2 ML VIAL ONE (14:45)
[2021-10-16] MEDS ORDERED: NA CHLORIDE 0.9% 1,000 ML ONE (14:46)
--- NOTE | 2021-10-16 15:27 | RAD REPORT ---
EXAM DESCRIPTION: RAD - Abdomen Acute Series - 10/16/2021 3:19 pm CLINICAL HISTORY: ABD PAIN COMPARISON: Abdomen Acute Series dated 10/19/2020; Chest Single View dated 07/07/2020; Abdomen Acute Se david dated 05/26/2019; Abdomen 1 View (KUB) dated 10/22/2016Abdomen Acute Series dated 10/19/2020; Chest S amanda View dated 07/07/2020; Abdomen Acute Series dated 05/26/2019; Abdomen 1 View (KUB) dated 10/22/2016 FINDINGS: Nonobstructive bowel gas pattern. No acute osseous abnormality.The lungs are clear.No abno rmal calcifications. No free air were air-fluid levels. IMPRESSION: Nonobstructive bowel gas pattern. No acute cardiopulmonary disease.
[2021-10-16] MEDS ORDERED: HYDROMORPHONE HCL 1 MG/ML INJ ONE (16:23)
[2021-10-16] MEDS ORDERED: FAMOTIDINE 20 MG/2 ML VIAL IV ONE (16:23)
--- NOTE | 2021-10-16 16:36 | RAD REPORT ---
EXAM DESCRIPTION: CTAbdomen W Contrast - 10/16/2021 4:19 pm CLINICAL HISTORY: ABD PAIN COMPARISON: Abdomen Pelvis W Contrast dated 02/20/2021; Abdomen Pelvis W Contrast dated 09/06/2020 ; Abdomen Pelvis W Contrast dated 10/12/2019; Abdomen Pelvis W Contrast dated 06/29/2018 TECHNIQUE: CT of the abdomen and pelvis was performed. All CT scans are performed using dose optimization technique as appropriate and may include automated exposure control or mA/KV adjustment according to patient size. FINDINGS: Lower chest: No acute abnormality. Small hiatal hernia. Liver: No acute abnormality or suspicious lesions. Biliary: No biliary ductal dilatation. Stomach: No significant focal abnormality. Duodenum: No significant focal abnormality. Pancreas: No significant abnormality. Spleen: No significant abnormality. Adrenal: No suspicious lesions. Kidney/ureter: No hydronephrosis. No renal calculi. Retroperitoneum: No retroperitoneal adenopathy. Vascular: No aneurysm. Bowel: No significant focal abnormality. Normal appendix. Peritoneum: No ascites or free air. Bones: No acute fracture. Other: n/a IMPRESSION: No acute intra-abdominal abnormality.
--- NOTE | 2021-10-16 16:50 | ER ---
Nurse's Notes [facility] Name: Slava Biswas Age: 36 yrs Sex: Male : 1985 Arrival Date: 10/16/2021 Time: 12:37 Bed 12 Private MD: Diagnosis: Abdominal pain, Generalized;Upper abdominal pain, unspecified Presentation: 10/16 13:03 Chief complaint: Patient states: RUQ pain into belly button, started yesterday, feels iw different than his UC flare ups. Coronavirus screen: At this time, the client does not indicate any symptoms associated with coronavirus-19. Ebola Screen: Patient negative for fever greater than or equal to 101.5 degrees Fahrenheit, and additional compatible Ebola Virus Disease symptoms Patient denies exposure to infectious person. Patient denies travel to an Ebola-affected area in the 21 days before illness onset. No symptoms or risks identified at this time. Initial Sepsis Screen: Does the patient meet any 2 criteria? No. Patient's initial sepsis screen is negative. Does the patient have a suspected source of infection? No. Patient's initial sepsis screen is negative. Risk Assessment: Do you want to hurt yourself or someone else? Patient reports no desire to harm self or others. Onset of symptoms was October 15, 2021. 13:03 Method Of Arrival: Ambulatory iw 13:03 Acuity: TRACEE 3 iw Triage Assessment: 16:00 General: Appears in no apparent distress. Behavior is calm, cooperative. iw Historical: - Allergies: 13:05 No Known Allergies; iw - PMHx: 13:05 GERD; Colitis; ulcertive colitis; iw - PSHx: 13:05 hernia repair; Tonsillectomy; iw Screenin:24 Abuse screen: Denies threats or abuse. Denies injuries from another. Nutritional iw screening: No deficits noted. Tuberculosis screening: No symptoms or risk factors identified. Fall Risk None identified. Assessment: 13:30 General: Appears in no apparent distress. Behavior is calm, cooperative. Pain: iw Complains of pain in right upper quadrant and anterior aspect of left lateral abdomen. Neuro: Level of Consciousness is awake, alert, obeys commands, Oriented to person, place, time, situation, Moves all extremities. Full function. Cardiovascular: Patient's skin is warm and dry. Respiratory: Respiratory effort is even, unlabored, Respiratory pattern is regular, symmetrical. GI: Bowel sounds present X 4 quads. Abd is soft X 4 quads. Derm: Skin is intact, is healthy with good turgor. Vital Signs: 13:03 Pulse 105; Resp 16; Temp 97.9; Pulse Ox 100% ; Weight 108.86 kg; Height 5 ft. 10 in. iw (177.80 cm); Pain 7/10; 14:50 BP 155 / 101; iw 13:03 Body Mass Index 34.44 (108.86 kg, 177.80 cm) iw ED Course: 12:37 Patient arrived in ED. ds1 12:53 Sinan Cole MD is Attending Physician. kdr 13:05 Triage completed. iw 13:10 Initial lab(s) drawn, by me, sent to lab. Inserted saline lock: 20 gauge in left kj1 antecubital area, using aseptic technique. Blood collected. 13:30 Arm band placed on. iw 14:08 Jolene Ware, RN is Primary Nurse. iw 15:19 Abdomen Acute Series XRAY In Process Unspecified. EDMS 16:19 CT Abdomen - IV Contrast Only In Process Unspecified. EDMS 17:24 No provider procedures requiring assistance completed. IV discontinued, intact, iw bleeding controlled, No redness/swelling at site. Pressure dressing applied. Administered Medications: 14:54 Drug: NS 0.9% 1000 ml Route: IV; Rate: 1 bolus; Site: right antecubital; iw 16:00 Follow up: IV Status: Completed infusion iw 14:54 Drug: Zofran (Ondansetron) 4 mg Route: IVP; Site: right antecubital; iw 15:30 Follow up: Response: No adverse reaction iw 16:36 Drug: Dilaudid (HYDROmorphone) 1 mg Route: IVP; Site: right antecubital; iw 17:00 Follow up: Response: No adverse reaction iw 16:37 Drug: Pepcid (famotidine) 20 mg Route: IVP; Site: right antecubital; iw 17:00 Follow up: Response: No adverse reaction iw Outcome: 16:49 Discharge ordered by . kdr 17:24 Discharged to home ambulatory. iw 17:24 Condition: good 17:24 Discharge instructions given to patient, Instructed on discharge instructions, follow up and referral plans. Demonstrated understanding of instructions. 17:25 Patient left the ED. iw Signatures: Dispatcher [employer] Sinan Matthew MD MD kdr Sanford, Demi ds1 Joelne Ware RN RN Ambar Richards kj1
--- NOTE | 2021-10-16 16:51 | EDPHYS ---
Physician Documentation [facility] Name: Slava Biswas Age: 36 yrs Sex: Male : 1985 Arrival Date: 10/16/2021 Time: 12:37 Bed 12 Private MD: ED Physician Sinan Cole HPI: 10/16 15:39 This 36 yrs old Male presents to ER via Ambulatory with complaints of Abdominal Pain. kdr 15:39 The patient presents with abdominal pain in the upper abdomen, in the right upper kdr quadrant. Onset: The symptoms/episode began/occurred gradually, 2 day(s) ago. The symptoms radiate to the right flank. Associated signs and symptoms: Pertinent positives: anorexia, nausea, Pertinent negatives: blood in stools, chest pain, constipation, diarrhea, dysuria, headache, hematuria, palpitations, testicular pain, vomiting, vomiting blood. The symptoms are described as achy, crampy, sharp, waxing/waning. Modifying factors: The symptoms are alleviated by nothing, the symptoms are aggravated by nothing. Severity of pain: At its worst the pain was moderate severe just prior to arrival, a 7 / 10 in the emergency department the pain is unchanged. The patient has experienced similar episodes in the past, multiple times, chronically. Historical: - Allergies: 13:05 No Known Allergies; iw - PMHx: 13:05 GERD; Colitis; ulcertive colitis; iw - PSHx: 13:05 hernia repair; Tonsillectomy; iw ROS: 15:39 Constitutional: Negative for fever, chills, and weight loss, Eyes: Negative for injury, kdr pain, redness, and discharge, ENT: Negative for injury, pain, and discharge, Neck: Negative for injury, pain, and swelling, Cardiovascular: Negative for chest pain, palpitations, and edema, Respiratory: Negative for shortness of breath, cough, wheezing, and pleuritic chest pain, Back: Negative for injury and pain, : Negative for injury, bleeding, discharge, and swelling, MS/Extremity: Negative for injury and deformity, Skin: Negative for injury, rash, and discoloration, Neuro: Negative for headache, weakness, numbness, tingling, and seizure activity. Psych: Negative for depression, anxiety, suicide ideation, homicidal ideation, and hallucinations, Allergy/Immunology: Negative for hives, rash, and allergies, Endocrine: Negative for neck swelling, polydipsia, polyuria, polyphagia, and marked weight changes, Hematologic/Lymphatic: Negative for swollen nodes, abnormal bleeding, and unusual bruising. 15:39 Abdomen/GI: Positive for abdominal pain, nausea, Negative for constipation, abdominal cramps, abdominal distension, anorexia, dysphagia, hematemesis, black/tarry stool, rectal pain, rectal bleeding, bowel incontinence. 15:39 MS/extremity: Positive for Exam: 15:39 Constitutional: This is a well developed, well nourished patient who is awake, alert, kdr and in no acute distress. Head/Face: Normocephalic, atraumatic. Eyes: Pupils equal round and reactive to light, extra-ocular motions intact. Lids and lashes normal. Conjunctiva and sclera are non-icteric and not injected. Cornea within normal limits. Periorbital areas with no swelling, redness, or edema. Neck: Trachea midline, no thyromegaly or masses palpated, and no cervical lymphadenopathy. Supple, full range of motion without nuchal rigidity, or vertebral point tenderness. No Meningismus. Chest/axilla: Normal chest wall appearance and motion. Nontender with no deformity. No lesions are appreciated. Cardiovascular: Regular rate and rhythm with a normal S1 and S2. No gallops, murmurs, or rubs. Normal PMI, no JVD. No pulse deficits. Respiratory: Lungs have equal breath sounds bilaterally, clear to auscultation and percussion. No rales, rhonchi or wheezes noted. No increased work of breathing, no retractions or nasal flaring. Back: No spinal tenderness. No costovertebral tenderness. Full range of motion. Skin: Warm, dry with normal turgor. Normal color with no rashes, no lesions, and no evidence of cellulitis. MS/ Extremity: Pulses equal, no cyanosis. Neurovascular intact. Full, normal range of motion. Neuro: Awake and alert, GCS 15, oriented to person, place, time, and situation. Cranial nerves II-XII grossly intact. Motor strength 5/5 in all extremities. Sensory grossly intact. Cerebellar exam normal. Normal gait. Psych: Awake, alert, with orientation to person, place and time. Behavior, mood, and affect are within normal limits. 15:39 Abdomen/GI: Inspection: abdomen appears normal, Bowel sounds: diminished, in all quadrants, Palpation: soft, moderate abdominal tenderness, in the anterior aspect of left lateral abdomen, right upper quadrant and left upper quadrant. Vital Signs: 13:03 Pulse 105; Resp 16; Temp 97.9; Pulse Ox 100% ; Weight 108.86 kg; Height 5 ft. 10 in. iw (177.80 cm); Pain 7/10; 14:50 BP 155 / 101; iw 13:03 Body Mass Index 34.44 (108.86 kg, 177.80 cm) iw MDM: 16:49 Patient medically screened. kdr 18:57 Data reviewed: vital signs, nurses notes, lab test result(s), radiologic studies. kdr Counseling: I had a detailed discussion with the patient and/or guardian regarding: the historical points, exam findings, and any diagnostic results supporting the discharge/admit diagnosis, lab results, radiology results, the need for outpatient follow up. 10/16 13:05 Order name: Basic Metabolic Panel; Complete Time: 14:21 iw 10/16 13:05 Order name: CBC with Diff; Complete Time: 14:21 iw 10/16 13:05 Order name: Hepatic Function; Complete Time: 14:21 iw 10/16 13:05 Order name: Lipase; Complete Time: 14:21 iw 10/16 14:50 Order name: Abdomen Acute Series XRAY; Complete Time: 15:39 kdr 10/16 15:37 Order name: CT Abdomen - IV Contrast Only; Complete Time: 16:48 kdr 10/16 13:05 Order name: IV Saline Lock; Complete Time: 13:28 iw 10/16 13:05 Order name: Labs collected and sent; Complete Time: 13:28 iw Administered Medications: 14:54 Drug: NS 0.9% 1000 ml Route: IV; Rate: 1 bolus; Site: right antecubital; iw 16:00 Follow up: IV Status: Completed infusion iw 14:54 Drug: Zofran (Ondansetron) 4 mg Route: IVP; Site: right antecubital; iw 15:30 Follow up: Response: No adverse reaction iw 16:36 Drug: Dilaudid (HYDROmorphone) 1 mg Route: IVP; Site: right antecubital; iw 17:00 Follow up: Response: No adverse reaction iw 16:37 Drug: Pepcid (famotidine) 20 mg Route: IVP; Site: right antecubital; iw 17:00 Follow up: Response: No adverse reaction iw Disposition Summary: 10/16/21 16:49 Discharge Ordered Location: Home kdr Problem: an acute exacerbation kdr Symptoms: have improved kdr Condition: Stable kdr Diagnosis - Abdominal pain, Generalized kdr - Upper abdominal pain, unspecified kdr Followup: kdr - With: Private Physician - When: 2 - 3 days - Reason: If symptoms return, Further diagnostic work-up, Recheck today's complaints, Continuance of care, Re-evaluation by your physician Discharge Instructions: - Discharge Summary Sheet kdr - Abdominal Pain, Adult, [id number] kdr Forms: - Medication Reconciliation Form kdr - Thank You Letter kdr Signatures: Dispatcher [employer] Sinan Matthew MD MD kdr Jolene Ware RN RN iw
[2021-10-16 17:32] VITALS: TEMP 97.9; O2SAT 100
[2021-10-16 17:33] VITALS: BP 155/101
== END 2021-10-16 17:25 | disposition home or self-care (01) ==
LOC: ER 12:35
DX: R10.84 Generalized abdominal pain (principal); K21.9 Gastro-esophageal reflux disease without esophagitis
CPT/HCPCS: 96361; 85025; 80048; 36415; 80076; 83690; 74160; 74022; 96375; 96374; 99284; Q9967; J1170; J7030; J2405

== ENCOUNTER 2023-04-25 12:46 | Emergency (ER) | payer BC ==
--- OUTSIDE RECORDS SUMMARY | 2023-04-25 12:51 | XMS REPORT | Continuity of Care Document ---
:1985 Author Organization [facility] t Address 1200 [facility] [address] [place] [address] Care Team Providers Name Role Phone Tyron Lopez DO Primary Care Physician MARKUS MOREIRA Attending Clinician Unavailable Husam Parra Attending Clinician Unavailable GC_CPC_Maldonado_E Attending Clinician Unavailable Lizarraga_V Attending Clinician Unavailable Miguel Govea MD Attending Clinician [phone] Juan Manuel Rosales MD Attending Clinician Adriana Mukherjee CRNA Attending Clinician DR CHARLETTE CHOW(ANGELA) Attending Clinician Unavailable GC_CPC_Nurse Attending Clinician Unavailable Markus Moreira Attending Clinician TYRON LOPEZ Attending Clinician Unavailable Sary Aguero MD Attending Clinician Siena Hernandez MD Attending Clinician Tyron Lopez DO Attending Clinician SHRAVAN LONDONO Attending Clinician Unavailable GC_CPC_Maldonado_E Admitting Clinician Unavailable Lizarraga_V Admitting Clinician Unavailable MIGUEL GOVEA Admitting Clinician Unavailable DR CHARLETTE CHOW(ANGELA) Admitting Clinician Unavailable GC_CPC_Nurse Admitting Clinician Unavailable Payers Payer Name Policy Type Policy Number Effective Date Expiration Date S lizette [facility]: [facility] [id number] 2017 EMPLOYEE PROGRAM 00:00:00 (PPO) [facility]: ANTHEM [id number] 2017 [facility] - [employer]AL 00:00:00 EMPLOYEE PROGRAM [id number] 1959 00:00:00 BC 2 [id number] 2021 00:00:00 Problems Condition Condition Condition Status Onset Resolution Last Treating Co mments Source Name Details Category Date Date Treatment Clinician Date Spermatoce Spermatoce Problem Active H oufay le le 6-24 [facility] 00:00: Urology 00 R10.9 / R10.9 / Diagnosis Active 2022-04-14 Memoria R39.9 R39.9 04-12 15:43:00 l Active 00:00: Al 04/12/2022 00 [facility] Acute pain Acute pain Disease Active K elsey of right of right 4-25 Seybol d shoulder shoulder 00:00: 00 Fall Fall Disease Active Jaz 4-25 Seybold 00:00: 00 History of History of Disease Active K elsey rotator rotator 4-25 Seybold cuff cuff 00:00: surgery surgery 00 Pain in Pain in Disease Active Jaz left left 4-25 Seybold testicle testicle 00:00: 00 Spermatoce Spermatoce Disease Active K chun le le 4-25 Seybold 00:00: 00 Class 1 Class 1 Disease Active Jaz obesity obesity 4-25 Seybold due to due to 00:00: excess excess 00 calories calories without without serious serious comorbidit comorbidit y with y with body mass body mass index index (BMI) of (BMI) of 33.0 to 33.0 to 33.9 in 33.9 in adult adult Gastroesop Gastroesop Disease Active Overview : Jaz hageal hageal 4-25 Formattin Seybold reflux reflux 00:00: g of this disease disease 00 note without without might be esophagiti esophagiti different s s from the original. GI-Dr. Lundberg, EGD 2019-Krista ritis Strain of Strain of Disease Active [facility] left left 1-14 st shoulder shoulder 00:00: Hospit a 00 l Injury of Injury of Disease Active [facility] left left 1-14 st shoulder shoulder 00:00: Hospit a 00 l Urinary Urinary Problem Active 2022-04-26 Me moria symptoms symptoms 21:33:41 l (finding) (finding) Herm chuck Active Problem 04/26/2022 [facility] Flank pain Flank Problem Active 2022-04-26 M emoria (finding) pain 21:33:41 l (finding) [place] Active Problem 04/26/2022 [facility] Group Allergies, Adverse Reactions, Alerts Allergy Allergy Status Severity Reaction(s) Onset Inactive Treating Comm ents Source Name Type Date Date Clinician Codeine Propensi Active Itching Jaz ty to 02-12 Seybold adverse 00:00: reaction 00 s Hydrocod Propensi Active Itching Kelse y one ty to 501 Seybold adverse 00:00: reaction 00 s Nsaids Propensi Active Other (See "Heart Meth ranjit (Non-David ty to Comments) 1-[address] roidal adverse 00:00: gerd Hospita Anti-Inf reaction 00 symptoms" l lammator s to y Drug) drug Nsaids Propensi Active Other Jaz ty to 4-14 Seybold adverse 00:00: reaction 00 s NSAIDs NSAIDs Active Memoria l Al NSAIDS Allergy Active Banda (NON-DAVID to [facility]rology ANTI-INF e LAMMATOR Y DRUG) Codeine All[facility] e Family History Family Member Diagnosis Comments Start Date Stop Date Source Natural father Diabetes [facility] Social History Social Habit Start Date Stop Date Quantity Comments Source History SDOH Jaz Santoroo ld Alcohol Frequency History SDOH Jaz Gonsalez ld Alcohol Std Drinks History [facility] Jaz Gonsalez ld Alcohol Binge Gender identity [facility] Sexual [facility] Alcohol intake 2023-04-02 2023-04-02 Lifetime [facility] 00:00:00 00:00:00 non-drinker Hospital (finding) History of Social 2023-04-02 2023-04-[address] function 00:00:00 00:00:00 Hospital Tobacco use and 2023-03-29 2023-03-29 Smokeless [facility] 00:00:00 00:00:00 tobacco non-user Hospital Alcohol Comment 2022-02-06 2022-02-06 rarely Jaz barajas 00:00:00 00:00:00 Education 2022-02-06 2022-02-06 12 Jaz Bae 00:00:00 00:00:00 Sex [birth year] [facility] 00:00:[facility] 00:00:00 Hospital Smoking Status Start Date Stop Date Source Social History [facility] Medications Ordered Filled Start Stop Current Ordering Indication Dosage Frequency Signature Comments Components Source Medication Medication Date Date Medication? Clinician (SIG) Name Name HYDROcodone Yes [id number] 1{tbl} Q6H Take 1-2 Methodi -acetaminop 6-[address] [facility] ([facility]) 00:00: mouth Hospi ta 5-325 mg 00 every 6 l per tablet (six) hours as needed for moderate pain (pain) .acute pain. No more than 8 tablets per day Max Daily Amount: 8 tablets sulfamethox 2022- No 1{tbl} Q.5D Take 1 M ethodi azole-trime 6-16 06-[address] oprim 00:00: 04:59 mouth 2 Hospit a (Bactrim 00 :00 (two) l DS) 800-160 times a mg per day for 3 tablet days. tamsulosin Yes 0.4 mg = 1 M emoria 0.4 mg oral 6-27 cap, PO, l capsule 17:47: Daily, # Ari n 00 30 cap, 0 Refill(s), Pharmacy: [facility], 177.8, cm, 04/10/22 11:53:00 CDT, Height, 116.023, kg, 04/10/22 11:53:00 CDT, Weight tamsulosin Yes 0.4 mg = 1 M emoria 0.4 mg oral 6-27 cap, PO, l capsule 17:47: Daily, # Ari n 00 30 cap, 0 Refill(s), Pharmacy: [facility], 177.8, cm, 04/10/22 11:53:00 CDT, Height, 116.023, kg, 04/10/22 11:53:00 CDT, Weight Cipro 500 2022-0 Yes 500 mg = 1 Me moria mg oral 6-27 tab, PO, l tablet 17:27: Q12H, X 7 Ari n 00 day, # 14 tab, 0 Refill(s), Pharmacy: [facility], 177.8, cm, 04/10/22 11:53:00 CDT, Height, 116.023, kg, 04/10/22 11:53:00 CDT, Weight Cipro 500 0 Yes 500 mg = 1 Me moria mg oral 6-27 tab, PO, l tablet 17:27: Q12H, X 7 Ari n 00 day, # 14 tab, 0 Refill(s), Pharmacy: [facility], 177.8, cm, 04/10/22 11:53:00 CDT, Height, 116.023, kg, 04/10/22 11:53:00 CDT, Weight Prilosec 0 Yes PO, Daily, Mem oria 6-27 0 l 16:57: Refill(s) Al 00 Prilosec 0 Yes PO, Daily, Mem oria 6-27 0 l 16:57: Refill(s) Al 00 gabapentin Yes 100 mg = 1 M emoria 100 mg oral 6-27 cap, 0 l capsule 16:55: Refill(s) Iman nn gabapentin 0 Yes 0 Memoria 300 mg oral 6-27 Refill(s) l capsule 16:55: Al gabapentin 0 Yes 100 mg = 1 M emoria 100 mg oral 6-27 cap, 0 l capsule 16:55: Refill(s) Iman nn gabapentin 0 Yes 0 Memoria 300 mg oral 6-27 Refill(s) l capsule 16:55: [place] 00 HYDROcodone 2021-0 Yes [id number] 1{tbl} Q.[id number] Take 1 Jaz -Acetaminop 5-10 [id number] tablet by Catalino maribel 7.5-325 00:00: 3D mouth MG oral 00 every 8 Tablet hours as needed for pain HYDROcodone 0 Yes [id number] 1{tbl} Q.77220080 Take 1 Jaz -Acetaminop 5-10 [id number] tablet by Seybold hen 7.5-325 00:00: 3D mouth MG oral 00 every 8 Tablet hours as needed for pain Pantoprazol Yes 40mg Take 40 mg Jaz e Sodium 40 4-25 by mouth Seyb old MG oral 13:27: in the Tablet 23 morning Delayed and 40 mg Response in the evening. Acetaminoph Yes Take by Jose Carlos sey en 4-25 mouth Seybold (Tylenol) 13:27: 325 MG oral 23 Capsule Pantoprazol 0 Yes 40mg Take 40 mg Jaz e Sodium 40 4-25 by mouth Seyb old MG oral 13:27: in the Tablet 23 morning Delayed and 40 mg Response in the evening. Pantoprazol Yes 40mg Take 40 mg Jaz e Sodium 40 4-25 by mouth Seyb old MG oral 13:27: in the Tablet 23 morning Delayed and 40 mg Response in the evening. Acetaminoph Yes 1{tbl} Q.25D Take 1 Jaz en-Codeine 4-25 tablet by Seyb old 300-30 MG 00:00: mouth oral Tablet 00 every 6 hours as needed for pain omeprazole Yes 40mg Q.5D 1 capsule Me thodi (PriLOSEC) 6-13 ([address] 40 MG 00:00: total) 2 Hospita capsule 00 (two) l times a day. hydrocodone hydrocodone No hydrocodon [facility] 7.5 7.5 e 7.5 Medical mg-acetamin mg-acetamin mg-acetami ophen 325 ophen 325 nophen 325 mg tablet mg tablet mg tablet TAKE 1 TAKE 1 TAKE 1 TABLET BY TABLET BY TABLET BY MOUTH EVERY MOUTH EVERY MOUTH 8 HOURS 8 HOURS EVERY 8 NEEDED FOR NEEDED FOR HOURS PAIN PAIN NEEDED FOR PAIN levofloxaci levofloxaci No levofloxac [facility] n 750 mg n 750 mg in 750 mg Me dical tablet tablet tablet metronidazo metronidazo No metronidaz [facility] le 500 mg le 500 mg ole 500 mg Medical tablet tablet tablet nystatin nystatin No nystatin Inna via 100,000 100,000 100,000 Medica l unit/gram unit/gram unit/gram topical topical topical ointment ointment ointment omeprazole omeprazole No omeprazole [facility] 40 mg 40 mg 40 mg Medical capsule,del capsule,del capsule,de ayed ayed layed release release release penicillin penicillin No penicillin [facility] V potassium V potassium V M edical 500 mg 500 mg potassium tablet TAKE tablet TAKE 500 mg 1 TABLET BY 1 TABLET BY tablet MOUTH FOUR MOUTH FOUR TAKE 1 TIMES DAILY TIMES DAILY TABLET BY MOUTH FOUR TIMES DAILY prednisone prednisone No prednisone [facility] 20 mg 20 mg 20 mg Medical tablet TAKE tablet TAKE tablet THREE (3) THREE (3) TAKE THREE TABLET(S) TABLET(S) (3) BY MOUTH BY MOUTH TABLET(S) ONCE A DAY ONCE A DAY BY MOUTH WITH FOOD. WITH FOOD. ONCE A DAY WITH FOOD. sucralfate sucralfate No sucralfate [facility] 1 gram 1 gram 1 gram Medical tablet tablet tablet tamsulosin tamsulosin No tamsulosin [facility] 0.4 mg 0.4 mg 0.4 mg Medical capsule capsule capsule tramadol tramadol No tramadol Inna via 37.5 37.5 37.5 Medical mg-acetamin mg-acetamin mg-acetami ophen 325 ophen 325 nophen 325 mg tablet mg tablet mg tablet TAKE 1 TAKE 1 TAKE 1 TABLET TABLET TABLET NEEDED FOR NEEDED FOR NEEDED FOR PAIN ORALLY PAIN ORALLY PAIN EVERY 6 EVERY 6 ORALLY HOURS 10 HOURS 10 EVERY 6 DAYS DAYS HOURS 10 DAYS omeprazole omeprazole No omeprazole Banda 40 mg 40 mg 40 mg [facility] capsule,del capsule,del capsule,de Urology ayed ayed layed release release release TAKE ONE TAKE ONE TAKE ONE (1) (1) (1) CAPSULE(S) CAPSULE(S) CAPSULE(S) BY MOUTH BY MOUTH BY MOUTH TWICE A TWICE A TWICE A DAY. DAY. DAY. tramadol 50 tramadol 50 No tramadol [facility] mg tablet mg tablet 50 mg Medi basilia TAKE 1 TAB TAKE 1 TAB tablet TWICE A DAY TWICE A DAY TAKE 1 TAB FOR PAIN FOR PAIN TWICE A DAY FOR PAIN tramadol 50 tramadol 50 No 1 Q6H tramadol Banda mg tablet mg tablet 50 mg Metr o Take 1 Take 1 tablet Urology tablet tablet Take 1 every 6 every 6 tablet hours by hours by every 6 oral route oral route hours by as needed as needed oral route for 7 days. for 7 days. as needed for 7 days. acetaminoph acetaminoph No acetaminop [facility] en 300 en 300 hen 300 Medical mg-codeine mg-codeine mg-codeine 30 mg 30 mg 30 mg tablet TAKE tablet TAKE tablet 1 TABLET BY 1 TABLET BY TAKE 1 MOUTH TWICE MOUTH TWICE TABLET BY A DAY A DAY MOUTH TWICE A DAY omeprazole omeprazole No omeprazole Banda 40 mg 40 mg 40 mg [facility] capsule,del capsule,del capsule,de Urology ayed ayed layed release release release TAKE ONE TAKE ONE TAKE ONE (1) (1) (1) CAPSULE(S) CAPSULE(S) CAPSULE(S) BY MOUTH BY MOUTH BY MOUTH TWICE A TWICE A TWICE A DAY. DAY. DAY. amoxicillin amoxicillin No amoxicilli [facility] 500 500 n 500 Medical mg-potassiu mg-potassiu mg-potassi m m um clavulanate clavulanate clavulanat 125 mg 125 mg e 125 mg tablet tablet tablet sulfamethox sulfamethox No sulfametho Banda azole 800 azole 800 xazole 800 [facility] mg-trimetho mg-trimetho mg-trimeth Urology prim 160 mg prim 160 mg oprim 160 tablet tablet mg tablet amoxicillin amoxicillin No amoxicilli [facility] 875 mg 875 mg n 875 mg Medical tablet tablet tablet amoxicillin amoxicillin No amoxicilli [facility] 875 875 n 875 Medical mg-potassiu mg-potassiu mg-potassi m m um clavulanate clavulanate clavulanat 125 mg 125 mg e 125 mg tablet tablet tablet tramadol tramadol No 1 Q8H tramadol Dwain ston 100 mg 100 mg 100 mg [facility] tablet Take tablet Take tablet Urology 1 tablet 1 tablet Take 1 every 8 every 8 tablet hours by hours by every 8 oral route oral route hours by for 7 days. for 7 days. oral route for 7 days. tramadol 50 tramadol 50 No tramadol Banda mg tablet mg tablet 50 mg Metr o TAKE 2 TAKE 2 tablet Urology TABLETS BY TABLETS BY TAKE 2 MOUTH EVERY MOUTH EVERY TABLETS BY 8 HOURS 8 HOURS MOUTH NEEDED NEEDED EVERY 8 HOURS NEEDED amitriptyli amitriptyli No 1 Q1D amitriptyl Banda ne 10 mg ne 10 mg ine 10 mg Me tro tablet Take tablet Take tablet Urology 1 tablet 1 tablet Take 1 every day every day tablet by oral by oral every day route for route for by oral 30 days. 30 days. route for 30 days. cephalexin cephalexin No cephalexin [facility] 500 mg 500 mg 500 mg Medical capsule capsule capsule TAKE 1 TAKE 1 TAKE 1 CAPSULE, CAPSULE, CAPSULE, FOR POSTOP FOR POSTOP FOR POSTOP ANTIBIOTIC ANTIBIOTIC ANTIBIOTIC PROPHYLACTI PROPHYLACTI PROPHYLACT C THERAPY C THERAPY IC THERAPY ORALLY ORALLY ORALLY EVERY 12 EVERY 12 EVERY 12 HRS 14 DAYS HRS 14 DAYS HRS 14 DAYS omeprazole omeprazole No omeprazole Banda 40 mg 40 mg 40 mg [facility] capsule,del capsule,del capsule,de Urology ayed ayed layed release release release TAKE ONE TAKE ONE TAKE ONE (1) (1) (1) CAPSULE(S) CAPSULE(S) CAPSULE(S) BY MOUTH BY MOUTH BY MOUTH TWICE A TWICE A TWICE A DAY. DAY. DAY. tramadol tramadol No tramadol Dwain ston 100 mg 100 mg 100 mg [facility] tablet TAKE tablet TAKE tablet Urology 1 TABLET BY 1 TABLET BY TAKE 1 MOUTH EVERY MOUTH EVERY TABLET BY 8 HOURS FOR 8 HOURS FOR MOUTH 7 DAYS 7 DAYS EVERY 8 HOURS FOR 7 DAYS tramadol 50 tramadol 50 No 1 Q6H tramadol Banda mg tablet mg tablet 50 mg Metr o Take 1 Take 1 tablet Urology tablet tablet Take 1 every 6 every 6 tablet hours by hours by every 6 oral route oral route hours by as needed as needed oral route for 7 days. for 7 days. as needed for 7 days. Tylenol Tylenol No 2 Q6H Tylenol [place] Extra Extra Extra [facility] Strength Strength Strength Uro logy 500 mg 500 mg 500 mg tablet Take tablet Take tablet 2 tablets 2 tablets Take 2 every 6 every 6 tablets hours by hours by every 6 oral route. oral route. hours by oral route. doxycycline doxycycline No 1capsul BID doxycyclin [place] monohydrate monohydrate e(s) e M etro 100 mg 100 mg monohydrat Urolo gy capsule capsule e 100 mg Take 1 Take 1 capsule capsule capsule Take 1 twice a day twice a day capsule by oral by oral twice a route for 7 route for 7 day by days. days. oral route for 7 days. gabapentin gabapentin No gabapentin Banda 600 mg 600 mg 600 mg [facility] tablet TAKE tablet TAKE tablet Urology ONE (1) ONE (1) TAKE ONE TABLET(S) TABLET(S) (1) BY MOUTH BY MOUTH TABLET(S) THREE TIMES THREE TIMES BY MOUTH A DAY. A DAY. THREE TIMES A DAY. ciprofloxac ciprofloxac No ciprofloxa [facility] in 500 mg in 500 mg meliton 500 mg Medical tablet tablet tablet clindamycin clindamycin No clindamyci [facility] HCl 150 mg HCl 150 mg n HCl 150 Medical capsule capsule mg capsule diazepam 5 diazepam 5 No diazepam 5 [facility] mg tablet mg tablet mg tablet Medical TAKE 1 TAKE 1 TAKE 1 TABLET BY TABLET BY TABLET BY MOUTH MOUTH MOUTH NEEDED FOR NEEDED FOR NEEDED FOR ANXIETY ANXIETY ANXIETY gabapentin gabapentin No gabapentin [facility] 100 mg 100 mg 100 mg Medical capsule capsule capsule TAKE ONE TAKE ONE TAKE ONE (1) (1) (1) CAPSULE(S) CAPSULE(S) CAPSULE(S) BY MOUTH BY MOUTH BY MOUTH THREE TIMES THREE TIMES THREE A DAY. A DAY. TIMES A DAY. gabapentin gabapentin No gabapentin [facility] 300 mg 300 mg 300 mg Medical capsule capsule capsule TAKE ONE TAKE ONE TAKE ONE (1) (1) (1) CAPSULE(S) CAPSULE(S) CAPSULE(S) BY MOUTH BY MOUTH BY MOUTH THREE TIMES THREE TIMES THREE A DAY. A DAY. TIMES A DAY. gabapentin gabapentin No gabapentin [facility] 400 mg 400 mg 400 mg Medical capsule capsule capsule TAKE 1 TAKE 1 TAKE 1 CAPSULE BY CAPSULE BY CAPSULE BY MOUTH THREE MOUTH THREE MOUTH TIMES DAILY TIMES DAILY THREE TIMES DAILY hydrocodone hydrocodone No hydrocodon [facility] 10 10 e 10 Medical mg-acetamin mg-acetamin mg-acetami ophen 325 ophen 325 nophen 325 mg tablet mg tablet mg tablet TAKE 1 TAKE 1 TAKE 1 TABLET TABLET TABLET NEEDED FOR NEEDED FOR NEEDED FOR POSTOP PAIN POSTOP PAIN POSTOP ORALLY ORALLY PAIN EVERY 6 EVERY 6 ORALLY HOURS FOR HOURS FOR EVERY 6 10 DAYS 10 DAYS HOURS FOR 10 DAYS Vital Signs Vital Name Observation Time Observation Value Comments Source Height 2023-04-18 00:00:00 70 [in_i] [facility] BMI (Body Mass 2023-04-18 00:00:00 31.1 kg/m2 [facility] Index) Urology Body Weight 2023-04-18 00:00:00 217 [lb_av] [facility] Systolic blood 2022-02-06 18:41:00 132 mm[Hg] Jaz Santoroold pressure Diastolic blood 2022-02-06 18:41:00 92 mm[Hg] Kel y Seybold pressure Heart rate 2022-02-06 18:23:00 104 /min Jaz morales Body temperature 2022-02-06 18:23:00 37.11 Sonja Palak ey Seybold Respiratory rate 2022-02-06 18:23:00 14 /min Palak ey Seybold Body height 2022-02-06 18:23:00 177.8 cm Jaz Preston eybothelma Body weight 2022-02-06 18:23:00 107.049 kg Jaz Preston bo BMI 2022-02-06 18:23:00 33.86 kg/m2 Jaz Preston bo Oxygen saturation in 2022-02-06 18:23:00 99 /min [facility] Arterial blood by Pulse oximetry Systolic blood 2023-03-30 16:09:00 122 mm[Hg] [facility] pressure Diastolic blood 2023-03-30 16:09:00 70 mm[Hg] [facility] pressure Heart rate 2023-03-30 16:09:00 66 /min [facility] Body temperature 2023-03-30 16:09:00 36.78 Sonja [facility] Respiratory rate 2023-03-30 16:09:00 18 /min [facility] Oxygen saturation in 2023-03-30 16:09:00 100 /min [facility] Arterial blood by Pulse oximetry Body height 2023-03-30 10:24:00 177.8 cm [facility] Body weight 2023-03-30 10:24:00 124.013 kg [facility] BMI 2023-03-30 10:24:00 39.23 kg/m2 [facility] Height 2022-04-10 16:53:00 177.8 cm [facility] Weight 2022-04-10 16:53:00 [facility] BMI Calculated 2022-04-10 16:53:00 [facility] Procedures Procedure Date / Time Performing Clinician Source Performed SURGICAL PATHOLOGY 2023-03-30 16:26[facility]00 [facility]IVE 2023-03-30 12:33:00 Adriana Mukherjee Ho spital ENDOTRACHEAL AIRWAY EXCISION, SPERMATOCELE 2023-03-30 12:19:00 Miguel Govea [facility] CBC WITH PLATELET AND 2023-03-29 14:17[facility] Bjorn BASIC METABOLIC PANEL 2023-03-29 14:17:00 [facility] Bjorn TYPE AND SCREEN 2023-03-29 14:17:00 [facility] PROTHROMBIN TIME WITH INR 2023-03-29 14:17:00 [facility] PARTIAL THROMBOPLASTIN 2023-03-29 14:17:00 [facility] TIME (PTT) Bjorn ESTIMATED GFR 2023-03-29 14:17:00 [facility] URINE CULTURE 2023-03-29 14:05:00 [facility] URINALYSIS SCREEN AND 2023-03-29 14:05:00 [facility] MICROSCOPY, WITH REFLEX Bjorn TO CULTURE Repair of rotator cuff of 2017-05-15 05:00:00 Fl ashley Hayesann shoulder Hiatus hernia repair 2000-02-13 05:00:00 Frank Melendez Plan of Care Planned Activity Planned Date Details Comments Source Future Scheduled Test 2023-04-24 COVID-19 VACCINE [facility] 20:53:03 (#1) [code = COVID-19 VACCINE (#1)] Future Scheduled Test 2023-04-24 Hepatitis C [facility] 20:53:03 screening (procedure) [code = 525732769] Future Scheduled Test 2023-04-24 INFLUENZA VACCINE [facility] 20:53:03 [code = INFLUENZA VACCINE] Diagnostic Test 2023-04-18 urinalysis, Solo burns Pending 00:00:00 dipstick [code = Urology urinalysis, dipstick] Encounters Start End Encounter Admission Attending Care Care Encounter Source Date/Time Date/Time Type Type Clinicians Facility Department ID 2022-04-14 Outpatient KIRAN MOREIRA PEDRITO [id number] 15:43[facility] [facility] [id number] 08:47:01 [facility] [id number] [facility] 2023-04-20 2023-04-20 Outpatient GC_CPC_Mald PRIV PRIV [id number] [facility] 00:00:00 00:00:00 onado_E [id number] Medica l 2023-04-18 2023-04-18 Miguel [facility] [place] [place] - [id number] [facility] 00:00:00 00:00:00 Solo Govea MD: [id number] ro Urology [facility] BENJI [facility] - [address], [place] [address] , Ph. 2023-04-10 2023-04-10 Outpatient Lizarraga_V [facility]U [id number] [place] 00:00:00 00:00:00 [id number] [facility] 2023-04-10 2023-04-10 Outpatient Lizarraga_V [facility]U [facility]U [id number] [place] 00:00:00 00:00:00 [id number] [facility] 2023-04-05 2023-04-05 Outpatient Lizarraga_V [facility]U [facility]U [id number] [place] 00:00:00 00:00:00 [id number] [facility] 2023-04-05 2023-04-05 Miguel [facility] [place] - [id number] [facility] 00:00:00 00:00:00 Solo Govea MD: [id number] [facility] [address] [place] [address] , Ph. 2023-04-02 2023-04-02 Outpatient Lizarraga_V [facility]U [id number] [place] 00:00:00 00:00:00 [id number] [facility] 2023-03-30 2023[facility] 1.2.840.1 [id number] [facility] 05:13:00 13:11:00 Encounter Miguel [id number] [facility] 3.430.2.7 Hospit a .3.556258 l .8 2023-03-30 2023-03-30 Anesthesia Juan Manuel Mittal 1.2.840.1 1 [id number] [facility] 07:13:00 09:02:00 Event Adriana Mukherjee [id number] 3.430.2.7 Hospit a .3.590086 l .8 2023-03-30 2023-03-30 Surgery Jeferson, 1.2.840.1 [id number] [id number] [facility] 07:15:00 08:25:[id number] Bjorn 3.430.2.7 Hospit a .3.336295 l .8 2023-03-30 2023-03-30 [id number] [place] 00:00:00 00:00:00 MIGUEL [address] 2023-03-29 2023-03-29 Pre-Admiss Jeferson, 1.2.840.1 [id number] [facility] 09:10:00 10:10:00 ion Miguel [id number] Testing Bjorn 3.430.2.7 Hospit a .3.573972 l .8 2023-03-29 2023-03-29 Outpatient JEFERSON, [facility] [id number] [place] 00:00:00 00:00:00 MIGUEL [address] 2023-03-26 2023-03-26 Outpatient Lizarraga_V [facility] [id number] [place] 00:00:00 00:00:00 [id number] [facility] 2023-03-26 2023-03-26 Outpatient Lizarraga_V [facility] [id number] [place] 00:00:00 00:00:00 [id number] [facility] 2023-03-26 2023-03-26 Outpatient Lizarraga_V [facility] [id number] [place] 00:00:00 00:00:00 [id number] [facility] 2023-03-20 2023-03-20 Outpatient Lizarraga_V [facility] [id number] [place] 00:00:00 00:00:00 [id number] [facility] 2023-03-20 2023-03-20 Miguel [facility] [place] - [id number] Mo bal 00:00:00 00:00:00 Solo Govea MD: [id number] [facility], [address] [place] [address] , Ph. 2023-01-03 2023-01-03 Outpatient Noemy CHOW, [facility] TRAVISAMA [id number] [facility] 13:00:00 13:00:00 CHARLETTE(ANGELA) [facility] 2022-07-10 2022-07-10 Outpatient GC_CPC_Nurs PRIV PRIV [id number] [facility] 00:00:00 00:00:00 e [id number] Medica l 2022-07-10 2022-07-10 William [facility] [id number] [facility] 00:00:00 00:00:00 r Health - Medic al Wood, GC_CPC_Suga DO: [facility] [address], [place], [place] [id number] , Ph. 2022-04-24 2022-04-24 Ambulatory nullFlavo [facility] 55 [id number] Memoria 13:45:00 13:45:00 Pre-Reg r Specialty 03 l Clinic [facility] 2022-04-24 2022-04-24 Ambulatory nullFlavo [facility] 55 [id number] Memoria 13:45:00 13:45:00 Pre-Reg r Specialty 03 l [facility] 2022-04-24 2022-04-24 Outpatient MHIE MHIE [id number] Memoria 08:45:00 08:45:00 03 [facility] 2022-04-24 2022-04-24 Outpatient Staller, MHMG [facility] [id number] 08:45:00 08:45:00 Markus L 2022-04-10 2022-04-11 Outpatient nullFlavo [facility] 55 [id number] Memoria 20:00:00 04:59:59 r Specialty 00 l [facility] 2022-04-10 2022-04-11 Outpatient nullFlavo [facility] 55 [id number] Memoria 20:00:00 04:59:59 r Specialty 00 l [facility] 2022-04-10 2022-04-10 Outpatient Staller, MHMG [facility] [id number] 15:00:00 23:59:59 Markus L 2022-04-10 2022-04-10 Outpatient MHIE MHIE [id number] Memoria 15:00:00 15:00:00 00 l Al 2022-04-10 2022-04-10 Outpatient MHIE MHIE [id number] Memoria 12:36:00 12:36:00 02 l Al 2022-04-10 2022-04-10 Outpatient MHIE MHIE [id number] Memoria 12:36:00 12:36:00 01 l [place] 2022-04-10 2022-04-10 Outpatient MHIE MHIE [id number] Memoria 12:36:00 12:36:00 02 l [place] 2022-04-10 2022-04-10 Outpatient MHIE MHIE [id number] Memoria 12:36:00 12:36:00 01 sonal Al 2022-03-06 2022-03-06 Outpatient JAZ LOPEZ [id number] Jaz 00:00:00 00:00:00 TYRON Seybol d 2022-03-06 2022-03-06 Outpatient JAZ LOPEZ [id number] Jaz 00:00:00 00:00:00 TYRON Seybol d 2022-03-05 2022-03-05 Telemedici More, CLEAR [id number] Jaz 11:45:00 11:45:00 ne Sary ESTRADA 350.1.13.13 Se ybold 1.2.7.2.686 [id number] 2022-03-05 2022-03-05 Telemedici Hernandez, Siena CLEAR [id number] Jaz 10:45:00 10:57:37 ne S ESTRADA 350.1.13.13 Se ybold 1.2.7.2.686 [id number] 2022-02-16 2022-02-16 Outpatient JAZ LOPEZ [id number] Jaz 00:00:00 00:00:00 TYRON Seybol d 2022-02-09 2022-02-09 Outpatient JAZ LOPEZ [id number] Jaz 00:00:00 00:00:00 TYRON Seybol d 2022-02-09 2022-02-09 Outpatient JAZ LOPEZ [id number] Jaz 00:00:00 00:00:00 TYRON Seybol d 2022-02-08 2022-02-08 Outpatient JAZ LOPEZ JAZ [id number] Jaz 00:00:00 00:00:00 TYRON Seybol d 2022-02-08 2022-02-08 Outpatient JAZ LOPEZ JAZ [id number] Jaz 00:00:00 00:00:00 TYRON Seybol d 2022-02-06 2022-02-06 Office Davis Lopez [id number] Jaz 13:30:00 13:45:00 Visit Tyron Holcomb 350.1.13.13 Se barajas [id number] 2020-10-27 2020-10-27 Outpatient SHRAVAN LONDONO [facility] [id number] [place] 00:00:00 00:00:[address] 2020-10-27 2020-10-27 Outpatient SHRAVAN LONDONO [facility] [id number] [place] 00:00:00 00:00:[address] Results Test Description Test Time Test Comments Results Result Comments Source Surgical pathology request 2023-04-03 16:21:50 Test Item Value Reference Range Interpretation Comme nts Case number (test code = 2032711) [id number] Surgical pathology report (test code = See link below for PDF Lab R eport 9708) Result status (test code = 0247288) This is Final Report for [id number] [facility] [id number] 14:40:00 Test Item Value Reference Range Interpretation Comments Urine culture (test SEE COMMENT Bacteriu pratik screen code = 6273275) negative. [facility]achomat[facility]+Neisseria gonorrhoeae rRNA [Presence] in Urine by [id number] 00:00:00 Test Item Value Reference Range Interpretation Comments Chlamydia trachomatis rRNA not detected not detected [Presence] in Urine by ANDREI with probe detection (test code = 89962-1) Neisseria gonorrhoeae rRNA not detected not detected [Presence] in Urine by ANDREI with probe detection (test code = 86379-5) [facility]Neisseria gonorrhoeae rRNA [Presence] in Urine by [id number] 00:00:00 Test Item Value Reference Range Interpretation Comments Chlamydia trachomatis rRNA not detected not detected [Presence] in Urine by ANDREI with probe detection (test code = 44569-2) Neisseria gonorrhoeae rRNA not detected not detected [Presence] in Urine by ANDREI with probe detection (test code = 82188-8) [facility] by [id number] 00:00:00 [facility] by Culture 2023-03-20 00:00:00[facility] 2022-04-11 21:53:00 Test Item Value Reference Range Interpretation Comments C trachomatis by ANDREI (test code NOT DETECTED = C trachomatis by ANDREI) [facility] [id number] 21:53:00 Test Item Value Reference Range Interpretation Comments N gonorrhea by ANDREI (test code = NOT DETECTED N gonorrhea by ANDREI) [facility] [id number] 21:53:00 Test Item Value Reference Range Interpretation Comments C trachomatis by ANDREI (test code NOT DETECTED = C trachomatis by ANDREI) [facility] [id number] 21:53:00 Test Item Value Reference Range Interpretation Comments N gonorrhea by ANDREI (test code = NOT DETECTED N gonorrhea by ANDREI) [facility] AND [id number] 21:50:00 Test Item Value Reference Range Interpretation Comments UA Color (test code = UA Color) YELLOW [facility] AND [id number] 21:50:00 Test Item Value Reference Range Interpretation Comments UA Turbidity (test code = UA Turbidity) CLEAR [facility] AND [id number] 21:50:00 Test Item Value Reference Range Interpretation Comments UA Spec Grav (test code = UA Spec 1.022 1 1.001-1.035 Grav) [facility] AND [id number] 21:50:00 Test Item Value Reference Range Interpretation Comments UA pH (test code = UA pH) 5.5 1 5.0-8.0 [facility] AND [id number] 21:50:00 Test Item Value Reference Range Interpretation Comments UA Glucose (test code = UA Glucose) NEGATIVE [facility] AND [id number] 21:50:00 Test Item Value Reference Range Interpretation Comments UA Color (test code = UA Color) YELLOW [facility] AND [id number] 21:50:00 Test Item Value Reference Range Interpretation Comments UA Turbidity (test code = UA Turbidity) CLEAR [facility] AND [id number] 21:50:00 Test Item Value Reference Range Interpretation Comments UA Spec Grav (test code = UA Spec 1.022 1 1.001-1.035 Grav) [facility] AND [id number] 21:50:00 Test Item Value Reference Range Interpretation Comments UA pH (test code = UA pH) 5.5 1 5.0-8.0 [facility] AND [id number] 21:50:00 Test Item Value Reference Range Interpretation Comments UA Glucose (test code = UA Glucose) NEGATIVE [facility] AND [id number] 21:50:00 Test Item Value Reference Range Interpretation Comments UA Bili (test code = UA Bili) NEGATIVE [facility] AND [id number] 21:50:00 Test Item Value Reference Range Interpretation Comments UA Ketones (test code = UA Ketones) NEGATIVE [facility] AND [id number] 21:50:00 Test Item Value Reference Range Interpretation Comments UA Blood (test code = UA Blood) NEGATIVE [facility] AND [id number] 21:50:00 Test Item Value Reference Range Interpretation Comments UA Protein (test code = UA Protein) NEGATIVE [facility] AND [id number] 21:50:00 Test Item Value Reference Range Interpretation Comments UA Nitrite (test code = UA Nitrite) NEGATIVE [facility] AND [id number] 21:50:00 Test Item Value Reference Range Interpretation Comments UA Leuk Est (test code = UA Leuk NEGATIVE Est) [facility] AND [id number] 21:50:00 Test Item Value Reference Range Interpretation Comments UA WBC (test code = UA WBC) 0-5 [facility] AND [id number] 21:50:00 Test Item Value Reference Range Interpretation Comments UA RBC (test code = UA RBC) NONE SEEN [facility] AND [id number] 21:50:00 Test Item Value Reference Range Interpretation Comments UA Sq Epi (test code = UA Sq Epi) [facility] [id number] 21:50:00 Test Item Value Reference Range Interpretation Comments UA Bacteria (test code = UA NONE SEEN Bacteria) [facility] [id number] 21:50:00 Test Item Value Reference Range Interpretation Comments UA CaOx Libra (test code = UA CaOx MODERATE Libra) [facility] [id number] 21:50:00 Test Item Value Reference Range Interpretation Comments UA Hyal Cast (test code = UA Hyal NONE SEEN Cast) [facility] [id number] 21:50:00 Test Item Value Reference Range Interpretation Comments UA Comment 2 (test code = UA SEE COMMENT Comment 2) [facility] [id number] 21:50:00 Test Item Value Reference Range Interpretation Comments UA Bili (test code = UA Bili) NEGATIVE [facility] [id number] 21:50:00 Test Item Value Reference Range Interpretation Comments UA Ketones (test code = UA Ketones) NEGATIVE [facility] [id number] 21:50:00 Test Item Value Reference Range Interpretation Comments UA Blood (test code = UA Blood) NEGATIVE [facility] [id number] 21:50:00 Test Item Value Reference Range Interpretation Comments UA Protein (test code = UA Protein) NEGATIVE [facility] [id number] 21:50:00 Test Item Value Reference Range Interpretation Comments UA Nitrite (test code = UA Nitrite) NEGATIVE [facility] [id number] 21:50:00 Test Item Value Reference Range Interpretation Comments UA Leuk Est (test code = UA Leuk NEGATIVE Est) [facility] [id number] 21:50:00 Test Item Value Reference Range Interpretation Comments UA WBC (test code = UA WBC) 0-5 [facility] [id number] 21:50:00 Test Item Value Reference Range Interpretation Comments UA RBC (test code = UA RBC) NONE SEEN [facility] [id number] 21:50:00 Test Item Value Reference Range Interpretation Comments UA Sq Epi (test code = UA Sq Epi) NONE [facility]EN [facility] [id number] 21:50:00 Test Item Value Reference Range Interpretation Comments UA Bacteria (test code = UA NONE SEEN Bacteria) [facility] AND [id number] 21:50:00 Test Item Value Reference Range Interpretation Comments UA CaOx Libra (test code = UA CaOx MODERATE Libra) [facility] AND [id number] 21:50:00 Test Item Value Reference Range Interpretation Comments UA Hyal Cast (test code = UA Hyal NONE SEEN Cast) [facility] AND [id number] 21:50:00 Test Item Value Reference Range Interpretation Comments UA Comment 2 (test code = UA SEE COMMENT Comment 2) [facility]
--- NOTE | 2023-04-25 13:49 | RAD REPORT ---
EXAM DESCRIPTION: CTAbdomen Pelvis W Contrast - 04/25/2023 1:38 pm CLINICAL HISTORY: RUQ PAIN COMPARISON: Abdomen Pelvis W Contrast dated 02/20/2021; Abdomen Pelvis W Contrast dated 09/06/2020 ; Abdomen Pelvis W Contrast dated 10/12/2019; Abdomen Pelvis W Contrast dated 06/29/2018 TECHNIQUE: CT of the abdomen and pelvis was performed. All CT scans are performed using dose optimization technique as appropriate and may include automated exposure control or mA/KV adjustment according to patient size. FINDINGS: Lower chest: Moderately thickened distal esophagus. Enlarged lower paraesophageal lymph no de . Liver: No acute abnormality or suspicious lesions. Biliary: No biliary ductal dilatation. Stomach: No significant focal abnormality. Duodenum: No significant focal abnormality. Pancreas: No significant abnormality. Spleen: No significant abnormality. Adrenal: No suspicious lesions. Kidney/ureter: No hydronephrosis. Punctate stones present in the kidneys bilaterally. No ureteral basilia culi. Retroperitoneum: No retroperitoneal adenopathy. Vascular: No aneurysm. Bowel: No significant focal abnormality. Normal appendix . Peritoneum: No ascites or free air. Bladder: Grossly unremarkable. Reproductive: No adnexal masses. Bones: No acute fracture. Other: n/a IMPRESSION: No acute intra-abdominal or pelvic finding. Suspect esophagitis of the distal esophagus. Consider endoscopy for further evaluation . .
[2023-04-25] MEDS ORDERED: ONDANSETRON 4 MG/2 ML VIAL ONE (14:05)
[2023-04-25] MEDS ORDERED: HYDROMORPHONE HCL 1 MG/ML INJ ONE ×2 (14:05→15:00)
[2023-04-25] MEDS ORDERED: NA CHLORIDE 0.9% 1,000 ML ONE (14:05)
[2023-04-25 14:20] LABS: Absolute Lymphocytes (CBC) 1.3 K/uL (0.7-4.9); Hematocrit 42.3 % (39.6-49.0); Lymphocytes % 16.6 % (15.3-44.8); MCV 93.3 fL (80-100); MPV 8.3 fL (7.6-11.3); RBC Red Blood Cell Count 4.54 M/uL (4.33-5.43)
[2023-04-25 14:35] LABS: Albumin 3.5 g/dL (3.4-5.0); Bilirubin Total 0.5 mg/dL (0.2-1.0); Potassium 3.5 mEq/L (3.5-5.1); Protein, Total 7.4 g/dL (6.4-8.2)
--- NOTE | 2023-04-25 14:41 | EDPHYS ---
Physician Documentation [facility] Name: Slava Biswas Age: 37 yrs Sex: Male : 1985 Arrival Date: 04/25/2023 Time: 12:46 Bed 7 Private MD: Cecilio Merida ED Physician Denise Parra HPI: 04/25 13:06 This 37 yrs old Male presents to ER via Ambulatory with complaints of Abdominal Pain - sp3 RUQ. 13:06 37-year-old male with history of ulcerative colitis longstanding who over the last sp3 couple of years has had improvement in symptoms and fewer ER visits now presents to the ED again for right upper quadrant abdominal pain subjective fever since yesterday. He denies any nausea, vomiting, lower abdominal pain but does endorse diarrhea nonbloody nonmucous. On review of systems, there is no headache, neck pain, shortness of breath, chest pain, back pain, rash, neurological symptoms, known sick contacts, travel history, potentially bad food or undercooked food or any other signs or symptoms at this time.. Historical: - Allergies: 12:50 Codeine; ll1 - PMHx: 12:50 Colitis; GERD; ulcertive colitis; ll1 - PSHx: 12:50 hernia repair; Tonsillectomy; ll1 - Immunization history:: Adult Immunizations up to date. - Social history:: Smoking status: Patient reports the use of cigarette tobacco products, denies chronic smoking, but will smoke occasionally. ROS: 13:07 Constitutional: Negative for fever, chills, and weight loss, Eyes: Negative for injury, sp3 pain, redness, and discharge, ENT: Negative for injury, pain, and discharge, Neck: Negative for injury, pain, and swelling, Cardiovascular: Negative for chest pain, palpitations, and edema, Respiratory: Negative for shortness of breath, cough, wheezing, and pleuritic chest pain, Back: Negative for injury and pain, MS/Extremity: Negative for injury and deformity, Skin: Negative for injury, rash, and discoloration, Neuro: Negative for headache, weakness, numbness, tingling, and seizure, Psych: Negative for depression, anxiety, suicide ideation, homicidal ideation, and hallucinations, Allergy/Immunology: Negative for hives, rash, and allergies, Endocrine: Negative for neck swelling, polydipsia, polyuria, polyphagia, and marked weight changes. 13:07 All other systems are negative. Exam: 13:07 Constitutional: This is a well developed, well nourished patient who is awake, alert, sp3 and in no acute distress. Head/Face: Normocephalic, atraumatic. Eyes: Pupils equal round and reactive to light, extra-ocular motions intact. Lids and lashes normal. Conjunctiva and sclera are non-icteric and not injected. Cornea within normal limits. Periorbital areas with no swelling, redness, or edema. Neck: Trachea midline, no thyromegaly or masses palpated, and no cervical lymphadenopathy. Supple, full range of motion without nuchal rigidity, or vertebral point tenderness. No Meningismus. Chest/axilla: Normal chest wall appearance and motion. Nontender with no deformity. No lesions are appreciated. Cardiovascular: Regular rate and rhythm with a normal S1 and S2. No gallops, murmurs, or rubs. Normal PMI, no JVD. No pulse deficits. Respiratory: Lungs have equal breath sounds bilaterally, clear to auscultation and percussion. No rales, rhonchi or wheezes noted. No increased work of breathing, no retractions or nasal flaring. Back: No spinal tenderness. No costovertebral tenderness. Full range of motion. Skin: Warm, dry with normal turgor. Normal color with no rashes, no lesions, and no evidence of cellulitis. MS/ Extremity: Pulses equal, no cyanosis. Neurovascular intact. Full, normal range of motion. Neuro: Awake and alert, GCS 15, oriented to person, place, time, and situation. Cranial nerves II-XII grossly intact. Motor strength 5/5 in all extremities. Sensory grossly intact. Cerebellar exam normal. Normal gait. Psych: Awake, alert, with orientation to person, place and time. Behavior, mood, and affect are within normal limits. 13:07 Abdomen/GI: Right upper quadrant abdominal pain noted without peritoneal signs, rebound sp3 or guarding.. Vital Signs: 13:01 BP 151 / 96; Pulse 95; Resp 18; Temp 99.4; Pulse Ox 100% on R/A; Weight 115.67 kg; hb Height 5 ft. 10 in. ; Pain 8/10; 14:28 BP 118 / 87; Pulse 88; Pulse Ox 100% on R/A; mb9 15:15 BP 124 / 81; Pulse 81; Resp 16; Pulse Ox 100% on R/A; me1 13:01 Body Mass Index 36.59 (115.67 kg, 177.8 cm) hb 13:01 Pain Scale: Adult hb MDM: 13:01 Patient medically screened. sp3 13:07 Data reviewed: vital signs, nurses notes, old medical records, lab test result(s), sp3 radiologic studies. ED course: 37-year-old male with history of ulcer colitis now with fever low-grade and right upper quad abdominal pain. Differential diagnosis is broad and includes ulcerative colitis flare, cholecystitis and/or biliary pathology, pancreatitis, functional abdominal pain, obstruction, sepsis, among others. Not highly suspicious for pathology, vascular pathology, cardiac pathology or any other critical concerning processes. Will obtain CT scan of the abdomen pelvis, urinalysis, laboratory values and administer antibiotics and IV fluids as indicated. Disposition pending patient work-up and patient course.. 14:39 ED course: CT scan demonstrates no significant abnormality regarding his ulcerative sp3 colitis however does have mild esophagitis. Clinically patient is improved and vital signs are normal. UA still pending however not clinically high suspicion for pathology. We will discharge patient home on Cipro and Flagyl and follow-up with his primary physician.. 04/25 13:02 Order name: CBC with Diff; Complete Time: 14:37 sp3 04/25 13:02 Order name: CMP; Complete Time: 14:37 sp3 04/25 13:02 Order name: Lipase; Complete Time: 14:37 sp3 04/25 13:09 Order name: Blood Culture Adult (2) sp3 04/25 14:04 Order name: Influenza Screen (A ; Complete Time: 14:37 EDMS 04/25 13:20 Order name: CT Abd/Pelvis - IV Contrast Only ds4 04/25 13:38 Order name: Abdomen ; Complete Time: 14:37 EDMS 04/25 13:02 Order name: IV Saline Lock; Complete Time: 13:10 sp3 04/25 13:02 Order name: Labs collected and sent; Complete Time: 14:08 sp3 Administered Medications: 14:07 Drug: Ondansetron IVP 4 mg Route: IVP; Site: right antecubital; me1 15:00 Follow up: Response: No adverse reaction; Nausea is decreased me1 14:07 Drug: HYDROmorphone IVP 1 mg Route: IVP; Site: right antecubital; me1 14:50 Follow up: Response: No adverse reaction; Pain is unchanged, physician notified me1 14:07 Drug: NS 0.9% IV 1000 ml Route: IV; Rate: 1 bolus; Site: right antecubital; me1 15:20 Follow up: IV Status: Order to discontinue infusion me1 14:52 Drug: HYDROmorphone IVP 1 mg Route: IVP; Site: right antecubital; iw 15:20 Follow up: Response: No adverse reaction; Pain is decreased me1 Disposition Summary: 04/25/23 14:40 Discharge Ordered Location: Home sp3 Condition: Stable sp3 Diagnosis - Clinical colitis, distal esophagitis, abdominal pain sp3 Followup: sp3 - With: Private Physician - When: Upon discharge from the Emergency Department - Reason: Continuance of care Discharge Instructions: - Discharge Summary Sheet sp3 - Ulcerative Colitis, Adult sp3 Forms: - Medication Reconciliation Form sp3 - Thank You Letter sp3 - Antibiotic Education sp3 - Prescription Opioid Use sp3 - Patient Portal Instructions.htm sp3 Prescriptions: - Cipro 500 mg Oral Tablet - take 1 tablet by ORAL route every 12 hours for 10 days; 14 tablet; Refills: 0, sp3 Product Selection Permitted - Flagyl 500 mg Oral Tablet - take 1 tablet by ORAL route every 6 hours for 10 days; 21 tablet; Refills: 0, sp3 Product Selection Permitted Signatures: Dispatcher [employer] Jolene Johnson RN RN iw Soraya Tellez RN RN 1 Denise Parra MD MD sp3 Breanna March RN RN me1 Corrections: (The following items were deleted from the chart) 13:59 13:58 Abdomen Pelvis W Con+CT.RAD.BRZ ordered. EVE PRADO
--- NOTE | 2023-04-25 14:41 | ER ---
Nurse's Notes [facility] Name: Slava Biswas Age: 37 yrs Sex: Male : 1985 Arrival Date: 04/25/2023 Time: 12:46 Bed 7 Private MD: Cecilio Merida Diagnosis: Clinical colitis, distal esophagitis, abdominal pain Presentation: 04/25 12:50 Chief complaint: Patient states: RUQ abdominal pain since last night. Some nausea and ll1 diarrhea. Coronavirus screen: Client denies travel out of the [place] in the last 14 days. At this time, the client does not indicate any symptoms associated with coronavirus-19. Ebola Screen: Patient denies travel to an Ebola-affected area in the 21 days before illness onset. Initial Sepsis Screen: Does the patient meet any 2 criteria? No. Patient's initial sepsis screen is negative. Does the patient have a suspected source of infection? Yes: Acute abdominal pain. Risk Assessment: Do you want to hurt yourself or someone else? Patient reports no desire to harm self or others. 12:50 Method Of Arrival: Ambulatory [facility] 12:50 Acuity: TRACEE 3 ll1 13:01 Onset of symptoms was April 24, 2023. Triage Assessment: 12:51 General: Appears uncomfortable, ill, Behavior is calm, cooperative, appropriate for ll1 age. Pain: Complains of pain in right upper quadrant Quality of pain is described as aching. GI: Reports upper abdominal pain, nausea. Historical: - Allergies: 12:50 Codeine; ll1 - PMHx: 12:50 Colitis; GERD; ulcertive colitis; ll1 - PSHx: 12:50 hernia repair; Tonsillectomy; ll1 - Immunization history:: Adult Immunizations up to date. - Social history:: Smoking status: Patient reports the use of cigarette tobacco products, denies chronic smoking, but will smoke occasionally. Screenin:12 [facility] ED Fall Risk Assessment (Adult) Score/Fall Risk Level 0 - 2 = Low Risk. Abuse iw screen: Denies threats or abuse. Denies injuries from another. Nutritional screening: No deficits noted. Tuberculosis screening: No symptoms or risk factors identified. Assessment: 13:12 General: Appears in no apparent distress. Behavior is calm, cooperative. Pain: iw Complains of pain in right upper quadrant and left upper quadrant. Neuro: Level of Consciousness is awake, alert, obeys commands, Oriented to person, place, time, situation, Moves all extremities. Full function. Cardiovascular: Patient's skin is warm and dry. Respiratory: Respiratory effort is even, unlabored, Respiratory pattern is regular, symmetrical. GI: Abdomen is non-distended, Bowel sounds present X 4 quads. Abd is soft X 4 quads Abdomen is tender to palpation in right upper quadrant. Derm: Skin is intact, is healthy with good turgor. Musculoskeletal: Range of motion: intact in all extremities. 15:16 Reassessment: Patient states feeling better. Patient states symptoms have improved. me1 Vital Signs: 13:01 BP 151 / 96; Pulse 95; Resp 18; Temp 99.4; Pulse Ox 100% on R/A; Weight 115.67 kg; hb Height 5 ft. 10 in. ; Pain 8/10; 14:28 BP 118 / 87; Pulse 88; Pulse Ox 100% on R/A; mb9 15:15 BP 124 / 81; Pulse 81; Resp 16; Pulse Ox 100% on R/A; me1 13:01 Body Mass Index 36.59 (115.67 kg, 177.8 cm) hb 13:01 Pain Scale: Adult hb ED Course: 12:47 Patient arrived in ED. am2 12:47 Cecilio Merida MD is Private Physician. am2 12:49 Denise Parra MD is Attending Physician. sp3 12:50 Arm band placed on Patient placed in an exam room, on a stretcher. ll1 12:51 Triage completed. ll1 13:05 Margaret Azul, HARSHA is Primary Nurse. db 13:13 Initial lab(s) drawn, by me. Inserted saline lock: 20 gauge in right antecubital area, iw using aseptic technique. Blood collected. 13:38 Abdomen In Process Unspecified. EDMS 14:09 CBC with Diff Sent. me1 14:09 CMP Sent. me1 14:09 Lipase Sent. me1 14:09 Urinalysis w/ reflexes Sent. me1 14:10 Flu Sent. me1 15:16 Patient has correct armband on for positive identification. Provided Education on: me1 educated on medication- complete antibiotic course and follow up with PCP.. 15:16 No provider procedures requiring assistance completed. IV discontinued, intact, me1 bleeding controlled, No redness/swelling at site. Pressure dressing applied. Administered Medications: 14:07 Drug: Ondansetron IVP 4 mg Route: IVP; Site: right antecubital; me1 15:00 Follow up: Response: No adverse reaction; Nausea is decreased me1 14:07 Drug: HYDROmorphone IVP 1 mg Route: IVP; Site: right antecubital; me1 14:50 Follow up: Response: No adverse reaction; Pain is unchanged, physician notified me1 14:07 Drug: NS 0.9% IV 1000 ml Route: IV; Rate: 1 bolus; Site: right antecubital; me1 15:20 Follow up: IV Status: Order to discontinue infusion me1 14:52 Drug: HYDROmorphone IVP 1 mg Route: IVP; Site: right antecubital; iw 15:20 Follow up: Response: No adverse reaction; Pain is decreased me1 Medication: 13:12 VIS not applicable for this client. iw Outcome: 14:40 Discharge ordered by . sp3 15:16 Discharged to home ambulatory, with friend. me1 15:16 Condition: good 15:16 Discharge instructions given to patient, Instructed on discharge instructions, follow up and referral plans. medication usage, Demonstrated understanding of instructions, follow-up care, medications, Prescriptions given X 2. 15:22 Patient left the ED. me1 Signatures: Dispatcher [employer] Jolene Johnson RN RN Esther Nice RN RN Bernie Stanton am2 Soraya Tellez RN RN ll1 Denise Parra MD MD sp3 Margaret Azul RN RN db Breneman, Mary Beth, RN RN mb9 Breanna March RN RN me1 Corrections: (The following items were deleted from the chart) 13:02 12:50 Chief complaint: Patient states: RUQ abdominal pain ll1 hb
== END 2023-04-25 15:22 | disposition home or self-care (01) ==
LOC: ER 12:46
DX: K52.89 Other specified noninfective gastroenteritis and colitis (principal); K20.90 Esophagitis, unspecified without bleeding; F17.210 Nicotine dependence, cigarettes, uncomplicated; Z88.5 Allergy status to narcotic agent
CPT/HCPCS: 87040 ×2; 85025; 36415; 83690; 80053; 87804 ×2; 74177; Q9967; J1170 ×2; J2405; J7030

== ENCOUNTER → 2023-10-26 | Emergency (ER) | payer BC ==
--- NOTE | 2023-10-26 13:17 | ER ---
Nurse's Notes [facility] Name: Slava Biswas Age: 38 yrs Sex: Male : 1985 Arrival Date: 10/26/2023 Time: 10:17 Bed [id number] Private MD: Cecilio Merida Diagnosis: Presentation: 10/26 10:38 Chief complaint: RLQ pain and N/d since 0400 today. Hx of ulcerative colitis. hb Coronavirus screen: At this time, the client does not indicate any symptoms associated with coronavirus-19. Ebola Screen: No symptoms or risks identified at this time. Initial Sepsis Screen: Does the patient meet any 2 criteria? No. Patient's initial sepsis screen is negative. Does the patient have a suspected source of infection? No. Patient's initial sepsis screen is negative. Risk Assessment: Do you want to hurt yourself or someone else? Patient reports no desire to harm self or others. Onset of symptoms was October 26, 2023. 10:38 Method Of Arrival: Ambulatory hb 10:38 Acuity: TRACEE 3 hb Historical: - Allergies: 10:39 No Known Allergies; hb - Home Meds: 10:39 mesalamine Oral [Active]; Omeprazole Oral [Active]; hb - PMHx: 10:39 Colitis; GERD; ulcertive colitis; hb - PSHx: 10:39 hernia repair; Tonsillectomy; hb - Immunization history:: Client reports receiving the 2nd dose of the Covid vaccine, Flu vaccine is up to date. - Social history:: Smoking status: Patient denies any tobacco usage or history of. Assessment: 12:06 Reassessment: pt left ED due to family emergency. mb9 Vital Signs: 10:38 BP 160 / 105; Pulse 74; Resp 16; Temp 98.3; Pulse Ox 100% on R/A; Weight 113.4 kg; hb Height 5 ft. 10 in. ; Pain 8/10; 10:38 Body Mass Index 35.87 (113.40 kg, 177.8 cm) hb 10:38 Pain Scale: Adult hb ED Course: 10:18 Patient arrived in ED. rg4 10:18 Cecilio Merida MD is Private Physician. rg4 10:27 Denise Parra MD is Attending Physician. sp3 10:39 Triage completed. hb 10:40 Arm band placed on. hb Administered Medications: No medications were administered Outcome: 13:15 Eloped from waiting room, after seeing physician hb 13:15 unknown 13:16 Patient left the ED. hb Signatures: Esther Nice, RN RN Garima Gerard rg4 Denise Parra MD MD sp3 Mary Carmen Miranda RN RN mb9
[2023-10-26 14:52] VITALS: BP 160/105; TEMP 98.3; O2SAT 100
== END | disposition left against medical advice (07) ==
LOC: ER 10:17
DX: R10.31 Right lower quadrant pain (principal); R11.2 Nausea with vomiting, unspecified
CPT/HCPCS: 99281

== ENCOUNTER → 2023-10-30 | Emergency (ER) | payer BC ==
[~2023-10-30] MED LIST: HYDROCODONE/APAP 7.5/325 MG TAB ONE; METHYLPREDNISOLONE 125 MG INJ ONE; MORPHINE 4 MG/ML SYR ONE; NA CHLORIDE 0.9% 1,000 ML ONE; ONDANSETRON 4 MG/2 ML VIAL ONE
[2023-10-30 18:17] LABS: Absolute Lymphocytes (CBC) 1.7 K/uL (0.7-4.9); Hematocrit 44.5 % (39.6-49.0); Lymphocytes % 20.4 % (15.3-44.8); MCV 92.1 fL (80-100); MPV 7.9 fL (7.6-11.3); Platelets 284 thou/uL (152-406); RBC Red Blood Cell Count 4.83 M/uL (4.33-5.43)
[2023-10-30 18:37] LABS: Albumin 3.7 g/dL (3.4-5.0); Bilirubin Total 0.8 mg/dL (0.2-1.0); Potassium 3.4 mEq/L (3.5-5.1); Protein, Total 7.5 g/dL (6.4-8.2)
--- NOTE | 2023-10-30 20:38 | RAD REPORT ---
EXAM DESCRIPTION: CT - Abdomen Pelvis W Contrast - 10/30/2023 8:14 pm CLINICAL HISTORY: ABD PAIN COMPARISON: Abdomen Pelvis W Contrast dated 10/01/2023; Abdomen Pelvis W Contrast dated 3; Abdomen Pelvis W Contrast dated 02/20/2021; Abdomen Pelvis W Contrast dated 09/06/2020 TECHNIQUE: Thin cut axial CT imaging of the abdomen and pelvis was performed following intravenous a dministration of 100 mL Isovue 300. Multiplanar reformats were generated and reviewed. All CT scans are performed using dose optimization technique as appropriate and may include automated exposure control or mA/KV adjustment according to patient size. FINDINGS: No suspicious findings in the lung bases. The liver, spleen, adrenal glands, and pancreas show no suspicious findings. Gallbladder and biliary tree are also without suspicious finding. Symmetric renal function is seen with no hydronephrosis or suspicious renal mass. 2 mm right lower re nal pole nonobstructing calculus. No dilated bowel loops or bowel wall thickening. Long segments of fluid opacification with short-segm ent air-fluid levels within nondilated small bowel loops. No focal transition point. Mild fluid opaci fication of the proximal colon. No free air, free fluid or inflammatory stranding. No hernia, mass or bulky lymphadenopathy. The urinary bladder is without significant finding. No suspicious bony findings. IMPRESSION: Long segments of fluid opacification within nondistended small bowel, a nonspecific find ing, which may relate to diarrheal state or mild enteritis. Right lower renal pole 2 mm nonobstructing calculus.
--- NOTE | 2023-10-30 21:02 | EDPHYS ---
Physician Documentation [facility] Name: Slava Biswas Age: 38 yrs Sex: Male : 1985 Arrival Date: 10/30/2023 Time: 17:43 Bed 18 Private MD: Cecilio Merida ED Physician Bacilio Newton Historical: - Allergies: 10/30 17:49 No Known Allergies; ap3 - PMHx: 17:49 Colitis; GERD; ulcertive colitis; ap3 - PSHx: 17:49 hernia repair; Tonsillectomy; ap3 - Immunization history:: Client reports receiving the 2nd dose of the Covid vaccine, Flu vaccine is up to date. - Social history:: Smoking status: Patient denies any tobacco usage or history of. Vital Signs: 17:47 Pulse 110; Resp 18; Temp 98.6; Pulse Ox 100% on R/A; Weight 113.4 kg; Height 5 ft. 10 ap3 in. ; Pain 8/10; 17:50 BP 151 / 103; ap3 18:28 BP 128 / 90; Pulse 104; Resp 18; Pulse Ox 100% ; cp4 17:47 Body Mass Index 35.87 (113.40 kg, 177.8 cm) ap3 17:47 Pain Scale: Adult ap3 Stella Coma Score: 20:58 Eye Response: spontaneous(4). Motor Response: obeys commands(6). Verbal Response: nw1 oriented(5). Total: 15. MDM: 17:47 Patient medically screened. kb 10/30 17:50 Order name: CBC with Diff; Complete Time: 18:32 kb 10/30 17:50 Order name: CMP; Complete Time: 18:38 kb 10/30 17:50 Order name: Lipase; Complete Time: 18:38 kb 10/30 19:50 Order name: CT Abd/Pelvis - IV Contrast Only; Complete Time: 20:42 kb 10/30 17:50 Order name: IV Saline Lock; Complete Time: 18:20 kb 10/30 17:50 Order name: Labs collected and sent; Complete Time: 18:12 kb Administered Medications: 18:19 Drug: MethylPrednisoLONE IVP 125 mg IVP once Route: IVP; Site: right antecubital; cp4 18:20 Drug: NS 0.9% IV 1000 ml IV at 1 bolus Per protocol; 1000 mL bolus Route: IV; Rate: 1 cp4 bolus; Site: right antecubital; 18:20 Drug: Ondansetron IVP 4 mg IVP once; over 2 minutes Route: IVP; Site: right antecubital;cp4 18:20 Drug: morphine IVP or IV 4 mg IVP once over 4 mins Route: IVP; Infused Over: 4 mins; cp4 Site: right antecubital; 20:12 Drug: morphine IVP or IV 4 mg IVP once over 4 mins Route: IVP; Infused Over: 4 mins; nw1 Site: right antecubital; 21:04 CANCELLED (Patient Refused): norco10 mg-325 mg 1 tabs PO once kb 21:17 Not Given (Physician Discretion): morphineor iv 4 mg IVP once over 4 mins nw1 21:22 Drug: Hydrocodone-Acetaminophen PO (7.5 mg-325 mg) 1 tabs PO once; RASS on ADMIN: nw1 Combtv4, Very Agttd3, Agttd2, Rstlss1, AlertClm0, Drwsy-1, Lt Sdtn-2, Mod Sdtn-3, Dp Sdtn-4, UnArsble-5 Route: PO; Disposition Summary: 10/30/23 21:01 Discharge Ordered Notes: Location: Home kb Condition: Stable kb Diagnosis - Lower abdominal pain, unspecified kb - Noninfective gastroenteritis and colitis, unspecified kb Followup: kb - With: Emergency Department - When: As needed - Reason: Worsening of condition Followup: kb - With: Private Physician - When: 2 - 3 days - Reason: Recheck today's complaints, Continuance of care, Re-evaluation by your physician Discharge Instructions: - Discharge Summary Sheet kb - Ulcerative Colitis, Adult kb - Abdominal Pain, Adult, [id number] kb Forms: - Medication Reconciliation Form kb - Thank You Letter kb - Antibiotic Education kb - Prescription Opioid Use kb - Patient Portal Instructions kb - Leadership Thank You Letter kb Prescriptions: - Prednisone 20 mg Oral Tablet - take 1 tablet ORAL route once daily for 5 days; 5 tablet; Refills: 0, Product kb Selection Permitted Signatures: Dispatcher [employer] EDVeronica Guy FNP-C FNP-Bernie Smith RN RN Ksenia Arevalo cp4 Chris Watkins RN RN la4 Jess Ware RN RN nw1 Corrections: (The following items were deleted from the chart) 21:04 21:01 [place] PO 10 mg-325 mg 1 tabs PO once ordered. kb kb
--- NOTE | 2023-10-30 21:02 | ER ---
Nurse's Notes [facility] Name: Slava Biswas Age: 38 yrs Sex: Male : 1985 Arrival Date: 10/30/2023 Time: 17:43 Bed 18 Private MD: Cecilio Merida Diagnosis: Lower abdominal pain, unspecified;Noninfective gastroenteritis and colitis, unspecified Presentation: 10/30 17:47 Chief complaint: Patient states: he has been having abdominal pain since 10/26/23, and ap3 is having nausea/diarrhea. Patient reports his right lower quadrant pain to be an 8/10 on the pain scale at this time. Coronavirus screen: At this time, the client does not indicate any symptoms associated with coronavirus-19. Ebola Screen: No symptoms or risks identified at this time. Initial Sepsis Screen: Does the patient meet any 2 criteria? HR > 90 bpm. Does the patient have a suspected source of infection? Yes: Acute abdominal pain. Risk Assessment: Do you want to hurt yourself or someone else? Patient reports no desire to harm self or others. Onset of symptoms was October 26, 2023. 17:47 Method Of Arrival: Ambulatory ap3 17:47 Acuity: TRACEE 3 ap3 Triage Assessment: 17:50 General: Appears in no apparent distress. Behavior is calm, cooperative, appropriate ap3 for age. Pain: Complains of pain in right lower quadrant Pain currently is 8 out of 10 on a pain scale. Pain began gradually. Neuro: Level of Consciousness is awake, alert, obeys commands, Oriented to person, place, time, situation, Appropriate for age. Cardiovascular: Patient's skin is warm and dry. Respiratory: Airway is patent Respiratory effort is even, unlabored, Respiratory pattern is regular, symmetrical. GI: Reports lower abdominal pain, diarrhea, nausea. Historical: - Allergies: 17:49 No Known Allergies; ap3 - PMHx: 17:49 Colitis; GERD; ulcertive colitis; ap3 - PSHx: 17:49 hernia repair; Tonsillectomy; ap3 - Immunization history:: Client reports receiving the 2nd dose of the Covid vaccine, Flu vaccine is up to date. - Social history:: Smoking status: Patient denies any tobacco usage or history of. Screenin:50 [facility] ED Fall Risk Assessment (Adult) History of falling in the last 3 months, ap3 including since admission No falls in past 3 months (0 pts). Abuse screen: Denies threats or abuse. Nutritional screening: No deficits noted. Tuberculosis screening: No symptoms or risk factors identified. Assessment: 20:58 Reassessment: Report received and introductions made. Pt noted in bed. Pt states nw1 intermittent RLQ abdominal pain. Pt states that pain has returned and requested pain medication. Call light at bedside. Updated/Reviewed POC with patient and pt verbalized understanding. Will notify practitioner of stated pain. General: Appears uncomfortable, Behavior is calm, cooperative, appropriate for age. Pain: Complains of pain in abdomen and right lower quadrant Pain does not radiate. Pain at worst was 8 out of 10 on a pain scale. Quality of pain is described as aching, sharp. Neuro: Level of Consciousness is awake, alert, obeys commands, Oriented to person, place, time, situation, Appropriate for age. Cardiovascular: Reports None Denies chest pain, diaphoresis, fatigue, lightheadedness, nausea, palpitations, shortness of breath, syncope, vomiting, Heart tones present Capillary refill < 3 seconds in bilateral fingers. Respiratory:. GI: Bowel sounds present X 4 quads. Abd is soft and non tender X 4 quads. Derm: No deficits noted. No signs and/or symptoms reported regarding the dermatologic system. Skin is intact, is healthy with good turgor, Skin is dry. Musculoskeletal: No signs and/or symptoms reported regarding the musculoskeletal system. Vital Signs: 17:47 Pulse 110; Resp 18; Temp 98.6; Pulse Ox 100% on R/A; Weight 113.4 kg; Height 5 ft. 10 ap3 in. ; Pain 8/10; 17:50 BP 151 / 103; ap3 18:28 BP 128 / 90; Pulse 104; Resp 18; Pulse Ox 100% ; cp4 17:47 Body Mass Index 35.87 (113.40 kg, 177.8 cm) ap3 17:47 Pain Scale: Adult ap3 [place] Coma Score: 20:58 Eye Response: spontaneous(4). Motor Response: obeys commands(6). Verbal Response: nw1 oriented(5). Total: 15. ED Course: 17:45 Patient arrived in ED. mr 17:45 Cecilio Merida MD is Private Physician. mr 17:47 Ver[facility] Holcomb [facility]C [facility]. kb 17:47 Bacliio Newton MD is Attending Physician. kb 17:49 Triage completed. ap3 17:51 Arm band placed on left wrist. ap3 18:03 Ksenia Carbajal is Primary Nurse. cp4 18:12 CBC with Diff Sent. cp4 18:12 CMP Sent. cp4 18:12 Lipase Sent. cp4 19:20 Placed in gown. Bed in low position. Call light in reach. Side rails up X2. Provided nw1 Education on: POC. Client placed on continuous cardiac and pulse oximetry monitoring. NIBP monitoring applied. alarm security or surveillance monitor on. Pulse ox on. NIBP on. Warm blanket given. Verbal reassurance given. 19:20 No provider procedures requiring assistance completed. IV is patent, is intact, with nw1 fluids infusing freely, with good blood return, Flushed right antecubital with 5 ml normal saline. 20:15 CT Abd/Pelvis - IV Contrast Only In Process Unspecified. EDMS Administered Medications: 18:19 Drug: MethylPrednisoLONE IVP 125 mg IVP once Route: IVP; Site: right antecubital; cp4 18:20 Drug: NS 0.9% IV 1000 ml IV at 1 bolus Per protocol; 1000 mL bolus Route: IV; Rate: 1 cp4 bolus; Site: right antecubital; 18:20 Drug: Ondansetron IVP 4 mg IVP once; over 2 minutes Route: IVP; Site: right antecubital;cp4 18:20 Drug: morphine IVP or IV 4 mg IVP once over 4 mins Route: IVP; Infused Over: 4 mins; cp4 Site: right antecubital; 20:12 Drug: morphine IVP or IV 4 mg IVP once over 4 mins Route: IVP; Infused Over: 4 mins; nw1 Site: right antecubital; 21:04 CANCELLED (Patient Refused): norco10 mg-325 mg 1 tabs PO once kb 21:17 Not Given (Physician Discretion): morphineor iv 4 mg IVP once over 4 mins nw1 21:22 Drug: Hydrocodone-Acetaminophen PO (7.5 mg-325 mg) 1 tabs PO once; RASS on ADMIN: nw1 Combtv4, Very Agttd3, Agttd2, Rstlss1, AlertClm0, Drwsy-1, Lt Sdtn-2, Mod Sdtn-3, Dp Sdtn-4, UnArsble-5 Route: PO; Medication: 20:58 VIS not applicable for this client. nw1 Outcome: 21:01 Discharge ordered by MD. deshpande 21:24 Discharged to home ambulatory, by HARSHA Crowe nw1 21:24 Condition: stable 21:24 Discharge instructions given to patient, by HARSHA Crowe Instructed on discharge instructions, medication usage, Demonstrated understanding of instructions, Prescriptions given X 1, 21:25 Patient left the ED. nw1 Signatures: Dispatcher [employer] EDMS Veronica Holcomb, TANK CLEANER-C TANK CLEANER-Ckb Mary Carmen Eller, Reg Reg mr Bernie Espinoza, RN RN [email or web address] Ksenia Carbajal cp4 Jess Ware, RN RN nw1
[2023-10-30 22:35] VITALS: BP 128/90; TEMP 98.6; O2SAT 100
== END ==
LOC: ER 17:43
DX: K52.9 Noninfective gastroenteritis and colitis, unspecified (principal)
CPT/HCPCS: 85025; 36415; 83690; 80053; 74177; Q9967; J2930; J2405; J7030